=== PATIENT | female | born 1955 | race Caucasian/White ===

== ENCOUNTER 2023-03-06 09:54 | Outpatient (OUT) | payer MEDICARE, SELFPAY ==
--- NOTE | 2023-03-06 10:03 | MM_ITS ---
Patient: VANI KAUFFMAN Exam Date: 03/06/2023 : 1955 Gender:F Ordering : Judi Jimenez Admission #: [id number] Family : Order #: [id number] CLICK HERE TO VIEW EXAM RADIOLOGY REPORT PROCEDURE: MM TOMOSYNTHESIS SCREENING BI COMPARISON: MG MAMM SCREEN SISSY W CAD, 10/10/2020. INDICATIONS: Screening Mammogram Z12.31 Calculator Name NCI Breast Cancer Risk Assessment Tool 5 Year Breast Cancer Risk 4.70% Lifetime Breast Cancer Risk 16.00% Personal Breast Cancer No Personal Ovarian Cancer No Treatments None Family Cancers Mother with breast cancer at age 65; Aunt-maternal with breast cancer at age ~71; Aunt-maternal with breast cancer at age ~74; Cousin-maternal with breast cancer at age ~50; Grandmother-maternal with uterus cancer at age 80; Cousin-paternal with colon cancer at age ~57. LOCATION: [facility] BREAST COMPOSITION: Scattered areas fibroglandular density. FINDINGS: DIAGNOSTIC CATEGORY 2--BENIGN FINDING: RIGHT BREAST: No significant suspicious finding. Scattered benign-appearing calcifications are present. LEFT BREAST: No significant suspicious finding. Scattered benign-appearing calcifications are present. RECOMMENDATIONS: ROUTINE MAMMOGRAM AND CLINICAL EVALUATION IN 12 MONTHS. PLEASE NOTE: A NORMAL MAMMOGRAM DOES NOT EXCLUDE THE POSSIBILITY OF BREAST CANCER. A CLINICALLY SUSPICIOUS PALPABLE LUMP SHOULD BE BIOPSIED. Dictated by: Alok Booker M.D. on 03/06/2023 at 15:25 Approved by: Alok Booker M.D. on 03/06/2023 at 15:28
--- NOTE | 2023-03-06 10:04 | XR_ITS ---
[address] [address] Patient Name: VANI KAUFFMAN MRN: [id number] date: 1955 Sex: F Assigned Patient Location: [facility] Current Patient Location: [facility] Accession/Order Number: [id number] Exam Date: 03/06/2023 10:10 Report Date: 03/06/2023 11:09 At the request of: JASMINE KAMARA Procedure: XR DEXA axial skeleton EXAMINATION: XR DEXA axial skeleton HISTORY: Menopause Z78.0 COMPARISON: DEXA bone densitometry 12/08/2013 TECHNIQUE: Dual-energy X-ray absorptiometry (DXA) was performed. FINDINGS: SPINE ANALYSIS: Average bone mineral density is 1.424 g/cm2. T-score (standard deviation relative to young adult mean): 1.9 . +0.5% change since prior study. HIP ANALYSIS: Lowest bone mineral density is within the left femoral neck, 0.932 g/cm2. T-score (standard deviation relative to young adult mean): -0.8 . -4.2% change since prior study. IMPRESSION: [employer] Classification: Normal - Low Fracture Risk Electronically authenticated by: LARISSA MARTIN Date: 03/06/2023 11:09
== END 2023-03-06 09:55 ==
LOC: MAMMO 09:55
PROVIDERS: PCP Nurse Practitioner; Visit Provider Nurse Practitioner
DX: Z12.31 Encounter for screening mammogram for malignant neoplasm of breast (principal); Z78.0 Asymptomatic menopausal state; Z80.3 Family history of malignant neoplasm of breast; Z80.49 Family history of malignant neoplasm of other genital organs; Z80.0 Family history of malignant neoplasm of digestive organs
CPT/HCPCS: 77063; 77067; 77080

== ENCOUNTER 2023-03-30 07:33 | Outpatient (OUT) | payer MEDICARE, SELFPAY ==
[2023-03-30 08:21] LABS: Alanine Aminotransferase 32 U/L (14-59); Albumin Globulin Ratio 0.9; Albumin Level 3.6 g/dL (3.4-5.0); Alkaline Phosphatase 102 U/L (46-116); Anion Gap 11.8; Aspartate Amino Transferase 19 U/L (15-37); BUN Creatinine Ratio 29.9; Bilirubin Total 0.3 mg/dL (0.2-1.0); Calcium 9.1 mg/dL (8.5-10.1); Carbon Dioxide 30.4 mmol/L (21.0-32.0); Chloride 105 mmol/L (98-107); Estimated GFR (African America >60 (>=60); Estimated GFR (Non-African Ame >60 (>=60); Globulin 3.9 g/dL; Glucose 138 mg/dL (74-106); Potassium 4.2 mmol/L (3.5-5.1); Sodium 143 mmol/L (136-145); Total Protein 7.5 g/dL (6.4-8.2)
[2023-03-30 11:36] LABS: Estimated Average Glucose 163 mg/dL; Glycohemoglobin A1C 7.3 % (4.5-6.2)
== END 2023-03-30 07:34 | disposition home or self-care (01) ==
LOC: LAB 07:34
PROVIDERS: PCP Nurse Practitioner; Visit Provider Nurse Practitioner
DX: E11.65 Type 2 diabetes mellitus with hyperglycemia (principal)
CPT/HCPCS: 36415; 80053; 83036

== ENCOUNTER 2023-08-01 10:05 | Outpatient (OUT) | payer MEDICARE, SELFPAY ==
--- NOTE | 2023-08-01 | XR_ITS ---
The [address] [address] Patient Name: VANI KAUFFMAN MRN: [id number] date: 1955 Sex: F Assigned Patient Location: LAB Current Patient Location: Accession/Order Number: [id number] Exam Date: 08/01/2023 10:25 Report Date: 08/03/2023 08:38 At the request of: JASMINE KAMARA Procedure: XR cervical spine 2-3V EXAMINATION: XR cervical spine 2-3V HISTORY: Degenerative Disc Disease, Cervical (M50.30) , cervical pain for 3 months, right arm tingling COMPARISON: XR C-spine 12/18/2021 FINDINGS: BONES: Mechanical fusion C5-6 via anterior plate and screws; no appreciable hardware fracture or loosening. Straightening of normal lordotic curvature. Normal height and alignment of the vertebral bodies; no fracture spondylolisthesis. Mild degenerative facet arthropathy throughout. DISC SPACES: Intervertebral disc spacers at C4-5, C5-6, C6-7-7. Mild/moderate narrowing C2-3 and C3-4. PARASPINOUS: Negative. No paraspinous abnormality is seen. OTHER: Negative. XR/XR cervical spine 2-3V IMPRESSION: 1. No appreciable acute abnormality. 2. Stable surgical changes without evidence of hardware failure or change in alignment. 3. Multilevel mild-moderate degenerative changes; grossly stable. Electronically authenticated by: LARISSA MARTIN Date: 08/03/2023 08:38
[2023-08-01 12:23] LABS: Estimated Average Glucose 166 mg/dL; Glycohemoglobin A1C 7.4 % (4.5-6.2)
== END 2023-08-01 10:06 | disposition home or self-care (01) ==
LOC: LAB 10:10
PROVIDERS: PCP Nurse Practitioner; Visit Provider Nurse Practitioner
DX: M50.30 Other cervical disc degeneration, unspecified cervical region (principal); R53.83 Other fatigue; E11.65 Type 2 diabetes mellitus with hyperglycemia
CPT/HCPCS: 36415; 72040; 82607; 83036

== ENCOUNTER 2023-12-02 07:31 | Outpatient (OUT) | payer MEDICARE, SELFPAY ==
--- OUTSIDE RECORDS SUMMARY | 2023-12-02 07:34 | XMS_ITS | CCD ---
Author Name Unknown Address [id number] [place] [address] Organization [facility] Care Team Providers Care [employer] Name Role Phone Yash Caban Unavailable AICHHOLZ, INFECTION PREVENTION SPECIALIST JUDI Admitting Unavailable AICHHOLZ, INFECTION PREVENTION SPECIALIST JUDI Primary Care Unavailable AICHHOLZ, INFECTION PREVENTION SPECIALIST JUDI Consulting Unavailable AICHHOLZ, INFECTION PREVENTION SPECIALIST JUDI Attending Unavailable AICHHOLZ, INFECTION PREVENTION SPECIALIST JUDI Admitting Unavailable AICHHOLZ, INFECTION PREVENTION SPECIALIST JUDI Primary Care Unavailable AICHHOLZ, INFECTION PREVENTION SPECIALIST JUDI Consulting Unavailable AICHHOLZ, INFECTION PREVENTION SPECIALIST JUDI Attending Unavailable HOUSE, DR YANG Admitting Unavailable HOUSE, DR YANG Primary Care Unavailable HOUSE, DR YANG Consulting Unavailable HOUSE, DR YANG Attending Unavailable ROBCAESAR JOHANSEN Consulting Unavailable HOUSE, DR YANG Admitting Unavailable HOUSE, DR YANG Primary Care Unavailable HOUSE, DR YANG Attending Unavailable AICHJOSE, JUDI J Primary Care Physician ANH JUDI J Referring Unavailable AICHHOLZ, JUDI J Attending Unavailable AICHHOLZ, JUDI J Admitting Unavailable Aichholz TIMBER SETTER, Judi Unavailable Jamir Hare MD Primary Care Provider JUDI JIMENEZ Attending Unavailable Allergies Allergy Classification Reported Allergen(s) Allergy Type Date of Onset Reaction(s) Facility (4 sources) penicillAMINE Drug Allergy Unknown [employer] Other (4 sources) sulfaSALAzine Drug Allergy Unknown [facility] [employer] Other (1 source) Penicillins Drug allergy (disorder) 4 [facility] (1 source) Sulfonamides (Antibiotic) Drug allergy (disorder) 4 [facility] (1 source) Penicillins Propensity to adverse reactions 3 [facility] Healthcare (1 source) Sulfonamides (Antibiotic) Propensity to adverse reactions 3 [facility] Healthcare Medications Current Medications Medication Drug Class(es) Dates Sig (Normalized) Sig (Original) [id number] 200 actuat albuterol 0.09 mg/actuat metered dose inhaler (4 sources) beta2-Adrenergic Agonist Ventolin HFA 108 (90 Base) MCG/ACT Inhalation for 25 Active amLODIPine 10 mg oral tablet (5 sources) Dihydropyridine Calcium Channel Mabel Start: 10-01-2023 End: 12-30-2023 take 1 tablet by mouth in the morning amLODIPine (Norvasc) 10 MG tablet Indications: Primary hypertension (CMS/HCC) Take 1 tablet (10 mg) by mouth in the morning. 90 tablet 1 10/01/2023 12/30/2023 Active amLODIPine Besyl ate 10 MG Oral for 30 Active atorvastatin 80 mg oral tablet (1 source) HMG-CoA Reductase Inhibitor Start: 09-17-2023 End: 12-16-2023 take 1 tablet by mouth in the morning atorvastatin (Lipitor) 80 MG tablet Indications: Mixed hyperlipidemia (CMS/HCC) Take 1 tablet (80 mg) by mouth in the morning. 90 tablet 1 09/17/2023 12/16/2023 Active clopidogrel 75 mg oral tablet (5 sources) P2Y12 Platelet Inhibitor Start: 09-24-2023 End: 12-23-2023 take 1 tablet by mouth in the morning clopidogrel (Plavix) 75 MG tablet Indications: Primary hypertension (CMS/HCC) Take 1 tablet (75 mg) by mouth in the morning. 90 tablet 1 09/24/2023 12/23/2023 Active take 1 tablet by oscar th every twenty-four hours Plavix 75 MG 1 tablet Orally Once a day Active cyclobenzaprine hydrochloride 10 mg oral tablet (2 sources) Muscle Relaxant Start: 10-03-2021 take 1 tablet by mouth three times daily as needed Flexeril 10 MG 1 tablet as needed Orally tid for 15 day(s) Sep, Active Start: 10-03-2021 DULoxetine 30 mg delayed release oral capsule (4 sources) Serotonin and Norepinephrine Reuptake Inhibitor take 1 capsule by mouth every twenty-four hours DULoxetine HCl 30 MG 1 capsule Orally Once a day Active empagliflozin 25 mg oral tablet (5 sources) Sodium-Glucose Cotransporter 2 Inhibitor Start: End: 024 take 1 tablet by mouth in the morning empagliflozin (Jardiance) 25 MG Indications: Type 2 diabetes mellitus treated without insulin (CMS/HCC) Take 1 tablet (25 mg) by mouth in the morning. 90 tablet 1 09/07/2023 12/06/2023 Active take 1 tablet by oscar th every twenty-four hours Jardiance 25 MG 1 tablet Orally Once a day Active ergocalciferol 1.25 mg oral capsule (1 source) Provitamin D2 Compound take 1 capsule by mouth every week ergocalciferol (Vitamin D-2) 1.25 MG (44391 UT) capsule Take 1.25 mg by mouth 1 (one) time per week 0 Active famotidine 20 mg oral tablet (2 sources) Histamine-2 Receptor Antagonist Start: 2023 End: 2023 take 1 tablet by mouth at bedtime famotidine (Pepcid) 20 MG tablet Indications: Gastroesophageal reflux disease without esophagitis Take 1 tablet (20 mg) by mouth at bedtime 30 tablet 5 11/13/2023 12/13/2023 Active 3 ml insulin aspart protamine, human 70 unt/ml / insulin aspart, human 30 unt/ml pen injector (4 sources) Insulin Analog NovoLOG Mix 70/3 0 FlexPen (70-30) 100 UNIT/ML Subcutaneous for 30 Active insulin detemir 100 unt/ml injectable solution (1 source) Insulin Analog inject 60 [IU] by subcutaneous injection at bedtime insulin detemir (Levemir) 100 UNIT/ML injection Inject 60 Units under the skin at bedtime 0 Active losartan potassium 100 mg oral tablet (4 sources) Angiotensin 2 Receptor Mabel Losartan Potassium 1 00 MG Oral for 30 Active metFORMIN hydrochloride 1000 mg oral tablet (5 sources) Biguanide Start: 2022 End: 2023 take 1 tablet by mouth in the morning metFORMIN (Glucophage) 1000 MG tablet Indications: Type 2 diabetes mellitus treated without insulin (CMS/HCC) Take 1 tablet (1,000 mg) by mouth in the morning and 1 tablet (1,000 mg) in the evening. Take with meals. 180 tablet 1 09/07/2023 12/06/2023 Active metFORMIN HCl 10 00 MG Oral for 30 Active pantoprazole 40 mg delayed release oral tablet (1 source) Proton Pump Inhibitor Start: 10-06-2023 End: 01-04-2024 take 1 tablet by mouth in the morning pantoprazole (ProtoNix) 40 MG EC tablet Indications: Gastroesophageal reflux disease without esophagitis Take 1 tablet (40 mg) by mouth in the morning. 90 tablet 1 10/06/2023 01/04/2024 Active semaglutide (Ozempic, 1 MG/DOSE,) 4 MG/3ML solution pen-injector (1 source) inject 1 mg by subcutaneous injection every week semaglutide (Ozempic, 1 MG/DOSE,) 4 MG/3ML solution pen-injector Inject 1 mg under the skin 1 (one) time per week 0 Active Problems Problem Classification Problem Date Documented Date Episodic/Chronic Chronic obstructive pulmonary disease and bronchiectasis (1 source) Chronic obstructive pulmonary disease, unspecified; Translations: [COPD UNSPECIFIED] Onset: 05-27-2022 Chronic Diabetes mellitus with complications (4 sources) Type 2 diabetes mellitus with hyperglycemia; Translations: [TYPE 2 DM W/HYPERGLYCEMIA] Onset: 12-27-2022 Chronic Diabetes mellitus without complication (1 source) Type 2 diabetes mellitus without complications; Translations: [TYPE 2 DM WITHOUT COMPLICATIONS] Onset: 05-27-2022 Chronic Disorders of lipid metabolism (2 sources) Hyperlipidemia, unspecified; Translations: [Mixed hyperlipidemia] Onset: 12-30-2022 09-17-2023 Chronic Esophageal disorders (2 sources) Gastroesophageal reflux disease without esophagitis; Translations: [Gastro-esophageal reflux disease without esophagitis] Onset: 10-06-2023 11-13-2023 Chronic Essential hypertension (2 sources) Essential (primary) hypertension; Translations: [Essential hypertension] Onset: 05-27-2022 10-01-2023 Chronic Malaise and fatigue (1 source) Other fatigue; Translations: [OTHER FATIGUE] Onset: 12-30-2022 Episodic Osteoarthritis (1 source) Unspecified osteoarthritis, unspecified site; Translations: [UNSPECIFIED OSTEOARTHRITIS UNS SITE] Onset: 05-27-2022 Chronic Other connective tissue disease (4 sources) History of total knee arthroplasty; Translations: [Presence of right artificial knee joint] Chronic Other liver diseases (4 sources) Abnormal levels of other serum enzymes; Translations: [ABNORMAL LEVELS OTHER SERUM ENZYMES] Onset: 01-17-2023 Episodic Spondylosis; intervertebral disc disorders; other back problems (11 sources) Cervical spondylosis; Translations: [Other spondylosis with radiculopathy, cervical region] Onset: 08-12-2021 Resolved: 12-18-2021 Chronic Results Test Name Value Interpretation Reference Range Facility Consent for Treatmenton Consent for Treatment [id number] #1.00TIFF Normal [facility] EMG Electromyographyon 09-11 EMG Electromyography [id number] 2 [id number] 1#1.00TIFF Normal [facility] Neurology Forms- [employer] Neurology Forms- Text [id number] 12 [id number] 0#1.00TIFF Normal [facility] Physician Orderon 06-03-2023 Physician Order [id number] #1.00CD:127 Normal [facility] LIVER PROFILEon 01-17-2023 Albumin [Mass/Vol] 3.4 g/dL Normal 3.4-5.0 [facility] Comment on above: Performed By: #### C BC #### [facility] [address] [place] [address] Dr. Willam Novoa Albumin/Globulin [Mass ratio] 0.9 {ratio} Normal [facility] Comment on above: Performed By: #### C BC #### [facility] [address] [place] [address] Dr. Willam Novoa ALP [Catalytic activity/Vol] 116 U/L Normal 46-116 [facility] Comment on above: Performed By: #### C BC #### [facility] [address] [place] [address] Dr. Willam Novoa ALT [Catalytic activity/Vol] 35 U/L Normal 14-59 [facility] Comment on above: Performed By: #### C BC #### [facility] [address] [place] [address] Dr. Willam Novoa AST [Catalytic activity/Vol] 14 U/L Critically low 15-37 [facility] Comment on above: Performed By: #### C BC #### [facility] [address] [place] [address] Dr. Willam Novoa BILI, CONJUGATED 0.1 mg/dL Normal 0.0-0.2 [facility] Comment on above: Performed By: #### C BC #### [facility] [address] [place] [address] Dr. Willam Novoa Bilirubin [Mass/Vol] 0.3 mg/dL Normal 0.2-1.0 [facility] Comment on above: Performed By: #### C BC #### [facility] [address] [place] [address] Dr. Willam Novoa Globulin (S) [Mass/Vol] 4.0 g/dL Normal [facility] Comment on above: Performed By: #### C BC #### [facility] [address] [place] [address] Dr. Willam Novoa Protein [Mass/Vol] 7.4 g/dL Normal 6.4-8.2 [facility] Comment on above: Performed By: #### C BC #### [facility] [address] [place] [address] Dr. Willam Novoa CBC AUTO DIFFon 12-27-2022 BASO # 0.1 103/ul Normal 0.0-0.1 [facility] Comment on above: Performed By: #### C BC #### [facility] [address] [place] [address] Dr. Willam Novoa Basophils/100 WBC (Bld) 1.0 % Normal 0.2-2.[address] [facility] Comment on above: Performed By: #### C BC #### [facility] [address] [place] [address] Dr. iWllam Novoa EO # 0.3 103/ul Normal 0.0-0.7 [facility] Comment on above: Performed By: #### C BC #### [facility] [address] [place] [address] Dr. Willam Novoa Eosinophils/100 WBC (Bld) 3.6 % Normal 0.9-7.0 [facility] Comment on above: Performed By: #### C BC #### [facility] [address] [place] [address] Dr. Willam Novoa Erythrocyte distribution width (RBC) [Ratio] 13.2 % Normal 11.0-15.0 [facility] Comment on above: Performed By: #### C BC #### [facility] [address] [place] [address] Dr. Willam Novoa Hematocrit (Bld) [Volume fraction] 45.4 % Normal 36.0-48.0 [facility] Comment on above: Performed By: #### C BC #### [facility] [address] [place] [address] Dr. Willam Novoa Hemoglobin (Bld) [Mass/Vol] 14.4 g/dL Normal 12.0-16.0 [facility] Comment on above: Performed By: #### C BC #### [facility] [address] [place] [address] Dr. Willam Novoa IG # 0.03 10e3/ul Normal 0.00-0.03 [facility] Comment on above: Performed By: #### C BC #### [facility] [address] [place] [address] Dr. Willam Novoa IG % 0.4 % Normal 0.0-0.5 [facility] Comment on above: Performed By: #### C BC #### [facility] [address] [place] [address] Dr. Willam Novoa LYMPH # 2.5 103/ul Normal 1.2-3.8 [facility] Comment on above: Performed By: #### C BC #### [facility] [address] [place] [address] Dr. Willam Novoa Lymphocytes/100 WBC (Bld) 29.9 % Normal 20.5-60.0 [facility] Comment on above: Performed By: #### C BC #### [facility] [address] [place] [address] Dr. Willam Novoa MANUAL DIFF REQ NO Normal [facility] Comment on above: Performed By: #### C BC #### [facility] [address] [place] [address] Dr. Willam Novoa MCH (RBC) [Entitic mass] 29.9 pg Normal 26.7-34.0 [facility] Comment on above: Performed By: #### C BC #### [facility] [address] [place] [address] Dr. Willam Novoa MCHC (RBC) [Mass/Vol] 31.7 g/dL Normal 29.9-35.2 [facility] Comment on above: Performed By: #### C BC #### [facility] [address] [place] [address] Dr. Willam Novoa MCV (RBC) [Entitic vol] 94.4 fL Normal 81.0-99.[address] [facility] Comment on above: Performed By: #### C BC #### [facility] [address] [place] [address] Dr. Willam Novoa MONO # 0.8 103/ul Normal 0.3-0.8 [facility] Comment on above: Performed By: #### C BC #### [facility] [address] [place] [address] Dr. Willam Novoa Monocytes/100 WBC (Bld) 9.2 % Normal 1.7-12.[address] [facility] Comment on above: Performed By: #### C BC #### [facility] [address] [place] [address] Dr. Willam Novoa NEUT # 4.7 103/ul Normal 1.4-6.5 [facility] Comment on above: Performed By: #### C BC #### [facility] [address] [place] [address] Dr. Willam Novoa Neutrophils/100 WBC (Bld) 55.9 % Normal 43.0-75.0 [facility] Comment on above: Performed By: #### C BC #### [facility] [address] [place] [address] Dr. Willam Novoa Platelet mean volume (Bld) [Entitic vol] 9.4 fL Critically low 9.5-13.5 [facility] Comment on above: Performed By: #### C BC #### [facility] [address] [place] [address] Dr. Willam Novoa PLT 311 103/ul Normal 150-450 [facility] Comment on above: Performed By: #### C BC #### [facility] [address] [place] [address] Dr. Willam Novoa RBC 4.81 106/ul Normal 4.20-5.40 [facility] Comment on above: Performed By: #### C BC #### [facility] [address] [place] [address] Dr. Willam Novoa WBC 8.4 103/ul Normal 4.0-11.0 [facility] Comment on above: Performed By: #### C BC #### [facility] [address] [place] [address] Dr. Willam Novoa FREE T4on 12-27-2022 Free T4 [Mass/Vol] 1.13 ng/dL Normal 0.76-1.46 [facility] Comment on above: Performed By: #### C BC #### [facility] [address] [place] [address] Dr. Willam Novoa GLYCOHEMOGLOBIN A1Con 2022 ADA RECOMMENDATION SEE BELOW Normal [facility] Comment on above: Result Comment: ADA RECOMMENDED LIMIT 4.0 - 6.0 ADA THERAPEUTIC TARGET < 7.0 ACTION SUGGESTED > 7.0 Performed By: #### C BC #### [facility] [address] [place] [address] Dr. Willam Novoa Glucose [Mass/Vol] 258 mg/dL Normal [facility] Comment on above: Performed By: #### C BC #### [facility] [address] [place] [address] Dr. Willam Novoa HbA1c (Bld) [Mass fraction] 10.6 % Critically high 4.5-6.2 [facility] Comment on above: Performed By: #### C BC #### [facility] [address] [address] [address] Willam Novoa LIPID PROFILEon 12-27-2022 CHOL-HDL RATIO NORM SEE BELOW Normal [facility] Comment on above: Result Comment: 3.3 - 4.4 LOW RISK 4.4 - 7.1 AVERAGE RISK 7.1 - 11.0 MODERATE RISK >11.0 HIGH RISK Performed By: #### C BC #### [facility] [address] [address] [address] Willam Novoa Cholesterol [Mass/Vol] 158 mg/dL Normal <=200 [facility] Comment on above: Performed By: #### C BC #### [facility] [address] [address] [address] Willam Novoa Cholesterol in HDL [Mass/Vol] 51 mg/dL Normal 40-60 [facility] Comment on above: Performed By: #### C BC #### [facility] [address] [address] [address] Willam Novoa Cholesterol in LDL [Mass/Vol] 81.8 mg/dL Normal [facility] Comment on above: Performed By: #### C BC #### [facility] [address] [address] [address] Willam Novoa Cholesterol.total/Xiomy sterol in HDL [Mass ratio] 3.1 {ratio} Normal [facility] Comment on above: Performed By: #### C BC #### [facility] [address] [address] [address] Willam Novoa HDL NORMAL > or = 60 mg/dl - LOW CARDIOVASCULAR RISK <40 mg/dl - HIGH CARDIOVASCULAR RISK Normal [facility] Comment on above: Performed By: #### C BC #### [facility] [id number] Willam Novoa LDL CALC NORMAL SEE BELOW Normal [facility] Comment on above: Result Comment: <100 mg/dl OPTIMAL 100 - 129 mg/dl NEAR OR ABOVE OPTIMAL 130 - 159 mg/dl BORDERLINE HIGH 160 - 189 mg/dl HIGH >190 mg/dl VERY HIGH Performed By: #### C BC #### [facility] [address] [place], [place] [address] Dr. Willam Novoa Triglyceride [Mass/Vol] 126 mg/dL Normal <=150 [facility] Comment on above: Performed By: #### C BC #### [facility] [address] [place] [address] Dr. Willam Novoa VLDL CALC 25.2 mg/dL Normal [facility] Comment on above: Performed By: #### C BC #### [facility] [address] [place] [address] Dr. Willam Novoa MICROALBUMIN, RAND URon 12-04 mALB 1.3 mg/L Normal <=30.0 [facility] Comment on above: Performed By: #### M ALBR #### [facility] [address] [place] [address] Dr. Willam Novoa PROF 14(COMP METB)on 023 Albumin [Mass/Vol] 3.9 g/dL Normal 3.4-5.0 [facility] Comment on above: Performed By: #### C MP, LIPID, TSH #### [facility] [address] [place] [address] Dr. Willam Novoa Albumin/Globulin [Mass ratio] 1.0 {ratio} Normal [facility] Comment on above: Performed By: #### C MP, LIPID, TSH #### [facility] [address] [place] [address] Dr. Willam Novoa ALP [Catalytic activity/Vol] 161 U/L Critically high 46-116 [facility] Comment on above: Performed By: #### C MP, LIPID, TSH #### [facility] [address] [place] [address] Dr. Willam Novoa ALT [Catalytic activity/Vol] 29 U/L Normal 14-59 [facility] Comment on above: Performed By: #### C MP, LIPID, TSH #### [facility] [address] [place] [address] Dr. Willam Novoa Anion gap [Moles/Vol] 10.7 mmol/L Normal [facility] Comment on above: Performed By: #### C MP, LIPID, TSH #### [facility] [address] [address] [address] Willam Novoa AST [Catalytic activity/Vol] 10 U/L Critically low 15-37 [facility] Comment on above: Performed By: #### C MP, LIPID, TSH #### [facility] [address] [address] [address] Willam Novoa Bilirubin [Mass/Vol] 0.3 mg/dL Normal 0.2-1.0 [facility] Comment on above: Performed By: #### C MP, LIPID, TSH #### [facility] [address] [address] [address] Willam Novoa Calcium [Mass/Vol] 9.4 mg/dL Normal 8.5-10.1 [facility] Comment on above: Performed By: #### C MP, LIPID, TSH #### [facility] [address] [place] [address] Dr. Willam Novoa Chloride [Moles/Vol] 103 mmol/L Normal 98-107 [facility] Comment on above: Performed By: #### C MP, LIPID, TSH #### [facility] [address] [address] [address] Willam Novoa CO2 [Moles/Vol] 28.3 mmol/L Normal 21.0-32.0 [facility] Comment on above: Performed By: #### C MP, LIPID, TSH #### [facility] [address] [address] [address] Willam Novoa Creatinine [Mass/Vol] 0.72 mg/dL Normal 0.55-1.02 [facility] Comment on above: Performed By: #### C MP, LIPID, TSH #### [facility] [address] [address] [address] Willam Novoa EGFR-AF BULGARIAN >60 Normal >=60 [facility] Comment on above: Performed By: #### C MP, LIPID, TSH #### [facility] [address] [address] [address] Willam Novoa EGFR-NON AF BULGARIAN >60 Normal >=60 [facility] Comment on above: Performed By: #### C MP, LIPID, TSH #### [facility] [address] [address] [address] Willam Novoa Globulin (S) [Mass/Vol] 3.8 g/dL Normal [facility] Comment on above: Performed By: #### C MP, LIPID, TSH #### [facility] [address] [address] [address] Willam Novoa Glucose [Mass/Vol] 287 mg/dL Critically high 74-[address] [facility] Comment on above: Performed By: #### C MP, LIPID, TSH #### [facility] [address] [place] [address] Dr. Willam Novoa Potassium [Moles/Vol] 4.0 mmol/L Normal 3.5-5.1 [facility] Comment on above: Performed By: #### C MP, LIPID, TSH #### [facility] [address] [place] [address] Dr. Willam Novoa Protein [Mass/Vol] 7.7 g/dL Normal 6.4-8.2 [facility] Comment on above: Performed By: #### C MP, LIPID, TSH #### [facility] [address] [place] [address] Dr. Willam Novoa Sodium [Moles/Vol] 138 mmol/L Normal 136-145 [facility] Comment on above: Performed By: #### C MP, LIPID, TSH #### [facility] [address] [place] [address] Dr. Willam Novoa Urea nitrogen [Mass/Vol] 13.0 mg/dL Normal 7.0-18.0 [facility] Comment on above: Performed By: #### C MP, LIPID, TSH #### [facility] [address] [place] [address] Dr. Willam Novoa Urea nitrogen/Creatinine [Mass ratio] 18.1 mg/mg Normal [facility] Comment on above: Performed By: #### C MP, LIPID, TSH #### [facility] [address] [place] [address] Dr. Willam Novoa TSHon 12-27-2022 TSH 1.361 uIU/mL Normal 0.358-3.740 [facility] Comment on above: Performed By: #### C MP, LIPID, TSH #### [facility] [address] [place] [address] Dr. Willam Novoa UA RANDOM W/MICROSCOPICon BACTERIA NONE SEEN Normal NONE SEEN [facility] Comment on above: Performed By: #### U AMIC #### [facility] [address] [place] [address] Dr. Willam Novoa Bilirubin Ql (U) Negative Normal NEGATIVE [facility] Comment on above: Performed By: #### U AMIC #### [facility] [address] [place] [address] Dr. Willam Novoa CAST NONE SEEN Normal NONE SEEN [facility] Comment on above: Performed By: #### U AMIC #### [facility] [address] [place] [address] Dr. Willam Novoa Clarity (U) CLEAR Normal CLEAR [facility] Comment on above: Performed By: #### U AMIC #### [facility] [address] [place] [address] Dr. Willam Novoa Color (U) LT. YELLOW Normal YELLOW [facility] Comment on above: Performed By: #### U AMIC #### [facility] [address] [place] [address] Dr. Willam Novoa Crystals LM Nom (Urine sed) NONE SEEN Normal NONE SEEN [facility] Comment on above: Performed By: #### U AMIC #### [facility] [address] [place] [address] Dr. Willam Novoa Epithelial cells LM Ql (Urine sed) RARE Normal NONE SEEN /RARE [facility] Comment on above: Performed By: #### U AMIC #### [facility] [address] [place] [address] Dr. Willam Novoa Glucose Ql (U) >1000 Abnormal NEGATIVE [facility] Comment on above: Performed By: #### U AMIC #### [facility] [address] [place] [address] Dr. Willam Novoa Hemoglobin Ql (U) Negative Normal NEGATIVE [facility] Comment on above: Performed By: #### U AMIC #### [facility] [address] [address] [address] Willam Novoa Ketones Ql (U) Negative Normal NEGATIVE [facility] Comment on above: Performed By: #### U AMIC #### [facility] [address] [address] [address] Willam Novoa LEUKOCYTES Negative Normal NEGATIVE [facility] Comment on above: Performed By: #### U AMIC #### [facility] [address] [address] [address] Willam Novoa MUCOUS NONE SEEN Normal NONE SEEN [facility] Comment on above: Performed By: #### U AMIC #### [facility] [address] [place] [address] Dr. Willam Novoa Nitrite Ql (U) Negative Normal NEGATIVE [facility] Comment on above: Performed By: #### U AMIC #### [facility] [address] [address] [address] Willam Novoa pH (U) 6.0 [pH] Normal 5-9 [facility] Comment on above: Performed By: #### U AMIC #### [facility] [address] [address] [address] Willam Novoa RBC NONE SEEN Abnormal 0-2 [facility] Comment on above: Performed By: #### U AMIC #### [facility] [address] [address] [address] Willam Novoa SPEC GRAVITY <=1.005 Abnormal 1.005-<=1.025 [facility] Comment on above: Performed By: #### U AMIC #### [facility] [address] [address] [address] Willam Novoa UA PROTEIN Negative Normal NEGATIVE/ TRACE [facility] Comment on above: Performed By: #### U AMIC #### [facility] [address] [place] [address] Dr. Willam Novoa Urobilinogen Qn (U) 0.2 {Kalpesh'U}/dL Normal 0.2 - 1. 0 [facility] Comment on above: Performed By: #### U AMIC #### [facility] [address] [place] [address] Dr. Willam Novoa WBC NONE SEEN Normal NONE SEEN [facility] Comment on above: Performed By: #### U AMIC #### [facility] [address] [place] [address] Dr. Willam Novoa MICROALBUMIN URINEon 022 Albumin, Urine 5.9 ug/mL Normal Not Estab. [facility] Comment on above: Performed By: #### M ALBLC #### [facility] [address] [place] [address] Dr. Willam Novoa T4 LABCORPon 05-25-2022 T4 [Mass/Vol] 8.3 ug/dL Normal 4.5-12.0 [facility] Comment on above: Performed By: #### C BC #### [facility] [address] [place] [address] Dr. Willam Novoa CBC AUTO DIFFon 05-24-2022 BASO # 0.1 103/ul Normal 0.0-0.1 [facility] Comment on above: Performed By: #### C BC #### [facility] [address] [place] [address] Dr. Willam Novoa Basophils/100 WBC (Bld) 0.9 % Normal 0.2-2.[address] [facility] Comment on above: Performed By: #### C BC #### [facility] [address] [place] [address] Dr. Willam Novoa EO # 0.3 103/ul Normal 0.0-0.7 [facility] Comment on above: Performed By: #### C BC #### [facility] [address] [place] [address] Dr. Willam Novoa Eosinophils/100 WBC (Bld) 3.5 % Normal 0.9-7.0 [facility] Comment on above: Performed By: #### C BC #### [facility] [address] [place] [address] Dr. Willam Novoa Erythrocyte distribution width (RBC) [Ratio] 13.2 % Normal 11.0-15.0 [facility] Comment on above: Performed By: #### C BC #### [facility] [address] [place] [address] Dr. Willam Novoa Hematocrit (Bld) [Volume fraction] 45.7 % Normal 36.0-48.0 [facility] Comment on above: Performed By: #### C BC #### [facility] [address] [place] [address] Dr. Willam Novoa Hemoglobin (Bld) [Mass/Vol] 14.3 g/dL Normal 12.0-16.0 [facility] Comment on above: Performed By: #### C BC #### [facility] [address] [place] [address] Dr. Willam Novoa IG # 0.03 10e3/ul Normal 0.00-0.03 [facility] Comment on above: Performed By: #### C BC #### [facility] [address] [place] [address] Dr. Willam Novoa IG % 0.3 % Normal 0.0-0.5 [facility] Comment on above: Performed By: #### C BC #### [facility] [address] [place] [address] Dr. Willam Novoa LYMPH # 3.5 103/ul Normal 1.2-3.8 [facility] Comment on above: Performed By: #### C BC #### [facility] [address] [place] [address] Dr. Willam Novoa Lymphocytes/100 WBC (Bld) 38.7 % Normal 20.5-60.0 [facility] Comment on above: Performed By: #### C BC #### [facility] [address] [place] [address] Dr. Willam Novoa MANUAL DIFF REQ NO Normal [facility] Comment on above: Performed By: #### C BC #### [facility] [address] [place] [address] Dr. Willam Novoa MCH (RBC) [Entitic mass] 29.8 pg Normal 26.7-34.0 [facility] Comment on above: Performed By: #### C BC #### [facility] [address] [address] [address] Willam Novoa MCHC (RBC) [Mass/Vol] 31.3 g/dL Normal 29.9-35.2 [facility] Comment on above: Performed By: #### C BC #### [facility] [address] [place] [address] Dr. Willam Novoa MCV (RBC) [Entitic vol] 95.2 fL Normal 81.0-99.[address] [facility] Comment on above: Performed By: #### C BC #### [facility] [address] [place] [address] Dr. Willam Novoa MONO # 0.8 103/ul Normal 0.3-0.8 [facility] Comment on above: Performed By: #### C BC #### [facility] [address] [place] [address] Dr. Willam Novoa Monocytes/100 WBC (Bld) 9.3 % Normal 1.7-12.[address] [facility] Comment on above: Performed By: #### C BC #### [facility] [address] [place] [address] Dr. Willam Novoa NEUT # 4.2 103/ul Normal 1.4-6.5 [facility] Comment on above: Performed By: #### C BC #### [facility] [address] [place] [address] Dr. Willam Novoa Neutrophils/100 WBC (Bld) 47.3 % Normal 43.0-75.0 [facility] Comment on above: Performed By: #### C BC #### [facility] [address] [place] [address] Dr. Willam Novoa Platelet mean volume (Bld) [Entitic vol] 9.3 fL Critically low 9.5-13.5 [facility] Comment on above: Performed By: #### C BC #### [facility] [address] [place] [address] Dr. Willam Novoa PLT 295 103/ul Normal 150-450 [facility] Comment on above: Performed By: #### C BC #### [facility] [address] [address] [address] Willam Novoa RBC 4.80 106/ul Normal 4.20-5.40 [facility] Comment on above: Performed By: #### C BC #### [facility] [address] [place] [address] Dr. Willam Novoa WBC 8.9 103/ul Normal 4.0-11.0 [facility] Comment on above: Performed By: #### C BC #### [facility] [address] [place] [address] Dr. Willam Novoa GLYCOHEMOGLOBIN A1Con 2021 ADA RECOMMENDATION SEE BELOW Normal [facility] Comment on above: Result Comment: ADA RECOMMENDED LIMIT 4.0 - 6.0 ADA THERAPEUTIC TARGET < 7.0 ACTION SUGGESTED > 7.0 Performed By: #### A 1C #### [facility] [address] [place] [address] Dr. Willam Novoa Glucose [Mass/Vol] 200 mg/dL Normal [facility] Comment on above: Performed By: #### A 1C #### [facility] [address] [place] [address] Dr. Willam Novoa HbA1c (Bld) [Mass fraction] 8.6 % Critically high 4.5-6.2 [facility] Comment on above: Performed By: #### A 1C #### [facility] [address] [place] [address] Dr. Willam Novoa PROF 14(COMP METB)on 022 Albumin [Mass/Vol] 4.1 g/dL Normal 3.4-5.0 [facility] Comment on above: Performed By: #### T SAVANNAH, CMP #### [facility] [address] [place] [address] Dr. Willam Novoa Albumin/Globulin [Mass ratio] 1.2 {ratio} Normal [facility] Comment on above: Performed By: #### T SAVANNAH, CMP #### [facility] [address] [place] [address] Dr. Willam Novoa ALP [Catalytic activity/Vol] 121 U/L Critically high 46-116 [facility] Comment on above: Performed By: #### T SAVANNAH, CMP #### [facility] [address] [address] [address] Willam Novoa ALT [Catalytic activity/Vol] 31 U/L Normal 14-59 [facility] Comment on above: Performed By: #### T SAVANNAH, CMP #### [facility] [address] [address] [address] Willam Novoa Anion gap [Moles/Vol] 15.9 mmol/L Normal [facility] Comment on above: Performed By: #### T SAVANNAH, CMP #### [facility] [address] [place] [address] Dr. Willam Novoa AST [Catalytic activity/Vol] 13 U/L Critically low 15-37 [facility] Comment on above: Performed By: #### T SAVANNAH, CMP #### [facility] [address] [place] [address] Dr. Willam Novoa Bilirubin [Mass/Vol] 0.4 mg/dL Normal 0.2-1.0 [facility] Comment on above: Performed By: #### T SAVANNAH, CMP #### [facility] [address] [place] [address] Dr. Willam Novoa Calcium [Mass/Vol] 9.3 mg/dL Normal 8.5-10.1 [facility] Comment on above: Performed By: #### T SAVANNAH, CMP #### [facility] [address] [place] [address] Dr. Willam Novoa Chloride [Moles/Vol] 103 mmol/L Normal 98-107 [facility] Comment on above: Performed By: #### T SAVANNAH, CMP #### [facility] [address] [place] [address] Dr. Willam Novoa CO2 [Moles/Vol] 27.1 mmol/L Normal 21.0-32.0 [facility] Comment on above: Performed By: #### T SAVANNAH, CMP #### [facility] [address] [place] [address] Dr. Willam Novoa Creatinine [Mass/Vol] 0.74 mg/dL Normal 0.55-1.02 [facility] Comment on above: Performed By: #### T SH, CMP #### [facility] [address] [place] [address] Dr. Wilalm Novoa EGFR-AF BULGARIAN >60 Normal >=60 [facility] Comment on above: Performed By: #### T SH, CMP #### [facility] [address] [address] [address] Willam Novoa EGFR-NON AF BULGARIAN >60 Normal >=60 [facility] Comment on above: Performed By: #### T SH, CMP #### [facility] [address] [place] [address] Dr. Willam Novoa Globulin (S) [Mass/Vol] 3.3 g/dL Normal [facility] Comment on above: Performed By: #### T SH, CMP #### [facility] [address] [place] [address] Dr. Willam Novoa Glucose [Mass/Vol] 194 mg/dL Critically high 74-[address] [facility] Comment on above: Performed By: #### T SH, CMP #### [facility] [address] [place] [address] Dr. Willam Novoa Potassium [Moles/Vol] 4.0 mmol/L Normal 3.5-5.1 [facility] Comment on above: Performed By: #### T SH, CMP #### [facility] [address] [place] [address] Dr. Willam Novoa Protein [Mass/Vol] 7.4 g/dL Normal 6.4-8.2 [facility] Comment on above: Performed By: #### T SH, CMP #### [facility] [address] [place] [address] Dr. Willam Novoa Sodium [Moles/Vol] 142 mmol/L Normal 136-145 [facility] Comment on above: Performed By: #### T SH, CMP #### [facility] [address] [place] [address] Dr. Willam Novoa Urea nitrogen [Mass/Vol] 19.0 mg/dL Critically high 7.0-18.0 [facility] Comment on above: Performed By: #### T SH, CMP #### [facility] [address] [address] [address] Willam Novoa Urea nitrogen/Creatinine [Mass ratio] 25.7 mg/mg Normal [facility] Comment on above: Performed By: #### T SH, CMP #### [facility] [address] [address] [address] Willam Novoa TSHon 05-24-2022 TSH 1.350 uIU/mL Normal 0.358-3.740 [facility] Comment on above: Performed By: #### T SH, CMP #### [facility] [address] [address] [address] Willam Novoa XR cervical spine 2Von 10-19 XR cervical spine 2V [facility] [place] [address] [place] [address] XRay Report Signed Patient: Dionne Kauffman MR#: [id number] 47 : 1955 Acct:[id number] Age/Sex: 65 / F ADM Date: 10/19/21 Loc: XD Room: Type: [facility] Attending Dr: Yash Caban MD Ordering Provider: Yash Caban MD Date of Service: 10/19/21 XR/XR cervical spine 2V: M47.12 Copies to: Yash Caban MD 2 views of thecervical spine HISTORY: Follow-up cervical spine surgery. COMPARISON: 09/19/21 There are straightening of the cervical lordosis. C4-5 fusion changes noted. C5-6 anterior plate and screw fixation and interbody fusion change is unremarkable. There is no hardware failure. No acute cervical spine fracture identified. No cervical spine listhesis identified. Disc spaces are adequate. Facets are in adequate alignment. The dens is intact. The craniocervical junction is unremarkable. No paraspinal soft tissue abnormality seen. XR/XR cervical spine 2V IMPRESSION: Uncomplicated C5-6 fusion Impression dictated by: Juno Yo M.D.10/19/2021 1:23 PM Dictation Location: [place] [address] Transcribed By: [facility] 10/19/21 1323 Dictated By: Juno Yo DO 10/19/21 1319 Signed By: 10/19/21 1323 [facility] Glucose Poct Glucometerson 1 11-21-2020 Commemt1 Glu2: Cleaned Meter [facility] Comment on above: Result Comment: PERF ORMED BY: [facility] [address] [place] [address] PATHOLOGIST [employer] YUE CONWAY M.D. Performed By: #### G LULS ####Point of Care testing, Glucose [Mass/Vol] 167 mg/dL [facility] Comment on above: Result Comment: [place] Glucose Reference Range is dependent on time and content of last meal. Glucose of more than 200 mg/dL in a nonstressed, ambulatory subject supports the diagnosis of Diabetes Mellitus. Performed By: #### G LULS ####Point of Care testing, Glucose Poct Glucometerson 1 11-20-2020 Glucose [Mass/Vol] 294 mg/dL [facility] Comment on above: Result Comment: [place] Glucose Reference Range is dependent on time and content of last meal. Glucose of more than 200 mg/dL in a nonstressed, ambulatory subject supports the diagnosis of Diabetes Mellitus. PERFORMED BY: [facility] [address] [place] [address] PATHOLOGIST [employer] YUE CONWAY M.D. Performed By: #### G LULS #### Point of Care testing , Commemt1 Glu2: Cleaned Meter [facility] Comment on above: Result Comment: PERF ORMED BY: [facility] [address] [place] [address] PATHOLOGIST [employer] YUE CONWAY M.D. Performed By: #### G LULS #### Point of Care testing , Glucose [Mass/Vol] 205 mg/dL Normal [facility] Comment on above: Result Comment: [place] Glucose Reference Range is dependent on time and content of last meal. Glucose of more than 200 mg/dL in a nonstressed, ambulatory subject supports the diagnosis of Diabetes Mellitus. Performed By: #### G LULS #### Point of Care testing , Commemt1 Glu2: Cleaned Meter Normal [facility] Comment on above: Result Comment: PERF ORMED BY: [place] [address] PATHOLOGIST [employer] YUE CONWAY M.D. Performed By: #### G LULS #### Point of Care testing , Glucose [Mass/Vol] 186 mg/dL Normal [facility] Comment on above: Result Comment: [place] Glucose Reference Range is dependent on time and content of last meal. Glucose of more than 200 mg/dL in a nonstressed, ambulatory subject supports the diagnosis of Diabetes Mellitus. Performed By: #### G LULS #### Point of Care testing , Glucose [Mass/Vol] 175 mg/dL Normal [facility] Comment on above: Result Comment: [place] Glucose Reference Range is dependent on time and content of last meal. Glucose of more than 200 mg/dL in a nonstressed, ambulatory subject supports the diagnosis of Diabetes Mellitus. PERFORMED BY: [place] [address] PATHOLOGIST [employer] YUE CONWAY M.D. Performed By: #### G LULS #### Point of Care testing , XR cervical spine 1Von 09-19 XR cervical spine 1V [facility] Main [place] [id number] XRay Report Signed Patient: Dionne Kauffman MR#: [id number] 47 : 1955 Acct:[id number] Age/Sex: 65 / F ADM Date: 09/19/21 Loc: 4N Room: [id number] Type: REG SDC Attending Dr: Yash Caban MD Ordering Provider: Yash Caban MD Date of Service: 09/19/21 XR/XR cervical spine 1V: . Copies to: Yash Caban MD PORTABLE CERVICAL SPINE - 1 image CLINICAL DATA: Intraoperative localization for cervical fusion and removal of prior hardware. COMPARISON: 08/12/2021 A single AP spot film of the cervical spine was obtained. There is one plate present on this image it is reported to be at the C5-6 level. Fluoroscopy time: 40 seconds Impression dictated by: Danna Holloway M.D.09/19/2021 3:58 PM Dictation Location: [place] [address] Transcribed By: [facility] 09/19/21 155 Dictated By: Danna Holloway MD 09/19/211555 Signed By: 09/19/211557 Normal [facility] SARS-CoV-2 (COVID-19) RNA WESTLEY+probe Ql (Unsp spec) Negative Normal Negative [facility] Comment on above: Order Comment: Healt hcare Worker?: N Result Comment: Testing for SARS-CoV-2 by RT-PCR This test was developed and its performance characteristics determined by [employer] and validated at the [facility]. This test has not been FDA cleared or approved. This test has been authorized by FDA under an Emergency Use Authorization (EUA). This test has been validated in accordance with the FDA's Guidance Document (Policy for Diagnostics Testing in Laboratories Certified to Perform High Complexity Testing under CLIA prior to Emergency Use Authorization for Coronavirus Disease-2019 during the Public Health Emergency) issued on January 05, 2020. This test is only authorized for the duration of time the declaration that circumstances exist justifying the authorization of the emergency use of in vitro diagnostic tests for detection of SARS-CoV-2 virus and/or diagnosis of COVID-19 infection under section 564(b)(1) of the Act, 21 U.S.C. 360bbb-3(b)(1), unless the authorization is terminated or revoked sooner. PERFORMED BY: [place] [address] PATHOLOGIST [employer] YUE CONWAY M.D. Performed By: #### C OVID 19 [facility] #### [address] Basic Metabolic Panelon 12-0 Calcium [Mass/Vol] 10.2 mg/dL Normal 8.2-10.2 [facility] Comment on above: Result Comment: PERF ORMED BY: [place] [address] PATHOLOGIST [employer] YUE CONWAY M.D. Performed By: #### B MP, CBC #### [facility] [address] [place] [address] [place] Chloride [Moles/Vol] 102 mmol/L Normal 95-114 [facility] Comment on above: Performed By: #### B MP, CBC #### [facility] [address] [place] [address] CO2 [Moles/Vol] 26.8 mmol/L Normal 22.0-30.0 [facility] Comment on above: Performed By: #### B MP, CBC #### [address] Creatinine [Mass/Vol] 0.89 mg/dL Normal 0.44-1.03 [facility] Comment on above: Performed By: #### B MP, CBC #### [address] Estimated GFR ( Cindy > 60 [facility] Comment on above: Result Comment: GFR estimated reference range: According to KDOQI guidelines, <60 ml/min/1.73m2 is sufficient to diagnose a patient with chronic kidney disease. Performed By: #### B MP, CBC #### [facility] [address] [place] [address] Estimated GFR (Non- Am > 60 Normal [facility] Comment on above: Performed By: #### B MP, CBC #### [facility] [address] [place] [address] [place] Glucose [Mass/Vol] 165 mg/dL High 70-100 [facility] Comment on above: Result Comment: [place] Glucose Reference Range is dependent on time and content of last meal. Glucose of more than 200 mg/dL in a nonstressed, ambulatory subject supports the diagnosis of Diabetes Mellitus. ADA recommended reference range Performed By: #### B MP, CBC #### [address] Potassium [Moles/Vol] 4.3 mmol/L Normal 3.5-5.1 [facility] Comment on above: Performed By: #### B MP, CBC #### [address] Sodium [Moles/Vol] 139 mmol/L Normal 136-146 [facility] Comment on above: Performed By: #### B MP, CBC #### [address] Urea nitrogen [Mass/Vol] 20 mg/dL Normal 9-23 [facility] Comment on above: Performed By: #### B MP, CBC #### [address] Complete Blood Count Auto Di ffon 09-06-2021 Basophils (Bld) [#/Vol] 0.1 10*3/uL Normal 0.0-0.2 [facility] Comment on above: Result Comment: PERF ORMED BY: [place] [address] PATHOLOGIST [employer] YUE CONWAY M.D. Performed By: #### B MP, CBC #### [address] Basophils/100 WBC (Bld) 0.9 % Normal . [facility] Comment on above: Performed By: #### B MP, CBC #### [place] [address] [place] Eosinophils (Bld) [#/Vol] 0.2 10*3/uL Normal 0.0-0.45 [facility] Comment on above: Performed By: #### B MP, CBC #### [address] Eosinophils/100 WBC (Bld) 2.1 % Normal . [facility] Comment on above: Performed By: #### B MP, CBC #### [address] Erythrocyte distribution width (RBC) [Ratio] 13.8 % Normal 11.9-15.3 [facility] Comment on above: Performed By: #### B MP, CBC #### [address] Hematocrit (Bld) [Volume fraction] 43.7 % Normal 34.0-46.4 [facility] Comment on above: Performed By: #### B MP, CBC #### [address] Hemoglobin (Bld) [Mass/Vol] 14.5 g/dL Normal 11.8-15.4 [facility] Comment on above: Performed By: #### B MP, CBC #### [address] Lymphocytes (Bld) [#/Vol] 2.7 10*3/uL Normal 1.00-4.8 [facility] Comment on above: Performed By: #### B MP, CBC #### [address] Lymphocytes/100 WBC (Bld) 31.0 % Normal . [facility] Comment on above: Performed By: #### B MP, CBC #### [address] MCH (RBC) [Entitic mass] 30.5 pg Normal 24.7-34.3 [facility] Comment on above: Performed By: #### B MP, CBC #### [address] MCV (RBC) [Entitic vol] 92.1 fL Normal 80-100 [facility] Comment on above: Performed By: #### B MP, CBC #### [address] Mean Corpuscular HGB Conc 33.1 g/dL Normal 32.0-35.0 [facility] Comment on above: Performed By: #### B MP, CBC #### [address] Monocytes (Bld) [#/Vol] 0.9 10*3/uL High 0.0-0.8 [facility] Comment on above: Performed By: #### B MP, CBC #### [facility] [address] Monocytes/100 WBC (Bld) 9.6 % Normal . [facility] Comment on above: Performed By: #### B MP, CBC #### [facility] [address] Neutrophils (Bld) [#/Vol] 5.0 10*3/uL Normal 1.8-7.7 [facility] Comment on above: Performed By: #### B MP, CBC #### [facility] [address] Neutrophils/100 WBC (Bld) 56.4 % Normal . [facility] Comment on above: Performed By: #### B MP, CBC #### [facility] [address] Nucleated RBC/100 WBC (Bld) [Ratio] 0.1 % Normal 0-0.5 [facility] Comment on above: Performed By: #### B MP, CBC #### [facility] [address] Platelet mean volume (Bld) [Entitic vol] 7.6 fL Normal 6.3-10.7 [facility] Comment on above: Performed By: #### B MP, CBC #### [facility] [address] [place] [address] [place] Platelets (Bld) [#/Vol] 308 10*3/uL Normal 150-450 [facility] Comment on above: Performed By: #### B MP, CBC #### [facility] [address] [place] [address] [place] RBC (Bld) [#/Vol] 4.74 10*6/uL Normal 3.60-5.00 [facility] Comment on above: Performed By: #### B MP, CBC #### [facility] [address] [place] [address] [place] WBC (Bld) [#/Vol] 8.9 10*3/uL Normal 4.5-11.0 [facility] Comment on above: Performed By: #### B MP, CBC #### [place] [id number] [facility] ECG 12 lead ECGon 09-06-2021 ECG 12 lead ECG [facility] [place] [address] Electrocardiograph Report Signed Patient: Dionne Kauffman MR#: [id number] 46 : 1955 Acct:[id number] Age/Sex: 65 / F ADM Date: 09/06/21 Loc: PS Room: Type: REG CLI Attending Dr: Yash Caban MD Ordering Provider: Yash Caban MD Date of Service: 09/06/2112/24/1503 ECG/ECG 12 lead ECG: surgery 09-19-2021 Copies to: Test Reason : Blood Pressure : / mmHG Vent. Rate : 098 BPM Atrial Rate : 098 BPM P-R Int : 156 ms QRS Dur : 080 ms QT Int : 352 ms P-R-T Axes : 049 -16 040 degrees QTc Int : 449 ms Normal sinus rhythm Low voltage QRS Septal infarct , age undetermined Abnormal ECG No previous ECGs available Confirmed by MARLEN GENAO DO, FACC ([id number]) on 09/06/2021 4:00:16 PM Referred By: KASSIDY CABAN Electronically Signed By:MARLEN GENAO DO, FACC Transcribed By: MUS Signed By Marlen Genao DO 09/06 1600 [facility] XR cerv spine AP/LAT/FLX/EXT on 08-12-2021 XR cerv spine AP/LAT/FLX/EXT [facility] [place] [address] XRay Report Signed Patient: Dionne Kauffman MR#: [id number] 46 : 1955 Acct:[id number] Age/Sex: 65 / F ADM Date: 08/12/21 Loc: XD Room: Type: REG CLI Attending Dr: Yash Caban MD Ordering Provider: Yash Caban MD Date of Service: 08/12/21 XR/XR cerv spine AP/LAT/FLX/EXT: Cervical spondylosis with radiculopathy Copies to: Yash Caban MD Cervical spine 08/12/2021. CLINICAL DATA: Neck pain with radiation to the left upper extremity. FINDINGS: 4 views of the cervical spine were obtained including lateral views in the neutral, flexion, and extension positions. There are postsurgical changes related to C4-C5 and C6-C7 anterior fusion. There is loss of the normal cervical lordosis which could be related to muscle spasm or patient positioning. Vertebral alignment is normal and remains intact with flexion and extension. Disc space narrowing and discovertebral degenerative changes are identified. Facet arthritis is also seen. No prevertebral soft tissue swelling is noted. XR/XR cerv spine AP/LAT/FLX/EXT IMPRESSION: Postsurgical changes. Normal vertebral alignment and no instability with flexion or extension. Disc space narrowing and degenerative changes. Impression dictated by: Milton Dye Jr., M.D.08/12/2021 2:35 PM Dictation Location: [place] [address] Transcribed By: [facility] 08/12/21 1435 Dictated By: Milton Dye Jr, MD 08/12/21 1433 Signed By: 08/12/21 1435 [facility] Vital Signs Date Time Vital Sign Value Performing Clinician Facility 12-18-2021 11:00-0400 Body height 165.1 cm Yash Caban Other [facility] Other 12-18-2021 11:00-0400 Body mass index (BMI) [Ratio] 36.27 kg/m2 Yash Caban Other [facility] [employer] Other 12-18-2021 11:00-0400 Body weight 98.88 kg Yash Caban Other [facility] [employer] Other 08-12-2021 14:00-0500 Body height 165.1 cm Yash Caban Other [facility] Other 08-12-2021 14:00-0500 Body mass index (BMI) [Ratio] 36.27 kg/m2 Yash Caban Other [facility] Other 08-12-2021 14:00-0500 Body weight 98.88 kg Yash Caban Other [facility] [employer] Other 08-12-2021 14:00-0500 Diastolic blood pressure 79 mm[Hg] Yash Caban Other [facility] Other 08-12-2021 14:00-0500 Systolic blood pressure 130 mm[Hg] Yash Caban Other [employer] Other Encounters Encounter Date Encounter Type Care Provider Facility Start: 11-23-2023 End: 11-23-2023 ambulatory JUDI JIMENEZ Not Available Start: 11-13-2023 Refill Judi Jimenez [employer]TER Work Phone: [facility] Comment on above: Gastroesophageal ref lux disease without esophagitis (Primary Dx) Start: 09-11-2023 End: 09-12-2023 ambulatory JUDI JIMENEZ [place] Start: 09-11-2023 End: 09-11-2023 Patient encounter procedure JUDI JIMENEZ [facility] Start: 06-03-2023 End: 07-18-2023 Pre-admission assessment JUDI JIMENEZ [facility] Start: 01-17-2023 End: 01-18-2023 ambulatory INFECTION PREVENTION SPECIALIST JUDI ANH Facility: Start: 12-27-2022 End: 12-28-2022 ambulatory ELEANOR JIMENEZ Facility: Start: 05-27-2022 Encounter for genera l adult medical examination without abnormal findings DR CELIA YI [facility] Start: 05-24-2022 End: 05-25-[address] CELIA YI Facility:[facility] Start: 05-24-2022 End: 05-25-2022 Encounter for general adult medical examination without abnormal findings DR CELIA YI Facility:[facility] Start: 04-20-[address] CELIA YI Facili ty:[facility] Start: 12-18-2021 End: 12-18-2021 ambulatory Yash Caban Other [employer] Other Start: 12-18-2021 Postop follow up vis it related to original px Yash Elsruth ann [facility] [place] Start: 10-02-2021 End: 10-02-2021 ambulatory Yash Lockemichelakaroline Other [facility] Other Start: 10-02-2021 Telephone encounter Yash Elsruth ann [facility] Neurosurgery Start: 09-23-2021 End: 09-23-2021 ambulatory Yash Caban Other [employer] Other Start: 09-23-2021 Telephone encounter Yash Parker [facility] Neurosurgery Start: 08-12-2021 End: 08-12-2021 ambulatory Yash Caban Other [employer] Other Start: 08-12-2021 Office outpatient vi sit 25 minutes Yash Caban [facility] Plan of Treatment Date Care Activity Detail Author Start: 11-23-2023 End: 11-23-2023 Patient encounter procedure 11/23/2023 6:00 PM EST Office Visit [facility] [address] [place] [id number] Judi Jimenez NP [address] [place] [address] [facility] Start: 06-05-2023 Influenza vaccination Influenza Vacc ine (#1) [facility] Start: 1996 Screening for malign ant neoplasm of breast Mammogram [facility] Start: 12-27-1975 Urine screening for protein Diabetes: Urine Protein Screening [facility] Start: 1966 Glaucoma screening Diabetes: R etinopathy Screening [facility] Start: 1962 Pneumococcal Vaccine : 65+ Years (1 - PCV) Pneumococcal Vaccine: 65+ Years (1 - PCV) [facility] Start: 1955 Hemoglobin A1c measurement Diabetes: Hemoglobin A1C [facility] Start: 1955 Medicare Annual Well ness (AWV) Medicare Annual Wellness (AWV) [facility] Start: 1955 Screening for malign ant neoplasm of colon [facility] Immunizations Immunization Date Immunization Notes Care Provider Shaka vance 07-09-2020 influenza virus vacc ine, unspecified formulation Judi Jimenez NP Work Phone: [facility] Healthcare Payers Date Payer Category Payer Medicare [employer] MEDICARE ADVANTAGE [employer] MEDICARE [id number] 2021-Present [address] [address] [place] [address] [id number] 1958 Medicare [id number] 1959 Self-pay [id number] 1955 Unknown [id number] 1955 Unknown [id number] 1955 Unknown [id number] 1955 Unknown [id number] 1955 Unknown [id number] 1955 Unknown [id number] 9 Social History Date Type Detail Facility Unknown if ever smoked [facility] [employer] Other Start: 10-30-2023 Sex Assigned At F [facility] Tobacco smoking status No Smokin g Status Entered [facility] Start: 10-30-2023 Tobacco smoking stat us ORIS Smokes tobacco daily [facility] History of tobacco use [facility]igarette [facility] Start: 10-30-2023 Cigarettes smoked current (pack per day) - Reported 0.5 [facility] Start: 1955 Sex Assigned At Not on file [facility] Evaluation note 12-18-2021 Note Date & Type Note Facility 12-18-2021 Evaluation note Encounter Date Diagnosis Assessment Notes Dec, Cervical spondylosis with radiculopathy (ICD-10 - M47.22) Our plan is to get an x-ray today get her involved in physical therapy. If she has continued improvement we will see her back in 3 months with repeat x-ray or earlier should she have persistent symptoms. Dec, Cervical spondylosis with myelopathy (ICD-10 - M47.12) [facility] Other Evaluation note 08-12-2021 Note Date & Type Note Facility 08-12-2021 Evaluation note Encounter Date Diagnosis Assessment Notes Aug, Cervical spondylosis with myelopathy (ICD-10 - M47.12) I spent 30 minutes face to face with the patient reviewing imaging and EMG and discussed management options with her extensively, along with risks and benefits of surgery.. I think she would be a candidate for an anterior cervical discectomy and fusion with a 0 profile plate. Hopefully we would not need to remove the plates other than potentially the lower one or atleast remove the screws. Patient appears to understand the risks and benefits of the operative procedure including but not limited to the risk of bleeding, infection, increased, recurrent, residual neurologic deficits such as numbness, tingling, pain, weakness, failed surgery and ultimate need for reoperation. At this time the patient wishes to proceed. [employer] Other Evaluation + Plan note Note Date & Type Note Facility Evaluation + Plan note No data available for this section [facility] Evaluation note Note Date & Type Note Facility Evaluation note No Information [facility] [employer] Other Evaluation note Note Date & Type Note Facility Evaluation note Diagnosis Gastroesophageal reflux disease without esophagitis- Primary Esophageal reflux documented in this encounter [facility] History general Narrative - Reported Note Date & Type Note Facility History general Narrative - Reported Type Medical History diabetes mallitus Medical History Hypertension Medical History migraine headache Surgical History RTKA Surgical History I&D RTKA Surgical History Neck Surgery Hospitalization History See Above [facility] [employer] Other History general Narrative - Reported Note Date & Type Note Facility History general Narrative - Reported [facility] [employer] Other Hospital Discharge instructions Note Date & Type Note Facility Hospital Discharge instructions No data available for this section [facility] Progress note Note Date & Type Note Facility Progress note No data available for this section [facility] Summary Purpose Family History No Family History Records FoundNo Family History Records Found No data available for this section No data available for this section No Family History Records FoundNo Family History Records Found Advance Directives No Advanced Directives Records FoundNo Advanced Directives Records FoundNo Advanced Directives Records FoundNo Advanced Directives Records Found Reason for Referral Reason Evaluate and Treat Diagnosis 1 Cervical spondylosis with radiculopathy (M47.22) Referral Organization [facility] urosurgery Referring Provider First Name Yash Referring Provider Last Name Nesha Referring Provider Specialty Neurosurger y Referred Organization [facility] Referred Address ,[place], [place],[address] Referred Provider Specialty Physical The rapist Referral Priority Routine Additional Source Comments INFORMATION SOURCE (unrecogn ized section and content) DATE CREATED AUTHOR 10/26/2021 [facility] DATE CREATED AUTHOR AUTHOR'S ORGANIZ ATION 03/13/2023 [facility] DATE CREATED AUTHOR AUTHOR'S ORGANIZ ATION 09/20/2023 [facility] DATE CREATED AUTHOR AUTHOR'S ORGANIZ ATION 11/24/2023 [facility] dical Specialists EPIC REASON FOR VISIT (unrecogniz ed section and content) Reason Comments Med Refill Patient Care team informatio n (unrecognized section and content) [employer] Relationship Specialty Start Date End Date Jamir Hare MD [address] [place] [address] PCP - General Family Medicine 10/30/23 Judi Jimenez NP [address] [place] [address] Nurse Practitioner Family Medicine 10/05/22 FOR RECORDS PERTAINING TO PATIENTS WHO ARE OR HAVE BEEN ENROLLED IN A CHEMICAL DEPENDENCY/SUBSTANCEABUSE PROGRAM, SOME INFORMATION MAY BE OMITTED. This clinical summary was aggregated from multiple sources. Caution should be exercised in using it in the provision of clinical care. This summary normalizes information from multiple sources, and as a consequence, information in this document may materially change the coding, format and clinical context of patient data. In addition, data may be omitted in some cases. CLINICAL DECISIONS SHOULD BE BASED ON THE PRIMARY CLINICAL RECORDS. [facility]. provides no warranty or guarantee of the accuracy or completeness of information in this document.
--- NOTE | 2023-12-02 07:54 | MM_ITS ---
Patient Name: VANI KAUFFMAN MR#: [id number] : 1955 Exam Date: 12/02/2023 Ordering Doctor: ELEANOR Jimenez CNP RADIOLOGY REPORT PROCEDURE: MM TOMOSYNTHESIS DIAGNOSTIC BI, 12/02/2023, 07:56 US BREAST LT LIMITED, 12/02/2023, 08:18 COMPARISON: MG MAMM SCREEN SISSY W CAD, 10/10/2020. MM TOMOSYNTHESIS SCREENING BI, 03/06/2023. INDICATIONS: Mass OF Left Breast N63.23 Calculator Name NCI Breast Cancer Risk Assessment Tool 5 Year Breast Cancer Risk 4.70% Lifetime Breast Cancer Risk 16.00% Personal Breast Cancer No Personal Ovarian Cancer No Treatments None Family Cancers Mother with breast cancer at age 65; Aunt-maternal with breast cancer at age ~71; Aunt-maternal with breast cancer at age ~74; Cousin-maternal with breast cancer at age ~50; Grandmother-maternal with uterus cancer at age 80; Cousin-paternal with colon cancer at age ~57. LOCATION: [facility] BREAST COMPOSITION: Scattered areas fibroglandular density. FINDINGS: DIAGNOSTIC CATEGORY 2--BENIGN FINDING. NO CHANGE FROM COMPARISON. Scattered benign-appearing calcifications are present. Scattered benign-appearing lymph nodes are present. RIGHT BREAST: No significant suspicious finding. LEFT BREAST: No significant suspicious finding. Prospect marker demarcates a palpable mass upper-outer quadrant, posterior breast. No mammographic or ultrasound abnormality. Further evaluation should be based on clinical and physical exam RECOMMENDATIONS: ROUTINE MAMMOGRAM AND CLINICAL EVALUATION IN 12 MONTHS. PLEASE NOTE: A NORMAL MAMMOGRAM DOES NOT EXCLUDE THE POSSIBILITY OF BREAST CANCER. A CLINICALLY SUSPICIOUS PALPABLE LUMP SHOULD BE BIOPSIED. Dictated by: Andre Walden MD on 12/02/2023 at 08:53 Approved by: Andre Walden MD on 12/02/2023 at 08:57
[2023-12-02 07:55] LABS: Basophils Absolute Auto 0.1 10^3/uL (0.0-0.1); Basophils Percent Auto 0.8 % (0.2-2.0); Eosinophils Absolute Auto 0.3 10^3/uL (0.0-0.7); Eosinophils Percent Auto 2.7 % (0.9-7.0); Hematocrit 46.4 % (36.0-48.0); Hemoglobin 14.3 g/dL (12.0-16.0); Immature Granulocytes Abs Auto 0.03 10^3/uL (0.00-0.03); Immature Granulocytes Pct Auto 0.3 % (0.0-0.5); Lymphocytes Absolute Auto 3.1 10^3/uL (1.2-3.8); Lymphocytes Percent Auto 30.8 % (20.5-60.0); Mean Corpuscular HGB Conc 30.8 g/dL (29.9-35.2); Mean Corpuscular Hemoglobin 29.5 pg (26.7-34.0); Mean Corpuscular Volume 95.7 fL (81.0-99.0); Mean Platelet Volume 9.3 fL (9.5-13.5); Monocytes Percent Auto 10.1 % (1.7-12.0); Neutrophils Absolute Auto 5.6 10^3/uL (1.4-6.5); Neutrophils Percent Auto 55.3 % (43.0-75.0); Platelet Count 321 10^3/uL (150-450); Red Blood Count 4.85 10^6/uL (4.20-5.40); Red Cell Distribution Width 13.5 % (11.0-15.0); White Blood Count 10.2 10^3/uL (4.0-11.0)
--- NOTE | 2023-12-02 08:02 | US_ITS ---
Patient Name: VANI KAUFFMAN MR#: [id number] : 1955 Exam Date: 12/02/2023 Ordering Doctor: ELEANOR Jimenez CNP RADIOLOGY REPORT PROCEDURE: MM TOMOSYNTHESIS DIAGNOSTIC BI, 12/02/2023, 07:56 US BREAST LT LIMITED, 12/02/2023, 08:18 COMPARISON: MG MAMM SCREEN SISSY W CAD, 10/10/2020. MM TOMOSYNTHESIS SCREENING BI, 03/06/2023. INDICATIONS: Mass OF Left Breast N63.23 Calculator Name NCI Breast Cancer Risk Assessment Tool 5 Year Breast Cancer Risk 4.70% Lifetime Breast Cancer Risk 16.00% Personal Breast Cancer No Personal Ovarian Cancer No Treatments None Family Cancers Mother with breast cancer at age 65; Aunt-maternal with breast cancer at age ~71; Aunt-maternal with breast cancer at age ~74; Cousin-maternal with breast cancer at age ~50; Grandmother-maternal with uterus cancer at age 80; Cousin-paternal with colon cancer at age ~57. LOCATION: [facility] BREAST COMPOSITION: Scattered areas fibroglandular density. FINDINGS: DIAGNOSTIC CATEGORY 2--BENIGN FINDING. NO CHANGE FROM COMPARISON. Scattered benign-appearing calcifications are present. Scattered benign-appearing lymph nodes are present. RIGHT BREAST: No significant suspicious finding. LEFT BREAST: No significant suspicious finding. Johnson marker demarcates a palpable mass upper-outer quadrant, posterior breast. No mammographic or ultrasound abnormality. Further evaluation should be based on clinical and physical exam RECOMMENDATIONS: ROUTINE MAMMOGRAM AND CLINICAL EVALUATION IN 12 MONTHS. PLEASE NOTE: A NORMAL MAMMOGRAM DOES NOT EXCLUDE THE POSSIBILITY OF BREAST CANCER. A CLINICALLY SUSPICIOUS PALPABLE LUMP SHOULD BE BIOPSIED. Dictated by: Andre Walden MD on 12/02/2023 at 08:53 Approved by: Andre Walden MD on 12/02/2023 at 08:57
[2023-12-02 08:34] LABS: Alanine Aminotransferase 36 U/L (14-59); Albumin Level 3.5 g/dL (3.4-5.0); Alkaline Phosphatase 87 U/L (46-116); Anion Gap 12.9; Aspartate Amino Transferase 19 U/L (15-37); BUN Creatinine Ratio 25.3; Bilirubin Total 0.4 mg/dL (0.2-1.0); Calcium 8.9 mg/dL (8.5-10.1); Carbon Dioxide 30.6 mmol/L (21.0-32.0); Chloride 103 mmol/L (98-107); Chol HDL Ratio 2.1; Cholesterol 120 mg/dL (<=200); Estimated GFR (African America >60 (>=60); Estimated GFR (Non-African Ame >60 (>=60); Globulin 3.6 g/dL; Glucose 115 mg/dL (74-106); HDL Cholesterol 58 mg/dL (40-60); LDL Cholesterol Calculated 44.6 mg/dL; Potassium 4.5 mmol/L (3.5-5.1); Sodium 142 mmol/L (136-145); Total Protein 7.1 g/dL (6.4-8.2); Triglycerides 87 mg/dL (<=150); VLDL CHOLESTEROL 17.4 mg/dL
[2023-12-02 09:35] LABS: Bilirubin Urine NEGATIVE (NEGATIVE); Blood Urine NEGATIVE (NEGATIVE); Clarity Urine CLEAR (CLEAR); Color Urine YELLOW (YELLOW); Glucose Urine UA >=1000 mg/dL (NEGATIVE); Ketones Urine NEGATIVE (NEGATIVE); Leukocyte Esterase Urine NEGATIVE (NEGATIVE); Nitrite Urine NEGATIVE (NEGATIVE); Protein Urine NEGATIVE (NEG/TRACE); Urobilinogen Urine 0.2 EU/dL (0.2-1.0)
[2023-12-02 09:36] LABS: Urine Microscopic Indicated NO
[2023-12-02 09:46] LABS: Estimated Average Glucose 148 mg/dL; Glycohemoglobin A1C 6.8 % (4.5-6.2)
[2023-12-02 09:52] LABS: Creatinine Urine Random 89.92 mg/dL (20.00-300.00); Microalbumin Urine Random <1.3 mg/dL (<=30.0)
== END 2023-12-02 07:32 | disposition home or self-care (01) ==
LOC: MAMMO 07:31
PROVIDERS: PCP Nurse Practitioner; Visit Provider Nurse Practitioner
DX: N63.23 Unspecified lump in the left breast, lower outer quadrant (principal); E11.9 Type 2 diabetes mellitus without complications; Z79.4 Long term (current) use of insulin; E55.9 Vitamin D deficiency, unspecified; I10 Essential (primary) hypertension; E78.2 Mixed hyperlipidemia; Z80.3 Family history of malignant neoplasm of breast; Z80.0 Family history of malignant neoplasm of digestive organs; Z80.8 Family history of malignant neoplasm of other organs or systems
CPT/HCPCS: 36415; 76642; 77066; 80053; 80061; 81003; 82043; 82306; 82570; 83036; 85025; G0279

== ENCOUNTER 2024-07-15 15:35 | Outpatient (OUT) | payer OTHER, SELFPAY ==
--- NOTE | 2024-07-15 | XR_ITS ---
The [place] [id number] Patient Name: VANI KAUFFMAN MRN: [id number] date: 1955 Sex: F Assigned Patient Location: [facility] Current Patient Location: Accession/Order Number: [id number] Exam Date: 07/15/2024 16:00 Report Date: 07/17/2024 08:57 At the request of: JASMINE KAMARA Procedure: XR knee RT 3V PROCEDURE: XR knee RT 3V HISTORY: Chronic pain of right knee, M25.561, G89.29 . COMPARISON: None. 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 No appreciable hardware fracture loosening. No acute bone fracture or dislocation. SOFT TISSUES:No visible soft tissue swelling. EFFUSION:None visible. OTHER: Negative. XR/XR knee RT 3V IMPRESSION: 1. Right knee replacement without evidence of hardware failure or suspicious abnormality. Electronically authenticated by: LARISSA MARTIN Date: 07/17/2024 08:57
--- OUTSIDE RECORDS SUMMARY | 2024-07-15 15:39 | XMS_ITS | CCD ---
Author Organization [facility] Care Team Providers Care Energy Trader Name Role Phone Yash Caban Unavailable AICHHOLZ, ANIMAL HOSPITAL OFFICE SUPERVISOR JUDI Admitting Unavailable AICHHOLZ, ANIMAL HOSPITAL OFFICE SUPERVISOR JUDI Primary Care Unavailable AICHHOLZ, ANIMAL HOSPITAL OFFICE SUPERVISOR JUDI Consulting Unavailable AICHHOLZ, ANIMAL HOSPITAL OFFICE SUPERVISOR JUDI Attending Unavailable AICHHOLZ, ANIMAL HOSPITAL OFFICE SUPERVISOR JUDI Admitting Unavailable AICHHOLZ, ANIMAL HOSPITAL OFFICE SUPERVISOR JUDI Primary Care Unavailable AICHHOLZ, ANIMAL HOSPITAL OFFICE SUPERVISOR JUDI Consulting Unavailable AICHHOLZ, ANIMAL HOSPITAL OFFICE SUPERVISOR JUDI Attending Unavailable HOUSE, DR YANG Admitting Unavailable HOUSE, DR YANG Primary Care Unavailable [place], DR YANG Consulting Unavailable HOUSE, DR YANG Attending Unavailable ROBCAESAR JOHANSEN Consulting Unavailable HOUSE, DR YANG Admitting Unavailable HOUSE, DR YANG Primary Care Unavailable HOUSE, DR YANG Attending Unavailable AICHHOLZ, JUDI J Primary Care Physician AICHHOLZ, JUDI J Referring Unavailable AICHHOLZ, JUDI J Attending Unavailable AICHHOLZ, JUDI J Admitting Unavailable Aichholz INSURANCE ASSOCIATE, Judi Unavailable Jamri Hare MD Primary Care Provider AICHHOLZ, JUDI Attending Unavailable AICHHOLZ, JUDI Attending Unavailable AICHHOLZ, JUDI Attending Unavailable AICHHOLZ, JUDI Attending Unavailable Allergies Allergy Classification Reported Allergen(s) Allergy Type Date of Onset Reaction(s) Facility (4 sources) penicillAMINE Drug Allergy Unknown [facility] Other (4 sources) sulfaSALAzine Drug Allergy Unknown [facility] Other (1 source) Penicillins Drug allergy (disorder) 4 [facility] (1 source) Sulfonamides (Antibiotic) Drug allergy (disorder) 4 [facility] (1 source) Penicillins Propensity to adverse reactions 3 [facility] (1 source) Sulfonamides (Antibiotic) Propensity to adverse reactions 3 [facility] Medications Current Medications Medication Drug Class(es) Dates Sig (Normalized) Sig (Original) [id number] 200 actuat albuterol 0.09 mg/actuat metered dose [...] every week ergocalciferol (Vitamin D-2) 1.25 MG (83667 UT) capsule Take 1.25 mg by mouth [...] oral tablet (4 sources) Angiotensin 2 Receptor Ambel Losartan Potassium 1 00 MG Oral for [...] for Treatmenton Consent for Treatment [id number] 31 [id number] #1.00TIFF Normal [facility] EMG Electromyographyon 09-11 EMG Electromyography [id number] 1#1.00TIFF Normal [facility] Neurology Forms- [employer] Neurology Forms- Text [id number] 12 [id number] 0#1.00TIFF Normal [facility] Physician Orderon 06-03-2023 Physician Order [id number] #1.00CD:127 Normal [facility] LIVER PROFILEon 01-17-2023 Albumin [Mass/Vol] 3.4 g/dL Normal 3.4-5.0 [facility] Comment on above: Performed By: #### C BC #### [facility] [address] [place] [address] Dr. Willam Novoa Albumin/Globulin [Mass ratio] 0.9 {ratio} Normal [facility] Comment on above: Performed By: #### C BC #### [facility] [address] [place] [address] Dr. Willam Novoa ALP [Catalytic activity/Vol] 116 U/L Normal 46-116 [facility] Comment on above: Performed By: #### C BC #### [facility] [address] [place] [address] Dr. Willam Novoa ALT [Catalytic activity/Vol] 35 U/L Normal 14-59 [facility] Comment on above: Performed By: #### C BC #### [facility] [address] [place] [address] Dr. Willam Novoa AST [Catalytic activity/Vol] 14 U/L Critically low 15-37 [facility] Comment on above: Performed By: #### C BC #### [facility] [address] [place] [address] Dr. Willam Novoa BILI, CONJUGATED 0.1 mg/dL Normal 0.0-0.2 [facility] Comment on above: Performed By: #### C BC #### [facility] [address] [place] [address] Dr. Willam Novoa Bilirubin [Mass/Vol] 0.3 mg/dL Normal 0.2-1.0 [facility] Comment on above: Performed By: #### C BC #### [facility] [address] [place] [address] Dr. Willam Novoa Globulin (S) [Mass/Vol] 4.0 g/dL Normal [facility] Comment on above: Performed By: #### C BC #### [facility] [address] [place] [address] Dr. Willam Novoa Protein [Mass/Vol] 7.4 g/dL Normal 6.4-8.2 [facility] Comment on above: Performed By: #### C BC #### [facility] [address] [place] [address] Dr. Willam Novoa CBC AUTO DIFFon 12-27-2022 BASO # 0.1 103/ul Normal 0.0-0.1 [facility] Comment on above: Performed By: #### C BC #### [facility] [address] [place] [address] Dr. Willam Novoa Basophils/100 WBC (Bld) 1.0 % Normal 0.2-2.[address] [facility] Comment on above: Performed By: #### C BC #### [facility] [address] [place] [address] Dr. Willam Novoa EO # 0.3 103/ul Normal 0.0-0.7 [facility] Comment on above: Performed By: #### C BC #### [facility] [address] [place] [address] Dr. Willam Novoa Eosinophils/100 WBC (Bld) 3.6 % Normal 0.9-7.0 [facility] Comment on above: Performed By: #### C BC #### [facility] [address] [place] [address] Dr. Willam Novoa Erythrocyte distribution width (RBC) [Ratio] 13.2 % Normal 11.0-15.0 [facility] Comment on above: Performed By: #### C BC #### [facility] [address] [place] [address] Dr. Willam Novoa Hematocrit (Bld) [Volume fraction] 45.4 % Normal 36.0-48.0 [facility] Comment on above: Performed By: #### C BC #### [facility] [address] [place] [address] Dr. Willam Novoa Hemoglobin (Bld) [Mass/Vol] 14.4 g/dL Normal 12.0-16.0 [facility] Comment on above: Performed By: #### C BC #### [facility] [address] [place] [address] Dr. Willam Novoa IG # 0.03 10e3/ul Normal 0.00-0.03 [facility] Comment on above: Performed By: #### C BC #### [facility] [address] [place] [address] Dr. Willam Novoa IG % 0.4 % Normal 0.0-0.5 [facility] Comment on above: Performed By: #### C BC #### [facility] [address] [place] [address] Dr. Willam Novoa LYMPH # 2.5 103/ul Normal 1.2-3.8 [facility] Comment on above: Performed By: #### C BC #### [facility] [address] [place] [address] Dr. Willam Novoa Lymphocytes/100 WBC (Bld) 29.9 % Normal 20.5-60.0 [facility] Comment on above: Performed By: #### C BC #### [facility] [address] [place] [address] Dr. Willam Novoa MANUAL DIFF REQ NO Normal [facility] Comment on above: Performed By: #### C BC #### [facility] [address] [place] [address] Dr. Willam Novoa MCH (RBC) [Entitic mass] 29.9 pg Normal 26.7-34.0 [facility] Comment on above: Performed By: #### C BC #### [facility] [address] [place] [address] Dr. Willam Novoa MCHC (RBC) [Mass/Vol] 31.7 g/dL Normal 29.9-35.2 [facility] Comment on above: Performed By: #### C BC #### [facility] [address] [place] [address] Dr. Willam Novoa MCV (RBC) [Entitic vol] 94.4 fL Normal 81.0-99.[address] [facility] Comment on above: Performed By: #### C BC #### [facility] [address] [place] [address] Dr. Willam Novoa MONO # 0.8 103/ul Normal 0.3-0.8 [facility] Comment on above: Performed By: #### C BC #### [facility] [address] [place] [address] Dr. Willam Novoa Monocytes/100 WBC (Bld) 9.2 % Normal 1.7-12.[address] [facility] Comment on above: Performed By: #### C BC #### [facility] [address] [place] [address] Dr. Willam Novoa NEUT # 4.7 103/ul Normal 1.4-6.5 [facility] Comment on above: Performed By: #### C BC #### [facility] [address] [place] [address] Dr. Willam Novoa Neutrophils/100 WBC (Bld) 55.9 % Normal 43.0-75.0 [facility] Comment on above: Performed By: #### C BC #### [facility] [address] [place] [address] Dr. Willam Novoa Platelet mean volume (Bld) [Entitic vol] 9.4 fL Critically low 9.5-13.5 [facility] Comment on above: Performed By: #### C BC #### [facility] [address] [place] [address] Dr. Willam Novoa PLT 311 103/ul Normal 150-450 [facility] Comment on above: Performed By: #### C BC #### [facility] [address] [place] [address] Dr. Willam Novoa RBC 4.81 106/ul Normal 4.20-5.40 [facility] Comment on above: Performed By: #### C BC #### [facility] [address] [place] [address] Dr. Willam Novoa WBC 8.4 103/ul Normal 4.0-11.0 [facility] Comment on above: Performed By: #### C BC #### [facility] [address] [place] [address] Dr. Willam Novoa FREE T4on 12-27-2022 Free T4 [Mass/Vol] 1.13 ng/dL Normal 0.76-1.46 [facility] Comment on above: Performed By: #### C BC #### [facility] [address] [place] [address] Dr. Willam Novoa GLYCOHEMOGLOBIN A1Con 2022 ADA RECOMMENDATION SEE BELOW Normal [facility] Comment on above: Result Comment: ADA RECOMMENDED LIMIT 4.0 - 6.0 ADA THERAPEUTIC TARGET < 7.0 ACTION SUGGESTED > 7.0 Performed By: #### C BC #### [facility] [address] [place] [address] Dr. Willam Novoa Glucose [Mass/Vol] 258 mg/dL Normal [facility] Comment on above: Performed By: #### C BC #### [facility] [address] [place] [address] Dr. Willam Novoa HbA1c (Bld) [Mass fraction] 10.6 % Critically high 4.5-6.2 [facility] Comment on above: Performed By: #### C BC #### [facility] [address] [address] [address] Willam Novoa LIPID PROFILEon 12-27-2022 CHOL-HDL RATIO NORM SEE BELOW Normal [facility] Comment on above: Result Comment: 3.3 - 4.4 LOW RISK 4.4 - 7.1 AVERAGE RISK 7.1 - 11.0 MODERATE RISK >11.0 HIGH RISK Performed By: #### C BC #### [facility] [address] [address] [address] Willam Novoa Cholesterol [Mass/Vol] 158 mg/dL Normal <=200 [facility] Comment on above: Performed By: #### C BC #### [facility] [address] [address] [address] Willam Novoa Cholesterol in HDL [Mass/Vol] 51 mg/dL Normal 40-60 [facility] Comment on above: Performed By: #### C BC #### [facility] [address] [address] [address] Willam Novoa Cholesterol in LDL [Mass/Vol] 81.8 mg/dL Normal [facility] Comment on above: Performed By: #### C BC #### [facility] [address] [address] [address] Willam Novoa Cholesterol.total/Xiomy sterol in HDL [Mass ratio] 3.1 {ratio} Normal [facility] Comment on above: Performed By: #### C BC #### [facility] [address] [address] [address] Willam Novoa HDL NORMAL > or = 60 mg/dl - LOW CARDIOVASCULAR RISK <40 mg/dl - HIGH CARDIOVASCULAR RISK Normal [facility] Comment on above: Performed By: #### C BC #### [facility] [address] [place], [place] [address] Dr. Willam Novoa LDL CALC NORMAL SEE BELOW Normal [facility] Comment on above: Result Comment: <100 mg/dl OPTIMAL 100 - 129 mg/dl NEAR OR ABOVE OPTIMAL 130 - 159 mg/dl BORDERLINE HIGH 160 - 189 mg/dl HIGH >190 mg/dl VERY HIGH Performed By: #### C BC #### [facility] [address] [address] [address] Willam Novoa Triglyceride [Mass/Vol] 126 mg/dL Normal <=150 [facility] Comment on above: Performed By: #### C BC #### [facility] [address] [place] [address] Dr. Willam Novoa VLDL CALC 25.2 mg/dL Normal [facility] Comment on above: Performed By: #### C BC #### [facility] [address] [place] [address] Dr. Willam Novoa MICROALBUMIN, RAND URon 12-04 mALB 1.3 mg/L Normal <=30.0 [facility] Comment on above: Performed By: #### M ALBR #### [facility] [address] [place] [address] Dr. Willam Novoa PROF 14(COMP METB)on 023 Albumin [Mass/Vol] 3.9 g/dL Normal 3.4-5.0 [facility] Comment on above: Performed By: #### C MP, LIPID, TSH #### [facility] [address] [place] [address] Dr. Willam Novoa Albumin/Globulin [Mass ratio] 1.0 {ratio} Normal [facility] Comment on above: Performed By: #### C MP, LIPID, TSH #### [facility] [address] [place] [address] Dr. Willam Novoa ALP [Catalytic activity/Vol] 161 U/L Critically high 46-116 [facility] Comment on above: Performed By: #### C MP, LIPID, TSH #### [facility] [address] [place] [address] Dr. Willam Novoa ALT [Catalytic activity/Vol] 29 U/L Normal 14-59 [facility] Comment on above: Performed By: #### C MP, LIPID, TSH #### [facility] [address] [place] [address] Dr. Willam Novoa Anion gap [Moles/Vol] 10.7 mmol/L Normal [facility] Comment on above: Performed By: #### C MP, LIPID, TSH #### [facility] [address] [address] [address] Willam Novoa AST [Catalytic activity/Vol] 10 U/L Critically low 15-37 [facility] Comment on above: Performed By: #### C MP, LIPID, TSH #### [facility] [address] [place] [address] Dr. Willam Novoa Bilirubin [Mass/Vol] 0.3 mg/dL Normal 0.2-1.0 [facility] Comment on above: Performed By: #### C MP, LIPID, TSH #### [facility] [address] [place] [address] Dr. Willam Novoa Calcium [Mass/Vol] 9.4 mg/dL Normal 8.5-10.1 [facility] Comment on above: Performed By: #### C MP, LIPID, TSH #### [facility] [address] [place] [address] Dr. Willam Novoa Chloride [Moles/Vol] 103 mmol/L Normal 98-107 [facility] Comment on above: Performed By: #### C MP, LIPID, TSH #### [facility] [address] [place] [address] Dr. Willam Novoa CO2 [Moles/Vol] 28.3 mmol/L Normal 21.0-32.0 [facility] Comment on above: Performed By: #### C MP, LIPID, TSH #### [facility] [address] [place] [address] Dr. Willam Novoa Creatinine [Mass/Vol] 0.72 mg/dL Normal 0.55-1.02 [facility] Comment on above: Performed By: #### C MP, LIPID, TSH #### [facility] [address] [place] [address] Dr. Willam Novoa EGFR-AF PUERTO RICAN >60 Normal >=60 [facility] Comment on above: Performed By: #### C MP, LIPID, TSH #### [facility] [address] [place] [address] Dr. Willam Novoa EGFR-NON AF PUERTO RICAN >60 Normal >=60 [facility] Comment on above: Performed By: #### C MP, LIPID, TSH #### [facility] [address] [address] [address] Willam Novoa Globulin (S) [Mass/Vol] 3.8 g/dL Normal [facility] Comment on above: Performed By: #### C MP, LIPID, TSH #### [facility] [address] [address] [address] Willam Novoa Glucose [Mass/Vol] 287 mg/dL Critically high 74-[address] [facility] Comment on above: Performed By: #### C MP, LIPID, TSH #### [facility] [address] [address] [address] Willam Novoa Potassium [Moles/Vol] 4.0 mmol/L Normal 3.5-5.1 [facility] Comment on above: Performed By: #### C MP, LIPID, TSH #### [facility] [address] [place] [address] Dr. Willam Novoa Protein [Mass/Vol] 7.7 g/dL Normal 6.4-8.2 [facility] Comment on above: Performed By: #### C MP, LIPID, TSH #### [facility] [address] [address] [address] Willam Novoa Sodium [Moles/Vol] 138 mmol/L Normal 136-145 [facility] Comment on above: Performed By: #### C MP, LIPID, TSH #### [facility] [address] [address] [address] Willam Novoa Urea nitrogen [Mass/Vol] 13.0 mg/dL Normal 7.0-18.0 [facility] Comment on above: Performed By: #### C MP, LIPID, TSH #### [facility] [address] [address] [address] Willam Novoa Urea nitrogen/Creatinine [Mass ratio] 18.1 mg/mg Normal [facility] Comment on above: Performed By: #### C MP, LIPID, TSH #### [facility] [address] [address] [address] Willam Novoa TSHon 12-27-2022 TSH 1.361 uIU/mL Normal 0.358-3.740 [facility] Comment on above: Performed By: #### C MP, LIPID, TSH #### [facility] [address] [place] [address] Dr. Willam Novoa UA RANDOM W/MICROSCOPICon BACTERIA NONE SEEN Normal NONE SEEN [facility] Comment on above: Performed By: #### U AMIC #### [facility] [address] [place] [address] Dr. Willam Novoa Bilirubin Ql (U) Negative Normal NEGATIVE [facility] Comment on above: Performed By: #### U AMIC #### [facility] [address] [place] [address] Dr. Willam Novoa CAST NONE SEEN Normal NONE SEEN [facility] Comment on above: Performed By: #### U AMIC #### [facility] [address] [place] [address] Dr. Willam Novoa Clarity (U) CLEAR Normal CLEAR [facility] Comment on above: Performed By: #### U AMIC #### [facility] [address] [place] [address] Dr. Willam Novoa Color (U) LT. YELLOW Normal YELLOW [facility] Comment on above: Performed By: #### U AMIC #### [facility] [address] [place] [address] Dr. Willam Novoa Crystals LM Nom (Urine sed) NONE SEEN Normal NONE SEEN [facility] Comment on above: Performed By: #### U AMIC #### [facility] [address] [place] [address] Dr. Willam Novoa Epithelial cells LM Ql (Urine sed) RARE Normal NONE SEEN /RARE [facility] Comment on above: Performed By: #### U AMIC #### [facility] [address] [place] [address] Dr. Willam Novoa Glucose Ql (U) >1000 Abnormal NEGATIVE [facility] Comment on above: Performed By: #### U AMIC #### [facility] [address] [place] [address] Dr. Willam Novoa Hemoglobin Ql (U) Negative Normal NEGATIVE [facility] Comment on above: Performed By: #### U AMIC #### [facility] [address] [address] [address] Willam Novoa Ketones Ql (U) Negative Normal NEGATIVE [facility] Comment on above: Performed By: #### U AMIC #### [facility] [address] [address] [address] Willam Novoa LEUKOCYTES Negative Normal NEGATIVE [facility] Comment on above: Performed By: #### U AMIC #### [facility] [address] [address] [address] Willam Novoa MUCOUS NONE SEEN Normal NONE SEEN [facility] Comment on above: Performed By: #### U AMIC #### [facility] [address] [address] [address] Willam Novoa Nitrite Ql (U) Negative Normal NEGATIVE [facility] Comment on above: Performed By: #### U AMIC #### [facility] [address] [address] [address] Willam Novoa pH (U) 6.0 [pH] Normal 5-9 [facility] Comment on above: Performed By: #### U AMIC #### [facility] [address] [address] [address] Willam Novoa RBC NONE SEEN Abnormal 0-2 [facility] Comment on above: Performed By: #### U AMIC #### [facility] [address] [address] [address] Willam Novoa SPEC GRAVITY <=1.005 Abnormal 1.005-<=1.025 [facility] Comment on above: Performed By: #### U AMIC #### [facility] [address] [address] [address] Willam Novoa UA PROTEIN Negative Normal NEGATIVE/ TRACE [facility] Comment on above: Performed By: #### U AMIC #### [facility] [address] [place] [address] Dr. Willam Novoa Urobilinogen Qn (U) 0.2 {Kalpesh'U}/dL Normal 0.2 - 1. 0 [facility] Comment on above: Performed By: #### U AMIC #### [facility] [address] [place] [address] Dr. Willam Novoa WBC NONE SEEN Normal NONE SEEN [facility] Comment on above: Performed By: #### U AMIC #### [facility] [address] [place] [address] Dr. Willam Novoa MICROALBUMIN URINEon 022 Albumin, Urine 5.9 ug/mL Normal Not Estab. [facility] Comment on above: Performed By: #### M ALBLC #### [facility] [address] [place] [address] Dr. Willam Novoa T4 LABCORPon 05-25-2022 T4 [Mass/Vol] 8.3 ug/dL Normal 4.5-12.0 [facility] Comment on above: Performed By: #### C BC #### [facility] [address] [place] [address] Dr. Willam Novoa CBC AUTO DIFFon 05-24-2022 BASO # 0.1 103/ul Normal 0.0-0.1 [facility] Comment on above: Performed By: #### C BC #### [facility] [address] [place] [address] Dr. Willam Novoa Basophils/100 WBC (Bld) 0.9 % Normal 0.2-2.0 [facility] Comment on above: Performed By: #### C BC #### [facility] [address] [place] [address] Dr. Willam Novoa EO # 0.3 103/ul Normal 0.0-0.7 [facility] Comment on above: Performed By: #### C BC #### [facility] [address] [place] [address] Dr. Willam Novoa Eosinophils/100 WBC (Bld) 3.5 % Normal 0.9-7.0 [facility] Comment on above: Performed By: #### C BC #### [facility] [address] [place] [address] Dr. Willam Novoa Erythrocyte distribution width (RBC) [Ratio] 13.2 % Normal 11.0-15.0 [facility] Comment on above: Performed By: #### C BC #### [facility] [address] [place] [address] Dr. Willam Novoa Hematocrit (Bld) [Volume fraction] 45.7 % Normal 36.0-48.0 [facility] Comment on above: Performed By: #### C BC #### [facility] [address] [place] [address] Dr. Willam Novoa Hemoglobin (Bld) [Mass/Vol] 14.3 g/dL Normal 12.0-16.0 [facility] Comment on above: Performed By: #### C BC #### [facility] [address] [place] [address] Dr. Willam Novoa IG # 0.03 10e3/ul Normal 0.00-0.03 [facility] Comment on above: Performed By: #### C BC #### [facility] [address] [place] [address] Dr. Willam Novoa IG % 0.3 % Normal 0.0-0.5 [facility] Comment on above: Performed By: #### C BC #### [facility] [address] [place] [address] Dr. Willam Novoa LYMPH # 3.5 103/ul Normal 1.2-3.8 [facility] Comment on above: Performed By: #### C BC #### [facility] [address] [place] [address] Dr. Willam Novoa Lymphocytes/100 WBC (Bld) 38.7 % Normal 20.5-60.0 [facility] Comment on above: Performed By: #### C BC #### [facility] [address] [place] [address] Dr. Willam Novoa MANUAL DIFF REQ NO Normal [facility] Comment on above: Performed By: #### C BC #### [facility] [address] [place] [address] Dr. Willam Novoa MCH (RBC) [Entitic mass] 29.8 pg Normal 26.7-34.0 [facility] Comment on above: Performed By: #### C BC #### [facility] [address] [address] [address] Willam Novoa MCHC (RBC) [Mass/Vol] 31.3 g/dL Normal 29.9-35.2 [facility] Comment on above: Performed By: #### C BC #### [facility] [address] [address] [address] Willam Novoa MCV (RBC) [Entitic vol] 95.2 fL Normal 81.0-99.[address] [facility] Comment on above: Performed By: #### C BC #### [facility] [address] [address] [address] Willam Novoa MONO # 0.8 103/ul Normal 0.3-0.8 [facility] Comment on above: Performed By: #### C BC #### [facility] [address] [address] [address] Willam Novoa Monocytes/100 WBC (Bld) 9.3 % Normal 1.7-12.[address] [facility] Comment on above: Performed By: #### C BC #### [facility] [address] [place] [address] Dr. Willam Novoa NEUT # 4.2 103/ul Normal 1.4-6.5 [facility] Comment on above: Performed By: #### C BC #### [facility] [address] [address] [address] Willam Novoa Neutrophils/100 WBC (Bld) 47.3 % Normal 43.0-75.0 [facility] Comment on above: Performed By: #### C BC #### [facility] [address] [address] [address] Willam Novoa Platelet mean volume (Bld) [Entitic vol] 9.3 fL Critically low 9.5-13.5 [facility] Comment on above: Performed By: #### C BC #### [facility] [address] [address] [address] Willam Novoa PLT 295 103/ul Normal 150-450 [facility] Comment on above: Performed By: #### C BC #### [facility] [address] [place] [address] Dr. Willam Novoa RBC 4.80 106/ul Normal 4.20-5.40 [facility] Comment on above: Performed By: #### C BC #### [facility] [address] [place] [address] Dr. Willam Novoa WBC 8.9 103/ul Normal 4.0-11.0 [facility] Comment on above: Performed By: #### C BC #### [facility] [address] [place] [address] Dr. Willam Novoa GLYCOHEMOGLOBIN A1Con 2021 ADA RECOMMENDATION SEE BELOW Normal [facility] Comment on above: Result Comment: ADA RECOMMENDED LIMIT 4.0 - 6.0 ADA THERAPEUTIC TARGET < 7.0 ACTION SUGGESTED > 7.0 Performed By: #### A 1C #### [facility] [address] [place] [address] Dr. Willam Novoa Glucose [Mass/Vol] 200 mg/dL Normal [facility] Comment on above: Performed By: #### A 1C #### [facility] [address] [place] [address] Dr. Willam Novoa HbA1c (Bld) [Mass fraction] 8.6 % Critically high 4.5-6.2 [facility] Comment on above: Performed By: #### A 1C #### [facility] [address] [place] [address] Dr. Willam Novoa PROF 14(COMP METB)on 022 Albumin [Mass/Vol] 4.1 g/dL Normal 3.4-5.0 [facility] Comment on above: Performed By: #### T SAVANNAH, CMP #### [facility] [address] [place] [address] Dr. Willam Novoa Albumin/Globulin [Mass ratio] 1.2 {ratio} Normal [facility] Comment on above: Performed By: #### T SAAVNNAH, CMP #### [facility] [address] [place] [address] Dr. Willam Novoa ALP [Catalytic activity/Vol] 121 U/L Critically high 46-116 [facility] Comment on above: Performed By: #### T SH, CMP #### [facility] [address] [place] [address] Dr. Willam Novoa ALT [Catalytic activity/Vol] 31 U/L Normal 14-59 [facility] Comment on above: Performed By: #### T SH, CMP #### [facility] [address] [place] [address] Dr. Willam Novoa Anion gap [Moles/Vol] 15.9 mmol/L Normal [facility] Comment on above: Performed By: #### T SH, CMP #### [facility] [address] [place] [address] Dr. Willam Novoa AST [Catalytic activity/Vol] 13 U/L Critically low 15-37 [facility] Comment on above: Performed By: #### T SAVANNAH, CMP #### [facility] [address] [place] [address] Dr. Willam Novoa Bilirubin [Mass/Vol] 0.4 mg/dL Normal 0.2-1.0 [facility] Comment on above: Performed By: #### T SH, CMP #### [facility] [address] [place] [address] Dr. Willam Novoa Calcium [Mass/Vol] 9.3 mg/dL Normal 8.5-10.1 [facility] Comment on above: Performed By: #### T SAVANNAH, CMP #### [facility] [address] [place] [address] Dr. Willam Novoa Chloride [Moles/Vol] 103 mmol/L Normal 98-107 [facility] Comment on above: Performed By: #### T SH, CMP #### [facility] [address] [place] [address] Dr. Willam Novoa CO2 [Moles/Vol] 27.1 mmol/L Normal 21.0-32.0 [facility] Comment on above: Performed By: #### T SH, CMP #### [facility] [address] [place] [address] Dr. Willam Novoa Creatinine [Mass/Vol] 0.74 mg/dL Normal 0.55-1.02 [facility] Comment on above: Performed By: #### T SH, CMP #### [facility] [address] [place] [address] Dr. Willam Novoa EGFR-AF PUERTO RICAN >60 Normal >=60 [facility] Comment on above: Performed By: #### T SH, CMP #### [facility] [address] [address] [address] Willam Novoa EGFR-NON AF PUERTO RICAN >60 Normal >=60 [facility] Comment on above: Performed By: #### T SH, CMP #### [facility] [address] [place] [address] Dr. Willam Novoa Globulin (S) [Mass/Vol] 3.3 g/dL Normal [facility] Comment on above: Performed By: #### T SH, CMP #### [facility] [address] [place] [address] Dr. Willam Novoa Glucose [Mass/Vol] 194 mg/dL Critically high 74-[address] [facility] Comment on above: Performed By: #### T SH, CMP #### [facility] [address] [place] [address] Dr. Willam Novoa Potassium [Moles/Vol] 4.0 mmol/L Normal 3.5-5.1 [facility] Comment on above: Performed By: #### T SH, CMP #### [facility] [address] [place] [address] Dr. Willam Novoa Protein [Mass/Vol] 7.4 g/dL Normal 6.4-8.2 [facility] Comment on above: Performed By: #### T SH, CMP #### [facility] [address] [place] [address] Dr. Willam Novoa Sodium [Moles/Vol] 142 mmol/L Normal 136-145 [facility] Comment on above: Performed By: #### T SH, CMP #### [facility] [address] [place] [address] Dr. Wlilam Novoa Urea nitrogen [Mass/Vol] 19.0 mg/dL Critically high 7.0-18.0 [facility] Comment on above: Performed By: #### T SH, CMP #### [facility] [address] [address] [address] Willam Novoa Urea nitrogen/Creatinine [Mass ratio] 25.7 mg/mg Normal [facility] Comment on above: Performed By: #### T SH, CMP #### [facility] [address] [address] [address] Willam Novoa TSHon 05-24-2022 TSH 1.350 uIU/mL Normal 0.358-3.740 [facility] Comment on above: Performed By: #### T SH, CMP #### [facility] [address] [address] [address] Willam Novoa XR cervical spine 2Von 10-19 XR cervical spine 2V [facility] Main [place] [address] [place] [address] XRay Report Signed Patient: Dionne Kauffman MR#: [id number] [birth year] : 1955 Acct:[id number] Age/Sex: 65 / F ADM Date: 10/19/21 Loc: XD Room: Type: [facility] Attending Dr: Yash Caban MD Ordering [...] Juno Yo M.D.10/19/2021 1:23 PM Dictation Location: [place] [address] Transcribed By: [facility] 10/19/21 1323 Dictated By: Juno Yo DO 10/19/21 1319 Signed By: 10/19/21 1323 [facility] Glucose Poct Glucometerson 1 11-21-2020 Commemt1 Glu2: Cleaned Meter [facility] Comment on above: Result Comment: PERF ORMED BY: [facility] [address] [place] [address] PATHOLOGIST UPTWISTER TENDER YUE CONWAY M.D. Performed By: #### G LULS ####Point of Care testing, Glucose [Mass/Vol] 167 mg/dL [facility] Comment on above: Result Comment: [facility] Glucose Reference Range is dependent on time and content of last meal. Glucose of more than 200 mg/dL in a nonstressed, ambulatory subject supports the diagnosis of Diabetes Mellitus. Performed By: #### G LULS ####Point of Care testing, Glucose Poct Glucometerson 1 11-20-2020 Glucose [Mass/Vol] 294 mg/dL Normal [facility] Comment on above: Result Comment: [place] [facility] Glucose Reference Range is dependent on time and content of last meal. Glucose of more than 200 mg/dL in a nonstressed, ambulatory subject supports the diagnosis of Diabetes Mellitus. PERFORMED BY: [place] [address] [address] [id number] PATHOLOGIST UPTWISTER TENDER YUE CONWAY M.D. Performed By: #### G LULS #### Point of Care testing , Commemt1 Glu2: Cleaned Meter [facility] Comment on above: Result Comment: PERF ORMED BY: [facility] [address] [place] [address] PATHOLOGIST UPTWISTER TENDER YUE CONWAY M.D. Performed By: #### G LULS #### Point of Care testing , Glucose [Mass/Vol] 205 mg/dL [facility] Comment on above: Result Comment: [place] [facility] Glucose Reference Range is dependent on time and content of last meal. Glucose of more than 200 mg/dL in a nonstressed, ambulatory subject supports the diagnosis of Diabetes Mellitus. Performed By: #### G LULS #### Point of Care testing , Commemt1 Glu2: Cleaned Meter Normal [facility] Comment on above: Result Comment: PERF ORMED BY: [place] [id number] PATHOLOGIST UPTWISTER TENDER YUE CONWAY M.D. Performed By: #### G LULS #### Point of Care testing , Glucose [Mass/Vol] 186 mg/dL Normal [facility] Comment on above: Result Comment: [facility] Glucose Reference Range is dependent on time and content of last meal. Glucose of more than 200 mg/dL in a nonstressed, ambulatory subject supports the diagnosis of Diabetes Mellitus. Performed By: #### G LULS #### Point of Care testing , Glucose [Mass/Vol] 175 mg/dL Normal [facility] Comment on above: Result Comment: [facility] Glucose Reference Range is dependent on time and content of last meal. Glucose of more than 200 mg/dL in a nonstressed, ambulatory subject supports the diagnosis of Diabetes Mellitus. PERFORMED BY: [place] [address] PATHOLOGIST UPTWISTER TENDER YUE CONWAY M.D. Performed By: #### G LULS #### Point of Care testing , XR cervical spine 1Von 09-19 XR cervical spine 1V [facility] Main [place] [id number] XRay Report Signed Patient: Dionne Kauffman MR#: [id number] [birth year] : 1955 Acct:[id number] Age/Sex: 65 / F ADM Date: 09/19/21 Loc: 4N Room: 3N3067-9 Type: REG SDC Attending Dr: Yash Caban [...] Danna Holloway M.D.09/19/2021 3:58 PM Dictation Location: [place] [address] Transcribed By: [facility] 09/19/211557 Dictated By: Danna Holloway MD 09/19/211555 Signed By: 09/19/211557 Normal [facility] COVID-19 [facility]OCIATIONon 09-17-2021 SARS-CoV-2 (COVID-19) RNA WESTLEY+probe Ql (Unsp spec) Negative Normal Negative [facility] Comment on above: Order Comment: Healt hcare Worker?: N Result Comment: Testing for SARS-CoV-2 by RT-PCR This test was developed and its performance characteristics determined by [employer] ([employer]) and validated at the [facility]. This test has not been FDA cleared [...] is terminated or revoked sooner. PERFORMED BY: [place] [address] PATHOLOGIST UPTWISTER TENDER YUE CONWAY M.D. Performed By: #### C OVID 19 [facility] #### [address] Basic Metabolic Panelon 12-0 Calcium [Mass/Vol] 10.2 mg/dL Normal 8.2-10.2 [facility] Comment on above: Result Comment: PERF ORMED BY: [place] [address] PATHOLOGIST UPTWISTER TENDER YUE CONWAY M.D. Performed By: #### B MP, CBC #### [facility] [address] [place] [address] [place] Chloride [Moles/Vol] 102 mmol/L Normal 95-114 [facility] Comment on above: Performed By: #### B MP, CBC #### [facility] [address] [place] [address] [place] CO2 [Moles/Vol] 26.8 mmol/L Normal 22.0-30.0 [facility] Comment on above: Performed By: #### B MP, CBC #### [facility] [address] [place] [address] Creatinine [Mass/Vol] 0.89 mg/dL Normal 0.44-1.03 [facility] Comment on above: Performed By: #### B MP, CBC #### [facility] [address] Estimated GFR ( Cindy > 60 [facility] Comment on above: Result Comment: GFR estimated reference range: According to KDOQI guidelines, <60 ml/min/1.73m2 is sufficient to diagnose a patient with chronic kidney disease. Performed By: #### B MP, CBC #### [facility] [address] [place] [address] [place] Estimated GFR (Non- Am > 60 [facility] Comment on above: Performed By: #### B MP, CBC #### [facility] [address] [place] [address] [place] Glucose [Mass/Vol] 165 mg/dL High 70-100 [facility] Comment on above: Result Comment: [facility] Glucose Reference Range is dependent on time and content of last meal. Glucose of more than 200 mg/dL in a nonstressed, ambulatory subject supports the diagnosis of Diabetes Mellitus. ADA recommended reference range Performed By: #### B MP, CBC #### [facility] [address] Potassium [Moles/Vol] 4.3 mmol/L Normal 3.5-5.1 [facility] Comment on above: Performed By: #### B MP, CBC #### [address] Sodium [Moles/Vol] 139 mmol/L Normal 136-146 [facility] Comment on above: Performed By: #### B MP, CBC #### [address] Urea nitrogen [Mass/Vol] 20 mg/dL Normal 9-23 [facility] Comment on above: Performed By: #### B MP, CBC #### [address] Complete Blood Count Auto Di ffon 09-06-2021 Basophils (Bld) [#/Vol] 0.1 10*3/uL Normal 0.0-0.2 [facility] Comment on above: Result Comment: PERF ORMED BY: [place] [address] PATHOLOGIST UPTWISTER TENDER YUE CONWAY M.D. Performed By: #### B MP, CBC #### [address] Basophils/100 WBC (Bld) 0.9 % Normal . [facility] Comment on above: Performed By: #### B MP, CBC #### [place] [address] [place] Eosinophils (Bld) [#/Vol] 0.2 10*3/uL Normal 0.0-0.45 [facility] Comment on above: Performed By: #### B MP, CBC #### [address] Eosinophils/100 WBC (Bld) 2.1 % Normal . [facility] Comment on above: Performed By: #### B MP, CBC #### [address] Erythrocyte distribution width (RBC) [Ratio] 13.8 % Normal 11.9-15.3 [facility] Comment on above: Performed By: #### B MP, CBC #### [address] Hematocrit (Bld) [Volume fraction] 43.7 % Normal 34.0-46.4 [facility] Comment on above: Performed By: #### B MP, CBC #### [address] Hemoglobin (Bld) [Mass/Vol] 14.5 g/dL Normal 11.8-15.4 [facility] Comment on above: Performed By: #### B MP, CBC #### [address] Lymphocytes (Bld) [#/Vol] 2.7 10*3/uL Normal 1.00-4.8 [facility] Comment on above: Performed By: #### B MP, CBC #### [address] Lymphocytes/100 WBC (Bld) 31.0 % Normal . [facility] Comment on above: Performed By: #### B MP, CBC #### [address] MCH (RBC) [Entitic mass] 30.5 pg Normal 24.7-34.3 [facility] Comment on above: Performed By: #### B MP, CBC #### [address] MCV (RBC) [Entitic vol] 92.1 fL Normal 80-100 F [facility] Comment on above: Performed By: #### B MP, CBC #### [address] Mean Corpuscular HGB Conc 33.1 g/dL Normal 32.0-35.0 [facility] Comment on above: Performed By: #### B MP, CBC #### [address] Monocytes (Bld) [#/Vol] 0.9 10*3/uL High 0.0-0.8 [facility] Comment on above: Performed By: #### B MP, CBC #### [facility] [address] [place] [address] [place] Monocytes/100 WBC (Bld) 9.6 % Normal . [facility] Comment on above: Performed By: #### B MP, CBC #### [facility] [address] [place] [address] [place] Neutrophils (Bld) [#/Vol] 5.0 10*3/uL Normal 1.8-7.7 [facility] Comment on above: Performed By: #### B MP, CBC #### [facility] [address] [place] [address] [place] Neutrophils/100 WBC (Bld) 56.4 % Normal . [facility] Comment on above: Performed By: #### B MP, CBC #### [facility] [address] [place] [address] [place] Nucleated RBC/100 WBC (Bld) [Ratio] 0.1 % Normal 0-0.5 [facility] Comment on above: Performed By: #### B MP, CBC #### [facility] [address] [place] [address] [place] Platelet mean volume (Bld) [Entitic vol] 7.6 fL Normal 6.3-10.7 [facility] Comment on above: Performed By: #### B MP, CBC #### [facility] [address] [place] [address] [place] Platelets (Bld) [#/Vol] 308 10*3/uL Normal 150-450 [facility] Comment on above: Performed By: #### B MP, CBC #### [facility] [address] [place] [address] [place] RBC (Bld) [#/Vol] 4.74 10*6/uL Normal 3.60-5.00 [facility] Comment on above: Performed By: #### B MP, CBC #### [facility] [address] [place] [address] [place] WBC (Bld) [#/Vol] 8.9 10*3/uL Normal 4.5-11.0 [facility] Comment on above: Performed By: #### B MP, CBC #### [place] [id number] [facility] ECG 12 lead ECGon 09-06-2021 ECG 12 lead ECG [facility] [place] [address] Electrocardiograph Report Signed Patient: Dionne Kauffman MR#: [id number] [birth year] : 1955 Acct:[id number] Age/Sex: 65 / F ADM Date: 09/06/21 [...] Signed By Marlen Genao DO 09/06 1600 [facility] XR cerv spine AP/LAT/FLX/EXT on 08-12-2021 XR cerv spine AP/LAT/FLX/EXT [facility] [place] [address] XRay Report Signed Patient: Dionne Kauffman MR#: [id number] [birth year] : 1955 Acct:[id number] Age/Sex: 65 / F ADM Date: 08/12/21 [...] Dye Jr., M.D.08/12/2021 2:35 PM Dictation Location: [place] [address] Transcribed By: [facility] 08/12/21 1435 Dictated By: Milton Dye Jr, MD 08/12/21 1433 Signed By: 08/12/21 1435 [facility] Vital Signs Date Time Vital Sign Value Performing Clinician Facility 12-18-2021 11:00-0400 Body height 165.1 cm Yash Caban Other [facility] Other 12-18-2021 11:00-0400 Body mass index (BMI) [Ratio] 36.27 kg/m2 Yash Caban Other [facility] Other 12-18-2021 11:00-0400 Body weight 98.88 kg Yash Caban Other [facility] Other 08-12-2021 14:00-0500 Body height 165.1 cm Yash Caban Other [facility] Other 08-12-2021 14:00-0500 Body mass index (BMI) [Ratio] 36.27 kg/m2 Yash Caban Other [facility] Other 08-12-2021 14:00-0500 Body weight 98.88 kg Yash Caban Other [facility] Other 08-12-2021 14:00-0500 Diastolic blood pressure 79 mm[Hg] Yash Caban Other [facility] Other 08-12-2021 14:00-0500 Systolic blood pressure 130 mm[Hg] Yash Caban Other [facility] Other Encounters Encounter Date Encounter Type Care Provider Facility Start: 04-18-2024 End: 04-18-2024 ambulatory JUDI AICHHOLZ Not Available Start: 03-07-2024 End: 03-07-2024 ambulatory JUDI AICHHOLZ Not Available Start: 12-28-2023 End: 12-28-2023 ambulatory JUDI AICHHOLZ Not Available Start: 11-23-2023 End: 11-23-2023 ambulatory JUDI AICHHOLZ Not Available Start: 11-13-2023 Refill Judi Aichholz INSURANCE ASSOCIATE Work Phone: [facility] Comment on above: Gastroesophageal ref lux disease without esophagitis (Primary Dx) Start: 09-11-2023 End: 09-12-2023 ambulatory JUDI J AICHHOLZ Facility:[facility] Start: 09-11-2023 End: 09-11-2023 Patient encounter procedure JUDI J AICHHOLZ [facility] Start: 06-03-2023 End: 07-18-2023 Pre-admission assessment JUDI J AICHHOLZ [facility] Start: 01-17-2023 End: 01-18-2023 ambulatory [facility] JUDI JIMENEZ Facility:[facility] Start: 12-27-2022 End: 12-28-2022 ambulatory [facility] [employer] JUDI JIMENEZ Facility:[facility] Start: 05-27-2022 Encounter for genera l adult medical examination without abnormal findings DR CELIA YI [facility] Start: 05-24-2022 End: 05-25-[address] CELIA YI Facility:[facility] Start: 05-24-2022 End: 05-25-2022 Encounter for general adult medical examination without abnormal findings DR CELIA YI Facility:[facility] Start: 04-20-[address] CELIA YI Facili ty:[facility] Start: 12-18-2021 End: 12-18-2021 ambulatory Yash Caban Other [facility] Other Start: 12-18-2021 Postop follow up vis it related to original px Yash Caban [facility] [place] Start: 10-02-2021 End: 10-02-2021 ambulatory Yash Caban Other [facility] Other Start: 10-02-2021 Telephone encounter Yash Parker [facility] Start: 09-23-2021 End: 09-23-2021 ambulatory Yash Caban Other [facility] Other Start: 09-23-2021 Telephone encounter Yash Nesha Parker [facility] Start: 08-12-2021 End: 08-12-2021 ambulatory Yash Caban Other [facility] Other Start: 08-12-2021 Office outpatient vi sit 25 minutes Yash Caban [facility] Neurosurgery Plan of Treatment Date Care Activity Detail Author Start: 11-23-2023 End: 11-23-2023 Patient encounter procedure 11/23/2023 6:00 PM EST Office Visit [facility] [address] [place] [address] Judi Jimenez NP [address] [place] [address] [facility] Start: 06-05-2023 Influenza vaccination Influenza Vacc ine (#1) [facility] Start: 1996 Screening for malign ant neoplasm [...] Screening for malign ant neoplasm of colon [facility] Immunizations Immunization Date Immunization Notes Care Provider Fa cility 07-09-2020 influenza virus vacc ine, unspecified formulation Judi Jimenez NP Work Phone: [facility] Healthcare Payers Date Payer Category Payer Unknown [id number] 2021 Medicare [employer] MEDICARE ADVANTAGE [employer] MEDICARE [id number] 2021-Present [address] [address] [place] [address] [id number] 1959 Medicare [id number] 1959 Self-pay [id number] 1955 Unknown [id number] 1955 Unknown [id number] 1955 Unknown [id number] 1955 Unknown [id number] 1955 Unknown [id number] 1955 Unknown [id number] [id number] 9 1955 Unknown [id number] 9 1955 Unknown [id number] 9 1955 Unknown [id number] 9 Social History Date Type Detail Facility Unknown if ever smoked [facility] Other Start: 10-30-2023 Sex Assigned At [facility] Tobacco smoking status No Smokin g Status Entered [facility] Start: 10-30-20[address] Tobacco smoking [address] [facility] Smokes tobacco daily [facility] History of tobacco use Cigarette Smoker [facility] Start: 10-30-2023 Cigarettes smoked current (pack per day) - Reported 0.5 [facility] Healthcare Start: 1955 Sex Assigned At Not on file N [facility] Healthcare Evaluation note 12-18-2021 Note Date & [...] Cervical spondylosis with myelopathy (ICD-10 - M47.12) [facility] Other Evaluation note 08-12-2021 Note Date & [...] this time the patient wishes to proceed. [facility] Other Evaluation + Plan note Note Date & Type Note Facility Evaluation + Plan note No data available for this section [facility] Evaluation note Note Date & Type Note Facility Evaluation note No Information [facility] Other Evaluation note Note Date & Type [...] History Neck Surgery Hospitalization History See Above [facility] Other History general Narrative - Reported Note Date & Type Note Facility History general Narrative - Reported [facility] Other Hospital Discharge instructions Note Date & Type Note Facility Hospital Discharge instructions No data available for this section [facility] Progress note Note Date & Type Note Facility Progress note No data available for this section [facility] Summary Purpose Family History No Family History [...] Cervical spondylosis with radiculopathy (M47.22) Referral Organization [facility] Ne urosurgery Referring Provider First Name Yash Referring Provider Last Name Nesha Referring Provider Specialty Neurosurger y Referred Organization [facility] Referred Address ,[place], [place],[address] Referred Provider Specialty Physical The rapist Referral Priority Routine Additional Source Comments INFORMATION SOURCE (unrecogn ized section and content) DATE CREATED AUTHOR 10/26/2021 [facility] DATE CREATED AUTHOR AUTHOR'S ORGANIZ ATION 03/13/2023 [facility] DATE CREATED AUTHOR AUTHOR'S ORGANIZ ATION 09/20/2023 [facility] DATE CREATED AUTHOR AUTHOR'S ORGANIZ ATION 04/22/2024 [facility] Special[facility] EPIC REASON FOR VISIT (unrecogniz ed section and content) Reason Comments Med Refill Patient Care team informatio n (unrecognized section and content) [employer] Relationship Specialty Start Date End Date Jamir Hare MD [address] [place] [address] PCP - General Family Medicine 10/30/23 Judi Jimenez NP [address] [place] [address] Nurse Practitioner Family Medicine 10/05/22 FOR RECORDS [...] BE BASED ON THE PRIMARY CLINICAL RECORDS. [facility]. provides no warranty or guarantee of the accuracy or completeness of information in this document.
== END 2024-07-15 15:36 | disposition home or self-care (01) ==
PROVIDERS: PCP Nurse Practitioner; Visit Provider Nurse Practitioner
DX: M25.561 Pain in right knee (principal); M89.29 Other disorders of bone development and growth, multiple sites; Z96.651 Presence of right artificial knee joint
CPT/HCPCS: 73562

== ENCOUNTER 2024-07-22 08:52 | Outpatient (OUT) | payer OTHER, SELFPAY ==
--- NOTE | 2024-07-22 08:55 | CT_ITS ---
The [address] [address] Patient Name: VANI KAUFFMAN MRN: [id number] date: 1955 Sex: F Assigned Patient Location: CT Current Patient Location: Accession/Order Number: [id number] Exam Date: 07/22/2024 09:09 Report Date: 07/25/2024 13:26 At the request of: JASMINE KAMARA Procedure: CT chest w con EXAMINATION: CT chest w con HISTORY: Hemoptysis, R04.2 COMPARISON: No relevant comparison available. TECHNIQUE: Multi-planar CT images were created with IV contrast. Axial, Coronal, and Sagittal images. Dose reduction techniques were achieved by using automated exposure control and/or adjustment of mA and/or kV according to patient size and/or use of iterative reconstruction technique. FINDINGS: LUNGS: 9 x 6 mm left upper lobe nodule axial image #38. No additional pulmonary nodule or mass. Mild dependent opacities PLEURA: No mass, effusion, or pneumothorax. VASCULATURE: No abnormality. MARZENA: No mass or adenopathy. MEDIASTINUM: No mass or adenopathy. CARDIAC: No enlargement or pericardial effusion. Coronary arteries: Moderate calcifications AORTA: No aortic aneurysm or dissection. Mild to moderate calcific atherosclerosis CHEST WALL: No mass or axillary adenopathy. BONES: No bone lesion or fracture. LIMITED ABDOMEN: Diffuse hypoattenuation the liver consistent with hepatic steatosis. 3.2 cm left adrenal mass measuring 72 Hounsfield units OTHER: Negative. CT/CT chest w con IMPRESSION: 9 mm left upper lobe nodule, indeterminate. Consider scan to evaluate metabolic status No explanation for the patient's hemoptysis 3.2 cm left adrenal mass Electronically authenticated by: ASH ACUÑA Date: 07/25/2024 13:26
--- OUTSIDE RECORDS SUMMARY | 2024-07-22 08:55 | XMS_ITS | CCD ---
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 Novoa ALT [Catalytic activity/Vol] 29 U/L Normal 14-59 [facility] Comment on above: Performed By: #### C MP, LIPID, TSH #### [facility] [address] [address] [address] Willam Novoa Anion gap [Moles/Vol] 10.7 mmol/L Normal [facility] Comment on above: Performed By: #### C MP, LIPID, TSH #### [facility] [address] [address] [address] Willam Novoa AST [Catalytic activity/Vol] 10 U/L Critically low 15-37 [facility] Comment on above: Performed By: #### C MP, LIPID, TSH #### [facility] [address] [address] [address] Willam Novoa Bilirubin [Mass/Vol] 0.3 mg/dL Normal 0.2-1.0 [facility] Comment on above: Performed By: #### C MP, LIPID, TSH #### [facility] [address] [address] [address] Willam Novoa Calcium [Mass/Vol] 9.4 mg/dL Normal 8.5-10.1 [facility] Comment on above: Performed By: #### C MP, LIPID, TSH #### [facility] [address] [address] [address] Willam Novoa Chloride [Moles/Vol] 103 mmol/L Normal 98-107 [facility] Comment on above: Performed By: #### C MP, LIPID, TSH #### [facility] [address] [address] [address] Willam Novoa CO2 [Moles/Vol] 28.3 mmol/L Normal 21.0-32.0 [facility] Comment on above: Performed By: #### C MP, LIPID, TSH #### [facility] [address] [address] [address] Willam Novoa Creatinine [Mass/Vol] 0.72 mg/dL Normal 0.55-1.02 [facility] Comment on above: Performed By: #### C MP, LIPID, TSH #### [facility] [address] [place] [address] Dr. Willam Novoa EGFR-AF NORWEGIAN >60 Normal >=60 [facility] Comment on above: Performed By: #### C MP, LIPID, TSH #### [facility] [address] [place] [address] Dr. Willam Novoa EGFR-NON AF NORWEGIAN >60 Normal >=60 [facility] Comment on above: Performed By: #### C MP, LIPID, TSH #### [facility] [address] [place] [address] Dr. Willam Novoa Globulin (S) [Mass/Vol] 3.8 g/dL Normal [facility] Comment on above: Performed By: #### C MP, LIPID, TSH #### [facility] [address] [place] [address] Dr. Willam Novoa Glucose [Mass/Vol] 287 mg/dL Critically high 74-106 [facility] Comment on above: Performed By: #### C MP, LIPID, TSH #### [facility] [address] [address] [address] Willam Novoa Potassium [Moles/Vol] 4.0 mmol/L Normal 3.5-5.1 [facility] Comment on above: Performed By: #### C MP, LIPID, TSH #### [facility] [address] [place] [address] Dr. Willam Novoa Protein [Mass/Vol] 7.7 g/dL Normal 6.4-8.2 [facility] Comment on above: Performed By: #### C MP, LIPID, TSH #### [facility] [address] [place] [address] Dr. Willam Novoa Sodium [Moles/Vol] 138 mmol/L Normal 136-145 [facility] Comment on above: Performed By: #### C MP, LIPID, TSH #### [facility] [address] [place] [address] Dr. Willam Novoa Urea nitrogen [Mass/Vol] 13.0 mg/dL Normal 7.0-18.0 [facility] Comment on above: Performed By: #### C MP, LIPID, TSH #### [facility] [address] [place] [address] Dr. Willam Novoa Urea nitrogen/Creatinine [Mass ratio] 18.1 mg/mg Normal [facility] Comment on above: Performed By: #### C MP, LIPID, TSH #### [facility] [address] [place] [address] Dr. Willam Novoa TSHon 12-27-2022 TSH 1.361 uIU/mL Normal 0.358-3.740 [facility] Comment on above: Performed By: #### C MP, LIPID, TSH #### [facility] [address] [place] [address] Dr. Willam Novoa UA RANDOM W/MICROSCOPICon BACTERIA NONE SEEN Normal NONE SEEN [facility] Comment on above: Performed By: #### U AMIC #### [facility] [address] [place] [address] Dr. Willam Novoa Bilirubin Ql (U) Negative Normal NEGATIVE [facility] Comment on above: Performed By: #### U AMIC #### [facility] [address] [place] [address] Dr. Willam Novoa CAST NONE SEEN Normal NONE SEEN [facility] Comment on above: Performed By: #### U AMIC #### [facility] [address] [address] [address] Willam Novoa Clarity (U) CLEAR Normal CLEAR [facility] Comment on above: Performed By: #### U AMIC #### [facility] [address] [address] [address] Willam Novoa Color (U) LT. YELLOW Normal YELLOW [facility] Comment on above: Performed By: #### U AMIC #### [facility] [address] [address] [address] Willam Novoa Crystals LM Nom (Urine sed) NONE SEEN Normal NONE SEEN [facility] Comment on above: Performed By: #### U AMIC #### [facility] [address] [place] [address] Dr. Willam Novoa Epithelial cells LM Ql (Urine sed) RARE Normal NONE SEEN /RARE [facility] Comment on above: Performed By: #### U AMIC #### [facility] [address] [address] [address] Willam Novoa Glucose Ql (U) >1000 Abnormal NEGATIVE [facility] Comment on above: Performed By: #### U AMIC #### [facility] [address] [place] [address] Dr. Willam Novoa Hemoglobin Ql (U) Negative Normal NEGATIVE [facility] Comment on above: Performed By: #### U AMIC #### [facility] [address] [address] [address] Willam Novoa Ketones Ql (U) Negative Normal NEGATIVE [facility] Comment on above: Performed By: #### U AMIC #### [facility] [address] [address] [address] Willam Novoa LEUKOCYTES Negative Normal NEGATIVE [facility] Comment on above: Performed By: #### U AMIC #### [facility] [address] [place] [address] Dr. Willam Novoa MUCOUS NONE SEEN Normal NONE SEEN [facility] Comment on above: Performed By: #### U AMIC #### [facility] [address] [address] [address] Willam Novoa Nitrite Ql (U) Negative Normal NEGATIVE [facility] Comment on above: Performed By: #### U AMIC #### [facility] [address] [place] [address] Dr. Willam Novoa pH (U) 6.0 [pH] Normal 5-9 [facility] Comment on above: Performed By: #### U AMIC #### [facility] [address] [place] [address] Dr. Willam Novoa RBC NONE SEEN Abnormal 0-2 [facility] Comment on above: Performed By: #### U AMIC #### [facility] [address] [place] [address] Dr. Willam Novoa SPEC GRAVITY <=1.005 Abnormal 1.005-<=1.025 [facility] Comment on above: Performed By: #### U AMIC #### [facility] [address] [place] [address] Dr. Willam Novoa UA PROTEIN Negative Normal NEGATIVE/ TRACE [facility] Comment on above: Performed By: #### U AMIC #### [facility] [address] [place] [address] Dr. Willam Novoa Urobilinogen Qn (U) 0.2 {Kalpesh'U}/dL Normal 0.2 - 1. 0 [facility] Comment on above: Performed By: #### U AMIC #### [facility] [address] [place] [address] Dr. Willam Novoa WBC NONE SEEN Normal NONE SEEN [facility] Comment on above: Performed By: #### U AMIC #### [facility] [address] [place] [address] Dr. Willam Novoa MICROALBUMIN URINEon 022 Albumin, Urine 5.9 ug/mL Normal Not Estab. [facility] Comment on above: Performed By: #### M ALBLC #### [facility] [address] [place] [address] Dr. Willam Novoa T4 LABCORPon 05-25-2022 T4 [Mass/Vol] 8.3 ug/dL Normal 4.5-12.0 [facility] Comment on above: Performed By: #### C BC #### [facility] [address] [place] [address] Dr. Willam Novoa CBC AUTO DIFFon 05-24-2022 BASO # 0.1 103/ul Normal 0.0-0.1 [facility] Comment on above: Performed By: #### C BC #### [facility] [address] [place] [address] Dr. Willam Novoa Basophils/100 WBC (Bld) 0.9 % Normal 0.2-2.0 [facility] Comment on above: Performed By: #### C BC #### [facility] [address] [place] [address] Dr. Willam Novoa EO # 0.3 103/ul Normal 0.0-0.7 [facility] Comment on above: Performed By: #### C BC #### [facility] [address] [place] [address] Dr. Willam Novoa Eosinophils/100 WBC (Bld) 3.5 % Normal 0.9-7.0 [facility] Comment on above: Performed By: #### C BC #### [facility] [address] [place] [address] Dr. Willam Novoa Erythrocyte distribution width (RBC) [Ratio] 13.2 % Normal 11.0-15.0 [facility] Comment on above: Performed By: #### C BC #### [facility] [address] [place] [address] Dr. Willam Novoa Hematocrit (Bld) [Volume fraction] 45.7 % Normal 36.0-48.0 [facility] Comment on above: Performed By: #### C BC #### [facility] [address] [place] [address] Dr. Willam Novoa Hemoglobin (Bld) [Mass/Vol] 14.3 g/dL Normal 12.0-16.0 [facility] Comment on above: Performed By: #### C BC #### [facility] [address] [place] [address] Dr. Willam Novoa IG # 0.03 10e3/ul Normal 0.00-0.03 [facility] Comment on above: Performed By: #### C BC #### [facility] [address] [place] [address] Dr. Willam Novoa IG % 0.3 % Normal 0.0-0.5 [facility] Comment on above: Performed By: #### C BC #### [facility] [address] [place] [address] Dr. Willam Novoa LYMPH # 3.5 103/ul Normal 1.2-3.8 [facility] Comment on above: Performed By: #### C BC #### [facility] [address] [place] [address] Dr. Willam Novoa Lymphocytes/100 WBC (Bld) 38.7 % Normal 20.5-60.0 [facility] Comment on above: Performed By: #### C BC #### [facility] [address] [place] [address] Dr. Willam Novoa MANUAL DIFF REQ NO Normal [facility] Comment on above: Performed By: #### C BC #### [facility] [address] [place] [address] Dr. Willam Novoa MCH (RBC) [Entitic mass] 29.8 pg Normal 26.7-34.0 [facility] Comment on above: Performed By: #### C BC #### [facility] [address] [place] [address] Dr. Willam Novoa MCHC (RBC) [Mass/Vol] 31.3 g/dL Normal 29.9-35.2 [facility] Comment on above: Performed By: #### C BC #### [facility] [address] [place] [address] Dr. Willam Novoa MCV (RBC) [Entitic vol] 95.2 fL Normal 81.0-99.0 [facility] Comment on above: Performed By: #### C BC #### [facility] [address] [place] [address] Dr. Willam Novoa MONO # 0.8 103/ul Normal 0.3-0.8 [facility] Comment on above: Performed By: #### C BC #### [facility] [address] [address] [address] Willam Novoa Monocytes/100 WBC (Bld) 9.3 % Normal 1.7-12.0 [facility] Comment on above: Performed By: #### C BC #### [facility] [address] [place] [address] Dr. Willam Novoa NEUT # 4.2 103/ul Normal 1.4-6.5 [facility] Comment on above: Performed By: #### C BC #### [facility] [address] [place] [address] Dr. Willam Novoa Neutrophils/100 WBC (Bld) 47.3 % Normal 43.0-75.0 [facility] Comment on above: Performed By: #### C BC #### [facility] [address] [place] [address] Dr. Willam Novoa Platelet mean volume (Bld) [Entitic vol] 9.3 fL Critically low 9.5-13.5 [facility] Comment on above: Performed By: #### C BC #### [facility] [address] [place] [address] Dr. Willam Novoa PLT 295 103/ul Normal 150-450 [facility] Comment on above: Performed By: #### C BC #### [facility] [address] [place] [address] Dr. Willam Novoa RBC 4.80 106/ul Normal 4.20-5.40 [facility] Comment on above: Performed By: #### C BC #### [facility] [address] [place] [address] Dr. Willam Novoa WBC 8.9 103/ul Normal 4.0-11.0 [facility] Comment on above: Performed By: #### C BC #### [facility] [address] [place] [address] Dr. Willam Novoa GLYCOHEMOGLOBIN A1Con 2021 ADA RECOMMENDATION SEE BELOW Normal [facility] Comment on above: Result Comment: ADA RECOMMENDED LIMIT 4.0 - 6.0 ADA THERAPEUTIC TARGET < 7.0 ACTION SUGGESTED > 7.0 Performed By: #### A 1C #### [facility] [address] [place] [address] Dr. Willam Novoa Glucose [Mass/Vol] 200 mg/dL Normal [facility] Comment on above: Performed By: #### A 1C #### [facility] [address] [place] [address] Dr. Willam Novoa HbA1c (Bld) [Mass fraction] 8.6 % Critically high 4.5-6.2 [facility] Comment on above: Performed By: #### A 1C #### [facility] [address] [place] [address] Dr. Willam Novoa PROF 14(COMP METB)on 022 Albumin [Mass/Vol] 4.1 g/dL Normal 3.4-5.0 [facility] Comment on above: Performed By: #### T SAVANNAH, CMP #### [facility] [address] [place] [address] Dr. Willam Novoa Albumin/Globulin [Mass ratio] 1.2 {ratio} Normal [facility] Comment on above: Performed By: #### T SAVANNAH, CMP #### [facility] [address] [place] [address] Dr. Willam Novoa ALP [Catalytic activity/Vol] 121 U/L Critically high 46-116 [facility] Comment on above: Performed By: #### T SAVANNAH, CMP #### [facility] [address] [place] [address] Dr. Willam Novoa ALT [Catalytic activity/Vol] 31 U/L Normal 14-59 [facility] Comment on above: Performed By: #### T SAVANNAH, CMP #### [facility] [address] [place] [address] Dr. Willam Novoa Anion gap [Moles/Vol] 15.9 mmol/L Normal [facility] Comment on above: Performed By: #### T SAVANNAH, CMP #### [facility] [address] [place] [address] Dr. Willam Novoa AST [Catalytic activity/Vol] 13 U/L Critically low 15-37 [facility] Comment on above: Performed By: #### T SH, CMP #### [facility] [address] [place] [address] Dr. Willam Novoa Bilirubin [Mass/Vol] 0.4 mg/dL Normal 0.2-1.0 [facility] Comment on above: Performed By: #### T SH, CMP #### [facility] [address] [place] [address] Dr. Willam Novoa Calcium [Mass/Vol] 9.3 mg/dL Normal 8.5-10.1 [facility] Comment on above: Performed By: #### T SH, CMP #### [facility] [address] [place] [address] Dr. Willam Novoa Chloride [Moles/Vol] 103 mmol/L Normal 98-107 [facility] Comment on above: Performed By: #### T SH, CMP #### [facility] [address] [place] [address] Dr. Willam Novoa CO2 [Moles/Vol] 27.1 mmol/L Normal 21.0-32.0 [facility] Comment on above: Performed By: #### T SH, CMP #### [facility] [address] [place] [address] Dr. Willam Novoa Creatinine [Mass/Vol] 0.74 mg/dL Normal 0.55-1.02 [facility] Comment on above: Performed By: #### T SH, CMP #### [facility] [address] [place] [address] Dr. Willam Novoa EGFR-AF NORWEGIAN >60 Normal >=60 [facility] Comment on above: Performed By: #### T SH, CMP #### [facility] [address] [place] [address] Dr. Willam Novoa EGFR-NON AF NORWEGIAN >60 Normal >=60 [facility] Comment on above: Performed By: #### T SH, CMP #### [facility] [address] [place] [address] Dr. Willam Novoa Globulin (S) [Mass/Vol] 3.3 g/dL Normal [facility] Comment on above: Performed By: #### T SH, CMP #### [facility] [address] [place] [address] Dr. Willam Novoa Glucose [Mass/Vol] 194 mg/dL Critically high 74-106 [facility] Comment on above: Performed By: #### T SH, CMP #### [facility] [address] [place] [address] Dr. Willam Novoa Potassium [Moles/Vol] 4.0 mmol/L Normal 3.5-5.1 [facility] Comment on above: Performed By: #### T SH, CMP #### [facility] [address] [place] [address] Dr. Willam Novoa Protein [Mass/Vol] 7.4 g/dL Normal 6.4-8.2 [facility] Comment on above: Performed By: #### T SH, CMP #### [facility] [address] [place] [address] Dr. Willam Novoa Sodium [Moles/Vol] 142 mmol/L Normal 136-145 [facility] Comment on above: Performed By: #### T SH, CMP #### [facility] [address] [place] [address] Dr. Willam Novoa Urea nitrogen [Mass/Vol] 19.0 mg/dL Critically high 7.0-18.0 [facility] Comment on above: Performed By: #### T SH, CMP #### [facility] [address] [place] [address] Dr. Willam Novoa Urea nitrogen/Creatinine [Mass ratio] 25.7 mg/mg Normal [facility] Comment on above: Performed By: #### T SH, CMP #### [facility] [address] [place] [address] Dr. Willam Novoa TSHon 05-24-2022 TSH 1.350 uIU/mL Normal 0.358-3.740 [facility] Comment on above: Performed By: #### T SH, CMP #### [facility] [address] [place] [address] Dr. Willam Novoa XR cervical spine 2Von 10-19 XR cervical spine 2V [facility] [place] [address] [place] [id number] XRay Report Signed Patient: Dionne Arreola MR#: [id number] 47 : 1955 Acct:[id number] Age/Sex: 65 / F ADM Date: 10/19/21 Loc: XD Room: Type: [facility] Attending Dr: Yash Caban MD Ordering Provider: [...] Juno Yo M.D.10/19/2021 1:23 PM Dictation Location: [place] [address] Transcribed By: [facility] 10/19/21 1323 Dictated By: Juno Yo DO 10/19/21 1319 Signed By: 10/19/21 1323 [facility] Glucose Poct Glucometerson 1 11-21-2020 Commemt1 Glu2: Cleaned Meter [facility] Comment on above: Result Comment: PERF ORMED BY: [place] [address] PATHOLOGIST MEMORIAL COUNSELOR YUE CONWAY M.D. Performed By: #### G LUTRUE ####Point of Care testing, Glucose [Mass/Vol] 167 mg/dL [facility] Comment on above: Result Comment: [place] [facility] Glucose Reference Range is dependent on time and content of last meal. Glucose of more than 200 mg/dL in a nonstressed, ambulatory subject supports the diagnosis of Diabetes Mellitus. Performed By: #### G LULS ####Point of Care testing, Glucose Poct Glucometerson 1 11-20-2020 Glucose [Mass/Vol] 294 mg/dL Normal [facility] Comment on above: Result Comment: [place] [facility] Glucose Reference Range is dependent on time and content of last meal. Glucose of more than 200 mg/dL in a nonstressed, ambulatory subject supports the diagnosis of Diabetes Mellitus. PERFORMED BY: [place] [address] PATHOLOGIST MEMORIAL COUNSELOR YUE CONWAY M.D. Performed By: #### G LULS #### Point of Care testing , Commemt1 Glu2: Cleaned Meter [facility] Comment on above: Result Comment: PERF ORMED BY: [address] [address] PATHOLOGIST MEMORIAL COUNSELOR YUE CONWAY M.D. Performed By: #### G LULS #### Point of Care testing , Glucose [Mass/Vol] 205 mg/dL Normal [facility] Comment on above: Result Comment: [place] [facility] Glucose Reference Range is dependent on time and content of last meal. Glucose of more than 200 mg/dL in a nonstressed, ambulatory subject supports the diagnosis of Diabetes Mellitus. Performed By: #### G LULS #### Point of Care testing , Commemt1 Glu2: Cleaned Meter [facility] Comment on above: Result Comment: PERF ORMED BY: [place] [address] PATHOLOGIST MEMORIAL COUNSELOR YUE CONWAY M.D. Performed By: #### G LULS #### Point of Care testing , Glucose [Mass/Vol] 186 mg/dL Normal [facility] Comment on above: Result Comment: [place] [facility] Glucose Reference Range is dependent on time and content of last meal. Glucose of more than 200 mg/dL in a nonstressed, ambulatory subject supports the diagnosis of Diabetes Mellitus. Performed By: #### G LULS #### Point of Care testing , Glucose [Mass/Vol] 175 mg/dL Normal [facility] Comment on above: Result Comment: [facility] Glucose Reference Range is dependent on time and content of last meal. Glucose of more than 200 mg/dL in a nonstressed, ambulatory subject supports the diagnosis of Diabetes Mellitus. PERFORMED BY: [place] [address] PATHOLOGIST MEMORIAL COUNSELOR YUE CONWAY M.D. Performed By: #### G LULS #### Point of Care testing , XR cervical spine 1Von 09-19 XR cervical spine 1V [facility] [place] [address] XRay Report Signed Patient: Dionne Arreola MR#: [id number] 46 : 1955 Acct:[id number] Age/Sex: 65 / F ADM Date: 09/19/21 Loc: Room: [address] [place] [address] Type: REG SDC Attending Dr: Yash Caban [...] Danna Holloway M.D.09/19/2021 3:58 PM Dictation Location: [place] [address] Transcribed By: [facility] 09/19/21 155 Dictated By: Danna Holloway MD 09/19/21 155 Signed By: 09/19/21 1558 [facility] COVID[place]19 [facility] SARS-CoV-2 (COVID-19) RNA WESTLEY+probe Ql (Unsp spec) Negative Normal Negative [facility] Comment on above: Order Comment: 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 This test has not been FDA cleared [...] is terminated or revoked sooner. PERFORMED BY: [place] [address] PATHOLOGIST MEMORIAL COUNSELOR YUE CONWAY M.D. Performed By: #### C OVID 19 [facility] #### [address] Basic Metabolic Panelon 12-0 Calcium [Mass/Vol] 10.2 mg/dL Normal 8.2-10.2 [facility] Comment on above: Result Comment: PERF ORMED BY: [place] [address] PATHOLOGIST MEMORIAL COUNSELOR YUE CONWAY M.D. Performed By: #### B MP, CBC #### [place] [address] [place] Chloride [Moles/Vol] 102 mmol/L Normal 95-114 [facility] Comment on above: Performed By: #### B MP, CBC #### [place] [address] [place] CO2 [Moles/Vol] 26.8 mmol/L Normal 22.0-30.0 [facility] Comment on above: Performed By: #### B MP, CBC #### [facility] [address] [place] [id number] [place] Creatinine [Mass/Vol] 0.89 mg/dL Normal 0.44-1.03 [facility] Comment on above: Performed By: #### B MP, CBC #### [facility] [address] [place] [address] [place] Estimated GFR ( Cindy > 60 Normal [facility] Comment on above: Result Comment: GFR estimated reference range: According to KDOQI guidelines, <60 ml/min/1.73m2 is sufficient to diagnose a patient with chronic kidney disease. Performed By: #### B MP, CBC #### [facility] [address] [place] [address] [place] Estimated GFR (Non- Am > 60 Normal [facility] Comment on above: Performed By: #### B MP, CBC #### [place] [address] [place] Glucose [Mass/Vol] 165 mg/dL High 70-100 [facility] Comment on above: Result Comment: [place] om Glucose Reference Range is dependent on time and content of last meal. Glucose of more than 200 mg/dL in a nonstressed, ambulatory subject supports the diagnosis of Diabetes Mellitus. ADA recommended reference range Performed By: #### B MP, CBC #### [place] [address] [place] Potassium [Moles/Vol] 4.3 mmol/L Normal 3.5-5.1 [facility] Comment on above: Performed By: #### B MP, CBC #### [place] [id number] [place] Sodium [Moles/Vol] 139 mmol/L Normal 136-146 [facility] Comment on above: Performed By: #### B MP, CBC #### [place] [address] [place] Urea nitrogen [Mass/Vol] 20 mg/dL Normal 9-23 [facility] Comment on above: Performed By: #### B MP, CBC #### [address] Complete Blood Count Auto Di ffon 09-06-2021 Basophils (Bld) [#/Vol] 0.1 10*3/uL Normal 0.0-0.2 [facility] Comment on above: Result Comment: PERF ORMED BY: [place] [address] PATHOLOGIST MEMORIAL COUNSELOR YUE CONWAY M.D. Performed By: #### B MP, CBC #### [address] Basophils/100 WBC (Bld) 0.9 % Normal . [facility] Comment on above: Performed By: #### B MP, CBC #### [address] Eosinophils (Bld) [#/Vol] 0.2 10*3/uL Normal 0.0-0.45 [facility] Comment on above: Performed By: #### B MP, CBC #### [address] Eosinophils/100 WBC (Bld) 2.1 % Normal . [facility] Comment on above: Performed By: #### B MP, CBC #### [address] Erythrocyte distribution width (RBC) [Ratio] 13.8 % Normal 11.9-15.3 [facility] Comment on above: Performed By: #### B MP, CBC #### [address] Hematocrit (Bld) [Volume fraction] 43.7 % Normal 34.0-46.4 [facility] Comment on above: Performed By: #### B MP, CBC #### [place] [address] [place] Hemoglobin (Bld) [Mass/Vol] 14.5 g/dL Normal 11.8-15.4 [facility] Comment on above: Performed By: #### B MP, CBC #### [place] [address] [place] Lymphocytes (Bld) [#/Vol] 2.7 10*3/uL Normal 1.00-4.8 [facility] Comment on above: Performed By: #### B MP, CBC #### [address] Lymphocytes/100 WBC (Bld) 31.0 % Normal . [facility] Comment on above: Performed By: #### B MP, CBC #### [facility] [address] MCH (RBC) [Entitic mass] 30.5 pg Normal 24.7-34.3 [facility] Comment on above: Performed By: #### B MP, CBC #### [address] MCV (RBC) [Entitic vol] 92.1 fL Normal 80-100 [facility] Comment on above: Performed By: #### B MP, CBC #### [address] Mean Corpuscular HGB Conc 33.1 g/dL Normal 32.0-35.0 [facility] Comment on above: Performed By: #### B MP, CBC #### [address] Monocytes (Bld) [#/Vol] 0.9 10*3/uL High 0.0-0.8 [facility] Comment on above: Performed By: #### B MP, CBC #### [address] Monocytes/100 WBC (Bld) 9.6 % Normal . [facility] Comment on above: Performed By: #### B MP, CBC #### [address] Neutrophils (Bld) [#/Vol] 5.0 10*3/uL Normal 1.8-7.7 [facility] Comment on above: Performed By: #### B MP, CBC #### [address] Neutrophils/100 WBC (Bld) 56.4 % Normal . [facility] Comment on above: Performed By: #### B MP, CBC #### [address] Nucleated RBC/100 WBC (Bld) [Ratio] 0.1 % Normal 0-0.5 [facility] Comment on above: Performed By: #### B MP, CBC #### [address] Platelet mean volume (Bld) [Entitic vol] 7.6 fL Normal 6.3-10.7 [facility] Comment on above: Performed By: #### B MP, CBC #### [address] Platelets (Bld) [#/Vol] 308 10*3/uL Normal 150-450 [facility] Comment on above: Performed By: #### B MP, CBC #### [address] RBC (Bld) [#/Vol] 4.74 10*6/uL Normal 3.60-5.00 [facility] Comment on above: Performed By: #### B MP, CBC #### [address] WBC (Bld) [#/Vol] 8.9 10*3/uL Normal 4.5-11.0 [facility] Comment on above: Performed By: #### B MP, CBC #### [address] ECG 12 lead ECGon 09-06-2021 ECG 12 lead ECG [facility] Main [place] [address] [place] [address] Electrocardiograph Report Signed Patient: Dionne Arreola MR#: [id number] 46 : 1955 Acct:[id number] Age/Sex: 65 / F ADM Date: 09/06/21 Loc: Room: Type: [facility] Attending Dr: Yash Caban MD Ordering Provider: [...] Signed By:MARLEN GENAO DO, FACC Transcribed By: DEE DEE Signed By Marlen Genao DO 09/06 1600 [facility] XR cerv spine AP/LAT/FLX/EXT on 08-12-2021 XR cerv spine AP/LAT/FLX/EXT [facility] [place] [address] XRay Report Signed Patient: Dionne Arreola MR#: [id number] 46 : 1955 Acct:[id number] Age/Sex: 65 / F ADM Date: 08/12/21 Loc: Room: Type: [facility] Attending Dr: Yash Caban MD Ordering Provider: [...] Dye Jr., M.D.08/12/2021 2:35 PM Dictation Location: [place] [address] Transcribed By: [facility] 08/12/21 1435 Dictated By: Milton Dye Jr, MD 08/12/21 1433 Signed By: 08/12/21 1435 [facility] Vital Signs Date Time Vital Sign Value Performing Clinician Facility 07-13-2024 17:43-0400 Body height 160 cm Judi Jimenez [employer]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
== END 2024-07-22 08:53 | disposition home or self-care (01) ==
LOC: CT 08:52
PROVIDERS: PCP Nurse Practitioner; Visit Provider Nurse Practitioner
DX: R04.2 Hemoptysis (principal); R91.1 Solitary pulmonary nodule
CPT/HCPCS: 71260; Q9967

== ENCOUNTER 2024-08-04 06:16 | Outpatient (OUT) | payer OTHER, SELFPAY ==
--- OUTSIDE RECORDS SUMMARY | 2024-08-04 06:21 | XMS_ITS | CCD ---
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 Normal NEGATIVE [facility] Comment on above: Performed By: #### U AMIC #### [facility] [address] [place] [address] Dr. Willam Novoa pH (U) 6.0 [pH] Normal 5-9 [facility] Comment on above: Performed By: #### U AMIC #### [facility] [address] [place] [address] Dr. Willam Novoa RBC NONE SEEN Abnormal 0-2 [facility] Comment on above: Performed By: #### U AMIC #### [facility] [address] [place] [address] Dr. Willam Novoa SPEC GRAVITY <=1.005 Abnormal 1.005-<=1.025 [facility] Comment on above: Performed By: #### U AMIC #### [facility] [address] [place] [address] Dr. Willam Novoa UA PROTEIN Negative Normal NEGATIVE/ TRACE [facility] Comment on above: Performed By: #### U AMIC #### [facility] [address] [place] [address] Dr. Willam Novoa Urobilinogen Qn (U) 0.2 {Kalpesh'U}/dL Normal 0.2 - 1. 0 [facility] Comment on above: Performed By: #### U AMIC #### [facility] [address] [place] [address] Dr. Willam Novoa WBC NONE SEEN Normal NONE SEEN [facility] Comment on above: Performed By: #### U AMIC #### [facility] [address] [place] [address] Dr. Willam Novoa MICROALBUMIN URINEon 08-21-2 022 Albumin, Urine 5.9 ug/mL Normal Not Estab. [facility] Comment on above: Performed By: #### M ALBLC #### [facility] [address] [place] [address] Dr. Willam Novoa T4 LABCORPon 05-25-2022 T4 [Mass/Vol] 8.3 ug/dL Normal 4.5-12.0 [facility] Comment on above: Performed By: #### C BC #### [facility] [address] [place] [address] Dr. Willam Novoa CBC AUTO DIFFon 05-24-2022 BASO # 0.1 103/ul Normal 0.0-0.1 [facility] Comment on above: Performed By: #### C BC #### [facility] [address] [place] [address] Dr. Willam Novoa Basophils/100 WBC (Bld) 0.9 % Normal 0.2-2.0 [facility] Comment on above: Performed By: #### C BC #### [facility] [address] [place] [address] Dr. Willam Novoa EO # 0.3 103/ul Normal 0.0-0.7 [facility] Comment on above: Performed By: #### C BC #### [facility] [address] [place] [address] Dr. Willam Novoa Eosinophils/100 WBC (Bld) 3.5 % Normal 0.9-7.0 [facility] Comment on above: Performed By: #### C BC #### [facility] [address] [place] [address] Dr. Willam Novoa Erythrocyte distribution width (RBC) [Ratio] 13.2 % Normal 11.0-15.0 [facility] Comment on above: Performed By: #### C BC #### [facility] [address] [place] [address] Dr. Willam Novoa Hematocrit (Bld) [Volume fraction] 45.7 % Normal 36.0-48.0 [facility] Comment on above: Performed By: #### C BC #### [facility] [address] [place] [address] Dr. Willam Novoa Hemoglobin (Bld) [Mass/Vol] 14.3 g/dL Normal 12.0-16.0 [facility] Comment on above: Performed By: #### C BC #### [facility] [address] [place] [address] Dr. Willam Novoa IG # 0.03 10e3/ul Normal 0.00-0.03 [facility] Comment on above: Performed By: #### C BC #### [facility] [address] [place] [address] Dr. Willam Novoa IG % 0.3 % Normal 0.0-0.5 [facility] Comment on above: Performed By: #### C BC #### [facility] [address] [place] [address] Dr. Willam Novoa LYMPH # 3.5 103/ul Normal 1.2-3.8 [facility] Comment on above: Performed By: #### C BC #### [facility] [address] [place] [address] Dr. Willam Novoa Lymphocytes/100 WBC (Bld) 38.7 % Normal 20.5-60.0 [facility] Comment on above: Performed By: #### C BC #### [facility] [address] [place] [address] Dr. Willam Novoa MANUAL DIFF REQ NO Normal [facility] Comment on above: Performed By: #### C BC #### [facility] [address] [place] [address] Dr. Willam Novoa MCH (RBC) [Entitic mass] 29.8 pg Normal 26.7-34.0 [facility] Comment on above: Performed By: #### C BC #### [facility] [address] [place] [address] Dr. Willam Novoa MCHC (RBC) [Mass/Vol] 31.3 g/dL Normal 29.9-35.2 [facility] Comment on above: Performed By: #### C BC #### [facility] [address] [place] [address] Dr. Willam Novoa MCV (RBC) [Entitic vol] 95.2 fL Normal 81.0-99.0 [facility] Comment on above: Performed By: #### C BC #### [facility] [address] [place] [address] Dr. Willam Novoa MONO # 0.8 103/ul Normal 0.3-0.8 [facility] Comment on above: Performed By: #### C BC #### [facility] [address] [place] [address] Dr. Willam Novoa Monocytes/100 WBC (Bld) 9.3 % Normal 1.7-12.0 [facility] Comment on above: Performed By: #### C BC #### [facility] [address] [place] [address] Dr. Willam Novoa NEUT # 4.2 103/ul Normal 1.4-6.5 [facility] Comment on above: Performed By: #### C BC #### [facility] [address] [place] [address] Dr. Willam Novoa Neutrophils/100 WBC (Bld) 47.3 % Normal 43.0-75.0 [facility] Comment on above: Performed By: #### C BC #### [facility] [address] [place] [address] Dr. Willam Novoa Platelet mean volume (Bld) [Entitic vol] 9.3 fL Critically low 9.5-13.5 [facility] Comment on above: Performed By: #### C BC #### [facility] [address] [place] [address] Dr. Willam Novoa PLT 295 103/ul Normal 150-450 [facility] Comment on above: Performed By: #### C BC #### [facility] [address] [place] [address] Dr. Willam Novoa RBC 4.80 106/ul Normal 4.20-5.40 [facility] Comment on above: Performed By: #### C BC #### [facility] [address] [place] [address] Dr. Willam Novoa WBC 8.9 103/ul Normal 4.0-11.0 [facility] Comment on above: Performed By: #### C BC #### [facility] [address] [address] [address] Willam Novoa GLYCOHEMOGLOBIN A1Con 2021 ADA RECOMMENDATION SEE BELOW Normal [facility] Comment on above: Result Comment: ADA RECOMMENDED LIMIT 4.0 - 6.0 ADA THERAPEUTIC TARGET < 7.0 ACTION SUGGESTED > 7.0 Performed By: #### A 1C #### [facility] [address] [address] [address] Willam Novoa Glucose [Mass/Vol] 200 mg/dL Normal [facility] Comment on above: Performed By: #### A 1C #### [facility] [address] [place] [address] Dr. Willam Novoa HbA1c (Bld) [Mass fraction] 8.6 % Critically high 4.5-6.2 [facility] Comment on above: Performed By: #### A 1C #### [facility] [address] [place] [address] Dr. Willam Novoa PROF 14(COMP METB)on 022 Albumin [Mass/Vol] 4.1 g/dL Normal 3.4-5.0 [facility] Comment on above: Performed By: #### T SAVANNAH, CMP #### [facility] [address] [place] [address] Dr. Willam Novoa Albumin/Globulin [Mass ratio] 1.2 {ratio} Normal [facility] Comment on above: Performed By: #### T SAVANNAH, CMP #### [facility] [address] [place] [address] Dr. Willam Novoa ALP [Catalytic activity/Vol] 121 U/L Critically high 46-116 [facility] Comment on above: Performed By: #### T SAVANNAH, CMP #### [facility] [address] [place] [address] Dr. Willam Novoa ALT [Catalytic activity/Vol] 31 U/L Normal 14-59 [facility] Comment on above: Performed By: #### T SAVANNAH, CMP #### [facility] [address] [address] [address] Willam Novoa Anion gap [Moles/Vol] 15.9 mmol/L Normal Th [facility] Comment on above: Performed By: #### T SAVANNAH, CMP #### [facility] [address] [place] [address] Dr. Willam Novoa AST [Catalytic activity/Vol] 13 U/L Critically low 15-37 [facility] Comment on above: Performed By: #### T SAVANNAH, CMP #### [facility] [address] [place] [address] Dr. Willam Novoa Bilirubin [Mass/Vol] 0.4 mg/dL Normal 0.2-1.0 [facility] Comment on above: Performed By: #### T SAVANNAH, CMP #### [facility] [address] [place] [address] Dr. Willam Novoa Calcium [Mass/Vol] 9.3 mg/dL Normal 8.5-10.1 [facility] Comment on above: Performed By: #### T SAVANNAH, CMP #### [facility] [address] [place] [address] Dr. Willam Novoa Chloride [Moles/Vol] 103 mmol/L Normal 98-107 [facility] Comment on above: Performed By: #### T SAVANNAH, CMP #### [facility] [address] [place] [address] Dr. Willam Novoa CO2 [Moles/Vol] 27.1 mmol/L Normal 21.0-32.[address] [facility] Comment on above: Performed By: #### T SAVANNAH, CMP #### [facility] [address] [place] [address] Dr. Willam Novoa Creatinine [Mass/Vol] 0.74 mg/dL Normal 0.55-1.02 [facility] Comment on above: Performed By: #### T SAVANNAH, CMP #### [facility] [address] [place] [address] Dr. Willam Novoa EGFR-AF ANDORRAN >60 Normal >=[address] [facility] Comment on above: Performed By: #### T SAVANNAH, CMP #### [facility] [address] [place] [address] Dr. Willam Novoa EGFR-NON AF ANDORRAN >60 Normal >=60 [facility] Comment on above: Performed By: #### T SH, CMP #### [facility] [address] [address] [address] Willam Novoa Globulin (S) [Mass/Vol] 3.3 g/dL Normal [facility] Comment on above: Performed By: #### T SH, CMP #### [facility] [address] [address] [address] Willam Novoa Glucose [Mass/Vol] 194 mg/dL Critically high 74-106 [facility] Comment on above: Performed By: #### T SAVANNAH, CMP #### [facility] [address] [place] [address] Dr. Willam Novoa Potassium [Moles/Vol] 4.0 mmol/L Normal 3.5-5.1 [facility] Comment on above: Performed By: #### T SAVANNAH, CMP #### [facility] [address] [place] [address] Dr. Willam Novoa Protein [Mass/Vol] 7.4 g/dL Normal 6.4-8.2 [facility] Comment on above: Performed By: #### T SAVANNAH, CMP #### [facility] [address] [place] [address] Dr. Willam Novoa Sodium [Moles/Vol] 142 mmol/L Normal 136-145 [facility] Comment on above: Performed By: #### T SAVANNAH, CMP #### [facility] [address] [place] [address] Dr. Willam Novoa Urea nitrogen [Mass/Vol] 19.0 mg/dL Critically high 7.0-18.0 [facility] Comment on above: Performed By: #### T SAVANNAH, CMP #### [facility] [address] [place] [address] Dr. Willam Novoa Urea nitrogen/Creatinine [Mass ratio] 25.7 mg/mg Normal [facility] Comment on above: Performed By: #### T SAVANNAH, CMP #### [facility] [address] [address] [address] Willam Novoa TSHon 05-24-2022 TSH 1.350 uIU/mL Normal 0.358-3.740 [facility] Comment on above: Performed By: #### T , [facility] #### [facility] [address] [address] [address] Willam Novoa XR cervical spine 2Von 10-19 XR cervical spine 2V [facility] [place] [address] [place] [address] XRay Report Signed Patient: Dionne Arreola MR#: [id number] 47 : 1955 Acct:[id number] Age/Sex: 65 / F ADM Date: 10/19/21 Loc: XD Room: Type: [facility] Attending Dr: Yash Caban MD Ordering Provider: [...] Juno Yo M.D.10/19/2021 1:23 PM Dictation Location: [place] [address] Transcribed By: [facility] 10/19/21 1323 Dictated By: Juno Yo DO 10/19/21 1319 Signed By: 10/19/21 1323 Normal [facility] Glucose Poct Glucometerson 1 11-21-2020 Commemt1 Glu2: Cleaned Meter Normal [facility] Comment on above: Result Comment: PERF ORMED BY: [address] [place] [id number] PATHOLOGIST SUPERVISOR [employer] YUE CONWAY M.D. Performed By: #### G LULS ####Point of Care testing, Glucose [Mass/Vol] 167 mg/dL Normal [facility] Comment on above: Result Comment: [place] om Glucose Reference Range is dependent on time and content of last meal. Glucose of more than 200 mg/dL in a nonstressed, ambulatory subject supports the diagnosis of Diabetes Mellitus. Performed By: #### G LULS ####Point of Care testing, Glucose Poct Glucometerson 1 11-20-2020 Glucose [Mass/Vol] 294 mg/dL Normal [facility] Comment on above: Result Comment: [place] om Glucose Reference Range is dependent on time and content of last meal. Glucose of more than 200 mg/dL in a nonstressed, ambulatory subject supports the diagnosis of Diabetes Mellitus. PERFORMED BY: [address] [place] [address] PATHOLOGIST SUPERVISOR [employer] Y[employer] CONWAY M.D. Performed By: #### G LULS #### Point of Care testing , Commemt1 Glu2: Cleaned Meter [facility] Comment on above: Result Comment: PERF ORMED BY: [address] [place] [id number] PATHOLOGIST SUPERVISOR [employer] Y[employer] CONWAY M.D. Performed By: #### G LULS #### Point of Care testing , Glucose [Mass/Vol] 205 mg/dL Normal [facility] Comment on above: Result Comment: [place] om Glucose Reference Range is dependent on time and content of last meal. Glucose of more than 200 mg/dL in a nonstressed, ambulatory subject supports the diagnosis of Diabetes Mellitus. Performed By: #### G LULS #### Point of Care testing , Commemt1 Glu2: Cleaned Meter Normal [facility] Comment on above: Result Comment: PERF ORMED BY: [address] [place] [id number] PATHOLOGIST SUPERVISOR [employer] CONWAY M.D. Performed By: #### G LULS #### Point of Care testing , Glucose [Mass/Vol] 186 mg/dL Normal [facility] Comment on above: Result Comment: [place] [facility] Glucose Reference Range is dependent on time and content of last meal. Glucose of more than 200 mg/dL in a nonstressed, ambulatory subject supports the diagnosis of Diabetes Mellitus. Performed By: #### G LULS #### Point of Care testing , Glucose [Mass/Vol] 175 mg/dL Normal [facility] Comment on above: Result Comment: [place] om Glucose Reference Range is dependent on time and content of last meal. Glucose of more than 200 mg/dL in a nonstressed, ambulatory subject supports the diagnosis of Diabetes Mellitus. PERFORMED BY: [place] [address] PATHOLOGIST SUPERVISOR [employer] Y[employer] CONWAY M.D. Performed By: #### G LULS #### Point of Care testing , XR cervical spine 1Von 09-19 XR cervical spine 1V [facility] [place] [id number] XRay Report Signed Patient: Dionne Arreola MR#: [id number] 47 : 1955 Acct:[id number] Age/Sex: 65 / F ADM Date: 09/19/21 Loc: 4N Room: [address] [place] [address] Type: [facility] Attending Dr: Yash Caban MD Ordering [...] Danna Holloway M.D.09/19/2021 3:58 PM Dictation Location: [place] [address] Transcribed By: [facility] 09/19/21 1558 Dictated By: Danna Holloway MD 09/19/21 1556 Signed By: 09/19/21 1558 Normal [facility] COVID-19 [facility] 09-[facility] SARS-CoV-2 (COVID-19) RNA WESTLEY+probe Ql (Unsp spec) Negative Normal Negative [facility] Comment on above: Order Comment: 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 This test has not been FDA cleared [...] is terminated or revoked sooner. PERFORMED BY: [address] [id number] PATHOLOGIST SUPERVISOR DETASSELING CREW YUE CONWAY M.D. Performed By: #### C OVID 19 [facility] #### [facility] [address] [place] [id number] [facility] Basic Metabolic Panelon 12-0 Calcium [Mass/Vol] 10.2 mg/dL Normal 8.2-10.2 [facility] Comment on above: Result Comment: PERF ORMED BY: [address] [address] PATHOLOGIST SUPERVISOR [employer]ASSELING [employer]W YUE CONWAY M.D. Performed By: #### B MP, CBC #### [facility] [address] [place] [address] [place] Chloride [Moles/Vol] 102 mmol/L Normal 95-114 [facility] Comment on above: Performed By: #### B MP, CBC #### [facility] [address] CO2 [Moles/Vol] 26.8 mmol/L Normal 22.0-30.0 [facility] Comment on above: Performed By: #### B MP, CBC #### [facility] [address] Creatinine [Mass/Vol] 0.89 mg/dL Normal 0.44-1.03 [facility] Comment on above: Performed By: #### B MP, CBC #### [facility] [address] Estimated GFR ( Cindy > 60 [facility] Comment on above: Result Comment: GFR estimated reference range: According to KDOQI guidelines, <60 ml/min/1.73m2 is sufficient to diagnose a patient with chronic kidney disease. Performed By: #### B MP, CBC #### [place] [address] [place] Estimated GFR (Non- Am > 60 Normal [facility] Comment on above: Performed By: #### B MP, CBC #### [place] [address] [place] Glucose [Mass/Vol] 165 mg/dL High 70-100 [facility] Comment on above: Result Comment: [place] Glucose Reference Range is dependent on time and content of last meal. Glucose of more than 200 mg/dL in a nonstressed, ambulatory subject supports the diagnosis of Diabetes Mellitus. ADA recommended reference range Performed By: #### B MP, CBC #### [facility] [address] [place] [address] [place] Potassium [Moles/Vol] 4.3 mmol/L Normal 3.5-5.1 [facility] Comment on above: Performed By: #### B MP, CBC #### [facility] [address] [place] [id number] [place] Sodium [Moles/Vol] 139 mmol/L Normal 136-146 [facility] Comment on above: Performed By: #### B MP, CBC #### [facility] [address] Urea nitrogen [Mass/Vol] 20 mg/dL Normal 9- [facility] Comment on above: Performed By: #### B MP, CBC #### [facility] [address] Complete Blood Count Auto Di ffon 09-06-2021 Basophils (Bld) [#/Vol] 0.1 10*3/uL Normal 0.0-0.2 [facility] Comment on above: Result Comment: PERF ORMED BY: [place] [address] PATHOLOGIST SUPERVISOR DETASSELING [employer]W YUE CONWAY M.D. Performed By: #### B MP, CBC #### [facility] [address] [place] [address] Basophils/100 WBC (Bld) 0.9 % Normal . F [facility] Comment on above: Performed By: #### B MP, CBC #### [facility] [address] [place] [address] Eosinophils (Bld) [#/Vol] 0.2 10*3/uL Normal 0.0-0.45 [facility] Comment on above: Performed By: #### B MP, CBC #### [facility] [address] [place] [address] Eosinophils/100 WBC (Bld) 2.1 % Normal . [facility] Comment on above: Performed By: #### B MP, CBC #### [address] Erythrocyte distribution width (RBC) [Ratio] 13.8 % Normal 11.9-15.3 [facility] Comment on above: Performed By: #### B MP, CBC #### [facility] [address] [place] [address] Hematocrit (Bld) [Volume fraction] 43.7 % Normal 34.0-46.4 [facility] Comment on above: Performed By: #### B MP, CBC #### [facility] [address] Hemoglobin (Bld) [Mass/Vol] 14.5 g/dL Normal 11.8-15.4 [facility] Comment on above: Performed By: #### B MP, CBC #### [facility] [address] Lymphocytes (Bld) [#/Vol] 2.7 10*3/uL Normal 1.00-4.8 [facility] Comment on above: Performed By: #### B MP, CBC #### [facility] [address] Lymphocytes/100 WBC (Bld) 31.0 % Normal . [facility] Comment on above: Performed By: #### B MP, CBC #### [address] MCH (RBC) [Entitic mass] 30.5 pg Normal 24.7-34.3 [facility] Comment on above: Performed By: #### B MP, CBC #### [address] MCV (RBC) [Entitic vol] 92.1 fL Normal 80-100 F [facility] Comment on above: Performed By: #### B MP, CBC #### [address] Mean Corpuscular HGB Conc 33.1 g/dL Normal 32.0-35.0 [facility] Comment on above: Performed By: #### B MP, CBC #### [facility] [address] [place] [address] [place] Monocytes (Bld) [#/Vol] 0.9 10*3/uL High 0.0-0.8 [facility] Comment on above: Performed By: #### B MP, CBC #### [facility] [address] [place] [address] [place] Monocytes/100 WBC (Bld) 9.6 % Normal . [facility] Comment on above: Performed By: #### B MP, CBC #### [address] [place] [address] [place] Neutrophils (Bld) [#/Vol] 5.0 10*3/uL Normal 1.8-7.7 [facility] Comment on above: Performed By: #### B MP, CBC #### [facility] [address] [place] [id number] [place] Neutrophils/100 WBC (Bld) 56.4 % Normal . [facility] Comment on above: Performed By: #### B MP, CBC #### [facility] [address] [place] [address] [place] Nucleated RBC/100 WBC (Bld) [Ratio] 0.1 % Normal 0-0.5 [facility] Comment on above: Performed By: #### B MP, CBC #### [facility] [address] [place] [address] [place] Platelet mean volume (Bld) [Entitic vol] 7.6 fL Normal 6.3-10.7 [facility] Comment on above: Performed By: #### B MP, CBC #### [facility] [address] [place] [address] [place] Platelets (Bld) [#/Vol] 308 10*3/uL Normal 150-450 [facility] Comment on above: Performed By: #### B MP, CBC #### [facility] [address] [place] [address] [place] RBC (Bld) [#/Vol] 4.74 10*6/uL Normal 3.60-5.00 [facility] Comment on above: Performed By: #### B MP, CBC #### [facility] [address] [place] [address] [place] WBC (Bld) [#/Vol] 8.9 10*3/uL Normal 4.5-11.0 [facility] Comment on above: Performed By: #### B MP, CBC #### [facility] [address] [place] [id number] [place] ECG 12 lead ECGon 09-06-2021 ECG 12 lead ECG [facility] [place] [address] [place] [address] Electrocardiograph Report Signed Patient: Dionne Arreola MR#: [id number] [birth year] : 1955 Acct:[id number] Age/Sex: 65 / F ADM Date: 09/06/21 Loc: PS Room: Type: [facility] Attending Dr: Yash Caban MD Ordering Provider: [...] Signed By Marlen Genao DO 09/06 1600 [facility] XR cerv spine AP/LAT/FLX/EXT on 08-12-2021 XR cerv spine AP/LAT/FLX/EXT [facility] [place] [address] XRay Report Signed Patient: Dionne Arreola MR#: [id number] [birth year] : 1955 Acct:[id number] Age/Sex: 65 / F ADM Date: 08/12/21 Loc: XD Room: Type: [facility] Attending Dr: Yash Caban MD Ordering Provider: [...] Dye Jr., M.D.08/12/2021 2:35 PM Dictation Location: [place] [address] Transcribed By: [facility] 08/12/21 1435 Dictated By: Milton Dye Jr, MD 08/12/21 1433 Signed By: 08/12/21 1435 [facility] Vital Signs Date Time Vital Sign Value Performing Clinician Facility 07-13-2024 17:43-0400 Body height 160 cm Judi Beckhambarb DIRECTOR EMERGENCY Work Phone: [facility] 07-13-2024 17:43-0400 Body mass index (BMI) [Ratio] 36 kg/m2 Judi Beckhambarb DIRECTOR EMERGENCY Work Phone: [facility] 07-13-2024 17:43-0400 Body temperature 97.5 [degF] Judi Beckhambarb DIRECTOR EMERGENCY Work Phone: [facility] 07-13-2024 17:43-0400 Body weight 92.17 kg Judi Beckhambarb DIRECTOR EMERGENCY Work Phone: [facility] 07-13-2024 17:43-0400 Diastolic blood pressure 82 mm[Hg] Judi Beckhambarb DIRECTOR EMERGENCY Work Phone: [facility] 07-13-2024 17:43-0400 Heart rate 97 /min Judi Beckhambarb DIRECTOR EMERGENCY Work Phone: [facility] 07-13-2024 17:43-0400 Respiratory rate 18 /min Judi Dotsontroy DIRECTOR EMERGENCY Work Phone: [facility] 07-13-2024 17:43-0400 SaO2% (BldA) [Mass fraction] 98 % Judi Tony DIRECTOR EMERGENCY Work Phone: [facility] 07-13-2024 17:43-0400 Systolic blood pressure 124 mm[Hg] Judi Beckhambarb DIRECTOR EMERGENCY Work Phone: [facility] 12-18-2021 11:00-0400 Body height 165.1 cm Yash Caban Other [employer] Other 12-18-2021 11:00-0400 Body mass index (BMI) [Ratio] 36.27 kg/m2 Yash Caban Other [employer] Other 12-18-2021 11:00-0400 Body weight 98.88 kg Yash Caban Other [employer] Other 08-12-2021 14:00-0500 Body height 165.1 cm Yash Caban Other [employer] Other 08-12-2021 14:00-0500 Body mass index (BMI) [Ratio] 36.27 kg/m2 Yash Caban Other [employer] Other 08-12-2021 14:00-0500 Body weight 98.88 kg Yash Caban Other [employer] Other 08-12-2021 14:00-0500 Diastolic blood pressure 79 mm[Hg] Yash Caban Other [employer] Other 08-12-2021 14:00-0500 Systolic blood pressure 130 mm[Hg] Yash Caban Other [employer] Other Encounters Encounter Date Encounter Type Care Provider Facility Start: 08-02-2024 End: 08-02-2024 Orders Only Judi Norbertz DIRECTOR EMERGENCY Work Phone: [facility] Comment on above: Urinary frequency (P rimary Dx) Start: 07-25-2024 End: 07-25-2024 Orders Only Judi Norbertz DIRECTOR EMERGENCY Work Phone: [facility] Comment on above: Hemoptysis (Primary Dx); Lung nodule seen on imaging study Start: 07-20-2024 End: 07-20-2024 Refill Judi Norbertz DIRECTOR EMERGENCY Work Phone: [facility] Comment on above: 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) Start: 07-18-2024 End: 07-18-2024 Refill Judi Aickarlaz DIRECTOR EMERGENCY Work Phone: [facility] Comment on above: Chronic pain of righ t knee (Primary Dx); Leukocytosis, unspecified type Chronic pain of righ t knee (Primary Dx) Start: 07-13-2024 End: 07-13-2024 Office outpatient visit 25 minutes Judirico Jimenez DIRECTOR EMERGENCY Work Phone: [facility] Comment on above: Type 2 diabetes nicanor itus with insulin therapy (CMS/HCC) (Primary Dx); Primary hypertension (CMS/HCC); Hemoptysis; Chronic pain of right knee; 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); Obesity (BMI 30-39.9) Start: 07-13-2024 End: 07-13-2024 ambulatory JUDI AICHHOLZ Not Available Start: 07-13-2024 End: 07-13-2024 Bamboo flowsheet Judi Norbertz DIRECTOR EMERGENCY Work Phone: [facility] Start: 07-13-2024 End: 07-13-2024 Bamboo flowsheet Judi Aichholz DIRECTOR EMERGENCY Work Phone: [facility] Start: 04-18-2024 End: 04-18-2024 ambulatory JUDI AICHHOLZ Not Available Start: 03-07-2024 End: 03-07-2024 ambulatory JUDI AICHHOLZ Not Available Start: 12-28-2023 End: 12-28-2023 ambulatory JUDIRico DOTSONHHOLZ Not Available Start: 12-28-2023 Patient encounter procedure Karishma Jimenez DIRECTOR EMERGENCY Work Phone: [facility] Start: 11-23-2023 End: 11-23-2023 ambulatory JUDI DOTSONHHOLZ Not Available Start: 11-13-2023 Refill Judi Beckhamholz DIRECTOR EMERGENCY Work Phone: [facility] Comment on above: Gastroesophageal ref lux disease without esophagitis (Primary Dx) Start: 09-11-2023 End: 09-12-2023 ambulatory JUDI JIMENEZ Facility:[facility] Start: 09-11-2023 End: 09-11-2023 Patient encounter procedure JUDI JIMENEZ [facility] Start: 06-03-2023 End: 07-18-2023 Pre-admission assessment JUDI JIMENEZ [facility] Start: 01-17-2023 End: 01-18-2023 ambulatory [employer] INS[employer] REPAIRER JUDI BECKHAMHOLZ Facility:[facility] Start: 12-27-2022 End: 12-28-2022 ambulatory ELEANOR BECKHAMHOLZ Facility:[facility] Start: 05-27-2022 Encounter for genera l adult medical examination without abnormal findings DR CELIA YI [facility] Start: 05-24-2022 End: 05-25-[address] CELIA YI Facility:[facility] Start: 05-24-2022 End: 05-25-2022 Encounter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 General Family Medicine 10/30/23 Jamir Hare MD [address] [place] [address] PCP - Devoted 01/04/24 Judi Jimenez NP [address] [place] [address] Nurse Practitioner Family Medicine 10/05/22 FOR RECORDS [...] BE BASED ON THE PRIMARY CLINICAL RECORDS. [employer] [facility]. provides no warranty or guarantee of the accuracy or completeness of information in this document.
[2024-08-04 07:21] LABS: Bilirubin Urine NEGATIVE (NEGATIVE); Blood Urine SMALL (NEGATIVE); Clarity Urine CLEAR (CLEAR); Color Urine LT. RED (YELLOW); Glucose Urine UA >=1000 mg/dL (NEGATIVE); Ketones Urine NEGATIVE (NEGATIVE); Leukocyte Esterase Urine MODERATE (NEGATIVE); Nitrite Urine NEGATIVE (NEGATIVE); Protein Urine NEGATIVE (NEG/TRACE); Specific Gravity Urine <=1.005 (1.005-1.025); Urobilinogen Urine 0.2 EU/dL (0.2-1.0); pH Urine 6.5 (5.0-9.0)
[2024-08-04 07:26] LABS: Urine Microscopic Indicated YES
[2024-08-04 07:28] LABS: Bacteria Urine SMALL #/HPF (NONE SEEN); Cast Seen? NONE SEEN #/LPF (NONE SEEN); Crystals Seen? None Seen #/HPF (None Seen); Mucus Urine NONE SEEN (NONE SEEN); Squamous Epithelial Cell Urine RARE #/LPF (NONE/RARE); Urine Culture Indicated ALREADY ORDERED; WBC Urine 20-50 #/HPF (NONE SEEN)
== END 2024-08-04 06:17 | disposition home or self-care (01) ==
LOC: LAB 06:18
PROVIDERS: PCP Nurse Practitioner; Visit Provider Nurse Practitioner
DX: R35.0 Frequency of micturition (principal)
CPT/HCPCS: 81001; 87086; 87150; 87186

== ENCOUNTER 2024-09-02 07:59 | Outpatient (OUT) | payer OTHER, SELFPAY ==
--- NOTE | 2024-09-02 | NM_ITS ---
[place] [id number] Patient Name: VANI KAUFFMAN MRN: [id number] date: 1955 Sex: F Assigned Patient Location: MD Current Patient Location: Accession/Order Number: [id number] Exam Date: 09/02/2024 08:00 Report Date: 09/05/2024 06:32 At the request of: JUAN Ross APLING Procedure: MD bone 3 phase EXAMINATION: MD bone 3 phase HISTORY: STATUS POST RIGHT KNEE REPLACEMENT, RIGHT KNEE PAIN COMPARISON: No relevant comparison available. TECHNIQUE: 24.0 mCi Technetium 99m MDP was injected intravenously followed by acquisition of dynamic flow, immediate blood pool, and delayed static images. FINDINGS: IMAGED AREA: Bilateral knees FLOW PHASE: Minimally greater flow within the right leg compared to left. BLOOD POOL PHASE: Normal. DELAYED IMAGES: Mild radiotracer uptake surrounding the prosthetic components of the right knee; not unexpected. Increased radiotracer activity within the left knee, likely due to degenerative changes. OTHER: Negative. MD/MD bone 3 phase IMPRESSION: 1. Mild radiotracer activity surrounding the right knee prosthetic components consistent with chronic remodeling; not unexpected. No specific findings to suggest loosening. 2. Suspect degenerative changes of the left knee. No prior radiographs of the left knee. Electronically authenticated by: LARISSA MARTIN Date: 09/05/2024 06:32
--- OUTSIDE RECORDS SUMMARY | 2024-09-02 08:02 | XMS_ITS | CCD ---
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 Globulin (S) [Mass/Vol] 4.0 g/dL Normal [facility] Comment on above: Performed By: #### C BC #### [facility] [address] [place] [address] Dr. Willam Novoa Protein [Mass/Vol] 7.4 g/dL Normal 6.4-8.2 [facility] Comment on above: Performed By: #### C BC #### [facility] [address] [address] [address] Willam Novoa CBC AUTO DIFFon 12-27-2022 BASO # 0.1 103/ul Normal 0.0-0.1 [facility] Comment on above: Performed By: #### C BC #### [facility] [address] [place] [address] Dr. Willam Novoa Basophils/100 WBC (Bld) 1.0 % Normal 0.2-2.0 [facility] Comment on above: Performed By: #### C BC #### [facility] [address] [place] [address] Dr. Willam Novoa EO # 0.3 103/ul Normal 0.0-0.7 [facility] Comment on above: Performed By: #### C BC #### [facility] [address] [place] [address] Dr. Willam Novoa Eosinophils/100 WBC (Bld) 3.6 % Normal 0.9-7.0 [facility] Comment on above: Performed By: #### C BC #### [facility] [address] [place] [address] Dr. Willam Novoa Erythrocyte distribution width (RBC) [Ratio] 13.2 % Normal 11.0-15.0 [facility] Comment on above: Performed By: #### C BC #### [facility] [address] [place] [address] Dr. Willam Novoa Hematocrit (Bld) [Volume fraction] 45.4 % Normal 36.0-48.0 [facility] Comment on above: Performed By: #### C BC #### [facility] [address] [place] [address] Dr. Willam Novoa Hemoglobin (Bld) [Mass/Vol] 14.4 g/dL Normal 12.0-16.0 [facility] Comment on above: Performed By: #### C BC #### [facility] [address] [place] [address] Dr. Willam Novoa IG # 0.03 10e3/ul Normal 0.00-0.03 [facility] Comment on above: Performed By: #### C BC #### [facility] [address] [place] [address] Dr. Willam Novoa IG % 0.4 % Normal 0.0-0.5 [facility] Comment on above: Performed By: #### C BC #### [facility] [address] [place] [address] Dr. Willam Novoa LYMPH # 2.5 103/ul Normal 1.2-3.8 [facility] Comment on above: Performed By: #### C BC #### [facility] [address] [place] [address] Dr. Willam Novoa Lymphocytes/100 WBC (Bld) 29.9 % Normal 20.5-60.0 [facility] Comment on above: Performed By: #### C BC #### [facility] [address] [place] [address] Dr. Willam Novoa MANUAL DIFF REQ NO Normal [facility] Comment on above: Performed By: #### C BC #### [facility] [address] [place] [address] Dr. Willam Novoa MCH (RBC) [Entitic mass] 29.9 pg Normal 26.7-34.0 [facility] Comment on above: Performed By: #### C BC #### [facility] [address] [place] [address] Dr. Willam Novoa MCHC (RBC) [Mass/Vol] 31.7 g/dL Normal 29.9-35.2 [facility] Comment on above: Performed By: #### C BC #### [facility] [address] [place] [address] Dr. Willam Novoa MCV (RBC) [Entitic vol] 94.4 fL Normal 81.0-99.0 [facility] Comment on above: Performed By: #### C BC #### [facility] [address] [place] [address] Dr. Willam Novao MONO # 0.8 103/ul Normal 0.3-0.8 [facility] Comment on above: Performed By: #### C BC #### [facility] [address] [place] [address] Dr. Willam Novoa Monocytes/100 WBC (Bld) 9.2 % Normal 1.7-12.0 [facility] Comment on above: Performed By: #### C BC #### [facility] [address] [place] [address] Dr. Willam Novoa NEUT # 4.7 103/ul Normal 1.4-6.5 [facility] Comment on above: Performed By: #### C BC #### [facility] [address] [place] [address] Dr. Willam Novoa Neutrophils/100 WBC (Bld) 55.9 % Normal 43.0-75.0 [facility] Comment on above: Performed By: #### C BC #### [facility] [address] [place] [address] Dr. Willam Novoa Platelet mean volume (Bld) [Entitic vol] 9.4 fL Critically low 9.5-13.5 [facility] Comment on above: Performed By: #### C BC #### [facility] [address] [place] [address] Dr. Willam Novoa PLT 311 103/ul Normal 150-450 [facility] Comment on above: Performed By: #### C BC #### [facility] [address] [place] [address] Dr. Willam Novoa RBC 4.81 106/ul Normal 4.20-5.40 [facility] Comment on above: Performed By: #### C BC #### [facility] [address] [place] [address] Dr. Willam Novoa WBC 8.4 103/ul Normal 4.0-11.0 [facility] Comment on above: Performed By: #### C BC #### [facility] [address] [place] [address] Dr. Willam Novoa FREE T4on 12-27-2022 Free T4 [Mass/Vol] 1.13 ng/dL Normal 0.76-1.46 [facility] Comment on above: Performed By: #### C BC #### [facility] [address] [place] [address] Dr. Willam Novoa GLYCOHEMOGLOBIN A1Con 2022 ADA RECOMMENDATION SEE BELOW Normal [facility] Comment on above: Result Comment: ADA RECOMMENDED LIMIT 4.0 - 6.0 ADA THERAPEUTIC TARGET < 7.0 ACTION SUGGESTED > 7.0 Performed By: #### C BC #### [facility] [address] [address] [address] Willam Novoa Glucose [Mass/Vol] 258 mg/dL Normal [facility] Comment on above: Performed By: #### C BC #### [facility] [address] [place] [address] Dr. Willam Novoa HbA1c (Bld) [Mass fraction] 10.6 % Critically high 4.5-6.2 [facility] Comment on above: Performed By: #### C BC #### [facility] [address] [place] [address] Dr. Willam Novoa LIPID PROFILEon 12-27-2022 CHOL-HDL RATIO NORM SEE BELOW Normal [facility] Comment on above: Result Comment: 3.3 - 4.4 LOW RISK 4.4 - 7.1 AVERAGE RISK 7.1 - 11.0 MODERATE RISK >11.0 HIGH RISK Performed By: #### C BC #### [facility] [address] [place] [address] Dr. Willam Novoa Cholesterol [Mass/Vol] 158 mg/dL Normal <=200 [facility] Comment on above: Performed By: #### C BC #### [facility] [address] [place] [address] Dr. Willam Novoa Cholesterol in HDL [Mass/Vol] 51 mg/dL Normal 40-60 [facility] Comment on above: Performed By: #### C BC #### [facility] [address] [place] [address] Dr. Willam Novoa Cholesterol in LDL [Mass/Vol] 81.8 mg/dL Normal [facility] Comment on above: Performed By: #### C BC #### [facility] [address] [place] [address] Dr. Willam Novoa Cholesterol.total/Xiomy sterol in HDL [Mass ratio] 3.1 {ratio} Normal [facility] Comment on above: Performed By: #### C BC #### [facility] [address] [address] [address] Willam Novoa HDL NORMAL > or = 60 mg/dl - LOW CARDIOVASCULAR RISK <40 mg/dl - HIGH CARDIOVASCULAR RISK Normal [facility] Comment on above: Performed By: #### C BC #### [facility] [address] [address] [address] Willam Novoa LDL CALC NORMAL SEE BELOW Normal [facility] Comment on above: Result Comment: <100 mg/dl OPTIMAL 100 - 129 mg/dl NEAR OR ABOVE OPTIMAL 130 - 159 mg/dl BORDERLINE HIGH 160 - 189 mg/dl HIGH >190 mg/dl VERY HIGH Performed By: #### C BC #### [facility] [address] [place] [address] Dr. Willam Novoa Triglyceride [Mass/Vol] 126 mg/dL Normal <=150 [facility] Comment on above: Performed By: #### C BC #### [facility] [address] [address] [address] Willam Novoa VLDL CALC 25.2 mg/dL Normal [facility] Comment on above: Performed By: #### C BC #### [facility] [address] [place] [address] Dr. Willam Novoa MICROALBUMIN, RAND URon 12-04 mALB 1.3 mg/L Normal <=30.0 [facility] Comment on above: Performed By: #### M ALBR #### [facility] [address] [address] [address] Willam Novoa PROF 14(COMP METB)on 023 Albumin [Mass/Vol] 3.9 g/dL Normal 3.4-5.0 [facility] Comment on above: Performed By: #### C MP, LIPID, TSH #### [facility] [address] [address] [address] Willam Novoa Albumin/Globulin [Mass ratio] 1.0 {ratio} Normal [facility] Comment on above: Performed By: #### C MP, LIPID, TSH #### [facility] [address] [address] [address] Willam Novoa ALP [Catalytic activity/Vol] 161 U/L Critically high 46-116 [facility] Comment on above: Performed By: #### C MP, LIPID, TSH #### [facility] [address] [address] [address] Willam Novoa ALT [Catalytic activity/Vol] 29 U/L Normal 14-59 [facility] Comment on above: Performed By: #### C MP, LIPID, TSH #### [facility] [address] [address] [address] Willam Novoa Anion gap [Moles/Vol] 10.7 mmol/L Normal [facility] Comment on above: Performed By: #### C MP, LIPID, TSH #### [facility] [address] [address] [address] Willam Novoa AST [Catalytic activity/Vol] 10 U/L Critically low 15-37 [facility] Comment on above: Performed By: #### C MP, LIPID, TSH #### [facility] [address] [address] [address] Willam Novoa Bilirubin [Mass/Vol] 0.3 mg/dL Normal 0.2-1.0 [facility] Comment on above: Performed By: #### C MP, LIPID, TSH #### [facility] [address] [address] [address] Willam Novoa Calcium [Mass/Vol] 9.4 mg/dL Normal 8.5-10.1 [facility] Comment on above: Performed By: #### C MP, LIPID, TSH #### [facility] [address] [address] [address] Willam Novoa Chloride [Moles/Vol] 103 mmol/L Normal 98-107 [facility] Comment on above: Performed By: #### C MP, LIPID, TSH #### [facility] [address] [address] [address] Willam Novoa CO2 [Moles/Vol] 28.3 mmol/L Normal 21.0-32.0 [facility] Comment on above: Performed By: #### C MP, LIPID, TSH #### [facility] [address] [address] [address] Willam Novoa Creatinine [Mass/Vol] 0.72 mg/dL Normal 0.55-1.02 [facility] Comment on above: Performed By: #### C MP, LIPID, TSH #### [facility] [address] [address] [address] Willam Novoa EGFR-AF TAJIK >60 Normal >=60 [facility] Comment on above: Performed By: #### C MP, LIPID, TSH #### [facility] [address] [address] [address] Willam Novoa EGFR-NON AF TAJIK >60 Normal >=60 [facility] Comment on above: Performed By: #### C MP, LIPID, TSH #### [facility] [address] [address] [address] Willam Novoa Globulin (S) [Mass/Vol] 3.8 g/dL Normal [facility] Comment on above: Performed By: #### C MP, LIPID, TSH #### [facility] [address] [address] [address] Willam Novoa Glucose [Mass/Vol] 287 mg/dL Critically high 74-106 [facility] Comment on above: Performed By: #### C MP, LIPID, TSH #### [facility] [address] [address] [address] Willam Novoa Potassium [Moles/Vol] 4.0 mmol/L Normal 3.5-5.1 [facility] Comment on above: Performed By: #### C MP, LIPID, TSH #### [facility] [address] [address] [address] Willam Novoa Protein [Mass/Vol] 7.7 g/dL Normal 6.4-8.2 [facility] Comment on above: Performed By: #### C MP, LIPID, TSH #### [facility] [address] [address] [address] Willam Novoa Sodium [Moles/Vol] 138 mmol/L Normal 136-145 [facility] Comment on above: Performed By: #### C MP, LIPID, TSH #### [facility] [address] [place] [address] Dr. Willam Novoa Urea nitrogen [Mass/Vol] 13.0 mg/dL Normal 7.0-18.0 [facility] Comment on above: Performed By: #### C MP, LIPID, TSH #### [facility] [address] [place] [address] Dr. Willam Novoa Urea nitrogen/Creatinine [Mass ratio] 18.1 mg/mg Normal [facility] Comment on above: Performed By: #### C MP, LIPID, TSH #### [facility] [address] [place] [address] Dr. Willam Novoa TSHon 12-27-2022 TSH 1.361 uIU/mL Normal 0.358-3.740 [facility] Comment on above: Performed By: #### C MP, LIPID, TSH #### [facility] [address] [place] [address] Dr. Willam Novoa UA RANDOM W/MICROSCOPICon BACTERIA NONE SEEN Normal NONE SEEN [facility] Comment on above: Performed By: #### U AMIC #### [facility] [address] [place] [address] Dr. Willam Novoa Bilirubin Ql (U) Negative Normal NEGATIVE [facility] Comment on above: Performed By: #### U AMIC #### [facility] [address] [place] [address] Dr. Willam Novoa CAST NONE SEEN Normal NONE SEEN [facility] Comment on above: Performed By: #### U AMIC #### [facility] [address] [place] [address] Dr. Willam Novoa Clarity (U) CLEAR Normal CLEAR [facility] Comment on above: Performed By: #### U AMIC #### [facility] [address] [place] [address] Dr. Willam Novoa Color (U) LT. YELLOW Normal YELLOW [facility] Comment on above: Performed By: #### U AMIC #### [facility] [address] [address] [address] Willam Novoa Crystals LM Nom (Urine sed) NONE SEEN Normal NONE SEEN [facility] Comment on above: Performed By: #### U AMIC #### [facility] [address] [address] [address] Willam Novoa Epithelial cells LM Ql (Urine sed) RARE Normal NONE SEEN /RARE [facility] Comment on above: Performed By: #### U AMIC #### [facility] [address] [address] [address] Willam Novoa Glucose Ql (U) >1000 Abnormal NEGATIVE [facility] Comment on above: Performed By: #### U AMIC #### [facility] [address] [address] [address] Willam Novoa Hemoglobin Ql (U) Negative Normal NEGATIVE [facility] Comment on above: Performed By: #### U AMIC #### [facility] [address] [address] [address] Willam Novoa Ketones Ql (U) Negative Normal NEGATIVE [facility] Comment on above: Performed By: #### U AMIC #### [facility] [address] [address] [address] Willam Novoa LEUKOCYTES Negative Normal NEGATIVE [facility] Comment on above: Performed By: #### U AMIC #### [facility] [address] [address] [address] Willam Novoa MUCOUS NONE SEEN Normal NONE SEEN [facility] Comment on above: Performed By: #### U AMIC #### [facility] [address] [address] [address] Willam Novoa Nitrite Ql (U) Negative Normal NEGATIVE [facility] Comment on above: Performed By: #### U AMIC #### [facility] [address] [address] [address] Willam Novoa pH (U) 6.0 [pH] Normal 5-9 [facility] Comment on above: Performed By: #### U AMIC #### [facility] [address] [address] [address] Willam Novoa RBC NONE SEEN Abnormal 0-2 [facility] Comment on above: Performed By: #### U AMIC #### [facility] [address] [place] [address] Dr. Willam Novoa SPEC GRAVITY <=1.005 Abnormal 1.005-<=1.025 [facility] Comment on above: Performed By: #### U AMIC #### [facility] [address] [place] [address] Dr. Willam Novoa UA PROTEIN Negative Normal NEGATIVE/ TRACE [facility] Comment on above: Performed By: #### U AMIC #### [facility] [address] [place] [address] Dr. Willam Novoa Urobilinogen Qn (U) 0.2 {Kalpesh'U}/dL Normal 0.2 - 1. 0 [facility] Comment on above: Performed By: #### U AMIC #### [facility] [address] [place] [address] Dr. Willam Novoa WBC NONE SEEN Normal NONE SEEN [facility] Comment on above: Performed By: #### U AMIC #### [facility] [address] [place] [address] Dr. Willam Novoa MICROALBUMIN URINEon 022 Albumin, Urine 5.9 ug/mL Normal Not Estab. [facility] Comment on above: Performed By: #### M ALBLC #### [facility] [address] [place] [address] Dr. Willam Novoa T4 LABCORPon 05-25-2022 T4 [Mass/Vol] 8.3 ug/dL Normal 4.5-12.0 [facility] Comment on above: Performed By: #### C BC #### [facility] [address] [place] [address] Dr. Willam Novoa CBC AUTO DIFFon 05-24-2022 BASO # 0.1 103/ul Normal 0.0-0.1 [facility] Comment on above: Performed By: #### C BC #### [facility] [address] [place] [address] Dr. Willam Novoa Basophils/100 WBC (Bld) 0.9 % Normal 0.2-2.0 [facility] Comment on above: Performed By: #### C BC #### [facility] [address] [place] [address] Dr. Willam Novoa EO # 0.3 103/ul Normal 0.0-0.7 [facility] Comment on above: Performed By: #### C BC #### [facility] [address] [place] [address] Dr. Willam Novoa Eosinophils/100 WBC (Bld) 3.5 % Normal 0.9-7.0 [facility] Comment on above: Performed By: #### C BC #### [facility] [address] [place] [address] Dr. Willam Novoa Erythrocyte distribution width (RBC) [Ratio] 13.2 % Normal 11.0-15.0 [facility] Comment on above: Performed By: #### C BC #### [facility] [address] [place] [address] Dr. Willam Novoa Hematocrit (Bld) [Volume fraction] 45.7 % Normal 36.0-48.0 [facility] Comment on above: Performed By: #### C BC #### [facility] [address] [place] [address] Dr. Willam Novoa Hemoglobin (Bld) [Mass/Vol] 14.3 g/dL Normal 12.0-16.0 [facility] Comment on above: Performed By: #### C BC #### [facility] [address] [place] [address] Dr. Willam Novoa IG # 0.03 10e3/ul Normal 0.00-0.03 [facility] Comment on above: Performed By: #### C BC #### [facility] [address] [place] [address] Dr. Willam Novoa IG % 0.3 % Normal 0.0-0.5 [facility] Comment on above: Performed By: #### C BC #### [facility] [address] [place] [address] Dr. Willam Novoa LYMPH # 3.5 103/ul Normal 1.2-3.8 [facility] Comment on above: Performed By: #### C BC #### [facility] [address] [place] [address] Dr. Willam Novoa Lymphocytes/100 WBC (Bld) 38.7 % Normal 20.5-60.0 [facility] Comment on above: Performed By: #### C BC #### [facility] [address] [place] [address] Dr. Willam Novoa MANUAL DIFF REQ NO Normal [facility] Comment on above: Performed By: #### C BC #### [facility] [address] [place] [address] Dr. Willam Novoa MCH (RBC) [Entitic mass] 29.8 pg Normal 26.7-34.0 [facility] Comment on above: Performed By: #### C BC #### [facility] [address] [place] [address] Dr. Willam Novoa MCHC (RBC) [Mass/Vol] 31.3 g/dL Normal 29.9-35.2 [facility] Comment on above: Performed By: #### C BC #### [facility] [address] [place] [address] Dr. Willam Novoa MCV (RBC) [Entitic vol] 95.2 fL Normal 81.0-99.0 [facility] Comment on above: Performed By: #### C BC #### [facility] [address] [place] [address] Dr. Willam Novoa MONO # 0.8 103/ul Normal 0.3-0.8 [facility] Comment on above: Performed By: #### C BC #### [facility] [address] [place] [address] Dr. Willam Novoa Monocytes/100 WBC (Bld) 9.3 % Normal 1.7-12.0 [facility] Comment on above: Performed By: #### C BC #### [facility] [address] [place] [address] Dr. Willam Novoa NEUT # 4.2 103/ul Normal 1.4-6.5 [facility] Comment on above: Performed By: #### C BC #### [facility] [address] [address] [address] Willam Novoa Neutrophils/100 WBC (Bld) 47.3 % Normal 43.0-75.0 [facility] Comment on above: Performed By: #### C BC #### [facility] [address] [address] [address] Willam Novoa Platelet mean volume (Bld) [Entitic vol] 9.3 fL Critically low 9.5-13.5 [facility] Comment on above: Performed By: #### C BC #### [facility] [address] [place] [address] Dr. Willam Novoa PLT 295 103/ul Normal 150-450 [facility] Comment on above: Performed By: #### C BC #### [facility] [address] [address] [address] Willam Novoa RBC 4.80 106/ul Normal 4.20-5.40 [facility] Comment on above: Performed By: #### C BC #### [facility] [address] [address] [address] Willam Novoa WBC 8.9 103/ul Normal 4.0-11.0 [facility] Comment on above: Performed By: #### C BC #### [facility] [address] [place] [address] Dr. Willam Novoa GLYCOHEMOGLOBIN A1Con 2021 ADA RECOMMENDATION SEE BELOW Normal [facility] Comment on above: Result Comment: ADA RECOMMENDED LIMIT 4.0 - 6.0 ADA THERAPEUTIC TARGET < 7.0 ACTION SUGGESTED > 7.0 Performed By: #### A 1C #### [facility] [address] [place] [address] Dr. Willam Novoa Glucose [Mass/Vol] 200 mg/dL Normal [facility] Comment on above: Performed By: #### A 1C #### [facility] [address] [place] [address] Dr. Willam Novoa HbA1c (Bld) [Mass fraction] 8.6 % Critically high 4.5-6.2 [facility] Comment on above: Performed By: #### A 1C #### [facility] [address] [place] [address] Dr. Willam Novoa PROF 14(COMP METB)on 022 Albumin [Mass/Vol] 4.1 g/dL Normal 3.4-5.0 [facility] Comment on above: Performed By: #### T SH, CMP #### [facility] [address] [place] [address] Dr. Willam Novoa Albumin/Globulin [Mass ratio] 1.2 {ratio} Normal [facility] Comment on above: Performed By: #### T SH, CMP #### [facility] [address] [place] [address] Dr. Willam Novoa ALP [Catalytic activity/Vol] 121 U/L Critically high 46-116 [facility] Comment on above: Performed By: #### T SH, CMP #### [facility] [address] [place] [address] Dr. Willam Novoa ALT [Catalytic activity/Vol] 31 U/L Normal 14-59 [facility] Comment on above: Performed By: #### T SH, CMP #### [facility] [address] [place] [address] Dr. Willam Novoa Anion gap [Moles/Vol] 15.9 mmol/L Normal [facility] Comment on above: Performed By: #### T SH, CMP #### [facility] [address] [place] [address] Dr. Willam Novoa AST [Catalytic activity/Vol] 13 U/L Critically low 15-37 [facility] Comment on above: Performed By: #### T SH, CMP #### [facility] [address] [place] [address] Dr. Willam Novoa Bilirubin [Mass/Vol] 0.4 mg/dL Normal 0.2-1.0 [facility] Comment on above: Performed By: #### T SH, CMP #### [facility] [address] [place] [address] Dr. Willam Novoa Calcium [Mass/Vol] 9.3 mg/dL Normal 8.5-10.1 [facility] Comment on above: Performed By: #### T SH, CMP #### [facility] [address] [address] [address] Willam Novoa Chloride [Moles/Vol] 103 mmol/L Normal 98-107 [facility] Comment on above: Performed By: #### T SH, CMP #### [facility] [address] [place] [address] Dr. Willam Novoa CO2 [Moles/Vol] 27.1 mmol/L Normal 21.0-32.0 [facility] Comment on above: Performed By: #### T SH, CMP #### [facility] [address] [place] [address] Dr. Willam Novoa Creatinine [Mass/Vol] 0.74 mg/dL Normal 0.55-1.02 [facility] Comment on above: Performed By: #### T SH, CMP #### [facility] [address] [place] [address] Dr. Willam Novoa EGFR-AF TAJIK >60 Normal >=60 [facility] Comment on above: Performed By: #### T SH, CMP #### [facility] [address] [place] [address] Dr. Willam Novoa EGFR-NON AF TAJIK >60 Normal >=60 [facility] Comment on above: Performed By: #### T SH, CMP #### [facility] [address] [place] [address] Dr. Willam Novoa Globulin (S) [Mass/Vol] 3.3 g/dL Normal [facility] Comment on above: Performed By: #### T SH, CMP #### [facility] [address] [place] [address] Dr. Willam Novoa Glucose [Mass/Vol] 194 mg/dL Critically high 74-106 [facility] Comment on above: Performed By: #### T SH, CMP #### [facility] [address] [address] [address] Willam Novoa Potassium [Moles/Vol] 4.0 mmol/L Normal 3.5-5.1 [facility] Comment on above: Performed By: #### T SAVANNAH, CMP #### [facility] [address] [place] [address] Dr. Willam Novoa Protein [Mass/Vol] 7.4 g/dL Normal 6.4-8.2 [facility] Comment on above: Performed By: #### T SAVANNAH, CMP #### [facility] [address] [place] [address] Dr. Willam Novoa Sodium [Moles/Vol] 142 mmol/L Normal 136-145 [facility] Comment on above: Performed By: #### T SAVANNAH, CMP #### [facility] [address] [place] [address] Dr. Willam Novoa Urea nitrogen [Mass/Vol] 19.0 mg/dL Critically high 7.0-18.0 [facility] Comment on above: Performed By: #### T SAVANNAH, CMP #### [facility] [address] [place] [address] Dr. Willam Novoa Urea nitrogen/Creatinine [Mass ratio] 25.7 mg/mg Normal [facility] Comment on above: Performed By: #### T SAVANNAH, CMP #### [facility] [address] [place] [address] Dr. Willam Novoa TSHon 05-24-2022 TSH 1.350 uIU/mL Normal 0.358-3.740 [facility] Comment on above: Performed By: #### T SAVANNAH, CMP #### [facility] [address] [place] [address] Dr. Willam Novoa Vital Signs Date Time Vital Sign Value Performing Clinician Facility 07-13-2024 17:43-0400 Body height 160 cm Judi Jimenez [employer] Work Phone: [facility] 07-13-2024 17:43-0400 Body mass index (BMI) [Ratio] 36 kg/m2 Judi Jimenez [employer] Work Phone: [facility] 07-13-2024 17:43-0400 Body temperature 97.5 [degF] Judi Toussaintz [employer] Work Phone: [facility] 07-13-2024 17:43-0400 Body weight 92.17 kg Judirico Beckhamholz [employer] Work Phone: [facility] 07-13-2024 17:43-0400 Diastolic blood pressure 82 mm[Hg] Judi Beckhamholz [employer] Work Phone: [facility] 07-13-2024 17:43-0400 Heart rate 97 /min Judi Bhavaniholz [employer] Work Phone: [facility] 07-13-2024 17:43-0400 Respiratory rate 18 /min Judi Beckhamholz [employer] Work Phone: [facility] 07-13-2024 17:43-0400 SaO2% (BldA) [Mass fraction] 98 % Judi Beckhamholz [employer] Work Phone: [facility] 07-13-2024 17:43-0400 Systolic blood pressure 124 mm[Hg] Judi Beckhamholz [employer] Work Phone: [facility] 12-18-2021 11:00-0400 Body height 165.1 cm Yash Jeffries Other [facility] Other 12-18-2021 11:00-0400 Body mass index (BMI) [Ratio] 36.27 kg/m2 Yash Jeffries Other [facility] [employer] Other 12-18-2021 11:00-0400 Body weight 98.88 kg Yash Jeffries Other [facility] Other 08-12-2021 14:00-0500 Body height 165.1 cm Yash Jeffries Other [facility] [employer] Other 08-12-2021 14:00-0500 Body mass index (BMI) [Ratio] 36.27 kg/m2 Yash Jeffries Other [facility] [employer] Other 08-12-2021 14:00-0500 Body weight 98.88 kg Yash Jeffries Other [facility] [employer] Other 08-12-2021 14:00-0500 Diastolic blood pressure 79 mm[Hg] Yash Jeffries Other [facility] [employer] Other 08-12-2021 14:00-0500 Systolic blood pressure 130 mm[Hg] Yash Jeffries Other [facility] [employer] Other Encounters Encounter Date Encounter Type Care Provider Facility Start: 08-23-2024 End: 08-23-2024 Telephone encounter Judi Jimenez NP [facility] Start: 08-22-2024 End: 08-24-2024 Telephone encounter Juan Kaur [employer] Work Phone: [facility] Comment on above: order clarification Start: 08-15-2024 End: 08-15-2024 Bamboo flowsheet Juan Kaur [employer] Work Phone: [facility] Start: 08-15-2024 End: 08-15-2024 Bamboo flowsheet Juan Kaur [employer] Work Phone: [facility] Start: 08-15-2024 End: 08-15-2024 Office outpatient new 30 minutes Juan Kaur [employer] Work Phone: [facility] Comment on above: Right knee pain, uns pecified chronicity (Primary Dx); Chronic pain of right knee; Status post right knee replacement Start: 08-15-2024 End: 08-15-2024 ambulatory JUAN KAUR Not Available Start: 08-08-2024 End: 08-08-2024 External Result Encounter Judi Jimenez [employer] Work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
== END 2024-09-02 08:00 | disposition home or self-care (01) ==
LOC: NM 07:59
PROVIDERS: PCP Nurse Practitioner; Visit Provider Nurse Practitioner Family
DX: Z96.651 Presence of right artificial knee joint (principal)
CPT/HCPCS: 78315; A9503

== ENCOUNTER 2025-01-06 09:12 | Outpatient (OUT) | payer OTHER, SELFPAY ==
--- NOTE | 2025-01-06 09:14 | CT_ITS ---
The [address] [address] Patient Name: VANI KAUFFMAN MRN: [id number] date: 1955 Sex: F Assigned Patient Location: CT Current Patient Location: CT Accession/Order Number: [id number] Exam Date: 01/06/2025 10:12 Report Date: 01/06/2025 10:36 At the request of: JASMINE KAMARA NP Procedure: CT chest w con CT CHEST WITH INTRAVENOUS CONTRAST: CLINICAL HISTORY: Lung Nodule COMPARISON: CT 07/22/2024 TECHNIQUE: Spiral images were obtained through the chest following intravenous administration of 0 mL of contrast. Images were reviewed using both narrow and wide window settings. This CT exam was performed using one or more following dose reduction techniques: Automated exposure control, adjustment of the mA and/or kV according to patient size, or use of iterative reconstruction technique. FINDINGS: The heart is not enlarged. There is no pericardial effusion. No aortic aneurysm or dissection is seen. There is no mediastinal or hilar lymphadenopathy. There are tiny thyroid hypodensities. Dextroscoliotic curvature and degenerative changes are present at the spine. There is prior cervical fusion. There is minor scarring or atelectasis. There is no other consolidation, pleural effusion or pneumothorax. A tiny 3 mm groundglass nodule is again seen at the anterior right middle lobe on axial image 51. This also still a tiny pleural-based nodular density at the posterior right lower lobe (axial image 71). A 9 mm noncalcified left upper lobe nodule in the perihilar region is still seen and has not significantly changed. No additional nodularity is present. Limited cuts through the upper abdomen show fatty liver. A 3.5 cm hypodense left adrenal nodule is again seen. CT/CT chest w con IMPRESSION: STABLE PULMONARY NODULARITY. SCARRING OR ATELECTASIS. SIMILAR FATTY LIVER AND LEFT ADRENAL NODULE. Impression dictated by: Danna Holloway M.D.01/06/2025 10:36 AM Dictation Location: [place] [address] Electronically authenticated by: [id number] Y Date: 01/06/2025 10:36
--- NOTE | 2025-01-06 09:35 | MM_ITS ---
Patient Name: VANI KAUFFMAN MR#: [id number] : 1955 Exam Date: 01/06/2025 Ordering Doctor: ELEANOR Jimenez CNP RADIOLOGY REPORT PROCEDURE: MM TOMOSYNTHESIS SCREENING BI COMPARISON: MM TOMOSYNTHESIS DIAGNOSTIC BI, 12/02/2023. MM TOMOSYNTHESIS SCREENING BI, 03/06/2023. MG MAMM SCREEN SISSY W CAD, 10/10/2020. MG MAMM SISSY DIAG W CAD DIG, 12/08/2013. INDICATIONS: Screening Calculator Name NCI Breast Cancer Risk Assessment Tool 5 Year Breast Cancer Risk 4.70% Lifetime Breast Cancer Risk 14.80% Personal Breast Cancer No Personal Ovarian Cancer No Treatments None Family Cancers Mother with breast cancer at age 65; Aunt-maternal with breast cancer at age ~71; Aunt-maternal with breast cancer at age ~74; Cousin-maternal with breast cancer at age ~50; Grandmother-maternal with uterus cancer at age 80; Cousin-paternal with colon cancer at age ~57. LOCATION: [facility] BREAST COMPOSITION: There are scattered areas of fibroglandular density. FINDINGS: DIAGNOSTIC CATEGORY 1--NEGATIVE. RIGHT BREAST: No significant suspicious finding. LEFT BREAST: No significant suspicious finding. RECOMMENDATIONS: ROUTINE MAMMOGRAM AND CLINICAL EVALUATION IN 12 MONTHS. PLEASE NOTE: A NORMAL MAMMOGRAM DOES NOT EXCLUDE THE POSSIBILITY OF BREAST CANCER. A CLINICALLY SUSPICIOUS PALPABLE LUMP SHOULD BE BIOPSIED. Dictated by: Hguo Norton DO on 01/06/2025 at 14:58 Approved by: Hugo Norton DO on 01/06/2025 at 15:01
== END 2025-01-06 09:13 | disposition home or self-care (01) ==
LOC: CT 09:12
PROVIDERS: PCP Nurse Practitioner; Visit Provider Nurse Practitioner
DX: Z12.31 Encounter for screening mammogram for malignant neoplasm of breast (principal); R91.1 Solitary pulmonary nodule; Z80.3 Family history of malignant neoplasm of breast; Z80.0 Family history of malignant neoplasm of digestive organs; Z80.8 Family history of malignant neoplasm of other organs or systems
CPT/HCPCS: 71260; 77063; 77067; Q9967

== ENCOUNTER 2025-01-09 14:17 | Outpatient (OUT) | payer OTHER, SELFPAY ==
--- NOTE | 2025-01-09 15:43 | P.CN_ITS ---
Consult Note: HPI Data of Consult Patient: new to practice Consult date: 01/09/25 Requesting Physician: Kelvin Arreguin MD Primary Care Provider: Judi Jimenez NP Consult Narrative Reason for consult: low back, right leg pain Narrative: 69yof who presents for evaluation. longstanding low back pain with radiation into right lower extremity. has engaged in a series of provider directed home exercises >6 weeks, without lasting benefit. uses otc pain meds as needed. cc:: CC: Kelvin Arreguin MD Review of Systems ROS Status of ROS 10 or more systems reviewed and unremark able except as noted in history and below Exam Narrative Exam Narrative: Psych-alert and oriented x 3. Attentive and appropriate, constitutionally normal, displays normal mood and affect per situation. There are no obvious deficits in memory, reasoning, or intellect.? Skin-no obvious rashes, bruising, erythema noted to the patient's area of pain.? Extremities- extremities are warm with minimal edema and palpable pulses. Lumbar-tenderness to palpation noted in the lumbar spine and paraspinal musculature. Pain is elicited with flexion, extension, and lateral rotation of the lumbar spine. Range of motion is diminished with these motions. Facet loading maneuvers are positive. Strength-noted to be unremarkable Sensory-no notable sensory deficits in the bilateral lower extremities to touch or pinprick in all dermatomal distributions with the exception to decreased sensation to the right L3, 4 dermatomal distribution Coordination remains intact.? Gait remains non-antalgic. Assessment and Plan Assessment and Plan (1) Lumbar stenosis with neurogenic claudication: (2) Lumbar spondylosis: Plan 69yof who presents for evaluation. failed conservative measures, as noted. given symptoms and exam, would like to obtain lumbar mri without contrast for further info. she is in agreement. meds reviewed, no changes. follow up after imaging.
== END 2025-01-09 14:18 | disposition home or self-care (01) ==
LOC: PM 14:18
PROVIDERS: PCP Nurse Practitioner; Visit Provider Anesthesiology
DX: M48.062 Spinal stenosis, lumbar region with neurogenic claudication (principal); M47.816 Spondylosis without myelopathy or radiculopathy, lumbar region
CPT/HCPCS: G0463

== ENCOUNTER 2025-02-10 08:37 | Outpatient (OUT) | payer OTHER, SELFPAY ==
--- NOTE | 2025-02-10 08:40 | MR_ITS ---
[address] [address] Patient Name: VANI KAUFFMAN MRN: [id number] date: 1955 Sex: F Assigned Patient Location: MRI Current Patient Location: MRI Accession/Order Number: [id number] Exam Date: 02/10/2025 10:07 Report Date: 02/10/2025 10:10 At the request of: FARZANA SHERWOOD MD Procedure: MR lumbar spine wo con EXAMINATION: MRI LUMBAR SPINE WITHOUT IV CONTRAST CLINICAL HISTORY: Chronic low back pain with right leg weakness COMPARISON: None TECHNIQUE: Multiecho imaging was performed in the sagittal and axial planes without contrast administration. FINDINGS: Vertebral body heights appear maintained. No bone marrow edema. Diffuse disc desiccation. Spinal cord terminates in normal position without abnormal cord signal. No paraspinal mass. Visualized retroperitoneum demonstrates no acute findings. At L1-L2: Diffuse broad-based disc bulge is present with facet joint degenerative changes causing mild canal and bilateral neural foraminal stenosis. At L2-L3: Diffuse broad-based disc bulge is present with ligamentum flavum hypertrophy and facet joint degenerative changes causing moderate canal and mild bilateral neural foraminal stenosis. At L3-L4: Diffuse broad-based disc bulge is present with ligamentum flavum hypertrophy and facet joint degenerative changes causing moderate canal and mild bilateral neural foraminal stenosis. At L4-L5: Diffuse broad-based disc bulge is present with ligamentum flavum hypertrophy and facet joint degenerative changes causing moderate canal and mild right-sided neural foraminal stenosis. At L5-S1: Diffuse broad-based disc bulge is present with facet joint degenerative changes. No significant canal stenosis. Moderate left-sided neural foraminal stenosis. 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 Impression dictated by: Hugo Norton Jr., D.O. 02/10/2025 10:10 AM Dictation [facility] Electronically authenticated by: [id number] Y Date: 02/10/2025 10:10
== END 2025-02-10 08:38 | disposition home or self-care (01) ==
LOC: MRI 08:37
PROVIDERS: PCP Nurse Practitioner; Visit Provider Anesthesiology
DX: M48.062 Spinal stenosis, lumbar region with neurogenic claudication (principal); M51.369 Other intervertebral disc degeneration, lumbar region without mention of lumbar back pain or lower extremity pain
CPT/HCPCS: 72148

== ENCOUNTER 2025-03-02 14:28 | Outpatient (OUT) | payer OTHER, SELFPAY ==
--- OUTSIDE RECORDS SUMMARY | 2025-03-02 14:30 | XMS_ITS | Clinical Summary ---
Author Organization [facility] Healthcare Address [address] [place] [address] Care Team Providers Care Regional Economist Name Role Phone Judi Jimenez NP Unavailable [phone] Jamir Hare MD Primary Care Provider [phone] Jamir Hare MD Unavailable Allergies Active Allergy Reactions Criticality Noted Date Comments Cephalexin Unknown 09/15/2019 Penicillins 09/07/2023 Sulfa Antibiotics 09/07/2023 Medications True Metrix Blood Glucose Test test strip 1 each by Other route Daily 12/02/19 24 Active tiZANidine (Zanaflex) 4 MG tabletIndications: Chronic bilateral low back pain without sciatica Take 1 tablet (4 mg) by mouth as needed at bedtime for muscle spasms 30 tablet 1 09/14/20 24 Active Continuous Glucose Vitreo Retinal Surgeon (FreeStyle Amegan 3 Whiting) deviceIndications: Type 2 diabetes mellitus with insulin therapy ([facility]) 1 each Daily 1 each 09/15/20 24 025 Active Continuous Glucose Sensor (FreeStyle Maegan 3 Sensor) [facility] [place] to test BLOOD SUGAR DAILY; change EVERY 14 days 11/13/19 25 Active Ventolin HFA 108 (90 Base) MCG/ACT inhalerIndications :Mild intermittent asthma without complication ([facility]) Inhale 2 puffs every 6 (six) hours if needed for wheezing 18 g 1 01/23/20 25 Active clopidogrel (Plavix) 75 MG tablet Take 75 mg by mouth Daily 12/30/19 25 Active cyclobenzaprine (Flexeril) 10 MG tablet Take 10 mg by mouth in the morning and 10 mg in the evening and 10 mg before bedtime. 01/11/20 Active amLODIPine (Norvasc) 10 MG tabletIndications: Primary hypertension (CMS/HCC) Take 1 tablet (10 mg) by mouth Daily 90 tablet 1 01/26/20 025 Active atorvastatin (Lipitor) 80 MG tabletIndications: Mixed hyperlipidemia ([facility]) Take 1 tablet (80 mg) by mouth at bedtime 90 tablet 01/26/20 025 Active empagliflozin (Jardiance) 25 MGIndications:Type 2 diabetes mellitus with insulin therapy ([facility]) Take 1 tablet (25 mg) by mouth in the morning. 90 tablet 01/26/20 025 Active Additional Information Patient not taking.Reported on 01/25/2025 ergocalciferol (Vitamin D2) 1.25 MG (73850 UT) capsuleIndications :Vitamin D deficiency Take 1 capsule (1.25 mg) by mouth 1 (one) time per week 12 capsule 01/26/20 025 Active famotidine (Pepcid) 20 MG tabletIndications: Gastroesophageal reflux disease without esophagitis Take 1 tablet (20 mg) by mouth at bedtime 90 tablet 01/26/20 025 Active losartan (Cozaar) 100 MG tabletIndications: Primary hypertension ([facility]/HCC) Take 1 tablet (100 mg) by mouth Daily Take 100 mg by mouth Daily 90 tablet 1 01/26/20 025 Active pantoprazole (ProtoNix) 40 MG EC tabletIndications: Gastroesophageal reflux disease without esophagitis Take 1 tablet (40 mg) by mouth Daily 90 tablet 1 01/26/20 025 Active Tirzepatide (Mounjaro) 10 MG/0.5ML solution auto-injectorIndic ations:Type 2 diabetes mellitus with insulin therapy ([facility]) Inject 10 mg as directed every 7 (seven) days 6 mL 01/26/20 025 Active metFORMIN (Glucophage) 1000 MG tabletIndications: Type 2 diabetes mellitus with insulin therapy ([facility]) Take 1 tablet (1,000 mg) by mouth in the morning and 1 tablet (1,000 mg) in the evening. Take with meals. 180 tablet 1 01/26/20 25 025 Active insulin glargine (Basaglar KwikPen) 100 UNIT/ML penIndications:Typ e 2 diabetes mellitus with insulin therapy (CMS/HCC) 55 units daily 60 mL 1 01/26/20 25 Active Budeson-Glycopyrro l-Formoterol (Breztri Aerosphere) 160-9-4.8 MCG/ACT aerosolIndications :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) Inhale 2 puffs in the morning and 2 puffs before bedtime. 32.1 g 1 01/26/20 25 025 Active Problems Problem Noted Date Diagnosed Date Lumbar spinal stenosis 02/12/2025 Overview (02/12/2025): MRI lumbar spine 02/2025 Morbid (severe) obesity due to excess calories 0 12/12/2024 Assessment & Plan (01/25/2025 7:43 AM EDT): Discussed with patient their BMI (actual, verses recommended). We have also discussed lifestyle modifications: attempts to perform physical activity as chronic conditions allow, also to monitor dietary intake: increasing protein/fruits/veggies and lowering carb intake (unless contraindicated). Limit sodas, juices, and sugary drinks. Does take mounjaro for tx of her DM Assessment & Plan (12/12/2024 7:24 AM EDT): Discussed with patient their BMI (actual, verses recommended). We have also discussed lifestyle modifications: attempts to perform physical activity as chronic conditions allow, also to monitor dietary intake: increasing protein/fruits/veggies and lowering carb intake (unless contraindicated). Limit sodas, juices, and sugary drinks. Does take mounjaro for tx of her DM Encounter for screening mamm ogram for malignant neoplasm of breast 12/12/2024 Chronic bilateral low back pain without sciatica 09/14/2024 Assessment & Plan (12/12/2024 6:23 PM EDT): Clinically is not better despite muscle relaxers and is willing to see Pain Mgmt I will also give a short supply of [place], last given in 09/27 OARRS reviewed Assessment & Plan (09/14/2024 6:36 PM EST): Is asking about opioid pain meds, as dr cruz used to prescribe them. I explained that I would give her 7 days script for this, and then would recommend pain mgmt She will think about this I also gave script for tizanidine prn advised of side effects Hand out on back stretching exercises as well Sxs get aggravated with pain in right knee and her gait is thrown off OARRS reviewed Urinary frequency 08/02/2024 Lung nodule seen on imaging study 07/25/2024 Elevated white blood cell count 07/18/2024 Hemoptysis 07/13/2024 Assessment & Plan (07/13/2024 6:38 PM EDT): Will order CT chest w contrast Chronic pain of right knee 07/13/2024 Assessment & Plan (07/13/2024 6:41 PM EDT): Hx of infection and elevated WBC in the past, with minimal sxs Will check labs, and xray Mixed simple and mucopurulent chronic bronchitis 07/13/2024 Assessment & Plan (07/13/2024 6:38 PM EDT): Will start kingstri #1 sample given: lot [id number] exp 06/30 COVID 06/29/2024 Epigastric pain 03/07/2024 Assessment & Plan (03/07/2024 7:00 PM EDT): Unclear if side effect of med or not Check amylase, lipase, basic metabolic Body mass index (BMI) 35.0-35.9, adult Assessment & Plan (09/14/2024 7:24 AM EST): Discussed with patient their BMI (actual, verses recommended). We have also discussed lifestyle modifications: attempts to perform physical activity as chronic conditions allow, also to monitor dietary intake: increasing protein/fruits/veggies and lowering carb intake (unless contraindicated). Limit sodas, juices, and sugary drinks. Vaginal yeast infection 02/04/2024 Encounter for subsequent emiliana ua wellness visit (AWV) in Medicare patient 12/28/2023 Assessment & Plan (01/25/2025 7:44 AM EDT): Reviewed Ht/Wt/BMI Recommend eye exam yearly Recommend dental exams twice a year Exercises is recommended most days of the week (appropriate as chronic conditions allow) Follow up yearly and prn Assessment & Plan (12/28/2023 5:45 PM EDT): Reviewed Ht/Wt/BMI Recommend eye exam yearly Recommend dental exams twice a year Exercises is recommended most days of the week (appropriate as chronic conditions allow) Hand out on living will and health care POA booklets given Follow up yearly and prn Mild intermittent asthma without complication Assessment & Plan (12/28/2023 5:11 PM EDT): Stable no changes in meds Shortness of breath 12/11/2023 Stroke 11/23/2023 Assessment & Plan (09/14/2024 7:26 AM EST): Current meds: asa, plavix, statin Type 2 diabetes mellitus wit h diabetic neuropathy, unspecified 11/23/2023 Assessment & Plan (01/25/2025 7:43 AM EDT): No current meds for this Gabapentin gave bad nightmares Does not want to trial lyrica Assessment & Plan (12/12/2024 7:23 AM EDT): No current meds for this Gabapentin gave bad nightmares Does not want to trial lyrica Assessment & Plan (09/14/2024 6:30 PM EST): No current meds for this Gabapentin gave bad nightmares Does not want to trial lyrica Assessment & Plan (12/28/2023 5:11 PM EDT): Cannot tolerate gabapentin, also believes she has trial duloxetine in the past Assessment & Plan (11/23/2023 7:54 PM EST): Cannot tolerate gabapentin, also believes she has trial duloxetine in the past I will try a low dose of elavil at 10mg at bedtime, may also help with sleep Fu in 4 weeks Osteoarthritis of right knee 11/23/2023 DDD (degenerative disc disease), cervical 2023 Type 2 diabetes mellitus with insulin therapy Assessment & Plan (01/25/2025 7:44 AM EDT): Check blood sugars daily, notify if <70 or >200. Take medications (pills or insulin) as directed. Monitor for s/s of hypoglycemia (sweaty, dizziness, nausea, vomiting, or shakiness). Watch for increase in thirst, urination, or appetite. Inspect feet frequently monitoring for open wounds , and also recommend yearly eye exam. Pt should attempt to remain as physically active as chronic conditions allow, as well as trying to follow a diet low in carbohydrates, and simple sugars. Current meds: insulin, mounjaro, metformin, jardiance, statin, asa A1c: 6.9% 12/12/24 Restart the metformin and lower insulin dose to 55 units Fu in 4 weeks Increase protein snacks Asked about extra maegan sensor, and #2 samples given : lot [id number] exp 02/01/25 Assessment & Plan (12/12/2024 6:24 PM EDT): Check blood sugars daily, notify if <70 or >200. Take medications (pills or insulin) as directed. Monitor for s/s of hypoglycemia (sweaty, dizziness, nausea, vomiting, or shakiness). Watch for increase in thirst, urination, or appetite. Inspect feet frequently monitoring for open wounds , and also recommend yearly eye exam. Pt should attempt to remain as physically active as chronic conditions allow, as well as trying to follow a diet low in carbohydrates, and simple sugars. Current meds: insulin, mounjaro, metformin, jardiance, statin, asa A1c: 6.9% 12/12/24 Restart the metformin and lower insulin dose to 55 units Fu in 4 weeks Increase protein snacks Asked about extra maegan sensor, and #2 samples given : lot [id number] exp 02/01/25 Assessment & Plan (09/14/2024 6:31 PM EST): Check blood sugars daily, notify if <70 or >200. Take medications (pills or insulin) as directed. Monitor for s/s of hypoglycemia (sweaty, dizziness, nausea, vomiting, or shakiness). Watch for increase in thirst, urination, or appetite. Inspect feet frequently monitoring for open wounds , and also recommend yearly eye exam. Pt should attempt to remain as physically active as chronic conditions allow, as well as trying to follow a diet low in carbohydrates, and simple sugars. Current meds: insulin, mounjaro, metformin, jardiance, statin, asa A1c 07/14/24 7.5 Will trial an increase in mounjaro to 10mg Assessment & Plan (07/13/2024 6:41 PM EDT): Sugars are trending up Check labs Increase mounjaro to 7.5mg once a week Fu in 4 weeks No other changes in meds/doses Assessment & Plan (04/18/2024 6:30 PM EDT): Denies any abd symptoms w mounjaro 6.9% A1c in 03/28 Will lower insulin dose to 55 units at HS Increase mounjaro to 5mg weekly Recheck in 8 weeks Add asa Recommend update pneumonia shot too Assessment & Plan (03/07/2024 7:01 PM EDT): Have her stop ozempic, check labs Trial Rybelsus 3mg daily, to start tomorrow Lot [id number], exp 03/04/2025 Assessment & Plan (12/28/2023 5:40 PM EDT): Check blood sugars daily, notify if <70 or >200. Take medications (pills or insulin) as directed. Monitor for s/s of hypoglycemia (sweaty, dizziness, nausea, vomiting, or shakiness). Watch for increase in thirst, urination, or appetite. Inspect feet frequently monitoring for open wounds , and also recommend yearly eye exam. Pt should attempt to remain as physically active as chronic conditions allow, as well as trying to follow a diet low in carbohydrates, and simple sugars. Difficulty with getting ozempic at 1mg dose, is asking if we can increase to 1.5mg If sugars consistently less than 100 with this change, cut insulin back to 55 units Assessment & Plan (11/23/2023 7:55 PM EST): Check blood sugars daily, notify if <70 or >200. Take medications (pills or insulin) as directed. Monitor for s/s of hypoglycemia (sweaty, dizziness, nausea, vomiting, or shakiness). Watch for increase in thirst, urination, or appetite. Inspect feet frequently monitoring for open wounds , and also recommend yearly eye exam. Pt should attempt to remain as physically active as chronic conditions allow, as well as trying to follow a diet low in carbohydrates, and simple sugars. Check labs Visual impairment 11/23/2023 Menopause 11/23/2023 Overview (11/23/2023): DEXA scan 03/06/23: WNL, T score -0.7 Elevated alkaline phosphatase level 11/23/2023 Prosthetic joint infection 11/23/2023 Vitamin D deficiency 11/23/2023 Assessment & Plan (12/12/2024 7:25 AM EDT): On supplement Check labs yearly and prn changes in sxs or dosage Mass of lower outer quadrant of left breast 11/05 Gastro-esophageal reflux disease without esophag itis 10/06/2023 Assessment & Plan (01/25/2025 7:43 AM EDT): Recommendations: freq small meals, nothing to eat or drink at least 2 hours prior to bed, limit caffeine, alcohol, as well as spicy foods Meds to limit or avoid if possible: NSAIDS Elevate HOB if possible Current med: pantoprazole Assessment & Plan (12/12/2024 7:23 AM EDT): Recommendations: freq small meals, nothing to eat or drink at least 2 hours prior to bed, limit caffeine, alcohol, as well as spicy foods Meds to limit or avoid if possible: NSAIDS Elevate HOB if possible Current med: pantoprazole Assessment & Plan (09/14/2024 7:23 AM EST): Recommendations: freq small meals, nothing to eat or drink at least 2 hours prior to bed, limit caffeine, alcohol, as well as spicy foods Meds to limit or avoid if possible: NSAIDS Elevate HOB if possible Current med: pantoprazole Assessment & Plan (03/07/2024 7:00 PM EDT): Cont PPI and Pepcid Unclear if her abd symptoms are GERD or not Assessment & Plan (12/28/2023 5:12 PM EDT): No changes in meds Recommend limit caffine, no tobacco Freq small meals no eating at least 2 hours prior to bed Primary hypertension 10/01/2023 Assessment & Plan (01/25/2025 7:43 AM EDT): Please check blood pressure daily and record DASH diet Limit caffeine Take medication as directed Contact office if chest pain, pressure, dizziness, shortness of breath, swelling legs Recommend slow position changes Current meds: amlodipine and losartan Assessment & Plan (12/12/2024 7:23 AM EDT): Please check blood pressure daily and record DASH diet Limit caffeine Take medication as directed Contact office if chest pain, pressure, dizziness, shortness of breath, swelling legs Recommend slow position changes Current meds: amlodipine and losartan Assessment & Plan (09/14/2024 7:23 AM EST): Please check blood pressure daily and record DASH diet Limit caffeine Take medication as directed Contact office if chest pain, pressure, dizziness, shortness of breath, swelling legs Recommend slow position changes Current meds: amlodipine and losartan Assessment & Plan (07/13/2024 6:40 PM EDT): Stable No med dose chagnes Assessment & Plan (12/28/2023 5:11 PM EDT): At goal Assessment & Plan (11/23/2023 7:55 PM EST): At goal Mixed hyperlipidemia 09/17/2023 Assessment & Plan (09/14/2024 7:25 AM EST): Current meds: statin Check labs yearly and prn Resolved Problems Problem Noted Date Diagnosed Date Resolved Date UTI symptoms 08/04/2024 09/14/2024 URI, acute 05/03/2024 09/14/2024 Burn 12/28/2023 04/18/2024 Neoplasm of uncertain behavior 11/23/2023 11/23/2023 Bronchitis 11/23/2023 12/12/2024 Encounters Date Type Department Care Team Description 02/10/2025 Orders Only [facility] [address] [place] [address] Kelvin Arreguin MD 02/10/2025 Clinisync Result Encounter [facility] External Department Unsolicited Provider, Generic External Data 01/25/2025 5:30 PM EDT Office Visit [facility] [address] [place] [address] Judi Jimenez NP Encounter for subsequent annual wellness visit (AWV) in Medicare patient (Primary Dx); Type 2 diabetes mellitus with diabetic neuropathy, unspecified 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 ([facility]); Primary hypertension ([facility]); Gastro-esophageal reflux disease without esophagitis; Morbid (severe) obesity due to excess calories ([facility]); Type 2 diabetes mellitus with insulin therapy ([facility]); Mixed hyperlipidemia ([facility]); Mixed simple and mucopurulent chronic bronchitis ([facility]); Vitamin D deficiency; Gastroesophageal reflux disease without esophagitis 01/25/2025 Bamboo flowsheet [facility] [address] [place] [address] Judi Jimenez NP 01/21/2025 Refill [facility] [address] [place] [address] Judi Jimenez, RUFINO Mild intermittent asthma without complication ([facility]) 01/14/2025 Refill [facility] [address] [place] [address] Judi Jimenez, RUFINO Mixed simple and mucopurulent chronic bronchitis ([facility]) 01/09/2025 Telephone [facility] [address] [place] [address] Judi Jimenez, RUFINO 01/06/2025 Clinisync Result Encounter [facility] External Department Unsolicited Judi Jimenez NP 01/06/2025 Clinisync Result Encounter [facility] External Department Unsolicited Judi Jimenez, PLANT PROTECTION SUPERVISOR 01/05/2025 Refill [facility] [address] [place] [address] Judi Jimenez, RUFINO Type 2 diabetes mellitus with insulin therapy ([facility]) (Primary Dx) 01/03/2025 Refill [facility] [address] [place] [address] Judi Jimenez, RUFINO Mild intermittent asthma without complication ([facility]) 12/29/2024 Orders Only [facility] [address] [place] [address] Judi Jimenez, RUFINO 12/22/2024 Telephone [facility] [address] [place] [address] Judi Jimenez, RUFINO 12/12/2024 5:30 PM EDT Office Visit [facility] [address] [place] [address] Judi Jimenez, RUFINO Type 2 diabetes mellitus with insulin therapy ([facility]) (Primary Dx); Type 2 diabetes mellitus with diabetic neuropathy, unspecified ([facility]); Morbid (severe) obesity due to excess calories (CMS/HCC); Gastro-esophageal reflux disease without esophagitis; Body mass index (BMI) 35.0-35.9, adult; Primary hypertension (CMS/HCC) ; Vitamin D deficiency; Encounter for screening mammogram for malignant neoplasm of breast; Lung nodule seen on imaging study; Chronic bilateral low back pain without sciatica from Last 3 Months Immunizations Immunization Administration Dates Next Due ABRYSVO - Respiratory syncyt ial virus (RSV), vaccine, bivalent, protein subunit RSV prefusion F, diluent reconstituted, 0.5 mL, PF 12/11/2024 Influenza, High Dose Seasona l, Preservative Free 07/09/2020 Influenza, injectable, MDCK, preservative free, quadrivalent 08/08/2024 Influenza, injectable, quadr ivalent, preservative free 07/08/2020 Pfizer Purple Cap SARS-CoV-2 Vaccination 06/28/2021,01/13/2021,01/03/2021,2020 Family History Medical History Relation Name Comments Breast cancer Mother Cancer Mother Diabetes Sister Multiple sclerosis Sister Thyroid disease Sister No Known Problems Son Relation Name Status Comments Father Mother Sister Alive Son Alive Social History Tobacco Use Types Packs/Day Years Used Date Smoking Tobacco: Every Day Cigarettes 0.5 34.4 Started: 10/05/1990 Tobacco Cessation:Ready to Q uit: Not Asked; Counseling Given: Not Answered Alcohol Use Standard Drinks/Week Comments Not Currently 0 (1 standard drink = 0.6 oz pur e alcohol) Humiliation, Afraid, Rape, and Kick questionnair e Answer Date Recorded Within the last year, have y ou been afraid of your partner or ex-partner? No 12/28/2023 Within the last year, have y ou been humiliated or emotionally abused in other ways by your partner or ex-partner? No Within the last year, have y ou been kicked, hit, slapped, or otherwise physically hurt by your partner or ex-partner? No 12/28/2023 Within the last year, have y ou been raped or forced to have any kind of sexual activity by your partner or ex-partner? No 12/28/2023 Social Connection and Isolat ion Panel [NHANES] Answer Date Recorded In a typical week, how many times do you talk on the phone with family, friends, or neighbors? More than three times a week 12/28/2023 How often do you get togethe r with friends or relatives? Twice a week 12/28/2023 How often do you attend chur ch or mosque services? Never 12/28/2023 Do you belong to any clubs o r organizations such as congregational groups, unions, fraternal or athletic groups, or school groups? Yes 12/28/2023 How often do you attend meet ings of the clubs or organizations you belong to? 1 to 4 times per year 12/28/2023 Are you , , di vorced, , never , or living with a partner? 12/28/2023 AUDIT-C Answer Date Recorded Q1: How often do you have a drink containing alcohol? Never 12/28/2023 Q2: How many drinks containi ng alcohol do you have on a typical day when you are drinking? Patient does not drink Q3: How often do you have si x or more drinks on one occasion? Never 12/28/2023 Overall Financial Resource Strain (CARDIA) Answe r Date Recorded How hard is it for you to pa y for the very basics like food, housing, medical care, and heating? Not hard at all 12/28/2023 PHQ-2 Answer Date Recorded Patient Health Questionnaire-2 Score 1 01/25/2025 [facility] - Occupational Stress Questionnaire Answer Date Recorded Do you feel stress - tense, restless, nervous, or anxious, or unable to sleep at night because your mind is troubled all the time - these days? Not at all 12/28/2023 Exercise Vital Sign Answer Date Recorde d On average, how many days pe r week do you engage in moderate to strenuous exercise (like a brisk walk)? 2 days 12/28/2023 On average, how many minutes do you engage in exercise at this level? 20 min 12/28/2023 Hunger Vital Sign Answer Date Recorded Within the past 12 months, y ou worried that your food would run out before you got the money to buy more. Never true 12/28/19 24 Within the past 12 months, t he food you bought just didn't last and you didn't have money to get more. Never true 12/28/2023 PRAPARE - Transportation Answer Date Re corded In the past 12 months, has l ack of transportation kept you from medical appointments or from getting medications? No 12/04 In the past 12 months, has l ack of transportation kept you from meetings, work, or from getting things needed for daily living? No 12/28/2023 Housing Stability Vital Sign Answer Pj e Recorded In the last 12 months, was t here a time when you were not able to pay the mortgage or rent on time? No 12/28/2023 In the last 12 months, how many places have you lived? 1 12/28/2023 In the last 12 months, was t here a time when you did not have a steady place to sleep or slept in a fci (including now)? No 12/28/2023 Comments Unknown Sex and Gender Information Value Date Recorded Sex Assigned at Not on file Legal Sex Female 11:14 PM EDT Gender Identity Not on file Sexual Orientation Not on file Last Filed Vital Signs Vital Sign Reading Time Taken Comments Blood Pressure 132/82 01/25/2025 5:40 PM EDT Pulse 98 01/25/2025 5:40 PM EDT Temperature 37.1 C (98.7 F) 01/25/2025 5:40 PM EDT Respiratory Rate 19 01/25/2025 5:40 PM EDT Oxygen Saturation 98% 01/25/2025 5:40 PM EDT Inhaled Oxygen Concentration - - Weight 92.9 kg (204 lb 12.8 oz) 01/25/2025 5:40 PM EDT Height 160 cm (5' 3 ) 12/12/2024 5:36 PM EDT Body Mass Index 36.28 12/12/2024 5:36 PM EDT Plan of Treatment Upcoming Encounters Date Type Department Care Team (Late st Contact Info) Description 04/26/2025 5:30 PM EDT Office Visit [facility] [address] [place] [address] Judi Jimenez NP [address] [place] [address] 01/29/2026 5:30 PM EDT Office Visit [facility] [address] [place] [address] Judi Jimenez, PLANT PROTECTION SUPERVISOR [address] [place] [address] Health Maintenance Due Date Last Done Comments CT Colonography 1955 Colonoscopy 1955 FIT 1955 FOBT 1955 Sigmoidoscopy 1955 Diabetes: Urine Protein Screening 12/02/2024 024, 12/27/2022 Diabetes: Hemoglobin A1C 03/14/2025 025, 07/14/2024, 03/10/2024, Additional history exists Diabetes: Retinopathy Screening 04/16/2025 Mammogram 01/06/2026 01/06/2025, 11/06, 12/02/2023, Additional history exists Medicare Annual Wellness (AWV) 01/25/2026 0 01/25/2025, 12/28/2023, 12/28/2023 Colorectal Cancer Screening 03/23/2026 FIT-DNA 03/23/2026 03/23/2023, 11/27/2019 Influenza Vaccine Discontinued 08/08/2024, , 07/08/2020 Pneumococcal Vaccine: 65+ Years Discontinued Procedures Procedure Name Priority Date/Time Associated Diagnosis Comments MRI LUMBAR SPINE WO CONTRAST Routine 02/10/2025 10:32 AM EDT MR LUMBAR SPINE WO CON 5 10:10 AM EDT MM TOMOSYNTHESIS SCREENING BI 01/06/2025 3:[address] CHEST W CONTRAST 01/06/2025 1 0:36 AM EDT SCANNED LABS Routine 12/29/2024 9:36 AM EDT POCT GLYCOSYLATED HEMOGLOBIN (HGB A1C) Routine 12/12/2024 5:52 PM EDT Type 2 diabetes mellitus with insulin therapy ([facility]) from Last 3 Months Results * MRI LUMBAR SPINE WO CONTRAST (02/10/2025 10:32 AM EDT) Anatomical Region Laterality Modality Radiographic Joyce ging Kelvin Arreguin MD IMG XR PROCEDURES Final Re sult * MR LUMBAR SPINE WO CON (02/10/2025 10:10 AM EDT) Anatomical Region Laterality Modality Other 02/10/2025 10:1 0 AM EDT Narrative 02/10/2025 10:13 [place] [address] Magnetic Resonance Report Signed Patient: DIONNE ARREOLA MR#: [id number] : 1955 Acct:[id number] Age/Sex: 69 / F ADM Date: 02/10/25 Loc: MRI Attending Dr: Kelvin Arreguin M.D. Ordering Physician: Kelvin Arreguin M.D. Date of Service: 02/10/25 Procedure(s): MR lumbar spine wo con Accession Number(s): [id number] cc: Judi Jimenez PLANT PROTECTION SUPERVISOR; Kelvin Arreguin M.D. [place] [id number] Patient Name: DIONNE ARREOLA MRN: [id number] date: 1955 Sex: F Assigned Patient Location: MRI Current Patient Location: MRI Accession/Order Number: [id number] Exam Date: 02/10/2025 10:07 Report Date: 02/10/2025 10:10 At the request of: KELVIN ARREGUIN MD Procedure: MR lumbar spine wo con EXAMINATION: MRI LUMBAR SPINE WITHOUT IV CONTRAST CLINICAL HISTORY: Chronic low back pain with right leg weakness COMPARISON: None TECHNIQUE: Multiecho imaging was performed in the sagittal and axial planes without contrast administration. FINDINGS: Vertebral body heights appear maintained. No bone marrow edema. Diffuse disc desiccation. Spinal cord terminates in normal position without abnormal cord signal. No paraspinal mass. Visualized retroperitoneum demonstrates no acute findings. At L1-L2: Diffuse broad-based disc bulge is present with facet joint degenerative changes causing mild canal and bilateral neural foraminal stenosis. At L2-L3: Diffuse broad-based disc bulge is present with ligamentum flavum hypertrophy and facet joint degenerative changes causing moderate canal and mild bilateral neural foraminal stenosis. At L3-L4: Diffuse broad-based disc bulge is present with ligamentum flavum hypertrophy and facet joint degenerative changes causing moderate canal and mild bilateral neural foraminal stenosis. At L4-L5: Diffuse broad-based disc bulge is present with ligamentum flavum hypertrophy and facet joint degenerative changes causing moderate canal and mild right-sided neural foraminal stenosis. At L5-S1: Diffuse broad-based disc bulge is present with facet joint degenerative changes. No significant canal stenosis. Moderate left-sided neural foraminal stenosis. 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 Impression dictated by: Hugo Norton Jr., D.OJennifer 02/10/2025 10:10 AM Dictation Location: [place] [address] Electronically authenticated by: [id number] Y Date: 02/10/2025 10:10 Dictated By: Hugo Norton M.D. Signed By: 02/10/25 1013 DD/ 1010 TD/TT: Java Tech: Procedure Note Radiology, Radiologist, - 02/10/2025 [place] [address] Magnetic Resonance Report Signed Patient: DIONNE ARREOLA KMR#: [id number] : 1955cct:[id number] Age/Sex: 69 / FADM Date: 02/10/25 Loc: MRI Attending Dr: Kelvin Arreguin M.D. Ordering Physician: Kelvin Arreguin M.D. Date of Service: 02/10/25 Procedure(s): MR lumbar spine wo con Accession Number(s): [id number] cc: Judi Jimenez NP; Kelvin Arreguin M.D. The [place] [id number] Patient Name: DIONNE ARREOLA MRN: [id number] date: 1955 Sex: F Assigned Patient Location: MRI Current Patient Location: MRI Accession/Order Number: [id number] Exam Date: 02/10/2025 10:07 Report Date: 02/10/2025 10:10 At the request of: KELVIN ARREGUIN MD Procedure: MR lumbar spine wo con EXAMINATION: MRI LUMBAR SPINE WITHOUT IV CONTRAST CLINICAL HISTORY: Chronic low back pain with right leg weakness COMPARISON: None TECHNIQUE: Multiecho imaging was performed in the sagittal and axialplanes without contrast administration. FINDINGS: Vertebral body heights appear maintained. No bone marrow edema. Diffuse disc desiccation. Spinal cord terminates in normal positionwithout abnormal cord signal. No paraspinal mass. Visualized retroperitoneum demonstrates no acute findings. At L1-L2: Diffuse broad-based disc bulge is present with facet joint degenerative changes causing mild canal and bilateral neural foraminal stenosis. At L2-L3: Diffuse broad-based disc bulge is present with ligamentum flavum hypertrophy and facet joint degenerative changes causing moderate [place] mild bilateral neural foraminal stenosis. At L3-L4: Diffuse broad-based disc bulge is present with ligamentum flavum hypertrophy and facet joint degenerative changes causing moderate [place] mild bilateral neural foraminal stenosis. At L4-L5: Diffuse broad-based disc bulge is present with ligamentum flavum hypertrophy and facet joint degenerative changes causing moderate [place] mild right-sided neural foraminal stenosis. At L5-S1: Diffuse broad-based disc bulge is present with facet joint degenerative changes. No significant canal stenosis. Moderate left-sided neural foraminal stenosis. 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 Impression dictated by: Hugo Norton Jr., D.O. 02/10/2025 10:10 AM Dictation Location: [place] [address] Electronically authenticated by: [id number] Y Date: 0:10 Dictated By: Hugo Norton M.D. Signed By:02/10/25 1013 DD/ 1010 TD/TT: Java Tech: us Generic External Data Provider [facility] Final Result * MM TOMOSYNTHESIS SCREENING BI (01/06/2025 3:01 PM EDT) Anatomical Region Laterality Modality Other 01/06/2025 3:01 PM EDT Narrative 01/06/2025 3:02 PM EDT The [place] [id number] Mammography Report Signed Patient: DIONNE ARREOLA MR#: [id number] : 1955 Acct:[id number] Age/Sex: 69 / F ADM Date: 01/06/25 Loc: CT Attending Dr: Judi Jimenez NP Ordering Physician: Judi Jimenez NP Results: Date of Service: 01/06/25 Follow Up: Procedure(s): MM tomosynthesis screening BI Accession Number(s): [id number] cc: Judi Jimenez NP Patient Name: DIONNE ARREOLA MR#: [id number] : 1955 Exam Date: 01/06/2025 Ordering Doctor: ELEANOR Jimenez CNP RADIOLOGY REPORT PROCEDURE: MM TOMOSYNTHESIS SCREENING BI COMPARISON: MM TOMOSYNTHESIS DIAGNOSTIC BI, 12/02/2023. MM TOMOSYNTHESIS SCREENING BI, 03/06/2023. MG MAMM SCREEN SISSY W CAD, 10/10/2020. MG MAMM SISSY DIAG W CAD DIG, 12/08/2013. INDICATIONS: Screening Calculator Name NCI Breast Cancer Risk Assessment Tool 5 Year Breast Cancer Risk 4.70% Lifetime Breast Cancer Risk 14.80% Personal Breast Cancer No Personal Ovarian Cancer No Treatments None Family Cancers Mother with breast cancer at age 65; Aunt-maternal with breast cancer at age 71; Aunt-maternal with breast cancer at age 74; Cousin-maternal with breast cancer at age 50; Grandmother-maternal with uterus cancer at age 80; Cousin-paternal with colon cancer at age 57. LOCATION: [facility] BREAST COMPOSITION: There are scattered areas of fibroglandular density. FINDINGS: DIAGNOSTIC CATEGORY 1--NEGATIVE. RIGHT BREAST: No significant suspicious finding. LEFT BREAST: No significant suspicious finding. RECOMMENDATIONS: ROUTINE MAMMOGRAM AND CLINICAL EVALUATION IN 12 MONTHS. PLEASE NOTE: A NORMAL MAMMOGRAM DOES NOT EXCLUDE THE POSSIBILITY OF BREAST CANCER. A CLINICALLY SUSPICIOUS PALPABLE LUMP SHOULD BE BIOPSIED. Dictated by: Hugo Norton DO on 01/06/2025 at 14:58 Approved by: Hugo Norton DO on 01/06/2025 at 15:01 Dictated By: Hugo Norton M.D. Signed By: 01/06/25 1502 DD/ 1501 TD/TT: Java Tech: Procedure Note Radiology, Radiologist, MD - 01/06/2025 [place] [address] Mammography Report Signed Patient: DIONNE ARREOLA KMR#: [id number] : 1955cct:[id number] Age/Sex: 69 / FADM Date: 01/06/25 Loc: CT Attending Dr: Judi Jimenez NP Ordering Physician: Judi Jimenez NPResults: Date of Service: 01/06/25Follow Up: Procedure(s): MM tomosynthesis screening BI Accession Number(s): [id number] cc: Judi Jimenez NP Patient Name: DIONNE ARREOLA MR#: [id number] : 1955 Exam Date: 01/06/2025 Ordering Doctor: ELEANOR Jimenez CNP RADIOLOGY REPORT PROCEDURE: MM TOMOSYNTHESIS SCREENING BI COMPARISON: MM TOMOSYNTHESIS DIAGNOSTIC BI, 12/02/2023. MMTOMOSYNTHESIS SCREENING BI, 03/06/2023. MG MAMM SCREEN SISSY W CAD, 10/10/2020. MG MAMMBIL DIAG W CAD DIG, 12/08/2013. INDICATIONS: Screening Calculator Name NCI Breast Cancer Risk Assessment Tool 5 Year Breast Cancer Risk 4.70% Lifetime Breast Cancer Risk 14.80% Personal Breast Cancer No Personal Ovarian Cancer No Treatments None Family Cancers Mother with breast cancer at age 65; Aunt-maternal with breast cancer at age 71; Aunt-maternal with breast cancer at age 74; Cousin-maternal with breast cancer at age 50; Grandmother-maternal with uterus cancer at age 80; Cousin-paternal with colon cancer at age 57. LOCATION: [facility] BREAST COMPOSITION: There are scattered areas of fibroglandulardensity. FINDINGS: DIAGNOSTIC CATEGORY 1--NEGATIVE. RIGHT BREAST: No significant suspicious finding. LEFT BREAST: No significant suspicious finding. RECOMMENDATIONS: ROUTINE MAMMOGRAM AND CLINICAL EVALUATION IN 12 MONTHS. PLEASE NOTE: A NORMAL MAMMOGRAM DOES NOT EXCLUDE THE POSSIBILITY OFBREAST CANCER. A CLINICALLY SUSPICIOUS PALPABLE LUMP SHOULD BE BIOPSIED. Dictated by: Hugo Norton DO on 01/06/2025 at 14:58 Approved by: Hugo Norton DO on 01/06/2025 at 15:01 Dictated By: Hugo Norton M.D. Signed By:01/06/25 1502 DD/ 1501 TD/TT: Java Tech: us Judi Jimenez NP [facility] Final Result * CT CHEST W CONTRAST (01/06/2025 10:36 AM EDT) Anatomical Region Laterality Modality Other 01/06/2025 10:3 6 AM EDT Narrative 01/06/2025 10:39 [place] [address] CT Scan Report Signed Patient: DIONNE ARREOLA MR#: [id number] : 1955 Acct:[id number] Age/Sex: 69 / F ADM Date: 01/06/25 Loc: CT Attending Dr: Judi Jimenez NP Ordering Physician: Judi Jimenez NP Date of Service: 01/06/25 Procedure(s): CT chest w con Accession Number(s): [id number] cc: Judi Jimenez NP [place] [id number] Patient Name: DIONNE ARREOLA MRN: [id number] date: 1955 Sex: F Assigned Patient Location: CT Current Patient Location: CT Accession/Order Number: [id number] Exam Date: 01/06/2025 10:12 Report Date: 01/06/2025 10:36 At the request of: JUDI JIMENEZ NP Procedure: CT chest w con CT CHEST WITH INTRAVENOUS CONTRAST: CLINICAL HISTORY: Lung Nodule COMPARISON: CT 07/22/2024 TECHNIQUE: Spiral images were obtained through the chest following intravenous administration of 0 mL of contrast. Images were reviewed using both narrow and wide window settings. This CT exam was performed using one or more following dose reduction techniques: Automated exposure control, adjustment of the mA and/or kV according to patient size, or use of iterative reconstruction technique. FINDINGS: The heart is not enlarged. There is no pericardial effusion. No aortic aneurysm or dissection is seen. There is no mediastinal or hilar lymphadenopathy. There are tiny thyroid hypodensities. Dextroscoliotic curvature and degenerative changes are present at the spine. There is prior cervical fusion. There is minor scarring or atelectasis. There is no other consolidation, pleural effusion or pneumothorax. A tiny 3 mm groundglass nodule is again seen at the anterior right middle lobe on axial image 51. This also still a tiny pleural-based nodular density at the posterior right lower lobe (axial image 71). A 9 mm noncalcified left upper lobe nodule in the perihilar region is still seen and has not significantly changed. No additional nodularity is present. Limited cuts through the upper abdomen show fatty liver. A 3.5 cm hypodense left adrenal nodule is again seen. CT/CT chest w con IMPRESSION: STABLE PULMONARY NODULARITY. SCARRING OR ATELECTASIS. SIMILAR FATTY LIVER AND LEFT ADRENAL NODULE. Impression dictated by: Danna Holloway M.D.01/06/2025 10:36 AM Dictation Location: [place] [address] Electronically authenticated by: [id number] Y Date: 01/06/2025 10:36 Dictated By: Danna Holloway M.D. Signed By: 01/06/25 1039 DD/ 1036 TD/TT: Java Tech: Procedure Note Radiology, Radiologist, - 01/06/2025 [place] [address] CT Scan Report Signed Patient: DIONNE ARREOLA KMR#: [id number] : 7Acct:[id number] Age/Sex: 69 / FADM Date: 01/06/25 Loc: CT Attending Dr: Judi Jimenez NP Ordering Physician: Judi Jimenez NP Date of Service: 01/06/25 Procedure(s): CT chest w con Accession Number(s): [id number] cc: Judi Jimenez NP [address] [address] Patient Name: DIONNE ARREOLA MRN: [id number] date: 1955 Sex: F Assigned Patient Location: CT Current Patient Location: CT Accession/Order Number: [id number] Exam Date: 01/06/2025 10:12 Report Date: 01/06/2025 10:36 At the request of: JUDI JIMENEZ NP Procedure: CT chest w con CT CHEST WITH INTRAVENOUS CONTRAST: CLINICAL HISTORY: Lung Nodule COMPARISON: CT 07/22/2024 TECHNIQUE: Spiral images were obtained through the chest following intravenous administration of 0 mL of contrast. Images were reviewedusing both narrow and wide window settings. This CT exam was performed usingone or more following dose reduction techniques: Automated exposure control, adjustment of the mA and/or kV according to patient size, or use ofiterative reconstruction technique. FINDINGS: The heart is not enlarged. There is no pericardial effusion.No aortic aneurysm or dissection is seen. There is no mediastinal or hilar lymphadenopathy. There are tiny thyroid hypodensities. Dextroscoliotic curvature and degenerative changes are present at the spine. There isprior cervical fusion. There is minor scarring or atelectasis. There is no other consolidation, pleural effusion or pneumothorax. A tiny 3 mm groundglass nodule is again seen at the anterior right middle lobe on axial image 51. This also stilla tiny pleural-based nodular density at the posterior right lower lobe(axial image 71). A 9 mm noncalcified left upper lobe nodule in the perihilarregion is still seen and has not significantly changed. No additional nodularityis present. Limited cuts through the upper abdomen show fatty liver. A 3.5 cmhypodense left adrenal nodule is again seen. CT/CT chest w con IMPRESSION: STABLE PULMONARY NODULARITY. SCARRING OR ATELECTASIS. SIMILAR FATTY LIVER AND LEFT ADRENAL NODULE. Impression dictated by: Danna Holloway M.D.01/06/2025 10:36 AM Dictation Location: [place] [address] Electronically authenticated by: [id number] Y Date: 0:36 Dictated By: aDnna Holloway M.D. Signed By:01/06/25 1039 DD/ 1036 TD/TT: Java Tech: Judi Jimenez NP [facility] Final Result * SCANNED LABS (12/29/2024 9:36 AM EDT) Judi Jimenez NP LAB CHG PERFORMABLES Final Resu lt * (ABNORMAL) POCT glycosylated hemoglobin (Hb A1C) docked device (12/12/2024 5:52 PM EDT) Hemoglobin A1C 6.9 Blood Venous blood specimen / Unknown 12/12/2024 5:52 PM EDT Judi Jimenez NP POINT OF CARE TEST ENTER/EDIT O RDERABLES Edited Result - Final from Last 3 Months Insurance [employer] Care Teams Regional Economist Relationship Specialty Start Date End Date Jamir Hare MD [address] [place] [phone] PCP - General Family Medicine 10/30/23 Jamir Hare MD [address] [place] [address] PCP - Devoted 01/04/24 Judi Jimenez NP [address] [place] [address] Nurse Practitioner Family Medicine 10/05/22
--- OUTSIDE RECORDS SUMMARY | 2025-03-02 14:30 | XMS_ITS | Encounter Summary ---
Author Organization [facility] Address [address] [place] [address] Care Team Providers Care Vice President Client Services Name Role Phone Judi Jimenez NP Unavailable [phone] Jamir Hare MD Primary Care Provider [phone] Jamir Hare MD Unavailable Encounter Details Date Type Department Care Team (Late st Contact Info) Description 12/02/2023 Clinisync Result Encounter [facility] External Department Unsolicited Judi Jimenez NP [address] [place] [address] Social History Tobacco Use Types Packs/Day Years Used Date Smoking Tobacco: Every Day Cigarettes 0.5 34.4 Started: 10/05/1990 Alcohol Use Standard Drinks/Week Comments Not Currently 0 (1 standard drink = 0.6 oz pur e alcohol) PHQ-2 Answer Date Recorded Patient Health Questionnaire-2 Score 0 11/23/2023 Comments Unknown Sex and Gender Information Value Date Recorded Sex Assigned at Not on file Legal Sex Female 11:14 PM EDT Gender Identity Not on file Sexual Orientation Not on file documented as of this encounter Plan of Treatment Upcoming Encounters Date Type Department Care Team (Late st Contact Info) Description 04/26/2025 5:30 PM EDT Office Visit [facility] [address] [place] [phone] Judi Jimenez NP [address] [place] [address] 01/29/2026 5:30 PM EDT Office Visit [facility] [address] [place] [address] Judi Jimenez NP [address] [place] [address] documented as of this encounter Procedures Procedure Name Priority Date/Time Associated Diagnosis Comments MM TOMOSYNTHESIS DIAGNOSTIC BI 12/02/2023 8:57 AM EST documented in this encounter Results * MM TOMOSYNTHESIS DIAGNOSTIC BI (12/02/2023 8:57 AM EST) Anatomical Region Laterality Modality Other 12/02/2023 8:57 AM EST Narrative 12/02/2023 8:57 [place] [address] Mammography Report Signed Patient: VANI ARREOLA MR#: [id number] : 1955 Acct:[id number] Age/Sex: 67 / F ADM Date: 12/02/23 Loc: MAMMO Attending Dr: Judi Jimenez NP Ordering Physician: Judi Jimenez NP Results: Date of Service: 12/02/23 Follow Up: Procedure(s): MM tomosynthesis diagnostic BI Accession Number(s): [id number] cc: Judi Jimenez NP Patient Name: VANI ARREOLA MR#: [id number] : 1955 Exam Date: 12/02/2023 Ordering Doctor: ELEANOR Jimenez CNP RADIOLOGY REPORT PROCEDURE: MM TOMOSYNTHESIS DIAGNOSTIC BI, 12/02/2023, 07:56 US BREAST LT LIMITED, 12/02/2023, 08:18 COMPARISON: MG MAMM SCREEN SISSY W CAD, 10/10/2020. MM TOMOSYNTHESIS SCREENING BI, 03/06/2023. INDICATIONS: Mass OF Left Breast N63.23 Calculator Name NCI Breast Cancer Risk Assessment Tool 5 Year Breast Cancer Risk 4.70% Lifetime Breast Cancer Risk 16.00% Personal Breast Cancer No Personal Ovarian Cancer No Treatments None Family Cancers Mother with breast cancer at age 65; Aunt-maternal with breast cancer at age 71; Aunt-maternal with breast cancer at age 74; Cousin-maternal with breast cancer at age 50; Grandmother-maternal with uterus cancer at age 80; Cousin-paternal with colon cancer at age 57. LOCATION: [facility] BREAST COMPOSITION: Scattered areas fibroglandular density. FINDINGS: DIAGNOSTIC CATEGORY 2--BENIGN FINDING. NO CHANGE FROM COMPARISON. Scattered benign-appearing calcifications are present. Scattered benign-appearing lymph nodes are present. RIGHT BREAST: No significant suspicious finding. LEFT BREAST: No significant suspicious finding. [place] marker demarcates a palpable mass upper-outer quadrant, posterior breast. No mammographic or ultrasound abnormality. Further evaluation should be based on clinical and physical exam RECOMMENDATIONS: ROUTINE MAMMOGRAM AND CLINICAL EVALUATION IN 12 MONTHS. PLEASE NOTE: A NORMAL MAMMOGRAM DOES NOT EXCLUDE THE POSSIBILITY OF BREAST CANCER. A CLINICALLY SUSPICIOUS PALPABLE LUMP SHOULD BE BIOPSIED. Dictated by: Andre Walden MD on 12/02/2023 at 08:53 Approved by: Andre Walden MD on 12/02/2023 at 08:57 Dictated By: Andre Walden M.D. Signed By: 12/02/23 0857 DD/ 0857 TD/TT: Boiler Or Engine Operator: Procedure Note Radiology, Radiologist, - 12/02/2023 [place] [address] Mammography Report Signed Patient: VANI ARREOLA KMR#: [id number] : 1955cct:[id number] Age/Sex: 67 / FADM Date: 12/02/23 Loc: MAMMO Attending Dr: Judi Jimenez NP Ordering Physician: Judi Jimenez NPResults: Date of Service: 12/02/23Follow Up: Procedure(s): MM tomosynthesis diagnostic BI Accession Number(s): [id number] cc: Judi Jimenez NP Patient Name: VANI ARREOLA MR#: [id number] : 1955 Exam Date: 12/02/2023 Ordering Doctor: ELEANOR Jimenez CNP RADIOLOGY REPORT PROCEDURE: MM TOMOSYNTHESIS DIAGNOSTIC BI, 12/02/2023, 07:56 US BREAST LT LIMITED, 12/02/2023, 08:18 COMPARISON: MG MAMM SCREEN SISSY W CAD, 10/10/2020. MM TOMOSYNTHESIS SCREENING BI, 03/06/2023. INDICATIONS: Mass OF Left Breast N63.23 Calculator Name NCI Breast Cancer Risk Assessment Tool 5 Year Breast Cancer Risk 4.70% Lifetime Breast Cancer Risk 16.00% Personal Breast Cancer No Personal Ovarian Cancer No Treatments None Family Cancers Mother with breast cancer at age 65; Aunt-maternal with breast cancer at age 71; Aunt-maternal with breast cancer at age 74; Cousin-maternal with breast cancer at age 50; Grandmother-maternal with uterus cancer at age 80; Cousin-paternal with colon cancer at age 57. LOCATION: [facility] BREAST COMPOSITION: Scattered areas fibroglandular density. FINDINGS: DIAGNOSTIC CATEGORY 2--BENIGN FINDING. NO CHANGE FROM COMPARISON. Scattered benign-appearing calcifications are present. Scattered benign-appearing lymph nodes are present. RIGHT BREAST: No significant suspicious finding. LEFT BREAST: No significant suspicious finding. [place] markerdemarcates a palpable mass upper-outer quadrant, posterior breast. No mammographic or ultrasound abnormality. Further evaluation should be based on clinicaland physical exam RECOMMENDATIONS: ROUTINE MAMMOGRAM AND CLINICAL EVALUATION IN 12 MONTHS. PLEASE NOTE: A NORMAL MAMMOGRAM DOES NOT EXCLUDE THE POSSIBILITY OFBREAST CANCER. A CLINICALLY SUSPICIOUS PALPABLE LUMP SHOULD BE BIOPSIED. Dictated by: Andre Walden MD on 12/02/2023 at 08:53 Approved by: Andre Walden MD on 12/02/2023 at 08:57 Dictated By: Andre Walden M.D. Signed By:12/02/2357 DD/ TD/TT: Boiler Or Engine Operator: Judi Jimenez NP [facility] Final Result documented in this encounter Visit Diagnoses Not on filedocumented in this encounter Care Teams Vice President Client Services Relationship Specialty Start Date End Date Jamir Hare MD [address] [place] [address] PCP - General Family Medicine 10/30/23 Jamir Hare MD [address] [place] [address] PCP - Devoted 01/04/24 Judi Jimenez NP [address] [place] [address] Nurse Practitioner Family Medicine 10/05/22 documented as of this encounter
--- OUTSIDE RECORDS SUMMARY | 2025-03-02 14:30 | XMS_ITS | Encounter Summary ---
Author Organization [facility] Address [address] [place] [address] Care Team Providers Care Contracts Paralegal Name Role Phone Judi Jimenez NP Unavailable [phone] Jamir Hare MD Primary Care Provider [phone] Jamir Hare MD Unavailable Encounter Details Date Type Department Care Team (Late st Contact Info) Description 12/02/2023 Clinisync Result Encounter [facility] External Department Unsolicited Judi Jimenez NP [address] [place] [address] Social History Tobacco Use Types [...] Visit [facility] [address] [place] [address] Judi Jimenez NP [address] [place] [address] 01/29/2026 5:30 PM EDT Office Visit [facility] [address] [place] [phone] Judi Jimenez, RUFINO [address] [place] [address] documented as of this encounter Procedures Procedure Name Priority Date/Time Associated Diagnosis Comments TBH UA (CLEAN/CATCH) MICROSCOPIC IF INDICATE Routine 12/02/2023 9:15 AM EST TBH MICROALB CREAT RATIO RANDOM Routine 12/02/2023 9:15 AM EST US BREAST LT LIMITED 12/02/2023 8:57 AM EST TBH VITAMIN D 25 [place] Routine 12/02/2023 7 :41 AM EST MLR HEMOGLOBIN A1C Routine 12/02/2023 7: 41 AM EST documented in this encounter Results * TBH MICROALB CREAT RATIO RANDOM (12/02/2023 9:15 AM EST) MICROALBUMIN URINE RANDOM <1.3 <=30.0 mg/dL TBH CREATININE URINE RANDOM 89.92 20.00 - 300.00 mg/dL TBH 12/02/2023 9:15 AM EST 12/02/2023 9:27 AM EST Narrative CLINISYNC - 12/02/2023 10:39 AM EST us Judi Jimenez NP CLINISYSHAUN Final Result CLINISYNC TBH * (ABNORMAL) TBH UA (CLEAN/CATCH) MICROSCOPIC IF INDICATE (12/02/2023 9:15 AM EST) COLOR URINE YELLOW YELLOW TBH CLARITY URINE CLEAR CLEAR TBH SPECIFIC GRAVITY URINE 1.010 1.005 - 1.025 TBH PH URINE 6.0 5.0 - 9.0 TBH PROTEIN URINE NEGATIVE NEG/TRACE mg/dL TBH GLUCOSE URINE UA >=1000(A) NEGATIVE mg/dL TBH BILIRUBIN URINE NEGATIVE NEGATIVE TBH KETONES URINE NEGATIVE NEGATIVE mg/dL TBH BLOOD URINE NEGATIVE NEGATIVE TBH NITRITE URINE NEGATIVE NEGATIVE TBH UROBILINOGEN URINE 0.2 0.2 - 1.0 EU/dL TBH LEUKOCYTE ESTERASE URINE NEGATIVE NEGATIVE TBH URINE MICROSCOPIC INDICATED NO TBH 12/02/2023 9:15 AM EST 12/02/2023 9:27 AM EST Narrative CLINISYNC - 12/02/2023 9:36 AM EST Judi Jimenez NP CLINISYNC Final [facility] * US BREAST LT LIMITED (12/02/2023 8:57 AM EST) Anatomical Region Laterality Modality Other 12/02/2023 8:57 AM EST Narrative 12/02/2023 8:58 [place] [address] Ultrasound Report Signed Patient: VANI ARREOLA MR#: [id number] : 1955 Acct:[id number] Age/Sex: 67 / F ADM Date: 12/02/23 Loc: MAMMO Attending Dr: Judi Jimenez NP Ordering Physician: Judi Jimenez NP Date of Service: 12/02/23 Procedure(s): US breast LT limited Accession Number(s): [id number] cc: Judi Jimenez NP Patient Name: VANI ARREOLA MR#: [id number] : 1955 Exam Date: 12/02/2023 Ordering Doctor: [...] colon cancer at age 58. LOCATION: [facility] BREAST COMPOSITION: Scattered areas fibroglandular density. FINDINGS: DIAGNOSTIC CATEGORY 2--BENIGN FINDING. NO CHANGE FROM COMPARISON. Scattered benign-appearing calcifications are present. Scattered benign-appearing lymph nodes are present. RIGHT BREAST: No significant suspicious finding. LEFT BREAST: No significant suspicious finding. [place] marker demarcates a palpable mass upper-outer quadrant, [...] By: Andre Walden M.D. Signed By: 12/02/23 0858 DD/ 0857 TD/TT: Public Address Systems Mechanic: Procedure Note Radiology, Radiologist, - 12/02/2023 [place] [address] Ultrasound Report Signed Patient: VANI ARREOLA KMR#: [id number] : 7Acct:[id number] Age/Sex: 67 / FADM Date: 12/02/23 Loc: MAMMO Attending Dr: Judi Jimenez NP Ordering Physician: Judi Jimenez NP Date of Service: 12/02/23 Procedure(s): US breast LT limited Accession Number(s): [id number] cc: Judi Jimenez NP Patient Name: VANI ARREOLA MR#: [id number] : 1955 Exam Date: 12/02/2023 Ordering Doctor: [...] colon cancer at age 58. LOCATION: [facility] BREAST COMPOSITION: Scattered areas fibroglandular density. FINDINGS: DIAGNOSTIC CATEGORY 2--BENIGN FINDING. NO CHANGE FROM COMPARISON. Scattered benign-appearing calcifications are present. Scattered benign-appearing lymph nodes are present. RIGHT BREAST: No significant suspicious finding. LEFT BREAST: No significant suspicious finding. [place] markerdemarcates a palpable mass upper-outer quadrant, posterior [...] 08:57 Dictated By: Andre Walden M.D. Signed By:12/02/23 0858 DD/ TD/TT: Public Address Systems Mechanic: Judi Jimenez NP CLINISYNC IMAGING Final Result * TBH VITAMIN D 25 [place] (12/02/2023 7:41 AM EST) VITAMIN D 43.3 ng/mL TBH Comment: <20 ng/mL Vit D deficient 20-<30 ng/mL Vit D insufficient 30-100 ng/mL Vit D sufficient >100 ng/mL Potential Toxicity 12/02/2023 7:41 AM EST 12/02/2023 7:44 AM EST Narrative CLINISYNC - 12/02/2023 2:20 PM EST us Judi Jimenez PODIATRIST ORTHOPEDIC CLINISYNC Final Result Performing Organization Address City/[facility] de Phone Number CLINMADI TB * (ABNORMAL) MLR HEMOGLOBIN A1C (12/02/2023 7:41 AM EST) GLYCOHEMOGLOBIN A1C 6.8(H) 4.5 - 6.2 % TB Comment: ADA RECOMMENDED LIMIT 4.0 - 6.0 ADA THERAPEUTIC TARGET < 7.0 ACTION SUGGESTED > 7.0 ESTIMATED AVERAGE GLUCOSE 148 mg/dL TB 12/02/2023 7:41 AM EST 12/02/2023 7:44 AM EST Narrative CLINISYNC - 12/02/2023 10:39 AM EST us Judi Jimenez NP CLINISYNC Final Result Performing Organization Address [facility] de Phone Number SARAH TB documented in this encounter Visit Diagnoses Not on filedocumented in this encounter Care Teams Contracts Paralegal Relationship Specialty Start Date End Date Jamir Hare MD [address] [place] [address] PCP - General Family Medicine 10/30/23 Jamir Hare MD [address] [place] [address] PCP - Devoted 01/04/24 Judi Jimenez NP [address] [place] [address] Nurse Practitioner Family Medicine 10/05/22 documented as of this encounter
--- OUTSIDE RECORDS SUMMARY | 2025-03-02 14:30 | XMS_ITS | Encounter Summary ---
Author Organization [facility] Address [address] [place] [address] Care Team Providers Care Baby Counselor Name Role Phone Judi Jimenez NP Unavailable [phone] Jamir Hare MD Primary Care Provider [phone] Jamir Hare MD Unavailable Encounter Details Date Type Department Care Team (Late st Contact Info) Description 12/29/2024 Orders Only [facility] [address] [place] [address] Judi Jimenez NP [address] [place] [address] Social History Tobacco Use Types Packs/Day Years [...] often do you attend chur ch or temple services? Never 12/28/2023 Do you belong to any clubs o r organizations such as congregation groups, unions, fraternal or athletic groups, or [...] Date Recorded Patient Health Questionnaire-2 Score 1 04/18/2024 [facility] Questionnaire Answer Date Recorded [...] place to sleep or slept in a group home (including now)? No 12/28/2023 Comments Unknown Sex [...] EDT Office Visit [facility] [address] [place] [address] Judi Jimenez NP [address] [place] [address] 01/29/2026 5:30 PM EDT Office Visit [facility] [address] [place] [address] Judi Jimenez NP [address] [place] [address] documented as of this encounter Procedures Procedure Name Priority Date/Time Associated Diagnosis Comments SCANNED LABS Routine 12/29/2024 9:36 AM EDT documented in this encounter Results * SCANNED LABS (12/29/2024 9:36 AM EDT) Judi Jimenez COURT RECORDING MONITOR LAB CHG PERFORMABLES Final Resu lt documented in this encounter Visit Diagnoses Not on filedocumented in this encounter Additional Health Concerns Assessment Noted Time PHQ-9 Depression Total Score: 3 12/28/19 24 5:09 PM EDT documented as of this encounter Care Teams Baby Counselor Relationship Specialty Start Date End Date Jamir Hare MD [address] [place] [address] PCP - General Family Medicine 10/30/23 Jamir Hare MD [address] [place] [address] PCP - Devoted 01/04/24 Judi Jimenez NP [address] [place] [address] Nurse Practitioner Family Medicine 10/05/22 documented as of this encounter
--- OUTSIDE RECORDS SUMMARY | 2025-03-02 14:30 | XMS_ITS | Encounter Summary ---
Author Organization [facility] Address [address] [place] [address] Care Team Providers Care Bottle Assembler Name Role Phone Judi Jimenez NP Unavailable [phone] Jamir Hare MD Primary Care Provider [phone] Jamir Hare MD Unavailable Encounter Details Date Type Department Care Team (Late st Contact Info) Description 07/15/2024 Orders Only [facility] [address] [place] [address] Judi Jimenez NP [address] [place] [address] Social History Tobacco Use Types Packs/Day Years [...] often do you attend chur ch or samaritan services? Never 12/28/2023 Do you belong to any clubs o r organizations such as adventist groups, unions, fraternal or athletic groups, or [...] Recorded Patient Health Questionnaire-2 Score 1 04/18/2024 [facility] Answer Date Recorded [...] place to sleep or slept in a longterm (including now)? No 12/28/2023 Comments Unknown Sex [...] Office Visit [facility] [address] [place] [address] Judi Jimenez NP [address] [place] [address] 01/29/2026 5:30 PM EDT [facility] [address] [place] [address] Judi Jimenez NP [address] [place] [address] documented as of this encounter Procedures Procedure Name Priority Date/Time Associated Diagnosis Comments SCANNED LABS Routine 07/15/2024 8:25 AM EDT documented in this encounter Results * SCANNED LABS (07/15/2024 8:25 AM EDT) Judi Jimenez PERMACULTURE CONTRACTOR LAB CHG PERFORMABLES Final Resu lt documented in this encounter Visit Diagnoses Not on filedocumented in this encounter Additional Health Concerns Assessment Noted Time PHQ-9 Depression Total Score: 3 12/28/19 24 5:09 PM EDT documented as of this encounter Care Teams Bottle Assembler Relationship Specialty Start Date End Date Jamir Hare MD [address] [place] [address] PCP - General Family Medicine 10/30/23 Jamir Hare MD [address] [place] [address] PCP - Devoted 01/04/24 Judi Jimenez NP [address] [place] [address] Nurse Practitioner Family Medicine 10/05/22 documented as of this encounter
--- OUTSIDE RECORDS SUMMARY | 2025-03-02 14:30 | XMS_ITS | Encounter Summary ---
Author Organization [facility] Address [address] [place] [address] Care Team Providers Care Contracting Specialist Name Role Phone Judi Jimenez NP Unavailable [phone] Jamir Hare MD Primary Care Provider [phone] Jamir Hare MD Unavailable Encounter Details Date Type Department Care Team (Late st Contact Info) Description 07/18/2024 Orders Only [facility] [address] [place] [address] Judi Jimenez NP [address] [place] [address] Social History Tobacco Use Types Packs/Day Years [...] often do you attend chur ch or mormon services? Never 12/28/2023 Do you belong to any clubs o r organizations such as scientologist groups, unions, fraternal or athletic groups, or [...] Recorded Patient Health Questionnaire-2 Score 1 04/18/2024 [facility] Questionnaire Answer Date Recorded [...] money to buy more. Never true 12/28/19 Within the past 12 months, t he [...] Office Visit [facility] [address] [place] [address] Judi Jimenez NP [address] [place] [address] 01/29/2026 5:30 PM EDT Office Visit [facility] [address] [place] [address] Judi Jimenez NP [address] [place] [address] documented as of this encounter Visit Diagnoses Not on filedocumented in this encounter Additional Health Concerns Assessment Noted Time PHQ-9 Depression Total Score: 3 12/28/19 5:09 PM EDT documented as of this encounter Care Teams Contracting Specialist Relationship Specialty Start Date End Date Jamir Hare MD [address] [place] [address] PCP - General Family Medicine 10/30/23 Jamir Hare MD [address] [place] [address] PCP - Devoted 01/04/24 Judi Jimenez NP [address] [place] [address] Nurse Practitioner Family Medicine 10/05/22 documented as of this encounter
--- OUTSIDE RECORDS SUMMARY | 2025-03-02 14:30 | XMS_ITS | Encounter Summary ---
Author Organization [facility] Address [address] [place] [address] Care Team Providers Care Statuary Painter Name Role Phone Judi Jimenez NP Unavailable [phone] Jamir Hare MD Primary Care Provider [phone] Jamir Hare MD Unavailable Encounter Details Date Type Department Care Team (Late st Contact Info) Description 07/17/2024 Clinisync Result Encounter [facility] External Department Unsolicited Judi Jimenez NP [address] [place] [address] Social History Tobacco Use Types Packs/Day Years [...] often do you attend chur ch or mormonism services? Never 12/28/2023 Do you belong to any clubs o r organizations such as rastafari groups, unions, fraternal or athletic groups, or [...] Recorded Patient Health Questionnaire-2 Score 1 04/18/2024 [facility] Questionnaire Answer Date Recorded [...] place to sleep or slept in a detention (including now)? No 12/28/2023 Comments Unknown Sex [...] Office Visit [facility] [address] [place] [address] Judi Jimenez NP [address] [place] [address] 01/29/2026 5:30 PM EDT Office Visit [facility] [address] [place] [address] Judi Jimenez NP [address] [place] [address] documented as of this encounter Procedures Procedure Name Priority Date/Time Associated Diagnosis Comments XR KNEE 3 VIEWS RIGHT 07/17/2024 8:57 AM EDT documented in this encounter Results * XR knee 3 views right (07/17/2024 8:57 AM EDT) Anatomical Region Laterality Modality Lower Extremities, Knee Right Radiogra [facility] 07/17/2024 8:57 AM EDT Narrative 07/17/2024 9:00 [place] [address] XRay Report Signed Patient: VANI ARREOLA MR#: [id number] : 1955 Acct:[id number] Age/Sex: 68 / F ADM Date: 07/15/24 Loc: RAD Attending Dr: Judi Jimenez RECYCLE WORKER Ordering Physician: Judi Jimenez NP Date of Service: 07/15/24 Procedure(s): XR knee RT 3V Accession Number(s): [id number] cc: Judi Jimenez NP [place] [address] Patient Name: VANI ARREOLA MRN: [id number] date: 1955 Sex: F Assigned Patient [facility]: [facility] Current Patient Location: Accession/Order Number: [id number] Exam Date: 07/15/2024 16:00 Report Date: 07/17/2024 08:57 At the request of: JUDI JIMENEZ Procedure: XR knee RT 3V PROCEDURE: XR knee RT 3V HISTORY: Chronic pain of right knee, M25.561, G89.29 . COMPARISON: None. 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 No appreciable hardware fracture loosening. No acute bone fracture or dislocation. SOFT TISSUES:No visible soft tissue swelling. EFFUSION:None visible. OTHER: Negative. XR/XR knee RT 3V IMPRESSION: 1. Right knee replacement without evidence of hardware failure or suspicious abnormality. Electronically authenticated by: ALOK BOOKER Date: 07/17/2024 08:57 Dictated By: Alok Booker M.D. Signed By: 07/17/24899 DD/ 6 TD/TT: Scientific Research Manager: Procedure Note Radiology, Radiologist, MD - 07/17/2024 [place] [address] XRay Report Signed Patient: VANI ARREOLA KMR#: [id number] : 1955cct:[id number] Age/Sex: 68 / FADM Date: 07/15/24 Loc: RAD Attending Dr: Judi Jimenez RECYCLE WORKER Ordering Physician: Judi Jimenez NP Date of Service: 07/15/24 Procedure(s): XR knee RT 3V Accession Number(s): [id number] cc: Judi Jimenez NP [facility] [place] [id number] Patient Name: VANI ARREOLA MRN: [id number] date: 1955 Sex: F Assigned Patient Location: [facility] Current Patient Location: Accession/Order Number: [id number] Exam Date: 07/15/2024 16:00 Report Date: 07/17/2024 08:57 At the request of: JUDI JIMENEZ Procedure: XR knee RT 3V PROCEDURE: XR knee RT 3V HISTORY: Chronic pain of right knee, M25.561, G89.29 . COMPARISON: None. 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 Noappreciable hardware fracture loosening. No acute bone fracture or dislocation. SOFT TISSUES:No visible soft tissue swelling. EFFUSION:None visible. OTHER: Negative. XR/XR knee RT 3V IMPRESSION: 1. Right knee replacement without evidence of hardware failure orsuspicious abnormality. Electronically authenticated by: ALOK BOOKER Date: 07/17/2024 08:57 Dictated By: Alok Booker M.D. Signed By:07/17/24899 DD/ 6 TD/TT: Scientific Research Manager: us Judi Jimenez RECYCLE WORKER IMG XR PROCEDURES Final Result documented in this encounter Visit Diagnoses Not on filedocumented in this encounter Additional Health Concerns Assessment Noted Time PHQ-9 Depression Total Score: 3 12/28/19 24 5:09 PM EDT documented as of this encounter Care Teams Statuary Painter Relationship Specialty Start Date End Date Jamir Hare MD [address] [place] [address] PCP - General Family Medicine 10/30/23 Jamir Hare MD [address] [place] [address] PCP - Devoted 01/04/24 Judi Jimenez NP [address] [place] [address] Nurse Practitioner Family Medicine 10/05/22 documented as of this encounter
--- OUTSIDE RECORDS SUMMARY | 2025-03-02 14:30 | XMS_ITS | Encounter Summary ---
Author Organization [facility] Address [address] [place] [address] Care Team Providers Care Reflow Operator Name Role Phone Judi Jimenez NP Unavailable [phone] Jamir Hare MD Primary Care Provider [phone] Jamir Hare MD Unavailable Encounter Details Date Type Department Care Team (Late st Contact Info) Description 07/18/2024 Orders Only [facility] [address] [place] [address] Judi Jimenez NP [address] [place] [address] Social History Tobacco Use Types Packs/Day Years [...] often do you attend chur ch or denominational services? Never 12/28/2023 Do you belong to any clubs o r organizations such as judaism groups, unions, fraternal or athletic groups, or [...] Recorded Patient Health Questionnaire-2 Score 1 04/18/2024 [facility] Answer Date [...] place to sleep or slept in a snf (including now)? No 12/28/2023 Comments Unknown Sex [...] Office Visit [facility] [address] [place] [address] Judi Jimenez NP [address] [place] [address] 01/29/2026 5:30 PM EDT Office Visit [facility] [address] [place] [address] Judi Jimenez NP [address] [place] [address] documented as of this encounter Procedures Procedure Name Priority Date/Time Associated Diagnosis Comments XR KNEE 3 VIEWS RIGHT Routine 07/18/2024 10:06 AM EDT documented in this encounter Results * XR knee 3 views right (07/18/2024 10:06 AM EDT) Anatomical Region Laterality Modality Lower Extremities, Knee Right Radiogra phic Imaging Judi Jimenez BUSINESS PROCESS EXPERT IMG XR PROCEDURES Final Result documented in this encounter Visit Diagnoses Not on filedocumented in this encounter Additional Health Concerns Assessment Noted Time PHQ-9 Depression Total Score: 3 12/28/19 24 5:09 PM EDT documented as of this encounter Care Teams Reflow Operator Relationship Specialty Start Date End Date Jamir Hare MD [address] [place] [address] PCP - General Family Medicine 10/30/23 Jamir Hare MD [address] [place] [address] PCP - Devoted 01/04/24 Judi Jimenez NP [address] [place] [address] Nurse Practitioner Family Medicine 10/05/22 documented as of this encounter
--- OUTSIDE RECORDS SUMMARY | 2025-03-02 14:30 | XMS_ITS | Encounter Summary ---
Author Organization [facility] Address [address] [place] [address] Care Team Providers Care Chute Greaser Name Role Phone Judi Jimenez NP Unavailable [phone] Jamir Hare MD Primary Care Provider [phone] Jamir Hare MD Unavailable Encounter Details Date Type Department Care Team (Late Contact Info) Description 11/18/2023 Abstract [facility] [address] [place] [address] Judi Jimenez NP [address] [place] [address] Social History Tobacco Use Types Packs/Day Years Used Date Smoking Tobacco: Every Day Cigarettes 0.5 34.4 Started: 10/05/1990 Tobacco Cessation:Ready to Q uit: Not Asked; Counseling Given: Not Answered Alcohol Use Standard Drinks/Week Comments Not Currently 0 (1 standard drink = 0.6 oz pur e alcohol) Comments Unknown Sex and Gender Information Value Date Recorded Sex Assigned at Not on file Legal Sex Female 11:14 PM EDT Gender Identity Not on file Sexual Orientation Not on file documented as of this encounter Plan of Treatment Upcoming Encounters Date Type Department Care Team (Late Contact Info) Description 04/26/2025 5:30 PM EDT Office Visit [facility] [address] [place] [address] Judi Jimenez NP [address] [facility] [place] [address] 01/29/2026 5:30 PM EDT Office Visit [facility] [address] [place] [address] Judi Jimenez, RUFINO [address] [place] [address] documented as of this encounter Visit Diagnoses Not on filedocumented in this encounter Care Teams Chute Greaser Relationship Specialty Start Date End Date Jamir Hare MD [address] [place] [address] PCP - General Family Medicine 10/30/23 Jamir Hare MD [address] [place] [address] PCP - Devoted 01/04/24 Judi Jimenez NP [address] [place] [address] Nurse Practitioner Family Medicine 10/05/22 documented as of this encounter
--- OUTSIDE RECORDS SUMMARY | 2025-03-02 14:30 | XMS_ITS | Encounter Summary ---
Author Organization [facility] Address [address] [place] [address] Care Team Providers Care Search Lead Name Role Phone Judi Jimenez NP Unavailable [phone] Jamir Hare MD Primary Care Provider [phone] Jamir Hare MD Unavailable Encounter Details Date Type Department Care Team (Late st Contact Info) Description 02/10/2025 Orders Only [facility] [address] [place] [address] Kelvin Arreguin MD [address] [place] [address] Social History Tobacco Use Types Packs/Day Years [...] often do you attend chur ch or restorationist services? Never 12/28/2023 Do you belong to any clubs o r organizations such as shinto groups, unions, fraternal or athletic groups, or [...] Recorded Patient Health Questionnaire-2 Score 1 01/25/2025 [facility] - Occupational Stress Questionnaire Answer Date Recorded [...] place to sleep or slept in a half-way (including now)? No 12/28/2023 Comments Unknown Sex [...] EDT Office Visit [facility] [address] [place] [address] Judi Jimenez NP [address] [place] [phone] 01/29/2026 5:30 PM EDT Office Visit [facility] [address] [place] [address] Judi Jimenez NP [address] [place] [phone] documented as of this encounter Procedures Procedure Name Priority Date/Time Associated Diagnosis Comments MRI LUMBAR SPINE WO CONTRAST Routine 02/10/2025 10:32 AM EDT documented in this encounter Results * MRI LUMBAR SPINE WO CONTRAST (02/10/2025 10:32 AM EDT) Anatomical Region Laterality Modality Radiographic Joyce ging Kelvin Arreguin MD IMG XR PROCEDURES Final Re sult documented in this encounter Visit Diagnoses Not on filedocumented in this encounter Additional Health Concerns Assessment Noted Time PHQ-9 Depression Total Score: 8 01/26/20 25 5:43 PM EDT documented as of this encounter Care Teams Search Lead Relationship Specialty Start Date End Date Jamir Hare MD [address] [place] [address] PCP - General Family Medicine 10/30/23 Jamir Hare MD [address] [place] [address] PCP - Devoted 01/04/24 Judi Jimenez NP [address] [place] [address] Nurse Practitioner Family Medicine 10/05/22 documented as of this encounter
--- OUTSIDE RECORDS SUMMARY | 2025-03-02 14:30 | XMS_ITS | Encounter Summary ---
Author Organization [facility] Address [address] [place] [address] Care Team Providers Care Manufacturing Machine Operator Name Role Phone Judi Jimenez NP Unavailable [phone] Jamir Hare MD Primary Care Provider [phone] Jamir Hare MD Unavailable Encounter Details Date Type Department Care Team (Late st Contact Info) Description 08/08/2024 External Result Encounter [facility] External Department Unsolicited Judi Jimenez, RUFINO [address] [place] [address] Social History Tobacco Use Types Packs/Day Years [...] often do you attend chur ch or mu-ism services? Never 12/28/2023 Do you belong to any clubs o r organizations such as spiritism groups, unions, fraternal or athletic groups, or [...] Recorded Patient Health Questionnaire-2 Score 1 04/18/2024 [facility] Answer Date [...] place to sleep or slept in a jail (including now)? No 12/28/2023 Comments Unknown Sex and Gender Information Value Date Recorded Sex Assigned at Not on file Legal Sex Female 11:14 PM EDT Gender Identity Not on file Sexual Orientation Not on file documented as of this encounter Miscellaneous Notes * Result Encounter Note - PARMJIT VALLES - 08/08/2024 11:48 AM EST Pt was given results during appt documented in this encounter Plan of Treatment Upcoming Encounters Date Type Department Care Team (Late st Contact Info) Description 04/26/2025 5:30 PM EDT Office Visit [facility] [address] [place] [address] Judi Jimenez NP [address] [place] [address] 01/29/2026 5:30 PM EDT Office Visit [facility] [address] [place] [address] Judi Jimenez NP [address] [place] [address] documented as of this encounter Procedures Procedure Name Priority Date/Time Associated Diagnosis Comments PET/CT SKULL BASE TO MID THIGH 08/08/2024 11:38 AM EST documented in this encounter Results * PET/CT skull base to mid thigh (08/08/2024 11:38 AM EST) Anatomical Region Laterality Modality Body Computed Tomogra phy 08/08/2024 11:3 8 AM EST Impressions 08/08/2024 11:47 AM EST Previously identified 9 mm nodule is not FDG avid. CT follow-up is recommended. Impression dictated by: Hugo Norton Jr., D.O.08/08/2024 11:45 AM Dictation Location: [place] [address] Transcribed By: [facility] 08/08/24 1145 Dictated By: Hugo Norton Jr, DO 08/08/24 1138 Signed By: <Electronically signed by Hugo Norton Jr, DO in OV> 08/08/24 1145 Narrative 08/08/2024 11:47 AM EST [facility] [place] [address] [place] [address] Nuclear Medicine Report Signed Patient: Dionne Arreola MR#: [id number] 46 : 1955 Acct:[id number] Age/Sex: 68 / F ADM Date: 08/08/24 Loc: Room: Type: [facility] Attending Dr: Judi Jimenez Copies to: Hugo Norton Jr, DO Lisa J Aichholz, NP-C Ordering Provider: ILYA Beard Date of Service: [...] fluid. PET/PET tumor init tx strat sb-mt Procedure Note Radiology, Radiologist, - 08/08/2024 [facility] [place] [address] [place] [address] Nuclear Medicine Report Signed Patient: Dionne Arreola KMR#: [id number] 46 : 1955cct:[id number] Age/Sex: 68 / FADM Date: 08/08/24 Loc: Room:Type: [facility] Attending Dr: Judi Jimenez Copies to: Hugo Norton Jr, DO Lisa J Aichholz, NP-C Ordering Provider: ILYA Beard Date of Service: 08/08/24 PET/PET tumor init tx strat sb-mt: Lung nodule PET/CT FUSION IMAGING CLINICAL INFORMATION: Lung nodule COMPARISON : CT chest 07/22/2024 TECHNIQUE: Noncontrasted CT scan from the base of the skull to the upperthigh followed by PET imaging. Multiplanar PET/CT fusion images. Blood Glucose : 135 mg/dL The F-18 FDG 12.51mCi. FINDINGS: Neck: No focal abnormal activity. Chest: No abnormal mediastinal or hilar activity. The previouslyidentified 9 mm nodule involving the left upper lobe is not FDG avid. SUV max 0.87 Abdomen/pelvis: No abnormal activity. Soft tissue/bones: No abnormal activity. CT findings: No pneumothorax. No pericardial or pleural effusions. Nofree air or free fluid. PET/PET tumor init tx strat sb-mt IMPRESSION: Previously identified 9 mm nodule is not FDG avid. CT follow-up isrecommended. Impression dictated by: Hugo Norton Jr., D.O.08/08/2024 11:45 AM Dictation Location: [place] [address] Transcribed By: [facility] 08/08/24 1145 Dictated By: Hugo Norton Jr, DO 08/08/24 1138 Signed By: <Electronically signed by Hugo Norton Jr, DO inOV> 08/08/24 1145 Judi Jimenez QUALITY MEASUREMENT SPECIALIST IMG CT PROCEDURES Final Result documented in this encounter Visit Diagnoses Not on filedocumented in this encounter Additional Health Concerns Assessment Noted Time PHQ-9 Depression Total Score: 3 12/28/19 24 5:09 PM EDT documented as of this encounter Care Teams Manufacturing Machine Operator Relationship Specialty Start Date End Date Jamir Hare MD [address] [place] [address] PCP - General Family Medicine 10/30/23 Jamir Hare MD [address] [place] [address] PCP - Devoted 01/04/24 Judi Jimenez NP [address] [place] [address] Nurse Practitioner Family Medicine 10/05/22 documented as of this encounter
--- OUTSIDE RECORDS SUMMARY | 2025-03-02 14:30 | XMS_ITS | Encounter Summary ---
Author Organization [facility] Address [address] [place] [address] Care Team Providers Care Repairer Name Role Phone Judi Jimenez NP Unavailable [phone] Jamir Hare MD Primary Care Provider [phone] Jamir Hare MD Unavailable Encounter Details Date Type Department Care Team (Late st Contact Info) Description 07/25/2024 Clinisync Result Encounter [facility] External Department Unsolicited Judi Jimenez NP [address] [place] [phone] Social History Tobacco Use Types Packs/Day Years [...] Recorded Patient Health Questionnaire-2 Score 1 04/18/2024 [facility]ational [facility] Questionnaire Answer Date [...] place to sleep or slept in a prison (including now)? No 12/28/2023 Comments Unknown Sex [...] Office Visit [facility] [address] [place] [address] Judi Jimenez NP [address] [place] [address] 01/29/2026 5:30 PM EDT [facility] [address] [place] [address] Judi Jimenez NP [address] [address] documented as of this encounter Procedures Procedure Name Priority Date/Time Associated Diagnosis Comments CT CHEST W CONTRAST 07/25/2024 1 :26 PM EDT documented in this encounter Results * CT CHEST W CONTRAST (07/25/2024 1:26 PM EDT) Anatomical Region Laterality Modality Other 07/25/2024 1:26 PM EDT Narrative 07/25/2024 1:29 PM EDT [address] [address] [address] Scan Report Signed Patient: DIONNE ARREOLA MR#: [id number] : 1955 Acct:[id number] Age/Sex: 68 / F ADM Date: 07/22/24 Loc: CT Attending Dr: Judi Jimenez NP Ordering Physician: Judi Jimenez NP Date of Service: 07/22/24 Procedure(s): CT chest w con Accession Number(s): [id number] cc: Judi Jimenez NP [place] [id number] Patient Name: DIONNE ARREOLA MRN: [id number] date: 1955 Sex: F Assigned Patient Location: CT Current Patient Location: Accession/Order Number: [id number] Exam Date: 07/22/2024 09:09 Report Date: 07/25/2024 13:26 At the request of: JUDI JIMENEZ Procedure: CT chest w con EXAMINATION: CT chest w con HISTORY: Hemoptysis, R04.2 COMPARISON: No relevant comparison available. TECHNIQUE: Multi-planar CT images were created with IV contrast. Axial, Coronal, and Sagittal images. Dose reduction techniques were achieved by using automated exposure control and/or adjustment of mA and/or kV according to patient size and/or use of iterative reconstruction technique. FINDINGS: LUNGS: 9 x 6 mm left upper lobe nodule axial image #38. No additional pulmonary nodule or mass. Mild dependent opacities PLEURA: No mass, effusion, or pneumothorax. VASCULATURE: No abnormality. MARZENA: No mass or adenopathy. MEDIASTINUM: No mass or adenopathy. CARDIAC: No enlargement or pericardial effusion. Coronary arteries: Moderate calcifications AORTA: No aortic aneurysm or dissection. Mild to moderate calcific atherosclerosis CHEST WALL: No mass or axillary adenopathy. BONES: No bone lesion or fracture. LIMITED ABDOMEN: Diffuse hypoattenuation the liver consistent with hepatic steatosis. 3.2 cm left adrenal mass measuring 72 Hounsfield units OTHER: Negative. CT/CT chest w con IMPRESSION: 9 mm left upper lobe nodule, indeterminate. Consider scan to evaluate metabolic status No explanation for the patient's hemoptysis 3.2 cm left adrenal mass Electronically authenticated by: ASH ACUÑA Date: 07/25/2024 13:26 Dictated By: Ash Acuña M.D. Signed By: 07/25/24 1329 DD/ 25 TD/TT: Gear Cutter: Procedure Note Radiology, Radiologist, MD - 07/25/2024 [place] [address] CT Scan Report Signed Patient: DIONNE ARREOLA KMR#: [id number] : 1955cct:[id number] Age/Sex: 68 / FADM Date: 07/22/24 Loc: CT Attending Dr: Judi Jimenez NP Ordering Physician: Judi Jimenez NP Date of Service: 07/22/24 Procedure(s): CT chest w con Accession Number(s): [id number] cc: Judi Jimenez NP [facility] [place] [id number] Patient Name: DIONNE ARREOLA MRN: [id number] date: 1955 Sex: F Assigned Patient Location: CT Current Patient Location: Accession/Order Number: [id number] Exam Date: 07/22/2024 09:09 Report Date: 07/25/2024 13:26 At the request of: JUDI JIMENEZ Procedure: CT chest w con EXAMINATION: CT chest w con HISTORY: Hemoptysis, R04.2 COMPARISON: No relevant comparison available. TECHNIQUE: Multi-planar CT images were created with IV contrast. Axial, Coronal, and Sagittal images. Dose reduction techniques were achieved byusing automated exposure control and/or adjustment of mA and/or kV according to patient size and/or use of iterative reconstruction technique. FINDINGS: LUNGS: 9 x 6 mm left upper lobe nodule axial image #38. No additional pulmonary nodule or mass. Mild dependent opacities PLEURA: No mass, effusion, or pneumothorax. VASCULATURE: No abnormality. MARZENA: No mass or adenopathy. MEDIASTINUM: No mass or adenopathy. CARDIAC: No enlargement or pericardial effusion. Coronary arteries: Moderate calcifications AORTA: No aortic aneurysm or dissection. Mild to moderate calcific atherosclerosis CHEST WALL: No mass or axillary adenopathy. BONES: No bone lesion or fracture. LIMITED ABDOMEN: Diffuse hypoattenuation the liver consistent with hepatic steatosis. 3.2 cm left adrenal mass measuring 72 Hounsfield units OTHER: Negative. CT/CT chest w con IMPRESSION: 9 mm left upper lobe nodule, indeterminate. Consider scan to evaluate metabolic status No explanation for the patient's hemoptysis 3.2 cm left adrenal mass Electronically authenticated by: ASH ACUÑA Date: 07/25/2024 13:26 Dictated By: Ash Acuña M.D. Signed By:07/25/24 1329 DD/ 1326 TD/TT: Gear Cutter: us Judi Jimenez NP [facility] Final Result documented in this encounter Visit Diagnoses Not on filedocumented in this encounter Additional Health Concerns Assessment Noted Time PHQ-9 Depression Total Score: 3 12/28/19 24 5:09 PM EDT documented as of this encounter Care Teams Repairer Relationship Specialty Start Date End Date Jamir Hare MD [address] [place] [address] PCP - General Family Medicine 10/30/23 Jamir Hare MD [address] [place] [address] PCP - Devoted 01/04/24 Judi Jimenez NP [address] [place] [address] Nurse Practitioner Family Medicine 10/05/22 documented as of this encounter
--- OUTSIDE RECORDS SUMMARY | 2025-03-02 14:31 | XMS_ITS | Clinical Summary ---
Author Organization [facility] Address [id number] [facility] [place] [id number] Care Team Providers Care Party Plan Sales Agent Name Role Phone Unavailable Primary Care Provider Unavailabl e Social History Tobacco Use Types Packs/Day Years Used Date Smoking Tobacco: Never Assessed Childcare Answer Date Recorded Childcare Unknown 03/16/2019 Employment Answer Date Recorded Employment Unknown 03/16/2019 Comments Unknown Sex and Gender Information Value Date Recorded Sex Assigned at Not on file Legal Sex Female 12:11 PM EDT Gender Identity Not on file Sexual Orientation Not on file Plan of Treatment Health Maintenance Due Date Last Done Comments Depression Screening 1968 Tobacco Screening 1968 Adult BMI Screening 1974 DTaP,Tdap and Td Vaccines (1 - Tdap) 12/27/1975 Zoster (Shingles) Vaccine (1 of 2) 2006 Fall Risk Screening 2021 Influenza Vaccine 06/05/2025 Medical Devices Not on file Insurance MEDICARE HUMAN MEDICARE
--- OUTSIDE RECORDS SUMMARY | 2025-03-02 14:31 | XMS_ITS | Encounter Summary ---
Author Organization [facility] Address [address] [place] [address] Care Team Providers Care Marketing Researcher Name Role Phone Judi Jimenez NP Unavailable [phone] Jamir Hare MD Primary Care Provider [phone] Jamir Hare MD Unavailable Reason for Visit * Reason Comments Med Change Request Encounter Details Date Type Department Care Team (Late st Contact Info) Description 09/14/2024 Refill [facility] [address] [place] [address] Judi Jimenez, RUFINO [address] [place] [address] Chronic bilateral low back pain without sciatica Social History Tobacco Use Types Packs/Day Years [...] 12/28/2023 How often do you attend chur or adventism services? Never 12/28/2023 Do you belong to any clubs o r organizations such as scientology groups, unions, fraternal or athletic groups, or [...] Recorded Patient Health Questionnaire-2 Score 1 04/18/2024 [facility] - [...] as of this encounter Miscellaneous Notes * Telephone Encounter - Judi Jimenez NP - 09/15/2024 11:45 AM EST Edda, I saw this patient in the office yesterday, she said she had not heard anything about her bone scanresults or any other possible recommendations as it applies to further treatment for her knee. I told her I would reach out to you regarding this with the hopes you would get in contact with her. Thanks, Judi Jimenez DEVELOPMENTAL MATHEMATICS INSTRUCTOR documented in this encounter Plan of Treatment Upcoming Encounters Date Type Department Care Team (Late st Contact Info) Description 04/26/2025 5:30 PM EDT Office Visit [facility] [address] [place] [address] Judi Jimenez NP [address] [place] [address] 01/29/2026 5:30 PM EDT Office Visit [facility] [address] [place] [address] Judi Jimenez, RUFINO [address] [place] [address] documented as of this encounter Visit Diagnoses Diagnosis Chronic bilateral low back pain without sciatica documented in this encounter Additional Health Concerns Assessment Noted Time PHQ-9 Depression Total Score: 3 12/28/19 24 5:09 PM EDT documented as of this encounter Care Teams Marketing Researcher Relationship Specialty Start Date End Date Jamir Hare MD [address] [place] [address] PCP - General Family Medicine 10/30/23 Jamir Hare MD [address] [place] [address] PCP - Devoted 01/04/24 Judi Jimenez NP [address] [place] [address] Nurse Practitioner Family Medicine 10/05/22 documented as of this encounter
--- OUTSIDE RECORDS SUMMARY | 2025-03-02 14:31 | XMS_ITS | Encounter Summary ---
Author Organization [facility] Address [address] [place] [address] Care Team Providers Care Tower Supervisor Name Role Phone Judi Jimenez NP Unavailable [phone] Jamir Hare MD Primary Care Provider [phone] Jamir Hare MD Unavailable Reason for Visit * Reason Comments Med Change Request Encounter Details Date Type Department Care Team (Late st Contact Info) Description 09/14/2024 Refill [facility] [address] [place] [address] Judi Jimenez NP [address] [place] [address] Type 2 diabetes mellitus with insulin therapy ([facility]) Social History Tobacco Use Types Packs/Day Years [...] How often do you attend chur or spiritism services? Never 12/28/2023 Do you belong to any clubs o r organizations such as cheondoism groups, unions, fraternal or athletic groups, or [...] place to sleep or slept in a halfway (including now)? No 12/28/2023 Comments Unknown Sex [...] Office Visit [facility] [address] [place] [address] Judi Jimenez NP [address] [place] [address] 01/29/2026 5:30 PM EDT Office Visit [facility] [address] [place] [phone] Judi Jimenez NP [address] [place] [phone] documented as of this encounter Visit Diagnoses Diagnosis Type 2 diabetes mellitus with insulin therapy (CMS/HCC) documented in this encounter Additional Health Concerns Assessment Noted Time PHQ-9 Depression Total Score: 3 12/28/19 24 5:09 PM EDT documented as of this encounter Care Teams Tower Supervisor Relationship Specialty Start Date End Date Jamir Hare MD [address] [place] [address] PCP - General Family Medicine 10/30/23 Jamir Hare MD [address] [place] [address] PCP - Devoted 01/04/24 Judi Jimenez NP [address] [place] [address] Nurse Practitioner Family Medicine 10/05/22 documented as of this encounter
--- OUTSIDE RECORDS SUMMARY | 2025-03-02 14:31 | XMS_ITS | Encounter Summary ---
Author Organization [facility] Address [address] [place] [address] Care Team Providers Care Candy Starch Mold Printer Name Role Phone Judi Jimenez NP Unavailable [phone] Jamir Hare MD Primary Care Provider [phone] Jamir Hare MD Unavailable Encounter Details Date Type Department Care Team (Late st Contact Info) Description 09/05/2024 Clinisync Result Encounter [facility] External Department Unsolicited Provider, Generic External Data Social History Tobacco Use Types Packs/Day Years [...] often do you attend chur ch or episcopal services? Never 12/28/2023 Do you belong to any clubs o r organizations such as presybeterian groups, unions, fraternal or athletic groups, or [...] Recorded Patient Health Questionnaire-2 Score 1 04/18/2024 [facility] - Occupational Stress [...] place to sleep or slept in a usp (including now)? No 12/28/2023 Comments Unknown Sex [...] Office Visit [facility] [address] [place] [address] Judi Jimenez NP [address] [place] [id number] 01/29/2026 5:30 PM EDT Office Visit [facility] [address] [place] [address] Judi Jimenez NP [address] [place] [address] documented as of this encounter Procedures Procedure Name Priority Date/Time Associated Diagnosis Comments NM BONE IMAGE 3 PHASE 09/05/2024 6:32 AM EST documented in this encounter Results * NM BONE IMAGE 3 PHASE (09/05/2024 6:32 AM EST) Anatomical Region Laterality Modality Radiographic Joyce ging 09/05/2024 6:32 AM EST Narrative 09/05/2024 6:35 [place] [address] Nuclear Medicine Report Signed Patient: DIONNE ARREOLA MR#: [id number] : 1955 Acct:[id number] Age/Sex: 68 / F ADM Date: 09/02/24 Loc: [place] Attending Dr: JUAN JUSTICE SOLAR CONSULTANT Ordering Physician: JUAN JUSTICE NP Date of Service: 09/02/24 Procedure(s): NM bone 3 phase Accession Number(s): [id number] cc: JUAN JUSTICE SOLAR CONSULTANT; Judi Jimenez NP [place] [address] Patient Name: DIONNE ARREOLA MRN: [id number] date: 1955 Sex: F Assigned Patient Location: [place] Current Patient Location: Accession/Order Number: [id number] Exam Date: 09/02/2024 08:00 Report Date: 09/05/2024 06:32 At the request of: JUAN JUSTICE Procedure: NM bone 3 phase EXAMINATION: NM bone 3 phase HISTORY: STATUS POST RIGHT KNEE REPLACEMENT, RIGHT KNEE PAIN COMPARISON: No relevant comparison available. TECHNIQUE: 24.0 mCi Technetium 99m MDP was injected intravenously followed by acquisition of dynamic flow, immediate blood pool, and delayed static images. FINDINGS: IMAGED AREA: Bilateral knees FLOW PHASE: Minimally greater flow within the right leg compared to left. BLOOD POOL PHASE: Normal. DELAYED IMAGES: Mild radiotracer uptake surrounding the prosthetic components of the right knee; not unexpected. Increased radiotracer activity within the left knee, likely due to degenerative changes. OTHER: Negative. NM/NM bone 3 phase IMPRESSION: 1. Mild radiotracer activity surrounding the right knee prosthetic components consistent with chronic remodeling; not unexpected. No specific findings to suggest loosening. 2. Suspect degenerative changes of the left knee. No prior radiographs of the left knee. Electronically authenticated by: ALOK BOOKER Date: 09/05/2024 06:32 Dictated By: Alok Booker M.D. Signed By: 09/05/2435 DD/ 1 TD/TT: Community Outreach Director: Procedure Note Radiology, Radiologist, - 09/05/2024 [place] [address] Nuclear Medicine Report Signed Patient: DIONNE ARREOLA KMR#: [id number] : 1955cct:[id number] Age/Sex: 68 / FADM Date: 09/02/24 Loc: [place] Attending Dr: JUAN JUSTICE SOLAR CONSULTANT Ordering Physician: JUAN JUSTICE NP Date of Service: 09/02/24 Procedure(s): NM bone 3 phase Accession Number(s): [id number] cc: JUAN JUSTICE SOLAR CONSULTANT; Judi Jimenez NP [address] [place] [address] Patient Name: DIONNE ARREOLA MRN: [id number] date: 1955 Sex: F Assigned Patient Location: [place] Current Patient Location: Accession/Order Number: [id number] Exam Date: 09/02/2024 08:00 Report Date: 09/05/2024 06:32 At the request of: JUAN JUSTICE Procedure: NM bone 3 phase EXAMINATION: NC bone 3 phase HISTORY: STATUS POST RIGHT KNEE REPLACEMENT, RIGHT KNEE PAIN COMPARISON: No relevant comparison available. TECHNIQUE: 24.0 mCi Technetium 99m MDP was injected intravenously followedby acquisition of dynamic flow, immediate blood pool, and delayed staticimages. FINDINGS: IMAGED AREA: Bilateral knees FLOW PHASE: Minimally greater flow within the right leg compared to left. BLOOD POOL PHASE: Normal. DELAYED IMAGES: Mild radiotracer uptake surrounding the prostheticcomponents of the right knee; not unexpected. Increased radiotracer activity withinthe left knee, likely due to degenerative changes. OTHER: Negative. NM/NC bone 3 phase IMPRESSION: 1. Mild radiotracer activity surrounding the right knee prostheticcomponents consistent with chronic remodeling; not unexpected. No specific findingsto suggest loosening. 2. Suspect degenerative changes of the left knee. No prior radiographs ofthe left knee. Electronically authenticated by: ALOK BOOKER Date: 09/05/2024 06:32 Dictated By: Alok Booker M.D. Signed By:09/05/24 0635 DD/ 0632 TD/TT: Community Outreach Director: us Generic External Data Provider IMG XR PROCEDURES Final Result documented in this encounter Visit Diagnoses Not on filedocumented in this encounter Additional Health Concerns Assessment Noted Time PHQ-9 Depression Total Score: 3 12/28/19 24 5:09 PM EDT documented as of this encounter Care Teams Candy Starch Mold Printer Relationship Specialty Start Date End Date Jamir Hare MD [address] [place] [phone] PCP - General Family Medicine 10/30/23 Jamir Hare MD [address] [place] [phone] PCP - Devoted 01/04/24 Judi Jimenez NP [address] [place] [phone] Nurse Practitioner Family Medicine 10/05/22 documented as of this encounter
--- OUTSIDE RECORDS SUMMARY | 2025-03-02 14:51 | XMS_ITS | CCD ---
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 Translations: [Acute upper respiratory infection, unspecified] Onset: 05-03-2024 Resolved: 09-14-2024 05-03-2024 Episodic Residual codes; unclassified (20 sources) Menopause present; Translations: [Asymptomatic menopausal state] Onset: 11-23-2023 11-23-2023 Episodic Spondylosis; intervertebral disc disorders; other back problems (20 sources) Chronic low back pain; Translations: [Chronic bilateral low back pain without sciatica] Onset: 09-14-2024 09-14-2024 Episodic Viral infection (20 sources) Disease caused by 2019-nCoV; Translations: [COVID-19] Onset: 06-29-2024 06-29-2024 Episodic Results Test Name Value Interpretation Reference Range Facility [place] [address] Magnetic Resonance Report Signed Patient: VANI KAUFFMAN MR#: [id number] : 1955 Acct:[id number] Age/Sex: 69 / F ADM Date: 02/10/25 Loc: MRI Attending Dr: Farzana Arreguin M.D. Ordering Physician: Farzana Arreguin M.D. Date of Service: 02/10/25 Procedure(s): MR lumbar spine wo con Accession Number(s): [id number] cc: Judi Jimenez BARTENDER; Farzana Arreguin M.D. [place] [id number] Patient Name: VANI KAUFFMAN MRN: [id number] date: 1955 Sex: F Assigned Patient Location: MRI Current Patient Location: MRI Accession/Order Number: [id number] Exam Date: 02/10/2025 10:07 Report Date: 02/10/2025 10:10 At the request of: FARZANA ARREGUIN MD Procedure: MR lumbar spine wo [...] Jr., D.OJennifer 02/10/2025 10:10 AM Dictation Location: [place] [address] Electronically authenticated by: [id number] Y Date: 02/10/2025 10:10 Dictated By: Hugo Norton M.D. Signed By: 02/10/25 1013 DD/ 1010 TD/TT: Change Release Manager: [facility] Radiology, Radiologist, MD - 02/10/2025 [place] [address] Magnetic Resonance Report Signed Patient: VANI KAUFFMAN MR#: [id number] : 1955 Acct:[id number] Age/Sex: 69 / F ADM Date: 02/10/25 Loc: MRI Attending Dr: Farzana Arreguin M.D. Ordering Physician: Farzana Arreguin M.D. Date of Service: 02/10/25 Procedure(s): MR lumbar spine wo con Accession Number(s): [id number] cc: Judi Jimenez NP; Farzana Arreguin M.D. The [place] [id number] Patient Name: VANI KAUFFMAN MRN: [facility]:[id number] date: 1955 Sex: F Assigned Patient Location: MRI Current Patient Location: MRI Accession/Order Number: [id number] Exam Date: 02/10/2025 10:07 Report Date: 02/10/2025 10:10 At the request of: FARZANA ARREGUIN MD Procedure: MR lumbar spine wo [...] stenosis. Impression dictated by: Hugo Norton Jr., DJenniferOJennifer 02/10/2025 10:10 AM Dictation Location: [place] [address] Electronically authenticated by: [id number] Y Date: 02/10/2025 10:10 Dictated By: Hugo Norton M.D. Signed By: 02/10/25 1013 DD/ 1010 TD/TT: Change Release Manager: [facility] [employer] Radiology Study observation (narrative) [facility] MR LUMBAR SPINE WO CONOrdere d By: Radiologist Radiology on 02-10-2025 [facility] [employer] Work Phone: CT CHEST W CONTRASTon [address] [place] [address] CT Scan Report Signed Patient: VANI KAUFFMAN MR#: [id number] : 1955 Acct:[id number] Age/Sex: 69 / F ADM Date: 01/06/25 Loc: CT Attending Dr: Judi Jimenez NP Ordering Physician: Judi Jimenez NP Date of Service: 01/06/25 Procedure(s): CT chest w con Accession Number(s): [id number] cc: Judi Jimenez NP [address] [address] Patient Name: VANI KAUFFMAN MRN: [id number] date: 1955 Sex: F Assigned Patient Location: CT Current Patient Location: CT Accession/Order Number: [id number] Exam Date: 01/06/2025 10:12 Report Date: 01/06/2025 [...] Danna Holloway M.D.01/06/2025 10:36 AM Dictation Location: [place] [address] Electronically authenticated by: [id number] Y Date: 01/06/2025 10:36 Dictated By: Danna Holloway M.D. Signed By: 01/06/25 1039 DD/ 1036 TD/TT: Change Release Manager: [facility] Radiology, Radiologist, MD - 01/06/2025 [place] [address] CT Scan Report Signed Patient: VANI KAUFFMAN MR#: [id number] : 1955 Acct:[id number] Age/Sex: 69 / F ADM Date: 01/06/25 Loc: CT Attending Dr: Judi Jimenez NP Ordering Physician: Judi Jimenez NP Date of Service: 01/06/25 Procedure(s): CT chest w con Accession Number(s): [id number] cc: Judi Jimenez NP [address] [place] [address] Patient Name: VANI KAUFFMAN MRN: [facility]:[id number] date: 1955 Sex: F Assigned Patient Location: CT Current Patient Location: CT Accession/Order Number: [id number] Exam Date: 01/06/2025 10:12 Report Date: 01/06/2025 [...] Danna Holloway M.D.01/06/2025 10:36 AM Dictation Location: [place] [address] Electronically authenticated by: [id number] Y Date: 01/06/2025 10:36 Dictated By: Danna Holloway M.D. Signed By: 01/06/25 1039 DD/ 1036 TD/TT: Change Release Manager: [facility] Radiology Study observation (narrative) [facility] CT CHEST W CONTRASTOrdered B y: Radiologist Radiology on 01-06-2025 [facility] Work Phone: MM TOMOSYNTHESIS SCREENING B Ion 01-06-2025 [place] [address] Mammography Report Signed Patient: VANI KAUFFMAN MR#: [id number] : 1955 Acct:[id number] Age/Sex: 69 / F ADM Date: 01/06/25 Loc: CT Attending Dr: Judi Jimenez NP Ordering Physician: Judi Jimenez NP Results: Date of Service: 01/06/25 Follow Up: Procedure(s): MM tomosynthesis screening BI Accession Number(s): [id number] cc: Judi Jimenez NP Patient Name: VANI KAUFFMAN MR#: [id number] : 1955 Exam Date: 01/06/2025 Ordering Doctor: ELEANOR Jimenez VICE PRESIDENT [employer] RADIOLOGY REPORT PROCEDURE: MM TOMOSYNTHESIS SCREENING BI [...] Cousin-maternal with breast cancer at age 50; Grandmother-materna l with uterus cancer at age 80; Cousin-paternal with colon cancer at age 57. LOCATION: [facility] BREAST COMPOSITION: There are scattered areas [...] Signed By: 01/06/25 1502 DD/ 1501 TD/TT: Change Release Manager: [facility] Radiology, Radiologist, - 01/06/2025 [place] [address] Mammography Report Signed Patient: VANI KAUFFMAN MR#: [id number] : 1955 Acct:[id number] Age/Sex: 69 / F ADM Date: 01/06/25 Loc: CT Attending Dr: Judi Jimenez NP Ordering Physician: Judi Jimenez NP Results: Date of Service: 01/06/25 Follow Up: Procedure(s): MM tomosynthesis screening BI Accession Number(s): [id number] cc: Judi Jimenez NP Patient Name: VANI KAUFFMAN MR#: [id number] : 1955 Exam Date: 01/06/2025 Ordering Doctor: ELEANOR Jimenez VICE PRESIDENT [employer]ELOP[employer] RADIOLOGY REPORT PROCEDURE: MM TOMOSYNTHESIS SCREENING BI [...] Cousin-maternal with breast cancer at age 50; Grandmother-materna l with uterus cancer at age 80; Cousin-paternal with colon cancer at age 57. LOCATION: [facility] BREAST COMPOSITION: There are scattered areas [...] Signed By: 01/06/25 1502 DD/ 1501 TD/TT: Change Release Manager: [facility] Radiology Study observation (narrative) [facility] MM TOMOSYNTHESIS SCREENING B IOrdered By: Radiologist Radiology on 01-06-2025 [facility] Work Phone: HbA1c (Bld) [Mass fraction]o n 12-12-2024 Interpretation and review of laboratory results Abnormal [facility] - Hematology and Cell countson 12-12-2024 HbA1c (Bld) [Mass fraction] 6.90 % [facility] Capillary blood glucose lux urement by glucometer (mass/volume)Ordered By: Juid Jimenez on 08-08-2024 Glucose [Mass/Vol] 135 mg/dL Normal [facility] Comment on above: Random Glucose Refer ence Range is dependent on time and content of last meal. Glucose of more than 200 mg/dL in a nonstressed, ambulatory subject supports the diagnosis of Diabetes Mellitus. Result Comment: [facility] Glucose Reference Range is dependent on time and content of last meal. Glucose of more than 200 mg/dL in a nonstressed, ambulatory subject supports the diagnosis of Diabetes Mellitus. PERFORMED BY: [place] [address] PATHOLOGIST METER REPAIRER HELPER YUE CONWAY M.D. Performed By: #### G LULS #### Point of Care testing , GLUCOSE POCT GLUCOMETERSon 1 10-08-2023 Glucose [Mass/Vol] 135 mg/dL [facility] Comment on above: Random Glucose Refer ence Range is dependent on time and content of last meal. Glucose of more than 200 mg/dL in a nonstressed, ambulatory subject supports the diagnosis of Diabetes Mellitus. [facility] PET tumor init tx strat sb-m ton 08-08-2024 PET tumor init tx strat sb-mt [facility] Main [place] [id number] Nuclear Medicine Report Signed Patient: Vani Kauffman MR#: [id number] : 1955 Acct:[id number] Age/Sex: 68 / F ADM Date: 08/08/24 Loc: Room: Type: [facility] Attending Dr: Judi Jimenez Copies to: Hugo Norton Jr, DO ILYA Beard Ordering Provider: ILYA Beard Date of Service: [...] recommended. Impression dictated by: Hugo Norton Jr., D.OJennifer08/08/2024 11:45 AM Dictation Location: [place] [address] Transcribed By: [facility] 08/08/24 1145 Dictated By: Hugo Norton Jr, DO 08/08/24 1138 Signed By: 08/08/24 1145 Normal [facility] TB UA (CLEAN/CATCH) [facility] OPIC IF INDICATEon 08-04-2024 BILIRUBIN URINE Negative NEGATIVE [facility] BLOOD URINE SMALL Abnormal NEGATIVE [facility] Clarity (U) CLEAR CLEAR [facility] Color (U) LT. RED YELLOW [facility] GLUCOSE URINE UA >=1000 Abnormal NEGATIVE mg/dL [facility] Interpretation and review of laboratory results Abnormal [facility] Ketones Ql (U) Negative NEGATIVE mg/dL [facility] Leukocyte esterase Test strip Ql (U) MODERATE Abnormal NEGATIVE [facility] NITRITE URINE Negative NEGATIVE [facility] pH (U) 6.5 [pH] 5.0 - 9.0 [facility] PROTEIN URINE Negative NEG/TRACE mg/dL [facility] SPECIFIC GRAVITY URINE <=1.005 Abnormal 1.005 - 1.025 [facility] URINE MICROSCOPIC INDICATED YES [facility] UROBILINOGEN URINE 0.2 EU/dL 0.2 - 1.0 EU/dL [facility] Consent for Treatmenton Consent for Treatment [id number] 09#1.00TIFF Normal [facility] EMG Electromyographyon 09-11 EMG Electromyography [id number] 241#1.00TIFF Normal [facility] Neurology Forms- [employer] Neurology Forms- Text [id number] 690#1.00TIFF Normal [facility] Physician Orderon 06-03-2023 Physician Order [id number] E8#1.00CD:127 Normal [facility] LIVER PROFILEon 01-17-2023 Albumin [Mass/Vol] 3.4 g/dL Normal 3.4-5.0 [facility] Comment on above: Performed By: #### C BC #### [facility] [address] [place] [address] Dr. Willam Novoa Albumin/Globulin [Mass ratio] 0.9 {ratio} Normal [facility] Comment on above: Performed By: #### C BC #### [facility] [address] [place] [address] Dr. Willam Novoa ALP [Catalytic activity/Vol] 116 U/L Normal 46-[address] [facility] Comment on above: Performed By: #### C BC #### [facility] [address] [place] [address] Dr. Willam Novoa ALT [Catalytic activity/Vol] 35 U/L Normal 14-[address] [facility] Comment on above: Performed By: #### C BC #### [facility] [address] [place] [address] Dr. Willam Novoa AST [Catalytic activity/Vol] 14 U/L Critically low 15-[address] [facility] Comment on above: Performed By: #### C BC #### [facility] [address] [place] [address] Dr. Willam Novoa BILI, CONJUGATED 0.1 mg/dL Normal 0.0-0.2 [facility] Comment on above: Performed By: #### C BC #### [facility] [address] [place] [address] Dr. Willam Novoa Bilirubin [Mass/Vol] 0.3 mg/dL Normal 0.2-1.[address] [facility] Comment on above: Performed By: #### C BC #### [facility] [address] [place] [address] Dr. Willam Novoa Globulin (S) [Mass/Vol] 4.0 g/dL Normal [facility] Comment on above: Performed By: #### C BC #### [facility] [address] [place] [address] Dr. Willam Novoa Protein [Mass/Vol] 7.4 g/dL Normal 6.4-8.2 [facility] Comment on above: Performed By: #### C BC #### [facility] [address] [place] [address] Dr. Willam Novoa CBC AUTO DIFFon 12-27-2022 BASO # 0.1 103/ul Normal 0.0-0.[address] [facility] Comment on above: Performed By: #### C BC #### [facility] [address] [place] [address] Dr. Willam Novoa Basophils/100 WBC (Bld) 1.0 % Normal 0.2-2.0 [facility] Comment on above: Performed By: #### C BC #### [facility] [address] [place] [address] Dr. Willam Novoa EO # 0.3 103/ul Normal 0.0-0.[address] [facility] Comment on above: Performed By: #### C BC #### [facility] [address] [place] [address] Dr. Willam Novoa Eosinophils/100 WBC (Bld) 3.6 % Normal 0.9-7.[address] [facility] Comment on above: Performed By: #### C BC #### [facility] [address] [place] [address] Dr. Willam Novoa Erythrocyte distribution width (RBC) [Ratio] 13.2 % Normal 11.0-15.[address] [facility] Comment on above: Performed By: #### C BC #### [facility] [address] [place] [address] Dr. Willam Novoa Hematocrit (Bld) [Volume fraction] 45.4 % Normal 36.0-48.[address] [facility] Comment on above: Performed By: #### C BC #### [facility] [address] [place] [address] Dr. Willam Novoa Hemoglobin (Bld) [Mass/Vol] 14.4 g/dL Normal 12.0-16.[address] [facility] Comment on above: Performed By: #### C BC #### [facility] [address] [place] [address] Dr. Willam Novoa IG # 0.03 10e3/ul Normal 0.00-0.[address] [facility] Comment on above: Performed By: #### C BC #### [facility] [address] [place] [address] Dr. Willam Novoa IG % 0.4 % Normal 0.0-0.[address] [facility] Comment on above: Performed By: #### C BC #### [facility] [address] [place] [address] Dr. Willam Novoa LYMPH # 2.5 103/ul Normal 1.2-3.[address] [facility] Comment on above: Performed By: #### C BC #### [facility] [address] [place] [address] Dr. Willam Novoa Lymphocytes/100 WBC (Bld) 29.9 % Normal 20.5-60.[address] [facility] Comment on above: Performed By: #### C BC #### [facility] [address] [place] [address] Dr. Willam Novoa MANUAL DIFF REQ NO Normal [facility] Comment on above: Performed By: #### C BC #### [facility] [address] [place] [address] Dr. Willam Novoa MCH (RBC) [Entitic mass] 29.9 pg Normal 26.7-34.[address] [facility] Comment on above: Performed By: #### C BC #### [facility] [address] [place] [address] [address] Willam Novoa MCHC (RBC) [Mass/Vol] 31.7 g/dL Normal 29.9-35.[address] [facility] Comment on above: Performed By: #### C BC #### [facility] [address] [place] [address] [address] Willam Novoa MCV (RBC) [Entitic vol] 94.4 fL Normal 81.0-99.0 [facility] Comment on above: Performed By: #### C BC #### [facility] [address] [place] [address] [address] Willam Novoa MONO # 0.8 103/ul Normal 0.3-0.[address] [facility] Comment on above: Performed By: #### C BC #### [facility] [address] [place] [address] [address] Willam Novoa Monocytes/100 WBC (Bld) 9.2 % Normal 1.7-12.0 [facility] Comment on above: Performed By: #### C BC #### [facility] [address] [place] [address] Dr. Willam Novoa NEUT # 4.7 103/ul Normal 1.4-6.[address] [facility] Comment on above: Performed By: #### C BC #### [facility] [address] [place] [address] [address] Willam Novoa Neutrophils/100 WBC (Bld) 55.9 % Normal 43.0-75.[address] [facility] Comment on above: Performed By: #### C BC #### [facility] [address] [place] [address] [address] Willam Novoa Platelet mean volume (Bld) [Entitic vol] 9.4 fL Critically low 9.5-13.[address] [facility] Comment on above: Performed By: #### C BC #### [facility] [address] [place] [address] [address] Willam Novoa PLT 311 103/ul Normal 150-[address] [facility] Comment on above: Performed By: #### C BC #### [facility] [address] [place] [address] Dr. Willam Novoa RBC 4.81 106/ul Normal 4.20-5.[address] [facility] Comment on above: Performed By: #### C BC #### [facility] [address] [place] [address] Dr. Willam Novoa WBC 8.4 103/ul Normal 4.0-11.[address] [facility] Comment on above: Performed By: #### C BC #### [facility] [address] [place] [address] Dr. Willam Novoa FREE T4on 12-27-2022 Free T4 [Mass/Vol] 1.13 ng/dL Normal 0.76-1.46 [facility] Comment on above: Performed By: #### C BC #### [facility] [address] [place] [address] Dr. Willam Novoa GLYCOHEMOGLOBIN A1Con 2022 ADA RECOMMENDATION SEE BELOW Normal [facility] Comment on above: Result Comment: ADA RECOMMENDED LIMIT 4.0 - 6.0 ADA THERAPEUTIC TARGET < 7.0 ACTION SUGGESTED > 7.0 Performed By: #### C BC #### [facility] [address] [place] [address] Dr. Willam Novoa Glucose [Mass/Vol] 258 mg/dL Normal [facility] Comment on above: Performed By: #### C BC #### [facility] [address] [place] [address] Dr. Willam Novoa HbA1c (Bld) [Mass fraction] 10.6 % Critically high 4.5-6.[address] [facility] Comment on above: Performed By: #### C BC #### [facility] [address] [place] [address] Dr. Willam Novoa LIPID PROFILEon 12-27-2022 CHOL-HDL RATIO NORM SEE BELOW Normal [facility] Comment on above: Result Comment: 3.3 - 4.4 LOW RISK 4.4 - 7.1 AVERAGE RISK 7.1 - 11.0 MODERATE RISK >11.0 HIGH RISK Performed By: #### C BC #### [facility] [address] [place], [place] [address] Dr. Willam Novoa Cholesterol [Mass/Vol] 158 mg/dL Normal <=200 [facility] Comment on above: Performed By: #### C BC #### [facility] [address] [place], [place] [address] Dr. Willam Novoa Cholesterol in HDL [Mass/Vol] 51 mg/dL Normal 40-[address] [facility] Comment on above: Performed By: #### C BC #### [facility] [address] [place] [address] [address] Willam Novoa Cholesterol in LDL [Mass/Vol] 81.8 mg/dL Normal [facility] Comment on above: Performed By: #### C BC #### [facility] [address] [place] [address] [address] Willam Novoa Cholesterol.total/Xiomy sterol in HDL [Mass ratio] 3.1 {ratio} Normal [facility] Comment on above: Performed By: #### C BC #### [facility] [address] [place] [address] [address] Willam Novoa HDL NORMAL > or = 60 mg/dl - LOW CARDIOVASCULAR RISK <40 mg/dl - HIGH CARDIOVASCULAR RISK Normal [facility] Comment on above: Performed By: #### C BC #### [facility] [address] [place] [address] [address] Willam Novoa LDL CALC NORMAL SEE BELOW Normal [facility] Comment on above: Result Comment: <100 mg/dl OPTIMAL 100 - 129 mg/dl NEAR OR ABOVE OPTIMAL 130 - 159 mg/dl BORDERLINE HIGH 160 - 189 mg/dl HIGH >190 mg/dl VERY HIGH Performed By: #### C BC #### [facility] [address] [place] [address] [address] Willam Novoa Triglyceride [Mass/Vol] 126 mg/dL Normal <=150 T [facility] Comment on above: Performed By: #### C BC #### [facility] [address] [place] [address] [address] Willam Novoa VLDL CALC 25.2 mg/dL Normal [facility] Comment on above: Performed By: #### C BC #### [facility] [address] [place] [address] [address] Willam Novoa MICROALBUMIN, RAND URon 12-04 mALB 1.3 mg/L Normal <=30.[address] [facility] Comment on above: Performed By: #### M ALBR #### [facility] [address] [place] [address] [address] Willam Novoa PROF 14(COMP METB)on 023 Albumin [Mass/Vol] 3.9 g/dL Normal 3.4-5.0 [facility] Comment on above: Performed By: #### C MP, LIPID, TSH #### [facility] [address] [place] [address] Dr. Willam Novoa Albumin/Globulin [Mass ratio] 1.0 {ratio} Normal [facility] Comment on above: Performed By: #### C MP, LIPID, TSH #### [facility] [address] [place] [address] Dr. Willam Novoa ALP [Catalytic activity/Vol] 161 U/L Critically high 46-[address] [facility] Comment on above: Performed By: #### C MP, LIPID, TSH #### [facility] [address] [place] [address] Dr. Willam Novoa ALT [Catalytic activity/Vol] 29 U/L Normal 14-[address] [facility] Comment on above: Performed By: #### C MP, LIPID, TSH #### [facility] [address] [place] [address] [address] Willam Novoa Anion gap [Moles/Vol] 10.7 mmol/L Normal Th [facility] Comment on above: Performed By: #### C MP, LIPID, TSH #### [facility] [address] [place] [address] Dr. Willam Novoa AST [Catalytic activity/Vol] 10 U/L Critically low 15-[address] [facility] Comment on above: Performed By: #### C MP, LIPID, TSH #### [facility] [address] [place] [address] Dr. Willam Novoa Bilirubin [Mass/Vol] 0.3 mg/dL Normal 0.2-1.[address] [facility] Comment on above: Performed By: #### C MP, LIPID, TSH #### [facility] [address] [place] [address] Dr. Willam Novoa Calcium [Mass/Vol] 9.4 mg/dL Normal 8.5-10.1 [facility] Comment on above: Performed By: #### C MP, LIPID, TSH #### [facility] [address] [place] [address] Dr. Willam Novoa Chloride [Moles/Vol] 103 mmol/L Normal 98-[address] [facility] Comment on above: Performed By: #### C MP, LIPID, TSH #### [facility] Laboratory [address] [place] [address] Dr. Willam Novoa CO2 [Moles/Vol] 28.3 mmol/L Normal 21.0-32.0 [facility] Comment on above: Performed By: #### C MP, LIPID, TSH #### [facility] Laboratory [address] [place] [address] Dr. Willam Novoa Creatinine [Mass/Vol] 0.72 mg/dL Normal 0.55-1.[address] [facility] Comment on above: Performed By: #### C MP, LIPID, TSH #### [facility] Laboratory [address] [place] [address] Dr. Willam Novoa EGFR-AF SERBIAN >60 Normal >=60 [facility] Comment on above: Performed By: #### C MP, LIPID, TSH #### [facility] [address] [place] [address] Dr. Willam Novoa EGFR-NON AF SERBIAN >60 Normal >=[address] [facility] Comment on above: Performed By: #### C MP, LIPID, TSH #### [facility] [address] [place] [address] Dr. Willam Novoa Globulin (S) [Mass/Vol] 3.8 g/dL Normal [facility] Comment on above: Performed By: #### C MP, LIPID, TSH #### [facility] [address] [address] [address] Willam Novoa Glucose [Mass/Vol] 287 mg/dL Critically high 74-106 [facility] Comment on above: Performed By: #### C MP, LIPID, TSH #### [facility] [address] [place] [address] Dr. Willam Novoa Potassium [Moles/Vol] 4.0 mmol/L Normal 3.5-5.[address] [facility] Comment on above: Performed By: #### C MP, LIPID, TSH #### [facility] [address] [place] [address] Dr. Willam Novoa Protein [Mass/Vol] 7.7 g/dL Normal 6.4-8.2 [facility] Comment on above: Performed By: #### C MP, LIPID, TSH #### [facility] [address] [place] [address] Dr. Willam Novoa Sodium [Moles/Vol] 138 mmol/L Normal 136-145 [facility] Comment on above: Performed By: #### C MP, LIPID, TSH #### [facility] [address] [place] [address] Dr. Willam Novoa Urea nitrogen [Mass/Vol] 13.0 mg/dL Normal 7.0-18.[address] [facility] Comment on above: Performed By: #### C MP, LIPID, TSH #### [facility] [address] [place] [address] Dr. Willam Novoa Urea nitrogen/Creatinine [Mass ratio] 18.1 mg/mg Normal [facility] Comment on above: Performed By: #### C MP, LIPID, TSH #### [facility] [address] [place] [address] Dr. Willam Novoa TSHon 12-27-2022 TSH 1.361 uIU/mL Normal 0.358-3.740 [facility] Comment on above: Performed By: #### C MP, LIPID, TSH #### [facility] [address] [place] [address] Dr. Willam Novoa UA RANDOM W/MICROSCOPICon BACTERIA NONE SEEN Normal NONE SEEN [facility] Comment on above: Performed By: #### U AMIC #### [facility] [address] [address] [address] Willam Novoa Bilirubin Ql (U) Negative Normal NEGATIVE [facility] Comment on above: Performed By: #### U AMIC #### [facility] [address] [address] [address] Willam Novoa CAST NONE SEEN Normal NONE SEEN [facility] Comment on above: Performed By: #### U AMIC #### [facility] [address] [address] [address] Willam Novoa Clarity (U) CLEAR Normal CLEAR [facility] Comment on above: Performed By: #### U AMIC #### [facility] [address] [address] [address] Willam Novoa Color (U) LT. YELLOW Normal YELLOW [facility] Comment on above: Performed By: #### U AMIC #### [facility] [address] [address] [address] Willam Novoa Crystals LM Nom (Urine sed) NONE SEEN Normal NONE SEEN [facility] Comment on above: Performed By: #### U AMIC #### [facility] [address] [address] [address] Willam Novoa Epithelial cells LM Ql (Urine sed) RARE Normal NONE SEEN /RARE [facility] Comment on above: Performed By: #### U AMIC #### [facility] [address] [address] [address] Willam Novoa Glucose Ql (U) >1000 Abnormal NEGATIVE The [facility] Comment on above: Performed By: #### U AMIC #### [facility] [address] [address] [address] Willam Novoa Hemoglobin Ql (U) Negative Normal NEGATIVE The [facility] Comment on above: Performed By: #### U AMIC #### [facility] [address] [address] [address] Willam Novoa Ketones Ql (U) Negative Normal NEGATIVE The [facility] Comment on above: Performed By: #### U AMIC #### [facility] [address] [address] [address] Willam Novoa LEUKOCYTES Negative Normal NEGATIVE [facility] Comment on above: Performed By: #### U AMIC #### [facility] [address] [address] [address] Willam Novoa MUCOUS NONE SEEN Normal NONE SEEN [facility] Comment on above: Performed By: #### U AMIC #### [facility] [address] [address] [address] Willam Novoa Nitrite Ql (U) Negative Normal NEGATIVE [facility] [place] [facility] Comment on above: Performed By: #### U AMIC #### [facility] [address] [address] [address] Willam Novoa pH (U) 6.0 [pH] Normal 5-[address] [facility] Comment on above: Performed By: #### U AMIC #### [facility] [address] [address] [address] Willam Novoa RBC NONE SEEN Abnormal 0-2 [facility] Comment on above: Performed By: #### U AMIC #### [facility] [address] [place] [address] Dr. Willam Novoa SPEC GRAVITY <=1.005 Abnormal 1.005-<=1.025 [facility] Comment on above: Performed By: #### U AMIC #### [facility] [address] [place] [address] Dr. Willam Novoa UA PROTEIN Negative Normal NEGATIVE/ TRACE [facility] Comment on above: Performed By: #### U AMIC #### [facility] [address] [place] [address] Dr. Willam Novoa Urobilinogen Qn (U) 0.2 {Kalpesh'U}/dL Normal 0.2 - 1. [address] [facility] Comment on above: Performed By: #### U AMIC #### [facility] [address] [place] [address] Dr. Willam Novoa WBC NONE SEEN Normal NONE SEEN [facility] Comment on above: Performed By: #### U AMIC #### [facility] [address] [place] [address] Dr. Willam Novoa MICROALBUMIN URINEon 022 Albumin, Urine 5.9 ug/mL Normal Not Estab. The [facility] Comment on above: Performed By: #### M ALBLC #### [facility] [address] [place] [address] Dr. Willam Novoa T4 LABCORPon 05-25-2022 T4 [Mass/Vol] 8.3 ug/dL Normal 4.5-12.0 [facility] Comment on above: Performed By: #### C BC #### [facility] [address] [place] [address] Dr. Willam Novoa CBC AUTO DIFFon 05-24-2022 BASO # 0.1 103/ul Normal 0.0-0.[address] [facility] Comment on above: Performed By: #### C BC #### [facility] [address] [place] [address] Dr. Willam Novoa Basophils/100 WBC (Bld) 0.9 % Normal 0.2-2.0 [facility] Comment on above: Performed By: #### C BC #### [facility] [address] [place] [address] Dr. Willam Novoa EO # 0.3 103/ul Normal 0.0-0.[address] [facility] Comment on above: Performed By: #### C BC #### [facility] [address] [place] [address] Dr. Willam Novoa Eosinophils/100 WBC (Bld) 3.5 % Normal 0.9-7.[address] [facility] Comment on above: Performed By: #### C BC #### [facility] [address] [place] [address] Dr. Willam Novoa Erythrocyte distribution width (RBC) [Ratio] 13.2 % Normal 11.0-15.[address] [facility] Comment on above: Performed By: #### C BC #### [facility] [address] [place] [address] Dr. Willam Novoa Hematocrit (Bld) [Volume fraction] 45.7 % Normal 36.0-48.[address] [facility] Comment on above: Performed By: #### C BC #### [facility] [address] [address] [address] Willam Novoa Hemoglobin (Bld) [Mass/Vol] 14.3 g/dL Normal 12.0-16.[address] [facility] Comment on above: Performed By: #### C BC #### [facility] [address] [address] [address] Willam Novoa IG # 0.03 10e3/ul Normal 0.00-0.[address] [facility] Comment on above: Performed By: #### C BC #### [facility] [address] [place] [address] Dr. Willam Novoa IG % 0.3 % Normal 0.0-0.[address] [facility] Comment on above: Performed By: #### C BC #### [facility] [address] [place] [address] Dr. Willam Novoa LYMPH # 3.5 103/ul Normal 1.2-3.[address] [facility] Comment on above: Performed By: #### C BC #### [facility] [address] [place] [address] Dr. Willam Novoa Lymphocytes/100 WBC (Bld) 38.7 % Normal 20.5-60.[address] [facility] Comment on above: Performed By: #### C BC #### [facility] [address] [place] [address] Dr. Willam Novoa MANUAL DIFF REQ NO Normal [facility] Comment on above: Performed By: #### C BC #### [facility] [address] [place] [address] Dr. Willam Novoa MCH (RBC) [Entitic mass] 29.8 pg Normal 26.7-34.0 [facility] Comment on above: Performed By: #### C BC #### [facility] [address] [place] [address] Dr. Willam Novoa MCHC (RBC) [Mass/Vol] 31.3 g/dL Normal 29.9-35.2 [facility] Comment on above: Performed By: #### C BC #### [facility] [address] [address] [address] Willam Novoa MCV (RBC) [Entitic vol] 95.2 fL Normal 81.0-99.0 [facility] Comment on above: Performed By: #### C BC #### [facility] [address] [address] [address] Willam Novoa MONO # 0.8 103/ul Normal 0.3-0.[address] [facility] Comment on above: Performed By: #### C BC #### [facility] [address] [address] [address] Willam Novoa Monocytes/100 WBC (Bld) 9.3 % Normal 1.7-12.0 [facility] Comment on above: Performed By: #### C BC #### [facility] [address] [place] [address] Dr. Willam Novoa NEUT # 4.2 103/ul Normal 1.4-6.[address] [facility] Comment on above: Performed By: #### C BC #### [facility] [address] [place] [address] Dr. Willam Novoa Neutrophils/100 WBC (Bld) 47.3 % Normal 43.0-75.[address] [facility] Comment on above: Performed By: #### C BC #### [facility] [address] [place] [address] Dr. Willam Novoa Platelet mean volume (Bld) [Entitic vol] 9.3 fL Critically low 9.5-13.[address] [facility] Comment on above: Performed By: #### C BC #### [facility] [address] [place] [address] Dr. Willam Novoa PLT 295 103/ul Normal 150-450 [facility] Comment on above: Performed By: #### C BC #### [facility] [address] [place] [address] Dr. Willam Novoa RBC 4.80 106/ul Normal 4.20-5.[address] [facility] Comment on above: Performed By: #### C BC #### [facility] [address] [place] [address] Dr. Willam Novoa WBC 8.9 103/ul Normal 4.0-11.0 [facility] Comment on above: Performed By: #### C BC #### [facility] [address] [place] [address] Dr. Willam Novoa GLYCOHEMOGLOBIN A1Con 2021 ADA RECOMMENDATION SEE BELOW Normal [facility] Comment on above: Result Comment: ADA RECOMMENDED LIMIT 4.0 - 6.0 ADA THERAPEUTIC TARGET < 7.0 ACTION SUGGESTED > 7.0 Performed By: #### A 1C #### [facility] [address] [place] [address] Dr. Willam Novoa Glucose [Mass/Vol] 200 mg/dL Normal [facility] Comment on above: Performed By: #### A 1C #### [facility] [address] [place] [address] Dr. Willam Novoa HbA1c (Bld) [Mass fraction] 8.6 % Critically high 4.5-6.[address] [facility] Comment on above: Performed By: #### A 1C #### [facility] [address] [place] [address] Dr. Willam Novoa PROF 14(COMP METB)on 022 Albumin [Mass/Vol] 4.1 g/dL Normal 3.4-5.0 [facility] Comment on above: Performed By: #### T SAVANNAH, CMP #### [facility] [address] [place] [address] Dr. Willam Novoa Albumin/Globulin [Mass ratio] 1.2 {ratio} Normal [facility] Comment on above: Performed By: #### T SH, CMP #### [facility] [address] [place] [address] Dr. Willam Novoa ALP [Catalytic activity/Vol] 121 U/L Critically high 46-116 [facility] Comment on above: Performed By: #### T SAVANNAH, CMP #### [facility] [address] [place] [address] Dr. Willam Novoa ALT [Catalytic activity/Vol] 31 U/L Normal 14-59 [facility] Comment on above: Performed By: #### T SH, CMP #### [facility] [address] [address] [address] Willam Novoa Anion gap [Moles/Vol] 15.9 mmol/L Normal Th [facility] Comment on above: Performed By: #### T SH, CMP #### [facility] [address] [address] [address] Willam Novoa AST [Catalytic activity/Vol] 13 U/L Critically low 15-[address] [facility] Comment on above: Performed By: #### T SH, CMP #### [facility] [address] [address] [address] Willam Novoa Bilirubin [Mass/Vol] 0.4 mg/dL Normal 0.2-1.[address] [facility] Comment on above: Performed By: #### T SH, CMP #### [facility] [address] [address] [address] Willam Novoa Calcium [Mass/Vol] 9.3 mg/dL Normal 8.5-10.1 [facility] Comment on above: Performed By: #### T SH, CMP #### [facility] [address] [address] [address] Willam Novoa Chloride [Moles/Vol] 103 mmol/L Normal 98-[address] [facility] Comment on above: Performed By: #### T SH, CMP #### [facility] [address] [address] [address] Willam Novoa CO2 [Moles/Vol] 27.1 mmol/L Normal 21.0-32.0 [facility] Comment on above: Performed By: #### T SH, CMP #### [facility] [address] [address] [address] Willam Novoa Creatinine [Mass/Vol] 0.74 mg/dL Normal 0.55-1.[address] [facility] Comment on above: Performed By: #### T SH, CMP #### [facility] [address] [address] [address] Willam Novoa EGFR-AF SERBIAN >60 Normal >=60 [facility] Comment on above: Performed By: #### T SH, CMP #### [facility] [address] [address] [address] Willam Novoa EGFR-NON AF SERBIAN >60 Normal >=[address] [facility] Comment on above: Performed By: #### T SH, CMP #### [facility] [address] [address] [address] Willam Novoa Globulin (S) [Mass/Vol] 3.3 g/dL Normal [facility] Comment on above: Performed By: #### T SH, CMP #### [facility] [address] [address] [address] Willam Novoa Glucose [Mass/Vol] 194 mg/dL Critically high 74-106 [facility] Comment on above: Performed By: #### T SH, CMP #### [facility] [address] [address] [address] Willam Novoa Potassium [Moles/Vol] 4.0 mmol/L Normal 3.5-5.[address] [facility] Comment on above: Performed By: #### T SH, CMP #### [facility] [address] [address] [address] Willam Novoa Protein [Mass/Vol] 7.4 g/dL Normal 6.4-8.2 [facility] Comment on above: Performed By: #### T SH, CMP #### [facility] [address] [address] [address] Willam Novoa Sodium [Moles/Vol] 142 mmol/L Normal 136-145 [facility] Comment on above: Performed By: #### T SH, CMP #### [facility] [address] [address] [address] Willam Novoa Urea nitrogen [Mass/Vol] 19.0 mg/dL Critically high 7.0-18.[address] [facility] Comment on above: Performed By: #### T SH, CMP #### [facility] [address] [address] [address] Willam Novoa Urea nitrogen/Creatinine [Mass ratio] 25.7 mg/mg Normal [facility] Comment on above: Performed By: #### T SH, CMP #### [facility] [address] [place], [place] [address] Dr. Willam Novoa TSHon 05-24-2022 TSH 1.350 uIU/mL Normal 0.358-3.740 [facility] Comment on above: Performed By: #### T SH, CMP #### [facility] [id number] Willam Novoa Vital Signs Date Time Vital Sign Value Performing Clinician Facility 01-25-2025 17:40-0400 Body mass index (BMI) [Ratio] 36.28 kg/m2 Judirico Jimenez B[employer]ENDER Work Phone: [facility] 01-25-2025 17:40-0400 Body temperature 98.71 [degF] Judi Norbertz B[employer]ENDER Work Phone: [facility] 01-25-2025 17:40-0400 Body weight 92.9 kg Judi Aichsimiz B[employer]ENDER Work Phone: [facility] 01-25-2025 17:40-0400 Diastolic blood pressure 82 mm[Hg] Judi Aichsimiz B[employer]ENDER Work Phone: [facility] 01-25-2025 17:40-0400 Heart rate 98 /min Judi Aichholz B[employer]ENDER Work Phone: [facility] 01-25-2025 17:40-0400 Respiratory rate 19 /min Judi Aichsimiz B[employer]ENDER Work Phone: [facility] 01-25-2025 17:40-0400 SaO2% (BldA) [Mass fraction] 98 % Judi Aichsimiz B[employer]ENDER Work Phone: [facility] 01-25-2025 17:40-0400 Systolic blood pressure 132 mm[Hg] Judi Aichholz B[employer]ENDER Work Phone: [facility] 12-12-2024 17:36-0400 Body height 160 cm Judi Aichsimiz B[employer]ENDER Work Phone: [facility] 12-12-2024 17:36-0400 Body mass index (BMI) [Ratio] 36.99 kg/m2 Judirico Toussaintz B[employer]ENDER Work Phone: [facility] 12-12-2024 17:36-0400 Body temperature 97.81 [degF] Judi Toussaintz B[employer]ENDER Work Phone: [facility] 12-12-2024 17:36-0400 Body weight 94.71 kg Judi Bhavaniholz B[employer]ENDER Work Phone: [facility] 12-12-2024 17:36-0400 Diastolic blood pressure 88 mm[Hg] Judi Nilahholz B[employer]ENDER Work Phone: [facility] 12-12-2024 17:36-0400 Heart rate 108 /min Judi Bhavaniholz B[employer]ENDER Work Phone: [facility] 12-12-2024 17:36-0400 Respiratory rate 19 /min Judi Bhavaniholz B[employer]ENDER Work Phone: [facility] 12-12-2024 17:36-0400 SaO2% (BldA) [Mass fraction] 92 % Judi Bhavaniholz B[employer]ENDER Work Phone: [facility] 12-12-2024 17:36-0400 Systolic blood pressure 142 mm[Hg] Judi Beckhamholz B[employer]ENDER Work Phone: [facility] 09-14-2024 17:31-0500 Body height 160 cm Judi Bhavaniholz B[employer]ENDER Work Phone: [facility] 09-14-2024 17:31-0500 Body mass index (BMI) [Ratio] 35.89 kg/m2 Judi Nilahholz B[employer]ENDER Work Phone: [facility] 09-14-2024 17:31-0500 Body temperature 98.49 [degF] Judi Bhavaniholz B[employer]ENDER Work Phone: [facility] 09-14-2024 17:31-0500 Body weight 91.9 kg Judi Bhavaniholz B[employer]ENDER Work Phone: [facility] 09-14-2024 17:31-0500 Diastolic blood pressure 84 mm[Hg] Judi Aichholz B[employer]ENDER Work Phone: [facility] 09-14-2024 17:31-0500 Heart rate 97 /min Judi Aichholz B[employer]ENDER Work Phone: [facility] 09-14-2024 17:31-0500 Respiratory rate 18 /min Judi Aichholz B[employer]ENDER Work Phone: [facility] 09-14-2024 17:31-0500 SaO2% (BldA) [Mass fraction] 95 % Judi Aichholz B[employer]ENDER Work Phone: [facility] 09-14-2024 17:31-0500 Systolic blood pressure 132 mm[Hg] Judi Aichholz B[employer]ENDER Work Phone: [facility] 07-13-2024 17:43-0400 Body height 160 cm Judi Aichholz BARTENDER Work Phone: [facility] 07-13-2024 17:43-0400 Body mass index (BMI) [Ratio] 36 kg/m2 Judi Aichholz B[employer]ENDER Work Phone: [facility] 07-13-2024 17:43-0400 Body temperature 97.5 [degF] Judi Nilahholz B[employer]ENDER Work Phone: [facility] 07-13-2024 17:43-0400 Body weight 92.17 kg Judi Aichholz B[employer]ENDER Work Phone: [facility] 07-13-2024 17:43-0400 Diastolic blood pressure 82 mm[Hg] Judi Aichholz BARTENDER Work Phone: [facility] 07-13-2024 17:43-0400 Heart rate 97 /min Judi Aichholz B[employer]ENDER Work Phone: [facility] 07-13-2024 17:43-0400 Respiratory rate 18 /min Judi Aichholz BARTENDER Work Phone: [facility] [employer] 07-13-2024 17:43-0400 SaO2% (BldA) [Mass fraction] 98 % Judi Tony B[employer]ENDER Work Phone: [facility] 07-13-2024 17:43-0400 Systolic blood pressure 124 mm[Hg] Judi Beckhamjose BARTENDER Work Phone: [facility] 12-18-2021 11:00-0400 Body height 165.1 cm Yash Jeffries Other [employer] Other 12-18-2021 11:00-0400 Body mass index (BMI) [Ratio] 36.27 kg/m2 Yash Jeffries Other [employer] Other 12-18-2021 11:00-0400 Body weight 98.88 kg Yash Jeffries Other [employer] Other 08-12-2021 14:00-0500 Body height 165.1 cm Yash Jeffries Other [employer] Other 08-12-2021 14:00-0500 Body mass index (BMI) [Ratio] 36.27 kg/m2 Yash Jeffries Other [employer] Other 08-12-2021 14:00-0500 Body weight 98.88 kg Yash Jeffries Other [employer] Other 08-12-2021 14:00-0500 Diastolic blood pressure 79 mm[Hg] Yash Jeffries Other [employer] Other 08-12-2021 14:00-0500 Systolic blood pressure 130 mm[Hg] Yash Jeffries Other [employer] Other Encounters Encounter Date Encounter Type Care Provider Facility Start: 02-10-2025 End: 02-10-2025 [facility] Result Encounter Generic External Data Provider [facility] External Department Unsolicited Start: 02-10-2025 End: 02-10-2025 [facility] Result Encounter Generic External Data Provider [facility] External Department Unsolicited Start: 01-25-2025 End: 01-25-2025 Patient encounter procedure Judi Jimenez B[employer]ENDER Work Phone: [facility] Comment on above: Encounter for subseq uent annual wellness visit (AWV) in Medicare patient (Primary Dx); Type 2 diabetes mellitus with diabetic neuropathy, unspecified whether exterminator insulin use ([facility]/HCC); Primary hypertension ([facility]); Gastro-esophageal reflux disease without esophagitis; Morbid (severe) obesity due to excess calories ([facility]); Type 2 diabetes mellitus with insulin therapy ([facility]); Mixed hyperlipidemia ([facility]); Mixed simple and mucopurulent chronic bronchitis ([facility]); Vitamin D deficiency; Gastroesophageal reflux disease without esophagitis Start: 01-25-2025 End: 01-25-2025 ambulatory JUDI TONY Not Available Start: 01-25-2025 End: 01-25-2025 Bamboo flowsheet Judi Jimenez BARTENDER Work Phone: [facility] Start: 01-25-2025 End: 01-25-2025 Bamboo flowsheet Judi Jimenez BARTENDER Work Phone: [facility] Start: 01-21-2025 End: 01-22-2025 Refill Judi Tony BARTENDER Work Phone: [facility] Comment on above: 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 ([facility]/HCC) Start: 01-14-2025 End: 01-16-2025 Refill Judi Tony BARTENDER Work Phone: [facility] Comment on above: Mixed simple and muc opurulent chronic bronchitis ([facility]/HCC) Start: 01-09-2025 End: 01-09-2025 ambulatory Farzana Arreguin MD Facility:[facility] Start: 01-06-2025 End: 01-06-2025 Clinisync Result Encounter Judi Aichholz BARTENDER Work Phone: [facility] External Department Unsolicited Start: 01-06-2025 End: 01-06-2025 Clinisync Result Encounter Judi Aichholz BARTENDER Work Phone: [facility] External Department Unsolicited Start: 01-05-2025 End: 01-05-2025 Refill Judi Aichholz BARTENDER Work Phone: [facility] Comment on above: Type 2 diabetes nicanor itus with insulin therapy (CMS/HCC) (Primary Dx) Start: 01-03-2025 End: 01-03-2025 Refill Judi Aichholz BARTENDER Work Phone: [facility] Comment on above: 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) Start: 12-12-2024 End: 12-12-2024 Office outpatient visit 25 minutes Judi Aichholz BARTENDER Work Phone: [facility] Comment on above: Type 2 diabetes nicanor itus with insulin therapy (CMS/HCC) (Primary Dx); Type 2 diabetes mellitus with diabetic neuropathy, unspecified (CMS/HCC); Morbid (severe) obesity due to excess calories (CMS/HCC); Gastro-esophageal reflux disease without esophagitis; Body mass index (BMI) 35.0-35.9, adult; Primary hypertension (CMS/HCC); Vitamin D deficiency; Encounter for screening mammogram for malignant neoplasm of breast; Lung nodule seen on imaging study; Chronic bilateral low back pain without sciatica Start: 12-12-2024 End: 12-12-2024 ambulatory JUDI AICHHOLZ Not Available Start: 10-31-2024 End: 10-31-2024 Refill Judi Aichholz BARTENDER Work Phone: [facility] Comment on above: Type 2 diabetes nicanor itus with insulin therapy (CMS/HCC) (Primary Dx) Start: 10-17-2024 End: 10-17-2024 Refill Judi Aichholz BARTENDER Work Phone: [facility] Comment on above: 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 ([facility]) Start: 09-15-2024 End: 09-15-2024 Refill Judi Aichholz BARTENDER Work Phone: [facility] Comment on above: Type 2 diabetes nicanor itus with insulin therapy ([facility]) (Primary Dx) Chronic bilateral lo w back pain without sciatica; Type 2 diabetes mellitus with insulin therapy ([facility]/HCC) Start: 09-14-2024 End: 09-14-2024 Office outpatient visit 25 minutes Judi Jimenez BARTENDER Work Phone: [facility] Comment on above: Type 2 diabetes nicanor itus with insulin therapy ([facility]) (Primary Dx); Type 2 diabetes mellitus with diabetic neuropathy, unspecified whether exterminator insulin use ([facility]); Primary hypertension ([facility]); Gastroesophageal reflux disease without esophagitis; Obesity (BMI 30-39.9); Mixed hyperlipidemia ([facility]); Cerebrovascular accident (CVA), unspecified mechanism ([facility]); Type 2 diabetes mellitus treated without insulin ([facility]); Chronic bilateral low back pain without sciatica Start: 09-14-2024 End: 09-14-2024 ambulatory JUDI AICHHOLZ Not Available Start: 09-14-2024 End: 09-14-2024 Refill Judi Aichholz BARTENDER Work Phone: [facility] Comment on above: Type 2 diabetes nicanor itus with insulin therapy ([facility]) Start: 08-23-2024 End: 08-23-2024 Telephone encounter Judirico Jimenez BARTENDER Work Phone: [facility] Start: 08-22-2024 End: 08-24-2024 Telephone encounter Edda Kaur NP Work Phone: [facility] Comment on above: order clarification Start: 08-15-2024 End: 08-15-2024 Bamboo flowsheet Edda Kaur BARTENDER Work Phone: [facility] Start: 08-15-2024 End: 08-15-2024 Bamboo flowsheet Edda Kaur BARTENDER Work Phone: [facility] Start: 08-15-2024 End: 08-15-2024 Office outpatient new 30 minutes Edda Kaur BARTENDER Work Phone: [facility] Comment on above: Right knee pain, uns pecified chronicity (Primary Dx); Chronic pain of right knee; Status post right knee replacement Start: 08-15-2024 End: 08-15-2024 ambulatory EDDA KAUR Not Available Start: 08-08-2024 End: 08-08-2024 External Result Encounter Judi Jimenez BARTENDER Work Phone: [facility] External Department Unsolicited Start: 08-08-2024 End: 08-08-2024 External Result Encounter Judi Jimenez BARTENDER Work Phone: [facility] External Department Unsolicited Start: 08-08-2024 End: 08-08-2024 ambulatory Judi Jimenez Work Phone: [facility] Work Phone: Start: 08-08-2024 End: 08-08-2024 Patient encounter procedure Judi Jimenez Work Phone: [facility] Work Phone: Start: 08-04-2024 End: 08-04-2024 Clinisync Result Encounter Judi Jimenez BARTENDER Work Phone: [facility] External Department Unsolicited Start: 08-04-2024 End: 08-04-2024 Clinisync Result Encounter Judi Jimenez BARTENDER Work Phone: [facility] External Department Unsolicited Start: 08-04-2024 End: 08-04-2024 Refill Judi Jimenez BARTENDER Work Phone: [facility] Comment on above: UTI symptoms (Primar y Dx) Start: 08-02-2024 End: 08-02-2024 Orders Only Judi Jimenez BARTENDER Work Phone: [facility] Comment on above: Urinary frequency (P rimary Dx) Start: 07-25-2024 End: 07-25-2024 Orders Only Judi Jimenez BARTENDER Work Phone: [facility] Comment on above: Hemoptysis (Primary Dx); Lung nodule seen on imaging study Start: 07-20-2024 End: 07-20-2024 Refill Judi Jimenez BARTENDER Work Phone: [facility] Comment on above: 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) Start: 07-18-2024 End: 07-18-2024 Refill Judi Tony BARTENDER Work Phone: [facility] Comment on above: Chronic pain of righ t knee (Primary Dx); Leukocytosis, unspecified type Chronic pain of righ t knee (Primary Dx) Start: 07-13-2024 End: 07-13-2024 Office outpatient visit 25 minutes Judi Jimenez BARTENDER Work Phone: [facility] Comment on above: Type 2 diabetes nicanor itus with insulin therapy (CMS/HCC) (Primary Dx); Primary hypertension (CMS/HCC); Hemoptysis; Chronic pain of right knee; 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); Obesity (BMI 30-39.9) Start: 07-13-2024 End: 07-13-2024 ambulatory JUDI JIMENEZ Not Available Start: 07-13-2024 End: 07-13-2024 Bamboo flowsheet Judi Jimenez BARTENDER Work Phone: [facility] Start: 07-13-2024 End: 07-13-2024 Bamboo flowsheet Judi Jimenez BARTENDER Work Phone: [facility] Start: 06-29-2024 End: 06-29-2024 Refill Judirico Jimenez BARTENDER Work Phone: [facility] Comment on above: COVID (Primary Dx) Start: 06-20-2024 End: 06-20-2024 Refill Judi Aichholz BARTENDER Work Phone: [facility] Comment on above: Mixed hyperlipidemia (CMS/HCC) Start: 06-07-2024 End: 06-07-2024 Refill Judi Aichholz BARTENDER Work Phone: [facility] Comment on above: Type 2 diabetes nicanor itus with insulin therapy (CMS/[facility]) (Primary Dx) Start: 04-18-2024 End: 04-18-2024 ambulatory JUDI AICHHOLZ Not Available Start: 03-07-2024 End: 03-07-2024 ambulatory JUDI AICHHOLZ Not Available Start: 12-28-2023 Patient encounter procedure Judi Aichholz BARTENDER Work Phone: [facility] Start: 11-13-2023 Refill Judi Aichholz BARTENDER Work Phone: [facility] Comment on above: Gastroesophageal ref lux disease without esophagitis (Primary Dx) Start: 09-11-2023 End: 09-12-2023 ambulatory JUDI J AICHHOLZ [place] [place] Start: 09-11-2023 End: 09-11-2023 Patient encounter procedure JUDI J AICHHOLZ [facility] Start: 06-03-2023 End: 07-18-2023 Pre-admission assessment JUDI J AICHHOLZ [facility] Start: 01-17-2023 End: 01-18-2023 ambulatory [employer] JUDI AICHHOLZ Facility:[facility] Start: 12-27-2022 End: 12-28-2022 ambulatory [employer] JUDI AICHHOLZ Facility:[facility] Start: 05-27-2022 Encounter for genera l adult medical examination without abnormal findings DR CELIA CRUZ [facility] Start: 05-24-2022 End: 05-25-[address] CELIA CRUZ Facility:[facility] Start: 05-24-2022 End: 05-25-2022 Encounter for general adult medical examination without abnormal findings DR CELIA CRUZ Facility:[facility] Start: 04-20-[address] CELIA CRUZ Facili ty:[facility] Start: 12-18-2021 End: 12-18-2021 ambulatory Yash Jeffries Other [employer] Other Start: 12-18-2021 Postop follow up vis it related to original px Yash Jeffries [facility] [place] Start: 10-02-2021 End: 10-02-2021 ambulatory Yash Jeffries Other [employer] Other Start: 10-02-2021 Telephone encounter Yash Parker [facility] Neurosurgery Start: 09-23-2021 End: 09-23-2021 ambulatory Yash Jeffries Other [employer] Other Start: 09-23-2021 Telephone encounter Yash Casonkaroline Elena [facility] Neurosurgery Start: 08-12-2021 End: 08-12-2021 ambulatory Yash Jeffries Other [employer] Other Start: 08-12-2021 Office outpatient vi sit 25 minutes Yash Corneliaruth ann [facility] Neurosurgery Procedures Date Procedure Procedure Detail Performing Clinician Start: 02-10-2025 MR LUMBAR SPINE WO CON Generic External Data Provider Start: 01-06-2025 MM TOMOSYNTHESIS SCR EENING BI Judi Jimenez BARTENDER Work Phone: Start: 01-06-2025 CT CHEST W CONTRAST Lis a Tony BARTENDER Work Phone: Start: 01-06-2025 Mammography Judi beckett BARTENDER Work Phone: Start: 12-12-2024 Hemoglobin glycosylated a1c Judi Jimenez BARTENDER Work Phone: Start: 08-08-2024 GLUCOSE POCT GLUCOMETERS Judi Jimenez BARTENDER Work Phone: Start: 08-08-2024 Positron emission tomography with computed tomography Judi Dotsonkleberjose Work Phone: Start: 08-04-2024 TBH UA (CLEAN/CATCH) MICROSCOPIC IF INDICATE Judi Jimenez BARTENDER Work Phone: Start: 12-02-2023 Mammography Judi beckett BARTENDER Work Phone: Plan of Treatment Date Care Activity Detail Author Start: 03-23-2026 Screening for malign ant neoplasm of colon [facility] Start: 01-29-2026 End: 01-29-2026 Patient encounter procedure 01/29/2026 5:30 PM EDT Office Visit [facility] [address] [place] [phone] Judi Jimenez NP [address] [place] [phone] [facility] Start: 01-25-2026 Medicare Annual Wellness (AWV) Medicare Annual Wellness (AWV) [facility] Start: 01-06-2026 Screening for malign ant neoplasm of breast Mammogram [facility] Start: 04-26-2025 End: 04-26-2025 Patient encounter procedure 04/26/2025 5:30 PM EDT Office Visit [facility] [address] [place] [phone] Judi Jimenez NP [address] [place] [phone] [facility] Start: 04-16-2025 Glaucoma screening Diabetes: R etinopathy Screening [facility] Start: 03-14-2025 Hemoglobin A1c measurement Diabetes: Hemoglobin A1C [facility] Start: 01-25-2025 End: 01-25-2025 Patient encounter procedure [facility] Comment on above: Type 2 diabetes nicanor itus with diabetic neuropathy, unspecified whether exterminator insulin use (CMS/HCC) (Primary Dx); Primary hypertension (CMS/HCC); Gastro-esophageal reflux disease without esophagitis; Morbid (severe) obesity due to excess calories ([facility]); Type 2 diabetes mellitus with insulin therapy ([facility]); Encounter for subsequent annual wellness visit (AWV) in Medicare patient Start: 01-11-2025 End: 01-11-2025 Patient encounter procedure 01/11/2025 5:30 PM EDT Office Visit [facility] [address] [place] [address] Judi Jimenez NP [address] [place] [address] [facility] Start: 12-27-2024 Medicare Annual Wellness (AWV) Medicare Annual Wellness (AWV) [facility] Start: 12-12-2024 End: 12-12-2024 Patient encounter procedure 12/12/2024 5:30 PM EDT Office Visit [facility] [address] [place] [address] Judi Jimenez NP [address] [place] [address] [facility] Start: 12-12-2024 End: 12-12-2025 25-hydroxyvitamin D3 [Mass/volume] in Serum or Plasma Vitamin D 25 hydroxy Lab Routine Vitamin D deficiency Expected: 12/12/2024 (Approximate), Expires: 12/12/2025 [facility] Comment on above: Expected: 12/12/2024 (Approximate), Expires: 12/12/2025 Start: 12-12-2024 End: 12-12-2025 CBC W Auto Differential panel - Blood CBC and differential Lab Routine Gastro-esophageal reflux disease without esophagitis Expected: 12/12/2024 (Approximate), Expires: 12/12/2025 [facility] Work Phone: Comment on above: Expected: 12/12/2024 (Approximate), Expires: 12/12/2025 Start: 12-12-2024 End: 12-12-2025 Comprehensive metabolic 2000 panel - Serum or Plasma Comprehensive metabolic panel Lab Routine Type 2 diabetes mellitus with diabetic neuropathy, unspecified (CMS/HCC) Primary hypertension (CMS/HCC) Type 2 diabetes mellitus with insulin therapy (CMS/HCC) Vitamin D deficiency Expected: 12/12/2024 (Approximate), Expires: 12/12/2025 [facility] Comment on above: Expected: 12/12/2024 (Approximate), Expires: 12/12/2025 Start: 12-12-2024 End: 12-12-2025 CT Chest W contrast IV CT chest w IV contrast Imaging Routine Lung nodule seen on imaging study Expected: 12/12/2024 (Approximate), Expires: 12/12/2025 [facility] Comment on above: Expected: 12/12/2024 (Approximate), Expires: 12/12/2025 Start: 12-12-2024 End: 12-12-2025 Lipid 1996 panel - Serum or Plasma Lipid panel Lab Routine Type 2 diabetes mellitus with insulin therapy (CMS/HCC) Expected: 12/12/2024 (Approximate), Expires: 12/12/2025 [facility] Comment on above: Expected: 12/12/2024 (Approximate), Expires: 12/12/2025 Start: 12-12-2024 End: 02-11-2026 MG Breast - bilateral Screening Bilateral screening mammogram Imaging Routine Encounter for screening mammogram for malignant neoplasm of breast Expected: 12/12/2024 (Approximate), Expires: 02/11/2026 [facility] Comment on above: Expected: 12/12/2024 (Approximate), Expires: 02/11/2026 Start: 12-12-2024 End: 12-12-2025 Microalbumin/Creatinine panel in random Urine Microalbumin / creatinine, urine ratio Lab Routine Primary hypertension (CMS/HCC) Type 2 diabetes mellitus with insulin therapy (CMS/HCC) Expected: 12/12/2024 (Approximate), Expires: 12/12/2025 [facility] Comment on above: Expected: 12/12/2024 (Approximate), Expires: 12/12/2025 Start: 12-12-2024 End: 12-12-2025 Urinalysis complete panel - Urine Urinalysis with reflex microscopic (clean catch) Lab Routine Primary hypertension (CMS/HCC) Type 2 diabetes mellitus with insulin therapy (CMS/HCC) Expected: 12/12/2024 (Approximate), Expires: 12/12/2025 [facility] Comment on above: Expected: 12/12/2024 (Approximate), Expires: 12/12/2025 Start: 12-02-2024 Screening for malign ant neoplasm of breast Mammogram [facility] Start: 12-02-2024 Urine screening for protein Diabetes: Urine Protein Screening [facility] Start: 10-14-2024 Hemoglobin A1c measurement Diabetes: Hemoglobin A1C [facility] Start: 09-14-2024 End: 09-14-2024 Patient encounter procedure 09/14/2024 5:30 PM EST Office Visit [facility] [address] [place] [phone] Judi Jimenez NP [address] [place] [phone] [facility] Start: 08-15-2024 End: 08-15-2025 NM Bone Limited Views NM Bone 3PH SPECT Imaging Routine Status post right knee replacement Expected: 08/15/2024 (Approximate), Expires: 08/15/2025 [facility] Work Phone: Comment on above: Expected: 08/15/2024 (Approximate), Expires: 08/15/2025 Start: 08-15-2024 End: 08-15-2024 Patient encounter procedure 08/15/2024 1:45 PM EST Office Visit [facility] [address] [place] [phone] Edda Kaur NP [address] [place] [address] [facility] Start: 08-10-2024 End: 08-10-2024 Patient encounter procedure 08/10/2024 5:30 PM EST Office Visit [facility] [address] [place] [phone] Judi Jimenez NP [address] [place] [address] [facility] Start: 08-02-2024 End: 08-02-2025 Bacteria identified in Urine by Culture Urine culture (clean catch) Microbiology Routine Urinary frequency Expected: 08/02/2024 (Approximate), Expires: 08/02/2025 [facility] Comment on above: Expected: 08/02/2024 (Approximate), Expires: 08/02/2025 Start: 08-02-2024 End: 08-02-2025 Urinalysis complete panel - Urine Urinalysis with reflex microscopic (clean catch) Lab Routine Urinary frequency Expected: 08/02/2024 (Approximate), Expires: 08/02/2025 [facility] Work Phone: Comment on above: Expected: 08/02/2024 (Approximate), Expires: 08/02/2025 Start: 07-25-2024 End: 07-25-2025 PET+CT Bone from skull base to mid-thigh W [id number] IV PET/CT skull base to mid thigh Imaging Routine Hemoptysis Lung nodule seen on imaging study Expected: 07/25/2024 (Approximate), Expires: 07/25/2025 [facility] Work Phone: Comment on above: Expected: 07/25/2024 (Approximate), Expires: 07/25/2025 Start: 07-13-2024 End: 07-13-2024 Patient encounter procedure [facility] Comment on above: Type 2 diabetes nicanor itus with insulin therapy ([facility]/HCC) (Primary Dx); Primary hypertension (CMS/HCC) Start: 07-13-2024 End: 07-13-2025 Basic metabolic 1998 panel - Serum or Plasma Basic metabolic panel Lab Routine Type 2 diabetes mellitus with insulin therapy (CMS/HCC) Expected: 07/13/2024 (Approximate), Expires: 07/13/2025 [facility] Comment on above: Expected: 07/13/2024 (Approximate), Expires: 07/13/2025 Start: 07-13-2024 End: 07-13-2025 C reactive protein [Mass/volume] in Serum or Plasma C-reactive protein Lab Routine Chronic pain of right knee Expected: 07/13/2024 (Approximate), Expires: 07/13/2025 [facility] Comment on above: Expected: 07/13/2024 (Approximate), Expires: 07/13/2025 Start: 07-13-2024 End: 07-13-2025 CBC W Auto Differential panel - Blood CBC and differential Lab Routine Chronic pain of right knee Expected: 07/13/2024 (Approximate), Expires: 07/13/2025 [facility] Comment on above: Expected: 07/13/2024 (Approximate), Expires: 07/13/2025 Start: 07-13-2024 End: 07-13-2025 CT Chest W contrast IV CT chest w IV contrast Imaging Routine Hemoptysis Expected: 07/13/2024 (Approximate), Expires: 07/13/2025 [facility] Comment on above: Expected: 07/13/2024 (Approximate), Expires: 07/13/2025 Start: 07-13-2024 End: 07-13-2025 Erythrocyte sedimentation rate Sedimentation rate, automated Lab Routine Chronic pain of right knee Expected: 07/13/2024 (Approximate), Expires: 07/13/2025 [facility] Comment on above: Expected: 07/13/2024 (Approximate), Expires: 07/13/2025 Start: 07-13-2024 End: 07-13-2025 Hemoglobin A1c/Hemoglobin.total in Blood Hemoglobin A1c Lab Routine Type 2 diabetes mellitus with insulin therapy ([facility]) Expected: 07/13/2024 (Approximate), Expires: 07/13/2025 [facility] Work Phone: Comment on above: Expected: 07/13/2024 (Approximate), Expires: 07/13/2025 Start: 07-13-2024 End: 07-13-2025 XR Knee - right 3 Views XR knee 3 views right Imaging Routine Chronic pain of right knee Expected: 07/13/2024, Expires: 07/13/2025 [facility] Comment on above: Expected: 07/13/2024 , Expires: 07/13/2025 Start: 06-10-2024 Hemoglobin A1c measurement Diabetes: Hemoglobin A1C [facility] Start: 11-23-2023 End: 11-23-2023 Patient encounter procedure 11/23/2023 6:00 PM EST Office Visit [facility] [address] [place] [phone] Judi Jimenez, BARTENDER [address] [place] [phone] [facility] Start: 06-05-2023 Influenza vaccination Influenza Vacc ine (#1) [facility] Start: 1996 Screening for malign ant neoplasm of breast Mammogram [facility] Start: 12-27-1975 Urine screening for protein Diabetes: Urine Protein Screening [facility] Start: 1966 Glaucoma screening Diabetes: R etinopathy Screening [facility] Start: 1962 Pneumococcal Vaccine : 65+ Years (1 - PCV) Pneumococcal Vaccine: 65+ Years (1 - PCV) [facility] Start: 1956 Hemoglobin A1c measurement Diabetes: Hemoglobin A1C [facility] Start: 1956 Medicare Annual Wellness (AWV) Medicare Annual Wellness (AWV) [facility] Start: 1956 Screening for malign ant neoplasm of colon [facility] Immunizations Immunization Date Immunization Notes Care Provider Fa cility 12-11-2024 ABRYSVO - Respirator y syncytial virus (RSV), vaccine, bivalent, protein subunit RSV prefusion F, diluent reconstituted, 0.5 mL, PF Judi Jimenez BARTENDER Work Phone: [facility] 08-08-2024 Influenza, injectable, Madin Jeane Canine Kidney, preservative free, quadrivalent Edda Kaur BARTENDER Work Phone: [facility] 06-28-2021 Pfizer Purple Cap SARS-CoV-2 Vaccination Judi Tony BARTENDER Work Phone: [facility] 01-13-2021 Pfizer Purple Cap SARS-CoV-2 Vaccination Judi Tony BARTENDER Work Phone: [facility] 01-03-2021 Pfizer Purple Cap SARS-CoV-2 Vaccination Judi Tony BARTENDER Work Phone: [facility] 12-13-2020 Pfizer Purple Cap SARS-CoV-2 Vaccination Judi Aichholz BARTENDER Work Phone: [facility] 07-09-2020 influenza, high dose seasonal, preservative-free Judi Aichholz BARTENDER Work Phone: [facility] 07-09-2020 influenza virus vaccine, unspecified formulation Judi Aichholz BARTENDER Work Phone: [facility] 07-08-2020 influenza, injectable, quadrivalent, preservative free Judi Aichholz BARTENDER Work Phone: [facility] NEGATED: Highlighted row has not occurred!09-20-2021 influenza, injectable, quadrivalent, preservative free Judi Aichholz Work Phone: [facility] Payers Date Payer Category Payer Self-pay [id number] 2024 Medicare [id number] 2024 Medicare (Managed Care) M-Factor [id number] 2024 Unknown M-Factor D Tiinkk [id number] 2024-Present [address] [place] [id number]. [id number] 2024 Unknown [id number] 2017 Medicare [id number]. [id number] 1959 Medicare [id number] 1959 Self-pay [id number] 1956 Unknown [id number] 2.16.840.1.509896.3.579.2. 593 1956 Unknown [id number] 2.16.840.1.949789.3.579.2. 593 1956 Unknown [id number] 2.16.840.1.136793.3.579.2. 593 1956 Unknown [id number] 2.16.840.1.920191.3.579.2. 593 1956 Unknown [id number] 2.16.840.1.074777.3.579.2. 727 1956 Unknown [id number] 2.16.840.1.086025.3.579.2. 196 1956 Unknown [id number] 2.16.840.1.675561.3.579.2. 1259 1956 Unknown [id number] 2.16.840.1.969344.3.579.2. 1259 1956 Unknown [id number] 2.16.840.1.814333.3.579.2. 1259 1956 Unknown [id number] 2.16.840.1.120281.3.579.2. 1259 1956 Unknown [id number] 2.16.840.1.920646.3.579.2. 1259 1956 Unknown [id number] 2.16.840.1.406503.3.579.2. 1259 1956 Unknown [id number] 2.16.840.1.621832.3.579.2. 1259 Medicaid Medicaid [id number] Medicare Medicare [id number] Unknown [id number] 2.16.840.1.663050.3.579.2. 531 Social History Date Type Detail Facility Unknown if ever smoked [facility] Other Start: 10-30-2023 End: 12-28-2023 Sex Assigned At [facility] Tobacco smoking status No Smokin g Status Entered [facility] Start: 10-05-1990 End: 01-12-2025 Tobacco smoking status GAIS Smokes tobacco daily [facility] Start: 10-05-1990 History of tobacco use Cigarette Smoker [facility] Start: 10-30-2023 End: 12-28-2023 Cigarettes smoked current (pack per day) - Reported 0.5 [facility] Start: 1955 Sex Assigned At Not on file [facility] Start: 07-13-2024 End: 01-25-2025 Alcoholic beverage intake Ex-drinker (finding) [facility] Within the last year , have you been afraid of your partner or ex-partner? No [facility] Do you belong to any clubs or organizations such as amish groups, unions, fraternal or athletic groups, or [...] [facility] Start: 07-27-2024 Tobacco smoking status GAIS Never smoked tobacco (finding) [facility] Start: 1955 Sex Assigned At Female [facility] Medical Equipment Procedure Code Equipment Code Equipment Origin al Text Equipment Identifier Dates 1 each by Other route Daily Start: 12-02-2023 Spinal fixation plate, non-bioabsorbable ()[id number] FDA Start: 09-19-2021 Bone-screw inter nal spinal fixation system, non-sterile ()[id number] FDA Start: 09-19-2021 Bone-screw inter nal spinal fixation system, non-sterile ()[id number] FDA Start: 09-19-2021 Bone-screw inter nal spinal fixation system, non-sterile ()[id number] FDA Start: 09-19-2021 Intervertebral-b ashely internal spinal fixation system ()[id number] FDA Start: 09-19-2021 Functional Status Date Assessment Result Facility 01-25-2025 Patient [facility] ionnaire 2 item (PHQ-2) [Reported] [facility] Clinical Notes 08-12-2021 to 01-25-2025 Judi Jimenez NP - 01/25/2025 5:30 PM Areli Jimenez NP - 01/25/2025 7:44 AM Areli Jimenez NP - 01/25/2025 7:44 AM Areli Jimenez NP - 01/25/2025 7:43 AM EDTPatient Instructions Note Date & Type Note Facility 01-25-2025 History of Presen t illness Narrative Images from the original note were not included. Vani Kauffman is a 69 y.o. female presents with chief complaint of Medicare Annual Wellness Visit Initial HPI: Diet: yes Activity:no Mental Health Concerns:none Falls in the last year: no Still driving:yes Do you pay your bills:yes Any hearing problems:no Any Vision problems: no, last eye exam 2 months ago Any Hospitalizations in the last year:no Specialist: ortho, HCPOA/Living Will: no Concerns: CGM: 7 day 128, 14 day 134, 30 day 133, 90 day 134 avg Time in range: 7: 89%, 14 day 90%, 30 day 90%, 90 day 87% GMI 7 day 6.4%, 14 d 6.5%, 30 d 6.5%, 90 d 6.5% Diabetes She presents for her follow-up diabetic visit. She has type 2 diabetes mellitus. Her disease course has been stable. There are no hypoglycemic associated symptoms. Pertinent negatives for hypoglycemia include no dizziness, headaches, nervousness/anxiousness, seizures or tremors. Associated symptoms include foot paresthesias, polydipsia and polyuria. Pertinent negatives for diabetes include no chest pain and no polyphagia. There are no hypoglycemic complications. Symptoms are stable. Diabetic complications include peripheral neuropathy. Pertinent negatives for diabetic complications include no PVD. Risk factors for coronary artery disease include diabetes mellitus, dyslipidemia, hypertension, obesity, sedentary lifestyle and post-menopausal. Current diabetic treatment includes insulin injections. She is compliant with treatment all of the time. An JOSE ROBERTO inhibitor/angiotensin II receptor winsome is being taken. She does not see a recruiting manager.Eye exam is current. Hypertension This is a chronic problem. The problem is unchanged. The problem is controlled. Pertinent negatives include no chest pain, headaches, palpitations, peripheral edema or shortness of breath. There are no associated agents to hypertension. Risk factors for coronary artery disease include diabetes mellitus, dyslipidemia, obesity and sedentary lifestyle. Past treatments include angiotensin blockers. The current treatment provides significant improvement. There are no compliance problems. There is no history of CAD/MO, heart failure or PVD. SUBJECTIVE: MEDICATIONS: Current Outpatient Medications Medication Instructions amLODIPine (NORVASC) 10 mg, Oral, Daily atorvastatin (LIPITOR) 80 mg, Oral, Nightly Zuqxwlq-Tykuqzzcvch-Guwzsjbrvn (Breztri Aerosphere) 160-9-4.8 MCG/ACT aerosol 2 puffs, Inhalation, 2 times daily Continuous Glucose Plaque Maker (FreeStyle Laure 3 [place]) device 1 each, Does not apply, Daily Continuous Glucose Sensor (FreeStyle Laure 3 Sensor) [facility] [place]ED to test BLOOD SUGAR DAILY; change EVERY 14 days empagliflozin (JARDIANCE) 25 mg, Oral, Every morning ergocalciferol (VITAMIN D2) 1.25 mg, Oral, Weekly famotidine (PEPCID) 20 mg, Oral, Nightly insulin glargine (Basaglar KwikPen) 100 UNIT/ML pen 55 units daily losartan (COZAAR) 100 mg, Oral, Daily, Take 100 mg by mouth Daily metFORMIN (GLUCOPHAGE) 1,000 mg, Oral, 2 times daily with meals pantoprazole (PROTONIX) 40 mg, Oral, Daily tiZANidine (ZANAFLEX) 4 mg, Oral, Nightly PRN True Metrix Blood Glucose Test test strip 1 each, Daily Ventolin HFA 108 (90 Base) MCG/ACT inhaler 2 puffs, Inhalation, Every 6 hours PRN ALLERGIES: Allergies Allergen Reactions Cephalexin Unknown Penicillins Sulfa Antibiotics REVIEW OF SYMPTOMS: Review of Systems Constitutional: Negative for appetite change, chills and fever. HENT: Negative for congestion, ear pain and sore throat. Eyes: Negative for pain, discharge, redness and visual disturbance. Respiratory: Negative for cough, shortness of breath and wheezing. Cardiovascular: Negative for chest pain, palpitations and leg swelling. Gastrointestinal: Negative for abdominal pain, blood in stool, constipation, diarrhea, nausea and vomiting. Genitourinary: Negative for difficulty urinating, dysuria and frequency. Musculoskeletal: Positive for arthralgias and back pain. Negative for joint swelling and myalgias. Skin: Negative for rash and wound. Neurological: Negative for dizziness, tremors, seizures, syncope and headaches. Psychiatric/Behavioral: Negative for behavioral problems, self-injury and suicidal ideas. The patient is not nervous/anxious. Hematological: Does not bruise/bleed easily. Endocrine: Positive for polydipsia and polyuria. Negative for polyphagia. Allergic/Immunologic: Negative for environmental allergies and food allergies. PAST MEDICAL HISTORY Past Medical History: Diagnosis Date Arthritis DDD (degenerative disc disease), cervical 11/23/2023 Diabetic neuropathy, type II diabetes mellitus ([facility]) 11/23/2023 Elevated alkaline phosphatase level 11/23/2023 Gastroesophageal reflux disease without esophagitis 10/06/2023 shelter (current) use of insulin ([facility]) Menopause 11/23/2023 Mixed hyperlipidemia ([facility]) 09/17/2023 Neoplasm of uncertain behavior 11/23/2023 Nontoxic goiter ([facility]) Osteoarthritis of right knee 11/23/2023 Primary hypertension ([facility]) 10/01/2023 Right upper extremity numbness Stroke ([facility]) 11/23/2023 Type 2 diabetes mellitus with insulin therapy ([facility]) 11/23/2023 Visual impairment 11/23/2023 Vitamin D deficiency Past Surgical History: Procedure Laterality Date CERVICAL FUSION 1999 HYSTERECTOMY KNEE ARTHROPLASTY Right 2017 [place] KNEE SURGERY Right 2019 knee Infection in operative knee, treated at [facility] family history includes Breast cancer in her mother; Cancer in her mother; Diabetes in her sister; Multiple sclerosis in her sister; No Known Problems in her son; Thyroid disease in her sister. OBJECTIVE: Visit Vitals BP 132/82 (BP Location: Left arm, Patient Position: Sitting, BP Cuff Size: Adult long) Pulse 98 Temp 98.7 F (Temporal) Resp 19 Wt 204 lb 12.8 oz SpO2 98% BMI 36.28 kg/m Smoking Status Every Day BSA 2.03 m Physical Exam Vitals and nursing note reviewed. Constitutional: General: She is not in acute distress. Appearance: Normal appearance. HENT: Head: Normocephalic and atraumatic. Right Ear: External ear normal. Left Ear: External ear normal. Nose: Nose normal. Mouth/Throat: Mouth: Mucous membranes are moist. Eyes: Extraocular Movements: Extraocular movements intact. Conjunctiva/sclera: Conjunctivae normal. Neck: Vascular: No carotid bruit. Cardiovascular: Rate and Rhythm: Normal rate and regular rhythm. Pulses: Normal pulses. Heart sounds: Normal heart sounds. Pulmonary: Effort: Pulmonary effort is normal. Breath sounds: Normal breath sounds. No wheezing or rhonchi. Abdominal: General: Bowel sounds are normal. There is no distension. Palpations: Abdomen is soft. There is no mass. Tenderness: There is no abdominal tenderness. Musculoskeletal: General: Normal range of motion. Cervical back: Normal range of motion and neck supple. Right lower leg: No edema. Left lower leg: No edema. Skin: General: Skin is warm and dry. [...] file. Problem List Items Addressed This Visit Mixed hyperlipidemia (CMS/HCC) Relevant Medications atorvastatin (Lipitor) 80 MG tablet Primary hypertension (CMS/HCC) Please check blood pressure daily and record DASH diet Limit caffeine Take medication as directed Contact office if chest pain, pressure, dizziness, shortness of breath, swelling legs Recommend slow position changes Current meds: amlodipine and losartan Relevant Medications amLODIPine (Norvasc) 10 MG tablet losartan (Cozaar) 100 MG tablet Gastro-esophageal reflux disease without esophagitis Recommendations: freq small meals, nothing to eat or drink at least 2 hours prior to bed, limit caffeine, alcohol, as well as spicy foods Meds to limit or avoid if possible: NSAIDS Elevate HOB if possible Current med: pantoprazole Relevant Medications famotidine (Pepcid) 20 MG tablet pantoprazole (ProtoNix) 40 MG EC tablet Type 2 diabetes mellitus with diabetic neuropathy, unspecified ([facility]) - Primary No current meds for this Gabapentin gave bad nightmares Does not want to trial lyrica Type 2 diabetes mellitus with insulin therapy ([facility]) Check blood sugars daily, notify if <70 [...] weeks Increase protein snacks Asked about extra laure sensor, and #2 samples given : lot [id number] exp 02/01/25 Relevant Medications empagliflozin (Jardiance) 25 MG Tirzepatide (Mounjaro) 10 MG/0.5ML solution auto-injector metFORMIN (Glucophage) 1000 MG tablet insulin glargine (Basaglar KwikPen) 100 UNIT/ML pen Vitamin D deficiency Relevant Medications ergocalciferol (Vitamin D2) 1.25 MG (70414 UT) capsule Encounter for subsequent annual wellness visit (AWV) in Medicare patient Reviewed Ht/Wt/BMI Recommend eye exam yearly Recommend dental exams twice a year Exercises is recommended most days of the week (appropriate as chronic conditions allow) Follow up yearly and prn Mixed simple and mucopurulent chronic bronchitis ([facility]) Relevant Medications Yzqvimt-Ouihchybnwm-Goeopxdiea (Breztri Aerosphere) 160-9-4.8 MCG/ACT aerosol Morbid (severe) obesity due to excess calories ([facility]) Discussed with patient their BMI (actual, verses recommended). We have also discussed lifestyle modifications: attempts to perform physical activity as chronic conditions allow, also to monitor dietary intake: increasing protein/fruits/veggies and lowering carb intake (unless contraindicated). Limit sodas, juices, and sugary drinks. Does take mounjaro for tx of her DM Other Visit Diagnoses Gastroesophageal reflux disease without esophagitis Relevant Medications famotidine (Pepcid) 20 MG tablet pantoprazole (ProtoNix) 40 MG EC tablet Associated Problem(s): Encounter for subsequent annual wellness visit (AWV) in Medicare patient Reviewed Ht/Wt/BMI Recommend eye exam yearly Recommend dental exams twice a year Exercises is recommended most days of the week (appropriate as chronic conditions allow) Follow up yearly and prn Associated Problem(s): Type 2 diabetes mellitus with insulin therapy ([facility]) Check blood sugars daily, notify if <70 [...] weeks Increase protein snacks Asked about extra laure sensor, and #2 samples given : lot [id number] exp 02/01/25 Associated Problem(s): Morbid (severe) obesity due to excess calories (CMS/HCC) Discussed with patient their BMI (actual, verses recommended). We have also discussed lifestyle modifications: attempts to perform physical activity as chronic conditions allow, also to monitor dietary intake: increasing protein/fruits/veggies and lowering carb intake (unless contraindicated). Limit sodas, juices, and sugary drinks. Does take mounjaro for tx of her DM Associated Problem(s): Gastro-esophageal reflux disease without esophagitis Recommendations: freq small meals, nothing to eat or drink at least 2 hours prior to bed, limit caffeine, alcohol, as well as spicy foods Meds to limit or avoid if possible: NSAIDS Elevate HOB if possible Current med: pantoprazole Associated Problem(s): Primary hypertension (CMS/HCC) Please check blood pressure daily and record DASH diet Limit caffeine Take medication as directed Contact office if chest pain, pressure, dizziness, shortness of breath, swelling legs Recommend slow position changes Current meds: amlodipine and losartan Associated Problem(s): Type 2 diabetes mellitus with diabetic neuropathy, unspecified (CMS/HCC) No current meds for this Gabapentin gave bad nightmares Does not want to trial lyrica documented in this encounter [facility] 01-25-2025 Instructions Judi Jimenez NP - 01/25/2025 5:30 PM EDT No med changes documented in this encounter [facility] 12-12-2024 History of Presen t illness Narrative Associated Problem(s): Chronic bilateral low back pain without sciatica Clinically is not better despite muscle relaxers and is willing to see Pain Mgmt I will also give a short supply of [place], last given in 09/27 O[facility]RS reviewed Images from the original note were not included. Vani Kauffman is a 68 y.o. female presents with chief complaint of Diabetes HPI: Fu Diabetes: Type 2, current meds: mounjaro, lantus, metformin (stopped taking d/t low sugars), and SGLT 2 med She was getting lower reads during the night 50's Takes everything in the morning as a dose including insulin Readings Free Style Laure 3: got a new phone on 12/06/24, all old info is gone Current reads: >250 4%, 181-250 23%, 70-180 73%, less than 70 0% Lunch is big meal of the day Back Pain This is a chronic problem. The current episode started more than 1 year ago. The problem occurs daily. The problem has been gradually worsening since onset. The pain is present in the lumbar spine. The quality of the pain is described as aching. The pain does not radiate. The pain is moderate. The pain is The same all the time. The symptoms are aggravated by twisting, standing and bending. Pertinent negatives include no abdominal pain, chest pain, dysuria, fever, headaches, numbness, paresthesias, perianal numbness or tingling. She has tried NSAIDs, muscle relaxant and home exercises for the symptoms. The treatment provided mild relief. SUBJECTIVE: MEDICATIONS: Current Outpatient Medications Medication Instructions albuterol HFA (Ventolin HFA) 90 mcg/act inhaler 2 puffs, Inhalation, Every 6 hours PRN amLODIPine (NORVASC) 10 mg, Oral, Daily atorvastatin (LIPITOR) 80 mg, Oral, Nightly Breztri Aerosphere 160-9-4.8 MCG/ACT aerosol INHALE 2 PUFFS BY MOUTH TWICE DAILY (IN THE MORNING and BEFORE bedtime) rinse after use clopidogrel (PLAVIX) 75 mg, Oral, Daily Continuous Glucose Plaque Maker (FreeStyle Laure 3 [place]) device 1 each, Does not apply, Daily Continuous Glucose Sensor (FreeStyle Laure 3 Sensor) [facility] [place] DIRECTED to test BLOOD SUGAR DAILY; change EVERY 14 days empagliflozin (JARDIANCE) 25 mg, Oral, Every morning ergocalciferol (VITAMIN D2) 1.25 mg, Oral, Weekly famotidine (PEPCID) 20 mg, Oral, Nightly HYDROcodone-acetaminophen ([place]) 5-325 MG tablet 1 tablet, Oral, Every 12 hours PRN Lantus SoloStar 55 Units, Subcutaneous, Nightly losartan (COZAAR) 100 mg, Oral, Daily, Take 100 mg by mouth Daily metFORMIN (GLUCOPHAGE) 1,000 mg, Oral, 2 times daily with meals Mounjaro 10 mg, Injection, Every 7 days pantoprazole (PROTONIX) 40 mg, Oral, Daily tiZANidine (ZANAFLEX) 4 mg, Oral, Nightly PRN True Metrix Blood Glucose Test test strip 1 each, Daily ALLERGIES: Allergies Allergen Reactions Cephalexin Unknown Penicillins Sulfa Antibiotics REVIEW OF SYMPTOMS: Review of Systems Constitutional: Negative for appetite change, chills and fever. HENT: Negative for congestion, ear pain and sore throat. Eyes: Negative for pain, discharge, redness and visual disturbance. Respiratory: Positive for cough. Negative for shortness of breath and wheezing. Cardiovascular: Negative for chest pain, palpitations and leg swelling. Gastrointestinal: Negative for abdominal pain, blood in stool, constipation, diarrhea, nausea and vomiting. Genitourinary: Negative for difficulty urinating, dysuria and frequency. Musculoskeletal: Positive for back pain. Negative for arthralgias, joint swelling and myalgias. Skin: Negative for rash and wound. Neurological: Negative for dizziness, tingling, tremors, seizures, syncope, numbness, headaches and paresthesias. Psychiatric/Behavioral: Negative for behavioral problems, self-injury and suicidal ideas. The patient is not nervous/anxious. Hematological: Does not bruise/bleed easily. Endocrine: Positive for polyuria. Negative for polydipsia and polyphagia. Allergic/Immunologic: Negative for environmental allergies and food allergies. PAST MEDICAL HISTORY Past Medical History: Diagnosis Date Arthritis DDD (degenerative disc disease), cervical 11/23/2023 Diabetic neuropathy, type II diabetes mellitus ([facility]) 11/23/2023 Elevated alkaline phosphatase level 11/23/2023 Gastroesophageal reflux disease without esophagitis 10/06/2023 Menopause 11/23/2023 Mixed hyperlipidemia ([facility]) 09/17/2023 Neoplasm of uncertain behavior 11/23/2023 Osteoarthritis of right knee 11/23/2023 Primary hypertension (CMS/HCC) 10/01/2023 Right upper extremity numbness Stroke ([facility]) 11/23/2023 Type 2 diabetes mellitus with insulin therapy ([facility]) 11/23/2023 Visual impairment 11/23/2023 Past Surgical History: Procedure Laterality Date CERVICAL FUSION 2000 KNEE ARTHROPLASTY Right 2017 [place] KNEE SURGERY Right 2019 knee Infection in operative knee, treated at [facility] family history is not on file. OBJECTIVE: Visit Vitals BP 142/88 (BP Location: Left arm, Patient Position: Sitting, BP Cuff Size: Adult long) Pulse 108 Temp 97.8 F (Temporal) Resp 19 Ht 5' 3 Wt 208 lb 12.8 oz SpO2 92% BMI 36.99 kg/m Smoking Status Every Day BSA 2.05 m Physical Exam Vitals and nursing note reviewed. Constitutional: General: She is not in acute distress. Appearance: Normal appearance. HENT: Head: Normocephalic and atraumatic. Right Ear: External ear normal. Left Ear: External ear normal. Nose: Nose normal. Mouth/Throat: Mouth: Mucous membranes are moist. Eyes: Extraocular Movements: Extraocular movements intact. Conjunctiva/sclera: Conjunctivae normal. Neck: Vascular: No carotid bruit. Cardiovascular: Rate and Rhythm: Normal rate and regular rhythm. Pulses: Normal pulses. Heart sounds: Normal heart sounds. Pulmonary: Effort: Pulmonary effort is normal. Breath sounds: Normal breath sounds. No wheezing or rales. Comments: Moist cough Abdominal: General: Bowel sounds are normal. There is no distension. Palpations: Abdomen is soft. There is no mass. Tenderness: There is no abdominal tenderness. Musculoskeletal: Cervical back: Normal range of motion and neck supple. Right lower leg: No edema. Left lower leg: No edema. Comments: Decreased ROM, and painful ROM Skin: General: Skin is warm and dry. Capillary Refill: Capillary refill takes 2 to 3 seconds. Findings: No rash. Neurological: General: No focal deficit present. Mental Status: She is alert and oriented to person, place, and time. Psychiatric: Mood and Affect: Mood normal. Behavior: Behavior normal. Thought Content: Thought content normal. Judgment: Judgment normal. ASSESSMENT AND PLAN: Follow up in about 4 weeks (around 01/09/2025) for Recheck. Problem List Items Addressed This Visit Primary hypertension ([facility]) Please check blood pressure daily and record DASH diet Limit caffeine Take medication as directed Contact office if chest pain, pressure, dizziness, shortness of breath, swelling legs Recommend slow position changes Current meds: amlodipine and losartan Relevant Orders Comprehensive metabolic panel Urinalysis with reflex microscopic (clean catch) Microalbumin / creatinine, urine ratio Gastro-esophageal reflux disease without esophagitis Recommendations: freq small meals, nothing to eat or drink at least 2 hours prior to bed, limit caffeine, alcohol, as well as spicy foods Meds to limit or avoid if possible: NSAIDS Elevate HOB if possible Current med: pantoprazole Relevant Orders CBC and differential Type 2 diabetes mellitus with diabetic neuropathy, unspecified ([facility]) No current meds for this Gabapentin gave bad nightmares Does not want to trial lyrica Relevant Orders Comprehensive metabolic panel Type 2 diabetes mellitus with insulin therapy ([facility]) - Primary Check blood sugars daily, notify if <70 [...] weeks Increase protein snacks Asked about extra laure sensor, and #2 samples given : lot [id number] exp 02/01/25 Relevant Orders POCT glycosylated hemoglobin (Hb A1C) docked device (Completed) Comprehensive metabolic panel Lipid panel Urinalysis with reflex microscopic (clean catch) Microalbumin / creatinine, urine ratio Vitamin D deficiency On supplement Check labs yearly and prn changes in sxs or dosage Relevant Orders Comprehensive metabolic panel Vitamin D 25 hydroxy Body mass index (BMI) 35.0-35.9, adult Lung nodule seen on imaging study Relevant Orders CT chest w IV contrast Chronic bilateral low back pain without sciatica Clinically is not better despite muscle relaxers and is willing to see Pain Mgmt I will also give a short supply of [place], last given in 09/27 OARRS reviewed Relevant Medications HYDROcodone-acetaminophen ([place]) 5-325 MG tablet Other Relevant Orders Ambulatory referral to Pain Medicine Morbid (severe) obesity due to excess calories ([facility]) Discussed with patient their BMI (actual, verses recommended). We have also discussed lifestyle modifications: attempts to perform physical activity as chronic conditions allow, also to monitor dietary intake: increasing protein/fruits/veggies and lowering carb intake (unless contraindicated). Limit sodas, juices, and sugary drinks. Does take mounjaro for tx of her DM Encounter for screening mammogram for malignant neoplasm of breast Relevant Orders Bilateral screening mammogram Associated Problem(s): Vitamin D deficiency On supplement Check labs yearly and prn changes in sxs or dosage Associated Problem(s): Type 2 diabetes mellitus with insulin therapy ([facility]) Check blood sugars daily, notify if <70 [...] weeks Increase protein snacks Asked about extra laure sensor, and #2 samples given : lot [id number] exp 02/01/25 Associated Problem(s): Morbid (severe) obesity due to excess calories (CMS/HCC) Discussed with patient their BMI (actual, verses recommended). We have also discussed lifestyle modifications: attempts to perform physical activity as chronic conditions allow, also to monitor dietary intake: increasing protein/fruits/veggies and lowering carb intake (unless contraindicated). Limit sodas, juices, and sugary drinks. Does take mounjaro for tx of her DM Associated Problem(s): Gastro-esophageal reflux disease without esophagitis Recommendations: freq small meals, nothing to eat or drink at least 2 hours prior to bed, limit caffeine, alcohol, as well as spicy foods Meds to limit or avoid if possible: NSAIDS Elevate HOB if possible Current med: pantoprazole Associated Problem(s): Primary hypertension (CMS/HCC) Please check blood pressure daily and record DASH diet Limit caffeine Take medication as directed Contact office if chest pain, pressure, dizziness, shortness of breath, swelling legs Recommend slow position changes Current meds: amlodipine and losartan Associated Problem(s): Type 2 diabetes mellitus with diabetic neuropathy, unspecified (CMS/HCC) No current meds for this Gabapentin gave bad nightmares Does not want to trial lyrica documented in this encounter [facility] 12-12-2024 Instructions Judi Jimenez NP - 12/12/2024 5:30 PM EDT Lower dose on insulin to 55 units daily, add back metformin Fu in 4 weeks, bring reader with you Increase your protein snacks: cheese, yogurt, chicken, turkey, peanut butter, eggs Will send order for fu CT chest and mammogram to [facility]: they should call, if you do not hear from them in 2 weeks call [phone], ext [phone] Will refer to Pain Management at [facility] documented in this encounter [facility] 09-14-2024 History of Presen t illness Narrative Associated Problem(s): Chronic bilateral low back pain without sciatica Is asking about opioid pain meds, as [...] her gait is thrown off OARRS reviewed Images from the original note were not included. Vani Kauffman is a 68 y.o. female presents with chief complaint of Diabetes HPI: Diabetes She presents for her follow-up diabetic visit. She has type 2 diabetes mellitus. Her disease course has been stable. There are no hypoglycemic associated symptoms. Pertinent negatives for hypoglycemia include no dizziness, headaches, nervousness/anxiousness, seizures or tremors. Pertinent negatives for diabetes include no blurred vision, no chest pain, no foot paresthesias, no polydipsia, no polyphagia, no polyuria and no weakness. There are no hypoglycemic complications. Symptoms are stable. Diabetic complications include a CVA and peripheral neuropathy. Risk factors for coronary artery disease include diabetes mellitus, dyslipidemia, hypertension, obesity and sedentary lifestyle. Current diabetic treatment includes oral agent (triple therapy) and insulin injections. Her overall blood glucose range is 90-110 mg/dl. An JOSE ROBERTO inhibitor/angiotensin II receptor winsome is being taken. She does not see a recruiting manager.Eye exam is current. Hypertension This is a chronic problem. The current episode started more than 1 year ago. The problem is unchanged. The problem is controlled. Pertinent negatives include no blurred vision, chest pain, headaches, neck pain, orthopnea, palpitations, peripheral edema or shortness of breath. There are no associated agents to hypertension. Risk factors for coronary artery disease include diabetes mellitus, dyslipidemia, obesity and sedentary lifestyle. Hypertensive end-organ damage includes CVA. There is no history of kidney disease or CAD/MO. Back Pain This is a chronic problem. The current episode started more than 1 year ago. The problem occurs daily. The problem has been waxing and waning since onset. The pain is present in the lumbar spine. The quality of the pain is described as aching. The pain does not radiate. The pain is moderate. The symptoms are aggravated by bending, standing and twisting. Stiffness is present All day. Pertinent negatives include no abdominal pain, chest pain, dysuria, fever, headaches, perianal numbness or weakness. Risk factors include obesity, menopause and sedentary lifestyle. She has tried NSAIDs for the symptoms. The treatment provided mild relief. SUBJECTIVE: MEDICATIONS: Current Outpatient Medications Medication Instructions amLODIPine (NORVASC) 10 mg, Oral, Daily atorvastatin (LIPITOR) 80 mg, Oral, Nightly clopidogrel (PLAVIX) 75 mg, Oral, Daily empagliflozin (JARDIANCE) 25 mg, Oral, Every morning ergocalciferol (VITAMIN D-2) 1.25 mg, Weekly famotidine (PEPCID) 20 mg, Oral, Nightly HYDROcodone-acetaminophen ([place]) 5-325 MG tablet 1 tablet, Oral, Every 12 hours PRN Lantus SoloStar 55 Units, Subcutaneous, Nightly losartan (COZAAR) 100 mg, Oral, Daily, Take 100 mg by mouth Daily metFORMIN (GLUCOPHAGE) 1,000 mg, Oral, 2 times daily with meals Mounjaro 10 mg, Subcutaneous, Every 7 days pantoprazole (PROTONIX) 40 mg, Oral, Daily tiZANidine (ZANAFLEX) 4 mg, Oral, Nightly PRN True Metrix Blood Glucose Test test strip 1 each, Daily Ventolin HFA 108 (90 Base) MCG/ACT inhaler 2 puffs, Inhalation, Every 6 hours PRN ALLERGIES: Allergies Allergen Reactions Cephalexin Unknown Penicillins Sulfa Antibiotics REVIEW OF SYMPTOMS: Review of Systems Constitutional: Negative for appetite change, chills and fever. HENT: Negative for congestion, ear pain and sore throat. Eyes: Negative for blurred vision, pain, discharge, redness and visual disturbance. Respiratory: Negative for cough, shortness of breath and wheezing. Cardiovascular: Negative for chest pain, palpitations, orthopnea and leg swelling. Gastrointestinal: Negative for abdominal pain, blood in stool, constipation, diarrhea, nausea and vomiting. Genitourinary: Negative for difficulty urinating, dysuria and frequency. Musculoskeletal: Positive for arthralgias and back pain. Negative for joint swelling, myalgias and neck pain. Skin: Negative for rash and wound. Neurological: Negative for dizziness, tremors, seizures, syncope, weakness and headaches. Psychiatric/Behavioral: Negative for behavioral problems, self-injury and suicidal ideas. The patient is not nervous/anxious. Hematological: Does not bruise/bleed easily. Endocrine: Negative for polydipsia, polyphagia and polyuria. Allergic/Immunologic: Negative for environmental allergies and food allergies. PAST MEDICAL HISTORY Past Medical History: Diagnosis Date Arthritis DDD (degenerative disc disease), cervical 11/23/2023 Diabetic neuropathy, type II diabetes mellitus ([facility]) 11/23/2023 Elevated alkaline phosphatase level 11/23/2023 Gastroesophageal reflux disease without esophagitis 10/06/2023 Menopause 11/23/2023 Mixed hyperlipidemia ([facility]) 09/17/2023 Neoplasm of uncertain behavior 11/23/2023 Osteoarthritis of right knee 11/23/2023 Primary hypertension ([facility]) 10/01/2023 Right upper extremity numbness Stroke ([facility]) 11/23/2023 Type 2 diabetes mellitus with insulin therapy ([facility]) 11/23/2023 Visual impairment 11/23/2023 Past Surgical History: Procedure Laterality Date CERVICAL FUSION 1999 KNEE ARTHROPLASTY Right 2017 [place] KNEE SURGERY Right 2019 knee Infection in operative knee, treated at [facility] family history is not on file. OBJECTIVE: Visit Vitals BP 132/84 (BP Location: Left arm, Patient Position: Sitting, BP Cuff Size: Adult long) Pulse 97 Temp 98.5 F (Temporal) Resp 18 Ht 5' 3 Wt 202 lb 9.6 oz SpO2 95% BMI 35.89 kg/m Smoking Status Every Day BSA 2.02 m Physical Exam Vitals and nursing note reviewed. Constitutional: General: She is not in acute distress. Appearance: Normal appearance. She is obese. She is not ill-appearing. HENT: Head: Normocephalic and atraumatic. Right Ear: External ear normal. Left Ear: External ear normal. Nose: Nose normal. Mouth/Throat: Mouth: Mucous membranes are moist. Eyes: Extraocular Movements: Extraocular movements intact. Conjunctiva/sclera: Conjunctivae normal. Neck: Vascular: No carotid bruit. Cardiovascular: Rate and Rhythm: Normal rate and regular rhythm. Pulses: Normal pulses. Heart sounds: Normal heart sounds. Pulmonary: Effort: Pulmonary effort is normal. Breath sounds: Normal breath sounds. No wheezing (inspiratory). Abdominal: General: Bowel sounds are normal. There is no distension. Palpations: Abdomen is soft. There is no mass. Tenderness: There is no abdominal tenderness. Musculoskeletal: Cervical back: Normal range of motion and neck supple. Right lower leg: No edema. Left lower leg: No edema. Comments: Decreased lumbar ROM -SLR X2, MMT 5/5 bilat LE +tenderness to lower lumbar , mild +FABERs left Lymphadenopathy: Cervical: No cervical adenopathy. Skin: General: Skin is warm and dry. Capillary Refill: Capillary refill takes 2 to 3 seconds. Findings: No rash. Neurological: General: No focal deficit present. Mental Status: She is alert and oriented to person, place, and time. Psychiatric: Mood and Affect: Mood normal. Behavior: Behavior normal. Thought Content: Thought content normal. Judgment: Judgment normal. ASSESSMENT AND PLAN: Follow up in about 3 months (around 12/13/2024). Problem List Items Addressed This Visit Mixed hyperlipidemia (CMS/HCC) Current meds: statin Check labs yearly and prn Relevant Medications atorvastatin (Lipitor) 80 MG tablet Primary hypertension (CMS/HCC) Please check blood pressure daily and record DASH diet Limit caffeine Take medication as directed Contact office if chest pain, pressure, dizziness, shortness of breath, swelling legs Recommend slow position changes Current meds: amlodipine and losartan Relevant Medications amLODIPine (Norvasc) 10 MG tablet losartan (Cozaar) 100 MG tablet Gastroesophageal reflux disease without esophagitis Recommendations: freq small meals, nothing to eat or drink at least 2 hours prior to bed, limit caffeine, alcohol, as well as spicy foods Meds to limit or avoid if possible: NSAIDS Elevate HOB if possible Current med: pantoprazole Relevant Medications famotidine (Pepcid) 20 MG tablet pantoprazole (ProtoNix) 40 MG EC tablet Stroke ([facility]) Current meds: asa, plavix, statin Relevant Medications clopidogrel (Plavix) 75 MG tablet Diabetic neuropathy, type II diabetes mellitus ([facility]) No current meds for this Gabapentin gave bad nightmares Does not want to trial lyrica Type 2 diabetes mellitus with insulin therapy ([facility]) - Primary Check blood sugars daily, notify if <70 [...] trial an increase in mounjaro to 10mg Relevant Medications empagliflozin (Jardiance) 25 MG metFORMIN (Glucophage) 1000 MG tablet Tirzepatide (Mounjaro) 10 MG/0.5ML solution auto-injector Obesity (BMI 30-39.9) Discussed with patient their BMI (actual, verses recommended). We have also discussed lifestyle modifications: attempts to perform physical activity as chronic conditions allow, also to monitor dietary intake: increasing protein/fruits/veggies and lowering carb intake (unless contraindicated). Limit sodas, juices, and sugary drinks. Chronic bilateral low back pain without sciatica Is asking about opioid pain meds, as [...] her gait is thrown off OARRS reviewed Relevant Medications HYDROcodone-acetaminophen ([place]) 5-325 MG tablet tiZANidine (Zanaflex) 4 MG tablet Other Visit Diagnoses Type 2 diabetes mellitus treated without insulin (CMS/HCC) Associated Problem(s): Stroke (CMS/HCC) Current meds: asa, plavix, statin Associated Problem(s): Mixed hyperlipidemia (CMS/[facility]) Current meds: statin Check labs yearly and prn Associated Problem(s): Type 2 diabetes mellitus with insulin therapy (CMS/[facility]) Check blood sugars daily, notify if <70 [...] trial an increase in mounjaro to 10mg Associated Problem(s): Obesity (BMI 30-39.9) Discussed with patient their BMI (actual, verses recommended). We have also discussed lifestyle modifications: attempts to perform physical activity as chronic conditions allow, also to monitor dietary intake: increasing protein/fruits/veggies and lowering carb intake (unless contraindicated). Limit sodas, juices, and sugary drinks. Associated Problem(s): Gastroesophageal reflux disease without esophagitis Recommendations: freq small meals, nothing to eat or drink at least 2 hours prior to bed, limit caffeine, alcohol, as well as spicy foods Meds to limit or avoid if possible: NSAIDS Elevate HOB if possible Current med: pantoprazole Associated Problem(s): Primary hypertension (CMS/HCC) Please check blood pressure daily and record DASH diet Limit caffeine Take medication as directed Contact office if chest pain, pressure, dizziness, shortness of breath, swelling legs Recommend slow position changes Current meds: amlodipine and losartan Associated Problem(s): Diabetic neuropathy, type II diabetes mellitus (CMS/HCC) No current meds for this Gabapentin gave bad nightmares Does not want to trial lyrica documented in this encounter [facility] 09-14-2024 Instructions Judi Jimenez NP - 09/14/2024 5:30 PM EST Try muscle relaxer tizanidine at 4mg before bedtime as needed for muscle spasms in back Stretching exercises If not better consider Pain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
--- NOTE | 2025-03-02 16:00 | PM.CN ---
Consult Note: HPI Data of Consult Patient: new to practice Consult date: 01/09/25 Requesting Physician: Ashley Benoit NP Primary Care Provider: Judi Jimenez NP Consult Narrative Reason for consult: low back, right leg pain Narrative: 69yof who presents for evaluation. longstanding low back pain with radiation into right lower extremity. has engaged in a series of provider directed home exercises >6 weeks, without lasting benefit. recent lumbar mri consitent with multilevel degenerative changes and stenosis. pt had side effects with gabapentin, could not tolerate severe vivid dreams. currently utilizing tylenol prn. could not tolerate flexeril or baclofen due to drowsiness. cannot take nsaids, on plavix. cc:: CC: Ashley Benoit NP Review of Systems ROS Status of ROS 10 or more systems reviewed and unremarkable except as noted in history and below Meds Home Medications and Allergies Home Medications ?Medication ?Instructions ?Recorded ?Confirmed ?Type albuterol sulfate 90 mcg/actuation 2 inh inhalation Q6H PRN shortness 01/10/25 01/10/25 History aerosol inhaler (Ventolin HFA) of breath or wheezing amlodipine 10 mg tablet 10 mg PO DAILY 01/10/25 01/10/25 History atorvastatin 80 mg tablet 80 mg PO DAILY 01/10/25 01/10/25 History budesonide 160 mcg-glycopyr 9 2 inh inhalation BID 01/10/25 01/10/25 History mcg-formot 4.8 mcg/actuation HFA inhaler (Breztri Aerosphere) clopidogrel 75 mg tablet (Plavix) 75 mg PO DAILY 01/10/25 01/10/25 History cyclobenzaprine 10 mg tablet 10 mg PO TID PRN muscle spasm 01/10/25 01/10/25 History empagliflozin 25 mg tablet 25 mg PO DAILY 01/10/25 01/10/25 History (Jardiance) ergocalciferol (vitamin D2) 1,250 50,000 unit PO QWEEK 01/10/25 01/10/25 History mcg (50,000 unit) capsule (Vitamin D2) famotidine 20 mg tablet 20 mg PO DAILY 01/10/25 01/10/25 History insulin glargine 100 unit/mL 55 unit subcut DAILY 01/10/25 01/10/25 History subcutaneous solution (Lantus U-100 Insulin) losartan 100 mg tablet 100 mg PO DAILY 01/10/25 01/10/25 History metformin 1,000 mg tablet 1,000 mg PO BID 01/10/25 01/10/25 History pantoprazole 40 mg tablet,delayed 40 mg PO DAILY 01/10/25 01/10/25 History release tirzepatide 10 mg/0.5 mL 10 mg subcut QWEEK 01/10/25 01/10/25 History subcutaneous pen injector (Mounjaro) Allergies Allergy/AdvReac Type Severity Reaction Status Date / Time Penicillins Allergy Severe cardiac Verified 01/10/25 12:00 Sulfa (Sulfonamide Allergy Severe Unknown Verified 01/10/25 12:00 Antibiotics) Exam Narrative Exam Narrative: Psych-alert and oriented x 3. Attentive and appropriate, constitutionally normal, displays normal mood and affect per situation. There are no obvious deficits in memory, reasoning, or intellect.? Skin-no obvious rashes, bruising, erythema noted to the patient's area of pain.? Extremities- extremities are warm with minimal edema and palpable pulses. Lumbar-tenderness to palpation noted in the lumbar spine and paraspinal musculature. Pain is elicited with flexion, extension, and lateral rotation of the lumbar spine. Range of motion is diminished with these motions. Facet loading maneuvers are positive. Strength-noted to be unremarkable Sensory-no notable sensory deficits in the bilateral lower extremities to touch or pinprick in all dermatomal distributions with the exception to decreased sensation to the right L3, 4, 5 dermatomal distribution Coordination remains intact.? Gait remains non-antalgic. Assessment and Plan Assessment and Plan (1) Lumbar stenosis with neurogenic claudication: (2) Lumbar spondylosis: Plan 69yof who presents for evaluation. failed conservative measures, as noted. given symptoms and exam, lumbar mri reviewed with pt. start pregabalin 75mg BID, risks vs benefits reviewed. she is not interested in NS consultation. declining right L3-4 L4-5 TFESI at this time, would like to think more about. f/u 1 month for medication management, or 2 weeks after TFESI if she wishes to proceed
== END 2025-03-02 14:29 | disposition home or self-care (01) ==
LOC: PM 14:29
PROVIDERS: PCP Nurse Practitioner; Visit Provider Nurse Practitioner
DX: M48.062 Spinal stenosis, lumbar region with neurogenic claudication (principal); M47.816 Spondylosis without myelopathy or radiculopathy, lumbar region
CPT/HCPCS: G0463

== ENCOUNTER 2025-03-13 10:22 | Day surgery (SDC) | payer OTHER, SELFPAY ==
--- OUTSIDE RECORDS SUMMARY | 2025-03-13 10:27 | XMS_ITS | Encounter Summary ---
Author Organization [facility] Address [address] [place] [address] Care Team Providers Care Farm Equipment Maintenance Supervisor Name Role Phone Judi Jimenez NP Unavailable [phone] Jamir Hare MD Primary Care Provider [phone] Jamir Hare MD Unavailable Encounter Details Date Type Department Care Team (Late st Contact Info) Description 02/10/2025 Orders Only [facility] [address] [place] [address] Kelvin Arreguin MD [address] [place] [address] Social History Tobacco Use Types [...] often do you attend chur ch or cheondoism services? Never 12/28/2023 Do you belong to any clubs o r organizations such as yazdanism groups, unions, fraternal or athletic groups, or [...] Recorded Patient Health Questionnaire-2 Score 1 01/25/2025 [facility] - Occupational Stress Questionnaire Answer Date [...] place to sleep or slept in a correction (including now)? No 12/28/2023 Comments Unknown Sex [...] Visit [facility] [address] [place] [address] Judi Jimenez NP [address] [place] [address] 01/29/2026 5:30 PM EDT Office Visit [facility] [address] [place] [address] Judi Jimenez NP [address] [place] [address] documented as of this encounter Procedures Procedure [...] documented as of this encounter Care Teams Farm Equipment Maintenance Supervisor Relationship Specialty Start Date End Date Jamir Hare MD [address] [place] [address] PCP - General Family Medicine 10/30/23 Jamir Hare MD [address] [place] [address] PCP - Devoted 01/04/24 Judi Jimenez NP [address] [place] [address] Nurse Practitioner Family Medicine 10/05/22 documented as of this encounter
--- OUTSIDE RECORDS SUMMARY | 2025-03-13 10:27 | XMS_ITS | Encounter Summary ---
Author Organization [facility] Address [address] [place] [address] Care Team Providers Care Sisal Operator Name Role Phone Judi Jimenez NP Unavailable [phone] Jamir Hare MD Primary Care Provider [phone] Jamir Hare MD Unavailable Encounter Details Date Type Department Care Team (Late st Contact Info) Description 03/08/2025 Telephone [facility] [address] [place] [address] Judi Jimenez NP [address] [place] [address] Social History Tobacco Use Types Packs/Day Years [...] often do you attend chur ch or pentecostal services? Never 12/28/2023 Do you belong to any clubs o r organizations such as christianity groups, unions, fraternal or athletic groups, or [...] Recorded Patient Health Questionnaire-2 Score 1 01/25/2025 [facility] Occupat ional [facility] - Occupational Stress Questionnaire Answer Date [...] place to sleep or slept in a [place] health care facility (including now)? No 12/28/2023 Comments Unknown Sex and Gender Information Value Date Recorded Sex Assigned at Not on file Legal Sex Female 11:14 PM EDT Gender Identity Not on file Sexual Orientation Not on file documented as of this encounter Miscellaneous Notes * Telephone Encounter - PARMJIT VALLES - 03/08/2025 1:09 PM EDT NEEDS DANIELLE 3 PLUS SENSOR documented in this encounter Plan of Treatment Upcoming Encounters Date Type Department Care Team (Late st Contact Info) Description 04/26/2025 5:30 PM EDT Office Visit [facility] [address] [place] [address] Judi Jimenez NP [address] [place] [address] 01/29/2026 5:30 PM EDT Office Visit [facility] [address] [place] [address] Judi Jimenez NP [address] [place] [address] documented as of this encounter Visit Diagnoses Not on filedocumented in this encounter Additional Health Concerns Assessment Noted Time PHQ-9 Depression Total Score: 8 01/26/20 25 5:43 PM EDT documented as of this encounter Care Teams Sisal Operator Relationship Specialty Start Date End Date Jamir Hare MD [address] [place] [address] PCP - General Family Medicine 10/30/23 Jamir Hare MD [address] [place] [address] PCP - Devoted 01/04/24 Judi Jimenez NP [address] [place] [address] Nurse Practitioner Family Medicine 10/05/22 documented as of this encounter
--- OUTSIDE RECORDS SUMMARY | 2025-03-13 10:27 | XMS_ITS | Encounter Summary ---
Author Organization [facility] Address [address] [place] [address] Care Team Providers Care Field Crop Grower Name Role Phone Judi Jimenez NP Unavailable [phone] Jamir Hare MD Primary Care Provider [phone] Jamir Hare MD Unavailable Encounter Details Date Type Department Care Team (Late st Contact Info) Description 12/02/2023 Clinisync Result Encounter [facility] External Department Unsolicited Judi Jimenez NP [address] [place] [address] Social History Tobacco Use Types [...] Visit [facility] [address] [place] [address] Judi Jimenez NP [address] [place] [address] 01/29/2026 5:30 PM EDT Office Visit [facility] [address] [place] [address] Judi Jimenez NP [address] [place] [address] documented as of this encounter Procedures Procedure Name Priority Date/Time Associated Diagnosis Comments MM TOMOSYNTHESIS DIAGNOSTIC BI 12/02/2023 8:57 AM EST documented in this encounter Results * MM TOMOSYNTHESIS DIAGNOSTIC BI (12/02/2023 8:57 AM EST) Anatomical Region Laterality Modality Other 12/02/2023 8:57 AM EST Narrative 12/02/2023 8:57 [place] [address] Mammography Report Signed Patient: VANI ARREOLA MR#: [id number] : 1955 Acct:[id number] Age/Sex: 67 / F ADM Date: 12/02/23 Loc: MAMMO Attending Dr: Judi Jimenez NP Ordering Physician: Judi Jimenez NP Results: Date of Service: 12/02/23 Follow Up: Procedure(s): MM tomosynthesis diagnostic BI Accession Number(s): [id number] cc: Judi Jimenez NP Patient Name: VANI ARREOLA MR#: [id number] : 1955 Exam Date: 12/02/2023 Ordering Doctor: [...] colon cancer at age 58. LOCATION: [facility] BREAST COMPOSITION: Scattered areas fibroglandular density. FINDINGS: DIAGNOSTIC CATEGORY 2--BENIGN FINDING. NO CHANGE FROM COMPARISON. Scattered benign-appearing calcifications are present. Scattered benign-appearing lymph nodes are present. RIGHT BREAST: No significant suspicious finding. LEFT BREAST: No significant suspicious finding. [place] marker demarcates a palpable mass upper-outer quadrant, [...] Signed By: 12/02/23 0857 DD/ 0857 TD/TT: Timber Spotter: Procedure Note Radiology, Radiologist, - 12/02/2023 [place] [address] Mammography Report Signed Patient: VANI ARREOLA KMR#: [id number] : 1955cct:[id number] Age/Sex: 67 / FADM Date: 12/02/23 Loc: MAMMO Attending Dr: Judi Jimenez NP Ordering Physician: Judi Jimenez NPResults: Date of Service: 12/02/23Follow Up: Procedure(s): MM tomosynthesis diagnostic BI Accession Number(s): [id number] cc: Judi Jimenez NP Patient Name: VANI ARREOLA MR#: [id number] : 1955 Exam Date: 12/02/2023 Ordering Doctor: [...] colon cancer at age 58. LOCATION: [facility] BREAST COMPOSITION: Scattered areas fibroglandular density. FINDINGS: DIAGNOSTIC CATEGORY 2--BENIGN FINDING. NO CHANGE FROM COMPARISON. Scattered benign-appearing calcifications are present. Scattered benign-appearing lymph nodes are present. RIGHT BREAST: No significant suspicious finding. LEFT BREAST: No significant suspicious finding. [place] markerdemarcates a palpable mass upper-outer quadrant, posterior [...] Andre Walden M.D. Signed By:12/02/2357 DD/ TD/TT: Timber Spotter: Judi Jimenez NP [facility]AG[facility] Final Result documented in this encounter Visit Diagnoses Not on filedocumented in this encounter Care Teams Field Crop Grower Relationship Specialty Start Date End Date Jamir Hare MD [address] [place] [address] PCP - General Family Medicine 10/30/23 Jamir Hare MD [address] [place] [address] PCP - Devoted 01/04/24 Judi Jimenez NP [address] [place] [address] Nurse Practitioner Family Medicine 10/05/22 documented as of this encounter
--- OUTSIDE RECORDS SUMMARY | 2025-03-13 10:27 | XMS_ITS | Encounter Summary ---
Author Organization [facility] Address [address] [place] [address] Care Team Providers Care Switch Foreman Name Role Phone Judi Jimenez NP Unavailable [phone] Jamir Hare MD Primary Care Provider [phone] Jamir Hare MD Unavailable Encounter Details Date Type Department Care Team (Late st Contact Info) Description 12/02/2023 Clinisync Result Encounter [facility] External Department Unsolicited Judi Jimenez NP [address] [place] [address] Social History Tobacco Use Types [...] Visit [facility] [address] [place] [address] Judi Jimenez NP [address] [place] [address] 01/29/2026 5:30 PM EDT Office Visit [facility] [address] [place] [address] Judi Jimenez, RUFINO [address] [place] [address] documented as of this encounter Procedures Procedure [...] EST Judi Jimenez NP [facility] US BREAST LT LIMITED (12/02/2023 8:57 AM EST) Anatomical Region Laterality Modality Other 12/02/2023 8:57 AM EST Narrative 12/02/2023 8:58 [place] [address] Ultrasound Report Signed Patient: VANI ARREOLA MR#: [id number] : 1955 Acct:[id number] Age/Sex: 67 / F ADM Date: 12/02/23 Loc: MAMMO Attending Dr: Judi Jimenez NP Ordering Physician: Judi Jimenez NP Date of Service: 12/02/23 Procedure(s): US breast LT limited Accession Number(s): [id number] cc: Judi Jimenez NP Patient Name: VANI ARREOLA MR#: [id number] : 1955 Exam Date: 12/02/2023 Ordering Doctor: [...] colon cancer at age 58. LOCATION: [facility] BREAST COMPOSITION: Scattered areas fibroglandular density. FINDINGS: DIAGNOSTIC CATEGORY 2--BENIGN FINDING. NO CHANGE FROM COMPARISON. Scattered benign-appearing calcifications are present. Scattered benign-appearing lymph nodes are present. RIGHT BREAST: No significant suspicious finding. LEFT BREAST: No significant suspicious finding. [place] marker demarcates a palpable mass upper-outer quadrant, [...] Signed By: 12/02/23 0858 DD/ 0857 TD/TT: Multiple Effect Evaporator Operator: Procedure Note Radiology, Radiologist, - 12/02/2023 [place] [address] Ultrasound Report Signed Patient: VANI ARREOLA KMR#: [id number] : 7Acct:[id number] Age/Sex: 67 / FADM Date: 12/02/23 Loc: MAMMO Attending Dr: Judi Jimenez NP Ordering Physician: Judi Jimenez NP Date of Service: 12/02/23 Procedure(s): US breast LT limited Accession Number(s): [id number] cc: Judi Jimenez NP Patient Name: VANI ARREOLA MR#: [id number] : 1955 Exam Date: 12/02/2023 Ordering Doctor: [...] colon cancer at age 58. LOCATION: [facility] BREAST COMPOSITION: Scattered areas fibroglandular density. FINDINGS: DIAGNOSTIC CATEGORY 2--BENIGN FINDING. NO CHANGE FROM COMPARISON. Scattered benign-appearing calcifications are present. Scattered benign-appearing lymph nodes are present. RIGHT BREAST: No significant suspicious finding. LEFT BREAST: No significant suspicious finding. [place] markerdemarcates a palpable mass upper-outer quadrant, posterior [...] Walden M.D. Signed By:12/02/23 0858 DD/ TD/TT: Multiple Effect Evaporator Operator: Judi Jimenez NP [facility] Final Result * [facility] VITAMIN D 25 [place] (12/02/2023 7:41 AM EST) VITAMIN D 43.3 ng/mL [facility] Comment: <20 ng/mL Vit D deficient 20-<30 ng/mL Vit D insufficient 30-100 ng/mL Vit D sufficient >100 ng/mL Potential Toxicity 12/02/2023 7:41 AM EST 12/02/2023 7:44 AM EST Narrative [facility] - 12/02/2023 2:20 PM EST us Judi Jimenez BUILDING ENGINEER [facility] Final Result Performing Organization Address City/[facility] Co de Phone Number CLINMADI TB * [...] NP CLINISYNC Final Result Performing Organization Address [facility] de Phone Number SARAH TB documented in this encounter Visit Diagnoses Not on filedocumented in this encounter Care Teams Switch Foreman Relationship Specialty Start Date End Date Jamir Hare MD [address] [place] [address] PCP - General Family Medicine 10/30/23 Jamir Hare MD [address] [place] [address] PCP - Devoted 01/04/24 Judi Jimenez NP [address] [place] [address] Nurse Practitioner Family Medicine 10/05/22 documented as of this encounter
--- OUTSIDE RECORDS SUMMARY | 2025-03-13 10:27 | XMS_ITS | Encounter Summary ---
Author Organization [facility] Address [address] [place] [address] Care Team Providers Care Guitar Maker Hand Name Role Phone Judi Jimenez NP Unavailable [phone] Jamir Hare MD Primary Care Provider [phone] Jamir Hare MD Unavailable Encounter Details Date Type Department Care Team (Late st Contact Info) Description 03/08/2025 Refill [facility] [address] [place] [address] Judi Jimenez NP [address] [address] Type 2 diabetes mellitus with insulin therapy ([facility]) (Primary Dx) Social History Tobacco Use Types Packs/Day Years [...] How often do you attend chur or druze services? Never 12/28/2023 Do you belong to [...] Recorded Patient Health Questionnaire-2 Score 1 01/25/2025 [facility] Occupat ional Health - Occupational Stress [...] place to sleep or slept in a fdc (including now)? No 12/28/2023 Comments Unknown Sex [...] Visit [facility] [address] [place] [address] Judi Jimenez NP [address] [place] [address] 01/29/2026 5:30 PM EDT Office Visit [facility] [address] [place] [address] Judi Jimenez NP [address] [place] [address] documented as of this encounter Visit Diagnoses Diagnosis Type 2 diabetes mellitus with insulin therapy (CMS/HCC)- Primary documented in this encounter Additional Health Concerns Assessment Noted Time PHQ-9 Depression Total Score: 8 01/26/20 25 5:43 PM EDT documented as of this encounter Care Teams Guitar Maker Hand Relationship Specialty Start Date End Date Jamir Hare MD [address] [place] [address] PCP - General Family Medicine 10/30/23 Jamir Hare MD [address] [place] [address] PCP - Devoted 01/04/24 Judi Jimenez NP [address] [place] [address] Nurse Practitioner Family Medicine 10/05/22 documented as of this encounter
--- OUTSIDE RECORDS SUMMARY | 2025-03-13 10:27 | XMS_ITS | Encounter Summary ---
Author Organization [facility] Address [address] [place] [address] Care Team Providers Care Avionics Repair Technician Name Role Phone Judi Jimenez NP Unavailable [phone] Jamir Hare MD Primary Care Provider [phone] Jamir Hare MD Unavailable Reason for Visit * Reason Comments Med Refill Encounter Details Date Type Department Care Team (Late st Contact Info) Description 12/10/2023 Refill [facility] [address] [place] [address] Judi Jimenez NP [address] [place] [address] Social History Tobacco Use Types Packs/Day Years [...] Telephone Encounter - Judi Jimenez NP - 12/12/2023 12:39 PM EST Already addressed documented in this encounter Plan of Treatment Upcoming Encounters Date Type Department Care Team (Late st Contact Info) Description 04/26/2025 5:30 PM EDT Office Visit [facility] [address] [place] [address] Judi Jimenez NP [address] [place] [address] 01/29/2026 5:30 PM EDT Office Visit [facility] [address] [place] [address] Judi Jimenez NP [address] [place] [address] documented as of this encounter Visit Diagnoses Not on filedocumented in this encounter Care Teams Avionics Repair Technician Relationship Specialty Start Date End Date Jamir Hare MD [address] [place] [address] PCP - General Family Medicine 10/30/23 Jamir Hare MD [address] [place] [address] PCP - Devoted 01/04/24 Judi Jimenez NP [address] [place] [address] Nurse Practitioner Family Medicine 10/05/22 documented as of this encounter
--- OUTSIDE RECORDS SUMMARY | 2025-03-13 10:27 | XMS_ITS | Encounter Summary ---
Author Organization [facility] Address [address] [place] [address] Care Team Providers Care Hospital Receptionist Name Role Phone Judi Jimenez NP Unavailable [phone] Jamir Hare MD Primary Care Provider [phone] Jamir Hare MD Unavailable Encounter Details Date Type Department Care Team (Late Contact Info) Description 11/18/[address] [facility] [address] [place] [address] Judi Jimenez NP [address] [place] [address] Social History Tobacco Use Types Packs/Day Years [...] 04/26/2025 5:30 PM EDT Office Visit [facility] [address] [place] [address] Judi Jimenez NP [address] [place] [place] [address] 01/29/2026 5:30 PM EDT Office Visit [facility] [address] [place] [address] Judi Jimenez, RUFINO [address] [place] [address] documented as of this encounter Visit Diagnoses Not on filedocumented in this encounter Care Teams Hospital Receptionist Relationship Specialty Start Date End Date Jamir Hare MD [address] [place] [address] PCP - General Family Medicine 10/30/23 Jamir Hare MD [address] [place] [address] PCP - Devoted 01/04/24 Judi Jimenez NP [address] [place] [address] Nurse Practitioner Family Medicine 10/05/22 documented as of this encounter
--- OUTSIDE RECORDS SUMMARY | 2025-03-13 10:28 | XMS_ITS | Encounter Summary ---
Author Organization [facility] Address [address] [place] [address] Care Team Providers Care Child Abuse Worker Name Role Phone Judi Jimenez NP Unavailable [phone] Jamir Hare MD Primary Care Provider [phone] Jamir Hare MD Unavailable Reason for Visit * Reason Comments Med Change Request Encounter Details Date Type Department Care Team (Late st Contact Info) Description 09/14/2024 Refill [facility] [address] [place] [address] Judi Jimenez NP [address] [place] [address] Type 2 diabetes mellitus with insulin therapy ([facility]) Social History Tobacco Use Types Packs/Day Years [...] How often do you attend chur or worship services? Never 12/28/2023 Do you belong to any clubs o r organizations such as taoist groups, unions, fraternal or athletic groups, or [...] Recorded Patient Health Questionnaire-2 Score 1 04/18/2024 [facility] of Occupat ional Health - Occupational [...] place to sleep or slept in a custodial (including now)? No 12/28/2023 Comments Unknown Sex [...] Visit [facility] [address] [place] [address] Judi Jimenez NP [address] [place] [place] [address] 01/29/2026 5:30 PM EDT Office Visit [facility] [address] [place] [address] Judi Jimenez NP [address] [place] [address] documented as of this encounter Visit Diagnoses Diagnosis Type 2 diabetes mellitus with insulin therapy (CMS/HCC) documented in this encounter Additional Health Concerns Assessment Noted Time PHQ-9 Depression Total Score: 3 12/28/19 24 5:09 PM EDT documented as of this encounter Care Teams Child Abuse Worker Relationship Specialty Start Date End Date Jamir Hare MD [address] [place] [address] PCP - General Family Medicine 10/30/23 Jamir Hare MD [address] [place] [address] PCP - Devoted 01/04/24 Judi Jimenez NP [address] [place] [address] Nurse Practitioner Family Medicine 10/05/22 documented as of this encounter
--- OUTSIDE RECORDS SUMMARY | 2025-03-13 10:28 | XMS_ITS | Encounter Summary ---
Author Organization [facility] Address [address] [place] [address] Care Team Providers Care Marketing Regional Consultant Name Role Phone Judi Jimenez NP Unavailable [phone] Jamir Hare MD Primary Care Provider [phone] Jamir Hare MD Unavailable Encounter Details Date [...] often do you attend chur ch or moravian services? Never 12/28/2023 Do you belong to any clubs o r organizations such as mormon groups, unions, fraternal or athletic groups, or [...] Recorded Patient Health Questionnaire-2 Score 1 04/18/2024 [facility] of Occupat ional Health - [...] place to sleep or slept in a [facility] (including now)? No 12/28/2023 Comments Unknown Sex [...] Visit [facility] [address] [place] [address] Judi Jimenez NP [address] [place] [address] 01/29/2026 5:30 PM EDT Office Visit [facility] [address] [place] [address] Judi Jimenez NP [address] [place] [address] documented as of this encounter Procedures Procedure Name Priority Date/Time Associated Diagnosis Comments NM BONE IMAGE 3 PHASE 09/05/2024 6:32 AM EST documented in this encounter Results * NM BONE IMAGE 3 PHASE (09/05/2024 6:32 AM EST) Anatomical Region Laterality Modality Radiographic Joyce ging 09/05/2024 6:32 AM EST Narrative 09/05/2024 6:35 [place] [address] Nuclear Medicine Report Signed Patient: DIONNE ARREOLA MR#: [id number] : 1955 Acct:[id number] Age/Sex: 68 / F ADM Date: 09/02/24 Loc: [place] Attending Dr: JUAN JUSTICE FENCE MANUFACTURE SUPERVISOR Ordering Physician: JUAN JUSTICE NP Date of Service: 09/02/24 Procedure(s): NM bone 3 phase Accession Number(s): [id number] cc: JUAN JUSTICE FENCE MANUFACTURE SUPERVISOR; Judi Jimenez NP [place] [address] Patient Name: DIONNE ARREOLA MRN: [id number] date: 1955 Sex: F Assigned Patient Location: [place] Current Patient Location: Accession/Order Number: [id number] Exam Date: 09/02/2024 08:00 Report Date: 09/05/2024 [...] M.D. Signed By: 09/05/2435 DD/ 1 TD/TT: Botany Laboratory Assistant: Procedure Note Radiology, Radiologist, - 09/05/2024 [place] [address] Nuclear Medicine Report Signed Patient: DIONNE ARREOLA KMR#: [id number] : 1955cct:[id number] Age/Sex: 68 / FADM Date: 09/02/24 Loc: [place] Attending Dr: JUAN JUSTICE FENCE MANUFACTURE SUPERVISOR Ordering Physician: JUAN JUSTICE NP Date of Service: 09/02/24 Procedure(s): NM bone 3 phase Accession Number(s): [id number] cc: JUAN JUSTICE FENCE MANUFACTURE SUPERVISOR; Judi Jimenez NP [address] [place] [address] Patient Name: DIONNE ARREOLA MRN: [id number] date: 1955 Sex: F Assigned Patient Location: [place] Current Patient Location: Accession/Order Number: [id number] Exam Date: 09/02/2024 08:00 Report Date: 09/05/2024 06:32 At the request of: JUAN JUSTICE Procedure: NM bone 3 phase EXAMINATION: ME bone 3 phase HISTORY: STATUS POST RIGHT [...] likely due to degenerative changes. OTHER: Negative. NM/ME bone 3 phase IMPRESSION: 1. Mild radiotracer activity surrounding the right knee prostheticcomponents consistent with chronic remodeling; not unexpected. No specific findingsto suggest loosening. 2. Suspect degenerative changes of the left knee. No prior radiographs ofthe left knee. Electronically authenticated by: ALOK BOOKER Date: 09/05/2024 06:32 Dictated By: Alok Booker M.D. Signed By:09/05/24 0635 DD/ 0632 TD/TT: Botany Laboratory Assistant: us Generic External Data Provider IMG XR PROCEDURES Final Result documented in this encounter Visit Diagnoses Not on filedocumented in this encounter Additional Health Concerns Assessment Noted Time PHQ-9 Depression Total Score: 3 12/28/19 24 5:09 PM EDT documented as of this encounter Care Teams Marketing Regional Consultant Relationship Specialty Start Date End Date Jamir Hare MD [address] [place] [address] PCP - General Family Medicine 10/30/23 Jamir Hare MD [address] [place] [address] PCP - Devoted 01/04/24 Judi Jimenez NP [address] [place] [address] Nurse Practitioner Family Medicine 10/05/22 documented as of this encounter
--- OUTSIDE RECORDS SUMMARY | 2025-03-13 10:28 | XMS_ITS | Encounter Summary ---
Author Organization [facility] Address [address] [place] [address] Care Team Providers Care Melter Caster Name Role Phone Judi Jimenez NP Unavailable [phone] Jamir Hare MD Primary Care Provider [phone] Jamir Hare MD Unavailable Encounter Details Date Type Department Care Team (Late st Contact Info) Description 12/29/2024 Orders Only [facility] [address] [place] [address] Judi Jimenez NP [address] [place] [address] Social History Tobacco Use Types Packs/Day Years [...] often do you attend chur ch or bahai services? Never 12/28/2023 Do you belong to any clubs o r organizations such as jainism groups, unions, fraternal or athletic groups, or [...] Recorded Patient Health Questionnaire-2 Score 1 04/18/2024 [facility] Questionnaire Answer Date Recorded [...] place to sleep or slept in a senior care (including now)? No 12/28/2023 Comments Unknown Sex [...] Office Visit [facility] [address] [place] [address] Judi Jimenez NP [address] [place] [phone] 01/29/2026 5:30 PM EDT Office Visit [facility] [address] [place] [address] Judi Jimenez NP [address] [place] [phone] documented as of this encounter Procedures Procedure Name Priority Date/Time Associated Diagnosis Comments SCANNED LABS Routine 12/29/2024 9:36 AM EDT documented in this encounter Results * SCANNED LABS (12/29/2024 9:36 AM EDT) Judi Jimenez SENIOR TECHNICAL PROGRAM MANAGER LAB CHG PERFORMABLES Final Resu lt documented in this encounter Visit Diagnoses Not on filedocumented in this encounter Additional Health Concerns Assessment Noted Time PHQ-9 Depression Total Score: 3 12/28/19 24 5:09 PM EDT documented as of this encounter Care Teams Melter Caster Relationship Specialty Start Date End Date Jamir Hare MD [address] [place] [address] PCP - General Family Medicine 10/30/23 Jamir Hare MD [address] [place] [address] PCP - Devoted 01/04/24 Judi Jimenez NP [address] [place] [address] Nurse Practitioner Family Medicine 10/05/22 documented as of this encounter
--- OUTSIDE RECORDS SUMMARY | 2025-03-13 10:28 | XMS_ITS | Encounter Summary ---
Author Organization [facility] Address [address] [place] [address] Care Team Providers Care Cell Tester Name Role Phone Judi Jimenez NP Unavailable [phone] Jamir Hare MD Primary Care Provider [phone] Jamir Hare MD Unavailable Reason for Visit * Reason Comments Med Change Request Encounter Details Date Type Department Care Team (Late st Contact Info) Description 09/14/2024 Refill [facility] [address] [place] [address] Judi Jimenez, RUFINO [address] [place] [address] Chronic bilateral low back pain without sciatica [...] How often do you attend chur or rastafari services? Never 12/28/2023 Do you belong to any clubs o r organizations such as caodaism groups, unions, fraternal or athletic groups, or [...] Patient Health Questionnaire-2 Score 1 04/18/2024 [facility] - [...] place to sleep or slept in a residential (including now)? No 12/28/2023 Comments Unknown Sex [...] in contact with her. Thanks, Judi Jimenez INSURANCE ACCOUNT REPRESENTATIVE documented in this encounter Plan of Treatment Upcoming Encounters Date Type Department Care Team (Late st Contact Info) Description 04/26/2025 5:30 PM EDT Office Visit [facility] [address] [place] [address] Judi Jimenez NP [address] [place] [address] 01/29/2026 5:30 PM EDT Office Visit [facility] [address] [place] [address] Judi Jimenez, RUFINO [address] [place] [address] documented as of this encounter Visit Diagnoses Diagnosis Chronic bilateral low back pain without sciatica documented in this encounter Additional Health Concerns Assessment Noted Time PHQ-9 Depression Total Score: 3 12/28/19 24 5:09 PM EDT documented as of this encounter Care Teams Cell Tester Relationship Specialty Start Date End Date Jamir Hare MD [address] [place] [address] PCP - General Family Medicine 10/30/23 Jamir Hare MD [address] [place] [address] PCP - Devoted 01/04/24 Judi Jimenez NP [address] [place] [address] Nurse Practitioner Family Medicine 10/05/22 documented as of this encounter
--- OUTSIDE RECORDS SUMMARY | 2025-03-13 10:28 | XMS_ITS | Encounter Summary ---
Author Organization [facility] Address [address] [place] [address] Care Team Providers Care Digital Court Reporter Name Role Phone Judi Jimenez NP Unavailable [phone] Jamir Hare MD Primary Care Provider [phone] Jamir Hare MD Unavailable Encounter Details Date Type Department Care Team (Late st Contact Info) Description 08/08/2024 External Result Encounter [facility] External Department Unsolicited Judi Jimenez, RUFINO [address] [place] [phone] Social History Tobacco Use Types Packs/Day Years [...] often do you attend chur ch or evangelical services? Never 12/28/2023 Do you belong to [...] Recorded Patient Health Questionnaire-2 Score 1 04/18/2024 [facility] Answer Date [...] place to sleep or slept in a intermediate (including now)? No 12/28/2023 Comments Unknown Sex [...] Visit [facility] [address] [place] [address] Judi Jimenez NP [address] [place] [phone] 01/29/2026 5:30 PM EDT Office Visit [facility] [address] [place] [address] Judi Jimenez NP [address] [place] [address] documented as of this encounter Procedures Procedure [...] Norton Jr., D.O.08/08/2024 11:45 AM Dictation Location: [place] [address] Transcribed By: [facility] 08/08/24 1145 Dictated By: Hugo Norton Jr, DO 08/08/24 1138 Signed By: <Electronically signed by Hugo Norton Jr, DO in OV> 08/08/24 1145 Narrative 08/08/2024 11:47 AM EST [facility] [address] [place] [address] Nuclear Medicine Report Signed Patient: Dionne Arreola MR#: [id number] : 1955 Acct:[id number] Age/Sex: 68 / F ADM Date: 08/08/24 Loc: Room: Type: [facility] Attending Dr: Judi Jimenez Copies to: [...] sb-mt Procedure Note Radiology, Radiologist, - 08/08/2024 [facility] [address] [place] [address] Nuclear Medicine Report Signed Patient: Dionne Arreola KMR#: [id number] : 1955cct:[id number] Age/Sex: 68 / FADM Date: 08/08/24 Loc: Room:Type: [facility] Attending Dr: Judi Jimenez Copies to: [...] Norton Jr., D.O.08/08/2024 11:45 AM Dictation Location: [place] [address] Transcribed By: [facility] 08/08/24 1145 Dictated By: Hugo Norton Jr, DO 08/08/24 1138 Signed By: <Electronically signed by Hugo Norton Jr, DO inOV> 08/08/24 1145 Judi Jimenez FUEL TRUCK DRIVER IMG CT PROCEDURES Final Result documented in this encounter Visit Diagnoses Not on filedocumented in this encounter Additional Health Concerns Assessment Noted Time PHQ-9 Depression Total Score: 3 12/28/19 24 5:09 PM EDT documented as of this encounter Care Teams Digital Court Reporter Relationship Specialty Start Date End Date Jamir Hare MD [address] [place] [address] PCP - General Family Medicine 10/30/23 Jamir Hare MD [address] [place] [address] PCP - Devoted 01/04/24 Judi Jimenez NP [address] [place] [address] Nurse Practitioner Family Medicine 10/05/22 documented as of this encounter
--- OUTSIDE RECORDS SUMMARY | 2025-03-13 10:28 | XMS_ITS | Encounter Summary ---
Author Organization [facility] Address [address] [place] [address] Care Team Providers Care High School Music Teacher Name Role Phone Judi Jimenez NP Unavailable [phone] Jamir Hare MD Primary Care Provider [phone] Jamir Hare MD Unavailable Encounter Details Date Type Department Care Team (Late st Contact Info) Description 07/25/2024 Clinisync Result Encounter [facility] External Department Unsolicited Judi Jimenez NP [address] [place] [phone] Social History Tobacco Use Types Packs/Day Years [...] often do you attend chur ch or lutheran services? Never 12/28/2023 Do you belong to any clubs o r organizations such as rastafarian groups, unions, fraternal [...] Recorded Patient Health Questionnaire-2 Score 1 04/18/2024 [facility] Questionnaire Answer [...] Visit [facility] [address] [place] [address] Judi Jimenez NP [address] [place] [address] 01/29/2026 5:30 PM EDT Office Visit [facility] [address] [place] [address] Judi Jimenez NP [address] [place] [place] [address] documented as of this encounter Procedures Procedure Name Priority Date/Time Associated Diagnosis Comments CT CHEST W CONTRAST 07/25/2024 1 :26 PM EDT documented in this encounter Results * CT CHEST W CONTRAST (07/25/2024 1:26 PM EDT) Anatomical Region Laterality Modality Other 07/25/2024 1:26 PM EDT Narrative 07/25/2024 1:29 PM EDT [address] [address] [address] Scan Report Signed Patient: DIONNE ARREOLA MR#: [id number] : 1955 Acct:[id number] Age/Sex: 68 / F ADM Date: 07/22/24 Loc: CT Attending Dr: Judi Jimenez NP Ordering Physician: Judi Jimenez NP Date of Service: 07/22/24 Procedure(s): CT chest w con Accession Number(s): [id number] cc: Judi Jimenez NP [place] [id number] Patient Name: DIONNE ARREOLA MRN: [id number] date: 1955 Sex: F Assigned Patient Location: CT Current Patient Location: Accession/Order Number: [id number] Exam Date: 07/22/2024 09:09 Report Date: 07/25/2024 [...] Signed By: 07/25/24 1329 DD/ 25 TD/TT: Machine Stoppage Frequency Checker: Procedure Note Radiology, Radiologist, MD - 07/25/2024 [place] [address] CT Scan Report Signed Patient: DIONNE ARREOLA KMR#: [id number] : 1955cct:[id number] Age/Sex: 68 / FADM Date: 07/22/24 Loc: CT Attending Dr: Judi Jimenez NP Ordering Physician: Judi Jimenez NP Date of Service: 07/22/24 Procedure(s): CT chest w con Accession Number(s): [id number] cc: Judi Jimenez NP [facility] [place] [id number] Patient Name: DIONNE ARREOLA MRN: [id number] date: 1955 Sex: F Assigned Patient Location: CT Current Patient Location: Accession/Order Number: [id number] Exam Date: 07/22/2024 09:09 Report Date: 07/25/2024 [...] M.D. Signed By:07/25/24 1329 DD/ 1326 TD/TT: Machine Stoppage Frequency Checker: us Judi Jimenez NP [facility] Final Result documented in this encounter Visit Diagnoses Not on filedocumented in this encounter Additional Health Concerns Assessment Noted Time PHQ-9 Depression Total Score: 3 12/28/19 24 5:09 PM EDT documented as of this encounter Care Teams High School Music Teacher Relationship Specialty Start Date End Date Jamir Hare MD [address] [place] [address] PCP - General Family Medicine 10/30/23 Jamir Hare MD [address] [place] [address] PCP - Devoted 01/04/24 Judi Jimenez NP [address] [place] [address] Nurse Practitioner Family Medicine 10/05/22 documented as of this encounter
--- OUTSIDE RECORDS SUMMARY | 2025-03-13 10:28 | XMS_ITS | Encounter Summary ---
Author Organization [facility] Address [address] [place] [address] Care Team Providers Care Manager Fitness Name Role Phone Judi Jimenez NP Unavailable [phone] Jamir Hare MD Primary Care Provider [phone] Jamir Hare MD Unavailable Encounter Details Date Type Department Care Team (Late st Contact Info) Description 07/18/2024 Orders Only [facility] [address] [place] [address] Judi Jimenez NP [address] [place] [address] Social History Tobacco Use Types Packs/Day Years [...] often do you attend chur ch or orthodox services? Never 12/28/2023 Do you belong to any clubs o r organizations such as advent groups, unions, fraternal [...] Recorded Patient Health Questionnaire-2 Score 1 04/18/2024 [facility] Questionnaire Answer Date Recorded [...] Visit [facility] [address] [place] [address] Judi Jimenez NP [address] [place] [address] 01/29/2026 5:30 PM EDT Office Visit [facility] [address] [place] [address] Judi Jimenez NP [address] [place] [address] documented as of this encounter Visit Diagnoses Not on filedocumented in this encounter Additional Health Concerns Assessment Noted Time PHQ-9 Depression Total Score: 3 12/28/19 5:09 PM EDT documented as of this encounter Care Teams Manager Fitness Relationship Specialty Start Date End Date Jamir Hare MD [address] [place] [address] PCP - General Family Medicine 10/30/23 Jamir Hare MD [address] [place] [address] PCP - Devoted 01/04/24 Judi Jimenez NP [address] [place] [address] Nurse Practitioner Family Medicine 10/05/22 documented as of this encounter
--- OUTSIDE RECORDS SUMMARY | 2025-03-13 10:28 | XMS_ITS | Clinical Summary ---
Author Organization [facility] Healthcare Address [address] [place] [address] Care Team Providers Care Joint Supervisor Name Role Phone Judi Jimenez NP Unavailable [phone] Jamir Hare MD Primary Care Provider [phone] Jamir Hare MD Unavailable Allergies Active Allergy [...] tablet 1 09/14/20 24 Active Continuous Glucose Chair Maker (FreeStyle Maegan 3 [place]) deviceIndications: Type 2 diabetes mellitus with insulin therapy ([facility]) 1 each Daily 1 each 09/15/20 24 025 Active Continuous Glucose Sensor (FreeStyle Maegan 3 Sensor) [facility] [place] DIRECTED to test BLOOD SUGAR DAILY; change EVERY 14 days 11/13/19 25 Active Ventolin HFA 108 (90 Base) MCG/ACT inhalerIndications :Mild intermittent asthma without complication ([facility]) Inhale 2 puffs every 6 (six) [...] atorvastatin (Lipitor) 80 MG tabletIndications: Mixed hyperlipidemia ([facility]) Take 1 tablet (80 mg) by mouth at bedtime 90 tablet 01/26/20 025 Active empagliflozin (Jardiance) 25 MGIndications:Type 2 diabetes mellitus with insulin therapy ([facility]) Take 1 tablet (25 mg) by mouth in the morning. 90 tablet 01/26/20 025 Active Additional Information Patient not taking.Reported on 01/25/2025 ergocalciferol (Vitamin D2) 1.25 MG (88674 UT) capsuleIndications :Vitamin D deficiency Take 1 capsule (1.25 mg) by mouth 1 (one) time per week 12 capsule 01/26/20 025 Active famotidine (Pepcid) 20 MG tabletIndications: Gastroesophageal reflux disease without esophagitis Take 1 tablet (20 mg) by mouth at bedtime 90 tablet 01/26/20 025 Active losartan (Cozaar) 100 MG tabletIndications: Primary hypertension ([facility]/HCC) Take 1 tablet (100 mg) by mouth Daily Take 100 mg by mouth Daily 90 tablet 1 01/26/20 025 Active pantoprazole (ProtoNix) 40 MG EC tabletIndications: Gastroesophageal reflux disease without esophagitis Take 1 tablet (40 mg) by mouth Daily 90 tablet 1 01/26/20 025 Active Tirzepatide (Mounjaro) 10 MG/0.5ML solution auto-injectorIndic ations:Type 2 diabetes mellitus with insulin therapy ([facility]) Inject 10 mg as directed every 7 (seven) days 6 mL 01/26/20 025 Active metFORMIN (Glucophage) 1000 MG tabletIndications: Type 2 diabetes mellitus with insulin therapy ([facility]) Take 1 tablet (1,000 mg) by mouth in the morning and 1 tablet (1,000 mg) in the evening. Take with meals. 180 tablet 1 01/26/20 25 025 Active insulin glargine (Basaglar KwikPen) 100 UNIT/ML penIndications:Typ e 2 diabetes mellitus with insulin therapy (CMS/HCC) 55 units daily 60 mL 1 01/26/20 25 Active Continuous Glucose Sensor (FreeStyle Maegan 3 Plus Sensor) miscIndications:Ty pe 2 diabetes mellitus with insulin therapy (CMS/HCC) 1 each Daily Replace sensor every 15 days 2 each 03/08/20 25 025 Active Budeson-Glycopyrro l-Formoterol (Breztri Aerosphere) 160-9-4.8 MCG/ACT aerosolIndications :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) Inhale 2 puffs in the morning and 2 puffs before bedtime. 32.1 g 1 01/26/20 25 025 Continuous Glucose Sensor (FreeStyle Maegan 3 Plus Sensor) misc 1 each Daily 025 Discontinu ed(Reorder ) Active Problems Problem Noted Date Diagnosed Date [...] will also give a short supply of [place], last given in 09/27 OARRS reviewed Assessment [...] Plan (07/13/2024 6:38 PM EDT): Will start bevi #1 sample given: lot [id number] exp 06/30 COVID 06/29/2024 Epigastric pain 03/07/2024 [...] Vaginal yeast infection 02/04/2024 Encounter for subsequent [facility] wellness visit (AWV) in Medicare patient 12/28/2023 [...] sensor, and #2 samples given : lot [id number] exp 02/01/25 Assessment & Plan (12/12/2024 6:24 [...] sensor, and #2 samples given : lot [id number] exp 02/01/25 Assessment & Plan (09/14/2024 6:31 [...] Rybelsus 3mg daily, to start tomorrow Lot [id number], exp 03/04/2025 Assessment & Plan (12/28/2023 5:40 [...] Encounters Date Type Department Care Team Description 03/08/2025 Refill [facility] [address] [place] [phone] Judi Jimenez NP Type 2 diabetes mellitus with insulin therapy ([facility]) (Primary Dx) 03/08/2025 Telephone [facility] [address] [place] [phone] Judi Jimenez NP 02/10/2025 Orders Only [facility] [address] [place] [phone] Kelvin Arreguin MD 02/10/2025 Clinisync Result Encounter [facility] External Department Unsolicited Provider, Generic External Data 01/25/2025 5:30 PM EDT Office Visit [facility] [address] [place] [phone] Judi Jimenez NP Encounter for subsequent annual wellness visit (AWV) in Medicare patient (Primary Dx); Type 2 diabetes mellitus with diabetic neuropathy, unspecified whether intermediate insulin use ([facility]); [place] [place] Gastro-esophageal reflux disease without esophagitis; Morbid (severe) obesity due to excess calories ([facility] [place] Type 2 diabetes mellitus with insulin therapy ([facility] Mixed hyperlipidemia [place] Mixed simple and mucopurulent chronic bronchitis ([facility] Vitamin D deficiency; Gastroesophageal reflux disease without esophagitis 01/25/2025 Bamboo flowsheet [facility] [address] [place] [address] Judi Jimenez NP 01/21/2025 Refill [facility] [address] [place] [address] Judi Jimenez NP Mild intermittent asthma without complication [place] [place] 01/14/2025 Refill [facility] [address] [place] [address] Judi Jimenez NP Mixed simple and mucopurulent chronic bronchitis ([facility] 01/09/2025 Telephone [facility] [address] [place] [address] Judi Jimenez NP 01/06/2025 Clinisync Result Encounter [facility] External Department Unsolicited Judi Jimenez NP 01/06/2025 Clinisync Result Encounter [facility] External Department Unsolicited Judi Jimenez NP 01/05/2025 Refill [facility] [address] [place] [address] Judi Jimenez NP Type 2 diabetes mellitus with insulin therapy ([facility] [place] (Primary Dx) 01/03/2025 Refill [facility] [address] [place] [address] Judi Jimenez NP Mild intermittent asthma without complication ([facility] 12/29/2024 Orders Only [facility] [address] [place] [address] Judi Jimenez NP 12/22/2024 Telephone [facility] [address] [place] [address] Judi Jimenez NP 12/12/2024 5:30 PM EDT Office Visit [facility] [address] [place] [address] Judi Jimenez, RUFINO Type 2 diabetes mellitus with insulin therapy ([facility]) (Primary Dx); Type 2 diabetes mellitus with diabetic neuropathy, unspecified ([facility]); Morbid (severe) obesity due to excess calories ([facility]); Gastro-esophageal reflux disease without esophagitis; Body mass index (BMI) 35.0-35.9, adult; Primary hypertension ([facility]) ; Vitamin D deficiency; Encounter for screening [...] How often do you attend chur or roman catholic services? Never 12/28/2023 Do you belong to any clubs o r organizations such as jewish groups, unions, fraternal or athletic groups, or [...] Recorded Patient Health Questionnaire-2 Score 1 01/25/2025 [facility] - Occupational [...] place to sleep or slept in a fpc (including now)? No 12/28/2023 Comments Unknown Sex [...] Visit [facility] [address] [place] [address] Judi Jimenez NP [address] [place] [address] 01/29/2026 5:30 PM EDT Office Visit [facility] [address] [place] [address] Judi Jimenez NP [address] [place] [address] Health Maintenance Due Date Last Done Comments [...] AM EDT MR LUMBAR SPINE WO CON 10:10 AM EDT MM TOMOSYNTHESIS SCREENING BI 01/06/2025 3:[address] CHEST W CONTRAST 01/06/2025 1 0:36 AM EDT SCANNED LABS Routine 12/29/2024 9:36 AM EDT POCT GLYCOSYLATED HEMOGLOBIN (HGB A1C) Routine 12/12/2024 5:52 PM EDT Type 2 diabetes mellitus with insulin therapy ([facility]) from Last 3 Months Results * MRI LUMBAR SPINE WO CONTRAST (02/10/2025 10:32 AM EDT) Anatomical Region Laterality Modality Radiographic Joyce ging Kelvin Arreguin MD IMG XR PROCEDURES Final Re sult * MR LUMBAR SPINE WO CON (02/10/2025 10:10 AM EDT) Anatomical Region Laterality Modality Other 02/10/2025 10:1 0 AM EDT Narrative 02/10/2025 10:13 AM EDT The [address] [address] Magnetic Resonance Report Signed Patient: DIONNE ARREOLA MR#: [id number] : 1955 Acct:[id number] Age/Sex: 69 / F ADM Date: 02/10/25 Loc: MRI Attending Dr: Kelvin Arreguin M.D. Ordering Physician: Kelvin Arreguin M.D. Date of Service: 02/10/25 Procedure(s): MR lumbar spine wo con Accession Number(s): [id number] cc: Judi Jimenez COMPUTER ARTIST; Kelvin Arreguin M.D. [address] [address] Patient Name: DIONNE ARREOLA MRN: [id number] date: 1955 Sex: F Assigned Patient Location: MRI Current Patient Location: MRI Accession/Order Number: [id number] Exam Date: 02/10/2025 10:07 Report Date: 02/10/2025 [...] Jr., D.O. 02/10/2025 10:10 AM Dictation Location: [place] [address] Electronically authenticated by: [id number] Y Date: 02/10/2025 10:10 Dictated By: Hugo Norton M.D. Signed By: 02/10/25 1013 DD/ 1010 TD/TT: Senior Software Architect: Procedure Note Radiology, Radiologist, - 02/10/2025 [place] [address] Magnetic Resonance Report Signed Patient: DIONNE ARREOLA KMR#: [id number] : 1955cct:[id number] Age/Sex: 69 / FADM Date: 02/10/25 Loc: MRI Attending Dr: Kelvin Arreguin M.D. Ordering Physician: Kelvin Arreguin M.D. Date of Service: 02/10/25 Procedure(s): MR lumbar spine wo con Accession Number(s): [id number] cc: Judi Jimenez NP; Kelvin Arreguin M.D. The [place] [id number] Patient Name: DIONNE ARREOLA MRN: [id number] date: 1955 Sex: F Assigned Patient Location: MRI Current Patient Location: MRI Accession/Order Number: [id number] Exam Date: 02/10/2025 10:07 Report Date: 02/10/2025 [...] Jr., D.O. 02/10/2025 10:10 AM Dictation Location: [place] [address] Electronically authenticated by: [id number] Y Date: 0:10 Dictated By: Hugo Norton M.D. Signed By:02/10/25 1013 DD/ 1010 TD/TT: Senior Software Architect: Generic External Data Provider [facility] Final Result * MM TOMOSYNTHESIS SCREENING BI (01/06/2025 3:01 PM EDT) Anatomical Region Laterality Modality Other 01/06/2025 3:01 PM EDT Narrative 01/06/2025 3:02 [place] [address] Mammography Report Signed Patient: DIONNE ARREOLA MR#: [id number] : 1955 Acct:[id number] Age/Sex: 69 / F ADM Date: 01/06/25 Loc: CT Attending Dr: Judi Jimenez NP Ordering Physician: Judi Jimenez NP Results: Date of Service: 01/06/25 Follow Up: Procedure(s): MM tomosynthesis screening BI Accession Number(s): [id number] cc: Judi Jimenez NP Patient Name: DIONNE ARREOLA MR#: [id number] : 1955 Exam Date: 01/06/2025 Ordering Doctor: [...] colon cancer at age 58. LOCATION: The [facility] BREAST COMPOSITION: There are scattered areas of [...] Signed By: 01/06/25 1502 DD/ 1501 TD/TT: Senior Software Architect: Procedure Note Radiology, Radiologist, - 01/06/2025 [place] [address] Mammography Report Signed Patient: DIONNE ARREOLA KMR#: [id number] : 1955cct:[id number] Age/Sex: 69 / FADM Date: 01/06/25 Loc: CT Attending Dr: Judi Jimenez NP Ordering Physician: Judi Jimenez NPResults: Date of Service: 01/06/25Follow Up: Procedure(s): MM tomosynthesis screening BI Accession Number(s): [id number] cc: Judi Jimenez NP Patient Name: DIONNE ARREOLA MR#: [id number] : 1955 Exam Date: 01/06/2025 Ordering Doctor: [...] colon cancer at age 58. LOCATION: The [facility] BREAST COMPOSITION: There are scattered areas of [...] M.D. Signed By:01/06/25 1502 DD/ 1501 TD/TT: Senior Software Architect: Judi Jimenez NP [facility] Final Result * CT CHEST W CONTRAST (01/06/2025 10:36 AM EDT) Anatomical Region Laterality Modality Other 01/06/2025 10:3 6 AM EDT Narrative 01/06/2025 10:39 [place] [address] CT Scan Report Signed Patient: DIONNE ARREOLA MR#: [id number] : 1955 Acct:[id number] Age/Sex: 69 / F ADM Date: 01/06/25 Loc: CT Attending Dr: Judi Jimenez NP Ordering Physician: Judi Jimenez NP Date of Service: 01/06/25 Procedure(s): CT chest w con Accession Number(s): [id number] cc: Judi Jimenez NP [place] [address] Patient Name: DIONNE ARREOLA MRN: [facility]:[id number] date: 1955 Sex: F Assigned Patient Location: CT Current Patient Location: CT Accession/Order Number: [id number] Exam Date: 01/06/2025 10:12 Report Date: 01/06/2025 [...] Danna Holloway M.D.01/06/2025 10:36 AM Dictation Location: [place] [address] Electronically authenticated by: [id number] Date: 01/06/2025 10:36 Dictated By: Danna Holloway M.D. Signed By: 01/06/25 1039 DD/ 1036 TD/TT: Senior Software Architect: Procedure Note Radiology, Radiologist, MD - 01/06/2025 [place] [address] CT Scan Report Signed Patient: DIONNE ARREOLA KMR#: [id number] : 1955cct:[id number] Age/Sex: 69 / FADM Date: 01/06/25 Loc: CT Attending Dr: Judi Jimenez NP Ordering Physician: Judi Jimenez NP Date of Service: 01/06/25 Procedure(s): CT chest w con Accession Number(s): [id number] cc: Judi Jimenez NP The [place] [address] Patient Name: DIONNE ARREOLA MRN: [id number] date: 1955 Sex: F Assigned Patient Location: CT Current Patient Location: CT Accession/Order Number: [id number] Exam Date: 01/06/2025 10:12 Report Date: 01/06/2025 [...] Danna Holloway M.D.01/06/2025 10:36 AM Dictation Location: [place] [address] Electronically authenticated by: [id number] Y Date: 0:36 Dictated By: Danna Holloway M.D. Signed By:01/06/25 1039 DD/ 1036 TD/TT: Senior Software Architect: us Judi Jimenez NP [facility] Final Result * SCANNED LABS (12/29/2024 9:36 AM EDT) us Judi Jimenez NP LAB CHG PERFORMABLES Final Resu lt * (ABNORMAL) POCT glycosylated hemoglobin (Hb A1C) docked device (12/12/2024 5:52 PM EDT) Hemoglobin A1C 6.9 Blood Venous blood specimen / Unknown 12/12/2024 5:52 PM EDT us Judi Jimenez NP POINT OF CARE TEST ENTER/EDIT O RDERABLES Edited Result - Final from Last 3 Months Insurance [employer] Care Teams Joint Supervisor Relationship Specialty Start Date End Date Jamir Hare MD [address] [place] [address] PCP - General Family Medicine 10/30/23 Jamir Hare MD [address] [place] [address] PCP - Devoted 01/04/24 Judi Jimenez NP [address] [place] [address] Nurse Practitioner Family Medicine 10/05/22
--- OUTSIDE RECORDS SUMMARY | 2025-03-13 10:28 | XMS_ITS | Encounter Summary ---
Author Organization [facility] Address [address] [place] [address] Care Team Providers Care Brake Lining Curer Name Role Phone Judi Jimenez NP Unavailable [phone] Jamir Hare MD Primary Care Provider [phone] Jamir Hare MD Unavailable Encounter Details Date Type Department Care Team (Late st Contact Info) Description 07/17/2024 Clinisync Result Encounter [facility] External Department Unsolicited Judi Jimenez NP [address] [place] [address] Social History Tobacco Use Types Packs/Day Years [...] any clubs o r organizations such as muslim groups, unions, fraternal or athletic groups, or [...] Recorded Patient Health Questionnaire-2 Score 1 04/18/2024 [facility]ational Stress Questionnaire Answer [...] Office Visit [facility] [address] [place] [address] Judi Jimenez NP [address] [place] [address] 01/29/2026 5:30 PM EDT Office Visit [facility] [address] [place] [address] Judi Jimenez NP [address] [place] [address] documented as of this encounter Procedures Procedure Name Priority Date/Time Associated Diagnosis Comments XR KNEE 3 VIEWS RIGHT 07/17/2024 8:57 AM EDT documented in this encounter Results * XR knee 3 views right (07/17/2024 8:57 AM EDT) Anatomical Region Laterality Modality Lower Extremities, Knee Right [facility] 07/17/2024 8:57 AM EDT Narrative 07/17/2024 9:00 [place] [address] XRay Report Signed Patient: VANI ARREOLA MR#: [id number] : 1955 Acct:[id number] Age/Sex: 68 / F ADM Date: 07/15/24 Loc: RAD Attending Dr: Judi Jimenez GRANTS SPECIALIST Ordering Physician: Judi Jimenez NP Date of Service: 07/15/24 Procedure(s): XR knee RT 3V Accession Number(s): [id number] cc: Judi Jimenez NP [place] [address] Patient Name: VANI ARREOLA MRN: [id number] date: 1955 Sex: F Assigned Patient Location: [facility] Current Patient Location: Accession/Order Number: [id number] Exam Date: 07/15/2024 16:00 Report Date: 07/17/2024 [...] M.D. Signed By: 07/17/24899 DD/ 6 TD/TT: Tow Mate: Procedure Note Radiology, Radiologist, MD - 07/17/2024 [place] [address] XRay Report Signed Patient: VANI ARREOLA KMR#: [id number] : 1955cct:[id number] Age/Sex: 68 / FADM Date: 07/15/24 Loc: RAD Attending Dr: Judi Jimenez GRANTS SPECIALIST Ordering Physician: Judi Jimenez NP Date of Service: 07/15/24 Procedure(s): XR knee RT 3V Accession Number(s): [id number] cc: Judi Jimenez NP The [place] [id number] Patient Name: VANI ARREOLA MRN: [id number] date: 1955 Sex: F Assigned Patient Location: [facility] Current Patient Location: Accession/Order Number: [id number] Exam Date: 07/15/2024 16:00 Report Date: 07/17/2024 [...] Booker M.D. Signed By:07/17/24899 DD/ 6 TD/TT: Tow Mate: us Judi Jimenez GRANTS SPECIALIST IMG XR PROCEDURES Final Result documented in this encounter Visit Diagnoses Not on filedocumented in this encounter Additional Health Concerns Assessment Noted Time PHQ-9 Depression Total Score: 3 12/28/19 24 5:09 PM EDT documented as of this encounter Care Teams Brake Lining Curer Relationship Specialty Start Date End Date Jamir Hare MD [address] [place] [address] PCP - General Family Medicine 10/30/23 Jamir Hare MD [address] [place] [address] PCP - Devoted 01/04/24 Judi Jimenez NP [address] [place] [address] Nurse Practitioner Family Medicine 10/05/22 documented as of this encounter
--- OUTSIDE RECORDS SUMMARY | 2025-03-13 10:28 | XMS_ITS | Encounter Summary ---
Author Organization [facility] Address [address] [place] [address] Care Team Providers Care Machinist Bench Name Role Phone Judi Jimenez NP Unavailable [phone] Jamir Hare MD Primary Care Provider [phone] Jamir Hare MD Unavailable Encounter Details Date Type Department Care Team (Late st Contact Info) Description 07/15/2024 Orders Only [facility] [address] [place] [address] Judi Jimenez NP [address] [place] [address] Social History Tobacco Use Types Packs/Day Years [...] often do you attend chur ch or sabianism services? Never 12/28/2023 Do you belong to any clubs o r organizations such as episcopalian groups, unions, fraternal or athletic groups, or [...] Recorded Patient Health Questionnaire-2 Score 1 04/18/2024 [facility] Answer Date [...] Office Visit [facility] [address] [place] [address] Judi Jimenez NP [address] [place] [address] 01/29/2026 5:30 PM EDT [facility] [address] [place] [address] Judi Jimenez NP [address] [place] [address] documented as of this encounter Procedures Procedure Name Priority Date/Time Associated Diagnosis Comments SCANNED LABS Routine 07/15/2024 8:25 AM EDT documented in this encounter Results * SCANNED LABS (07/15/2024 8:25 AM EDT) Judi Jimenez CHIROPRACTOR SOLE PRACTITIONER LAB CHG PERFORMABLES Final Resu lt documented in this encounter Visit Diagnoses Not on filedocumented in this encounter Additional Health Concerns Assessment Noted Time PHQ-9 Depression Total Score: 3 12/28/19 24 5:09 PM EDT documented as of this encounter Care Teams Machinist Bench Relationship Specialty Start Date End Date Jamir Hare MD [address] [place] [address] PCP - General Family Medicine 10/30/23 Jamir Hare MD [address] [place] [address] PCP - Devoted 01/04/24 Judi Jimenez NP [address] [place] [address] Nurse Practitioner Family Medicine 10/05/22 documented as of this encounter
--- OUTSIDE RECORDS SUMMARY | 2025-03-13 10:28 | XMS_ITS | Clinical Summary ---
Author Organization [facility] Address [id number] [facility] [place] [id number] Care Team Providers Care Earth Science Teacher Name Role Phone Unavailable Primary Care Provider [...]
--- OUTSIDE RECORDS SUMMARY | 2025-03-13 10:28 | XMS_ITS | Encounter Summary ---
Author Organization [facility] Address [address] [place] [address] Care Team Providers Care Elevator Worker Name Role Phone Judi Jimenez NP Unavailable [phone] Jamir Hare MD Primary Care Provider [phone] Jamir Hare MD Unavailable Encounter Details Date Type Department Care Team (Late st Contact Info) Description 07/18/2024 Orders Only [facility] [address] [place] [address] Judi Jimenez NP [address] [place] [address] Social History Tobacco Use Types Packs/Day Years [...] any clubs o r organizations such as yarsani groups, unions, fraternal or athletic groups, or [...] Recorded Patient Health Questionnaire-2 Score 1 04/18/2024 [facility] Questionnaire Answer Date [...] Office Visit [facility] [address] [place] [address] Judi Jimenez NP [address] [place] [address] 01/29/2026 5:30 PM EDT Office Visit [facility] [address] [place] [address] Judi Jimenez NP [address] [place] [address] documented as of this encounter Procedures Procedure Name Priority Date/Time Associated Diagnosis Comments XR KNEE 3 VIEWS RIGHT Routine 07/18/2024 10:06 AM EDT documented in this encounter Results * XR knee 3 views right (07/18/2024 10:06 AM EDT) Anatomical Region Laterality Modality Lower Extremities, Knee Right Radiogra phic Imaging Judi Jimenez LIME KILN OPERATOR IMG XR PROCEDURES Final Result documented in this encounter Visit Diagnoses Not on filedocumented in this encounter Additional Health Concerns Assessment Noted Time PHQ-9 Depression Total Score: 3 12/28/19 24 5:09 PM EDT documented as of this encounter Care Teams Elevator Worker Relationship Specialty Start Date End Date Jamir Hare MD [address] [place] [address] PCP - General Family Medicine 10/30/23 Jamir Hare MD [address] [place] [address] PCP - Devoted 01/04/24 Judi Jimenez NP [address] [place] [address] Nurse Practitioner Family Medicine 10/05/22 documented as of this encounter
[2025-03-13 10:42] VITALS: BP 118/75; PULSE 106; TEMP 36.4; O2SAT 95
--- OUTSIDE RECORDS SUMMARY | 2025-03-13 10:42 | XMS_ITS | CCD ---
Author Organization [facility] Care Team Providers Care Runstitching Machine Operator Name Role Phone Yash Jeffries Unavailable AICHHOLZ, MEMBER OF TECHNICAL STAFF JUDI Admitting Unavailable AICHHOLZ, MEMBER OF TECHNICAL STAFF JUDI Primary Care Unavailable AICHHOLZ, MEMBER OF TECHNICAL STAFF JUDI Consulting Unavailable AICHHOLZ, MEMBER OF TECHNICAL STAFF JUDI Attending Unavailable AICHHOLZ, MEMBER OF TECHNICAL STAFF JUDI Admitting Unavailable AICHHOLZ, MEMBER OF TECHNICAL STAFF JUDI Primary Care Unavailable AICHHOLZ, MEMBER OF TECHNICAL STAFF JUDI Consulting Unavailable AICHHOLZ, MEMBER OF TECHNICAL STAFF JUDI Attending Unavailable HOUSE, DR YANG Admitting Unavailable HOUSE, DR YANG Primary Care Unavailable HIGGINSON, DR YANG Consulting Unavailable HOUSE, DR YANG Attending Unavailable ROB, MYAHMAEsme Consulting Unavailable HOUSE, DR YANG Admitting Unavailable HOUSE, DR YANG Primary Care Unavailable HOUSE, DR YANG Attending Unavailable KARINE JIMENEZA Meena Primary Care Physician JUDI JIMENEZ Referring Unavailable JUDI JIMENEZ J Attending Unavailable KARINE JIMENEZA J Admitting Unavailable Aichholz FLOOR FINISHER, Judi Unavailable Jamir Hare MD Primary Care Provider Aictroy FLOOR FINISHER, Judi Unavailable Jamir Hare MD Unavailable Tony Judi Meena Primary Care Provider Judi Jimenez Attending Provider Tony Judi J Admitting Unavailable Tony Judi J Attending Unavailable Tony Judi J Primary Care Unavailable Rodríguez BRAY, Kelvin Harding Attending Unavailable AICHAKRINE GARCIAA Attending Unavailable AICHKARINE GARCIAA Attending Unavailable AICHBARB, JUDI Attending Unavailable JUDI JIMENEZ Attending Unavailable JUDI JIMENEZ Attending Unavailable JUAN KAUR Attending Unavailable JUDI JIMENEZ Referring Unavailable JUDI JIMENEZ Attending Unavailable Allergies Allergy Classification Reported Allergen(s) Allergy Type Date of Onset Reaction(s) Facility (5 sources) penicillAMINE Drug Allergy 2 Unknown [facility] (4 sources) sulfaSALAzine Drug Allergy Unknown [facility] Other (2 sources) Penicillins Drug allergy (disorder) 4 Anaphylaxis [facility] (1 source) Sulfonamides (Antibiotic) Drug allergy (disorder) 4 [facility] (20 sources) Penicillins Propensity to adverse reactions 3 [facility] (20 sources) Sulfonamides (Antibiotic) Propensity to adverse reactions 3 [facility] (20 sources) Cephalexin Drug Allergy 9 Unknown [facility] (2 sources) Sulfonamides (Antibiotic); Translations: [Sulfa (Sulfonamide Antibiotics)] Allergy to substance 2 Rash [facility] (1 source) penicillAMINE Drug Allergy 2 [facility] (1 source) Penicillins Drug allergy (disorder) 1 [facility] Medications Current Medications Medication Drug Class(es) Dates Sig (Normalized) Sig (Original) acetaminophen 325 mg / HYDROcodone bitartrate 5 mg oral tablet (8 sources) Opioid Agonist Start: 12-12-2024 End: 12-22-2024 take 1 tablet by mouth once HYDROcodone-aceta minophen ([place]) 5-325 MG tablet Indications: Chronic bilateral low back pain without sciatica Take 1 tablet by mouth every 12 (twelve) hours if needed for severe pain for up to 10 days 20 tablet 12/12/2024 12/22/2024 Active Start: 09-14-2024 End: 09-22-2024 take 1 tablet by mouth once HYDROcodone-acetaminophen ([place]) 5-325 MG tablet Indications: Chronic bilateral low back pain without sciatica Take 1 tablet by mouth every 12 (twelve) hours if needed for severe pain for up to 7 days 14 tablet 09/15/2024 09/22/2024 Active Start: 06-11-2018 take 1 tablet by oscar th every six hours Hydrocodone-Acetaminophen Active 1 TAB P O Every 6 hours June 10, 2018 11:00pm [id number] actuat albuterol 0.09 mg/actuat metered dose inhaler (20 sources) beta2-Adrenergic Agonist Start: 01-22-2025 End: 02-21-2025 take 2 puff(s) by inhalation every six hours for wheezing Ventolin HFA 108 (90 Base) MCG/ACT inhaler Indications: Mild intermittent asthma without complication (CMS/HCC) Inhale 2 puffs every 6 (six) hours if needed for wheezing 18 g 1 01/22/2025 Active Start: 10-17-2024 End: 02-02-2025 take 2 [...] sources) Dihydropyridine Calcium Channel Mabel Start: 03-07-2024 End: 04-25-2025 take 1 tablet [...] 2 puff(s) by inhalation in the morning Jeylojf-Wjopziyjiaz-Siktphkapq (Breztri Aerosphere) 160-9-4.8 MCG/ACT aerosol Indications: 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) Inhale 2 puffs in the morning and 2 puffs before bedtime. 32.1 g 1 01/25/2025 02/24/2025 Active Start: 01-16-2025 End: 02-15-2025 take 2 puff(s) by inhalation in the morning Wqqiuyz-Gktohrgerjt-Clstzwwhqs (Breztri Aerosphere) 160-9-4.8 MCG/ACT aerosol Indications: Mixed [...] 2 puff(s) by mouth in the morning Ieglmvy-Sfxbwaguxnb-Neugrhodqh (Breztri Aerosphere) 160-9-4.8 MCG/ACT aerosol Indications: Mixed [...] (Plavix) 75 MG tablet Indications: Primary hypertension ([facility]) Take 1 tablet (75 mg) by mouth in the morning. 90 tablet 1 09/24/2023 12/23/2023 Active Continuous Glucose Communication Specialist (FreeStyle Maegan 3 Ona) device (18 sources) Start: 09-15-2024 End: 09-15-2025 Continuous Glucose Communication Specialist (FreeStyle Maegan 3 Ona) device Indications: Type 2 diabetes mellitus with insulin therapy ([facility]) 1 each Daily 1 each 09/15/2024 09/15/2025 Active End: 09-15-2024 Continuous Glucose Communication Specialist (FreeStyle Maegan 3 Ona) device 1 each Daily 09/15/2024 Discontinued (Reorder) Continuous Glucose Sensor (FreeStyle Maegan 3 Plus Sensor) misc (2 sources) Start: 03-08-2025 End: 04-07-2025 Continuous Glucose Sensor (FreeStyle Maegan 3 Plus Sensor) misc Indications: Type 2 diabetes mellitus with insulin therapy ([facility]) 1 each Daily Replace sensor every 15 days 2 each 03/08/2025 04/07/2025 Active End: 03-08-2025 Continuous Glucose Sensor (F reeStyle Maegan 3 Plus Sensor) misc 1 each Daily 03/08/2025 Discontinued (Reorder) Continuous Glucose Sensor (FreeStyle Maegan 3 Sensor) misc (16 sources) Start: 11-13-2024 Continuous Glu cose Sensor (FreeStyle Maegan 3 Sensor) misc USE DIRECTED to test BLOOD SUGAR DAILY; change EVERY 14 days 11/13/2024 Active Start: 09-15-2024 End: 10-13-2024 Continuous Glucose Sensor (F reeStyle Maegan 3 Sensor) misc Indications: Type 2 diabetes mellitus with insulin therapy ([facility]) 1 each Daily for 28 days 2 each 12 09/15/2024 10/13/2024 Active End: 09-15-2024 Continuous Glucose Sensor (F reeStyle Maegan 3 Sensor) misc 1 each Daily 09/15/2024 Discontinued (Reorder) cyclobenzaprine hydrochloride 10 mg oral tablet (6 sources) Muscle Relaxant Start: 01-10-2025 take 1 [...] every week ergocalciferol (Vitamin D2) 1.25 MG (04664 UT) capsule Indications: Vitamin D deficiency Take 1 capsule (1.25 mg) by mouth 1 (one) time per week 12 capsule 1 01/25/2025 04/19/2025 Active Start: 09-06-2021 take 1 capsule by mo uth every week Ergocalciferol (Vitamin D2) (Vitamin D2) 1,250 mcg (50,000 unit) capsule Active 1250 MCG PO every week September 06, 2021 12:00am On Fridays take 1 capsule by mo uth every week ergocalciferol (Vitamin D-2) 1.25 MG (19588 UT) capsule Take 1.25 mg by mouth [...] sources) Angiotensin 2 Receptor Mabel Start: 09-06-2021 End: 04-25-2025 take 1 tablet [...] 08/10/2024 Active tiZANidine 4 mg oral tablet (17 sources) Central alpha-2 Adrenergic Agonist Start: 09-14-2024 [...] Chronic Other nutritional; endocrine; and metabolic disorders (17 sources) Obesity caused by energy imbalance; Translations: [Morbid (severe) obesity due to excess calories] Onset: 12-12-2024 12-12-2024 Chronic Other screening for suspected conditions (not mental disorders or infectious disease) (15 sources) Patient encounter status; Translations: [Encounter for screening mammogram for malignant neoplasm of breast] Onset: 12-12-2024 12-12-2024 Episodic Spondylosis; intervertebral disc disorders; other back problems (20 sources) Cervical spondylosis; Translations: [Other spondylosis with radiculopathy, cervical region] Onset: 08-12-2021 Resolved: 12-18-2021 Chronic Spondylosis; intervertebral disc disorders; other back problems (20 sources) Chronic low back pain; Translations: [Chronic bilateral low back pain without sciatica] Onset: 09-14-2024 09-14-2024 Episodic Unclassified (1 source) Chronic pain of right [...] [Asymptomatic menopausal state] Onset: 11-23-2023 11-23-2023 Episodic Viral infection (20 sources) Disease caused by 2019-nCoV; Translations: [COVID-19] Onset: 06-29-2024 06-29-2024 Episodic Results Test Name Value Interpretation Reference Range Facility MR [place] [address] Magnetic Resonance Report Signed Patient: DIONNE KAUFFMAN MR#: [id number] : 1955 Acct:[id number] Age/Sex: 69 / F ADM Date: 02/10/25 Loc: MRI Attending Dr: Kelvin Arreguin M.D. Ordering Physician: Kelvin Arreguin M.D. Date of Service: 02/10/25 Procedure(s): MR lumbar spine wo con Accession Number(s): [id number] cc: Judi Jimenez FLOOR FINISHER; Kelvin Arreguin M.D. [place] [id number] Patient Name: DIONNE KAUFFMAN MRN: [id number] date: 1955 Sex: F Assigned Patient Location: MRI Current Patient Location: MRI Accession/Order Number: [id number] Exam Date: 02/10/2025 10:07 Report Date: 02/10/2025 [...] Jr., D.O. 02/10/2025 10:10 AM Dictation Location: [place] [address] Electronically authenticated by: [id number] Y Date: 02/10/2025 10:10 Dictated By: Hugo Norton M.D. Signed By: 02/10/25 1013 DD/ 1010 TD/TT: Filtration Operator: [facility] Radiology, Radiologist, MD - 02/10/2025 [place] [address] Magnetic Resonance Report Signed Patient: DIONNE KAUFFMAN MR#: [id number] : 1955 Acct:[id number] Age/Sex: 69 / F ADM Date: 02/10/25 Loc: MRI Attending Dr: Kelvin Arreguin M.D. Ordering Physician: Kevlin Arreguin M.D. Date of Service: 02/10/25 Procedure(s): MR lumbar spine wo con Accession Number(s): [id number] cc: Judi Jimenez NP; Kelvin Arreguin M.D. [place] [address] Patient Name: DIONNE KAUFFMAN MRN: [id number] date: 1955 Sex: F Assigned Patient Location: MRI Current Patient Location: MRI Accession/Order Number: [id number] Exam Date: 02/10/2025 10:07 Report Date: 02/10/2025 [...] Jr., DJenniferOJennifer 02/10/2025 10:10 AM Dictation Location: [place] [address] Electronically authenticated by: [id number] Y Date: 02/10/2025 10:10 Dictated By: Hugo Norton M.D. Signed By: 02/10/25 1013 DD/ 1010 TD/TT: Filtration Operator: [facility] Radiology Study observation (narrative) [facility] [employer] LUMBAR SPINE WO CONJulio d By: Radiologist Radiology on 02-10-2025 [facility] [employer] Work Phone: CT CHEST W CONTRASTon [address] [place] [address] CT Scan Report Signed Patient: DIONNE KAUFFMAN MR#: [id number] : 1955 Acct:[id number] Age/Sex: 69 / F ADM Date: 01/06/25 Loc: CT Attending Dr: Judi Jimenez NP Ordering Physician: Judi Jimenez NP Date of Service: 01/06/25 Procedure(s): CT chest w con Accession Number(s): [id number] cc: Judi Jimenez NP [place] [address] Patient Name: DIONNE KAUFFMAN MRN: [id number] date: 1955 Sex: F Assigned Patient Location: CT Current Patient Location: CT Accession/Order Number: [id number] Exam Date: 01/06/2025 10:12 Report Date: 01/06/2025 [...] Danna Holloway M.D.01/06/2025 10:36 AM Dictation Location: [place] [address] Electronically authenticated by: [id number] Y Date: 01/06/2025 10:36 Dictated By: Danna Holloway M.D. Signed By: 01/06/25 1039 DD/ 1036 TD/TT: Filtration Operator: [facility] Radiology, Radiologist, - 01/06/[address] [address] [address] Scan Report Signed Patient: DIONNE KAUFFMAN MR#: [id number] : 1955 Acct:[id number] Age/Sex: 69 / F ADM Date: 01/06/25 Loc: CT Attending Dr: Judi Jimenez NP Ordering Physician: Judi Jimenez NP Date of Service: 01/06/25 Procedure(s): CT chest w con Accession Number(s): [id number] cc: Judi Jimenez NP The [address] [address] Patient Name: DIONNE KAUFFMAN MRN: [facility]:[id number] date: 1955 Sex: F Assigned Patient Location: CT Current Patient Location: CT Accession/Order Number: [id number] Exam Date: 01/06/2025 10:12 Report Date: 01/06/2025 [...] Danna Holloway M.D.01/06/2025 10:36 AM Dictation Location: [place] [address] Electronically authenticated by: [id number] Y Date: 01/06/2025 10:36 Dictated By: Danna Holloway M.D. Signed By: 01/06/25 1039 DD/ 1036 TD/TT: Filtration Operator: [facility] [employer] Radiology Study observation (narrative) [facility] CT CHEST W CONTRASTOrdered B y: Radiologist Radiology on 01-06-2025 [facility] [employer] Work Phone: MM TOMOSYNTHESIS SCREENING B Ion 01-06-2025 [place] [address] Mammography Report Signed Patient: DIONNE KAUFFMAN MR#: [id number] : 1955 Acct:[id number] Age/Sex: 69 / F ADM Date: 01/06/25 Loc: CT Attending Dr: Judi Jimenez NP Ordering Physician: Judi Jimenez NP Results: Date of Service: 01/06/25 Follow Up: Procedure(s): MM tomosynthesis screening BI Accession Number(s): [id number] cc: Judi Jimenez NP Patient Name: DIONNE KAUFFMAN MR#: [id number] : 1955 Exam Date: 01/06/2025 Ordering Doctor: [...] colon cancer at age 58. LOCATION: [facility] BREAST COMPOSITION: There are scattered areas [...] Signed By: 01/06/25 1502 DD/ 1501 TD/TT: Filtration Operator: [facility] Radiology, Radiologist, - 01/06/2025 [place] [address] Mammography Report Signed Patient: DIONNE KAUFFMAN MR#: [id number] : 1955 Acct:[id number] Age/Sex: 69 / F ADM Date: 01/06/25 Loc: CT Attending Dr: Judi Jimenez NP Ordering Physician: Judi Jimenez NP Results: Date of Service: 01/06/25 Follow Up: Procedure(s): MM tomosynthesis screening BI Accession Number(s): [id number] cc: Judi Jimenez NP Patient Name: DIONNE KAUFFMAN MR#: [id number] : 1955 Exam Date: 01/06/2025 Ordering Doctor: ELEANOR Jimenez MEMBER OF TECHNICAL STAFF RADIOLOGY REPORT PROCEDURE: MM TOMOSYNTHESIS SCREENING BI [...] colon cancer at age 58. LOCATION: [facility] BREAST COMPOSITION: There are scattered areas [...] Signed By: 01/06/25 1502 DD/ 1501 TD/TT: Filtration Operator: [facility] Radiology Study observation (narrative) [facility] MM TOMOSYNTHESIS SCREENING B IOrdered By: Radiologist Radiology on 01-06-2025 [facility] Work Phone: HbA1c (Bld) [Mass fraction]o n 12-12-2024 Interpretation and review of laboratory results Abnormal [facility] - Hematology and Cell countson 12-12-2024 HbA1c (Bld) [Mass fraction] 6.90 % [facility] Capillary blood glucose lux urement by glucometer (mass/volume)Ordered By: Judi Jimenez on 08-08-2024 Glucose [Mass/Vol] 135 mg/dL Normal [facility] Comment on above: Random Glucose Refer ence Range is dependent on time and content of last meal. Glucose of more than 200 mg/dL in a nonstressed, ambulatory subject supports the diagnosis of Diabetes Mellitus. Result Comment: [facility] Glucose Reference Range is dependent on time and content of last meal. Glucose of more than 200 mg/dL in a nonstressed, ambulatory subject supports the diagnosis of Diabetes Mellitus. PERFORMED BY: [address] [address] PATHOLOGIST PERFORMANCE TEST CONSULTANT YUE CONWAY M.D. Performed By: #### G LUTRUE #### Point of Care testing , GLUCOSE POCT GLUCOMETERSon 1 10-08-2023 Glucose [Mass/Vol] 135 mg/dL [facility] Comment on above: Random Glucose Refer ence Range is dependent on time and content of last meal. Glucose of more than 200 mg/dL in a nonstressed, ambulatory subject supports the diagnosis of Diabetes Mellitus. [facility] PET tumor init tx strat sb-m ton 08-08-2024 PET tumor init tx strat sb-mt [facility] [place] [address] Nuclear Medicine Report Signed Patient: Dionne Kauffman MR#: [id number] : 1955 Acct:[id number] Age/Sex: 68 / F ADM Date: 08/08/24 Loc: PE Room: Type: [facility] Attending Dr: Judi Jimenez Copies to: [...] Norton Jr., D.OJennifer08/08/2024 11:45 AM Dictation Location: [place] [address] Transcribed By: [facility] 08/08/24 1145 Dictated By: Hugo Norton Jr, DO 08/08/24 1138 Signed By: 08/08/24 1145 Normal [facility] UA (CLEAN/CATCH) [facility] OPIC IF INDICATEon 08-04-2024 BILIRUBIN URINE Negative NEGATIVE [facility] BLOOD URINE SMALL Abnormal NEGATIVE [facility] Clarity (U) CLEAR CLEAR [facility] Color (U) LT. RED YELLOW [facility] GLUCOSE URINE UA >=1000 Abnormal NEGATIVE mg/dL [facility] Interpretation and review of laboratory results Abnormal [facility] Ketones Ql (U) Negative NEGATIVE mg/dL [facility] Leukocyte esterase Test strip Ql (U) MODERATE Abnormal NEGATIVE [facility] NITRITE URINE Negative NEGATIVE [facility] pH (U) 6.5 [pH] 5.0 - 9.0 [facility] PROTEIN URINE Negative NEG/TRACE mg/dL [facility] SPECIFIC GRAVITY URINE <=1.005 Abnormal 1.005 - 1.025 [facility] URINE MICROSCOPIC INDICATED YES [facility] UROBILINOGEN URINE 0.2 EU/dL 0.2 - 1.0 EU/dL [facility] Consent for Treatmenton Consent for Treatment [id number] 09#1.00TIFF Normal [facility] EMG Electromyographyon 09-11 EMG Electromyography [id number] 241#1.00TIFF Normal [facility] Neurology Forms- [employer] Neurology Forms- Text [id number]#1.00TIFF Normal [facility] Physician Orderon 06-03-2023 Physician Order [id number]#1.00CD:127 Normal [facility] LIVER PROFILEon 01-17-2023 Albumin [Mass/Vol] 3.4 g/dL Normal 3.4-5.0 [facility] Comment on above: Performed By: #### C BC #### [facility] [address] [place] [address] Dr. Willam Novoa Albumin/Globulin [Mass ratio] 0.9 {ratio} Normal [facility] Comment on above: Performed By: #### C BC #### [facility] [address] [place] [address] Dr. Willam Novoa ALP [Catalytic activity/Vol] 116 U/L Normal 46-116 [facility] Comment on above: Performed By: #### C BC #### [facility] [address] [place] [address] Dr. Willam Novoa ALT [Catalytic activity/Vol] 35 U/L Normal 14-59 [facility] Comment on above: Performed By: #### C BC #### [facility] [address] [place] [address] [address] Willam Novoa AST [Catalytic activity/Vol] 14 U/L Critically low 15-37 [facility] Comment on above: Performed By: #### C BC #### [facility] [address] [place] [address] [address] Willam Novoa BILI, CONJUGATED 0.1 mg/dL Normal 0.0-0.2 [facility] Comment on above: Performed By: #### C BC #### [facility] [address] [place] [address] [address] Willam Novoa Bilirubin [Mass/Vol] 0.3 mg/dL Normal 0.2-1.0 [facility] Comment on above: Performed By: #### C BC #### [facility] [address] [place] [address] Dr. Willam Novoa Globulin (S) [Mass/Vol] 4.0 g/dL Normal [facility] Comment on above: Performed By: #### C BC #### [facility] [address] [place] [address] Dr. Willam Novoa Protein [Mass/Vol] 7.4 g/dL Normal 6.4-8.2 [facility] Comment on above: Performed By: #### C BC #### [facility] [address] [place] [address] [address] Willam Novoa CBC AUTO DIFFon 12-27-2022 BASO # 0.1 103/ul Normal 0.0-0.1 [facility] Comment on above: Performed By: #### C BC #### [facility] [address] [place] [address] Dr. Willam Novoa Basophils/100 WBC (Bld) 1.0 % Normal 0.2-2.0 [facility] Comment on above: Performed By: #### C BC #### [facility] [address] [place] [address] [address] Willam Novoa EO # 0.3 103/ul Normal 0.0-0.7 [facility] Comment on above: Performed By: #### C BC #### [facility] [address] [place] [address] Dr. Willam Novoa Eosinophils/100 WBC (Bld) 3.6 % Normal 0.9-7.0 [facility] Comment on above: Performed By: #### C BC #### [facility] [address] [place] [address] Dr. Willam Novoa Erythrocyte distribution width (RBC) [Ratio] 13.2 % Normal 11.0-15.0 [facility] Comment on above: Performed By: #### C BC #### [facility] [address] [place] [address] Dr. Willam Novoa Hematocrit (Bld) [Volume fraction] 45.4 % Normal 36.0-48.0 [facility] Comment on above: Performed By: #### C BC #### [facility] [address] [place] [address] Dr. Willam Novoa Hemoglobin (Bld) [Mass/Vol] 14.4 g/dL Normal 12.0-16.0 [facility] Comment on above: Performed By: #### C BC #### [facility] [address] [place] [address] Dr. Willam Novoa IG # 0.03 10e3/ul Normal 0.00-0.03 [facility] Comment on above: Performed By: #### C BC #### [facility] [address] [place] [address] Dr. Willam Novoa IG % 0.4 % Normal 0.0-0.5 [facility] Comment on above: Performed By: #### C BC #### [facility] [address] [place] [address] Dr. Willam Novoa LYMPH # 2.5 103/ul Normal 1.2-3.8 [facility] Comment on above: Performed By: #### C BC #### [facility] [address] [place] [address] Dr. Willam Novoa Lymphocytes/100 WBC (Bld) 29.9 % Normal 20.5-60.0 [facility] Comment on above: Performed By: #### C BC #### [facility] [address] [place] [address] Dr. Willam Novoa MANUAL DIFF REQ NO Normal [facility] Comment on above: Performed By: #### C BC #### [facility] [address] [place] [address] Dr. Willam Novoa MCH (RBC) [Entitic mass] 29.9 pg Normal 26.7-34.0 [facility] Comment on above: Performed By: #### C BC #### [facility] [address] [place] [address] Dr. Willam Novoa MCHC (RBC) [Mass/Vol] 31.7 g/dL Normal 29.9-35.2 [facility] Comment on above: Performed By: #### C BC #### [facility] [address] [place] [address] Dr. Willam Novoa MCV (RBC) [Entitic vol] 94.4 fL Normal 81.0-99.0 [facility] Comment on above: Performed By: #### C BC #### [facility] [address] [place] [address] Dr. Willam Novoa MONO # 0.8 103/ul Normal 0.3-0.8 [facility] Comment on above: Performed By: #### C BC #### [facility] [address] [place] [address] Dr. Willam Novoa Monocytes/100 WBC (Bld) 9.2 % Normal 1.7-12.0 [facility] Comment on above: Performed By: #### C BC #### [facility] [address] [place] [address] Dr. Willam Novoa NEUT # 4.7 103/ul Normal 1.4-6.5 [facility] Comment on above: Performed By: #### C BC #### [facility] [address] [place] [address] Dr. Willam Novoa Neutrophils/100 WBC (Bld) 55.9 % Normal 43.0-75.0 [facility] Comment on above: Performed By: #### C BC #### [facility] [address] [place] [address] Dr[address] Willam Novoa Platelet mean volume (Bld) [Entitic vol] 9.4 fL Critically low 9.5-13.5 [facility] Comment on above: Performed By: #### C BC #### [facility] [address] [address] [address] Willam Novoa PLT 311 103/ul Normal 150-450 [facility] Comment on above: Performed By: #### C BC #### [facility] [address] [place] [address] Dr. Willam Novoa RBC 4.81 106/ul Normal 4.20-5.40 [facility] Comment on above: Performed By: #### C BC #### [facility] [address] [place] [address] Dr. Willam Novoa WBC 8.4 103/ul Normal 4.0-11.0 [facility] Comment on above: Performed By: #### C BC #### [facility] [address] [place] [address] Dr. Willam Novoa FREE T4on 12-27-2022 Free T4 [Mass/Vol] 1.13 ng/dL Normal 0.76-1.46 [facility] Comment on above: Performed By: #### C BC #### [facility] [address] [place] [address] Dr. Willam Novoa GLYCOHEMOGLOBIN A1Con 2022 ADA RECOMMENDATION SEE BELOW Normal [facility] Comment on above: Result Comment: ADA RECOMMENDED LIMIT 4.0 - 6.0 ADA THERAPEUTIC TARGET < 7.0 ACTION SUGGESTED > 7.0 Performed By: #### C BC #### [facility] [address] [place] [address] Dr. Willam Novoa Glucose [Mass/Vol] 258 mg/dL Normal [facility] Comment on above: Performed By: #### C BC #### [facility] [address] [place] [address] Dr. Willam Novoa HbA1c (Bld) [Mass fraction] 10.6 % Critically high 4.5-6.2 [facility] Comment on above: Performed By: #### C BC #### [facility] [id number] Willam Novoa LIPID PROFILEon 12-27-2022 CHOL-HDL RATIO NORM SEE BELOW [facility] Comment on above: Result Comment: 3.3 - 4.4 LOW RISK 4.4 - 7.1 AVERAGE RISK 7.1 - 11.0 MODERATE RISK >11.0 HIGH RISK Performed By: #### C BC #### [facility] [address] [place], [place] [address] Dr. Willam Novoa Cholesterol [Mass/Vol] 158 mg/dL Normal <=200 [facility] Comment on above: Performed By: #### C BC #### [facility] [address] [address] [address] Willam Novoa Cholesterol in HDL [Mass/Vol] 51 mg/dL Normal 40-60 [facility] Comment on above: Performed By: #### C BC #### [facility] [address] [place], [place] [address] Dr. Willam Novoa Cholesterol in LDL [Mass/Vol] 81.8 mg/dL Normal [facility] Comment on above: Performed By: #### C BC #### [facility] [address] [place], [place] [address] Dr. Willam Novoa Cholesterol.total/Xiomy sterol in HDL [Mass ratio] 3.1 {ratio} Normal [facility] Comment on above: Performed By: #### C BC #### [facility] [id number] Willam Novoa HDL NORMAL > or = 60 mg/dl - LOW CARDIOVASCULAR RISK <40 mg/dl - HIGH CARDIOVASCULAR RISK Normal [facility] Comment on above: Performed By: #### C BC #### [facility] [address] [place], [place] [address] Dr. Willam Novoa LDL CALC NORMAL SEE BELOW Normal [facility] Comment on above: Result Comment: <100 mg/dl OPTIMAL 100 - 129 mg/dl NEAR OR ABOVE OPTIMAL 130 - 159 mg/dl BORDERLINE HIGH 160 - 189 mg/dl HIGH >190 mg/dl VERY HIGH Performed By: #### C BC #### [facility] [address] [place] [address] Dr. Willam Novoa Triglyceride [Mass/Vol] 126 mg/dL Normal <=150 [facility] Comment on above: Performed By: #### C BC #### [facility] [address] [address] [address] Willam Novoa VLDL CALC 25.2 mg/dL Normal [facility] Comment on above: Performed By: #### C BC #### [facility] [address] [place] [address] Dr. Willam Novoa MICROALBUMIN, RAND URon 12-04 mALB 1.3 mg/L Normal <=30.0 [facility] Comment on above: Performed By: #### M ALBR #### [facility] [address] [place] [address] Dr. Willam Novoa PROF 14(COMP METB)on 023 Albumin [Mass/Vol] 3.9 g/dL Normal 3.4-5.0 [facility] Comment on above: Performed By: #### C MP, LIPID, TSH #### [facility] [address] [place] [address] Dr. Willam Novoa Albumin/Globulin [Mass ratio] 1.0 {ratio} Normal [facility] Comment on above: Performed By: #### C MP, LIPID, TSH #### [facility] [address] [place] [address] Dr. Willam Novoa ALP [Catalytic activity/Vol] 161 U/L Critically high 46-116 [facility] Comment on above: Performed By: #### C MP, LIPID, TSH #### [facility] [address] [place] [address] Dr. Willam Novoa ALT [Catalytic activity/Vol] 29 U/L Normal 14-59 [facility] Comment on above: Performed By: #### C MP, LIPID, TSH #### [facility] [address] [place] [address] Dr. Willam Novoa Anion gap [Moles/Vol] 10.7 mmol/L Normal [facility] Comment on above: Performed By: #### C MP, LIPID, TSH #### [facility] [address] [place] [address] Dr. Willam Novoa AST [Catalytic activity/Vol] 10 U/L Critically low 15-37 [facility] Comment on above: Performed By: #### C MP, LIPID, TSH #### [facility] [address] [place] [address] Dr. Willam Novoa Bilirubin [Mass/Vol] 0.3 mg/dL Normal 0.2-1.0 [facility] Comment on above: Performed By: #### C MP, LIPID, TSH #### [facility] [address] [place] [address] Dr. Willam Novoa Calcium [Mass/Vol] 9.4 mg/dL Normal 8.5-10.1 [facility] Comment on above: Performed By: #### C MP, LIPID, TSH #### [facility] [address] [place] [address] Dr. Willam Novoa Chloride [Moles/Vol] 103 mmol/L Normal 98-107 [facility] Comment on above: Performed By: #### C MP, LIPID, TSH #### [facility] [address] [place] [address] Dr. Willam Novoa CO2 [Moles/Vol] 28.3 mmol/L Normal 21.0-32.0 [facility] Comment on above: Performed By: #### C MP, LIPID, TSH #### [facility] [address] [place] [address] Dr. Willam Novoa Creatinine [Mass/Vol] 0.72 mg/dL Normal 0.55-1.02 [facility] Comment on above: Performed By: #### C MP, LIPID, TSH #### [facility] [address] [place] [address] Dr. Willam Novoa EGFR-AF ESTONIAN >60 Normal >=60 [facility] Comment on above: Performed By: #### C MP, LIPID, TSH #### [facility] [address] [place], [place] [id number] Dr. Willam Novoa EGFR-NON AF ESTONIAN >60 Normal >=60 [facility] Comment on above: Performed By: #### C MP, LIPID, TSH #### [facility] [address] [address] [address] Willam Novoa Globulin (S) [Mass/Vol] 3.8 g/dL Normal [facility] Comment on above: Performed By: #### C MP, LIPID, TSH #### [facility] [address] [address] [address] Willam Novoa Glucose [Mass/Vol] 287 mg/dL Critically high 74-106 [facility] Comment on above: Performed By: #### C MP, LIPID, TSH #### [facility] [address] [place] [address] Dr. Willam Novoa Potassium [Moles/Vol] 4.0 mmol/L Normal 3.5-5.1 [facility] Comment on above: Performed By: #### C MP, LIPID, TSH #### [facility] [address] [place] [address] Dr. Willam Novoa Protein [Mass/Vol] 7.7 g/dL Normal 6.4-8.2 [facility] Comment on above: Performed By: #### C MP, LIPID, TSH #### [facility] [address] [place] [address] Dr. Willam Novoa Sodium [Moles/Vol] 138 mmol/L Normal 136-145 [facility] Comment on above: Performed By: #### C MP, LIPID, TSH #### [facility] [address] [place] [address] Dr. Willam Novoa Urea nitrogen [Mass/Vol] 13.0 mg/dL Normal 7.0-18.0 [facility] Comment on above: Performed By: #### C MP, LIPID, TSH #### [facility] [address] [place] [address] Dr. Willam Novoa Urea nitrogen/Creatinine [Mass ratio] 18.1 mg/mg Normal [facility] Comment on above: Performed By: #### C MP, LIPID, TSH #### [facility] [address] [address] [address] Willam Novoa TSHon 12-27-2022 TSH 1.361 uIU/mL Normal 0.358-3.740 [facility] Comment on above: Performed By: #### C MP, LIPID, TSH #### [facility] [address] [place] [address] Dr. Willam Novoa UA RANDOM W/MICROSCOPICon BACTERIA NONE SEEN Normal NONE SEEN [facility] Comment on above: Performed By: #### U AMIC #### [facility] [address] [place] [address] Dr. Willam Novoa Bilirubin Ql (U) Negative Normal NEGATIVE [facility] Comment on above: Performed By: #### U AMIC #### [facility] [address] [place] [address] Dr. Willam Novoa CAST NONE SEEN Normal NONE SEEN [facility] Comment on above: Performed By: #### U AMIC #### [facility] [address] [place] [address] Dr. Willam Novoa Clarity (U) CLEAR Normal CLEAR [facility] Comment on above: Performed By: #### U AMIC #### [facility] [address] [place] [address] Dr. Willam Novoa Color (U) LT. YELLOW Normal YELLOW [facility] Comment on above: Performed By: #### U AMIC #### [facility] [address] [place] [address] Dr. Willam Novoa Crystals LM Nom (Urine sed) NONE SEEN Normal NONE SEEN [facility] Comment on above: Performed By: #### U AMIC #### [facility] [address] [place] [address] Dr. Willam Novoa Epithelial cells LM Ql (Urine sed) RARE Normal NONE SEEN /RARE [facility] Comment on above: Performed By: #### U AMIC #### [facility] [address] [place] [address] Dr. Willam Novoa Glucose Ql (U) >1000 Abnormal NEGATIVE [facility] Comment on above: Performed By: #### U AMIC #### [facility] [address] [address] [address] Willam Novoa Hemoglobin Ql (U) Negative Normal NEGATIVE [facility] Comment on above: Performed By: #### U AMIC #### [facility] [address] [address] [address] Willam Novoa Ketones Ql (U) Negative Normal NEGATIVE [facility] Comment on above: Performed By: #### U AMIC #### [facility] [address] [address] [address] Willam Novoa LEUKOCYTES Negative Normal NEGATIVE [facility] Comment on above: Performed By: #### U AMIC #### [facility] [address] [address] [address] Willam Novoa MUCOUS NONE SEEN Normal NONE SEEN [facility] Comment on above: Performed By: #### U AMIC #### [facility] [address] [address] [address] Willam Novoa Nitrite Ql (U) Negative Normal NEGATIVE [facility] Comment on above: Performed By: #### U AMIC #### [facility] [address] [address] [address] Willam Novoa pH (U) 6.0 [pH] Normal 5-9 [facility] Comment on above: Performed By: #### U AMIC #### [facility] [address] [address] [address] Willam Novoa RBC NONE SEEN Abnormal 0-2 [facility] Comment on above: Performed By: #### U AMIC #### [facility] [address] [address] [address] Willam Novoa SPEC GRAVITY <=1.005 Abnormal 1.005-<=1.025 [facility] Comment on above: Performed By: #### U AMIC #### [facility] [address] [place] [address] Dr. Willam Novoa UA PROTEIN Negative Normal NEGATIVE/ TRACE [facility] Comment on above: Performed By: #### U AMIC #### [facility] [address] [place] [address] Dr. Willam Novoa Urobilinogen Qn (U) 0.2 {Kalpesh'U}/dL Normal 0.2 - 1. 0 [facility] Comment on above: Performed By: #### U AMIC #### [facility] [address] [place] [address] Dr. Willam Novoa WBC NONE SEEN Normal NONE SEEN [facility] Comment on above: Performed By: #### U AMIC #### [facility] [address] [place] [address] Dr. Willam Novoa MICROALBUMIN URINEon 022 Albumin, Urine 5.9 ug/mL Normal Not Estab. [facility] Comment on above: Performed By: #### M ALBLC #### [facility] [address] [place] [address] Dr. Willam Novoa T4 LABCORPon 05-25-2022 T4 [Mass/Vol] 8.3 ug/dL Normal 4.5-12.0 [facility] Comment on above: Performed By: #### C BC #### [facility] [address] [place] [address] Dr. Willam Novoa CBC AUTO DIFFon 05-24-2022 BASO # 0.1 103/ul Normal 0.0-0.1 [facility] Comment on above: Performed By: #### C BC #### [facility] [address] [place] [address] Dr. Willam Novoa Basophils/100 WBC (Bld) 0.9 % Normal 0.2-2.0 [facility] Comment on above: Performed By: #### C BC #### [facility] [address] [place] [address] Dr. Willam Novoa EO # 0.3 103/ul Normal 0.0-0.7 [facility] Comment on above: Performed By: #### C BC #### [facility] [address] [place] [address] Dr. Willam Novoa Eosinophils/100 WBC (Bld) 3.5 % Normal 0.9-7.0 [facility] Comment on above: Performed By: #### C BC #### [facility] [address] [place] [address] Dr. Willam Novoa Erythrocyte distribution width (RBC) [Ratio] 13.2 % Normal 11.0-15.0 [facility] Comment on above: Performed By: #### C BC #### [facility] [address] [place] [address] Dr. Willam Novoa Hematocrit (Bld) [Volume fraction] 45.7 % Normal 36.0-48.0 [facility] Comment on above: Performed By: #### C BC #### [facility] [address] [place] [address] Dr. Willam Novoa Hemoglobin (Bld) [Mass/Vol] 14.3 g/dL Normal 12.0-16.0 [facility] Comment on above: Performed By: #### C BC #### [facility] [address] [place] [address] Dr. Willam Novoa IG # 0.03 10e3/ul Normal 0.00-0.03 [facility] Comment on above: Performed By: #### C BC #### [facility] [address] [place] [address] Dr. Willam Novoa IG % 0.3 % Normal 0.0-0.5 [facility] Comment on above: Performed By: #### C BC #### [facility] [address] [place] [address] Dr. Willam Novoa LYMPH # 3.5 103/ul Normal 1.2-3.8 [facility] Comment on above: Performed By: #### C BC #### [facility] [address] [place] [address] Dr. Willam Novoa Lymphocytes/100 WBC (Bld) 38.7 % Normal 20.5-60.0 [facility] Comment on above: Performed By: #### C BC #### [facility] [address] [place] [address] Dr. Willam Novoa MANUAL DIFF REQ NO Normal [facility] Comment on above: Performed By: #### C BC #### [facility] [address] [place] [address] Dr. Willam Novoa MCH (RBC) [Entitic mass] 29.8 pg Normal 26.7-34.0 [facility] Comment on above: Performed By: #### C BC #### [facility] [address] [place] [address] Dr. Willam Novoa MCHC (RBC) [Mass/Vol] 31.3 g/dL Normal 29.9-35.2 [facility] Comment on above: Performed By: #### C BC #### [facility] [address] [place] [address] Dr. Willam Novoa MCV (RBC) [Entitic vol] 95.2 fL Normal 81.0-99.0 [facility] Comment on above: Performed By: #### C BC #### [facility] [address] [place] [address] Dr. Willam Novoa MONO # 0.8 103/ul Normal 0.3-0.8 [facility] Comment on above: Performed By: #### C BC #### [facility] [address] [place] [address] Dr. Willam Novoa Monocytes/100 WBC (Bld) 9.3 % Normal 1.7-12.0 [facility] Comment on above: Performed By: #### C BC #### [facility] [address] [place] [address] Dr. Willam Novoa NEUT # 4.2 103/ul Normal 1.4-6.5 [facility] Comment on above: Performed By: #### C BC #### [facility] [address] [place] [address] Dr. Willam Novoa Neutrophils/100 WBC (Bld) 47.3 % Normal 43.0-75.0 [facility] Comment on above: Performed By: #### C BC #### [facility] [address] [place] [address] Dr. Willam Novoa Platelet mean volume (Bld) [Entitic vol] 9.3 fL Critically low 9.5-13.5 [facility] Comment on above: Performed By: #### C BC #### [facility] [address] [address] [address] Willam Novoa PLT 295 103/ul Normal 150-450 [facility] Comment on above: Performed By: #### C BC #### [facility] [address] [address] [address] Willam Novoa RBC 4.80 106/ul Normal 4.20-5.40 [facility] Comment on above: Performed By: #### C BC #### [facility] [address] [address] [address] Willam Novoa WBC 8.9 103/ul Normal 4.0-11.0 [facility] Comment on above: Performed By: #### C BC #### [facility] [address] [place] [address] Dr. Willam Novoa GLYCOHEMOGLOBIN A1Con 2021 ADA RECOMMENDATION SEE BELOW Normal [facility] Comment on above: Result Comment: ADA RECOMMENDED LIMIT 4.0 - 6.0 ADA THERAPEUTIC TARGET < 7.0 ACTION SUGGESTED > 7.0 Performed By: #### A 1C #### [facility] [address] [place] [address] Dr. Willam Novoa Glucose [Mass/Vol] 200 mg/dL Normal [facility] Comment on above: Performed By: #### A 1C #### [facility] [address] [place] [address] Dr. Willam Novoa HbA1c (Bld) [Mass fraction] 8.6 % Critically high 4.5-6.2 [facility] Comment on above: Performed By: #### A 1C #### [facility] [address] [place] [address] Dr. Willam Novoa PROF 14(COMP METB)on 022 Albumin [Mass/Vol] 4.1 g/dL Normal 3.4-5.0 [facility] Comment on above: Performed By: #### T SH, CMP #### [facility] [address] [place] [address] Dr. Willam Novoa Albumin/Globulin [Mass ratio] 1.2 {ratio} Normal [facility] Comment on above: Performed By: #### T SH, CMP #### [facility] [address] [address] [address] Willam Novoa ALP [Catalytic activity/Vol] 121 U/L Critically high 46-116 [facility] Comment on above: Performed By: #### T SH, CMP #### [facility] [address] [address] [address] Willam Novoa ALT [Catalytic activity/Vol] 31 U/L Normal 14-59 [facility] Comment on above: Performed By: #### T SH, CMP #### [facility] [address] [address] [address] Willma Novoa Anion gap [Moles/Vol] 15.9 mmol/L Normal [facility] Comment on above: Performed By: #### T SH, CMP #### [facility] [address] [address] [address] Willam Novoa AST [Catalytic activity/Vol] 13 U/L Critically low 15-37 [facility] Comment on above: Performed By: #### T SH, CMP #### [facility] [address] [address] [address] Willam Novoa Bilirubin [Mass/Vol] 0.4 mg/dL Normal 0.2-1.0 [facility] Comment on above: Performed By: #### T SH, CMP #### [facility] [address] [address] [address] Willam Novoa Calcium [Mass/Vol] 9.3 mg/dL Normal 8.5-10.1 [facility] Comment on above: Performed By: #### T SH, CMP #### [facility] [address] [address] [address] Willam Novoa Chloride [Moles/Vol] 103 mmol/L Normal 98-107 [facility] Comment on above: Performed By: #### T SH, CMP #### [facility] [address] [address] [address] Willam Novoa CO2 [Moles/Vol] 27.1 mmol/L Normal 21.0-32.0 [facility] Comment on above: Performed By: #### T SH, CMP #### [facility] [address] [address] [address] Willam Novoa Creatinine [Mass/Vol] 0.74 mg/dL Normal 0.55-1.02 [facility] Comment on above: Performed By: #### T SH, CMP #### [facility] [address] [address] [address] Willam Novoa EGFR-AF ESTONIAN >60 Normal >=60 [facility] Comment on above: Performed By: #### T SH, CMP #### [facility] [address] [address] [address] Willam Novoa EGFR-NON AF ESTONIAN >60 Normal >=60 [facility] Comment on above: Performed By: #### T SH, CMP #### [facility] [address] [place] [address] Dr. Willam Novoa Globulin (S) [Mass/Vol] 3.3 g/dL Normal [facility] Comment on above: Performed By: #### T SH, CMP #### [facility] [address] [address] [address] Willam Novoa Glucose [Mass/Vol] 194 mg/dL Critically high 74-106 [facility] Comment on above: Performed By: #### T SH, CMP #### [facility] [address] [place] [address] Dr. Willam Novoa Potassium [Moles/Vol] 4.0 mmol/L Normal 3.5-5.1 [facility] Comment on above: Performed By: #### T SH, CMP #### [facility] [address] [address] [address] Willam Novoa Protein [Mass/Vol] 7.4 g/dL Normal 6.4-8.2 [facility] Comment on above: Performed By: #### T SH, CMP #### [facility] [address] [address] [address] Willam Novoa Sodium [Moles/Vol] 142 mmol/L Normal 136-145 [facility] Comment on above: Performed By: #### T SH, CMP #### [facility] [address] [place], [place] [address] Dr. Willam Novoa Urea nitrogen [Mass/Vol] 19.0 mg/dL Critically high 7.0-18.0 [facility] Comment on above: Performed By: #### T SH, CMP #### [facility] [address] [place], [place] [address] Dr. Willam Novoa Urea nitrogen/Creatinine [Mass ratio] 25.7 mg/mg Normal [facility] Comment on above: Performed By: #### T SH, CMP #### [facility] [address] [address] [address] Willam Novoa TSHon 05-24-2022 TSH 1.350 uIU/mL Normal 0.358-3.740 [facility] Comment on above: Performed By: #### T SH, CMP #### [facility] [address] [address] [address] Willam Novoa Vital Signs Date Time Vital Sign Value Performing Clinician Facility 01-25-2025 17:40-0400 Body mass index (BMI) [Ratio] 36.28 kg/m2 Judi Jimenez [employer]LOOR FINISHER Work Phone: [facility] 01-25-2025 17:40-0400 Body temperature 98.71 [degF] Judi Jimenez FLOOR FINISHER Work Phone: [facility] 01-25-2025 17:40-0400 Body weight 92.9 kg Judi Jimenez FLOOR FINISHER Work Phone: [facility] 01-25-2025 17:40-0400 Diastolic blood pressure 82 mm[Hg] Judi Jimenez FLOOR FINISHER Work Phone: [facility] 01-25-2025 17:40-0400 Heart rate 98 /min Judi Jimenez FLOOR FINISHER Work Phone: [facility] 01-25-2025 17:40-0400 Respiratory rate 19 /min Judi Jimenez FLOOR FINISHER Work Phone: [facility] 01-25-2025 17:40-0400 SaO2% (BldA) [Mass fraction] 98 % Judi Bhavaniholz FLOOR FINISHER Work Phone: [facility] 01-25-2025 17:40-0400 Systolic blood pressure 132 mm[Hg] Judi Nilahholz FLOOR FINISHER Work Phone: [facility] 12-12-2024 17:36-0400 Body height 160 cm Judi Nilahholz FLOOR FINISHER Work Phone: [facility] 12-12-2024 17:36-0400 Body mass index (BMI) [Ratio] 36.99 kg/m2 Judi Aichholz FLOOR FINISHER Work Phone: [facility] 12-12-2024 17:36-0400 Body temperature 97.81 [degF] Judi Nilahholz FLOOR FINISHER Work Phone: [facility] 12-12-2024 17:36-0400 Body weight 94.71 kg Judi Nilahholz FLOOR FINISHER Work Phone: [facility] 12-12-2024 17:36-0400 Diastolic blood pressure 88 mm[Hg] Judi Aichholz FLOOR FINISHER Work Phone: [facility] 12-12-2024 17:36-0400 Heart rate 108 /min Judi Nilahholz FLOOR FINISHER Work Phone: [facility] 12-12-2024 17:36-0400 Respiratory rate 19 /min Judi Aichholz FLOOR FINISHER Work Phone: [facility] 12-12-2024 17:36-0400 SaO2% (BldA) [Mass fraction] 92 % Judi Aichholz FLOOR FINISHER Work Phone: [facility] 12-12-2024 17:36-0400 Systolic blood pressure 142 mm[Hg] Judi Aichholz FLOOR FINISHER Work Phone: [facility] 09-14-2024 17:31-0500 Body height 160 cm Judi Aichholz FLOOR FINISHER Work Phone: [facility] 09-14-2024 17:31-0500 Body mass index (BMI) [Ratio] 35.89 kg/m2 Judirico Beckhamholz FLOOR FINISHER Work Phone: [facility] 09-14-2024 17:31-0500 Body temperature 98.49 [degF] Judi Bhavaniholz FLOOR FINISHER Work Phone: [facility] 09-14-2024 17:31-0500 Body weight 91.9 kg Judi Bhavaniholz FLOOR FINISHER Work Phone: [facility] 09-14-2024 17:31-0500 Diastolic blood pressure 84 mm[Hg] Judi Aichholz FLOOR FINISHER Work Phone: [facility] 09-14-2024 17:31-0500 Heart rate 97 /min Judi Nilahholz FLOOR FINISHER Work Phone: [facility] 09-14-2024 17:31-0500 Respiratory rate 18 /min Judi Bhavaniholz FLOOR FINISHER Work Phone: [facility] 09-14-2024 17:31-0500 SaO2% (BldA) [Mass fraction] 95 % Judi Nilahholz FLOOR FINISHER Work Phone: [facility] 09-14-2024 17:31-0500 Systolic blood pressure 132 mm[Hg] Judi Bhavaniholz FLOOR FINISHER Work Phone: [facility] 07-13-2024 17:43-0400 Body height 160 cm Judi Nilahholz FLOOR FINISHER Work Phone: [facility] 07-13-2024 17:43-0400 Body mass index (BMI) [Ratio] 36 kg/m2 Judi Aichholz FLOOR FINISHER Work Phone: [facility] 07-13-2024 17:43-0400 Body temperature 97.5 [degF] Judi Bhavaniholz FLOOR FINISHER Work Phone: [facility] 07-13-2024 17:43-0400 Body weight 92.17 kg Judi Nilahholz FLOOR FINISHER Work Phone: [facility] [employer] 07-13-2024 17:43-0400 Diastolic blood pressure 82 mm[Hg] Judi Jimenez FLOOR FINISHER Work Phone: [facility] 07-13-2024 17:43-0400 Heart rate 97 /min Judi Jimenez FLOOR FINISHER Work Phone: [facility] 07-13-2024 17:43-0400 Respiratory rate 18 /min Judi Jimenez FLOOR FINISHER Work Phone: [facility] 07-13-2024 17:43-0400 SaO2% (BldA) [Mass fraction] 98 % Judi Jimenez FLOOR FINISHER Work Phone: [facility] 07-13-2024 17:43-0400 Systolic blood pressure 124 mm[Hg] Judi Jimenez FLOOR FINISHER Work Phone: [facility] 12-18-2021 11:00-0400 Body height 165.1 cm Yash Jeffries Other [employer] Other 12-18-2021 11:00-0400 Body mass index (BMI) [Ratio] 36.27 kg/m2 Yash Jeffries Other [employer] Other 12-18-2021 11:00-0400 Body weight 98.88 kg Yash Jeffries Other [employer] Other 08-12-2021 14:00-0500 Body height 165.1 cm Yash Jeffries Other [employer] Other 08-12-2021 14:00-0500 Body mass index (BMI) [Ratio] 36.27 kg/m2 Yash Jeffries Other [employer] Other 08-12-2021 14:00-0500 Body weight 98.88 kg Yash Jeffries Other [employer] Other 08-12-2021 14:00-0500 Diastolic blood pressure 79 mm[Hg] Yash Jeffries Other [employer] Other 08-12-2021 14:00-0500 Systolic blood pressure 130 mm[Hg] Yash Jeffries Other [employer] Other Encounters Encounter Date Encounter Type Care Provider Facility Start: 03-08-2025 End: 03-08-2025 Refill Judi Jimenez FLOOR FINISHER Work Phone: [facility] Comment on above: Type 2 diabetes nicanor itus with insulin therapy ([facility]) (Primary Dx) Start: 02-10-2025 End: 02-10-2025 Clinisync Result Encounter Generic External Data Provider [facility] External Department Unsolicited Start: 02-10-2025 End: 02-10-2025 Clinisync Result Encounter Generic External Data Provider [facility] External Department Unsolicited Start: 01-25-2025 End: 01-25-2025 Patient encounter procedure Judi Jimenez FLOOR FINISHER Work Phone: [facility] Comment on above: Encounter for subseq uent annual wellness visit (AWV) in Medicare patient (Primary Dx); Type 2 diabetes mellitus with diabetic neuropathy, unspecified whether mcfp insulin use ([facility]); Primary hypertension ([facility]); Gastro-esophageal reflux disease without esophagitis; Morbid (severe) obesity due to excess calories ([facility]); Type 2 diabetes mellitus with insulin therapy ([facility]); Mixed hyperlipidemia ([facility]); Mixed simple and mucopurulent chronic bronchitis ([facility]); Vitamin D deficiency; Gastroesophageal reflux disease without esophagitis Start: 01-25-2025 End: 01-25-2025 ambulatory JUDI JIMENEZ Not Available Start: 01-25-2025 End: 01-25-2025 Bamboo flowsheet Judi Jimenez FLOOR FINISHER Work Phone: [facility] Start: 01-25-2025 End: 01-25-2025 Bamboo flowsheet Judi Jimenez FLOOR FINISHER Work Phone: [facility] Start: 01-21-2025 End: 01-22-2025 Refill Judi Tony FLOOR FINISHER Work Phone: [facility] Comment on above: 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) Start: 01-14-2025 End: 01-16-2025 Refill Judi Tony FLOOR FINISHER Work Phone: [facility] Comment on above: Mixed simple and muc opurulent chronic bronchitis (CMS/HCC) Start: 01-09-2025 End: 01-09-2025 ambulatory Kelvin Arreguin MD Facility:[facility] Start: 01-06-2025 End: 01-06-2025 Clinisync Result Encounter Judi Tony FLOOR FINISHER Work Phone: [facility] External Department Unsolicited Start: 01-06-2025 End: 01-06-2025 Clinisync Result Encounter Judi Tony FLOOR FINISHER Work Phone: [facility] External Department Unsolicited Start: 01-05-2025 End: 01-05-2025 Refill Judi Tony FLOOR FINISHER Work Phone: [facility] Comment on above: Type 2 diabetes nicanor itus with insulin therapy (CMS/HCC) (Primary Dx) Start: 01-03-2025 End: 01-03-2025 Refill Judi Tony FLOOR FINISHER Work Phone: [facility] Comment on above: 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) Start: 12-12-2024 End: 12-12-2024 Office outpatient visit 25 minutes Judi Jimenez FLOOR FINISHER Work Phone: [facility] Comment on [...] Start: 10-31-2024 End: 10-31-2024 Refill Judi Aichholz FLOOR FINISHER Work Phone: [facility] Comment on above: Type 2 diabetes nicanor itus with insulin therapy (CMS/HCC) (Primary Dx) Start: 10-17-2024 End: 10-17-2024 Refill Judi Aichholz FLOOR FINISHER Work Phone: [facility] Comment on above: 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) Start: 09-15-2024 End: 09-15-2024 Refill Ujdi Aichholz FLOOR FINISHER Work Phone: [facility] Comment on above: Type 2 diabetes nicanor itus with insulin therapy (CMS/HCC) (Primary Dx) Chronic bilateral lo w back pain without sciatica; Type 2 diabetes mellitus with insulin therapy (CMS/HCC) Start: 09-14-2024 End: 09-14-2024 Office outpatient visit 25 minutes Judi Aichholz FLOOR FINISHER Work Phone: [facility] Comment on above: Type 2 diabetes nicanor itus with insulin therapy (CMS/HCC) (Primary Dx); Type 2 diabetes mellitus with diabetic neuropathy, unspecified whether terminologist insulin use (CMS/HCC); Primary hypertension (CMS/HCC); Gastroesophageal reflux disease without esophagitis; Obesity (BMI 30-39.9); Mixed hyperlipidemia (CMS/HCC); Cerebrovascular accident (CVA), unspecified mechanism (CMS/HCC); Type 2 diabetes mellitus treated without insulin (CMS/HCC); Chronic bilateral low back pain without sciatica Start: 09-14-2024 End: 09-14-2024 ambulatory JUID AICHHOLZ Not Available Start: 09-14-2024 End: 09-14-2024 Refill Judi Aichholz FLOOR FINISHER Work Phone: [facility] Comment on above: Type 2 diabetes nicanor itus with insulin therapy ([facility]) Start: 08-23-2024 End: 08-23-2024 Telephone encounter Judi Tony FLOOR FINISHER Work Phone: [facility] Start: 08-22-2024 End: 08-24-2024 Telephone encounter Juan Kaur FLOOR FINISHER Work Phone: [facility] Comment on above: order clarification Start: 08-15-2024 End: 08-15-2024 Bamboo flowsheet Juan Kaur FLOOR FINISHER Work Phone: [facility] Start: 08-15-2024 End: 08-15-2024 Bamboo flowsheet Juan Kaur FLOOR FINISHER Work Phone: [facility] Start: 08-15-2024 End: 08-15-2024 Office outpatient new 30 minutes Juan Kaur FLOOR FINISHER Work Phone: [facility] Comment on above: Right knee pain, uns pecified chronicity (Primary Dx); Chronic pain of right knee; Status post right knee replacement Start: 08-15-2024 End: 08-15-2024 ambulatory JUAN KAUR Not Available Start: 08-08-2024 End: 08-08-2024 External Result Encounter Judi Tony FLOOR FINISHER Work Phone: [facility] Department Unsolicited Start: 08-08-2024 End: 08-08-2024 External Result Encounter Judi Tony FLOOR FINISHER Work Phone: [facility] External Department Unsolicited Start: 08-08-2024 End: 08-08-2024 ambulatory Judi Jimenez Work Phone: [facility] Work Phone: Start: 08-08-2024 End: 08-08-2024 Patient encounter procedure Judi Jimenez Work Phone: [facility] Work Phone: Start: 08-04-2024 End: 08-04-2024 Clinisync Result Encounter Judi Dotsontroy FLOOR FINISHER Work Phone: [facility] External Department Unsolicited Start: 08-04-2024 End: 08-04-2024 Clinisync Result Encounter Judirico Beckhambarb FLOOR FINISHER Work Phone: [facility] External Department Unsolicited Start: 08-04-2024 End: 08-04-2024 Refill Judi Norbertz FLOOR FINISHER Work Phone: [facility] Comment on above: UTI symptoms (Primar y Dx) Start: 08-02-2024 End: 08-02-2024 Orders Only Judi Tony FLOOR FINISHER Work Phone: [facility] Comment on above: Urinary frequency (P rimary Dx) Start: 07-25-2024 End: 07-25-2024 Orders Only Ujdi Tony FLOOR FINISHER Work Phone: [facility] Comment on above: Hemoptysis (Primary Dx); Lung nodule seen on imaging study Start: 07-20-2024 End: 07-20-2024 Refill Judi Tony FLOOR FINISHER Work Phone: [facility] Comment on above: 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) Start: 07-18-2024 End: 07-18-2024 Refill Judi Tony FLOOR FINISHER Work Phone: [facility] Comment on above: Chronic pain of righ t knee (Primary Dx); Leukocytosis, unspecified type Chronic pain of righ t knee (Primary Dx) Start: 07-13-2024 End: 07-13-2024 Office outpatient visit 25 minutes Judi Jimenez FLOOR FINISHER Work Phone: [facility] Comment on above: Type 2 diabetes nicanor itus with insulin therapy (CMS/HCC) (Primary Dx); Primary hypertension (CMS/HCC); Hemoptysis; Chronic pain of right knee; 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); Obesity (BMI 30-39.9) Start: 07-13-2024 End: 07-13-2024 ambulatory JUDI AICHHOLZ Not Available Start: 07-13-2024 End: 07-13-2024 Bamboo flowsheet Judi Aichholz FLOOR FINISHER Work Phone: [facility] Start: 07-13-2024 End: 07-13-2024 Bamboo flowsheet Judi Aichholz FLOOR FINISHER Work Phone: [facility] Start: 06-29-2024 End: 06-29-2024 Refill Judi Aichholz FLOOR FINISHER Work Phone: [facility] Comment on above: COVID (Primary Dx) Start: 06-20-2024 End: 06-20-2024 Refill Judi Aichholz FLOOR FINISHER Work Phone: [facility] Comment on above: Mixed hyperlipidemia ([facility]) Start: 06-07-2024 End: 06-07-2024 Refill Judi Aichholz FLOOR FINISHER Work Phone: [facility] Comment on above: Type 2 diabetes nicanor itus with insulin therapy ([facility]) (Primary Dx) Start: 04-18-2024 End: 04-18-2024 ambulatory JUDI AICHHOLZ Not Available Start: 03-07-2024 End: 03-07-2024 ambulatory JUDI AICHHOLZ Not Available Start: 12-28-2023 Patient encounter procedure Judi Aichholz FLOOR FINISHER Work Phone: [facility] Start: 11-13-2023 Refill Judi Aichholz FLOOR FINISHER Work Phone: [facility] Comment on above: Gastroesophageal ref lux disease without esophagitis (Primary Dx) Start: 09-11-2023 End: 09-12-2023 ambulatory JUDI J AICHHOLZ Facility:[facility] Start: 09-11-2023 End: 09-11-2023 Patient encounter procedure JUDI J AICHHOLZ [facility] Start: 06-03-2023 End: 07-18-2023 Pre-admission assessment JUDI JIMENEZ [facility] Start: 01-17-2023 End: 01-18-2023 ambulatory ELEANOR JIMENEZ Facility:[facility] Start: 12-27-2022 End: 12-28-2022 ambulatory [employer] JUDI JIMENEZ Facility:[facility] Start: 05-27-2022 Encounter for genera l adult medical examination without abnormal findings DR CELIA CRUZ [facility] Start: 05-24-2022 End: 05-25-[address] CELIA CRUZ Facility:[facility] Start: 05-24-2022 End: 05-25-2022 Encounter for general adult medical examination without abnormal findings DR CELIA CRUZ Facility:[facility] Start: 04-20-[address] CELIA CRUZ Facili ty:[facility] Start: 12-18-2021 End: 12-18-2021 ambulatory Yash Jeffries Other [employer] Other Start: 12-18-2021 Postop follow up vis it related to original px Yash Jeffries [facility] [place] Start: 10-02-2021 End: 10-02-2021 ambulatory Yash Jeffries Other [employer] Other Start: 10-02-2021 Telephone encounter Yash Parker [facility] Start: 09-23-2021 End: 09-23-2021 ambulatory Yash Jeffries Other [employer] Other Start: 09-23-2021 Telephone encounter Yash Parker [facility] Start: 08-12-2021 End: 08-12-2021 ambulatory Yash Jeffries Other [employer] Other Start: 08-12-2021 Office outpatient vi sit 25 minutes Yash Jeffries [facility] Procedures Date Procedure Procedure Detail Performing Clinician Start: 02-10-2025 MR LUMBAR SPINE WO CON Generic External Data Provider Start: 01-06-2025 MM TOMOSYNTHESIS SCR EENING BI Judi Jimenez FLOOR FINISHER Work Phone: Start: 01-06-2025 CT CHEST W CONTRAST Karine gómez Tony FLOOR FINISHER Work Phone: Start: 01-06-2025 Mammography Judi beckett FLOOR FINISHER Work Phone: Start: 12-12-2024 Hemoglobin glycosylated a1c Judi Jimenez FLOOR FINISHER Work Phone: Start: 08-08-2024 GLUCOSE POCT GLUCOMETERS Judi Jimenez FLOOR FINISHER Work Phone: Start: 08-08-2024 Positron emission tomography with computed tomography Judi Jimenez Work Phone: Start: 08-04-2024 TBH UA (CLEAN/CATCH) MICROSCOPIC IF INDICATE Judi Jimenez FLOOR FINISHER Work Phone: Start: 12-02-2023 Mammography Judi beckett FLOOR FINISHER Work Phone: Plan of Treatment Date Care Activity Detail Author Start: 03-23-2026 Screening for malign ant neoplasm of colon [facility] Healthcare Start: 01-29-2026 End: 01-29-2026 Patient encounter procedure 01/29/2026 5:30 PM EDT Office Visit [facility] [address] [place] [address] Judi Jimenez NP [address] [place] [address] [facility] Start: 01-25-2026 Medicare Annual Wellness (AWV) Medicare Annual Wellness (AWV) [facility] Start: 01-06-2026 Screening for malign ant neoplasm of breast Mammogram [facility] Start: 04-26-2025 End: 04-26-2025 Patient encounter procedure 04/26/2025 5:30 PM EDT Office Visit [facility] [address] [place] [address] Judi Jimenez NP [address] [place] [phone] [facility] Start: 04-16-2025 Glaucoma screening Diabetes: R etinopathy Screening [facility] Start: 03-14-2025 Hemoglobin A1c measurement Diabetes: Hemoglobin A1C [facility] Start: 01-25-2025 End: 01-25-2025 Patient encounter procedure [facility] Comment on above: Type 2 diabetes nicanor itus with diabetic neuropathy, unspecified whether mcfp insulin use ([facility]) (Primary Dx); Primary hypertension ([facility]); Gastro-esophageal reflux disease without esophagitis; Morbid (severe) obesity due to excess calories ([facility]); Type 2 diabetes mellitus with insulin therapy ([facility]); Encounter for subsequent annual wellness visit (AWV) in Medicare patient Start: 01-11-2025 End: 01-11-2025 Patient encounter procedure 01/11/2025 5:30 PM EDT Office Visit [facility] [address] [place] [address] Judi Jimenez NP [address] [place] [id number] [facility] Start: 12-27-2024 Medicare Annual Wellness (AWV) Medicare Annual Wellness (AWV) [facility] Start: 12-12-2024 End: 12-12-2024 Patient encounter procedure 12/12/2024 5:30 PM EDT Office Visit [facility] [address] [place] [address] Judi Jimenez NP [address] [place] [phone] [facility] Start: 12-12-2024 End: 12-12-2025 25-hydroxyvitamin D3 [Mass/volume] in Serum or Plasma Vitamin D 25 hydroxy Lab Routine Vitamin D deficiency Expected: 12/12/2024 (Approximate), Expires: 12/12/2025 [facility] Comment on above: Expected: 12/12/2024 (Approximate), Expires: 12/12/2025 Start: 12-12-2024 End: 12-12-2025 CBC W Auto Differential panel - Blood CBC and differential Lab Routine Gastro-esophageal reflux disease without esophagitis Expected: 12/12/2024 (Approximate), Expires: 12/12/2025 [facility] Work Phone: Comment on above: Expected: 12/12/2024 (Approximate), Expires: 12/12/2025 Start: 12-12-2024 End: 12-12-2025 Comprehensive metabolic 2000 panel - Serum or Plasma Comprehensive metabolic panel Lab Routine Type 2 diabetes mellitus with diabetic neuropathy, unspecified (CMS/HCC) Primary hypertension (CMS/HCC) Type 2 diabetes mellitus with insulin therapy (CMS/HCC) Vitamin D deficiency Expected: 12/12/2024 (Approximate), Expires: 12/12/2025 [facility] Comment on above: Expected: 12/12/2024 (Approximate), Expires: 12/12/2025 Start: 12-12-2024 End: 12-12-2025 CT Chest W contrast IV CT chest w IV contrast Imaging Routine Lung nodule seen on imaging study Expected: 12/12/2024 (Approximate), Expires: 12/12/2025 [facility] Comment on above: Expected: 12/12/2024 (Approximate), Expires: 12/12/2025 Start: 12-12-2024 End: 12-12-2025 Lipid 1996 panel - Serum or Plasma Lipid panel Lab Routine Type 2 diabetes mellitus with insulin therapy (CMS/HCC) Expected: 12/12/2024 (Approximate), Expires: 12/12/2025 [facility] Comment on above: Expected: 12/12/2024 (Approximate), Expires: 12/12/2025 Start: 12-12-2024 End: 02-11-2026 MG Breast - bilateral Screening Bilateral screening mammogram Imaging Routine Encounter for screening mammogram for malignant neoplasm of breast Expected: 12/12/2024 (Approximate), Expires: 02/11/2026 [facility] Comment on above: Expected: 12/12/2024 (Approximate), Expires: 02/11/2026 Start: 12-12-2024 End: 12-12-2025 Microalbumin/Creatinine panel in random Urine Microalbumin / creatinine, urine ratio Lab Routine Primary hypertension (CMS/HCC) Type 2 diabetes mellitus with insulin therapy (CMS/HCC) Expected: 12/12/2024 (Approximate), Expires: 12/12/2025 [facility] Comment on above: Expected: 12/12/2024 (Approximate), Expires: 12/12/2025 Start: 12-12-2024 End: 12-12-2025 Urinalysis complete panel - Urine Urinalysis with reflex microscopic (clean catch) Lab Routine Primary hypertension (CMS/HCC) Type 2 diabetes mellitus with insulin therapy (CMS/HCC) Expected: 12/12/2024 (Approximate), Expires: 12/12/2025 [facility] Comment on above: Expected: 12/12/2024 (Approximate), Expires: 12/12/2025 Start: 12-02-2024 Screening for malign ant neoplasm of breast Mammogram [facility] Start: 12-02-2024 Urine screening for protein Diabetes: Urine Protein Screening [facility] Start: 10-14-2024 Hemoglobin A1c measurement Diabetes: Hemoglobin A1C [facility] Start: 09-14-2024 End: 09-14-2024 Patient encounter procedure 09/14/2024 5:30 PM EST Office Visit [facility] [address] [place] [address] Judi Jimenez NP [address] [place] [address] [facility] Start: 08-15-2024 End: 08-15-2025 NM Bone Limited Views NM Bone 3PH SPECT Imaging Routine Status post right knee replacement Expected: 08/15/2024 (Approximate), Expires: 08/15/2025 [facility] Work Phone: Comment on above: Expected: 08/15/2024 (Approximate), Expires: 08/15/2025 Start: 08-15-2024 End: 08-15-2024 Patient encounter procedure 08/15/2024 1:45 PM EST Office Visit [facility] [address] [place] [phone] Juan Kaur NP [address] [place] [address] [facility] Start: 08-10-2024 End: 08-10-2024 Patient encounter procedure 08/10/2024 5:30 PM EST Office Visit [facility] [address] [place] [address] Judi Jimenez NP [address] [place] [address] [facility] Start: 08-02-2024 End: 08-02-2025 Bacteria identified in Urine by Culture Urine culture (clean catch) Microbiology Routine Urinary frequency Expected: 08/02/2024 (Approximate), Expires: 08/02/2025 [facility] Comment on above: Expected: 08/02/2024 (Approximate), Expires: 08/02/2025 Start: 08-02-2024 End: 08-02-2025 Urinalysis complete panel - Urine Urinalysis with reflex microscopic (clean catch) Lab Routine Urinary frequency Expected: 08/02/2024 (Approximate), Expires: 08/02/2025 [facility] Healthcare Work Phone: Comment on above: Expected: 08/02/2024 (Approximate), Expires: 08/02/2025 Start: 07-25-2024 End: 07-25-2025 PET+CT Bone from skull base to mid-thigh W [id number] IV PET/CT skull base to mid thigh Imaging Routine Hemoptysis Lung nodule seen on imaging study Expected: 07/25/2024 (Approximate), Expires: 07/25/2025 [facility] Work Phone: Comment on above: Expected: 07/25/2024 (Approximate), Expires: 07/25/2025 Start: 07-13-2024 End: 07-13-2024 Patient encounter procedure [facility] Comment on above: Type 2 diabetes nicanor itus with insulin therapy (CMS/HCC) (Primary Dx); Primary hypertension (CMS/HCC) Start: 07-13-2024 End: 07-13-2025 Basic metabolic 1998 panel - Serum or Plasma Basic metabolic panel Lab Routine Type 2 diabetes mellitus with insulin therapy (CMS/HCC) Expected: 07/13/2024 (Approximate), Expires: 07/13/2025 [facility] Comment on above: Expected: 07/13/2024 (Approximate), Expires: 07/13/2025 Start: 07-13-2024 End: 07-13-2025 C reactive protein [Mass/volume] in Serum or Plasma C-reactive protein Lab Routine Chronic pain of right knee Expected: 07/13/2024 (Approximate), Expires: 07/13/2025 [facility] Comment on above: Expected: 07/13/2024 (Approximate), Expires: 07/13/2025 Start: 07-13-2024 End: 07-13-2025 CBC W Auto Differential panel - Blood CBC and differential Lab Routine Chronic pain of right knee Expected: 07/13/2024 (Approximate), Expires: 07/13/2025 [facility] Comment on above: Expected: 07/13/2024 (Approximate), Expires: 07/13/2025 Start: 07-13-2024 End: 07-13-2025 CT Chest W contrast IV CT chest w IV contrast Imaging Routine Hemoptysis Expected: 07/13/2024 (Approximate), Expires: 07/13/2025 [facility] [facility] Comment on above: Expected: 07/13/2024 (Approximate), Expires: 07/13/2025 Start: 07-13-2024 End: 07-13-2025 Erythrocyte sedimentation rate Sedimentation rate, automated Lab Routine Chronic pain of right knee Expected: 07/13/2024 (Approximate), Expires: 07/13/2025 [facility] Comment on above: Expected: 07/13/2024 (Approximate), Expires: 07/13/2025 Start: 07-13-2024 End: 07-13-2025 Hemoglobin A1c/Hemoglobin.total in Blood Hemoglobin A1c Lab Routine Type 2 diabetes mellitus with insulin therapy ([facility]) Expected: 07/13/2024 (Approximate), Expires: 07/13/2025 [facility] Work Phone: Comment on above: Expected: 07/13/2024 (Approximate), Expires: 07/13/2025 Start: 07-13-2024 End: 07-13-2025 XR Knee - right 3 Views XR knee 3 views right Imaging Routine Chronic pain of right knee Expected: 07/13/2024, Expires: 07/13/2025 [facility] Comment on above: Expected: 07/13/2024 , Expires: 07/13/2025 Start: 06-10-2024 Hemoglobin A1c measurement Diabetes: Hemoglobin A1C [facility] Start: 11-23-2023 End: 11-23-2023 Patient encounter procedure 11/23/2023 6:00 PM EST Office Visit [facility] [address] [place] [address] Judi Jimenez, FLOOR FINISHER [address] [place] [address] [facility] Start: 06-05-2023 Influenza vaccination Influenza Vacc ine (#1) [facility] Start: 1996 Screening for malign ant neoplasm of breast Mammogram [facility] Start: 12-27-1975 Urine screening for protein Diabetes: Urine Protein Screening [facility] Start: 1966 Glaucoma screening Diabetes: R etinopathy Screening [facility] Start: 1962 Pneumococcal Vaccine : 65+ Years (1 - PCV) Pneumococcal Vaccine: 65+ Years (1 - PCV) [facility] Start: 1956 Hemoglobin A1c measurement Diabetes: Hemoglobin A1C [facility] Start: 1956 Medicare Annual Wellness (AWV) Medicare Annual Wellness (AWV) [facility] Start: 1955 Screening for malign ant neoplasm of colon [facility] Immunizations Immunization Date Immunization Notes Care Provider Fa cility 12-11-2024 ABRYSVO - Respirator y syncytial virus (RSV), vaccine, bivalent, protein subunit RSV prefusion F, diluent reconstituted, 0.5 mL, PF Judi Aichholz FLOOR FINISHER Work Phone: [facility] 08-08-2024 Influenza, injectable, Madin [place] Canine Kidney, preservative free, quadrivalent Juan Apling FLOOR FINISHER Work Phone: [facility] 06-28-2021 Pfizer Purple Cap SARS-CoV-2 Vaccination Judi Aichholz FLOOR FINISHER Work Phone: [facility] 01-13-2021 Pfizer Purple Cap SARS-CoV-2 Vaccination Judi Aichholz FLOOR FINISHER Work Phone: [facility] 01-03-2021 Pfizer Purple Cap SARS-CoV-2 Vaccination Judi Aichholz FLOOR FINISHER Work Phone: [facility] 12-13-2020 Pfizer Purple Cap SARS-CoV-2 Vaccination Judi Aichholz FLOOR FINISHER Work Phone: [facility] 07-09-2020 influenza, high dose seasonal, preservative-free Judi Aichholz FLOOR FINISHER Work Phone: [facility] 07-09-2020 influenza virus vaccine, unspecified formulation Judi Aichholz FLOOR FINISHER Work Phone: [facility] 07-08-2020 influenza, injectable, quadrivalent, preservative free Judi Aichholz FLOOR FINISHER Work Phone: [facility] NEGATED: Highlighted row has not occurred!09-20-2021 influenza, injectable, quadrivalent, preservative free Judi Aichholz Work Phone: [facility] Payers Date Payer Category Payer Self-pay [id number] 2024 Medicare [id number] 2024 Medicare (Managed Care) [facility] [id number] 2024 Unknown [employer] [id number] 2024-Present [address] [place] [id number] 2024 Unknown [id number] 2017 Medicare [id number] 1959 Medicare [id number] 1959 Self-pay [id number] 1956 Unknown [id number] 2.16.840.1.930479.3.579.2. 593 1956 Unknown [id number] 2.16.840.1.798785.3.579.2. 593 1956 Unknown [id number] 2.16.840.1.197063.3.579.2. 593 1956 Unknown [id number] 2.16.840.1.154077.3.579.2. 593 1956 Unknown [id number] 2.16.840.1.496743.3.579.2. 727 1956 Unknown [id number] 2.16.840.1.703085.3.579.2. 196 1956 Unknown [id number] 2.16.840.1.247825.3.579.2. 1259 1956 Unknown [id number] 2.16.840.1.641113.3.579.2. 1259 1956 Unknown [id number] 2.16.840.1.330128.3.579.2. 1258 1956 Unknown [id number] 2.16.840.1.479440.3.579.2. 9 1956 Unknown [id number] 2.16.840.1.705703.3.579.2. 1258 1956 Unknown [id number] 2.16.840.1.011013.3.579.2. 1258 1956 Unknown [id number] 2.16.840.1.737573.3.579.2. 1259 Medicaid Medicaid [id number] Medicare Medicare [id number] Unknown [id number] [id number]. 531 Social History Date Type Detail Facility Unknown if ever smoked [facility] Other Start: 10-30-2023 End: 12-28-2023 Sex Assigned At [facility] Tobacco smoking status No Smokin g Status Entered [facility] Start: 10-05-1990 End: 01-12-2025 Tobacco smoking status OHIS Smokes tobacco daily [facility] Start: 10-05-1990 History of tobacco use Cigarette Smoker [facility] Start: 10-30-2023 End: 12-28-2023 Cigarettes smoked current (pack per day) - Reported 0.5 [facility] Start: 1955 Sex Assigned At Not on file [facility] Start: 07-13-2024 End: 01-25-2025 Alcoholic beverage intake Ex-drinker (finding) [facility] Within the last year , have you been afraid of your partner or ex-partner? No [facility] Do you belong to any clubs or organizations such as congregation groups, unions, fraternal [...] smoking status NHIS Never smoked tobacco (finding) [facility] Start: 1955 Sex Assigned At Female [facility] Medical Equipment Procedure Code Equipment Code Equipment Origin al Text Equipment Identifier Dates 1 each by Other route Daily Start: 12-02-2023 Spinal fixation plate, non-bioabsorbable ()[id number] FDA Start: 09-19-2021 Bone-screw inter nal spinal fixation system, non-sterile ()[id number] FDA Start: 09-19-2021 Bone-screw inter nal spinal fixation system, non-sterile ()[id number] FDA Start: 09-19-2021 Bone-screw inter nal spinal fixation system, non-sterile ()[id number] FDA Start: 09-19-2021 Intervertebral-b ashely internal spinal fixation system ()[id number] FDA Start: 09-19-2021 Functional Status Date Assessment Result Facility 01-25-2025 Patient Health Quest ionnaire 2 item (PHQ-2) [Reported] [facility] Clinical Notes 08-12-2021 to 01-25-2025 Judi Jimenez NP - 01/25/2025 5:30 PM Areli Jimenez NP - 01/25/2025 7:44 AM Areli Jimenez NP - 01/25/2025 7:44 AM Areli Jimenez NP - 01/25/2025 7:43 AM EDTPatient Instructions Note Date & Type Note Facility 01-25-2025 History of Presen t illness Narrative Images from the original note were not included. Dionne Kauffman is a 69 y.o. female presents [...] time. An JOSE ROBERTO inhibitor/angiotensin II receptor mabel is being taken. 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 Hypertension This is a [...] compliance problems. There is no history of CAD/AZ, heart failure or PVD. SUBJECTIVE: MEDICATIONS: Current Outpatient Medications Medication Instructions amLODIPine (NORVASC) 10 mg, Oral, Daily atorvastatin (LIPITOR) 80 mg, Oral, Nightly Xehpcdp-Hmbhsqpadut-Qzvaflysny (Breztri Aerosphere) 160-9-4.8 MCG/ACT aerosol 2 puffs, Inhalation, 2 times daily Continuous Glucose Communication Specialist (FreeStyle Maegan 3 Ona) device 1 each, Does not apply, Daily Continuous Glucose Sensor (FreeStyle Maegan 3 Sensor) [facility] [place] DIRECTED to test BLOOD SUGAR DAILY; [...] 11/23/2023 Diabetic neuropathy, type II diabetes mellitus ([facility]) 11/23/2023 Elevated alkaline phosphatase level 11/23/2023 Gastroesophageal reflux disease without esophagitis 10/06/2023 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[facility]) Menopause 11/23/2023 Mixed hyperlipidemia ([facility]) 09/17/2023 Neoplasm of uncertain behavior 11/23/2023 Nontoxic goiter ([facility]) Osteoarthritis of right knee 11/23/2023 Primary hypertension ([facility]) 10/01/2023 Right upper extremity numbness Stroke ([facility]) 11/23/2023 Type 2 diabetes mellitus with insulin therapy ([facility]) 11/23/2023 Visual impairment 11/23/2023 Vitamin D deficiency Past Surgical History: Procedure Laterality Date CERVICAL FUSION 1999 HYSTERECTOMY KNEE ARTHROPLASTY Right 2017 [place] KNEE SURGERY Right 2019 knee Infection in operative knee, treated at [facility] family history includes Breast cancer in her [...] List Items Addressed This Visit Mixed hyperlipidemia ([facility]) Relevant Medications atorvastatin (Lipitor) 80 MG tablet Primary hypertension ([facility]) Please check blood pressure daily and record [...] 2 diabetes mellitus with diabetic neuropathy, unspecified ([facility]) - Primary No current meds for this Gabapentin gave bad nightmares Does not want to trial lyrica Type 2 diabetes mellitus with insulin therapy ([facility]) Check blood sugars daily, notify if <70 [...] sensor, and #2 samples given : lot [id number] exp 02/01/25 Relevant Medications empagliflozin (Jardiance) 25 MG Tirzepatide (Mounjaro) 10 MG/0.5ML solution auto-injector metFORMIN (Glucophage) 1000 MG tablet insulin glargine (Basaglar KwikPen) 100 UNIT/ML pen Vitamin D deficiency Relevant Medications ergocalciferol (Vitamin D2) 1.25 MG (17796 UT) capsule Encounter for subsequent annual wellness visit (AWV) in Medicare patient Reviewed Ht/Wt/BMI Recommend eye exam yearly Recommend dental exams twice a year Exercises is recommended most days of the week (appropriate as chronic conditions allow) Follow up yearly and prn 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) Relevant Medications Wwtetrk-Bhumswvupmk-Rxfcxgyrro (Breztri Aerosphere) 160-9-4.8 MCG/ACT aerosol Morbid (severe) obesity due to excess calories ([facility]) Discussed with patient their BMI (actual, verses [...] 2 diabetes mellitus with insulin therapy (CMS/HCC) Check blood sugars daily, notify if <70 [...] sensor, and #2 samples given : lot [id number] exp 02/01/25 Associated Problem(s): Morbid (severe) obesity [...] to trial lyrica documented in this encounter [facility] 01-25-2025 Instructions Judi Jimenez NP - 01/25/2025 5:30 PM EDT No med changes documented in this encounter [facility] 12-12-2024 History of Presen t illness Narrative Associated Problem(s): Chronic bilateral low back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
[2025-03-13 10:49] LABS: Glucometer 108 mg/dL (74-106)
[2025-03-13 11:17] VITALS: BP 155/72; PULSE 101; O2SAT 95
[2025-03-13 11:19] VITALS: BP 134/63
[2025-03-13] MEDS: IOHEXOL 240 MG/ML - 10 ML VIAL 12 MG INJ (11:20)
[2025-03-13] MEDS: 0.9 % SODIUM CHLORIDE 10 ML SYRINGE - SALINE FLUSH INJ (11:20)
[2025-03-13] MEDS: BUPIVACAINE HCL 0.25% PF 25 MG/10 ML VIAL INJ (11:20)
[2025-03-13] MEDS: DEXAMETHASONE SOD PHOS 10 MG/ML VIAL INJ (11:20)
[2025-03-13] MEDS: LIDOCAINE HCL 2% 400 MG/20 ML MDV INJ (11:21)
--- NOTE | 2025-03-13 11:23 | P.ON_ITS ---
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 Informed consent was obtained and placed on the chart.? Patient was brought to the medical procedure unit and placed in the prone position where a timeout was completed verifying the correct patient, procedure site, position, and planned special equipment using sterile aseptic technique.? Under direct fluoroscopic visualization a 25-gauge Quincke tipped spinal needle was advanced to the designated neural foramen where contrast dye was injected to show adequate spread.? The needle was inserted at level right L3-4. There was no evidence of vascular or adverse uptake.? Epidural spread was appreciated.? The above- mentioned injectate was then placed in a 1.5 mL aliquot preceded by negative aspiration.? The needle was removed. The needle was inserted and the procedure repeated at level right L4-5.? The surgery site was covered.? Patient was taken to the postprocedural recovery area and monitored for an appropriate length of time before found suitable for discharge in the accompaniment of a responsible adult. Anesthesia: Local Surgeon: Kelvin Arreguin Pathology: none sent Condition: stable Disposition: no change
== END 2025-03-13 11:27 | disposition home or self-care (01) ==
LOC: SURGOUT 10:25
PROVIDERS: PCP Nurse Practitioner; Visit Provider Anesthesiology
DX: M54.50 Low back pain, unspecified (principal); M48.062 Spinal stenosis, lumbar region with neurogenic claudication; E11.8 Type 2 diabetes mellitus with unspecified complications; Z79.85 Long-term (current) use of injectable non-insulin antidiabetic drugs; Z79.84 Long term (current) use of oral hypoglycemic drugs
CPT/HCPCS: 36415; 64483; 64484; 82948; J0665; J1100; Q9966

== ENCOUNTER 2025-04-05 14:32 | Outpatient (OUT) | payer OTHER, SELFPAY ==
--- NOTE | 2025-04-05 15:06 | PM.CN ---
Consult Note: HPI Data of Consult Patient: known to practice within the last 3 years Consult date: 04/05/25 Requesting Physician: Ashley Benoit NP Primary Care Provider: Judi Jimenez NP Consult Narrative Reason for consult: low back, right leg pain Narrative: 69yof who presents for evaluation. longstanding low back pain with radiation into right lower extremity. has engaged in a series of provider directed home exercises >6 weeks, without lasting benefit. recent lumbar mri consitent with multilevel degenerative changes and stenosis. pt had side effects with gabapentin, could not tolerate severe vivid dreams. pregabalin not covered by insurance. is not finding benefit to tramadol 50mg BID PRN, denies side effects. currently utilizing tylenol prn. could not tolerate flexeril or baclofen due to drowsiness. cannot take nsaids, on plavix. cc:: CC: Ashley Benoit NP Review of Systems ROS Status of ROS 10 or more systems reviewed and unremarkable except as noted in history and below Meds Home Medications and Allergies Home Medications �Medication �Instructions �Recorded �Confirmed �Type albuterol sulfate 90 mcg/actuation 2 inh inhalation Q6H PRN shortness 01/10/25 03/13/25 History aerosol inhaler (Ventolin HFA) of breath or wheezing amlodipine 10 mg tablet 10 mg PO DAILY 01/10/25 03/13/25 History atorvastatin 80 mg tablet 80 mg PO DAILY 01/10/25 03/13/25 History budesonide 160 mcg-glycopyr 9 2 inh inhalation BID 01/10/25 03/13/25 History mcg-formot 4.8 mcg/actuation HFA inhaler (Breztri Aerosphere) clopidogrel 75 mg tablet (Plavix) 75 mg PO DAILY 01/10/25 03/13/25 History cyclobenzaprine 10 mg tablet 10 mg PO TID PRN muscle spasm 01/10/25 03/13/25 History empagliflozin 25 mg tablet 25 mg PO DAILY 01/10/25 03/13/25 History (Jardiance) ergocalciferol (vitamin D2) 1,250 50,000 unit PO QWEEK 01/10/25 03/13/25 History mcg (50,000 unit) capsule (Vitamin D2) famotidine 20 mg tablet 20 mg PO DAILY 01/10/25 03/13/25 History insulin glargine 100 unit/mL 55 unit subcut DAILY 01/10/25 03/13/25 History subcutaneous solution (Lantus U-100 Insulin) losartan 100 mg tablet 100 mg PO DAILY 01/10/25 03/13/25 History metformin 1,000 mg tablet 1,000 mg PO BID 01/10/25 03/13/25 History pantoprazole 40 mg tablet,delayed 40 mg PO DAILY 01/10/25 03/13/25 History release tirzepatide 10 mg/0.5 mL 10 mg subcut QWEEK 01/10/25 03/13/25 History subcutaneous pen injector (Mounjaro) tramadol 50 mg tablet 50 mg PO BID PRN pain #60 tabs 03/13/25 Rx Allergies Allergy/AdvReac Type Severity Reaction Status Date / Time Penicillins Allergy Severe cardiac Verified 03/13/25 10:44 Sulfa (Sulfonamide Allergy Severe Unknown Verified 03/13/25 10:44 Antibiotics) Exam Narrative Exam Narrative: hyperalgesia to lumbar spine, pt requested i not touch her low back Constitutional Documenting provider has reviewed patient's vital signs: yes Common normals: no apparent distress, oriented x3, healthy appearing, alert and well nourished General appearance: cooperative HENMT Common normals: normocephalic, hearing grossly normal bilaterally and moist oral mucous membranes Head and scalp: normocephalic Eye Common normals: PERRL Pupil: PERRL Neck & C-Spine Common normals: full ROM General: normal visual inspection Chest Common normals: inspection of chest normal Respiratory Common normals: normal respiratory effort, no retractions and no use of accessory muscles Back & Pelvis Lumbar spine/lower back: ROM limited, pain with ROM and straight leg raise positive right Other: decreased sensation to right L3,4,5 strength 5/5 in BLE Neuro Common normals: oriented x3 Sensorium/orientation: alert Psych Common normals: mental status grossly normal, thought process normal, cooperative, affect normal, speech normal and activity/motor behavior normal Speech: normal speech Thought process: normal thought process Results Additional Findings Additional findings: If on a controlled substance or opioids, I have checked an [place] report on this patient and there are no aberrancies noted in the prescribing history.��If on a controlled substance or opioid a drug screen was completed and reviewed within the last year, and if there has not been a drug screen completed we ordered one today to monitor higher risk, state monitored pain medication use. As part of providing excellent, safe, comprehensive care, the following was completed at our patient's visit: 1. A medication reconciliation and review to ensure accurate knowledge of current/active medications, including asking our patients to inform us about any ldzx-qjf-tglqygn medications or herbal remedies/nutritional supplements/alternative remedies. 2. A review to specifically ensure our patients have had annual screening for screening for depression, screening for tobacco use, and screening for unhealthy alcohol use. For concerning screenings had a discussion with the patient, provided patient education, and recommended follow-up with primary care provider when appropriate. If patient noted with a risk of falling, they received education on strength, gait, and balance training to prevent future risk of falling. Portions of this note may have been carried over from the previous visit and updated as appropriate. Please note this office utilizes paper charting in addition to the electronic medical record. A list of current medications, vitals, and PMH is available there as the clinical staff outside of myself do not have access to [facility] charting during the clinic day operations. As part of providing quality comprehensive care the current medications, vitals, and PMH were reviewed in the paper chart. Assessment and Plan Assessment and Plan (1) Lumbar stenosis with neurogenic claudication: Assessment and Plan: 03-13-25 right L3-4 L4-5 TFESI 50% improvement for 1 week (2) Lumbar spondylosis: Assessment and Plan: multilevel facet mediated low back pain Plan 69yof who presents for evaluation. failed conservative measures, as noted. given symptoms and exam, lumbar mri reviewed with pt. start zonegran 50mg BID, risks vs benefits reviewed. she is not interested in NS consultation. increase tramadol 100mg BID PRN moderate to severe pain. narcan prescribed. f/u 3 weeks to evaluate response to medication regimen. defer further injections due to significant hyperalgesia
== END 2025-04-05 14:33 | disposition home or self-care (01) ==
LOC: PM 14:32
PROVIDERS: PCP Nurse Practitioner; Visit Provider Nurse Practitioner
DX: M48.062 Spinal stenosis, lumbar region with neurogenic claudication (principal); M47.816 Spondylosis without myelopathy or radiculopathy, lumbar region
CPT/HCPCS: G0463

== ENCOUNTER 2025-05-03 13:28 | Outpatient (OUT) | payer OTHER, SELFPAY ==
--- OUTSIDE RECORDS SUMMARY | 2025-04-26 17:30 | XMS_ITS | Encounter Summary ---
Author Organization [facility] Address [address] [place] [address] Care Team Providers Care Director Transportation Name Role Phone Judi Jimenez NP Unavailable [phone] Jamir Hare MD Primary Care Provider [phone] Jamir Hare MD Unavailable Reason for Referral * Medications - Closed Specialty Diagnoses / Procedures Referred By Chaparro michaels Referred To Contact Diagnoses Type 2 diabetes mellitus with insulin therapy (HCC) Judi Jimenez NP [address] [place] [address] Phone: tel: fax: Referral ID Status Reason Start Date Expiration Date Visits Re quested Visits Authorized [id number] Closed 1 1 Reason for Visit * Reason Comments Diabetes Encounter Details Date Type Department Care Team (Late Contact Info) Description 04/26/2025 5:30 PM EDT [facility] [address] [place] [address] Judi Jimenez NP [address] [place] [address] Type 2 diabetes mellitus with insulin therapy (HCC) (Primary Dx); Primary hypertension ; Gastro-esophageal reflux disease without esophagitis; Morbid (severe) obesity due to excess calories ([facility]-HCC); Spinal stenosis of lumbar region, unspecified whether neurogenic claudication present; Chronic bilateral low back pain without sciatica; Seborrheic keratoses, inflamed; Mixed hyperlipidemia ; Cerebral infarction, unspecified (HCC); Vitamin D deficiency; Gastroesophageal reflux disease without esophagitis Social History Tobacco Use Types Packs/Day Years Used Date Smoking Tobacco: Every Day Cigarettes 0.5 34.6 Started: 10/05/1990 Alcohol Use Standard Drinks/Week Comments [...] How often do you attend chur or gnosticism services? Never 12/28/2023 Do you belong to any clubs o r organizations such as denominational groups, unions, fraternal or athletic groups, or [...] Recorded Patient Health Questionnaire-2 Score 1 01/25/2025 [facility] - Occupational Stress Questionnaire Answer Date [...] place to sleep or slept in a nursing home (including now)? No 12/28/2023 Comments Unknown Sex and Gender Information Value Date Recorded Sex Assigned at Not on file Legal Sex Female 11:14 PM EDT Gender Identity Not on file Sexual Orientation Not on file documented as of this encounter Last Filed Vital Signs Vital Sign Reading Time Taken Comments Blood Pressure 140/80 04/26/2025 5:29 PM EDT Pulse 99 04/26/2025 5:29 PM EDT Temperature 36.9 C (98.5 F) 04/26/2025 5:29 PM EDT Respiratory Rate 18 04/26/2025 5:29 PM EDT Oxygen Saturation 98% 04/26/2025 5:29 PM EDT Inhaled Oxygen Concentration - - Weight 93.1 kg (205 lb 3.2 oz) 04/26/2025 5:29 P M EDT Height - - Body Mass Index 36.35 12/12/2024 5:36 PM EDT documented in this encounter Patient Instructions * Patient Instructions* Judi Jimenez NP - 04/26/2025 5:30 PM EDT Increase mounjaro to 12.5mg weekly documented in this encounter Progress Notes * Judi Jimenez NP - 04/26/2025 6:12 PM EDTAssociated Problem(s): Seborrheic keratoses, inflamed Lesions around bra strap and she can schedule a fu appt for removal * Judi Jimenez NP - 04/26/2025 6:11 PM EDTAssociated Problem(s): Chronic bilateral low back pain without sciatica Under care of [facility] Pain Mgmt No help with injections, muscle relaxants and anti convulsants have caused extreme side effects Having effect on QOL, not sure what to do, does not want spine surgery Encouraged to speak to pain mgmt regarding her concerns * Judi Jimenez NP - 04/26/2025 6:09 PM EDTAssociated Problem(s): Lumbar spinal stenosis Does not want to see neurosurgeon Pain levels 7/10 with radiation into legs * Judi Jimenez NP - 04/26/2025 5:30 PM EDT Images from the original note were not included. Dionne Arreola is a 69 y.o. female presents with chief complaint of Diabetes HPI: CGM: 7 day 137 avg 88% TIR, 12 % high GMI 6.6% 14 [id number] avg 89 % TIR, 11% high GMI 6.5% 30 day: 130 avg 92% TIR, 8% high 6.4% 90 day 133 avg 87% TIR 11% high and 1% very high 6.5% Diabetes She presents for her follow-up diabetic visit. She has type 2 diabetes mellitus. Her disease coursehas been stable. There are no hypoglycemic associated symptoms. Pertinent negatives for hypoglycemia include no dizziness, headaches, nervousness/anxiousness, seizures or tremors. Pertinent negativesfor diabetes include no chest pain, no polydipsia, no polyphagia and no polyuria. There are no hypoglycemic complications. Symptoms are stable. Risk factors for coronary artery disease include diabetes mellitus, dyslipidemia, hypertension, obesity and sedentary lifestyle. Current diabetic treatmentincludes insulin injections and oral agent (dual therapy) (GLP 1). Her weight is stable. An JOSE ROBERTO inhi bitor/angiotensin II receptor winsome is being taken. Eye exam is current. SUBJECTIVE: MEDICATIONS: Current Outpatient Medications Medication Instructions amLODIPine (NORVASC) 10 mg, Oral, Daily atorvastatin (LIPITOR) 80 mg, Oral, Nightly Breztri Aerosphere 160-9-4.8 MCG/ACT aerosol 2 puffs, 2 times daily clopidogrel (PLAVIX) 75 mg, Oral, Daily Continuous Glucose Burn Nurse (FreeStyle Maegan 3 [place]) device 1 each, Does not apply, Daily Continuous Glucose Sensor (FreeStyle Maegan 3 Sensor) [facility] USE DIRECTED to test BLOOD SUGAR DAILY; change EVERY 14 days cyclobenzaprine (FLEXERIL) 10 mg, 3 times daily empagliflozin (JARDIANCE) 25 mg, Oral, Every morning famotidine (PEPCID) 20 mg, Oral, Nightly insulin glargine (Basaglar KwikPen) 100 UNIT/ML pen 55 units daily losartan (COZAAR) 100 mg, Oral, Daily, Take 100 mg by mouth Daily metFORMIN (GLUCOPHAGE) 1,000 mg, Oral, 2 times daily with meals pantoprazole (PROTONIX) 40 mg, Oral, Daily tiZANidine (ZANAFLEX) 4 mg, Oral, Nightly PRN traMADol (ULTRAM) 100 mg, Every 12 hours PRN True Metrix Blood Glucose Test test strip 1 each, Daily Ventolin HFA 108 (90 Base) MCG/ACT inhaler 2 puffs, Inhalation, Every 6 hours PRN zonisamide (ZONEGRAN) 50 mg, 2 times daily ALLERGIES: Allergies Allergen Reactions Cephalexin Unknown Penicillins [...] myalgias. Skin: Negative for rash and wound. 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) Menopause 11/23/2023 Mixed hyperlipidemia 09/17/2023 Neoplasm of uncertain behavior 11/23/2023 Nontoxic goiter Osteoarthritis of right knee 11/23/2023 Primary hypertension 10/01/2023 Right upper extremity numbness Stroke (HCC) 11/23/2023 Type 2 diabetes mellitus with insulin therapy ([facility]) 11/23/2023 Visual impairment 11/23/2023 Vitamin D deficiency Past Surgical History: Procedure Laterality Date CERVICAL FUSION 1999 HYSTERECTOMY KNEE ARTHROPLASTY Right 2017 [place] KNEE SURGERY Right 2019 knee Infection in operative knee, treated at [facility] family history includes Breast cancer in her mother; Cancer in her mother; Diabetes in her sister; Multiple sclerosis in her sister; No Known Problems in her son; Thyroid disease in her sister. OBJECTIVE: Visit Vitals BP 140/80 (BP Location: Left arm, Patient Position: Sitting, BP Cuff Size: Adult long) Pulse 99 Temp 98.5 ??F (Temporal) Resp 18 Wt 205 lb 3.2 oz SpO2 98% BMI 36.35 kg/m?? Smoking Status Every Day BSA 2.03 m?? Physical Exam Vitals and nursing note reviewed. [...] refill takes 2 to 3 seconds. Findings: Lesion (several irriative SK appearing lesions) present. No rash. Neurological: General: No focal deficit present. Mental Status: She is alert and oriented to person, place, and time. Psychiatric: Mood and Affect: Mood normal. Behavior: Behavior normal. Thought Content: Thought content normal. Judgment: Judgment normal. ASSESSMENT AND PLAN: No follow-ups on file. Problem List Items Addressed This Visit Mixed hyperlipidemia Relevant Medications atorvastatin (Lipitor) 80 MG tablet Primary hypertension - Primary Please check blood pressure daily and record [...] EC tablet Type 2 diabetes mellitus with insulin therapy (HCC) Check blood sugars daily, notify if <70 or >200. Take medications (pills or insulin) as directed. Monitor for s/s of hypoglycemia (sweaty, dizziness, nausea, vomiting, or shakiness). Watch for increase in thirst, urination, or appetite. Inspect feet frequently monitoring for open wounds , andalso recommend yearly eye exam. Pt should attempt to remain as physically active as chronic conditions allow, as well as trying to follow a diet low in carbohydrates, and simple sugars. Current meds: insulin, mounjaro, metformin, jardiance, statin, asa A1c: 7.0% 04/26/25, 6.9% 12/12/24 Increase mounjaro to 12.5mg weekly Relevant Medications Tirzepatide (Mounjaro) 12.5 MG/0.5ML solution auto-injector empagliflozin (Jardiance) 25 MG insulin glargine (Basaglar KwikPen) 100 UNIT/ML pen metFORMIN (Glucophage) 1000 MG tablet Other Relevant Orders POCT glycosylated hemoglobin (Hb A1C) docked device (Completed) Vitamin D deficiency Relevant Medications ergocalciferol (Vitamin D2) 1.25 MG (60065 UT) capsule Chronic bilateral low back pain without sciatica Under care of [facility] Pain Mgmt No help with injections, muscle relaxants and anti convulsants have caused extreme side effects Having effect on QOL, not sure what to do, does not want spine surgery Encouraged to speak to pain mgmt regarding her concerns Morbid (severe) obesity due to excess calories ([facility]-HCC) Discussed with patient their BMI (actual, verses recommended). We have also discussed lifestyle modifications: attempts to perform physical activity as chronic conditions allow, also to monitor dietary intake: increasing protein/fruits/veggies and lowering carb intake (unless contraindicated). Limit sodas, juices, and sugary drinks. Does take mounjaro for tx of her DM Lumbar spinal stenosis Does not want to see neurosurgeon Pain levels 710 with radiation into legs Seborrheic keratoses, inflamed Lesions around bra strap and she can schedule a fu appt for removal Other Visit Diagnoses Cerebral infarction, unspecified (HCC) Relevant Medications clopidogrel (Plavix) 75 MG tablet Gastroesophageal reflux disease without esophagitis Relevant Medications famotidine (Pepcid) 20 MG tablet pantoprazole (ProtoNix) 40 MG EC tablet * Judi Jimenez NP - 04/26/2025 5:58 AM EDTAssociated Problem(s): Morbid (severe) obesity due to excess calories ([facility]-HCC) Discussed with patient their BMI (actual, verses recommended). We have also discussed lifestyle modifications: attempts to perform physical activity as chronic conditions allow, also to monitor dietary intake: increasing protein/fruits/veggies and lowering carb intake (unless contraindicated). Limit sodas, juices, and sugary drinks. Does take mounjaro for tx of her DM * Judi Jimenez NP - 04/26/2025 5:58 AM EDTAssociated Problem(s): Type 2 diabetes mellitus with insulin therapy (HCC) Check blood sugars daily, notify if <70 or >200. Take medications (pills or insulin) as directed. Monitor for s/s of hypoglycemia (sweaty, dizziness, nausea, vomiting, or shakiness). Watch for increase in thirst, urination, or appetite. Inspect feet frequently monitoring for open wounds , andalso recommend yearly eye exam. Pt should attempt to remain as physically active as chronic conditions allow, as well as trying to follow a diet low in carbohydrates, and simple sugars. Current meds: insulin, mounjaro, metformin, jardiance, statin, asa A1c: 7.0% 04/26/25, 6.9% 12/12/24 Increase mounjaro to 12.5mg weekly * Judi Jimenez NP - 04/26/2025 5:58 AM EDTAssociated Problem(s): Gastro- esophageal reflux disease without esophagitis Recommendations: freq small meals, nothing to eat or drink at least 2 hours prior to bed, limit caffeine, alcohol, as well as spicy foods Meds to limit or avoid if possible: NSAIDS Elevate HOB if possible Current med: pantoprazole * Judi Jimenez NP - 04/26/2025 5:58 AM EDTAssociated Problem(s): Primary hypertension Please check blood pressure daily and record DASH diet Limit caffeine Take medication as directed Contact office if chest pain, pressure, dizziness, shortness of breath, swelling legs Recommend slow position changes Current meds: amlodipine and losartan * Judi Jimenez NP - 04/26/2025 5:57 AM EDTAssociated Problem(s): Type 2 diabetes mellitus with diabetic neuropathy, unspecified (HCC) Freq foot checks, proper fitting footwear Adequate control of DM No current meds for this documented in this encounter Plan of Treatment Upcoming Encounters Date Type Department Care Team (Late st Contact Info) Description 05/29/2025 7:20 PM EDT Office Visit [facility] [address] [place] [address] Judi Jimenez, RUFINO [address] [place] [address] 08/02/2025 6:00 PM EDT Office Visit [facility] [address] [place] [address] Judi Jimenez, RUFINO [address] [place] [address] 01/29/2026 5:30 PM EDT Office Visit [facility] [address] [place] [address] Judi Jimenez, RUFINO [address] [place] [phone] documented as of this encounter Procedures Procedure Name Priority Date/Time Associated Diagnosis Comments POCT GLYCOSYLATED HEMOGLOBIN (HGB A1C) Routine 04/26/2025 5:48 PM EDT Type 2 diabetes mellitus with insulin therapy (HCC) documented in this encounter Results * (ABNORMAL) POCT glycosylated hemoglobin (Hb A1C) docked device (04/26/2025 5:48 PM EDT) Hemoglobin A1C 7 Blood Venous blood specimen / Unknown 04/26/2025 5:48 PM EDT Judi Jimenez NP POINT OF CARE TEST ENTER/EDIT O RDERABLES Final Result documented in this encounter Visit Diagnoses Diagnosis Type 2 diabetes mellitus with insulin therapy (HCC)- Primary Primary hypertension Unspecified essential hypertension Gastro-esophageal reflux disease without esophagitis Morbid (severe) obesity due to excess calories ([facility]-HCC) Spinal stenosis of lumbar region, unspecified whether neurogenic claudication present Chronic bilateral low back pain without sciatica Seborrheic keratoses, inflamed Mixed hyperlipidemia Mixed hyperlipidemia Cerebral infarction, unspecified (HCC) Vitamin D deficiency Gastroesophageal reflux disease without esophagitis Esophageal reflux documented in this encounter Additional Health Concerns Assessment Noted Time PHQ-9 Depression Total Score: 8 01/26/20 25 5:43 PM EDT documented as of this encounter Care Teams Director Transportation Relationship Specialty Start Date End Date Jamir Hare MD [address] [place] [address] PCP - General Family Medicine 10/30/23 Jamir Hare MD [address] [place] [address] PCP - Devoted 01/04/24 Judi Jimenez NP [address] [place] [address] Nurse Practitioner Family Medicine 10/05/22 documented as of this encounter
--- OUTSIDE RECORDS SUMMARY | 2025-05-03 13:30 | XMS_ITS | Encounter Summary ---
Author Organization [facility] Address [address] [place] [address] Care Team Providers Care Sprinkler Driver Name Role Phone Judi Jimenez NP Unavailable [phone] Jamir Hare MD Primary Care Provider [phone] Jamir Hare MD Unavailable Encounter Details Date Type Department Care Team (Late st Contact Info) Description 12/02/2023 Clinisync Result Encounter [facility] External Department Unsolicited Judi Jimenez NP [address] [place] [address] Social History Tobacco Use Types [...] Visit [facility] [address] [place] [phone] Judi Jimenez NP [address] [place] [address] 08/02/2025 6:00 PM EDT Office Visit [facility] [address] [place] [address] Judi Jimenez, RUFINO [address] [place] [address] 01/29/2026 5:30 PM EDT Office Visit [facility] [address] [place] [address] Judi Jimenez, SEPARATOR OPERATOR [employer] [address] [place] [address] documented as of this encounter Procedures Procedure [...] - 12/02/2023 10:39 AM EST us Judi Aichholz SEPARATOR OPERATOR [employer] [facility] Final Result Performing Organization Address City/[facility] Co de Phone Number [facility] TB * (ABNORMAL) [facility] UA (CLEAN/CATCH) MICROSCOPIC IF [...] EST Judi Jimenez NP [facility] Final Result Performing Organization Address [facility] de Phone Number [facility] TB * US BREAST LT LIMITED (12/02/2023 8:57 AM EST) Anatomical Region Laterality Modality Other 12/02/2023 8:57 AM EST Narrative 12/02/2023 8:58 [place] [address] Ultrasound Report Signed Patient: VANI ARREOLA MR#: [id number] : 1955 Acct:[id number] Age/Sex: 67 / F ADM Date: 12/02/23 Loc: MAMMO Attending Dr: Judi Jimenez NP Ordering Physician: Judi Jimenez NP Date of Service: 12/02/23 Procedure(s): US breast LT limited Accession Number(s): [id number] cc: Judi Jimenez NP Patient Name: VANI ARREOLA MR#: [id number] : 1955 Exam Date: 12/02/2023 Ordering Doctor: [...] at age 58. LOCATION: [facility] BREAST COMPOSITION: Scattered areas fibroglandular density. FINDINGS: DIAGNOSTIC CATEGORY 2--BENIGN FINDING. NO CHANGE FROM COMPARISON. Scattered benign-appearing calcifications are present. Scattered benign-appearing lymph nodes are present. RIGHT BREAST: No significant suspicious finding. LEFT BREAST: No significant suspicious finding. Ridgely marker demarcates a palpable mass upper-outer quadrant, [...] Signed By: 12/02/23 0858 DD/ 0857 TD/TT: Turn Machine Operator: Procedure Note Radiology, Radiologist, - 12/02/2023 [place] [address] Ultrasound Report Signed Patient: VANI ARREOLA KMR#: [id number] : 7Acct:[id number] Age/Sex: 67 / FADM Date: 12/02/23 Loc: MAMMO Attending Dr: Judi Jimenez NP Ordering Physician: Judi Jimenez NP Date of Service: 12/02/23 Procedure(s): US breast LT limited Accession Number(s): [id number] cc: Judi Jimenez NP Patient Name: VANI ARREOLA MR#: [id number] : 1955 Exam Date: 12/02/2023 Ordering Doctor: [...] at age 58. LOCATION: [facility] BREAST COMPOSITION: Scattered areas fibroglandular density. FINDINGS: DIAGNOSTIC CATEGORY 2--BENIGN FINDING. NO CHANGE FROM COMPARISON. Scattered benign-appearing calcifications are present. Scattered benign-appearing lymph nodes are present. RIGHT BREAST: No significant suspicious finding. LEFT BREAST: No significant suspicious finding. Ridgely markerdemarcates a palpable mass upper-outer quadrant, posterior [...] 08:57 Dictated By: Andre Walden M.D. Signed By:12/02/2358 DD/ TD/TT: Turn Machine Operator: Judi Jimenez NP [facility]AG[facility] Final Result * [facility] VITAMIN D 25 [place] (12/02/2023 7:41 AM EST) VITAMIN D 43.3 ng/mL [facility] Comment: <20 ng/mL Vit D deficient 20-<30 ng/mL Vit D insufficient 30-100 ng/mL Vit D sufficient >100 ng/mL Potential Toxicity 12/02/2023 7:41 AM EST 12/02/2023 7:44 AM EST Narrative [facility] - 12/02/2023 2:20 PM EST Judi Tony SEPARATOR OPERATOR [employer] [facility] Final Result Performing Organization Address [facility] Co de Phone Number [facility] * (ABNORMAL) MLR HEMOGLOBIN A1C (12/02/2023 7:41 AM EST) GLYCOHEMOGLOBIN A1C 6.8(H) 4.5 - 6.2 % [facility] Comment: ADA RECOMMENDED LIMIT 4.0 - 6.0 ADA THERAPEUTIC TARGET < 7.0 ACTION SUGGESTED > 7.0 ESTIMATED AVERAGE GLUCOSE 148 mg/dL [facility] 12/02/2023 7:41 AM EST 12/02/2023 7:44 AM EST Narrative [facility] - 12/02/2023 10:39 AM EST Judi Jimenez NP [facility] Final Result [facility] documented in this encounter Visit Diagnoses Not on filedocumented in this encounter Care Teams Sprinkler Driver Relationship Specialty Start Date End Date Jamir Hare MD [address] [place] [address] PCP - General Family Medicine 10/30/23 Jamir Hare MD [address] [place] [address] PCP - Devoted 01/04/24 Judi Jimenez NP [address] [place] [address] Nurse Practitioner Family Medicine 10/05/22 documented as of this encounter
--- OUTSIDE RECORDS SUMMARY | 2025-05-03 13:30 | XMS_ITS | Encounter Summary ---
Author Organization [facility] Address [address] [place] [address] Care Team Providers Care Illuminating Engineer Name Role Phone Judi Jimenez NP Unavailable [phone] Jamir Hare MD Primary Care Provider [phone] Jamir Hare MD Unavailable Encounter Details Date Type Department Care Team (Late st Contact Info) Description 02/10/2025 Orders Only [facility] [address] [place] [address] Kelvin Arreguin MD [address] [place] [address] Social History Tobacco Use Types [...] often do you attend chur ch or taoism services? Never 12/28/2023 Do you belong to [...] Recorded Patient Health Questionnaire-2 Score 1 01/25/2025 [facility] - Occupational Stress Questionnaire Answer Date [...] 05/29/2025 7:20 PM EDT Office Visit [facility] [address] [place] [address] Judi Jimenez NP [address] [place] [phone] 08/02/2025 6:00 PM EDT Office Visit [facility] [address] [place] [address] Judi Jimenez NP [address] [place] [phone] 01/29/2026 5:30 PM EDT Office Visit [facility] [address] [place] [address] Judi Jimenez, RUFINO [address] [place] [address] documented as of this encounter Procedures Procedure Name Priority Date/Time Associated Diagnosis Comments MRI LUMBAR SPINE WO CONTRAST Routine 02/10/2025 10:32 AM EDT documented in this encounter Results * MRI LUMBAR SPINE WO CONTRAST (02/10/2025 10:32 AM EDT) Anatomical Region Laterality Modality Radiographic Joyce ging us Kelvin Arreguin MD IMG XR PROCEDURES Final Re sult documented in this encounter Visit Diagnoses Not on filedocumented in this encounter Additional Health Concerns Assessment Noted Time PHQ-9 Depression Total Score: 8 01/26/20 25 5:43 PM EDT documented as of this encounter Care Teams Illuminating Engineer Relationship Specialty Start Date End Date Jamir Hare MD [address] [place] [address] PCP - General Family Medicine 10/30/23 Jamir Hare MD [address] [place] [address] PCP - Devoted 01/04/24 Judi Jimenez NP [address] [place] [address] Nurse Practitioner Family Medicine 10/05/22 documented as of this encounter
--- OUTSIDE RECORDS SUMMARY | 2025-05-03 13:30 | XMS_ITS | Encounter Summary ---
Author Organization [facility] Address [address] [place] [address] Care Team Providers Care Polysomnographer Name Role Phone Judi Jimenez NP Unavailable [phone] Jamir Hare MD Primary Care Provider [phone] Jamir Hare MD Unavailable Encounter Details Date Type Department Care Team (Late st Contact Info) Description 08/08/2024 External Result Encounter [facility] External Department Unsolicited Judi Jimenez, RUFINO [address] [place] [address] Social History Tobacco Use Types Packs/Day Years [...] often do you attend chur ch or spiritism services? Never 12/28/2023 Do you belong to any clubs o r organizations such as pentecostal groups, unions, fraternal or athletic groups, or [...] Recorded Patient Health Questionnaire-2 Score 1 04/18/2024 [facility] Answer Date Recorded [...] Visit [facility] [address] [place] [address] Judi Jimenez NP [address] [place] [address] 08/02/2025 6:00 PM EDT Office Visit [facility] [address] [place] [address] Judi Jimenez NP [address] [place] [address] 01/29/2026 5:30 PM EDT Office Visit [facility] [address] [place] [address] Judi Jimenez NP [address] [place] [address] documented as of this encounter Procedures Procedure [...] Norton Jr., D.OJennifer08/08/2024 11:45 AM Dictation Location: [place] [address] Transcribed By: [facility] 08/08/24 1145 Dictated By: Hugo Norton Jr, DO 08/08/24 1138 Signed By: <Electronically signed by Hugo Norton Jr, DO in OV> 08/08/24 1145 Narrative 08/08/2024 11:[address] [facility] [place] [address] [place] [address] Nuclear Medicine Report Signed Patient: Dionne Arreola MR#: [id number] : 1955 Acct:[id number] Age/Sex: 68 / F ADM Date: 08/08/24 Loc: Room: Type: [facility] Attending Dr: Judi Jimenez Copies to: [...] sb-mt Procedure Note Radiology, Radiologist, - 08/08/2024 [facility] Main [place] [address] [place] [address] Nuclear Medicine Report Signed Patient: Dionne Arreola KMR#: [id number] : 7Acct:[id number] Age/Sex: 68 / FADM Date: 08/08/24 Loc: Room:Type: [facility] Attending Dr: Judi Jimenez Copies to: [...] Norton Jr., D.O.08/08/2024 11:45 AM Dictation Location: [place] [address] Transcribed By: [facility] 08/08/24 1145 Dictated By: Hugo Norton Jr, DO 08/08/24 1138 Signed By: <Electronically signed by Hugo Norton Jr, DO inOV> 08/08/24 1145 Judi Jimenez NP IMG CT PROCEDURES Final Result documented in this encounter Visit Diagnoses Not on filedocumented in this encounter Additional Health Concerns Assessment Noted Time PHQ-9 Depression Total Score: 3 12/28/19 24 5:09 PM EDT documented as of this encounter Care Teams Polysomnographer Relationship Specialty Start Date End Date Jamir Hare MD [address] [place] [address] PCP - General Family Medicine 10/30/23 Jamir Hare MD [address] [place] [address] PCP - Devoted 01/04/24 Judi Jimenez NP [address] [place] [address] Nurse Practitioner Family Medicine 10/05/22 documented as of this encounter
--- OUTSIDE RECORDS SUMMARY | 2025-05-03 13:30 | XMS_ITS | Encounter Summary ---
Author Organization [facility] Address [address] [place] [address] Care Team Providers Care Stock Wetter Name Role Phone Judi Jimenez NP Unavailable [phone] Jamir Hare MD Primary Care Provider [phone] Jamir Hare MD Unavailable Encounter Details Date Type Department Care Team (Late Contact Info) Description 11/18/2023 Abstract [facility] [address] [place] [address] Judi Jimenez NP [address] [place] [address] Social History Tobacco Use Types Packs/Day Years Used Date Smoking Tobacco: Every Day Cigarettes 0.5 34.6 Started: 10/05/1990 Tobacco Cessation:Ready to Q uit: [...] Department Care Team (Late Contact Info) Description 05/29/2025 7:20 PM EDT Office Visit [facility] [address] [place] [address] Judi Jimenez NP [address] [place] [address] 08/02/2025 6:00 PM EDT Office Visit [facility] [address] [place] [address] Judi Jimenez NP [address] [place] [address] 01/29/2026 5:30 PM EDT Office Visit [facility] [address] [place] [address] Judi Jimenez NP [address] [place] [address] documented as of this encounter Visit Diagnoses Not on filedocumented in this encounter Care Teams Stock Wetter Relationship Specialty Start Date End Date Jamir Hare MD [address] [place] [address] PCP - General Family Medicine 10/30/23 Jamir Hare MD [address] [place] [address] PCP - Devoted 01/04/24 Judi Jimenez NP [address] [place] [address] Nurse Practitioner Family Medicine 10/05/22 documented as of this encounter
--- OUTSIDE RECORDS SUMMARY | 2025-05-03 13:30 | XMS_ITS | Encounter Summary ---
Author Organization [facility] Address [address] [place] [address] Care Team Providers Care Employment Advisor Name Role Phone Judi Jimenez NP Unavailable [phone] Jamir Hare MD Primary Care Provider [phone] Jamir Hare MD Unavailable Encounter Details Date Type Department Care Team (Late st Contact Info) Description 12/02/2023 Clinisync Result Encounter [facility] External Department Unsolicited Judi Jimenez NP [address] [place] [address] Social History Tobacco Use Types [...] Visit [facility] [address] [place] [address] Judi Jimenez NP [address] [place] [address] 08/02/2025 6:00 PM EDT Office Visit [facility] [address] [place] [address] Judi Jimenez NP [address] [place] [address] 01/29/2026 5:30 PM EDT Office Visit [facility] [address] [place] [address] Judi Jimenez, RUFINO [address] [place] [address] documented as of this encounter Procedures Procedure Name Priority Date/Time Associated Diagnosis Comments MM TOMOSYNTHESIS DIAGNOSTIC BI 12/02/2023 8:57 AM EST documented in this encounter Results * MM TOMOSYNTHESIS DIAGNOSTIC BI (12/02/2023 8:57 AM EST) Anatomical Region Laterality Modality Other 12/02/2023 8:57 AM EST Narrative 12/02/2023 8:57 AM EST [address] [address] Mammography Report Signed Patient: VANI ARREOLA MR#: [id number] : 1955 Acct:[id number] Age/Sex: 67 / F ADM Date: 12/02/23 Loc: MAMMO Attending Dr: Judi Jimenez NP Ordering Physician: Judi Jimenez NP Results: Date of Service: 12/02/23 Follow Up: Procedure(s): MM tomosynthesis diagnostic BI Accession Number(s): [id number] cc: Judi Jimenez NP Patient Name: VANI ARREOLA MR#: [id number] : 1955 Exam Date: 12/02/2023 Ordering Doctor: ELEANOR Jimenez FOOD AND BEVERAGE ASSOCIATE RADIOLOGY REPORT PROCEDURE: MM TOMOSYNTHESIS DIAGNOSTIC BI, [...] colon cancer at age 58. LOCATION: [facility] BREAST COMPOSITION: Scattered areas fibroglandular density. FINDINGS: DIAGNOSTIC CATEGORY 2--BENIGN FINDING. NO CHANGE FROM COMPARISON. Scattered benign-appearing calcifications are present. Scattered benign-appearing lymph nodes are present. RIGHT BREAST: No significant suspicious finding. LEFT BREAST: No significant suspicious finding. Hardy marker demarcates a palpable mass upper-outer quadrant, [...] Signed By: 12/02/23 0857 DD/ 0857 TD/TT: Crisis Intervention Counselor: Procedure Note Radiology, Radiologist, - 12/02/2023 [place] [address] Mammography Report Signed Patient: VANI ARREOLA KMR#: [id number] : 7Acct:[id number] Age/Sex: 67 / FADM Date: 12/02/23 Loc: MAMMO Attending Dr: Judi Jimenez DEGREASER Ordering Physician: Aichholz,Judi NPResults: Date of Service: 12/02/23Follow Up: Procedure(s): MM tomosynthesis diagnostic BI Accession Number(s): [id number] cc: TonyJudi DEGREASER Patient Name: VANI ARREOLA MR#: [id number] : 1955 Exam Date: 12/02/2023 Ordering Doctor: ELEANOR Jimenez FOOD AND BEVERAGE ASSOCIATE RADIOLOGY REPORT PROCEDURE: MM TOMOSYNTHESIS DIAGNOSTIC BI, [...] colon cancer at age 58. LOCATION: [facility] BREAST COMPOSITION: Scattered areas fibroglandular density. FINDINGS: DIAGNOSTIC CATEGORY 2--BENIGN FINDING. NO CHANGE FROM COMPARISON. Scattered benign-appearing calcifications are present. Scattered benign-appearing lymph nodes are present. RIGHT BREAST: No significant suspicious finding. LEFT BREAST: No significant suspicious finding. Hardy markerdemarcates a palpable mass upper-outer quadrant, posterior [...] Andre Walden M.D. Signed By:12/02/2357 DD/ TD/TT: Crisis Intervention Counselor: us Judi Jimenez [facility] Final Result documented in this encounter Visit Diagnoses Not on filedocumented in this encounter Care Teams Employment Advisor Relationship Specialty Start Date End Date Jamir Hare MD [address] [place] [address] PCP - General Family Medicine 10/30/23 Jamir Hare MD [address] [place] [address] PCP - Devoted 01/04/24 Judi Jimenez NP [address] [place] [address] Nurse Practitioner Family Medicine 10/05/22 documented as of this encounter
--- OUTSIDE RECORDS SUMMARY | 2025-05-03 13:30 | XMS_ITS | Encounter Summary ---
Author Organization [facility] Address [address] [place] [address] Care Team Providers Care Clothing Supervisor Name Role Phone Judi Jimenez NP Unavailable [phone] Jamir Hare MD Primary Care Provider [phone] Jamir Hare MD Unavailable Reason for Visit * Reason Comments Med Refill Encounter Details Date Type Department Care Team (Late st Contact Info) Description 12/10/2023 Refill [facility] [address] [place] [address] Jdui Jimenez NP [address] [place] [address] Social History Tobacco Use Types Packs/Day Years [...] [facility] [address] [place] [address] Judi Jimenez, RUFINO [address] [place] [address] 08/02/2025 6:00 PM EDT Office Visit [facility] [address] [place] [address] Judi Jimenez, RUFINO [address] [place] [address] 01/29/2026 5:30 PM EDT Office Visit [facility] [address] [place] [address] Judi Jimenez, RUFINO [address] [place] [address] documented as of this encounter Visit Diagnoses Not on filedocumented in this encounter Care Teams Clothing Supervisor Relationship Specialty Start Date End Date Jamir Hare MD [address] [place] [address] PCP - General Family Medicine 10/30/23 Jamir Hare MD [address] [place] [address] PCP - Devoted 01/04/24 Judi Jimenez NP [address] [place] [address] Nurse Practitioner Family Medicine 10/05/22 documented as of this encounter
--- OUTSIDE RECORDS SUMMARY | 2025-05-03 13:30 | XMS_ITS | Encounter Summary ---
Author Organization [facility] Address [address] [place] [address] Care Team Providers Care Leather Goods Sales Representative Name Role Phone Judi Jimenez NP Unavailable [phone] Jamir Hare MD Primary Care Provider [phone] Jamir Hare MD Unavailable Encounter Details Date Type Department Care Team (Late st Contact Info) Description 07/25/2024 Clinisync Result Encounter [facility] External Department Unsolicited Judi Jimenez NP [address] [place] [address] Social History Tobacco Use Types Packs/Day Years [...] often do you attend chur ch or caodaism services? Never 12/28/2023 Do you belong to any clubs o r organizations such as anabaptist groups, unions, fraternal or athletic groups, or [...] Recorded Patient Health Questionnaire-2 Score 1 04/18/2024 [facility] - Occupational Stress Questionnaire Answer Date [...] 05/29/2025 7:20 PM EDT Office Visit [facility] [address] [place] [address] Judi Jimenez NP [address] [place] [address] 08/02/2025 6:00 PM EDT Office Visit [facility] [address] [place] [address] Judi Jimenez NP [address] [place] [address] 01/29/2026 5:30 PM EDT Office Visit [facility] [address] [place] [address] Judi Jimenez NP [address] [place] [address] documented as of this encounter Procedures Procedure Name Priority Date/Time Associated Diagnosis Comments CT CHEST W CONTRAST 07/25/2024 1 :26 PM EDT documented in this encounter Results * CT CHEST W CONTRAST (07/25/2024 1:26 PM EDT) Anatomical Region Laterality Modality Other 07/25/2024 1:26 PM EDT Narrative 07/25/2024 1:29 PM EDT [address] [address] [address] Scan Report Signed Patient: DIONNE ARREOLA MR#: [id number] : 1955 Acct:[id number] Age/Sex: 68 / F ADM Date: 07/22/24 Loc: CT Attending Dr: Judi Jimenez NP Ordering Physician: Judi Jimenez NP Date of Service: 07/22/24 Procedure(s): CT chest w con Accession Number(s): [id number] cc: Judi Jimenez NP [address] [address] Patient Name: DIONNE ARREOLA MRN: [id number] date: 1955 Sex: F Assigned Patient Location: CT Current Patient Location: Accession/Order Number: [id number] Exam Date: 07/22/2024 09:09 Report Date: 07/25/2024 [...] Dictated By: Ash Acuña M.D. Signed By: 07/25/249 DD/ 25 TD/TT: Construction Person: Procedure Note Radiology, Radiologist, MD - 07/25/2024 [place] [address] CT Scan Report Signed Patient: DIONNE ARREOLA KMR#: [id number] : 1955cct:[id number] Age/Sex: 68 / FADM Date: 07/22/24 Loc: CT Attending Dr: Judi Jimenez NP Ordering Physician: Judi Jimenez NP Date of Service: 07/22/24 Procedure(s): CT chest w con Accession Number(s): [id number] cc: Judi Jimenez NP [facility] [place] [address] Patient Name: DIONNE ARREOLA MRN: [id number] date: 1955 Sex: F Assigned Patient Location: CT Current Patient Location: Accession/Order Number: [id number] Exam Date: 07/22/2024 09:09 Report Date: 07/25/2024 [...] M.D. Signed By:07/25/24 1329 DD/ 1326 TD/TT: Construction Person: us Judi Jimenez STERILE PROCESSING TECH [facility] Final Result documented in this encounter Visit Diagnoses Not on filedocumented in this encounter Additional Health Concerns Assessment Noted Time PHQ-9 Depression Total Score: 3 12/28/19 24 5:09 PM EDT documented as of this encounter Care Teams Leather Goods Sales Representative Relationship Specialty Start Date End Date Jamir Hare MD [address] [place] [address] PCP - General Family Medicine 10/30/23 Jamir Hare MD [address] [place] [address] PCP - Devoted 01/04/24 Judi Jimenez NP [address] [place] [address] Nurse Practitioner Family Medicine 10/05/22 documented as of this encounter
--- OUTSIDE RECORDS SUMMARY | 2025-05-03 13:31 | XMS_ITS | Encounter Summary ---
Author Organization [facility] Address [address] [place] [address] Care Team Providers Care Recycling Director Name Role Phone Judi Jimenez NP Unavailable [phone] Jamir Hare MD Primary Care Provider [phone] Jamir Hare MD Unavailable Reason for Visit * Reason Comments Med Change Request Encounter Details Date Type Department Care Team (Late st Contact Info) Description 09/14/2024 Refill [facility] [address] [place] [address] Judi Jimenez NP [address] [place] [address] Type 2 diabetes mellitus with insulin therapy (HCC) Social History Tobacco Use Types Packs/Day Years [...] How often do you attend chur or hindu services? Never 12/28/2023 Do you belong to any clubs o r organizations such as hoahaoism groups, unions, fraternal or athletic groups, or [...] Recorded Patient Health Questionnaire-2 Score 1 04/18/2024 [facility] - Occupational Stress Questionnaire Answer Date [...] Visit [facility] [address] [place] [address] Judi Jimenez NP [address] [place] [address] 08/02/2025 6:00 PM EDT Office Visit [facility] [address] [place] [address] Judi Jimenez NP [address] [place] [address] 01/29/2026 5:30 PM EDT Office Visit [facility] [address] [place] [address] Judi Jimenez, RUFINO [address] [place] [address] documented as of this encounter Visit Diagnoses Diagnosis Type 2 diabetes mellitus with insulin therapy (HCC) documented in this encounter Additional Health Concerns Assessment Noted Time PHQ-9 Depression Total Score: 3 12/28/19 24 5:09 PM EDT documented as of this encounter Care Teams Recycling Director Relationship Specialty Start Date End Date Jamir Hare MD [address] [place] [address] PCP - General Family Medicine 10/30/23 Jamir Hare MD [address] [place] [address] PCP - Devoted 01/04/24 Judi Jimenez NP [address] [place] [address] Nurse Practitioner Family Medicine 10/05/22 documented as of this encounter
--- OUTSIDE RECORDS SUMMARY | 2025-05-03 13:31 | XMS_ITS | Encounter Summary ---
Author Organization [facility] Address [address] [place] [address] Care Team Providers Care Electrical Tester Battery Name Role Phone Judi Jimenez NP Unavailable [phone] Jamir Hare MD Primary Care Provider [phone] Jamir Hare MD Unavailable Encounter Details Date Type Department Care Team (Late st Contact Info) Description 07/17/2024 Clinisync Result Encounter [facility] External Department Unsolicited Judi Jimenez NP [address] [place] [address] Social History Tobacco Use Types Packs/Day Years [...] often do you attend chur ch or quaker services? Never 12/28/2023 Do you belong to any clubs o r organizations such as jain groups, unions, fraternal or athletic groups, or [...] Recorded Patient Health Questionnaire-2 Score 1 04/18/2024 [facility] Questionnaire Answer Date [...] 05/29/2025 7:20 PM EDT Office Visit [facility] [address] [place] [address] Judi Jimenez NP [address] [place] [address] 08/02/2025 6:00 PM EDT Office Visit [facility] [address] [place] [address] Judi Jimenez NP [address] [place] [address] 01/29/2026 5:30 PM EDT Office Visit [facility] [address] [place] [address] Judi Jimenez NP [address] [place] [address] documented as of this encounter Procedures Procedure Name Priority Date/Time Associated Diagnosis Comments XR KNEE 3 VIEWS RIGHT 07/17/2024 8:57 AM EDT documented in this encounter Results * XR knee 3 views right (07/17/2024 8:57 AM EDT) Anatomical Region Laterality Modality Lower Extremities, Knee Right [facility] 07/17/2024 8:57 AM EDT Narrative 07/17/2024 9:00 AM EDT [address] [address] XRay Report Signed Patient: DIONNE ARREOLA MR#: [id number] : 1955 Acct:[id number] Age/Sex: 68 / F ADM Date: 07/15/24 Loc: [facility] Attending Dr: Judi Jimenez PLANT HR MANAGER Ordering Physician: Judi Jimenez NP Date of Service: 07/15/24 Procedure(s): XR knee RT 3V Accession Number(s): [id number] cc: Judi Jimenez NP [address] [address] Patient Name: DIONNE ARREOLA MRN: [id number] date: 1955 Sex: F Assigned Patient Location: [facility] Current Patient Location: Accession/Order Number: [id number] Exam Date: 07/15/2024 16:00 Report Date: 07/17/2024 [...] M.D. Signed By: 07/17/24899 DD/ 6 TD/TT: Tnt Line Supervisor: Procedure Note Radiology, Radiologist, MD - 07/17/2024 [place] [address] XRay Report Signed Patient: DIONNE ARREOLA KMR#: [id number] : 1955cct:[id number] Age/Sex: 68 / FADM Date: 07/15/24 Loc: [facility] Attending Dr: Judi Jimenez NP Ordering Physician: Judi Jimenez NP Date of Service: 07/15/24 Procedure(s): XR knee RT 3V Accession Number(s): [id number] cc: Judi Jimenez NP [facility] [place] [address] Patient Name: DIONNE ARREOLA MRN: [id number] date: 1955 Sex: F Assigned Patient Location: [facility] Current Patient Location: Accession/Order Number: [id number] Exam Date: 07/15/2024 16:00 Report Date: 07/17/2024 [...] By: Alok Booker M.D. Signed By:07/17/24899 DD/ 0857 TD/TT: Tnt Line Supervisor: us Judi Jimenez PLANT HR MANAGER IMG XR PROCEDURES Final Result documented in this encounter Visit Diagnoses Not on filedocumented in this encounter Additional Health Concerns Assessment Noted Time PHQ-9 Depression Total Score: 3 12/28/19 24 5:09 PM EDT documented as of this encounter Care Teams Electrical Tester Battery Relationship Specialty Start Date End Date Jamir Hare MD [address] [place] [address] PCP - General Family Medicine 10/30/23 Jamir Hare MD [address] [place] [address] PCP - Devoted 01/04/24 Judi Jimenez NP [address] [place] [address] Nurse Practitioner Family Medicine 10/05/22 documented as of this encounter
--- OUTSIDE RECORDS SUMMARY | 2025-05-03 13:31 | XMS_ITS | Clinical Summary ---
Author Organization [facility] Address [facility] [facility] [place] [id number] Care Team Providers Care Solar Sales Representative Name Role Phone Unavailable Primary Care Provider [...]
--- OUTSIDE RECORDS SUMMARY | 2025-05-03 13:31 | XMS_ITS | Encounter Summary ---
Author Organization [facility] Address [address] [place] [address] Care Team Providers Care Pizza Maker Name Role Phone Judi Jimenez NP Unavailable [phone] Jamir Hare MD Primary Care Provider [phone] Jamir Hare MD Unavailable Encounter Details Date [...] often do you attend chur ch or anabaptist services? Never 12/28/2023 Do you belong to any clubs o r organizations such as nondenominational groups, unions, fraternal or athletic groups, or [...] Recorded Patient Health Questionnaire-2 Score 1 04/18/2024 [facility] - Occupational [...] place to sleep or slept in a penitentiary (including now)? No 12/28/2023 Comments Unknown Sex [...] Visit [facility] [address] [place] [address] Judi Jimenez NP [address] [place] [address] 08/02/2025 6:00 PM EDT Office Visit [facility] [address] [place] [address] Judi Jimenez NP [address] [place] [address] 01/29/2026 5:30 PM EDT Office Visit [facility] [address] [place] [address] Judi Jimenez NP [address] [place] [id number] documented as of this encounter Procedures Procedure Name Priority Date/Time Associated Diagnosis Comments NM BONE IMAGE 3 PHASE 09/05/2024 6:32 AM EST documented in this encounter Results * NM BONE IMAGE 3 PHASE (09/05/2024 6:32 AM EST) Anatomical Region Laterality Modality Radiographic Joyce ging 09/05/2024 6:32 AM EST Narrative 09/05/2024 6:35 [place] [address] Nuclear Medicine Report Signed Patient: VANI ARREOLA MR#: [id number] : 1955 Acct:[id number] Age/Sex: 68 / F ADM Date: 09/02/24 Loc: [facility] Attending Dr: JUAN JUSTICE [employer] PLANTATION MANAGER Ordering Physician: JUAN JUSTICE NP Date of Service: 09/02/24 Procedure(s): NM bone 3 phase Accession Number(s): [id number] cc: JUAN JUSTICE [employer] PLANTATION MANAGER; Judi Jimenez NP [place] [id number] Patient Name: VANI ARREOLA MRN: [id number] date: 1955 Sex: F Assigned Patient Location: [place] Current Patient Location: Accession/Order Number: [id number] Exam Date: 09/02/2024 08:00 Report Date: 09/05/2024 06:32 At the request of: JUAN JUSTICE Procedure: NM bone 3 phase EXAMINATION: MS bone 3 phase HISTORY: STATUS POST RIGHT [...] M.D. Signed By: 09/05/2435 DD/ 1 TD/TT: Logistics/Shipper: Procedure Note Radiology, Radiologist, MD - 09/05/2024 [place] [address] Nuclear Medicine Report Signed Patient: VANI ARREOLA KMR#: [id number] : 1955cct:[id number] Age/Sex: 68 / FADM Date: 09/02/24 Loc: [place] Attending Dr: JUAN JUSTICE [employer] PLANTATION MANAGER Ordering Physician: JUAN JUSTICE NP Date of Service: 09/02/24 Procedure(s): MS bone 3 phase Accession Number(s): [id number] cc: JUAN JUSTICE SUGAR PLANTATION MANAGER; Judi Jimenez NP [facility] [place] [address] Patient Name: VANI ARREOLA MRN: [id number] date: 1955 Sex: F Assigned Patient Location: MS Current Patient Location: Accession/Order Number: [id number] Exam Date: 09/02/2024 08:00 Report Date: 09/05/2024 [...] likely due to degenerative changes. OTHER: Negative. NM/MS bone 3 phase IMPRESSION: 1. Mild radiotracer activity surrounding the right knee prostheticcomponents consistent with chronic remodeling; not unexpected. No specific findingsto suggest loosening. 2. Suspect degenerative changes of the left knee. No prior radiographs ofthe left knee. Electronically authenticated by: ALOK BOOKER Date: 09/05/2024 06:32 Dictated By: Alok Booker M.D. Signed By:09/05/2435 DD/ 1 TD/TT: Logistics/Shipper: us Generic External Data Provider IMG XR PROCEDURES Final Result documented in this encounter Visit Diagnoses Not on filedocumented in this encounter Additional Health Concerns Assessment Noted Time PHQ-9 Depression Total Score: 3 12/28/19 24 5:09 PM EDT documented as of this encounter Care Teams Pizza Maker Relationship Specialty Start Date End Date Jamir Hare MD [address] [place] [address] PCP - General Family Medicine 10/30/23 Jamir Hare MD [address] [place] [address] PCP - Devoted 01/04/24 Judi Jimenez NP [address] [place] [address] Nurse Practitioner Family Medicine 10/05/22 documented as of this encounter
--- OUTSIDE RECORDS SUMMARY | 2025-05-03 13:31 | XMS_ITS | Encounter Summary ---
Author Organization [facility] Address [address] [place] [address] Care Team Providers Care Supervisor Engraving Name Role Phone Judi Jimenez NP Unavailable [phone] Jamir Hare MD Primary Care Provider [phone] Jamir Hare MD Unavailable Encounter Details Date Type Department Care Team (Late st Contact Info) Description 04/05/2025 Abstract [facility] [address] [place] [address] Judi Jimenez NP [address] [place] [address] Social History Tobacco Use Types Packs/Day Years [...] Recorded Patient Health Questionnaire-2 Score 1 01/25/2025 [facility] - Occupational Stress Questionnaire Answer Date [...] 7:20 PM EDT Office Visit [facility] [address] [place] [address] Judi Jimenez NP [address] [place] [phone] 08/02/2025 6:00 PM EDT Office Visit [facility] [address] [place] [address] Judi Jimenez NP [address] [place] [address] 01/29/2026 5:30 PM EDT Office Visit [facility] [address] [place] [address] Judi Jimenez, RUFINO [address] [place] [address] documented as of this encounter Visit Diagnoses Not on filedocumented in this encounter Additional Health Concerns Assessment Noted Time PHQ-9 Depression Total Score: 8 01/26/20 25 5:43 PM EDT documented as of this encounter Care Teams Supervisor Engraving Relationship Specialty Start Date End Date Jamir Hare MD [address] [place] [address] PCP - General Family Medicine 10/30/23 Jamir Hare MD [address] [place] [address] PCP - Devoted 01/04/24 Judi Jimenez NP [address] [place] [address] Nurse Practitioner Family Medicine 10/05/22 documented as of this encounter
--- OUTSIDE RECORDS SUMMARY | 2025-05-03 13:31 | XMS_ITS | Encounter Summary ---
Author Organization [facility] Address [address] [place] [address] Care Team Providers Care Seismographer Name Role Phone Judi Jimenez NP Unavailable [phone] Jamir Hare MD Primary Care Provider [phone] Jamir Hare MD Unavailable Encounter Details Date Type Department Care Team (Late st Contact Info) Description 03/13/2025 Abstract [facility] [address] [place] [address] Judi Jimenez NP [address] [place] [address] Social History Tobacco Use Types Packs/Day Years [...] often do you attend chur ch or church services? Never 12/28/2023 Do you belong to any clubs o r organizations such as mosque groups, unions, fraternal or athletic groups, or [...] Recorded Patient Health Questionnaire-2 Score 1 01/25/2025 [facility] - Occupational Stress Questionnaire Answer Date [...] 7:20 PM EDT Office Visit [facility] [address] [place] [address] Judi Jimenez NP [address] [place] [address] 08/02/2025 6:00 PM EDT Office Visit [facility] [address] [place] [address] Judi Jimenez NP [address] [place] [address] 01/29/2026 5:30 PM EDT Office Visit [facility] [address] [place] [address] Judi Jimenez, RUFINO [address] [place] [address] documented as of this encounter Visit Diagnoses Not on filedocumented in this encounter Additional Health Concerns Assessment Noted Time PHQ-9 Depression Total Score: 8 01/26/20 25 5:43 PM EDT documented as of this encounter Care Teams Seismographer Relationship Specialty Start Date End Date Jamir Hare MD [address] [place] [address] PCP - General Family Medicine 10/30/23 Jamir Hare MD [address] [place] [address] PCP - Devoted 01/04/24 Judi Jimenez NP [address] [place] [address] Nurse Practitioner Family Medicine 10/05/22 documented as of this encounter
--- OUTSIDE RECORDS SUMMARY | 2025-05-03 13:31 | XMS_ITS | Encounter Summary ---
Author Organization [facility] Address [address] [place] [address] Care Team Providers Care Medic Technician Name Role Phone Judi Jimenez NP Unavailable [phone] Jamir Hare MD Primary Care Provider [phone] Jamir Hare MD Unavailable Encounter Details Date Type Department Care Team (Late st Contact Info) Description 07/18/2024 Orders Only [facility] [address] [place] [address] Judi Jimenez NP [address] [place] [address] Social History Tobacco Use Types Packs/Day Years [...] any clubs o r organizations such as gnosticism groups, unions, fraternal or athletic groups, or [...] Recorded Patient Health Questionnaire-2 Score 1 04/18/2024 [facility] Questionnaire Answer Date Recorded [...] [facility] [address] [place] [address] Judi Jimenez NP [address] [place] [address] 08/02/2025 6:00 PM EDT Office Visit [facility] [address] [place] [address] Judi Jimenez NP [address] [place] [address] 01/29/2026 5:30 PM EDT Office Visit [facility] [address] [place] [address] Judi Jimenez, RUFINO [address] [place] [address] documented as of this encounter Visit Diagnoses Not on filedocumented in this encounter Additional Health Concerns Assessment Noted Time PHQ-9 Depression Total Score: 3 12/28/19 24 5:09 PM EDT documented as of this encounter Care Teams Medic Technician Relationship Specialty Start Date End Date Jamir Hare MD [address] [place] [address] PCP - General Family Medicine 10/30/23 Jamir Hare MD [address] [place] [address] PCP - Devoted 01/04/24 Judi Jimenez NP [address] [place] [address] Nurse Practitioner Family Medicine 10/05/22 documented as of this encounter
--- OUTSIDE RECORDS SUMMARY | 2025-05-03 13:31 | XMS_ITS | Clinical Summary ---
Author Organization [facility] Healthcare Address [address] [place] [address] Care Team Providers Care Ballast Cleaning Operator Name Role Phone Judi Jimenez NP Unavailable [phone] Jamir Hare MD Primary Care Provider [phone] Jamir Hare MD Unavailable Allergies Active Allergy Reactions Criticality Noted Date Comments Cephalexin Unknown 09/15/2019 Penicillins 09/07/2023 Sulfa Antibiotics 09/07/2023 Medications True Metrix Blood Glucose Test test strip 1 each by Other route Daily 12/02/19 24 Active Continuous Glucose Title Insurance Sales Representative (FreeStyle Maegan 3 [place]) deviceIndications :Type 2 diabetes mellitus with insulin therapy (HCC) 1 each Daily 1 each 09/15/20 24 025 Active Continuous Glucose Sensor (FreeStyle Maegan 3 Sensor) misc USE DIRECTED to test BLOOD SUGAR DAILY; change EVERY 14 days 11/13/19 25 Active Ventolin HFA 108 (90 Base) MCG/ACT inhalerIndication s:Mild intermittent asthma without complication (HCC) Inhale 2 puffs every 6 (six) hours if needed for wheezing 18 g 1 04/03/20 25 Active Breztri Aerosphere 160-9-4.8 MCG/ACT aerosol Inhale 2 puffs in the morning and 2 puffs before bedtime. 04/20/20 25 Active traMADol (Ultram) 50 MG tablet Take 100 mg by mouth every 12 (twelve) hours if needed for moderate pain 04/05/20 25 Active Tirzepatide (Mounjaro) 12.5 MG/0.5ML solution auto-injectorIndi cations:Type 2 diabetes mellitus with insulin therapy ([facility]) Inject 12.5 mg under the skin every 7 (seven) days for 28 days 2 mL 04/26/20 Active amLODIPine (Norvasc) 10 MG tabletIndications :Primary hypertension Take 1 tablet (10 mg) by mouth Daily 90 tablet 04/26/20 Active atorvastatin (Lipitor) 80 MG tabletIndications :Mixed hyperlipidemia Take 1 tablet (80 mg) by mouth at bedtime 90 tablet 04/26/20 Active clopidogrel (Plavix) 75 MG tabletIndications :Cerebral infarction, unspecified ([facility]) Take 1 tablet (75 mg) by mouth Daily 90 tablet 04/26/20 Active empagliflozin (Jardiance) 25 MGIndications:Typ e 2 diabetes mellitus with insulin therapy ([facility]) Take 1 tablet (25 mg) by mouth in the morning. 90 tablet 04/26/20 Active ergocalciferol (Vitamin D2) 1.25 MG (80478 UT) capsuleIndication s:Vitamin D deficiency Take 1 capsule (1.25 mg) by mouth 1 (one) time per week 12 capsule 04/26/20 Active famotidine (Pepcid) 20 MG tabletIndications :Gastroesophageal reflux disease without esophagitis Take 1 tablet (20 mg) by mouth at bedtime 90 tablet 04/26/20 025 Active insulin glargine (Basaglar KwikPen) 100 UNIT/ML penIndications:Ty pe 2 diabetes mellitus with insulin therapy ([facility]) 55 units daily 60 mL 04/26/20 Active losartan (Cozaar) 100 MG tabletIndications :Primary hypertension Take 1 tablet (100 mg) by mouth Daily Take 100 mg by mouth Daily 90 tablet 04/26/20 025 Active metFORMIN (Glucophage) 1000 MG tabletIndications :Type 2 diabetes mellitus with insulin therapy ([facility]) Take 1 tablet (1,000 mg) by mouth in the morning and 1 tablet (1,000 mg) in the evening. Take with meals. 180 tablet 04/26/20 025 Active pantoprazole (ProtoNix) 40 MG EC tabletIndications :Gastroesophageal reflux disease without esophagitis Take 1 tablet (40 mg) by mouth Daily 90 tablet 1 04/26/20 025 Active tiZANidine (Zanaflex) 4 MG tabletIndications :Chronic bilateral low back pain without sciatica Take 1 tablet (4 mg) by mouth as needed at bedtime for muscle spasms 30 tablet 1 09/14/20 24 025 Discontinued(T herapy completed) clopidogrel (Plavix) 75 MG tablet Take 75 mg by mouth Daily 12/30/19 25 025 Discontinued cyclobenzaprine (Flexeril) 10 MG tablet Take 10 mg by mouth in the morning and 10 mg in the evening and 10 mg before bedtime. 01/11/20 025 Discontinued(T herapy completed) amLODIPine (Norvasc) 10 MG tabletIndications :Primary hypertension Take 1 tablet (10 mg) by mouth Daily 90 tablet 1 01/26/20 025 Discontinued(R eorder) atorvastatin (Lipitor) 80 MG tabletIndications :Mixed hyperlipidemia Take 1 tablet (80 mg) by mouth at bedtime 90 tablet 1 01/26/20 025 Discontinued(R eorder) empagliflozin (Jardiance) 25 MGIndications:Typ e 2 diabetes mellitus with insulin therapy (HCC) Take 1 tablet (25 mg) by mouth in the morning. 90 tablet 1 01/26/20 025 Discontinued(R eorder) ergocalciferol (Vitamin D2) 1.25 MG (16697 UT) capsuleIndication s:Vitamin D deficiency Take 1 capsule (1.25 mg) by mouth 1 (one) time per week 12 capsule 1 01/26/20 025 Discontinued(R eorder) famotidine (Pepcid) 20 MG tabletIndications :Gastroesophageal reflux disease without esophagitis Take 1 tablet (20 mg) by mouth at bedtime 90 tablet 1 01/26/20 25 025 Discontinued(R eorder) losartan (Cozaar) 100 MG tabletIndications :Primary hypertension Take 1 tablet (100 mg) by mouth Daily Take 100 mg by mouth Daily 90 tablet 1 01/26/20 25 025 Discontinued(R eorder) pantoprazole (ProtoNix) 40 MG EC tabletIndications :Gastroesophageal reflux disease without esophagitis Take 1 tablet (40 mg) by mouth Daily 90 tablet 01/26/20 025 Discontinued(R eorder) Tirzepatide (Mounjaro) 10 MG/0.5ML solution auto-injectorIndi cations:Type 2 diabetes mellitus with insulin therapy ([facility]) Inject 10 mg as directed every 7 (seven) days 6 mL 01/26/20 025 Discontinued(T herapy completed) metFORMIN (Glucophage) 1000 MG tabletIndications :Type 2 diabetes mellitus with insulin therapy ([facility]) Take 1 tablet (1,000 mg) by mouth in the morning and 1 tablet (1,000 mg) in the evening. Take with meals. 180 tablet 01/26/20 025 Discontinued(R eorder) insulin glargine (Basaglar KwikPen) 100 UNIT/ML penIndications:Ty pe 2 diabetes mellitus with insulin therapy ([facility]) 55 units daily 60 mL 01/26/20 025 Discontinued(R eorder) Continuous Glucose Sensor (FreeStyle Maegan 3 Plus Sensor) miscIndications:T ype 2 diabetes mellitus with insulin therapy ([facility]) 1 each Daily Replace sensor every 15 days 2 each 03/08/20 losartan (Cozaar) 100 MG tabletIndications :Primary hypertension Take 1 tablet (100 mg) by mouth Daily Take 100 mg by mouth Daily 90 tablet 04/05/20 025 Discontinued(R eorder) atorvastatin (Lipitor) 80 MG tabletIndications :Mixed hyperlipidemia Take 1 tablet (80 mg) by mouth at bedtime 90 tablet 04/05/20 025 Discontinued(R eorder) clopidogrel (Plavix) 75 MG tabletIndications :Cerebral infarction, unspecified ([facility]) Take 1 tablet (75 mg) by mouth Daily 90 tablet 04/09/20 025 Discontinued(R eorder) zonisamide (Zonegran) 50 MG capsule Take 50 mg by mouth in the morning and 50 mg before bedtime. 04/05/20 025 Discontinued(T herapy completed) Active Problems Problem Noted Date Diagnosed Date Seborrheic keratoses, inflamed 04/26/2025 Assessment & Plan (04/26/2025 6:12 PM EDT): Lesions around bra strap and she can schedule a fu appt for removal Lumbar spinal stenosis 02/12/2025 Overview (02/12/2025): MRI lumbar spine 02/2025 Assessment & Plan (04/26/2025 6:09 PM EDT): Does not want to see neurosurgeon Pain levels 04/13 with radiation into legs Morbid (severe) obesity due to excess calories 0 12/12/2024 Assessment & Plan (04/26/2025 5:58 AM EDT): Discussed with patient their BMI (actual, verses recommended). We have also discussed lifestyle modifications: attempts to perform physical activity as chronic conditions allow, also to monitor dietary intake: increasing protein/fruits/veggies and lowering carb intake (unless contraindicated). Limit sodas, juices, and sugary drinks. Does take mounjaro for tx of her DM Assessment & Plan (01/25/2025 7:43 AM EDT): [...] pain without sciatica 09/14/2024 Assessment & Plan (04/26/2025 6:11 PM EDT): Under care of [facility] Pain Mgmt No help with injections, muscle relaxants and anti convulsants have caused extreme side effects Having effect on QOL, not sure what to do, does not want spine surgery Encouraged to speak to pain mgmt regarding her concerns Assessment & Plan (12/12/2024 6:23 PM EDT): Clinically is not better despite muscle relaxers and is willing to see Pain Mgmt I will also give a short supply of [place], last given in 09/27 OARRS reviewed Assessment [...] Will start bevi #1 sample given: lot [id number] exp 06/30 COVID 06/29/2024 Epigastric pain 03/07/2024 [...] yeast infection 02/04/2024 Encounter for subsequent [facility] wellness visit (AWV) in Medicare patient 12/28/2023 [...] diabetic neuropathy, unspecified 11/23/2023 Assessment & Plan (04/26/2025 5:57 AM EDT): Freq foot checks, proper fitting footwear Adequate control of DM No current meds for this Assessment & Plan (01/25/2025 7:43 AM EDT): [...] mellitus with insulin therapy Assessment & Plan (04/26/2025 6:09 PM EDT): Check blood sugars daily, notify [...] 6.9% 12/12/24 Increase mounjaro to 12.5mg weekly Assessment & Plan (01/25/2025 7:44 AM EDT): [...] sensor, and #2 samples given : lot [id number] exp 02/01/25 Assessment & Plan (12/12/2024 6:24 [...] sensor, and #2 samples given : lot [id number] exp 02/01/25 Assessment & Plan (09/14/2024 6:31 [...] Rybelsus 3mg daily, to start tomorrow Lot [id number], exp 03/04/2025 Assessment & Plan (12/28/2023 5:40 [...] without esophag itis 10/06/2023 Assessment & Plan (04/26/2025 5:58 AM EDT): Recommendations: freq small meals, nothing to eat or drink at least 2 hours prior to bed, limit caffeine, alcohol, as well as spicy foods Meds to limit or avoid if possible: NSAIDS Elevate HOB if possible Current med: pantoprazole Assessment & Plan (01/25/2025 7:43 AM EDT): [...] bed Primary hypertension 10/01/2023 Assessment & Plan (04/26/2025 5:58 AM EDT): Please check blood pressure daily and record DASH diet Limit caffeine Take medication as directed Contact office if chest pain, pressure, dizziness, shortness of breath, swelling legs Recommend slow position changes Current meds: amlodipine and losartan Assessment & Plan (01/25/2025 7:43 AM EDT): [...] Encounters Date Type Department Care Team Description 04/26/2025 5:30 PM EDT Office Visit [facility] [address] [place] [address] Judi Jimenez NP Type 2 diabetes mellitus with insulin therapy ([facility]) (Primary Dx); Primary hypertension ; Gastro-esophageal reflux disease without esophagitis; Morbid (severe) obesity due to excess calories ([facility]); Spinal stenosis of lumbar region, unspecified whether neurogenic claudication present; Chronic bilateral low back pain without sciatica; Seborrheic keratoses, inflamed; Mixed hyperlipidemia ; Cerebral infarction, unspecified ([facility]); Vitamin D deficiency; Gastroesophageal reflux disease without esophagitis 04/26/2025 Bamboo flowsheet [facility] [address] [place] [address] Judi Jimenez NP 04/24/2025 Abstract [facility] [address] [place] [address] Judi Jimenez NP 04/07/2025 Refill [facility] [address] [place] [address] Tony Judi, RELEASE OF INFORMATION CLERK Cerebral infarction, unspecified (HCC) 04/05/2025 Abstract [facility] [address] [place] [address] Judi Jimenez, RELEASE OF INFORMATION CLERK 04/04/2025 Refill [facility] [address] [place] [address] Tony Judi, RELEASE OF INFORMATION CLERK Type 2 diabetes mellitus with insulin therapy (HCC); Primary hypertension ; Mixed hyperlipidemia 04/03/2025 Refill [facility] [address] [place] [address] Graciela Jimeneza, RELEASE OF INFORMATION CLERK Mild intermittent asthma without complication (HCC) 03/13/2025 Abstract [facility] [address] [place] [address] Judi Jimenez, RELEASE OF INFORMATION CLERK 03/08/2025 Refill [facility] [address] [place] [address] Graciela Jimeneza, RELEASE OF INFORMATION CLERK Type 2 diabetes mellitus with insulin therapy (HCC) (Primary Dx) 03/08/2025 Telephone [facility] [address] [place] [address] Judi Jimenez, RUFINO 02/10/2025 Orders Only [facility] [address] [place] [address] Kelvin Arreguin MD 02/10/2025 Clinisync Result Encounter [facility] External Department Unsolicited Provider, Generic External Data from Last 3 Months Immunizations Immunization Administration [...] any clubs o r organizations such as taoism groups, unions, fraternal or athletic groups, or [...] Recorded Patient Health Questionnaire-2 Score 1 01/25/2025 [facility] - Occupational Stress Questionnaire Answer Date [...] oz) 04/26/2025 5:29 P M EDT Height 160 cm (5' 3 ) 12/12/2024 5:36 PM EDT Body Mass Index 36.35 12/12/2024 5:36 PM EDT Plan of Treatment Upcoming Encounters Date Type Department Care Team (Late st Contact Info) Description 05/29/2025 7:20 PM EDT Office Visit [facility] [address] [place] [address] Judi Jimenez, RUFINO [address] [place] [address] 08/02/2025 6:00 PM EDT Office Visit [facility] [address] [place] [place] [address] Judi Jimenez NP [address] [place] [address] 01/29/2026 5:30 PM EDT Office Visit [facility] [address] [place] [address] Judi Jimenez NP [address] [place] [address] Health Maintenance Due Date Last Done Comments CT Colonography 1955 Colonoscopy 1955 FIT 1955 FOBT 1955 Sigmoidoscopy 1955 Diabetes: Hemoglobin A1C 07/27/2025 025, 12/12/2024, 07/14/2024, Additional history exists Diabetes: Urine Protein Screening 12/29/2025 12/29/2024, 12/02/2023, 12/27/2022 Mammogram 01/06/2026 01/06/2025, 11/06, 12/02/2023, Additional history exists Medicare Annual Wellness (AWV) 01/25/2026 0 01/25/2025, 12/28/2023, 12/28/2023 Colorectal Cancer Screening 03/23/2026 FIT-DNA 03/23/2026 03/23/2023, 11/27/2019 Diabetes: Retinopathy Screening 09/05/2026 , 04/16/2023 Influenza Vaccine Discontinued 08/08/2024, , 07/08/2020 Pneumococcal Vaccine: 65+ Years Discontinued Procedures Procedure Name Priority Date/Time Associated Diagnosis Comments POCT GLYCOSYLATED HEMOGLOBIN (HGB A1C) Routine 04/26/2025 5:48 PM EDT Type 2 diabetes mellitus with insulin therapy (HCC) MRI LUMBAR SPINE WO CONTRAST Routine 02/10/2025 10:32 AM EDT MR LUMBAR SPINE WO CON 10:10 AM EDT MM TOMOSYNTHESIS SCREENING BI 01/06/2025 3:01 PM EDT from Last 3 Months or Most Recently Relevant to Health Maintenance Results * (ABNORMAL) POCT glycosylated hemoglobin (Hb A1C) docked device (04/26/2025 5:48 PM EDT) Hemoglobin A1C 7 Blood Venous blood specimen / Unknown 04/26/2025 5:48 PM EDT Judi Jimenez NP POINT OF CARE TEST ENTER/EDIT O RDERABLES Final Result * MRI LUMBAR SPINE WO CONTRAST (02/10/2025 10:32 AM EDT) Anatomical Region Laterality Modality Radiographic Joyce ging Kelvin Arreguin MD IMG XR PROCEDURES Final Re sult * MR LUMBAR SPINE WO CON (02/10/2025 10:10 AM EDT) Anatomical Region Laterality Modality Other 02/10/2025 10:1 0 AM EDT Narrative 02/10/2025 10:13 [place] [address] Magnetic Resonance Report Signed Patient: DIONNE ARREOLA MR#: [id number] : 1955 Acct:[id number] Age/Sex: 69 / F ADM Date: 02/10/25 Loc: MRI Attending Dr: Kelvin Arreguin M.D. Ordering Physician: Kelvin Arreguin M.D. Date of Service: 02/10/25 Procedure(s): MR lumbar spine wo con Accession Number(s): [id number] cc: Judi Jimenez NP; Kelvin Arreguin M.D. [facility] [place] [address] Patient Name: DIONNE ARREOLA MRN: [id number] date: 1955 Sex: F Assigned Patient Location: MRI Current Patient Location: MRI Accession/Order Number: [id number] Exam Date: 02/10/2025 10:07 Report Date: 02/10/2025 [...] Jr., D.O. 02/10/2025 10:10 AM Dictation Location: [place] [address] Electronically authenticated by: [id number] Y Date: 02/10/2025 10:10 Dictated By: Hugo Norton M.D. Signed By: 02/10/25 1013 DD/ 1010 TD/TT: Frit Maker: Procedure Note Radiology, Radiologist, MD - 02/10/2025 [place] [address] Magnetic Resonance Report Signed Patient: DIONNE ARREOLA KMR#: [id number] : 1955cct:[id number] Age/Sex: 69 / FADM Date: 02/10/25 Loc: MRI Attending Dr: Kelvin Arreguin M.D. Ordering Physician: Kelvin Arreguin M.D. Date of Service: 02/10/25 Procedure(s): MR lumbar spine wo con Accession Number(s): [id number] cc: Judi Jimenez RELEASE OF INFORMATION CLERK; Kelvin Arreguin M.D. [facility] [place] [address] Patient Name: DIONNE ARREOLA MRN: [id number] date: 1955 Sex: F Assigned Patient Location: MRI Current Patient Location: MRI Accession/Order Number: [id number] Exam Date: 02/10/2025 10:07 Report Date: 02/10/2025 [...] Jr., D.O. 02/10/2025 10:10 AM Dictation Location: [place] [address] Electronically authenticated by: [id number] Y Date: 0:10 Dictated By: Hugo Norton M.D. Signed By:02/10/25 1013 DD/ 1010 TD/TT: Frit Maker: us Generic External Data Provider [facility] Final Result * MM TOMOSYNTHESIS SCREENING BI (01/06/2025 3:01 PM EDT) Anatomical Region Laterality Modality Other 01/06/2025 3:01 PM EDT Narrative 01/06/2025 3:02 [place] [address] Mammography Report Signed Patient: DIONNE ARREOLA MR#: [id number] : 1955 Acct:[id number] Age/Sex: 69 / F ADM Date: 01/06/25 Loc: CT Attending Dr: Judi Jimenez NP Ordering Physician: Judi Jimenez NP Results: Date of Service: 01/06/25 Follow Up: Procedure(s): MM tomosynthesis screening BI Accession Number(s): [id number] cc: Judi Jimenez NP Patient Name: DIONNE ARREOLA MR#: [id number] : 1955 Exam Date: 01/06/2025 Ordering Doctor: [...] colon cancer at age 58. LOCATION: [facility] BREAST COMPOSITION: There are scattered areas [...] Signed By: 01/06/25 1502 DD/ 1501 TD/TT: Frit Maker: Procedure Note Radiology, Radiologist, MD - 01/06/2025 [place] [address] Mammography Report Signed Patient: DIONNE ARREOLA KMR#: [id number] : 1955cct:[id number] Age/Sex: 69 / FADM Date: 01/06/25 Loc: CT Attending Dr: Judi Jimenez NP Ordering Physician: Judi Jimenez NPResults: Date of Service: 01/06/25Follow Up: Procedure(s): MM tomosynthesis screening BI Accession Number(s): [id number] cc: Judi Jimenez NP Patient Name: DIONNE ARREOLA MR#: [id number] : 1955 Exam Date: 01/06/2025 Ordering Doctor: [...] colon cancer at age 58. LOCATION: [facility] BREAST COMPOSITION: There are scattered areas [...] M.D. Signed By:01/06/25 1502 DD/ 1501 TD/TT: Frit Maker: Judi Jimenez NP [facility] Final Result from Last 3 Months or Most Recently Relevant to Health Maintenance [place] [id number] Care Teams Ballast Cleaning Operator Relationship Specialty Start Date End Date Jamir Hare MD [address] [place] [address] PCP - General Family Medicine 10/30/23 Jamir Hare MD [address] [place] [address] PCP - Devoted 01/04/24 Judi Jimenez NP [address] [place] [place] [address] Nurse Practitioner Family Medicine 10/05/22
--- OUTSIDE RECORDS SUMMARY | 2025-05-03 13:31 | XMS_ITS | Encounter Summary ---
Author Organization [facility] Address [address] [place] [address] Care Team Providers Care Men'S Furnishings Salesperson Name Role Phone Judi Jimenez NP Unavailable [phone] Jamir Hare MD Primary Care Provider [phone] Jamir Hare MD Unavailable Encounter Details Date Type Department Care Team (Late st Contact Info) Description 04/26/2025 Bamboo flowsheet [facility] [address] [place] [address] Judi Jimenez NP [address] [address] Social History Tobacco Use Types Packs/Day Years [...] often do you attend chur ch or advent services? Never 12/28/2023 Do you belong to any clubs o r organizations such as orthodoxy groups, unions, fraternal or athletic groups, or [...] Recorded Patient Health Questionnaire-2 Score 1 01/25/2025 [facility] Answer Date [...] Visit [facility] [address] [place] [address] Judi Jimenez NP [address] [place] [address] 08/02/2025 6:00 PM EDT Office Visit [facility] [address] [place] [address] Judi Jimenez NP [address] [place] [address] 01/29/2026 5:30 PM EDT Office [facility] [address] [place] [address] Judi Jimenez, RUFINO [address] [place] [address] documented as of this encounter Visit Diagnoses Not on filedocumented in this encounter Additional Health Concerns Assessment Noted Time PHQ-9 Depression Total Score: 8 01/26/20 25 5:43 PM EDT documented as of this encounter Care Teams Men'S Furnishings Salesperson Relationship Specialty Start Date End Date Jamir Hare MD [address] [place] [address] PCP - General Family Medicine 10/30/23 Jamir Hare MD [address] [place] [address] PCP - Devoted 01/04/24 Judi Jimenez NP [address] [place] [address] Nurse Practitioner Family Medicine 10/05/22 documented as of this encounter
--- OUTSIDE RECORDS SUMMARY | 2025-05-03 13:31 | XMS_ITS | Encounter Summary ---
Author Organization [facility] Address [address] [place] [address] Care Team Providers Care Tourist Information Assistant Name Role Phone Judi Jimenez NP Unavailable [phone] Jamir Hare MD Primary Care Provider [phone] Jamir Hare MD Unavailable Encounter Details Date Type Department Care Team (Late st Contact Info) Description 07/18/2024 Orders Only [facility] [address] [place] [address] Judi Jimenez NP [address] [place] [address] Social History Tobacco Use Types Packs/Day Years [...] Score 1 04/18/2024 [facility] Answer Date Recorded [...] [facility] [address] [place] [address] Judi Jimenez NP [address] [place] [address] 08/02/2025 6:00 PM EDT Office Visit [facility] [address] [place] [address] Judi Jimenez NP [address] [place] [address] 01/29/2026 5:30 PM EDT Office Visit [facility] [address] [place] [address] Judi Jimenez NP [address] [place] [address] documented as of this encounter Procedures Procedure Name Priority Date/Time Associated Diagnosis Comments XR KNEE 3 VIEWS RIGHT Routine 07/18/2024 10:06 AM EDT documented in this encounter Results * XR knee 3 views right (07/18/2024 10:06 AM EDT) Anatomical Region Laterality Modality Lower Extremities, Knee Right Radiogra phic Imaging us Judi Jimenez DIRECTOR OF CATERING IMG XR PROCEDURES Final Result documented in this encounter Visit Diagnoses Not on filedocumented in this encounter Additional Health Concerns Assessment Noted Time PHQ-9 Depression Total Score: 3 12/28/19 24 5:09 PM EDT documented as of this encounter Care Teams Tourist Information Assistant Relationship Specialty Start Date End Date Jamir Hare MD [address] [place] [address] PCP - General Family Medicine 10/30/23 Jamir Hare MD [address] [place] [address] PCP - Devoted 01/04/24 Judi Jimenez NP [address] [place] [address] Nurse Practitioner Family Medicine 10/05/22 documented as of this encounter
--- OUTSIDE RECORDS SUMMARY | 2025-05-03 13:31 | XMS_ITS | Encounter Summary ---
Author Organization [facility] Address [address] [place] [address] Care Team Providers Care Dust Collector Ore Crushing Name Role Phone Judi Jimenez NP Unavailable [phone] Jamir Hare MD Primary Care Provider [phone] Jamir Hare MD Unavailable Encounter Details Date Type Department Care Team (Late st Contact Info) Description 12/29/2024 Orders Only [facility] [address] [place] [address] Judi Jimenez NP [address] [place] [address] Social History Tobacco Use Types Packs/Day Years [...] often do you attend chur ch or yarsani services? Never 12/28/2023 Do you belong to any clubs o r organizations such as sikh groups, unions, fraternal or athletic groups, or [...] Recorded Patient Health Questionnaire-2 Score 1 04/18[facility]2024 [facility] Answer Date [...] [facility] [address] [place] [address] Judi Jimenez NP [address] [place] [address] 08/02/2025 6:00 PM EDT Office Visit [facility] [address] [place] [address] Judi Jimenez NP [address] [place] [phone] 01/29/2026 5:30 PM EDT Office Visit [facility] [address] [place] [address] Judi Jimenez, RUFINO [address] [place] [address] documented as of this encounter Procedures Procedure Name Priority Date/Time Associated Diagnosis Comments SCANNED LABS Routine 12/29/2024 9:36 AM EDT documented in this encounter Results * SCANNED LABS (12/29/2024 9:36 AM EDT) us Judi Jimenez MICROGRINDER OPERATOR LAB CHG PERFORMABLES Final Resu lt documented in this encounter Visit Diagnoses Not on filedocumented in this encounter Additional Health Concerns Assessment Noted Time PHQ-9 Depression Total Score: 3 12/28/19 24 5:09 PM EDT documented as of this encounter Care Teams Dust Collector Ore Crushing Relationship Specialty Start Date End Date Jamir Hare MD [address] [place] [place] [address] PCP - General Family Medicine 10/30/23 Jamir Hare MD [address] [place] [address] PCP - Devoted 01/04/24 Judi Jimenez NP [address] [place] [address] Nurse Practitioner Family Medicine 10/05/22 documented as of this encounter
--- OUTSIDE RECORDS SUMMARY | 2025-05-03 13:31 | XMS_ITS | Encounter Summary ---
Author Organization [facility] Address [address] [place] [address] Care Team Providers Care Pizza Cook Name Role Phone Jdui Jimenez NP Unavailable [phone] Jamir Hare MD Primary Care Provider [phone] Jamir Hare MD Unavailable Reason for Visit * Reason Comments Med Change Request Encounter Details Date Type Department Care Team (Late st Contact Info) Description 09/14/2024 Refill [facility] [address] [place] [address] Judi Jimenez, RUFINO [address] [place] [address] Chronic bilateral low back pain without sciatica [...] How often do you attend chur or sabianist services? Never 12/28/2023 Do you belong to any clubs o r organizations such as tenriism groups, unions, fraternal or athletic groups, or [...] place to sleep or slept in a alf (including now)? No 12/28/2023 Comments Unknown Sex [...] in contact with her. Thanks, Judi Jimenez INDUSTRIAL CONTROLS TECHNICIAN documented in this encounter Plan of Treatment Upcoming Encounters Date Type Department Care Team (Late st Contact Info) Description 05/29/2025 7:20 PM EDT Office Visit [facility] [address] [place] [address] Judi Jimenez NP [address] [place] [address] 08/02/2025 6:00 PM EDT Office Visit [facility] [address] [place] [address] Judi Jimenez NP [address] [place] [address] 01/29/2026 5:30 PM EDT Office Visit [facility] [address] [place] [address] Judi Jimenez NP [address] [place] [address] documented as of this encounter Visit Diagnoses Diagnosis Chronic bilateral low back pain without sciatica documented in this encounter Additional Health Concerns Assessment Noted Time PHQ-9 Depression Total Score: 3 12/28/19 24 5:09 PM EDT documented as of this encounter Care Teams Pizza Cook Relationship Specialty Start Date End Date Jamir Hare MD [address] [place] [address] PCP - General Family Medicine 10/30/23 Jamir Hare MD [address] [place] [address] PCP - Devoted 01/04/24 Judi Jimenez NP [address] [place] [address] Nurse Practitioner Family Medicine 10/05/22 documented as of this encounter
--- OUTSIDE RECORDS SUMMARY | 2025-05-03 13:31 | XMS_ITS | Encounter Summary ---
Author Organization [facility] Address [address] [place] [address] Care Team Providers Care Geological Survey Field Assistant Name Role Phone Judi Jimenez NP Unavailable [phone] Jamir Hare MD Primary Care Provider [phone] Jamir Hare MD Unavailable Encounter Details Date Type Department Care Team (Late st Contact Info) Description 04/24/2025 Abstract [facility] [address] [place] [address] Judi Jimenez NP [address] [place] [address] Social History Tobacco Use Types Packs/Day Years [...] often do you attend chur ch or jew services? Never 12/28/2023 Do you belong to any clubs o r organizations such as mandaen groups, unions, fraternal or athletic groups, or [...] Recorded Patient Health Questionnaire-2 Score 1 01/25/2025 [facility] [place] - Occupational Stress Questionnaire Answer Date Recorded [...] place to sleep or slept in a retirement (including now)? No 12/28/2023 Comments Unknown Sex and Gender Information Value Date Recorded Sex Assigned at Not on file Legal Sex Female 11:14 PM EDT Gender Identity Not on file Sexual Orientation Not on file documented as of this encounter Plan of Treatment Upcoming Encounters Date Type Department Care Team (Late st Contact Info) Description 05/29/2025 7:20 PM EDT Office Visit [facility] [address] [place] [address] Judi Jimenez NP [address] [place] [phone] 08/02/2025 6:00 PM EDT Office Visit [facility] [address] [place] [address] Judi Jimenez NP [address] [place] [phone] 01/29/2026 5:30 PM EDT Office Visit [facility] [address] [place] [address] Judi Jimenez, RUFINO [address] [place] [address] documented as of this encounter Visit Diagnoses Not on filedocumented in this encounter Additional Health Concerns Assessment Noted Time PHQ-9 Depression Total Score: 8 01/26/20 25 5:43 PM EDT documented as of this encounter Care Teams Geological Survey Field Assistant Relationship Specialty Start Date End Date Jamir Hare MD [address] [place] [address] PCP - General Family Medicine 10/30/23 Jamir Hare MD [address] [place] [address] PCP - Devoted 01/04/24 Judi Jimenez NP [address] [place] [address] Nurse Practitioner Family Medicine 10/05/22 documented as of this encounter
--- OUTSIDE RECORDS SUMMARY | 2025-05-03 13:31 | XMS_ITS | Clinical Summary ---
Author Organization [facility] Address [address] [place] [address] Care Team Providers Care Dehydrogenation Converter Operator Name Role Phone Sunil, Laurent Ashraf DO Primary Care Provider [phone] Allergies Active Allergy Reactions Criticality Noted Date Comments Cephalexin Unknown 09/15/2019 Penicillins Anaphylaxis High 09/15/2019 Sulfa (Sulfonamide Antibiotics) Unknown 09/04 Medications VENTOLIN HFA 90 mcg/actuation HFA inhaler inhale 2 puffs by mouth and INTO THE LUNGS every 6 hours 0 9 Active amLODIPine (NORVASC) 10 mg tablet 0 9 Active atorvastatin (LIPITOR) 40 mg tablet 0 9 Active clarithromycin (BIAXIN) 500 mg tablet Take 500 mg by mouth two times daily. 0 9 Active DULoxetine (CYMBALTA) 30 mg delayed release capsule Take 30 mg by mouth once daily. 0 9 Active HYDROcodone-ac etaminophen (NORCO) 7.5-325 mg tablet take 1 to 2 tablets by mouth every 6 hours if needed 0 9 Active NOVOLOG FLEXPEN 100 unit/mL (3 mL) injection pen inject 6-8-10 units subcutaneously PLUS SLIDING SCALE (EXPECT UP TO 40 UNITS DAILY) 0 9 Active losartan (COZAAR) 100 mg tablet 0 9 Active metFORMIN (GLUCOPHAGE) 1,000 mg tablet Take 1,000 mg by mouth two times daily. 0 9 Active LANTUS SOLOSTAR 100 unit/mL (3 mL) injection pen INJECT 25 UNITS SUBCUTANEOUSLY AT BEDTIME 0 9 Active Active Problems No known active problems Family History Medical History Relation Name Comments Cancer Father Diabetes Father Breast cancer Mother Cancer Mother Diabetes Mother Deep vein thrombosis Sister Diabetes Sister Diabetes Son Relation Name Status Comments Father Mother Sister Son Social History Tobacco Use Types Packs/Day Years Used Date Smoking Tobacco: Every Day Cigarettes 0.5 45 Smokeless Tobacco: Never Tobacco Cessation:Ready to Q uit: Yes; Counseling Given: Yes Alcohol Use Standard Drinks/Week Comments Not Currently 0 (1 standard drink = 0.6 oz pur e alcohol) Comments Unknown Sex and Gender Information Value Date Recorded Sex Assigned at Not on file Legal Sex Female 10:37 AM EDT Gender Identity Not on file Sexual Orientation Not on file Last Filed Vital Signs Vital Sign Reading Time Taken Comments Blood Pressure 141/79 09/15/2019 8:07 AM EST Pulse 79 09/15/2019 8:07 AM EST Temperature - - Respiratory Rate - - Oxygen Saturation - - Inhaled Oxygen Concentration - - Weight 104.9 kg (231 lb 4.8 oz) 09/15/2019 8:07 AM EST Height 162.6 cm (5' 4 ) 09/15/2019 8:21 AM EST Body Mass Index 39.7 09/15/2019 8:07 AM EST Plan of Treatment Health Maintenance Due Date Last Done Comments Cologuard (average risk only) 1955 Colonoscopy 1955 Colorectal Cancer Screening 1955 FIT (average risk only) 1955 Hepatitis C Screening 1955 Alternating Mammogram/MRI 1968 DTaP,Tdap,and Td Vaccines (1 - Tdap) 12/27/1975 Breast Cancer Screening 1976 Mammogram 1976 Pneumococcal Vaccines 50year s + (1 of 1 - PCV) 2006 Zoster Recombinant Vaccines (1 of 2) 2006 DEXA Bone Density Baseline 2021 COVID-19 Vaccine ( - 2023-2 5 season) 2024 Influenza Vaccine (#1) 2025 Respiratory Syncytial Virus (RSV) or ages 60 years and older (1 - 1-dose 75+ series) 12/27/2031 Respiratory Syncytial Virus (RSV) ages 0 thru 19 months Aged Out No longer eligible based on patient's age to complete this topic Insurance [employer] MEDICARE CHOICE PPO Care Teams Dehydrogenation Converter Operator Relationship Specialty Start Date End Date Laurent Barber DO [address] [facility] [place] [phone] PCP - General Family Medicine 02/17/19
--- OUTSIDE RECORDS SUMMARY | 2025-05-03 13:31 | XMS_ITS | Encounter Summary ---
Author Organization [facility] Address [address] [place] [address] Care Team Providers Care Penology Teacher Name Role Phone Judi Jimenez NP Unavailable [phone] Jamir Hare MD Primary Care Provider [phone] Jamir Hare MD Unavailable Encounter Details Date Type Department Care Team (Late st Contact Info) Description 07/15/2024 Orders Only [facility] [address] [place] [address] Judi Jimenez NP [address] [place] [address] Social History Tobacco Use Types Packs/Day Years [...] Recorded Patient Health Questionnaire-2 Score 1 04/18/2024 [facility] [...] [facility] [address] [place] [address] Judi Jimenez NP [address] [place] [address] 08/02/2025 6:00 PM EDT Office Visit [facility] [address] [place] [address] Judi Jimenez NP [address] [place] [phone] 01/29/2026 5:30 PM EDT Office Visit [facility] [address] [place] [address] Judi Jimenez, RUFINO [address] [place] [address] documented as of this encounter Procedures Procedure Name Priority Date/Time Associated Diagnosis Comments SCANNED LABS Routine 07/15/2024 8:25 AM EDT documented in this encounter Results * SCANNED LABS (07/15/2024 8:25 AM EDT) us Judi Jimenez BOOT TRIMMER LAB CHG PERFORMABLES Final Resu lt documented in this encounter Visit Diagnoses Not on filedocumented in this encounter Additional Health Concerns Assessment Noted Time PHQ-9 Depression Total Score: 3 12/28/19 24 5:09 PM EDT documented as of this encounter Care Teams Penology Teacher Relationship Specialty Start Date End Date Jamir Hare MD [address] [place] [address] PCP - General Family Medicine 10/30/23 Jamir Hare MD [address] [place] [address] PCP - Devoted 01/04/24 Judi Jimenez NP [address] [place] [address] Nurse Practitioner Family Medicine 10/05/22 documented as of this encounter
--- NOTE | 2025-05-03 14:19 | PM.CN ---
Consult Note: HPI Data of Consult Patient: known to practice within the last 3 years Consult date: 05/03/25 Requesting Physician: Ashley Benoit NP Primary Care Provider: Judi Jimenez NP Consult Narrative Reason for consult: low back, right leg pain Narrative: 69yof who presents for evaluation. longstanding low back pain with radiation into right lower extremity. has engaged in a series of provider directed home exercises >6 weeks, without lasting benefit. recent lumbar mri consistent with multilevel degenerative changes and stenosis. pt had side effects with gabapentin, could not tolerate severe vivid dreams. pregabalin not covered by insurance. trialed one dose of zonegran with tunnel vision per pt. is not finding benefit to tramadol 50mg TID PRN although we ordered 100mg BID PRN last visit, denies side effects. currently utilizing tylenol prn. could not tolerate flexeril or baclofen due to drowsiness. cannot take nsaids, on plavix. at last visit pt declined NS consult and requested hydrocodone or something stronger than tramadol. cc:: CC: Ashley Benoit NP Review of Systems ROS Status of ROS 10 or more systems reviewed and unremarkable except as noted in history and below Meds Home Medications and Allergies Home Medications ?Medication ?Instructions ?Recorded ?Confirmed ?Type albuterol sulfate 90 mcg/actuation 2 inh inhalation Q6H PRN shortness 01/10/25 03/13/25 History aerosol inhaler (Ventolin HFA) of breath or wheezing amlodipine 10 mg tablet 10 mg PO DAILY 01/10/25 03/13/25 History atorvastatin 80 mg tablet 80 mg PO DAILY 01/10/25 03/13/25 History budesonide 160 mcg-glycopyr 9 2 inh inhalation BID 01/10/25 03/13/25 History mcg-formot 4.8 mcg/actuation HFA inhaler (Breztri Aerosphere) clopidogrel 75 mg tablet (Plavix) 75 mg PO DAILY 01/10/25 03/13/25 History cyclobenzaprine 10 mg tablet 10 mg PO TID PRN muscle spasm 01/10/25 03/13/25 History empagliflozin 25 mg tablet 25 mg PO DAILY 01/10/25 03/13/25 History (Jardiance) ergocalciferol (vitamin D2) 1,250 50,000 unit PO QWEEK 01/10/25 03/13/25 History mcg (50,000 unit) capsule (Vitamin D2) famotidine 20 mg tablet 20 mg PO DAILY 01/10/25 03/13/25 History insulin glargine 100 unit/mL 55 unit subcut DAILY 01/10/25 03/13/25 History subcutaneous solution (Lantus U-100 Insulin) losartan 100 mg tablet 100 mg PO DAILY 01/10/25 03/13/25 History metformin 1,000 mg tablet 1,000 mg PO BID 01/10/25 03/13/25 History pantoprazole 40 mg tablet,delayed 40 mg PO DAILY 01/10/25 03/13/25 History release tirzepatide 10 mg/0.5 mL 10 mg subcut QWEEK 01/10/25 03/13/25 History subcutaneous pen injector (Mounjaro) tramadol 50 mg tablet 50 mg PO BID PRN pain #60 tabs 03/13/25 Rx naloxone 4 mg/actuation nasal 4 mg intranasal Q3M PRN opioid 04/05/25 Rx spray (Narcan) overdose #2 ea tramadol 50 mg tablet 100 mg (2 x 50 mg) PO BID PRN pain 04/05/25 Rx #120 tabs zonisamide 50 mg capsule 50 mg PO BID #60 caps 04/05/25 Rx Allergies Allergy/AdvReac Type Severity Reaction Status Date / Time Penicillins Allergy Severe cardiac Verified 03/13/25 10:44 Sulfa (Sulfonamide Allergy Severe Unknown Verified 03/13/25 10:44 Antibiotics) Exam Narrative Exam Narrative: hyperalgesia to lumbar spine Constitutional Documenting provider has reviewed patient's vital signs: yes Common normals: no apparent distress, oriented x3, healthy appearing, alert and well nourished General appearance: cooperative [facility] Common normals: normocephalic, hearing grossly normal bilaterally and moist oral mucous membranes Head and scalp: normocephalic Eye Common normals: PERRL Pupil: PERRL Neck & C-Spine Common normals: full ROM General: normal visual inspection Chest Common normals: inspection of chest normal Respiratory Common normals: normal respiratory effort, no retractions and no use of accessory muscles Back & Pelvis Lumbar spine/lower back: ROM limited, pain with ROM, lumbar spinal tenderness Lumbar spinal tenderness location: L1, L2, L3, L4 and L5 and straight leg raise positive right Other: decreased sensation to right L3,4,5 strength 5/5 in BLE Neuro Common normals: oriented x3 Sensorium/orientation: alert Psych Common normals: mental status grossly normal, thought process normal, cooperative, affect normal, speech normal and activity/motor behavior normal Speech: normal speech Thought process: normal thought process Results Additional Findings Additional findings: If on a controlled substance or opioids, I have checked an [place]AR[place] report on this patient and there are no aberrancies noted in the prescribing history.??If on a controlled substance or opioid a drug screen was completed and reviewed within the last year, and if there has not been a drug screen completed we ordered one today to monitor higher risk, state monitored pain medication use. As part of providing excellent, safe, comprehensive care, the following was completed at our patient's visit: 1. A medication reconciliation and review to ensure accurate knowledge of current/active medications, including asking our patients to inform us about any [id number] medications or herbal remedies/nutritional supplements/alternative remedies. 2. A review to specifically ensure our patients have had annual screening for screening for depression, screening for tobacco use, and screening for unhealthy alcohol use. For concerning screenings had a discussion with the patient, provided patient education, and recommended follow-up with primary care provider when appropriate. If patient noted with a risk of falling, they received education on strength, gait, and balance training to prevent future risk of falling. Portions of this note may have been carried over from the previous visit and updated as appropriate. Please note this office utilizes paper charting in addition to the electronic medical record. A list of current medications, vitals, and PMH is available there as the clinical staff outside of myself do not have access to [employer] Messaging charting during the clinic day operations. As part of providing quality comprehensive care the current medications, vitals, and PMH were reviewed in the paper chart. Assessment and Plan Assessment and Plan (1) Lumbar stenosis with neurogenic claudication: Assessment and Plan: 03-13-25 right L3-4 L4-5 TFESI 50% improvement for 1 week (2) Lumbar spondylosis: Assessment and Plan: multilevel facet mediated low back pain Plan 69yof who presents for evaluation. failed conservative measures, as noted. given symptoms and exam, recommend NS consultation which pt now agreeable to. increase tramadol 100mg BID PRN moderate to severe pain, risks vs benefits reviewed. update UDS today. f/u 1 month to evaluate medication regimen
== END 2025-05-03 13:29 ==
LOC: PM 13:28
PROVIDERS: PCP Nurse Practitioner; Visit Provider Nurse Practitioner
DX: M48.062 Spinal stenosis, lumbar region with neurogenic claudication (principal); M47.816 Spondylosis without myelopathy or radiculopathy, lumbar region
CPT/HCPCS: G0463

== ENCOUNTER 2025-05-31 11:52 | Outpatient (OUT) | payer OTHER, SELFPAY ==
--- OUTSIDE RECORDS SUMMARY | 2025-05-31 11:57 | XMS_ITS | Encounter Summary ---
Author Organization [facility] Address [address] [place] [address] Care Team Providers Care Commodities Trader Name Role Phone Judi Jimenez NP Unavailable [phone] Jamir Hare MD Primary Care Provider [phone] Jamir Hare MD Unavailable Encounter Details Date Type Department Care Team (Late st Contact Info) Description 12/02/2023 Clinisync Result Encounter [facility] External Department Unsolicited Judi Jimenez NP [address] [place] [address] Social History Tobacco Use Types Packs/Day Years Used Date Smoking Tobacco: Every Day Cigarettes 0.5 34.7 Started: 10/05/1990 Alcohol Use Standard Drinks/Week Comments [...] Care Team (Late st Contact Info) Description 07/03/2025 6:30 PM EDT Office Visit [facility] [address] [place] [phone] Judi Jimenez NP [address] [place] [address] 08/02/2025 6:00 PM EDT Office Visit [facility] [address] [place] [address] Judi Jimenez NP [address] [place] [address] 01/29/2026 5:30 PM EDT Office Visit [facility] [address] [place] [address] Judi Jimenez, RUFINO [address] [place] [address] documented as of this encounter Procedures Procedure Name Priority Date/Time Associated Diagnosis Comments MM TOMOSYNTHESIS DIAGNOSTIC BI 12/02/2023 8:57 AM EST documented in this encounter Results * MM TOMOSYNTHESIS DIAGNOSTIC BI (12/02/2023 8:57 AM EST) Anatomical Region Laterality Modality Other 12/02/2023 8:57 AM EST Narrative 12/02/2023 8:57 AM EST [address] [address] Mammography Report Signed Patient: VANI ARREOLA MR#: [id number] : 1955 Acct:[id number] Age/Sex: 67 / F ADM Date: 12/02/23 Loc: MAMMO Attending Dr: Judi Jimenez NP Ordering Physician: Judi Jimenez NP Results: Date of Service: 12/02/23 Follow Up: Procedure(s): MM tomosynthesis diagnostic BI Accession Number(s): [id number] cc: Judi Jimenez NP Patient Name: VANI ARREOLA MR#: [id number] : 1955 Exam Date: 12/02/2023 Ordering Doctor: ELEANOR Jimenez LABORATORY DIRECTOR RADIOLOGY REPORT PROCEDURE: MM TOMOSYNTHESIS DIAGNOSTIC BI, [...] colon cancer at age 58. LOCATION: [facility] BREAST COMPOSITION: Scattered areas fibroglandular density. FINDINGS: DIAGNOSTIC CATEGORY 2--BENIGN FINDING. NO CHANGE FROM COMPARISON. Scattered benign-appearing calcifications are present. Scattered benign-appearing lymph nodes are present. RIGHT BREAST: No significant suspicious finding. LEFT BREAST: No significant suspicious finding. Wisner marker demarcates a palpable mass upper-outer quadrant, [...] Signed By: 12/02/23 0857 DD/ 0857 TD/TT: Warehouse Consultant: Procedure Note Radiology, Radiologist, - 12/02/2023 [place] [address] Mammography Report Signed Patient: VANI ARREOLA KMR#: [id number] : 7Acct:[id number] Age/Sex: 67 / FADM Date: 12/02/23 Loc: MAMMO Attending Dr: Judi Jimenez DISTRIBUTION SPECIALIST Ordering Physician: Aichholz,Judi NPResults: Date of Service: 12/02/23Follow Up: Procedure(s): MM tomosynthesis diagnostic BI Accession Number(s): [id number] cc: TonyJudi DISTRIBUTION SPECIALIST Patient Name: VANI ARREOLA MR#: [id number] : 1955 Exam Date: 12/02/2023 Ordering Doctor: ELEANOR Jimenez LABORATORY DIRECTOR RADIOLOGY REPORT PROCEDURE: MM TOMOSYNTHESIS DIAGNOSTIC BI, [...] colon cancer at age 58. LOCATION: [facility] BREAST COMPOSITION: Scattered areas fibroglandular density. FINDINGS: DIAGNOSTIC CATEGORY 2--BENIGN FINDING. NO CHANGE FROM COMPARISON. Scattered benign-appearing calcifications are present. Scattered benign-appearing lymph nodes are present. RIGHT BREAST: No significant suspicious finding. LEFT BREAST: No significant suspicious finding. Wisner markerdemarcates a palpable mass upper-outer quadrant, posterior [...] Andre Walden M.D. Signed By:12/02/2357 DD/ TD/TT: Warehouse Consultant: us Judi Jimenez DISTRIBUTION SPECIALIST [facility] Final Result documented in this encounter Visit Diagnoses Not on filedocumented in this encounter Care Teams Commodities Trader Relationship Specialty Start Date End Date Jamir Hare MD [address] [place] [address] PCP - General Family Medicine 10/30/23 Jamir Hare MD [address] [place] [address] PCP - Devoted 01/04/24 Judi Jimenez NP [address] [place] [address] Nurse Practitioner Family Medicine 10/05/22 documented as of this encounter
--- OUTSIDE RECORDS SUMMARY | 2025-05-31 11:57 | XMS_ITS | Encounter Summary ---
Author Organization [facility] Address [address] [place] [address] Care Team Providers Care Custom Home Installer Name Role Phone Judi Jimenez NP Unavailable [phone] Jamir Hare MD Primary Care Provider [phone] Jamir Hare MD Unavailable Encounter Details Date Type Department Care Team (Late st Contact Info) Description 08/08/2024 External Result Encounter [facility] External Department Unsolicited Judi Jimenez, RUFINO [address] [place] [address] Social History Tobacco Use Types Packs/Day Years [...] often do you attend chur ch or tenriism services? Never 12/28/2023 Do you belong to [...] Recorded Patient Health Questionnaire-2 Score 1 04/18/2024 [facility] Questionnaire Answer Date [...] 07/03/2025 6:30 PM EDT Office Visit [facility] [address] [place] [address] Judi Jimenez NP [address] [place] [address] 08/02/2025 6:00 PM EDT Office Visit [facility] [address] [place] [address] Judi Jimenez NP [address] [place] [address] 01/29/2026 5:30 PM EDT Office Visit [facility] [address] [place] [address] Judi Jimenez NP [address] [place] [address] documented as of this encounter Procedures Procedure [...] Norton Jr., D.OJennifer08/08/2024 11:45 AM Dictation Location: [place] [address] Transcribed By: [facility] 08/08/24 1145 Dictated By: Hugo Norton Jr, DO 08/08/24 1138 Signed By: <Electronically signed by Hugo Norton Jr, DO in OV> 08/08/24 1145 Narrative 08/08/2024 11:47 AM EST [facility] Main [facility]thel [address] [place] [address] Nuclear Medicine Report Signed Patient: Dionne Arreola MR#: [id number] : 1955 Acct:[id number] Age/Sex: 68 / F ADM Date: 08/08/24 Loc: Room: Type: [facility] Attending Dr: Judi Jimenez Copies to: [...] sb-mt Procedure Note Radiology, Radiologist, - 08/08/2024 [facility] Main Ethel [address] [place] [address] Nuclear Medicine Report Signed Patient: Dionne Arreola KMR#: [id number] : 7Acct:[id number] Age/Sex: 68 / FADM Date: 08/08/24 Loc: Room:Type: [facility] Attending Dr: Judi Jimenez Copies to: [...] Norton Jr., D.O.08/08/2024 11:45 AM Dictation Location: [place] [address] Transcribed By: [facility] 08/08/24 1145 Dictated By: Hugo Norton [...] documented as of this encounter Care Teams Custom Home Installer Relationship Specialty Start Date End Date Jamir Hare MD [address] [place] [address] PCP - General Family Medicine 10/30/23 Jamir Hare MD [address] [place] [address] PCP - Devoted 01/04/24 Judi Jimenez NP [address] [place] [address] Nurse Practitioner Family Medicine 10/05/22 documented as of this encounter
--- OUTSIDE RECORDS SUMMARY | 2025-05-31 11:57 | XMS_ITS | Encounter Summary ---
Author Organization [facility] Address [address] [place] [address] Care Team Providers Care Campus Recruiting Intern Name Role Phone Judi Jimenez NP Unavailable [phone] Jamir Hare MD Primary Care Provider [phone] Jamir Hare MD Unavailable Encounter Details Date Type Department Care Team (Late Contact Info) Description 11/18/2023 Abstract [facility] [address] [place] [address] Judi Jimenez NP [address] [place] [address] Social History Tobacco Use Types Packs/Day Years Used Date Smoking Tobacco: Every Day Cigarettes 0.5 34.7 Started: 10/05/1990 Tobacco Cessation:Ready to Q uit: [...] Department Care Team (Late Contact Info) Description 07/03/2025 6:30 PM EDT Office Visit [facility] [address] [place] [address] Judi Jimenez NP [address] [place] [address] 08/02/2025 6:00 PM EDT Office Visit [facility] [address] [place] [address] Judi Jimenez NP [address] [place] [address] 01/29/2026 5:30 PM EDT Office Visit [facility] [address] [place] [address] Judi Jimenez NP [address] [place] [address] documented as of this encounter Visit Diagnoses Not on filedocumented in this encounter Care Teams Campus Recruiting Intern Relationship Specialty Start Date End Date Jamir Hare MD [address] [place] [address] PCP - General Family Medicine 10/30/23 Jamir Hare MD [address] [place] [address] PCP - Devoted 01/04/24 Judi Jimenez NP [address] [place] [address] Nurse Practitioner Family Medicine 10/05/22 documented as of this encounter
--- OUTSIDE RECORDS SUMMARY | 2025-05-31 11:57 | XMS_ITS | Encounter Summary ---
Author Organization [facility] Address [address] [place] [address] Care Team Providers Care Bar Host Name Role Phone Judi Jimenez NP Unavailable [phone] Jamir Hare MD Primary Care Provider [phone] Jamir Hare MD Unavailable Encounter Details Date Type Department Care Team (Late st Contact Info) Description 07/15/2024 Orders Only [facility] [address] [place] [address] Judi Jimenez NP [address] [place] [address] Social History Tobacco Use Types Packs/Day Years [...] often do you attend chur ch or catholic services? Never 12/28/2023 Do you belong to any clubs o r organizations such as catholic groups, unions, fraternal or athletic groups, or [...] 1 04/18/2024 [facility] Questionnaire Answer Date [...] [facility] [address] [place] [address] Judi Jimenez NP [address] [place] [address] 08/02/2025 6:00 PM EDT Office Visit [facility] [address] [place] [address] Judi Jimenez NP [address] [place] [address] 01/29/2026 5:30 PM EDT Office Visit [facility] [address] [place] [address] Judi Jimenez, RUFINO [address] [place] [address] documented as of this encounter Procedures Procedure Name Priority Date/Time Associated Diagnosis Comments SCANNED LABS Routine 07/15/2024 8:25 AM EDT documented in this encounter Results * SCANNED LABS (07/15/2024 8:25 AM EDT) us Judi Jimenez HOUSE VISITOR LAB CHG PERFORMABLES Final Resu lt documented in this encounter Visit Diagnoses Not on filedocumented in this encounter Additional Health Concerns Assessment Noted Time PHQ-9 Depression Total Score: 3 12/28/19 24 5:09 PM EDT documented as of this encounter Care Teams Bar Host Relationship Specialty Start Date End Date Jamir Hare MD [address] [place] [address] PCP - General Family Medicine 10/30/23 Jamir Hare MD [address] [place] [address] PCP - Devoted 01/04/24 Judi Jimenez NP [address] [place] [place] [address] Nurse Practitioner Family Medicine 10/05/22 documented as of this encounter
--- OUTSIDE RECORDS SUMMARY | 2025-05-31 11:57 | XMS_ITS | Encounter Summary ---
Author Organization [facility] Address [address] [place] [address] Care Team Providers Care Incising Machine Operator Name Role Phone Judi Jimenez NP Unavailable [phone] Jamir Hare MD Primary Care Provider [phone] Jamir Hare MD Unavailable Encounter Details Date Type Department Care Team (Late st Contact Info) Description 02/10/2025 Orders Only [facility] [address] [place] [address] Kelvin Arreguin MD [address] [place] [address] Social History Tobacco Use Types [...] any clubs o r organizations such as confucianist groups, unions, fraternal or athletic groups, or [...] Recorded Patient Health Questionnaire-2 Score 1 01/25/2025 [facility]at [facility] - Occupational Stress Questionnaire Answer [...] [facility] [address] [place] [address] Judi Jimenez NP [address] [place] [address] 08/02/2025 6:00 PM EDT Office Visit [facility] [address] [place] [address] Judi Jimenez NP [address] [place] [address] 01/29/2026 5:30 PM EDT Office Visit [facility] [address] [place] [address] Judi Jimenez, RUFINO [address] [place] [address] documented as of this encounter Procedures Procedure [...] documented as of this encounter Care Teams Incising Machine Operator Relationship Specialty Start Date End Date Jamir Hare MD [address] [place] [address] PCP - General Family Medicine 10/30/23 Jamir Hare MD [address] [place] [address] PCP - Devoted 01/04/24 Judi Jimenez NP [address] [place] [address] Nurse Practitioner Family Medicine 10/05/22 documented as of this encounter
--- OUTSIDE RECORDS SUMMARY | 2025-05-31 11:57 | XMS_ITS | Encounter Summary ---
Author Organization [facility] Address [address] [place] [address] Care Team Providers Care Masseur/Masseuse Name Role Phone Judi Jimenez NP Unavailable [phone] Jamir Hare MD Primary Care Provider [phone] Jamir Hare MD Unavailable Encounter Details Date Type Department Care Team (Late st Contact Info) Description 04/24/[address] [facility] [address] [place] [address] Judi Jimenez NP [address] [place] [address] Social History Tobacco Use Types Packs/Day Years [...] Recorded Patient Health Questionnaire-2 Score 1 01/25/2025 [facility] Occupat ional [facility] - Occupational Stress Questionnaire Answer Date [...] 07/03/2025 6:30 PM EDT Office Visit [facility] [address] [place] [address] Judi Jimenez NP [address] [place] [address] 08/02/2025 6:00 PM EDT Office Visit [facility] [address] [place] [address] Judi Jimenez NP [address] [place] [address] 01/29/2026 5:30 PM EDT Office Visit [facility] [address] [place] [address] Judi Jimenez, RUFINO [address] [place] [address] documented as of this encounter Visit Diagnoses Not on filedocumented in this encounter Additional Health Concerns Assessment Noted Time PHQ-9 Depression Total Score: 8 01/26/20 25 5:43 PM EDT documented as of this encounter Care Teams Masseur/Masseuse Relationship Specialty Start Date End Date Jamir Hare MD [address] [place] [address] PCP - General Family Medicine 10/30/23 Jamir Hare MD [address] [place] [address] PCP - Devoted 01/04/24 Judi Jimenez NP [address] [place] [address] Nurse Practitioner Family Medicine 10/05/22 documented as of this encounter
--- OUTSIDE RECORDS SUMMARY | 2025-05-31 11:57 | XMS_ITS | Encounter Summary ---
Author Organization [facility] Address [address] [place] [address] Care Team Providers Care Extermination Supervisor Name Role Phone Judi Jimenez NP Unavailable [phone] Jamir Hare MD Primary Care Provider [phone] Jamir Hare MD Unavailable Encounter Details Date [...] often do you attend chur ch or buddhist services? Never 12/28/2023 Do you belong to any clubs o r organizations such as amish groups, unions, fraternal [...] Score 1 04/18/2024 [facility] - Occupational Stress [...] Visit [facility] [address] [place] [address] Judi Jimenez NP [address] [place] [address] 08/02/2025 6:00 PM EDT Office Visit [facility] [address] [place] [address] Judi Jimenez NP [address] [place] [address] 01/29/2026 5:30 PM EDT Office Visit [facility] [address] [place] [address] Judi Jimenez NP [address] [place] [address] documented as of this encounter Procedures Procedure Name Priority Date/Time Associated Diagnosis Comments NM BONE IMAGE 3 PHASE 09/05/2024 6:32 AM EST documented in this encounter Results * NM BONE IMAGE 3 PHASE (09/05/2024 6:32 AM EST) Anatomical Region Laterality Modality Radiographic Joyce ging 09/05/2024 6:32 AM EST Narrative 09/05/2024 6:35 [place] [address] Nuclear Medicine Report Signed Patient: VANI ARREOLA MR#: [id number] : 1955 Acct:[id number] Age/Sex: 68 / F ADM Date: 09/02/24 Loc: [facility] Attending Dr: JUAN JUSTICE METAL MILLING MACHINE OPERATOR Ordering Physician: JUAN JUSTICE NP Date of Service: 09/02/24 Procedure(s): NM bone 3 phase Accession Number(s): [id number] cc: JUAN JUSTICE METAL MILLING MACHINE OPERATOR; Judi Jimenez NP [place] [phone] Patient Name: VAIN ARREOLA MRN: [id number] date: 1955 Sex: F Assigned Patient Location: [place] Current Patient Location: Accession/Order Number: [id number] Exam Date: 09/02/2024 08:00 Report Date: 09/05/2024 06:32 At the request of: JUAN JUSTICE Procedure: NM bone 3 phase EXAMINATION: IA bone 3 phase HISTORY: STATUS POST RIGHT [...] M.D. Signed By: 09/05/2435 DD/ 1 TD/TT: Audiovisual Technician: Procedure Note Radiology, Radiologist, MD - 09/05/2024 [place] [address] Nuclear Medicine Report Signed Patient: VANI ARREOLA KMR#: [id number] : 1955cct:[id number] Age/Sex: 68 / FADM Date: 09/02/24 Loc: [place] Attending Dr: JUAN JUSTICE METAL MILLING MACHINE OPERATOR Ordering Physician: JUAN JUSTICE NP Date of Service: 09/02/24 Procedure(s): IA bone 3 phase Accession Number(s): [id number] cc: JUAN JUSTICE METAL MILLING MACHINE OPERATOR; Judi Jimenez NP [facility] [place] [address] Patient Name: VANI ARREOLA MRN: [id number] date: 1955 Sex: F Assigned Patient Location: [place] Current Patient Location: Accession/Order Number: [id number] Exam Date: 09/02/2024 08:00 Report Date: 09/05/2024 [...] likely due to degenerative changes. OTHER: Negative. NM/IA bone 3 phase IMPRESSION: 1. Mild radiotracer activity surrounding the right knee prostheticcomponents consistent with chronic remodeling; not unexpected. No specific findingsto suggest loosening. 2. Suspect degenerative changes of the left knee. No prior radiographs ofthe left knee. Electronically authenticated by: ALOK BOOKER Date: 09/05/2024 06:32 Dictated By: Alok Booker M.D. Signed By:09/05/2435 DD/ 1 TD/TT: Audiovisual Technician: us Generic External Data Provider IMG XR PROCEDURES Final Result documented in this encounter Visit Diagnoses Not on filedocumented in this encounter Additional Health Concerns Assessment Noted Time PHQ-9 Depression Total Score: 3 12/28/19 24 5:09 PM EDT documented as of this encounter Care Teams Extermination Supervisor Relationship Specialty Start Date End Date Jamir Hare MD [address] [place] [address] PCP - General Family Medicine 10/30/23 Jamir Hare MD [address] [place] [address] PCP - Devoted 01/04/24 Judi Jimenez NP [address] [place] [address] Nurse Practitioner Family Medicine 10/05/22 documented as of this encounter
--- OUTSIDE RECORDS SUMMARY | 2025-05-31 11:57 | XMS_ITS | Encounter Summary ---
Author Organization [facility] Address [address] [place] [address] Care Team Providers Care Ginseng Farmer Name Role Phone Judi Jimenez NP Unavailable [phone] Jamir Hare MD Primary Care Provider [phone] Jamir Hare MD Unavailable Encounter Details Date Type Department Care Team (Late st Contact Info) Description 07/18/2024 Orders Only [facility] [address] [place] [address] Judi Jimenez NP [address] [place] [address] Social History Tobacco Use Types Packs/Day Years [...] often do you attend chur ch or adventism services? Never 12/28/2023 Do you belong to any clubs o r organizations such as zoroastrianism groups, unions, fraternal or athletic groups, or [...] Recorded Patient Health Questionnaire-2 Score 1 04/18/2024 [facility] Questionnaire Answer Date [...] place to sleep or slept in a long term (including now)? No 12/28/2023 Comments Unknown Sex [...] [facility] [address] [place] [address] Judi Jimenez NP [address] [place] [address] 08/02/2025 6:00 PM EDT Office Visit [facility] [address] [place] [address] Judi Jimenez NP [address] [place] [address] 01/29/2026 5:30 PM EDT Office Visit [facility] [address] [place] [address] Judi Jimenez, RUFINO [address] [place] [address] documented as of this encounter Visit Diagnoses Not on filedocumented in this encounter Additional Health Concerns Assessment Noted Time PHQ-9 Depression Total Score: 3 12/28/19 24 5:09 PM EDT documented as of this encounter Care Teams Ginseng Farmer Relationship Specialty Start Date End Date Jamir Hare MD [address] [place] [address] PCP - General Family Medicine 10/30/23 Jamir Hare MD [address] [place] [address] PCP - Devoted 01/04/24 Judi Jimenez NP [address] [place] [address] Nurse Practitioner Family Medicine 10/05/22 documented as of this encounter
--- OUTSIDE RECORDS SUMMARY | 2025-05-31 11:57 | XMS_ITS | Encounter Summary ---
Author Organization [facility] Address [address] [place] [address] Care Team Providers Care Video Presentation Operator Name Role Phone Judi Jimenez NP Unavailable [phone] Jamir Hare MD Primary Care Provider [phone] Jamir Hare MD Unavailable Encounter Details Date Type Department Care Team (Late st Contact Info) Description 05/03/2025 Abstract [facility] [address] [place] [address] Judi Jimenez NP [address] [place] [address] Social History Tobacco Use Types Packs/Day Years [...] Recorded Patient Health Questionnaire-2 Score 1 01/25/2025 [facility] of Occupat ional [facility] - Occupational Stress Questionnaire Answer [...] 07/03/2025 6:30 PM EDT Office Visit [facility] [address] [place] [address] Judi Jimenez NP [address] [place] [address] 08/02/2025 6:00 PM EDT Office Visit [facility] [address] [place] [address] Judi Jimenez NP [address] [place] [address] 01/29/2026 5:30 PM EDT Office Visit [facility] [address] [place] [address] Judi Jimenez, RUFINO [address] [place] [address] documented as of this encounter Visit Diagnoses Not on filedocumented in this encounter Additional Health Concerns Assessment Noted Time PHQ-9 Depression Total Score: 8 01/26/20 25 5:43 PM EDT documented as of this encounter Care Teams Video Presentation Operator Relationship Specialty Start Date End Date Jamir Hare MD [address] [place] [address] PCP - General Family Medicine 10/30/23 Jamir Hare MD [address] [place] [address] PCP - Devoted 01/04/24 Judi Jimenez NP [address] [place] [address] Nurse Practitioner Family Medicine 10/05/22 documented as of this encounter
--- OUTSIDE RECORDS SUMMARY | 2025-05-31 11:57 | XMS_ITS | Encounter Summary ---
Author Organization [facility] Address [address] [place] [address] Care Team Providers Care Rn Lactation Name Role Phone Judi Jimenez NP Unavailable [phone] Jamir Hare MD Primary Care Provider [phone] Jamir Hare MD Unavailable Encounter Details Date Type Department Care Team (Late st Contact Info) Description 07/25/2024 Clinisync Result Encounter [facility] External Department Unsolicited Judi Jimenez NP [address] [place] [address] Social History Tobacco Use Types Packs/Day Years [...] Recorded Patient Health Questionnaire-2 Score 1 04/18/2024 [facility] Questionnaire Answer [...] 07/03/2025 6:30 PM EDT Office Visit [facility] [address] [place] [address] Judi Jimenez NP [address] [place] [address] 08/02/2025 6:00 PM EDT Office Visit [facility] [address] [place] [address] Judi Jimenez NP [address] [place] [address] 01/29/2026 5:30 PM EDT Office Visit [facility] [address] [place] [address] Judi Jimenez NP [address] [place] [address] documented as of this encounter Procedures Procedure Name Priority Date/Time Associated Diagnosis Comments CT CHEST W CONTRAST 07/25/2024 1 :26 PM EDT documented in this encounter Results * CT CHEST W CONTRAST (07/25/2024 1:26 PM EDT) Anatomical Region Laterality Modality Other 07/25/2024 1:26 PM EDT Narrative 07/25/2024 1:29 PM EDT [address] [address] [address] Scan Report Signed Patient: DIONNE ARREOLA MR#: [id number] : 1955 Acct:[id number] Age/Sex: 68 / F ADM Date: 07/22/24 Loc: CT Attending Dr: Judi Jimenez NP Ordering Physician: Judi Jimenez NP Date of Service: 07/22/24 Procedure(s): CT chest w con Accession Number(s): [id number] cc: Judi Jimenez NP [address] [address] Patient Name: DIONNE AREROLA MRN: [id number] date: 1955 Sex: F Assigned Patient Location: CT Current Patient Location: Accession/Order Number: [id number] Exam Date: 07/22/2024 09:09 Report Date: 07/25/2024 [...] M.D. Signed By: 07/25/249 DD/ 25 TD/TT: Substation Operator Helper Generation: Procedure Note Radiology, Radiologist, MD - 07/25/2024 [place] [address] CT Scan Report Signed Patient: DIONNE ARREOLA KMR#: [id number] : 1955cct:[id number] Age/Sex: 68 / FADM Date: 07/22/24 Loc: CT Attending Dr: Judi Jimenez NP Ordering Physician: Judi Jimenez NP Date of Service: 07/22/24 Procedure(s): CT chest w con Accession Number(s): [id number] cc: Judi Jimenez NP The [place] [address] Patient Name: DIONNE ARREOLA MRN: [id number] date: 1955 Sex: F Assigned Patient Location: CT Current Patient Location: Accession/Order Number: [id number] Exam Date: 07/22/2024 09:09 Report Date: 07/25/2024 [...] M.D. Signed By:07/25/24 1329 DD/ 1326 TD/TT: Substation Operator Helper Generation: us Judi Jimenez BRAKE [facility]INE[facility] Final Result documented in this encounter Visit Diagnoses Not on filedocumented in this encounter Additional Health Concerns Assessment Noted Time PHQ-9 Depression Total Score: 3 12/28/19 24 5:09 PM EDT documented as of this encounter Care Teams Rn Lactation Relationship Specialty Start Date End Date Jamir Hare MD [address] [place] [address] PCP - General Family Medicine 10/30/23 Jamir Hare MD [address] [place] [address] PCP - Devoted 01/04/24 Judi Jimenez NP [address] [place] [address] Nurse Practitioner Family Medicine 10/05/22 documented as of this encounter
--- OUTSIDE RECORDS SUMMARY | 2025-05-31 11:57 | XMS_ITS | Clinical Summary ---
Author Organization [facility] Address [address] [place] [address] Care Team Providers Care Speech Pathologist Assistant Name Role Phone Sunil, Laurent Ashraf DO Primary Care Provider [phone] Allergies Active Allergy Reactions Criticality Noted Date [...] Insurance [employer] MEDICARE CHOICE PPO Care Teams Speech Pathologist Assistant Relationship Specialty Start Date End Date Laurent Barber DO [address] [facility] [place] [address] PCP - General Family Medicine 02/17/19
--- OUTSIDE RECORDS SUMMARY | 2025-05-31 11:57 | XMS_ITS | Encounter Summary ---
Author Organization [facility] Address [address] [place] [address] Care Team Providers Care Caul Fat Puller Name Role Phone Judi Jimenez NP Unavailable [phone] Jamir Hare MD Primary Care Provider [phone] Jamir Hare MD Unavailable Reason for Visit * Reason Onset Date Comments Med Refill 05/29/2025 Encounter Details Date Type Department Care Team (Late st Contact Info) Description 05/29/2025 Refill [facility] [address] [place] [address] Judi Jimenez NP [address] [place] [address] Type 2 diabetes mellitus with insulin therapy [...] How often do you attend chur or latter-day services? Never 12/28/2023 Do you belong to any clubs o r organizations such as latter-day groups, unions, fraternal or athletic groups, or [...] Recorded Patient Health Questionnaire-2 Score 1 01/25/2025 [facility] - Occupational [...] Visit [facility] [address] [place] [address] Judi Jimenez NP [address] [place] [address] 08/02/2025 6:00 PM EDT Office Visit [facility] [address] [place] [address] Judi Jimenez NP [address] [place] [address] 01/29/2026 5:30 PM EDT Office Visit [facility] [address] [place] [address] Judi Jimenez, RUFINO [address] [place] [address] documented as of this encounter Visit Diagnoses Diagnosis Type 2 diabetes mellitus with insulin therapy (HCC) documented in this encounter Additional Health Concerns Assessment Noted Time PHQ-9 Depression Total Score: 8 01/26/20 25 5:43 PM EDT documented as of this encounter Care Teams Caul Fat Puller Relationship Specialty Start Date End Date Jmair Hare MD [address] [place] [address] PCP - General Family Medicine 10/30/23 Jamir Hare MD [address] [place] [address] PCP - Devoted 01/04/24 Judi Jimenez NP [address] [place] [address] Nurse Practitioner Family Medicine 10/05/22 documented as of this encounter
--- OUTSIDE RECORDS SUMMARY | 2025-05-31 11:57 | XMS_ITS | Encounter Summary ---
Author Organization [facility] Address [address] [place] [address] Care Team Providers Care Trial Manager Name Role Phone Judi Jimenez NP Unavailable [phone] Jamir Hare MD Primary Care Provider [phone] Jamir Hare MD Unavailable Encounter Details Date Type Department Care Team (Late st Contact Info) Description 12/02/2023 Clinisync Result Encounter [facility] External Department Unsolicited Judi Jimenez NP [address] [place] [address] Social History Tobacco Use [...] Visit [facility] [address] [place] [address] Judi Jimenez NP [address] [place] [address] 08/02/2025 6:00 PM EDT Office Visit [facility] [address] [place] [address] Judi Jimenez, RUFINO [address] [place] [address] 01/29/2026 5:30 PM EDT Office Visit [facility] [address] [place] [address] Judi Jimenez, SHEET METAL JOURNEYMAN [address] [place] [address] documented [...] 12/02/2023 10:39 AM EST us Judi Aichholz SHEET METAL JOURNEYMAN [facility] Final Result Performing Organization Address [facility] Co de Phone Number [facility] TB * [...] NP CLIN[facility] Final Result Performing Organization Address [place]/[facility] de Phone Number [facility] TB * US BREAST LT LIMITED (12/02/2023 8:57 AM EST) Anatomical Region Laterality Modality Other 12/02/2023 8:57 AM EST Narrative 12/02/2023 8:58 [place] [address] Ultrasound Report Signed Patient: VANI ARREOLA MR#: [id number] : 1955 Acct:[id number] Age/Sex: 67 / F ADM Date: 12/02/23 Loc: [facility]MO Attending Dr: Judi Jimenez NP Ordering Physician: Judi Jimenez NP Date of Service: 12/02/23 Procedure(s): US breast LT limited Accession Number(s): [id number] cc: Judi Jimenez NP Patient Name: VANI ARREOLA MR#: [id number] : 1955 Exam Date: 12/02/2023 Ordering Doctor: [...] colon cancer at age 58. LOCATION: [facility] BREAST COMPOSITION: Scattered areas fibroglandular density. FINDINGS: DIAGNOSTIC CATEGORY 2--BENIGN FINDING. NO CHANGE FROM COMPARISON. Scattered benign-appearing calcifications are present. Scattered benign-appearing lymph nodes are present. RIGHT BREAST: No significant suspicious finding. LEFT BREAST: No significant suspicious finding. [place] marker demarcates a palpable mass upper-outer quadrant, [...] Signed By: 12/02/23 0858 DD/ 0857 TD/TT: Receptionist Doctor'S Office: Procedure Note Radiology, Radiologist, - 12/02/2023 [place] [address] Ultrasound Report Signed Patient: VANI ARREOLA KMR#: [id number] : 7Acct:[id number] Age/Sex: 67 / FADM Date: 12/02/23 Loc: MAMMO Attending Dr: Judi Jimenez NP Ordering Physician: Judi Jimenez NP Date of Service: 12/02/23 Procedure(s): US breast LT limited Accession Number(s): [id number] cc: Judi Jimenez NP Patient Name: VANI ARREOLA MR#: [id number] : 1955 Exam Date: 12/02/2023 Ordering Doctor: [...] colon cancer at age 58. LOCATION: [facility] BREAST COMPOSITION: Scattered areas fibroglandular density. FINDINGS: DIAGNOSTIC CATEGORY 2--BENIGN FINDING. NO CHANGE FROM COMPARISON. Scattered benign-appearing calcifications are present. Scattered benign-appearing lymph nodes are present. RIGHT BREAST: No significant suspicious finding. LEFT BREAST: No significant suspicious finding. [place] markerdemarcates a palpable mass upper-outer quadrant, posterior [...] Andre Walden M.D. Signed By:12/02/2358 DD/ TD/TT: Receptionist Doctor'S Office: Judi Jimenez NP [facility] IMAGING Final Result * [facility] VITAMIN D 25 [place] (12/02/2023 7:41 AM EST) VITAMIN D 43.3 ng/mL [facility] Comment: <20 ng/mL Vit D deficient 20-<30 ng/mL Vit D insufficient 30-100 ng/mL Vit D sufficient >100 ng/mL Potential Toxicity 12/02/2023 7:41 AM EST 12/02/2023 7:44 AM EST Narrative CLIN[facility]NC - 12/02/2023 2:20 PM EST Judi Tony SHEET METAL JOURNEYMAN CLIN[facility] Final Result Performing Organization Address [place]/[facility] Co de Phone Number CL[facility] * [...] on filedocumented in this encounter Care Teams Trial Manager Relationship Specialty Start Date End Date Jamir Hare MD [address] [place] [address] PCP - General Family Medicine 10/30/23 Jamir Hare MD [address] [place] [address] PCP - Devoted 01/04/24 Judi Jimenez NP [address] [place] [address] Nurse Practitioner Family Medicine 10/05/22 documented as of this encounter
--- OUTSIDE RECORDS SUMMARY | 2025-05-31 11:57 | XMS_ITS | Encounter Summary ---
Author Organization [facility] Address [address] [place] [address] Care Team Providers Care Water Plumber Name Role Phone Judi Jimenez NP Unavailable [phone] Jamir Hare MD Primary Care Provider [phone] Jamir Hare MD Unavailable Encounter Details Date Type Department Care Team (Late st Contact Info) Description 12/29/2024 Orders Only [facility] [address] [place] [address] Judi Jimenez NP [address] [place] [address] Social History Tobacco Use Types Packs/Day Years [...] often do you attend chur ch or methodist services? Never 12/28/2023 Do you belong to any clubs o r organizations such as hindu groups, unions, fraternal or athletic groups, or [...] Recorded Patient Health Questionnaire-2 Score 1 04/18/2024 [facility] - Occupational Stress Questionnaire Answer Date [...] place to sleep or slept in a long-term (including now)? No 12/28/2023 Comments Unknown Sex [...] [facility] [address] [place] [address] Judi Jimenez NP [address] [place] [address] 08/02/2025 6:00 PM EDT Office Visit [facility] [address] [place] [address] Judi Jimenez NP [address] [place] [address] 01/29/2026 5:30 PM EDT Office Visit [facility] [address] [place] [address] Judi Jimenez, RUFINO [address] [place] [address] documented as of this encounter Procedures Procedure Name Priority Date/Time Associated Diagnosis Comments SCANNED LABS Routine 12/29/2024 9:36 AM EDT documented in this encounter Results * SCANNED LABS (12/29/2024 9:36 AM EDT) us Judi Jimenez STRINGING MACHINE OPERATOR LAB CHG PERFORMABLES Final Resu lt documented in this encounter Visit Diagnoses Not on filedocumented in this encounter Additional Health Concerns Assessment Noted Time PHQ-9 Depression Total Score: 3 12/28/19 24 5:09 PM EDT documented as of this encounter Care Teams Water Plumber Relationship Specialty Start Date End Date Jamir Hare MD [address] [place] [address] PCP - General Family Medicine 10/30/23 Jamir Hare MD [address] [place] [address] PCP - Devoted 01/04/24 Judi Jimenez NP [address] [place] [address] Nurse Practitioner Family Medicine 10/05/22 documented as of this encounter
--- OUTSIDE RECORDS SUMMARY | 2025-05-31 11:57 | XMS_ITS | Encounter Summary ---
Author Organization [facility] Address [address] [place] [address] Care Team Providers Care Insurance Appraiser Name Role Phone Judi Jimenez NP Unavailable [phone] Jamir Hare MD Primary Care Provider [phone] Jamir Hare MD Unavailable Reason for Visit * Reason Comments Med Change Request Encounter Details Date Type Department Care Team (Late st Contact Info) Description 09/14/2024 Refill [facility] [address] [place] [address] Judi Jimenez NP [address] [place] [address] Type 2 diabetes mellitus with insulin therapy [...] How often do you attend chur or taoist services? Never 12/28/2023 Do you belong to [...] Recorded Patient Health Questionnaire-2 Score 1 04/18/2024 [facility] - Occupational Stress Questionnaire Answer Date [...] Visit [facility] [address] [place] [address] Judi Jimenez NP [address] [place] [address] 08/02/2025 6:00 PM EDT Office Visit [facility] [address] [place] [address] Judi Jimenez NP [address] [place] [address] 01/29/2026 5:30 PM EDT Office Visit [facility] [address] [place] [address] Judi Jimenez, RUFINO [address] [place] [address] documented as of this encounter Visit Diagnoses Diagnosis Type 2 diabetes mellitus with insulin therapy (HCC) documented in this encounter Additional Health Concerns Assessment Noted Time PHQ-9 Depression Total Score: 3 12/28/19 24 5:09 PM EDT documented as of this encounter Care Teams Insurance Appraiser Relationship Specialty Start Date End Date Jamir Hare MD [address] [place] [address] PCP - General Family Medicine 10/30/23 Jamir Hare MD [address] [place] [address] PCP - Devoted 01/04/24 Judi Jimenez NP [address] [place] [address] Nurse Practitioner Family Medicine 10/05/22 documented as of this encounter
--- OUTSIDE RECORDS SUMMARY | 2025-05-31 11:57 | XMS_ITS | Clinical Summary ---
Author Organization [facility] Address [id number] [place] [id number] Care Team Providers Care Supervisor Sewing Room Name Role Phone Unavailable Primary Care Provider [...]
--- OUTSIDE RECORDS SUMMARY | 2025-05-31 11:57 | XMS_ITS | Encounter Summary ---
Author Organization [facility] Address [address] [place] [address] Care Team Providers Care Block Layer Name Role Phone Judi Jimenez NP Unavailable [phone] Jamir Hare MD Primary Care Provider [phone] Jamir Hare MD Unavailable Reason for Visit * Reason Comments Med Change Request Encounter Details Date Type Department Care Team (Late st Contact Info) Description 09/14/2024 Refill [facility] [address] [place] [address] Judi Jimenez, RUFINO [address] [place] [address] Chronic bilateral low back pain without sciatica [...] How often do you attend chur or samaritan services? Never 12/28/2023 Do you [...] Recorded Patient Health Questionnaire-2 Score 1 04/18/2024 [facility] Occupat ional Health - Occupational [...] in contact with her. Thanks, Judi Jimenez ASTROPHYSICS PROFESSOR documented in this encounter Plan of Treatment Upcoming Encounters Date Type Department Care Team (Late st Contact Info) Description 07/03/2025 6:30 PM EDT Office Visit [facility] [address] [place] [address] Judi Jimenez NP [address] [place] [address] 08/02/2025 6:00 PM EDT Office Visit [facility] [address] [place] [address] Judi Jimenez NP [address] [place] [address] 01/29/2026 5:30 PM EDT Office Visit [facility] [address] [place] [address] Judi Jimenez NP [address] [place] [address] documented as of this encounter Visit Diagnoses Diagnosis Chronic bilateral low back pain without sciatica documented in this encounter Additional Health Concerns Assessment Noted Time PHQ-9 Depression Total Score: 3 12/28/19 24 5:09 PM EDT documented as of this encounter Care Teams Block Layer Relationship Specialty Start Date End Date Jamir Hare MD [address] [place] [address] PCP - General Family Medicine 10/30/23 Jamir Hare MD [address] [place] [address] PCP - Devoted 01/04/24 Judi Jimenez NP [address] [place] [address] Nurse Practitioner Family Medicine 10/05/22 documented as of this encounter
--- OUTSIDE RECORDS SUMMARY | 2025-05-31 11:57 | XMS_ITS | Encounter Summary ---
Author Organization [facility] Address [address] [place] [address] Care Team Providers Care Oracle Solutions Architect Name Role Phone Judi Jimenez NP Unavailable [phone] Jamir Hare MD Primary Care Provider [phone] Jamir Hare MD Unavailable Encounter Details Date Type Department Care Team (Late st Contact Info) Description 07/17/2024 Clinisync Result Encounter [facility] External Department Unsolicited Judi Jimenez NP [address] [place] [address] Social History Tobacco Use Types Packs/Day Years [...] often do you attend chur ch or baptism services? Never 12/28/2023 Do you belong to [...] Recorded Patient Health Questionnaire-2 Score 1 04/18/2024 [facility] Questionnaire Answer Date [...] 07/03/2025 6:30 PM EDT Office Visit [facility] [address] [place] [address] Judi Jimenez NP [address] [place] [address] 08/02/2025 6:00 PM EDT Office Visit [facility] [address] [place] [address] Judi Jimenez NP [address] [place] [address] 01/29/2026 5:30 PM EDT Office Visit [facility] [address] [place] [address] Judi Jimenez NP [address] [place] [address] documented as of this encounter Procedures Procedure Name Priority Date/Time Associated Diagnosis Comments XR KNEE 3 VIEWS RIGHT 07/17/2024 8:57 AM EDT documented in this encounter Results * XR knee 3 views right (07/17/2024 8:57 AM EDT) Anatomical Region Laterality Modality Lower Extremities, Knee Right [facility] 07/17/2024 8:57 AM EDT Narrative 07/17/2024 9:00 AM EDT [address] [address] XRay Report Signed Patient: DIONNE ARREOLA MR#: [id number] : 1955 Acct:[id number] Age/Sex: 68 / F ADM Date: 07/15/24 Loc: [facility] Attending Dr: Judi Jimenez WASTE RECYCLER Ordering Physician: Judi Jimenez NP Date of Service: 07/15/24 Procedure(s): XR knee RT 3V Accession Number(s): [id number] cc: Judi Jimenez NP [address] [address] Patient Name: DIONNE ARREOLA MRN: [id number] date: 1955 Sex: F Assigned Patient Location: [facility] Current Patient Location: Accession/Order Number: [id number] Exam Date: 07/15/2024 16:00 Report Date: 07/17/2024 [...] M.D. Signed By: 07/17/24899 DD/ 6 TD/TT: Drying Equipment Operator: Procedure Note Radiology, Radiologist, MD - 07/17/2024 [place] [address] XRay Report Signed Patient: DIONNE ARREOLA KMR#: [id number] : 1955cct:[id number] Age/Sex: 68 / FADM Date: 07/15/24 Loc: [facility] Attending Dr: Judi Jimenez NP Ordering Physician: Judi Jimenez NP Date of Service: 07/15/24 Procedure(s): XR knee RT 3V Accession Number(s): [id number] cc: Judi Jimenez NP [place] [address] Patient Name: DIONNE ARREOLA MRN: [id number] date: 1955 Sex: F Assigned Patient Location: [facility] Current Patient Location: Accession/Order Number: [id number] Exam Date: 07/15/2024 16:00 Report Date: 07/17/2024 [...] Booker M.D. Signed By:07/17/24899 DD/ 0857 TD/TT: Drying Equipment Operator: us Judi Jimenez WASTE RECYCLER IMG XR PROCEDURES Final Result documented in this encounter Visit Diagnoses Not on filedocumented in this encounter Additional Health Concerns Assessment Noted Time PHQ-9 Depression Total Score: 3 12/28/19 24 5:09 PM EDT documented as of this encounter Care Teams Oracle Solutions Architect Relationship Specialty Start Date End Date Jamir Hare MD [address] [place] [address] PCP - General Family Medicine 10/30/23 Jamir Hare MD [address] [place] [address] PCP - Devoted 01/04/24 Judi Jimenez NP [address] [place] [address] Nurse Practitioner Family Medicine 10/05/22 documented as of this encounter
--- OUTSIDE RECORDS SUMMARY | 2025-05-31 11:57 | XMS_ITS | Encounter Summary ---
Author Organization [facility] Address [address] [place] [address] Care Team Providers Care Nutritional Services Host Name Role Phone Judi Jimenez NP Unavailable [phone] Jamir Hare MD Primary Care Provider [phone] Jamir Hare MD Unavailable Encounter Details Date Type Department Care Team (Late st Contact Info) Description 07/18/2024 Orders Only [facility] [address] [place] [address] Judi Jimenez NP [address] [place] [address] Social History Tobacco Use Types Packs/Day Years [...] any clubs o r organizations such as jew groups, unions, fraternal or athletic groups, or [...] Patient Health Questionnaire-2 Score 1 04/18/2024 [facility] [...] [facility] [address] [place] [address] Judi Jimenez NP [address] [place] [address] 08/02/2025 6:00 PM EDT Office Visit [facility] [address] [place] [address] Judi Jimenez NP [address] [place] [address] 01/29/2026 5:30 PM EDT Office Visit [facility] [address] [place] [address] Judi Jimenez NP [address] [place] [address] documented as of this encounter Procedures Procedure Name Priority Date/Time Associated Diagnosis Comments XR KNEE 3 VIEWS RIGHT Routine 07/18/2024 10:06 AM EDT documented in this encounter Results * XR knee 3 views right (07/18/2024 10:06 AM EDT) Anatomical Region Laterality Modality Lower Extremities, Knee Right Radiogra phic Imaging us Judi Jimenez ROOF BOLTER HELPER IMG XR PROCEDURES Final Result documented in this encounter Visit Diagnoses Not on filedocumented in this encounter Additional Health Concerns Assessment Noted Time PHQ-9 Depression Total Score: 3 12/28/19 24 5:09 PM EDT documented as of this encounter Care Teams Nutritional Services Host Relationship Specialty Start Date End Date Jamir Hare MD [address] [place] [address] PCP - General Family Medicine 10/30/23 Jamir Hare MD [address] [place] [address] PCP - Devoted 01/04/24 Judi Jimenez NP [address] [place] [address] Nurse Practitioner Family Medicine 10/05/22 documented as of this encounter
--- OUTSIDE RECORDS SUMMARY | 2025-05-31 11:57 | XMS_ITS | Clinical Summary ---
Author Organization [facility] Healthcare Address [address] [place] [address] Care Team Providers Care Rough And Truing Machine Operator Name Role Phone Judi Jimenez NP Unavailable [phone] Jamir Hare MD Primary Care Provider [phone] Jamir Hare MD Unavailable Allergies Active Allergy Reactions Criticality Noted Date Comments Cephalexin Unknown 09/15/2019 Penicillins 09/07/2023 Sulfa Antibiotics 09/07/2023 Medications True Metrix Blood Glucose Test test strip 1 each by Other route Daily 12/02/19 24 Active Continuous Glucose Lens Shaper Grinder (FreeStyle Maegan 3 Mouth Of [place]) deviceIndications: Type 2 diabetes mellitus with insulin therapy (HCC) 1 each Daily 1 each 09/15/20 24 025 Active Continuous Glucose Sensor (FreeStyle Maegan 3 Sensor) misc USE DIRECTED to test BLOOD SUGAR DAILY; change EVERY 14 days 11/13/19 25 Active Ventolin HFA 108 (90 Base) MCG/ACT inhalerIndications :Mild intermittent asthma without complication (HCC) Inhale 2 puffs every 6 (six) hours if needed for wheezing 18 g 1 04/03/20 25 Active Breztri Aerosphere 160-9-4.8 MCG/ACT aerosol Inhale 2 puffs in the morning and 2 puffs before bedtime. 04/20/20 25 Active traMADol (Ultram) 50 MG tablet Take 100 mg by mouth every 12 (twelve) hours if needed for moderate pain 04/05/20 25 Active amLODIPine (Norvasc) 10 MG tabletIndications: Primary hypertension Take 1 tablet (10 mg) by mouth Daily 90 tablet 04/26/20 Active atorvastatin (Lipitor) 80 MG tabletIndications: Mixed hyperlipidemia Take 1 tablet (80 mg) by mouth at bedtime 90 tablet 04/26/20 Active clopidogrel (Plavix) 75 MG tabletIndications: Cerebral infarction, unspecified (HCC) Take 1 tablet (75 mg) by mouth Daily 90 tablet 04/26/20 Active empagliflozin (Jardiance) 25 MGIndications:Type 2 diabetes mellitus with insulin therapy ([facility]) Take 1 tablet (25 mg) by mouth in the morning. 90 tablet 04/26/20 Active ergocalciferol (Vitamin D2) 1.25 MG (42004 UT) capsuleIndications :Vitamin D deficiency Take 1 capsule (1.25 mg) by mouth 1 (one) time per week 12 capsule 04/26/20 Active famotidine (Pepcid) 20 MG tabletIndications: Gastroesophageal reflux disease without esophagitis Take 1 tablet (20 mg) by mouth at bedtime 90 tablet 04/26/20 Active losartan (Cozaar) 100 MG tabletIndications: Primary hypertension Take 1 tablet (100 mg) by mouth Daily Take 100 mg by mouth Daily 90 tablet 04/26/20 Active metFORMIN (Glucophage) 1000 MG tabletIndications: Type 2 diabetes mellitus with insulin therapy ([facility]) Take 1 tablet (1,000 mg) by mouth in the morning and 1 tablet (1,000 mg) in the evening. Take with meals. 180 tablet 04/26/20 Active pantoprazole (ProtoNix) 40 MG EC tabletIndications: Gastroesophageal reflux disease without esophagitis Take 1 tablet (40 mg) by mouth Daily 90 tablet 04/26/20 025 Active insulin glargine (Basaglar KwikPen) 100 UNIT/ML penIndications:Typ e 2 diabetes mellitus with insulin therapy ([facility]) 55 units daily 60 mL 05/29/20 Active Tirzepatide (Mounjaro) 12.5 MG/0.5ML solution auto-injectorIndic ations:Type 2 diabetes mellitus with insulin therapy (HCC) Inject 12.5 mg under the skin every 7 (seven) days for 28 days 2 mL 2 04/26/20 25 025 insulin glargine (Basaglar KwikPen) 100 UNIT/ML penIndications:Typ e 2 diabetes mellitus with insulin therapy (HCC) 55 units daily 60 mL 1 04/26/20 25 025 Discontinu ed(Reorder ) Active Problems Problem [...] (04/26/2025 6:11 PM EDT): Under care of [facility] Pain Mgmt No help with [...] will also give a short supply of [place], last given in 09/27 OARRS reviewed Assessment [...] Plan (07/13/2024 6:38 PM EDT): Will start shira #1 sample given: lot [id number] exp 06/30 COVID 06/29/2024 Epigastric pain 03/07/2024 [...] yeast infection 02/04/2024 Encounter for subsequent emiliana ual wellness visit (AWV) in Medicare patient 12/28/2023 [...] sensor, and #2 samples given : lot [id number] exp 02/01/25 Assessment & Plan (12/12/2024 6:24 [...] sensor, and #2 samples given : lot [id number] exp 02/01/25 Assessment & Plan (09/14/2024 6:31 [...] Rybelsus 3mg daily, to start tomorrow Lot [id number], exp 03/04/2025 Assessment & Plan (12/28/2023 5:40 [...] Encounters Date Type Department Care Team Description 05/29/2025 Refill [facility] [address] [place] [address] Judi Jimenez NP Type 2 diabetes mellitus with insulin therapy (HCC) 05/03/2025 Abstract [facility] [address] [place] [address] Judi Jimenez NP 04/26/2025 5:30 PM EDT Office Visit [facility] [address] [place] [address] Judi Jimenez NP Type 2 diabetes mellitus with insulin therapy (HCC) (Primary Dx); Primary hypertension ; Gastro-esophageal reflux disease without esophagitis; Morbid (severe) obesity due to excess calories ([facility]); Spinal stenosis of lumbar region, unspecified whether neurogenic claudication present; Chronic bilateral low back pain without sciatica; Seborrheic keratoses, inflamed; Mixed hyperlipidemia ; Cerebral infarction, unspecified (HCC); Vitamin D deficiency; Gastroesophageal reflux disease without esophagitis 04/26/2025 Bamboo flowsheet [facility] [address] [place] [address] Judi Jimenez, INTERFACE ANALYST 04/24/2025 Abstract [facility] [address] [place] [address] Judi Jimenez, INTERFACE ANALYST 04/07/2025 Refill [facility] [address] [place] [address] Judi Jimenez, INTERFACE ANALYST Cerebral infarction, unspecified ([facility]) 04/05/2025 Abstract [facility] [address] [place] [address] Judi Jimenez, INTERFACE ANALYST 04/04/2025 Refill [facility] [address] [place] [address] Judi Jimenez, INTERFACE ANALYST Type 2 diabetes mellitus with insulin therapy (HCC); Primary hypertension ; Mixed hyperlipidemia 04/03/2025 Refill [facility] [address] [place] [address] Judi Jimenez, INTERFACE ANALYST Mild intermittent asthma without complication (HCC) 03/13/2025 Abstract [facility] [address] [place] [address] Judi Jimenez, INTERFACE ANALYST 03/08/2025 Refill [facility] [address] [place] [address] Judi Jimenez, INTERFACE ANALYST Type 2 diabetes mellitus with insulin therapy (HCC) (Primary Dx) 03/08/2025 Telephone [facility] [address] [place] [address] Judi Jimenez NP from Last 3 Months Immunizations Immunization Administration [...] often do you attend chur ch or yarsanism services? Never 12/28/2023 Do you belong to any clubs o r organizations such as hinduism groups, unions, fraternal or athletic groups, or [...] Recorded Patient Health Questionnaire-2 Score 1 01/25/2025 [facility] - [facility]ational Stress Questionnaire Answer Date Recorded [...] Visit [facility] [address] [place] [address] Judi Jimenez NP [address] [place] [address] 08/02/2025 6:00 PM EDT Office Visit [facility] [address] [place] [address] Judi Jimenez NP [address] [place] [address] 01/29/2026 5:30 PM EDT Office Visit [facility] [address] [place] [address] Judi Jimenez, RUFINO [address] [place] [address] Health Maintenance Due Date Last Done Comments [...] 2 diabetes mellitus with insulin therapy (HCC) MM TOMOSYNTHESIS SCREENING BI 01/06/2025 3:01 PM EDT from Last 3 Months or Most Recently Relevant to Health Maintenance Results * (ABNORMAL) POCT glycosylated hemoglobin (Hb A1C) docked device (04/26/2025 5:48 PM EDT) Hemoglobin A1C 7 Blood Venous blood specimen / Unknown 04/26/2025 5:48 PM EDT Judi Jimenez NP POINT OF CARE TEST ENTER/EDIT O RDERABLES Final Result * MM TOMOSYNTHESIS SCREENING BI (01/06/2025 3:01 PM EDT) Anatomical Region Laterality Modality Other 01/06/2025 3:01 PM EDT Narrative 01/06/2025 3:02 [place] [address] Mammography Report Signed Patient: DIONNE ARREOLA MR#: [id number] : 1955 Acct:[id number] Age/Sex: 69 / F ADM Date: 01/06/25 Loc: CT Attending Dr: Judi Jimenez NP Ordering Physician: Judi Jimenez NP Results: Date of Service: 01/06/25 Follow Up: Procedure(s): MM tomosynthesis screening BI Accession Number(s): [id number] cc: Judi Jimenez NP Patient Name: DIONNE ARREOLA MR#: [id number] : 1955 Exam Date: 01/06/2025 Ordering Doctor: ELEANOR Jimenez CT TECHNOLOGIST RADIOLOGY REPORT PROCEDURE: MM TOMOSYNTHESIS SCREENING BI [...] colon cancer at age 58. LOCATION: The [facility] BREAST COMPOSITION: There are scattered [...] Signed By: 01/06/25 1502 DD/ 1501 TD/TT: Facilities Operations Technician: Procedure Note Radiology, Radiologist, MD - 01/06/2025 [place] [address] Mammography Report Signed Patient: DIONNE ARREOLA KMR#: [id number] : 1955cct:[id number] Age/Sex: 69 / FADM Date: 01/06/25 Loc: CT Attending Dr: Judi Jimenez NP Ordering Physician: Judi Jimenez NPResults: Date of Service: 01/06/25Follow Up: Procedure(s): MM tomosynthesis screening BI Accession Number(s): [id number] cc: Judi Jimenez NP Patient Name: DIONNE ARREOLA MR#: [id number] : 1955 Exam Date: 01/06/2025 Ordering Doctor: ELEANOR Jimenez CT TECHNOLOGIST RADIOLOGY REPORT PROCEDURE: MM TOMOSYNTHESIS SCREENING BI [...] colon cancer at age 58. LOCATION: The [facility] BREAST COMPOSITION: There are scattered [...] M.D. Signed By:01/06/25 1502 DD/ 1501 TD/TT: Facilities Operations Technician: Judi Jimenez NP [facility] Final Result from Last 3 Months or Most Recently Relevant to Health Maintenance Insurance [employer] Care Teams Rough And Truing Machine Operator Relationship Specialty Start Date End Date Jamir Hare MD [address] [address] PCP - General Family Medicine 10/30/23 Jamir Hare MD [address] [place] [address] PCP - Devoted 01/04/24 Judi Jimenez NP [address] [place] [address] Nurse Practitioner Family Medicine 10/05/22
--- OUTSIDE RECORDS SUMMARY | 2025-05-31 11:57 | XMS_ITS | Encounter Summary ---
Author Organization [facility] Address [address] [place] [address] Care Team Providers Care Auto Porter Name Role Phone Judi Jimenez NP Unavailable [phone] Jamir Hare MD Primary Care Provider [phone] Jamir Hare MD Unavailable Encounter Details Date Type Department Care Team (Late st Contact Info) Description 04/05/2025 Abstract [facility] [address] [place] [address] Judi Jimenez NP [address] [place] [address] Social History Tobacco Use Types Packs/Day Years [...] often do you attend chur ch or yazdanism services? Never 12/28/2023 Do you belong to [...] 01/25/2025 [facility] Occupat ional [facility] - Occupational Stress Questionnaire Answer Date [...] 07/03/2025 6:30 PM EDT Office Visit [facility] [address] [place] [address] Judi Jimenez NP [address] [place] [address] 08/02/2025 6:00 PM EDT Office Visit [facility] [address] [place] [address] Judi Jimenez NP [address] [place] [address] 01/29/2026 5:30 PM EDT Office Visit [facility] [address] [place] [address] Judi Jimenez, RUFINO [address] [place] [address] documented as of this encounter Visit Diagnoses Not on filedocumented in this encounter Additional Health Concerns Assessment Noted Time PHQ-9 Depression Total Score: 8 01/26/20 25 5:43 PM EDT documented as of this encounter Care Teams Auto Porter Relationship Specialty Start Date End Date Jamir Hare MD [address] [place] [address] PCP - General Family Medicine 10/30/23 Jamir Hare MD [address] [place] [address] PCP - Devoted 01/04/24 Judi Jimenez NP [address] [place] [address] Nurse Practitioner Family Medicine 10/05/22 documented as of this encounter
--- OUTSIDE RECORDS SUMMARY | 2025-05-31 11:57 | XMS_ITS | Encounter Summary ---
Author Organization [facility] Address [address] [place] [address] Care Team Providers Care Single Pass Soil Stabilizer Operator Name Role Phone Judi Jimenez NP Unavailable [phone] Jamir Hare MD Primary Care Provider [phone] Jamir Hare MD Unavailable Encounter Details Date Type Department Care Team (Late st Contact Info) Description 03/13/2025 Abstract [facility] [address] [place] [address] Judi Jimenez NP [address] [place] [address] Social History Tobacco Use Types Packs/Day Years [...] often do you attend chur ch or mandaeism services? Never 12/28/2023 Do you belong to any clubs o r organizations such as restorationist groups, unions, fraternal or athletic groups, or [...] Recorded Patient Health Questionnaire-2 Score 1 01/25/2025 [facility] of Occupat ional [facility] - Occupational Stress Questionnaire Answer Date [...] place to sleep or slept in a assisted (including now)? No 12/28/2023 Comments Unknown Sex and Gender Information Value Date Recorded Sex Assigned at Not on file Legal Sex Female 11:14 PM EDT Gender Identity Not on file Sexual Orientation Not on file documented as of this encounter Plan of Treatment Upcoming Encounters Date Type Department Care Team (Late st Contact Info) Description 07/03/2025 6:30 PM EDT Office Visit [facility] [address] [place] [address] Judi Jimenez NP [address] [place] [address] 08/02/2025 6:00 PM EDT Office Visit [facility] [address] [place] [address] Judi Jimenez NP [address] [place] [address] 01/29/2026 5:30 PM EDT Office Visit [facility] [address] [place] [address] Judi Jimenez, RUFINO [address] [place] [address] documented as of this encounter Visit Diagnoses Not on filedocumented in this encounter Additional Health Concerns Assessment Noted Time PHQ-9 Depression Total Score: 8 01/26/20 25 5:43 PM EDT documented as of this encounter Care Teams Single Pass Soil Stabilizer Operator Relationship Specialty Start Date End Date Jamir Hare MD [address] [place] [address] PCP - General Family Medicine 10/30/23 Jamir Hare MD [address] [place] [address] PCP - Devoted 01/04/24 Judi Jimenez NP [address] [place] [address] Nurse Practitioner Family Medicine 10/05/22 documented as of this encounter
--- NOTE | 2025-05-31 12:19 | XR_ITS ---
The [address] [address] Patient Name: VANI KAUFFMAN MRN: [id number] date: 1955 Sex: F Assigned Patient Location: [facility] Current Patient Location: [facility] Accession/Order Number: [id number] Exam Date: 05/31/2025 12:10 Report Date: 05/31/2025 12:36 At the request of: BEAN CARTER NP Procedure: XR lumbar spine 6V w bending LUMBAR SPINE WITH FLEXION AND EXTENSION VIEWS - 6 views: CLINICAL HISTORY: Chronic back pain with radiation down the legs. No injury. COMPARISON: MRI 02/10/2025 AP, lateral neutral, flexion and extension and both oblique views of the lumbosacral junction were obtained. There is levoscoliotic curvature. There is no evidence of fracture. No significant displacement or instability is seen on the lateral views. There is mild upper lumbar disc space narrowing. Small endplate spurs are seen. There is mild mid and lower lumbar facet hypertrophy. No pars defect is identified. The sacroiliac joints are maintained and show mild sclerosis. There are no paraspinal soft tissue abnormalities. There is atherosclerotic disease. XR/XR lumbar spine 6V w bending IMPRESSION: SCOLIOSIS AND DEGENERATIVE CHANGES, DESCRIBED. Impression dictated by: Danna Holloway M.D. 05/31/2025 12:36 PM Dictation Location: [place] [address] Electronically authenticated by: [id number] Y Date: 05/31/2025 12:36
--- OUTSIDE RECORDS SUMMARY | 2025-05-31 12:38 | XMS_ITS | CCD ---
Author Organization [facility] Care Team Providers Care Roller Checker Name Role Phone Yash Jeffries Unavailable AICHHOLZ, PIE BOTTOMER JUDI Admitting Unavailable AICHHOLZ, PIE BOTTOMER JUDI Primary Care Unavailable AICHHOLZ, PIE BOTTOMER JUDI Consulting Unavailable AICHHOLZ, PIE BOTTOMER JUDI Attending Unavailable AICHHOLZ, PIE BOTTOMER JUDI Admitting Unavailable AICHHOLZ, PIE BOTTOMER JUDI Primary Care Unavailable AICHHOLZ, PIE BOTTOMER JUDI Consulting Unavailable AICHHOLZ, PIE BOTTOMER JUDI Attending Unavailable KASSIDY, DR YANG Admitting Unavailable HOUSE, DR YANG Primary Care Unavailable HASTINGS, DR YANG Consulting Unavailable HOUSE, DR YANG Attending Unavailable ROB, AHMAEsme Consulting Unavailable HOUSE, DR YANG Admitting Unavailable HOUSE, DR YANG Primary Care Unavailable HOUSE, DR YANG Attending Unavailable TONY JUDI Meena Primary Care Physician JUDI JIMENEZ Referring Unavailable AICKatieHOLAure, JUDI J Attending Unavailable AICHJOSE JUDI J Admitting Unavailable Aichholz MOLDING MACHINE OPERATOR, Judi Unavailable Jamir Hare MD Primary Care Provider Tony MOLDING MACHINE OPERATOR, Judi Unavailable Jamir Hare MD Unavailable Tony Judi Meena Primary Care Provider Judi Jimenez Attending Provider Tony Judi J Admitting Unavailable Tony Judi J Attending Unavailable Aichjose, Judi J Primary Care Unavailable AICHHOLZ, JUDI Attending Unavailable AICHGABYZ, JUDI Attending Unavailable AICHGABYZ, JUDI Attending Unavailable AICHJOSE, JUDI Attending Unavailable EDDA KAUR Attending Unavailable JUDI JIMENEZ Referring Unavailable JUDI JIMENEZ Attending Unavailable Rodríguez BRAY, Farzana Harding Attending Unavailable Rodríguez BRAY, Farzana Harding Attending Unavailable Allergies Allergy Classification Reported Allergen(s) Allergy Type Date of Onset Reaction(s) Facility (5 sources) penicillAMINE Drug Allergy [address] [facility] (4 sources) sulfaSALAzine Drug Allergy Unknown [facility] Other (2 sources) Penicillins Drug allergy (disorder) 4 Anaphylaxis [facility] (1 source) Sulfonamides (Antibiotic) Drug allergy (disorder) 4 [facility] (20 sources) Penicillins Propensity to adverse reactions 3 [facility] (20 sources) Sulfonamides (Antibiotic) Propensity to adverse reactions 3 [facility] (20 sources) Cephalexin Drug Allergy 9 Unknown [facility] (2 sources) Sulfonamides (Antibiotic); Translations: [Sulfa (Sulfonamide Antibiotics)] Allergy to substance [address] [facility] (1 source) penicillAMINE Drug Allergy [address] [facility] (1 source) Penicillins Drug allergy (disorder) [address] [facility] Medications Current Medications Medication Drug Class(es) Dates Sig (Normalized) Sig (Original) acetaminophen 325 mg / HYDROcodone bitartrate 5 mg oral tablet (8 sources) Opioid Agonist Start: 12-12-2024 End: 12-22-2024 take 1 tablet by mouth once HYDROcodone-aceta minophen (Mccausland) 5-325 MG tablet Indications: Chronic bilateral low back pain without sciatica Take 1 tablet by mouth every 12 (twelve) hours if needed for severe pain for up to 10 days 20 tablet 12/12/2024 12/22/2024 Active Start: 09-14-2024 End: 09-22-2024 take 1 tablet by mouth once HYDROcodone-acetaminophen (Mccausland) 5-325 MG tablet Indications: Chronic bilateral low back pain without sciatica Take 1 tablet by mouth every 12 (twelve) hours if needed for severe pain for up to 7 days 14 tablet 09/15/2024 09/22/2024 Active Start: 06-11-2018 take 1 tablet by oscar th every six hours Hydrocodone-Acetaminophen Active 1 TAB P O Every 6 hours June 10, 2018 11:00pm [id number] 200 actuat albuterol 0.09 mg/actuat metered dose inhaler (20 sources) beta2-Adrenergic Agonist Start: 01-22-2025 End: 05-03-2025 take 2 puff(s) by inhalation every six hours for wheezing Ventolin HFA 108 (90 Base) MCG/ACT inhaler Indications: Mild intermittent asthma without complication (HCC) Inhale 2 puffs every 6 (six) hours if needed for wheezing 18 g 1 04/03/2025 Active Start: 10-17-2024 End: 02-02-2025 take 2 [...] Dihydropyridine Calcium Channel Winsome Start: 03-07-2024 End: 07-25-2025 take 1 tablet by mouth once daily amLODIPine (Norvasc) 10 MG tablet Indications: Primary hypertension Take 1 tablet (10 mg) by mouth Daily 90 tablet 1 04/26/2025 07/25/2025 Active Start: 06-11-2018 End: 12-30-2023 take 1 [...] sources) HMG-CoA Reductase Inhibitor Start: 03-07-2024 End: 07-25-2025 take 1 tablet by mouth at bedtime atorvastatin (Lipitor) 80 MG tablet Indications: Mixed hyperlipidemia Take 1 tablet (80 mg) by mouth at bedtime 90 tablet 1 04/26/2025 07/25/2025 Active Start: 09-17-2023 End: 12-16-2023 take 1 [...] inhaler (20 sources) Corticosteroid, beta2-Adrenergic Agonist Start: 04-20-2025 take 2 puff(s) by inhalation in the morning Breztri Aerosphere 160-9-4.8 MCG/ACT aerosol Inhale 2 puffs in the morning and 2 puffs before bedtime. 04/20/2025 Active Start: 01-25-2025 End: 02-24-2025 take 2 puff(s) by inhalation in the morning Mzxvsef-Vtjqlwdgahj-Myygcsrvgz (Breztri Aerosphere) 160-9-4.8 MCG/ACT aerosol Indications: 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) Inhale 2 puffs in the morning and 2 puffs before bedtime. 32.1 g 1 01/25/2025 02/24/2025 Active Start: 01-16-2025 End: 02-15-2025 take 2 puff(s) by inhalation in the morning Shhlyst-Emlhtnqkfke-Lrrdbifrxt (Breztri Aerosphere) 160-9-4.8 MCG/ACT aerosol Indications: Mixed [...] 2 puff(s) by mouth in the morning Roibazo-Nzrnnsyxiie-Ihmppovrsl (Breztri Aerosphere) 160-9-4.8 MCG/ACT aerosol Indications: 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) Inhale 2 puffs in the morning and 2 puffs before bedtime. Rinse mouth after use. 10.7 g 3 07/13/2024 08/12/2024 Active clopidogrel 75 mg oral tablet (20 sources) P2Y12 Platelet Inhibitor Start: 12-29-2024 End: 07-25-2025 take 1 tablet by mouth once daily clopidogrel (Plavix) 75 MG tablet Indications: Cerebral infarction, unspecified (HCC) Take 1 tablet (75 mg) by mouth Daily 90 tablet 1 04/26/2025 07/25/2025 Active Start: 03-15-2024 End: 12-13-2024 take 1 [...] tablet 1 09/24/2023 12/23/2023 Active Continuous Glucose Arboriculturist (FreeStyle Laure 3 Cameron) device (20 sources) Start: 09-15-2024 End: 09-15-2025 Continuous Glucose Arboriculturist (FreeStyle Laure 3 Cameron) device Indications: Type 2 diabetes mellitus with insulin therapy (HCC) 1 each Daily 1 each 09/15/2024 09/15/2025 Active Start: 09-15-2024 End: 09-15-2025 Continuous Glucose Arboriculturist (FreeStyle Laure 3 Cameron) device Indications: Type 2 diabetes mellitus with insulin therapy (CMS/HCC) 1 each Daily 1 each 09/15/2024 09/15/2025 Active End: 09-15-2024 Continuous Glucose Arboriculturist (FreeStyle Laure 3 Cameron) device 1 each Daily 09/15/2024 Discontinued (Reorder) Continuous Glucose Sensor (FreeStyle Laure 3 Plus Sensor) misc (4 sources) Start: 03-08-2025 End: 04-07-2025 Continuous Glucose Sensor (FreeStyle Laure 3 Plus Sensor) misc Indications: Type 2 diabetes mellitus with insulin therapy (HCC) 1 each Daily Replace sensor every 15 days 2 each 03/08/2025 04/07/2025 Active Start: 03-08-2025 End: 04-07-2025 Continuous Glucose Sensor (F reeStyle Laure 3 Plus Sensor) misc Indications: Type 2 diabetes mellitus with insulin therapy (CMS/HCC) 1 each Daily Replace sensor every 15 days 2 each 03/08/2025 04/07/2025 Active End: 03-08-2025 Continuous Glucose Sensor (F reeStyle Laure 3 Plus Sensor) [place] 1 each Daily 03/08/2025 Discontinued (Reorder) Continuous Glucose Sensor (FreeStyle Laure 3 Sensor) [place] (20 sources) Start: 11-13-2024 Continuous Glu cose Sensor (FreeStyle Laure 3 Sensor) [place] USE DIRECTED to test BLOOD SUGAR DAILY; change EVERY 14 days 11/13/2024 Active Start: 09-15-2024 End: 10-13-2024 Continuous Glucose Sensor (F reeStyle Laure 3 Sensor) [place] Indications: Type 2 diabetes mellitus with insulin therapy (CMS/HCC) 1 each Daily for 28 days 2 each 12 09/15/2024 10/13/2024 Active End: 09-15-2024 Continuous Glucose Sensor (F reeStyle Laure 3 Sensor) [place] 1 each Daily 09/15/2024 Discontinued (Reorder) diazePAM 5 mg oral tablet (1 source) [...] Sodium-Glucose Cotransporter 2 Inhibitor Start: 03-01-2024 End: 07-25-2025 take 1 tablet by mouth in the morning empagliflozin (Jardiance) 25 MG Indications: Type 2 diabetes mellitus with insulin therapy (HCC) Take 1 tablet (25 mg) by mouth in the morning. 90 tablet 1 04/26/2025 07/25/2025 Active Start: 09-06-2021 End: 12-06-2023 take 1 tablet by mouth in the morning empagliflozin (Jardiance) 25 MG Indications: Type 2 diabetes mellitus treated without insulin ([facility]) Take 1 tablet (25 mg) by mouth in the morning. 90 tablet 1 09/07/2023 12/06/2023 Active ergocalciferol 1.25 mg oral capsule (20 sources) Provitamin D2 Compound Start: 09-19-2024 End: 07-19-2025 take 1 capsule by mouth every week ergocalciferol (Vitamin D2) 1.25 MG (55397 UT) capsule Indications: Vitamin D deficiency Take 1 capsule (1.25 mg) by mouth 1 (one) time per week 12 capsule 1 04/26/2025 07/19/2025 Active Start: 09-06-2021 take 1 capsule by mo uth every week Ergocalciferol (Vitamin D2) (Vitamin D2) 1,250 mcg (50,000 unit) capsule Active 1250 MCG PO every week September 06, 2021 12:00am On Fridays take 1 capsule by mo uth every week ergocalciferol (Vitamin D-2) 1.25 MG (45396 UT) capsule Take 1.25 mg by mouth 1 (one) time per week Active famotidine 20 mg oral tablet (20 sources) Histamine-2 Receptor Antagonist Start: 03-07-2024 End: 07-25-2025 take 1 tablet by mouth at bedtime famotidine (Pepcid) 20 MG tablet Indications: Gastroesophageal reflux disease without esophagitis Take 1 tablet (20 mg) by mouth at bedtime 90 tablet 1 04/26/2025 07/25/2025 Active Start: 11-13-2023 End: 12-13-2023 take 1 [...] (20 sources) Insulin Analog Start: 01-05-2025 End: 05-29-2025 insulin glargine (Basaglar KwikPen) 100 UNIT/ML pen Indications: Type 2 diabetes mellitus with insulin therapy (HCC) 55 units daily 60 mL 1 05/29/2025 Active Start: 04-18-2024 End: 01-05-2025 insulin glargine [...] Angiotensin 2 Receptor Winsome Start: 09-06-2021 End: 07-25-2025 take 1 tablet by mouth once daily losartan (Cozaar) 100 MG tablet Indications: Primary hypertension Take 1 tablet (100 mg) by mouth Daily Take 100 mg by mouth Daily 90 tablet 1 04/26/2025 07/25/2025 Active Start: 06-11-2018 End: 09-06-2021 take 100 mg by mouth once daily Losartan Discontinued 100 MG PO Daily June 10, 2018 11:00pm September 06, 2021 4:04pm metFORMIN hydrochloride 1000 mg oral tablet (20 sources) Biguanide Start: 03-01-2024 End: 07-25-2025 take 1 tablet by mouth in the morning metFORMIN (Glucophage) 1000 MG tablet Indications: Type 2 diabetes mellitus with insulin therapy (HCC) Take 1 tablet (1,000 mg) by mouth in the morning and 1 tablet (1,000 mg) in the evening. Take with meals. 180 tablet 1 04/26/2025 07/25/2025 Active Start: 06-11-2018 End: 12-06-2023 take 1 [...] sources) Proton Pump Inhibitor Start: 03-07-2024 End: 07-25-2025 take 1 tablet by mouth once daily pantoprazole (ProtoNix) 40 MG EC tablet Indications: Gastroesophageal reflux disease without esophagitis Take 1 tablet (40 mg) by mouth Daily 90 tablet 1 04/26/2025 07/25/2025 Active Start: 10-06-2023 End: 01-04-2024 take 1 [...] time per week 0 Active Tirzepatide (Mounjaro) 12.5 MG/0.5ML solution auto-injector (2 sources) Start: 04-26-20 End: 05-24-20 Tirzepatide (Mounjaro) 12.5 MG/0.5ML solution auto-injector Indications: Type 2 diabetes mellitus with insulin therapy (HCC) Inject 12.5 mg under the skin every 7 (seven) days for 28 days 2 mL 2 04/26/2025 05/24/2025 Active Tirzepatide (Mounjaro) 5 MG/0.5ML solution pen-injector (3 sources) Start: 06-07-20 End: 07-05-20 24 Tirzepatide (Mounjaro) 5 MG/0.5ML solution pen-injector Indications: Type 2 diabetes mellitus with insulin therapy (CMS/HCC) Inject 5 mg under the skin every 7 (seven) days for 28 days 2 mL 3 06/07/2024 07/05/2024 Active Tirzepatide (Mounjaro) 7.5 MG/0.5ML solution auto-injector (10 sources) Start: 07-13-20 End: 08-10-20 24 Tirzepatide (Mounjaro) 7.5 MG/0.5ML solution auto-injector Indications: Type 2 diabetes mellitus with insulin therapy (CMS/HCC) Inject 7.5 mg under the skin every 7 (seven) days for 28 days 2 mL 3 07/13/2024 08/10/2024 Active traMADol hydrochloride 50 mg oral tablet (4 sources) Opioid Agonist Start: 04-05-20 traMADol (Ultram) 50 MG tablet Take 100 mg by mouth every 12 (twelve) hours if needed for moderate pain 04/05/2025 Active Completed/Discontinued Medications Medication Drug Class(es) Dates Sig (Normalized) Sig (Original) azithromycin 250 mg oral tablet (1 source) Macrolide Antimicrobial Start: 05-19-2024 End: 06-07-2024 azithromycin (Zithromax) 250 MG tablet Indications: URI, acute 2 pills day #1, then 1 pill day #2-#5 6 tablet 05/19/2024 06/07/2024 Discontinued (Therapy completed) cyclobenzaprine hydrochloride 10 mg oral tablet (12 sources) Muscle Relaxant Start: 01-10-2025 End: 04-26-2025 take 1 tablet by mouth in the morning, then take 1 tablet by mouth in the evening, then take 1 tablet by mouth at bedtime cyclobenzaprine (Flexeril) 10 MG tablet Take 10 mg by mouth in the morning and 10 mg in the evening and 10 mg before bedtime. 01/10/2025 04/26/2025 Discontinued (Therapy completed) Start: 10-03-2021 take 1 tablet by oscar th three times daily as needed Flexeril 10 MG 1 tablet as needed Orally tid for 15 day(s) Sep, Active Start: 10-03-2021 DAPTOmycin 500 mg injection (1 source) Lipopeptide [...] 10, 2018 11:00pm September 06, 2021 4:05pm Tirzepatide (Mounjaro) 10 MG/0.5ML solution auto-injector (20 sources) Start: 01-25-2025 End: 04-26-2025 Tirzepatide (Mounjaro) 10 MG/0.5ML solution auto-injector Indications: Type 2 diabetes mellitus with insulin therapy (HCC) Inject 10 mg as directed every 7 (seven) days 6 mL 1 01/25/2025 04/26/2025 Discontinued (Therapy completed) Start: 01-25-2025 End: 04-19-2025 Tirzepatide (Mounjaro) 10 MG /0.5ML solution auto-injector Indications: Type 2 diabetes mellitus with insulin therapy (HCC) Inject 10 mg as directed every 7 (seven) days 6 mL 1 01/25/2025 04/19/2025 Active Start: 01-25-2025 End: 04-19-2025 Tirzepatide (Mounjaro) 10 MG /0.5ML solution auto-injector [...] Type 2 diabetes mellitus treated without insulin ([facility]) Inject 10 mg under the skin every 7 (seven) days for 28 days 2 mL 3 09/14/2024 09/14/2024 Discontinued (Reorder) tiZANidine 4 mg oral tablet (20 sources) Central alpha-2 Adrenergic Agonist Start: 09-14-2024 End: 04-26-2025 tiZANidine (Zanaflex) 4 MG tablet Indications: Chronic bilateral low back pain without sciatica Take 1 tablet (4 mg) by mouth as needed at bedtime for muscle spasms 30 tablet 1 09/14/2024 04/26/2025 Discontinued (Therapy completed) zonisamide 50 mg oral capsule (3 sources) Anti-epileptic Agent Start: 04-05-2025 End: 04-26-2025 take 1 capsule by mouth in the morning zonisamide (Zonegran) 50 MG capsule Take 50 mg by mouth in the morning and 50 mg before bedtime. 04/05/2025 04/26/2025 Discontinued (Therapy completed) Problems Active Problems Problem [...] Chronic Other nutritional; endocrine; and metabolic disorders (20 sources) Obesity caused by energy imbalance; Translations: [Morbid (severe) obesity due to excess calories] Onset: 12-12-2024 12-12-2024 Chronic Other skin disorders (5 sources) Inflamed seborrheic keratosis; Translations: [Inflamed seborrheic keratosis] Onset: 04-26-2025 04-26-2025 Episodic Spondylosis; intervertebral disc disorders; other back [...] lower leg] Onset: 07-13-2024 07-13-2024 Episodic Other screening for suspected conditions (not mental disorders or infectious disease) (20 sources) Patient encounter status; Translations: [Encounter for screening mammogram for malignant neoplasm of breast] Onset: 12-12-2024 12-12-2024 Episodic Other upper respiratory infections (20 sources) [...] Test Name Value Interpretation Reference Range Facility HbA1c (Bld) [Mass fraction]o n 04-26-2025 Interpretation and review of laboratory results Abnormal Count includes the [facility] - Hematology and Cell countson 04-26-2025 HbA1c (Bld) [Mass fraction] 7 % [facility] [place] [address] Magnetic Resonance Report Signed Patient: VANI KAUFFMAN MR#: [id number] : 1955 Acct:[id number] Age/Sex: 69 / F ADM Date: 02/10/25 Loc: MRI Attending Dr: Farzana Arreguin M.D. Ordering Physician: Farzana Arreguin M.D. Date of Service: 02/10/25 Procedure(s): MR lumbar spine wo con Accession Number(s): [id number] cc: Judi Jimenez NP; Farzana Arreguin M.D. [place] [address] Patient Name: VANI KAUFFMAN MRN: [id number] date: 1955 Sex: F Assigned Patient Location: MRI Current Patient Location: MRI Accession/Order Number: [id number] Exam Date: 02/10/2025 10:07 Report Date: 02/10/2025 [...] Jr., D.O. 02/10/2025 10:10 AM Dictation Location: [place] [address] Electronically authenticated by: [id number] Y Date: 02/10/2025 10:10 Dictated By: Hugo Norton M.D. Signed By: 02/10/25 1013 DD/ 1010 TD/TT: [employer] Farmworker: [facility] Radiology, Radiologist, MD - 02/10/2025 [place] [address] Magnetic Resonance Report Signed Patient: VANI KAUFFMAN MR#: [id number] : 1955 Acct:[id number] Age/Sex: 69 / F ADM Date: 02/10/25 Loc: MRI Attending Dr: Farzana Arreguin M.D. Ordering Physician: Farzana Arreguin M.D. Date of Service: 02/10/25 Procedure(s): MR lumbar spine wo con Accession Number(s): [id number] cc: Judi Jimenez MOLDING MACHINE OPERATOR; Farzana Arreguin M.D. The [place] [id number] Patient Name: VANI KAUFFMAN MRN: [facility]:[id number] date: 1955 Sex: F Assigned Patient Location: MRI Current Patient Location: MRI Accession/Order Number: [id number] Exam Date: 02/10/2025 10:07 Report Date: 02/10/2025 [...] stenosis. Impression dictated by: Hugo Norton Jr., DCharly 02/10/2025 10:10 AM Dictation Location: [place] [address] Electronically authenticated by: [id number] Y Date: 02/10/2025 10:10 Dictated By: Hugo Norton M.D. Signed By: 02/10/25 1013 DD/ 1010 TD/TT: [employer] Farmworker: [facility] Radiology Study observation (narrative) [facility] MR LUMBAR SPINE WO CONOrdere d By: Radiologist Radiology on 02-10-2025 [facility] Work Phone: CT CHEST W CONTRASTon [address] [address] [address] Scan Report Signed Patient: VANI KAUFFMAN MR#: [id number] : 1955 Acct:[id number] Age/Sex: 69 / F ADM Date: 01/06/25 Loc: CT Attending Dr: Judi Jimenez NP Ordering Physician: Judi Jimenez NP Date of Service: 01/06/25 Procedure(s): CT chest w con Accession Number(s): [id number] cc: Judi Jimenez NP [address] [address] Patient Name: VANI KAUFFMAN MRN: [facility]:[id number] date: 1955 Sex: F Assigned Patient Location: CT Current Patient Location: CT Accession/Order Number: [id number] Exam Date: 01/06/2025 10:12 Report Date: 01/06/2025 [...] Danna Holloway M.D.01/06/2025 10:36 AM Dictation Location: [place] [address] Electronically authenticated by: [id number] Y Date: 01/06/2025 10:36 Dictated By: Danna Holloway M.D. Signed By: 01/06/25 1039 DD/ 1036 TD/TT: [employer] Farmworker: [facility] Radiology, Radiologist, - 01/06/[address] [place] [id number] Scan Report Signed Patient: VANI KAUFFMAN MR#: [id number] : 1955 Acct:[id number] Age/Sex: 69 / F ADM Date: 01/06/25 Loc: CT Attending Dr: Judi Jimenez NP Ordering Physician: Judi Jimenez NP Date of Service: 01/06/25 Procedure(s): CT chest w con Accession Number(s): [id number] cc: Judi Jimenez NP The [address] [address] Patient Name: VANI KAUFFMAN MRN: [facility]:[id number] date: 1955 Sex: F Assigned Patient Location: CT Current Patient Location: CT Accession/Order Number: [id number] Exam Date: 01/06/2025 10:12 Report Date: 01/06/2025 [...] Danna Holloway M.D.01/06/2025 10:36 AM Dictation Location: [place] [address] Electronically authenticated by: [id number] Y Date: 01/06/2025 10:36 Dictated By: Danna Holloway M.D. Signed By: 01/06/25 1039 DD/ 1036 TD/TT: [employer] Farmworker: [facility] Radiology Study observation (narrative) [facility] CT CHEST W CONTRASTOrdered B y: Radiologist Radiology on 01-06-2025 [facility] Work Phone: MM TOMOSYNTHESIS SCREENING B Ion 01-06-2025 [place] [address] Mammography Report Signed Patient: VANI KAUFFMAN MR#: [id number] : 1955 Acct:[id number] Age/Sex: 69 / F ADM Date: 01/06/25 Loc: CT Attending Dr: Judi Jimenez NP Ordering Physician: Judi Jimenez NP Results: Date of Service: 01/06/25 Follow Up: Procedure(s): MM tomosynthesis screening BI Accession Number(s): [id number] cc: Judi Jimenez NP Patient Name: VANI KAUFFMAN MR#: [id number] : 1955 Exam Date: 01/06/2025 Ordering Doctor: [...] colon cancer at age 58. LOCATION: [facility] BREAST COMPOSITION: There are scattered areas [...] Signed By: 01/06/25 1502 DD/ 1501 TD/TT: Field C[employer] Farmworker: [facility] Radiology, Radiologist, MD - 01/06/2025 [place] [address] Mammography Report Signed Patient: VANI KAUFFMAN MR#: [id number] : 1955 Acct:[id number] Age/Sex: 69 / F ADM Date: 01/06/25 Loc: CT Attending Dr: Judi Jimenez NP Ordering Physician: Judi Jimenez NP Results: Date of Service: 01/06/25 Follow Up: Procedure(s): MM tomosynthesis screening BI Accession Number(s): [id number] cc: Judi Jimenez NP Patient Name: VANI KAUFFMAN MR#: [id number] : 1955 Exam Date: 01/06/2025 Ordering Doctor: [...] colon cancer at age 58. LOCATION: [facility] BREAST COMPOSITION: There are scattered areas [...] Signed By: 01/06/25 1502 DD/ 1501 TD/TT: Field [employer] Farmworker: [facility] Radiology Study observation (narrative) [facility] MM TOMOSYNTHESIS SCREENING B IOrdered By: Radiologist Radiology on 01-06-2025 [facility] Work Phone: HbA1c (Bld) [Mass fraction]o n 12-12-2024 Interpretation and review of laboratory results Abnormal Count includes the [facility] Laboratory - Hematology and Cell countson 12-12-2024 HbA1c (Bld) [Mass fraction] 6.90 % [facility] Capillary blood glucose lux urement by glucometer (mass/volume)Ordered By: Judi Jimenez on 08-08-2024 Glucose [Mass/Vol] 135 mg/dL Normal [facility] Comment on above: Random Glucose Refer ence Range is dependent on time and content of last meal. Glucose of more than 200 mg/dL in a nonstressed, ambulatory subject supports the diagnosis of Diabetes Mellitus. Result Comment: [place] Glucose Reference Range is dependent on time and content of last meal. Glucose of more than 200 mg/dL in a nonstressed, ambulatory subject supports the diagnosis of Diabetes Mellitus. PERFORMED BY: [place] [address] PATHOLOGIST SITE ACQUISITION SPECIALIST YUE CONWAY M.D. Performed By: #### G LULS #### Point of Care testing , GLUCOSE POCT GLUCOMETERSon 1 10-08-2023 Glucose [Mass/Vol] 135 mg/dL [facility] Comment on above: Random Glucose Refer ence Range is dependent on time and content of last meal. Glucose of more than 200 mg/dL in a nonstressed, ambulatory subject supports the diagnosis of Diabetes Mellitus. [facility] PET tumor init tx strat sb-m ton 08-08-2024 [facility] Main [place] [id number] Nuclear Medicine Report Signed Patient: Vani Kauffman MR#: [id number] : 1955 Acct:[id number] Age/Sex: 68 / F ADM Date: 08/08/24 Loc: Room: Type: [facility] Attending Dr: Judi Jimenez Copies to: Hugo [...] recommended. Impression dictated by: Hugo Norton Jr., DJenniferOJennifer08/08/2024 11:45 AM Dictation Location: [place] [address] Transcribed By: [facility] 08/08/24 1145 Dictated By: Hugo Norton Jr, DO 08/08/24 1138 Signed By: 08/08/24 1145 Normal The [facility] TB UA (CLEAN/CATCH) MICROS OPIC IF INDICATEon 08-04-2024 BILIRUBIN URINE Negative NEGATIVE [facility] BLOOD URINE SMALL Abnormal NEGATIVE [facility] Clarity (U) CLEAR CLEAR [facility] Color (U) LT. RED YELLOW [facility] GLUCOSE URINE UA >=1000 Abnormal NEGATIVE mg/dL [facility] Interpretation and review of laboratory results Abnormal [facility] Ketones Ql (U) Negative NEGATIVE mg[facility] Leukocyte esterase Test strip Ql (U) MODERATE Abnormal NEGATIVE [facility] NITRITE URINE Negative NEGATIVE [facility] pH (U) 6.5 [pH] 5.0 - 9.0 [facility] PROTEIN URINE Negative NEG/TRACE mg/dL [facility] SPECIFIC GRAVITY URINE <=1.005 Abnormal 1.005 - 1.025 [facility] URINE MICROSCOPIC INDICATED YES [facility] UROBILINOGEN URINE 0.2 EU/dL 0.2 - 1.0 EU/dL [facility] Consent for Treatmenton Consent for Treatment [id number] 09#1.00TIFF Normal [facility] EMG Electromyographyon 09-11 EMG Electromyography [id number] 241#1.00TIFF Normal [facility] Neurology Forms- Text[employer] Neurology Forms- Text [id number]. [id number]#1.00TIFF Normal [facility] Physician Orderon 06-03-2023 Physician Order [id number] E8#1.00CD:127 Normal [facility] LIVER PROFILEon 01-17-2023 Albumin [Mass/Vol] 3.4 g/dL Normal 3.4-5.0 [facility] Comment on above: Performed By: #### C BC #### [facility] [address] [place] [address] Dr. Willam Novoa Albumin/Globulin [Mass ratio] 0.9 {ratio} Normal [facility] Comment on above: Performed By: #### C BC #### [facility] [address] [place] [address] Dr. Willam Novoa ALP [Catalytic activity/Vol] 116 U/L Normal 46-116 [facility] Comment on above: Performed By: #### C BC #### [facility] [address] [place] [address] Dr. Willam Novoa ALT [Catalytic activity/Vol] 35 U/L Normal 14-59 [facility] Comment on above: Performed By: #### C BC #### [facility] [address] [place] [address] Dr. Willam Novoa AST [Catalytic activity/Vol] 14 U/L Critically low 15-37 [facility] Comment on above: Performed By: #### C BC #### [facility] [address] [place] [address] Dr. Willam Novoa BILI, CONJUGATED 0.1 mg/dL Normal 0.0-0.2 [facility] Comment on above: Performed By: #### C BC #### [facility] [address] [place] [address] Dr. Willam Novoa Bilirubin [Mass/Vol] 0.3 mg/dL Normal 0.2-1.0 [facility] Comment on above: Performed By: #### C BC #### [facility] [address] [place] [address] Dr. Willam Novoa Globulin (S) [Mass/Vol] 4.0 g/dL Normal [facility] Comment on above: Performed By: #### C BC #### [facility] [address] [address] [address] Willam Novoa Protein [Mass/Vol] 7.4 g/dL Normal 6.4-8.2 [facility] Comment on above: Performed By: #### C BC #### [facility] [address] [place] [address] Dr. Willam Novoa CBC AUTO DIFFon 12-27-2022 BASO # 0.1 103/ul Normal 0.0-0.1 [facility] Comment on above: Performed By: #### C BC #### [facility] [address] [place] [address] Dr. Willam Novoa Basophils/100 WBC (Bld) 1.0 % Normal 0.2-2.0 [facility] Comment on above: Performed By: #### C BC #### [facility] [address] [place] [address] Dr. Willam Novoa EO # 0.3 103/ul Normal 0.0-0.7 [facility] Comment on above: Performed By: #### C BC #### [facility] [address] [place] [address] Dr. Willam Novoa Eosinophils/100 WBC (Bld) 3.6 % Normal 0.9-7.0 [facility] Comment on above: Performed By: #### C BC #### [facility] [address] [place] [address] Dr. Willam Novoa Erythrocyte distribution width (RBC) [Ratio] 13.2 % Normal 11.0-15.0 [facility] Comment on above: Performed By: #### C BC #### [facility] [address] [place] [address] Dr. Willam Novoa Hematocrit (Bld) [Volume fraction] 45.4 % Normal 36.0-48.0 [facility] Comment on above: Performed By: #### C BC #### [facility] [address] [place] [address] Dr. Willam Novoa Hemoglobin (Bld) [Mass/Vol] 14.4 g/dL Normal 12.0-16.0 [facility] Comment on above: Performed By: #### C BC #### [facility] [address] [place] [address] Dr. Willam Novoa IG # 0.03 10e3/ul Normal 0.00-0.03 [facility] Comment on above: Performed By: #### C BC #### [facility] [address] [place] [address] Dr. Willam Novoa IG % 0.4 % Normal 0.0-0.5 [facility] Comment on above: Performed By: #### C BC #### [facility] [address] [place] [address] Dr. Willam Novoa LYMPH # 2.5 103/ul Normal 1.2-3.8 [facility] Comment on above: Performed By: #### C BC #### [facility] [address] [place] [address] Dr. Willam Novoa Lymphocytes/100 WBC (Bld) 29.9 % Normal 20.5-60.0 [facility] Comment on above: Performed By: #### C BC #### [facility] [address] [place] [address] Dr. Willam Novoa MANUAL DIFF REQ NO Normal [facility] Comment on above: Performed By: #### C BC #### [facility] [address] [place] [address] Dr. Willam Novoa MCH (RBC) [Entitic mass] 29.9 pg Normal 26.7-34.0 [facility] Comment on above: Performed By: #### C BC #### [facility] [address] [place] [address] Dr. Willam Novoa MCHC (RBC) [Mass/Vol] 31.7 g/dL Normal 29.9-35.2 [facility] Comment on above: Performed By: #### C BC #### [facility] [address] [place] [address] Dr. Willam Novoa MCV (RBC) [Entitic vol] 94.4 fL Normal 81.0-99.0 [facility] Comment on above: Performed By: #### C BC #### [facility] [address] [place] [address] Dr. Willam Novoa MONO # 0.8 103/ul Normal 0.3-0.8 [facility] Comment on above: Performed By: #### C BC #### [facility] [address] [place] [address] Dr. Willam Novoa Monocytes/100 WBC (Bld) 9.2 % Normal 1.7-12.0 [facility] Comment on above: Performed By: #### C BC #### [facility] [address] [place] [address] Dr. Willam Novoa NEUT # 4.7 103/ul Normal 1.4-6.5 [facility] Comment on above: Performed By: #### C BC #### [facility] [address] [place] [address] Dr. Willam Novoa Neutrophils/100 WBC (Bld) 55.9 % Normal 43.0-75.0 [facility] Comment on above: Performed By: #### C BC #### [facility] [address] [place] [address] Dr. Willam Novoa Platelet mean volume (Bld) [Entitic vol] 9.4 fL Critically low 9.5-13.5 [facility] Comment on above: Performed By: #### C BC #### [facility] [address] [place] [address] Dr. Willam Novoa PLT 311 103/ul Normal 150-450 [facility] Comment on above: Performed By: #### C BC #### [facility] [address] [place] [address] Dr. Willam Novoa RBC 4.81 106/ul Normal 4.20-5.40 [facility] Comment on above: Performed By: #### C BC #### [facility] [address] [place] [address] Dr. Willam Novoa WBC 8.4 103/ul Normal 4.0-11.0 [facility] Comment on above: Performed By: #### C BC #### [facility] [address] [place] [address] Dr. Willam Novoa FREE T4on 12-27-2022 Free T4 [Mass/Vol] 1.13 ng/dL Normal 0.76-1.46 [facility] Comment on above: Performed By: #### C BC #### [facility] [address] [address] [address] Willam Novoa GLYCOHEMOGLOBIN A1Con 2022 ADA RECOMMENDATION SEE BELOW Normal [facility] Comment on above: Result Comment: ADA RECOMMENDED LIMIT 4.0 - 6.0 ADA THERAPEUTIC TARGET < 7.0 ACTION SUGGESTED > 7.0 Performed By: #### C BC #### [facility] [address] [address] [address] Willam Novoa Glucose [Mass/Vol] 258 mg/dL Normal [facility] Comment on above: Performed By: #### C BC #### [facility] [address] [place] [address] Dr. Willam Novoa HbA1c (Bld) [Mass fraction] 10.6 % Critically high 4.5-6.2 [facility] Comment on above: Performed By: #### C BC #### [facility] [address] [place] [address] Dr. Willam Novoa LIPID PROFILEon 12-27-2022 CHOL-HDL RATIO NORM SEE BELOW Normal [facility] Comment on above: Result Comment: 3.3 - 4.4 LOW RISK 4.4 - 7.1 AVERAGE RISK 7.1 - 11.0 MODERATE RISK >11.0 HIGH RISK Performed By: #### C BC #### [facility] [address] [place] [address] Dr. Willam Novoa Cholesterol [Mass/Vol] 158 mg/dL Normal <=200 [facility] Comment on above: Performed By: #### C BC #### [facility] [address] [place] [address] Dr. Willam Novoa Cholesterol in HDL [Mass/Vol] 51 mg/dL Normal 40-60 [facility] Comment on above: Performed By: #### C BC #### [facility] [address] [place] [address] Dr. Willam Novoa Cholesterol in LDL [Mass/Vol] 81.8 mg/dL Normal [facility] Comment on above: Performed By: #### C BC #### [facility] [address] [address] [address] Willam Novoa Cholesterol.total/Xiomy sterol in HDL [Mass ratio] 3.1 {ratio} Normal [facility] Comment on above: Performed By: #### C BC #### [facility] [address] [address] [address] Willam Novoa HDL NORMAL > or = 60 mg/dl - LOW CARDIOVASCULAR RISK <40 mg/dl - HIGH CARDIOVASCULAR RISK Normal [facility] Comment on above: Performed By: #### C BC #### [facility] [address] [place] [address] Dr. Willam Novoa LDL CALC NORMAL SEE BELOW Normal [facility] Comment on above: Result Comment: <100 mg/dl OPTIMAL 100 - 129 mg/dl NEAR OR ABOVE OPTIMAL 130 - 159 mg/dl BORDERLINE HIGH 160 - 189 mg/dl HIGH >190 mg/dl VERY HIGH Performed By: #### C BC #### [facility] [address] [place] [address] Dr. Willam Novoa Triglyceride [Mass/Vol] 126 mg/dL Normal <=150 [facility] Comment on above: Performed By: #### C BC #### [facility] [address] [place] [address] Dr. Willam Novoa VLDL CALC 25.2 mg/dL Normal [facility] Comment on above: Performed By: #### C BC #### [facility] [address] [place] [address] Dr. Willam Novoa MICROALBUMIN, RAND URon 12-04 mALB 1.3 mg/L Normal <=30.0 [facility] Comment on above: Performed By: #### M ALBR #### [facility] [address] [place] [address] Dr. Willam Novoa PROF 14(COMP METB)on 023 Albumin [Mass/Vol] 3.9 g/dL Normal 3.4-5.0 [facility] Comment on above: Performed By: #### C MP, LIPID, TSH #### [facility] [address] [address] [address] Willam Novoa Albumin/Globulin [Mass ratio] 1.0 {ratio} Normal [facility] Comment on above: Performed By: #### C MP, LIPID, TSH #### [facility] [address] [address] [address] Willam Novoa ALP [Catalytic activity/Vol] 161 U/L Critically high 46-116 [facility] Comment on above: Performed By: #### C MP, LIPID, TSH #### [facility] [address] [address] [address] Willam Novoa ALT [Catalytic activity/Vol] 29 U/L Normal 14-59 [facility] Comment on above: Performed By: #### C MP, LIPID, TSH #### [facility] [address] [address] [address] Willam Novoa Anion gap [Moles/Vol] 10.7 mmol/L Normal [facility] Comment on above: Performed By: #### C MP, LIPID, TSH #### [facility] [address] [address] [address] Willam Novoa AST [Catalytic activity/Vol] 10 U/L Critically low 15-37 [facility] Comment on above: Performed By: #### C MP, LIPID, TSH #### [facility] [address] [address] [address] Willam Novoa Bilirubin [Mass/Vol] 0.3 mg/dL Normal 0.2-1.0 [facility] Comment on above: Performed By: #### C MP, LIPID, TSH #### [facility] [address] [address] [address] Willam Novoa Calcium [Mass/Vol] 9.4 mg/dL Normal 8.5-10.1 [facility] Comment on above: Performed By: #### C MP, LIPID, TSH #### [facility] [address] [address] [address] Willam Novoa Chloride [Moles/Vol] 103 mmol/L Normal 98-107 [facility] Comment on above: Performed By: #### C MP, LIPID, TSH #### [facility] [address] [address] [address] Willam Novoa CO2 [Moles/Vol] 28.3 mmol/L Normal 21.0-32.0 [facility] Comment on above: Performed By: #### C MP, LIPID, TSH #### [facility] [address] [place] [address] Dr. Willam Novoa Creatinine [Mass/Vol] 0.72 mg/dL Normal 0.55-1.02 [facility] Comment on above: Performed By: #### C MP, LIPID, TSH #### [facility] [address] [place] [address] Dr. Willam Novoa EGFR-AF AFGHAN >60 Normal >=60 [facility] Comment on above: Performed By: #### C MP, LIPID, TSH #### [facility] [address] [place] [address] Dr. Willam Novoa EGFR-NON AF AFGHAN >60 Normal >=60 [facility] Comment on above: Performed By: #### C MP, LIPID, TSH #### [facility] [address] [place] [address] Dr. Willam Novoa Globulin (S) [Mass/Vol] 3.8 g/dL Normal [facility] Comment on above: Performed By: #### C MP, LIPID, TSH #### [facility] [address] [place] [address] Dr. Willam Novoa Glucose [Mass/Vol] 287 mg/dL Critically high 74-106 [facility] Comment on above: Performed By: #### C MP, LIPID, TSH #### [facility] [address] [place] [address] Dr. Willam Novoa Potassium [Moles/Vol] 4.0 mmol/L Normal 3.5-5.1 [facility] Comment on above: Performed By: #### C MP, LIPID, TSH #### [facility] [address] [place] [address] Dr. Willam Novoa Protein [Mass/Vol] 7.7 g/dL Normal 6.4-8.[address] [facility] Comment on above: Performed By: #### C MP, LIPID, TSH #### [facility] [address] [place] [address] Dr. Willam Novoa Sodium [Moles/Vol] 138 mmol/L Normal 136-[address] [facility] Comment on above: Performed By: #### C MP, LIPID, TSH #### [facility] [address] [place] [address] Dr. Willam Novoa Urea nitrogen [Mass/Vol] 13.0 mg/dL Normal 7.0-18.0 [facility] Comment on above: Performed By: #### C MP, LIPID, TSH #### [facility] [address] [place] [address] Dr. Willam Novoa Urea nitrogen/Creatinine [Mass ratio] 18.1 mg/mg Normal [facility] Comment on above: Performed By: #### C MP, LIPID, TSH #### [facility] [address] [place] [address] Dr. Willam Novoa TSHon 12-27-2022 TSH 1.361 uIU/mL Normal 0.358-3.740 [facility] Comment on above: Performed By: #### C MP, LIPID, TSH #### [facility] [address] [place] [address] Dr. Willam Novoa UA RANDOM W/MICROSCOPICon BACTERIA NONE SEEN Normal NONE SEEN [facility] Comment on above: Performed By: #### U AMIC #### [facility] [address] [place] [address] Dr. Willam Novoa Bilirubin Ql (U) Negative Normal NEGATIVE [facility] Comment on above: Performed By: #### U AMIC #### [facility] [address] [place] [address] Dr. Willam Novoa CAST NONE SEEN Normal NONE SEEN [facility] Comment on above: Performed By: #### U AMIC #### [facility] [address] [place] [address] Dr. Willam Novoa Clarity (U) CLEAR Normal CLEAR [facility] Comment on above: Performed By: #### U AMIC #### [facility] [address] [address] [address] Willam Novoa Color (U) LT. YELLOW Normal YELLOW [facility] Comment on above: Performed By: #### U AMIC #### [facility] [address] [address] [address] Willam Novoa Crystals LM Nom (Urine sed) NONE SEEN Normal NONE SEEN [facility] Comment on above: Performed By: #### U AMIC #### [facility] [address] [address] [address] Willam Novoa Epithelial cells LM Ql (Urine sed) RARE Normal NONE SEEN /RARE [facility] Comment on above: Performed By: #### U AMIC #### [facility] [address] [place] [address] Dr. Willam Novoa Glucose Ql (U) >1000 Abnormal NEGATIVE [facility] Comment on above: Performed By: #### U AMIC #### [facility] [address] [address] [address] Willam Novoa Hemoglobin Ql (U) Negative Normal NEGATIVE [facility] Comment on above: Performed By: #### U AMIC #### [facility] [address] [place] [address] Dr. Willam Novoa Ketones Ql (U) Negative Normal NEGATIVE [facility] Comment on above: Performed By: #### U AMIC #### [facility] [address] [address] [address] Willam Novoa LEUKOCYTES Negative Normal NEGATIVE [facility] Comment on above: Performed By: #### U AMIC #### [facility] [address] [address] [address] Willam Novoa MUCOUS NONE SEEN Normal NONE SEEN [facility] Comment on above: Performed By: #### U AMIC #### [facility] [address] [place] [address] Dr. Willam Novoa Nitrite Ql (U) Negative Normal NEGATIVE [facility] Comment on above: Performed By: #### U AMIC #### [facility] [address] [address] [address] Willam Novoa pH (U) 6.0 [pH] Normal 5-9 [facility] Comment on above: Performed By: #### U AMIC #### [facility] [address] [place] [address] Dr. Willam Novoa RBC NONE SEEN Abnormal 0-2 [facility] Comment on above: Performed By: #### U AMIC #### [facility] [address] [place] [address] Dr. Willam Novoa SPEC GRAVITY <=1.005 Abnormal 1.005-<=1.025 [facility] Comment on above: Performed By: #### U AMIC #### [facility] [address] [place] [address] Dr. Willam Novoa UA PROTEIN Negative Normal NEGATIVE/ TRACE [facility] Comment on above: Performed By: #### U AMIC #### [facility] [address] [place] [address] Dr. Willam Novoa Urobilinogen Qn (U) 0.2 {Kalpesh'U}/dL Normal 0.2 - 1. 0 [facility] Comment on above: Performed By: #### U AMIC #### [facility] [address] [place] [address] Dr. Willam Novoa WBC NONE SEEN Normal NONE SEEN [facility] Comment on above: Performed By: #### U AMIC #### [facility] [address] [place] [address] Dr. Willam Novoa MICROALBUMIN URINEon 022 Albumin, Urine 5.9 ug/mL Normal Not Estab. [facility] Comment on above: Performed By: #### M ALBLC #### [facility] [address] [place] [address] Dr. Willam Novoa T4 LABCORPon 05-25-2022 T4 [Mass/Vol] 8.3 ug/dL Normal 4.5-12.0 [facility] Comment on above: Performed By: #### C BC #### [facility] [address] [place] [address] Dr. Willam Novoa CBC AUTO DIFFon 05-24-2022 BASO # 0.1 103/ul Normal 0.0-0.1 [facility] Comment on above: Performed By: #### C BC #### [facility] [address] [place] [address] Dr. Willam Novoa Basophils/100 WBC (Bld) 0.9 % Normal 0.2-2.0 [facility] Comment on above: Performed By: #### C BC #### [facility] [address] [place] [address] Dr. Willam Novoa EO # 0.3 103/ul Normal 0.0-0.7 [facility] Comment on above: Performed By: #### C BC #### [facility] [address] [place] [address] Dr. Willam Novoa Eosinophils/100 WBC (Bld) 3.5 % Normal 0.9-7.0 [facility] Comment on above: Performed By: #### C BC #### [facility] [address] [place] [address] Dr. Willam Novoa Erythrocyte distribution width (RBC) [Ratio] 13.2 % Normal 11.0-15.0 [facility] Comment on above: Performed By: #### C BC #### [facility] [address] [place] [address] Dr. Wlilam Novoa Hematocrit (Bld) [Volume fraction] 45.7 % Normal 36.0-48.0 [facility] Comment on above: Performed By: #### C BC #### [facility] [address] [place] [address] Dr. Willam Novoa Hemoglobin (Bld) [Mass/Vol] 14.3 g/dL Normal 12.0-16.0 [facility] Comment on above: Performed By: #### C BC #### [facility] [address] [place] [address] Dr. Willam Novoa IG # 0.03 10e3/ul Normal 0.00-0.03 [facility] Comment on above: Performed By: #### C BC #### [facility] [address] [place] [address] Dr. Willam Novoa IG % 0.3 % Normal 0.0-0.5 [facility] Comment on above: Performed By: #### C BC #### [facility] [address] [place] [address] Dr. Willam Novoa LYMPH # 3.5 103/ul Normal 1.2-3.8 [facility] Comment on above: Performed By: #### C BC #### [facility] [address] [place] [address] Dr. Willam Novoa Lymphocytes/100 WBC (Bld) 38.7 % Normal 20.5-60.0 [facility] Comment on above: Performed By: #### C BC #### [facility] [address] [place] [address] Dr. Willam Novoa MANUAL DIFF REQ NO Normal [facility] Comment on above: Performed By: #### C BC #### [facility] [address] [place] [address] Dr. Willam Novoa MCH (RBC) [Entitic mass] 29.8 pg Normal 26.7-34.0 [facility] Comment on above: Performed By: #### C BC #### [facility] [address] [place] [address] Dr. Willam Novoa MCHC (RBC) [Mass/Vol] 31.3 g/dL Normal 29.9-35.2 [facility] Comment on above: Performed By: #### C BC #### [facility] [address] [place] [address] Dr. Willam Novoa MCV (RBC) [Entitic vol] 95.2 fL Normal 81.0-99.0 [facility] Comment on above: Performed By: #### C BC #### [facility] [address] [place] [address] Dr. Willam Novoa MONO # 0.8 103/ul Normal 0.3-0.8 [facility] Comment on above: Performed By: #### C BC #### [facility] [address] [place] [address] Dr. Willam Novoa Monocytes/100 WBC (Bld) 9.3 % Normal 1.7-12.0 [facility] Comment on above: Performed By: #### C BC #### [facility] [address] [place] [address] Dr. Willam Novoa NEUT # 4.2 103/ul Normal 1.4-6.5 [facility] Comment on above: Performed By: #### C BC #### [facility] [address] [place] [address] Dr. Willam Novoa Neutrophils/100 WBC (Bld) 47.3 % Normal 43.0-75.0 [facility] Comment on above: Performed By: #### C BC #### [facility] [address] [place] [address] Dr. Willam Novoa Platelet mean volume (Bld) [Entitic vol] 9.3 fL Critically low 9.5-13.5 [facility] Comment on above: Performed By: #### C BC #### [facility] [address] [place] [address] Dr. Willam Nvooa PLT 295 103/ul Normal 150-450 [facility] Comment on above: Performed By: #### C BC #### [facility] [address] [place] [address] Dr. Willam Novoa RBC 4.80 106/ul Normal 4.20-5.40 [facility] Comment on above: Performed By: #### C BC #### [facility] [address] [place] [address] Dr. Willam Novoa WBC 8.9 103/ul Normal 4.0-11.0 [facility] Comment on above: Performed By: #### C BC #### [facility] [address] [place] [address] Dr. Willam Novoa GLYCOHEMOGLOBIN A1Con 2021 ADA RECOMMENDATION SEE BELOW Normal [facility] Comment on above: Result Comment: ADA RECOMMENDED LIMIT 4.0 - 6.0 ADA THERAPEUTIC TARGET < 7.0 ACTION SUGGESTED > 7.0 Performed By: #### A 1C #### [facility] [address] [place] [address] Dr. Willam Novoa Glucose [Mass/Vol] 200 mg/dL Normal [facility] Comment on above: Performed By: #### A 1C #### [facility] [address] [place] [address] Dr. Willam Novoa HbA1c (Bld) [Mass fraction] 8.6 % Critically high 4.5-6.2 [facility] Comment on above: Performed By: #### A 1C #### [facility] [address] [place] [address] Dr. Willam Novoa PROF 14(COMP METB)on 022 Albumin [Mass/Vol] 4.1 g/dL Normal 3.4-5.0 [facility] Comment on above: Performed By: #### T SH, CMP #### [facility] [address] [place] [address] Dr. Willam Novoa Albumin/Globulin [Mass ratio] 1.2 {ratio} Normal [facility] Comment on above: Performed By: #### T SH, CMP #### [facility] [address] [place] [address] Dr. Willam Novoa ALP [Catalytic activity/Vol] 121 U/L Critically high 46-116 [facility] Comment on above: Performed By: #### T SH, CMP #### [facility] [address] [place] [address] Dr. Willam Novoa ALT [Catalytic activity/Vol] 31 U/L Normal 14-59 [facility] Comment on above: Performed By: #### T SH, CMP #### [facility] [address] [place] [address] Dr. Willam Novoa Anion gap [Moles/Vol] 15.9 mmol/L Normal [facility] Comment on above: Performed By: #### T SH, CMP #### [facility] [address] [place] [address] Dr. Willam Novoa AST [Catalytic activity/Vol] 13 U/L Critically low 15-37 [facility] Comment on above: Performed By: #### T SH, CMP #### [facility] [address] [address] [address] Willam Novoa Bilirubin [Mass/Vol] 0.4 mg/dL Normal 0.2-1.0 [facility] Comment on above: Performed By: #### T SH, CMP #### [facility] [address] [place] [address] Dr. Willam Novoa Calcium [Mass/Vol] 9.3 mg/dL Normal 8.5-10.1 [facility] Comment on above: Performed By: #### T SH, CMP #### [facility] [address] [place] [address] Dr. Willam Novoa Chloride [Moles/Vol] 103 mmol/L Normal 98-107 [facility] Comment on above: Performed By: #### T SH, CMP #### [facility] [address] [place] [address] Dr. Willam Novoa CO2 [Moles/Vol] 27.1 mmol/L Normal 21.0-32.0 [facility] Comment on above: Performed By: #### T SH, CMP #### [facility] [address] [place] [address] Dr. Willam Novoa Creatinine [Mass/Vol] 0.74 mg/dL Normal 0.55-1.02 [facility] Comment on above: Performed By: #### T SH, CMP #### [facility] [address] [place] [address] Dr. Willam Novoa EGFR-AF AFGHAN >60 Normal >=60 [facility] Comment on above: Performed By: #### T SH, CMP #### [facility] [address] [place] [address] Dr. Willam Novoa EGFR-NON AF AFGHAN >60 Normal >=60 [facility] Comment on above: Performed By: #### T SH, CMP #### [facility] [address] [place] [address] Dr. Willam Novoa Globulin (S) [Mass/Vol] 3.3 g/dL Normal [facility] Comment on above: Performed By: #### T SH, CMP #### [facility] [address] [address] [address] Willam Novoa Glucose [Mass/Vol] 194 mg/dL Critically high 74-106 [facility] Comment on above: Performed By: #### T SH, CMP #### [facility] [address] [place] [address] Dr. Willam Novoa Potassium [Moles/Vol] 4.0 mmol/L Normal 3.5-5.1 [facility] Comment on above: Performed By: #### T SH, CMP #### [facility] [address] [place] [address] Dr. Willam Novoa Protein [Mass/Vol] 7.4 g/dL Normal 6.4-8.2 [facility] Comment on above: Performed By: #### T SAVANNAH, CMP #### [facility] [address] [place] [address] Dr. Willam Novoa Sodium [Moles/Vol] 142 mmol/L Normal 136-145 [facility] Comment on above: Performed By: #### T SAVANNAH, CMP #### [facility] [address] [place] [address] Dr. Willam Novoa Urea nitrogen [Mass/Vol] 19.0 mg/dL Critically high 7.0-18.0 [facility] Comment on above: Performed By: #### T SAVANNAH, CMP #### [facility] [address] [place] [address] Dr. Willam Novoa Urea nitrogen/Creatinine [Mass ratio] 25.7 mg/mg Normal [facility] Comment on above: Performed By: #### T SAVANNAH, CMP #### [facility] [address] [place] [address] Dr. Willam Novoa TSHon 05-24-2022 TSH 1.350 uIU/mL Normal 0.358-3.740 [facility] Comment on above: Performed By: #### T SAVANNAH, CMP #### [facility] [address] [place] [address] Dr. 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: [facility] 04-26-2025 17:29-0400 Body temperature 98.49 [degF] Judi Aichholz MOLDING MACHINE OPERATOR Work Phone: [facility] 04-26-2025 17:29-0400 Body weight 93.08 kg Judi Aichholz MOLDING MACHINE OPERATOR Work Phone: [facility] 04-26-2025 17:29-0400 Diastolic blood pressure 80 mm[Hg] Judi Aichholz MOLDING MACHINE OPERATOR Work Phone: [facility] 04-26-2025 17:29-0400 Heart rate 99 /min Judi Aichholz MOLDING MACHINE OPERATOR Work Phone: [facility] 04-26-2025 17:29-0400 Respiratory rate 18 /min Judi Aichholz MOLDING MACHINE OPERATOR Work Phone: [facility] 04-26-2025 17:29-0400 SaO2% (BldA) [Mass fraction] 98 % Judi Aichholz MOLDING MACHINE OPERATOR Work Phone: [facility] 04-26-2025 17:29-0400 Systolic blood pressure 140 mm[Hg] Judi Aichholz MOLDING MACHINE OPERATOR Work Phone: [facility] 01-25-2025 17:40-0400 Body mass index (BMI) [Ratio] 36.28 kg/m2 Judi Aichholz MOLDING MACHINE OPERATOR Work Phone: [facility] 01-25-2025 17:40-0400 Body temperature 98.71 [degF] Judi Aichholz MOLDING MACHINE OPERATOR Work Phone: [facility] 01-25-2025 17:40-0400 Body weight 92.9 kg Judi Aichholz MOLDING MACHINE OPERATOR Work Phone: [facility] 01-25-2025 17:40-0400 Diastolic blood pressure 82 mm[Hg] Judi Aichholz MOLDING MACHINE OPERATOR Work Phone: [facility] 01-25-2025 17:40-0400 Heart rate 98 /min Judi Bhavaniholz MOLDING MACHINE OPERATOR Work Phone: [facility] 01-25-2025 17:40-0400 Respiratory rate 19 /min Judi Aichholz MOLDING MACHINE OPERATOR Work Phone: [facility] 01-25-2025 17:40-0400 SaO2% (BldA) [Mass fraction] 98 % Judi Aichholz MOLDING MACHINE OPERATOR Work Phone: [facility] 01-25-2025 17:40-0400 Systolic blood pressure 132 mm[Hg] Judi Aichholz MOLDING MACHINE OPERATOR Work Phone: [facility] 12-12-2024 17:36-0400 Body height 160 cm Judi Aichholz MOLDING MACHINE OPERATOR Work Phone: [facility] 12-12-2024 17:36-0400 Body mass index (BMI) [Ratio] 36.99 kg/m2 Judi Aichholz MOLDING MACHINE OPERATOR Work Phone: [facility] 12-12-2024 17:36-0400 Body temperature 97.81 [degF] Judi Aichholz MOLDING MACHINE OPERATOR Work Phone: [facility] 12-12-2024 17:36-0400 Body weight 94.71 kg Judi Nilahholz MOLDING MACHINE OPERATOR Work Phone: [facility] 12-12-2024 17:36-0400 Diastolic blood pressure 88 mm[Hg] Judi Aichholz MOLDING MACHINE OPERATOR Work Phone: [facility] 12-12-2024 17:36-0400 Heart rate 108 /min Judi Aichholz MOLDING MACHINE OPERATOR Work Phone: [facility] 12-12-2024 17:36-0400 Respiratory rate 19 /min Judi Aichholz MOLDING MACHINE OPERATOR Work Phone: [facility] 12-12-2024 17:36-0400 SaO2% (BldA) [Mass fraction] 92 % Judi Aichholz MOLDING MACHINE OPERATOR Work Phone: [facility] 12-12-2024 17:36-0400 Systolic blood pressure 142 mm[Hg] Judi Toussaintz MOLDING MACHINE OPERATOR Work Phone: [facility] 09-14-2024 17:31-0500 Body height 160 cm Judi Bhavaniholz MOLDING MACHINE OPERATOR Work Phone: [facility] 09-14-2024 17:31-0500 Body mass index (BMI) [Ratio] 35.89 kg/m2 Judi Bhavaniholz MOLDING MACHINE OPERATOR Work Phone: [facility] 09-14-2024 17:31-0500 Body temperature 98.49 [degF] Judi Nilahholz MOLDING MACHINE OPERATOR Work Phone: [facility] 09-14-2024 17:31-0500 Body weight 91.9 kg Judi Bhavaniholz MOLDING MACHINE OPERATOR Work Phone: [facility] 09-14-2024 17:31-0500 Diastolic blood pressure 84 mm[Hg] Judi Bhavaniholz MOLDING MACHINE OPERATOR Work Phone: [facility] 09-14-2024 17:31-0500 Heart rate 97 /min Judi Nilahholz MOLDING MACHINE OPERATOR Work Phone: [facility] 09-14-2024 17:31-0500 Respiratory rate 18 /min Judi Bhavaniholz MOLDING MACHINE OPERATOR Work Phone: [facility] 09-14-2024 17:31-0500 SaO2% (BldA) [Mass fraction] 95 % Judi Bhavaniholz MOLDING MACHINE OPERATOR Work Phone: [facility] 09-14-2024 17:31-0500 Systolic blood pressure 132 mm[Hg] Judi Nilahholz MOLDING MACHINE OPERATOR Work Phone: [facility] 07-13-2024 17:43-0400 Body height 160 cm Judi Nilahholz MOLDING MACHINE OPERATOR Work Phone: [facility] 07-13-2024 17:43-0400 Body mass index (BMI) [Ratio] 36 kg/m2 Judi Nilahholz MOLDING MACHINE OPERATOR Work Phone: [facility] 07-13-2024 17:43-0400 Body temperature 97.5 [degF] Judi Jimenez MOLDING MACHINE OPERATOR Work Phone: [facility] 07-13-2024 17:43-0400 Body weight 92.17 kg Judirico Beckhamholz MOLDING MACHINE OPERATOR Work Phone: [facility] 07-13-2024 17:43-0400 Diastolic blood pressure 82 mm[Hg] Judi Beckhamholz MOLDING MACHINE OPERATOR Work Phone: [facility] 07-13-2024 17:43-0400 Heart rate 97 /min Judi Nilahholz MOLDING MACHINE OPERATOR Work Phone: [facility] 07-13-2024 17:43-0400 Respiratory rate 18 /min Judi Beckhamholz MOLDING MACHINE OPERATOR Work Phone: [facility] 07-13-2024 17:43-0400 SaO2% (BldA) [Mass fraction] 98 % Judi Beckhamholz MOLDING MACHINE OPERATOR Work Phone: [facility] 07-13-2024 17:43-0400 Systolic blood pressure 124 mm[Hg] Judi Bhavaniholz MOLDING MACHINE OPERATOR Work Phone: [facility] 12-18-2021 11:00-0400 Body height 165.1 cm Yash Jeffries Other [facility] Other 12-18-2021 11:00-0400 Body mass index (BMI) [Ratio] 36.27 kg/m2 Yash Jeffries Other [facility] Other 12-18-2021 11:00-0400 Body weight 98.88 kg Yash Jeffries Other [facility] Other 08-12-2021 14:00-0500 Body height 165.1 cm Yash Jeffries Other [facility] Other 08-12-2021 14:00-0500 Body mass index (BMI) [Ratio] 36.27 kg/m2 Yash Jeffries Other [facility] Other 08-12-2021 14:00-0500 Body weight 98.88 kg Yash Jeffries Other [facility] Other 08-12-2021 14:00-0500 Diastolic blood pressure 79 mm[Hg] Yash Jeffries Other [facility] Other 08-12-2021 14:00-0500 Systolic blood pressure 130 mm[Hg] Yash Jeffries Other [facility] Other Encounters Encounter Date Encounter Type Care Provider Facility Start: 05-29-2025 End: 05-29-2025 Refill Judi Jimenez MOLDING MACHINE OPERATOR Work Phone: [facility] Comment on above: Type 2 diabetes nicanor itus with insulin therapy (HCC) Start: 04-26-2025 End: 04-26-2025 Office outpatient visit 25 minutes Judi Jimenez MOLDING MACHINE OPERATOR Work Phone: [facility] Comment on above: Type 2 diabetes nicanor itus with insulin therapy (HCC) (Primary Dx); Primary hypertension ; Gastro-esophageal reflux disease without esophagitis; Morbid (severe) obesity due to excess calories ([facility]-HCC); Spinal stenosis of lumbar region, unspecified whether neurogenic claudication present; Chronic bilateral low back pain without sciatica; Seborrheic keratoses, inflamed; Mixed hyperlipidemia ; Cerebral infarction, unspecified ([facility]); Vitamin D deficiency; Gastroesophageal reflux disease without esophagitis Start: 04-26-2025 End: 04-26-2025 ambulatory JUDI TONY Not Available Start: 04-26-2025 End: 04-26-2025 Bamboo flowsheet Judi Jimenez MOLDING MACHINE OPERATOR Work Phone: [facility] Start: 04-26-2025 End: 04-26-2025 Bamboo flowsheet Judi Jimenez MOLDING MACHINE OPERATOR Work Phone: [facility] Start: 04-07-2025 End: 04-09-2025 Refill Judi Tony MOLDING MACHINE OPERATOR Work Phone: [facility] Comment on above: Cerebral infarction, unspecified (HCC) Start: 04-04-2025 End: 04-05-2025 Refill Judi Tony MOLDING MACHINE OPERATOR Work Phone: [facility] Comment on above: Type 2 diabetes nicanor itus with insulin therapy (HCC); Primary hypertension ; Mixed hyperlipidemia Start: 04-03-2025 End: 04-03-2025 Refill Judi Tony MOLDING MACHINE OPERATOR Work Phone: [facility] Comment on above: 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 (HCC) Start: 03-13-2025 End: 03-13-2025 ambulatory Farzana Arreguin MD Facility:[facility] Start: 03-08-2025 End: 03-08-2025 Refill Judi Tony MOLDING MACHINE OPERATOR Work Phone: [facility] Comment on above: Type 2 diabetes nicanor itus with insulin therapy ([facility]) (Primary Dx) Start: 02-10-2025 End: 02-10-2025 Clinisync Result Encounter Generic External Data Provider [facility] External Department Unsolicited Start: 02-10-2025 End: 02-10-2025 Clinisync Result Encounter Generic External Data Provider [facility] External Department Unsolicited Start: 01-25-2025 End: 01-25-2025 Patient encounter procedure Judi Jimenez MOLDING MACHINE OPERATOR Work Phone: [facility] Comment on above: Encounter for subseq uent annual wellness visit (AWV) in Medicare patient (Primary Dx); Type 2 diabetes mellitus with diabetic neuropathy, unspecified whether correction insulin use ([facility]); Primary hypertension ([facility]); Gastro-esophageal reflux disease without esophagitis; Morbid (severe) obesity due to excess calories ([facility]); Type 2 diabetes mellitus with insulin therapy ([facility]); Mixed hyperlipidemia (CMS/[facility]); Mixed simple and mucopurulent chronic bronchitis ([facility]); Vitamin D deficiency; Gastroesophageal reflux disease without esophagitis Start: 01-25-2025 End: 01-25-2025 ambulatory JUDI AICHHOLZ Not Available Start: 01-25-2025 End: 01-25-2025 Bamboo flowsheet Judi Aichholz MOLDING MACHINE OPERATOR Work Phone: [facility] Start: 01-25-2025 End: 01-25-2025 Bamboo flowsheet Judi Aichholz MOLDING MACHINE OPERATOR Work Phone: [facility] Start: 01-21-2025 End: 01-22-2025 Refill Judi Aichholz MOLDING MACHINE OPERATOR Work Phone: [facility] Comment on above: 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 ([facility]) Start: 01-14-2025 End: 01-16-2025 Refill Judi Aichholz MOLDING MACHINE OPERATOR Work Phone: [facility] Comment on above: Mixed simple and muc opurulent chronic bronchitis ([facility]) Start: 01-09-2025 End: 01-09-2025 ambulatory Farzana Arreguin MD Facility:[facility] Start: 01-06-2025 End: 01-06-2025 Clinisync Result Encounter Judi Aichholz MOLDING MACHINE OPERATOR Work Phone: [facility] External Department Unsolicited Start: 01-06-2025 End: 01-06-2025 Clinisync Result Encounter Judi Aichholz MOLDING MACHINE OPERATOR Work Phone: [facility] External Department Unsolicited Start: 01-05-2025 End: 01-05-2025 Refill Judi Aichholz MOLDING MACHINE OPERATOR Work Phone: [facility] Comment on above: Type 2 diabetes nicanor itus with insulin therapy ([facility]) (Primary Dx) Start: 01-03-2025 End: 01-03-2025 Refill Judi Aichholz MOLDING MACHINE OPERATOR Work Phone: [facility] Comment on above: 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 ([facility]/HCC) Start: 12-12-2024 End: 12-12-2024 Office outpatient visit 25 minutes Judi Jimenez MOLDING MACHINE OPERATOR Work Phone: [facility] Comment on above: Type 2 diabetes nicanor itus with insulin therapy ([facility]/HCC) (Primary Dx); Type 2 diabetes mellitus with diabetic neuropathy, unspecified ([facility]); Morbid (severe) obesity due to excess calories ([facility]); Gastro-esophageal reflux disease without esophagitis; Body mass index (BMI) 35.0-35.9, adult; Primary hypertension ([facility]); Vitamin D deficiency; Encounter for screening mammogram for malignant neoplasm of breast; Lung nodule seen on imaging study; Chronic bilateral low back pain without sciatica Start: 12-12-2024 End: 12-12-2024 ambulatory JUID AICHHOLZ Not Available Start: 10-31-2024 End: 10-31-2024 Refill Judi Norbertz MOLDING MACHINE OPERATOR Work Phone: [facility] Comment on above: Type 2 diabetes nicanor itus with insulin therapy ([facility]) (Primary Dx) Start: 10-17-2024 End: 10-17-2024 Refill Judi Norbertz MOLDING MACHINE OPERATOR Work Phone: [facility] Comment on above: 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 ([facility]/HCC) Start: 09-15-2024 End: 09-15-2024 Refill Judi Aickarlaz MOLDING MACHINE OPERATOR Work Phone: [facility] Comment on above: Type 2 diabetes nicanor itus with insulin therapy ([facility]/HCC) (Primary Dx) Chronic bilateral lo w back pain without sciatica; Type 2 diabetes mellitus with insulin therapy ([facility]/HCC) Start: 09-14-2024 End: 09-14-2024 Office outpatient visit 25 minutes Judi Jimenez MOLDING MACHINE OPERATOR Work Phone: [facility] Comment on above: Type 2 diabetes nicanor itus with insulin therapy ([facility]/HCC) (Primary Dx); Type 2 diabetes mellitus with diabetic neuropathy, 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 ([facility]); Primary hypertension ([facility]); Gastroesophageal reflux disease without esophagitis; Obesity (BMI 30-39.9); Mixed hyperlipidemia ([facility]); Cerebrovascular accident (CVA), unspecified mechanism ([facility]); Type 2 diabetes mellitus treated without insulin ([facility]); Chronic bilateral low back pain without sciatica Start: 09-14-2024 End: 09-14-2024 ambulatory JUDI JIMENEZ Not Available Start: 09-14-2024 End: 09-14-2024 Refill Judirico Jimenez MOLDING MACHINE OPERATOR [facility] Phone[facility] Comment on above: Type 2 diabetes nicanor itus with insulin therapy ([facility]) Start: 08-23-2024 End: 08-23-2024 Telephone encounter Judi Jimenez MOLDING MACHINE OPERATOR Work Phone: [facility] Start: 08-22-2024 End: 08-24-2024 Telephone encounter Edda Kaur MOLDING MACHINE OPERATOR Work Phone: [facility] Comment on above: order clarification Start: 08-15-2024 End: 08-15-2024 Bamboo flowsheet Edda Kaur MOLDING MACHINE OPERATOR Work Phone: [facility] Start: 08-15-2024 End: 08-15-2024 Bamboo flowsheet Edda Kaur MOLDING MACHINE OPERATOR Work Phone: [facility] Start: 08-15-2024 End: 08-15-2024 Office outpatient new 30 minutes Edda Kaur NP Work Phone: [facility] Comment on above: Right knee pain, uns pecified chronicity (Primary Dx); Chronic pain of right knee; Status post right knee replacement Start: 08-15-2024 End: 08-15-2024 ambulatory EDDA KAUR Not Available Start: 08-08-2024 End: 08-08-2024 External Result Encounter Judi Jimenez MOLDING MACHINE OPERATOR Work Phone: [facility] External Department Unsolicited Start: 08-08-2024 End: 08-08-2024 External Result Encounter Judi Jimenez MOLDING MACHINE OPERATOR Work Phone: [facility] External Department Unsolicited Start: 08-08-2024 End: 08-08-2024 ambulatory Judi Robledo Nilakatiejose Work Phone: [facility] Work Phone: Start: 08-08-2024 End: 08-08-2024 Patient encounter procedure Judi Beckhamjose Work Phone: [facility] Work Phone: Start: 08-04-2024 End: 08-04-2024 Clinisync Result Encounter Judi Dotsontroy MOLDING MACHINE OPERATOR Work Phone: [facility] External Department Unsolicited Start: 08-04-2024 End: 08-04-2024 Clinisync Result Encounter Judi Beckhamjose MOLDING MACHINE OPERATOR Work Phone: [facility] External Department Unsolicited Start: 08-04-2024 End: 08-04-2024 Refill Judi Bhavaniholz MOLDING MACHINE OPERATOR Work Phone: [facility] Comment on above: UTI symptoms (Primar y Dx) Start: 08-02-2024 End: 08-02-2024 Orders Only Judi Norbertz MOLDING MACHINE OPERATOR Work Phone: [facility] Comment on above: Urinary frequency (P rimary Dx) Start: 07-25-2024 End: 07-25-2024 Orders Only Judi Bhavaniholz MOLDING MACHINE OPERATOR Work Phone: [facility] Comment on above: Hemoptysis (Primary Dx); Lung nodule seen on imaging study Start: 07-20-2024 End: 07-20-2024 Refill Judi Aichholz MOLDING MACHINE OPERATOR Work Phone: [facility] Comment on above: 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) Start: 07-18-2024 End: 07-18-2024 Refill Judi Aichholz MOLDING MACHINE OPERATOR Work Phone: [facility] Comment on above: Chronic pain of righ t knee (Primary Dx); Leukocytosis, unspecified type Chronic pain of righ t knee (Primary Dx) Start: 07-13-2024 End: 07-13-2024 Office outpatient visit 25 minutes Judirico Jimenez MOLDING MACHINE OPERATOR Work Phone: [facility] Comment on above: Type 2 diabetes nicanor itus with insulin therapy (CMS/HCC) (Primary Dx); Primary hypertension (CMS/HCC); Hemoptysis; Chronic pain of right knee; 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); Obesity (BMI 30-39.9) Start: 07-13-2024 End: 07-13-2024 ambulatory JUDI AICHHOLZ Not Available Start: 07-13-2024 End: 07-13-2024 Bamboo flowsheet Judi Bhavaniholz MOLDING MACHINE OPERATOR Work Phone: [facility] Start: 07-13-2024 End: 07-13-2024 Bamboo flowsheet Judi Aichholz MOLDING MACHINE OPERATOR Work Phone: [facility] Start: 06-29-2024 End: 06-29-2024 Refill Judi Aichholz MOLDING MACHINE OPERATOR Work Phone: [facility] Comment on above: COVID (Primary Dx) Start: 06-20-2024 End: 06-20-2024 Refill Juid Aichholz MOLDING MACHINE OPERATOR Work Phone: [facility] Comment on above: Mixed hyperlipidemia (CMS/HCC) Start: 06-07-2024 End: 06-07-2024 Refill Judi Aichholz MOLDING MACHINE OPERATOR Work Phone: [facility] Comment on above: Type 2 diabetes nicanor itus with insulin therapy (CMS/HCC) (Primary Dx) Start: 12-28-2023 Patient encounter procedure Judi Bhavaniholz MOLDING MACHINE OPERATOR Work Phone: [facility] Start: 11-13-2023 Refill Judi Aichholz MOLDING MACHINE OPERATOR Work Phone: [facility] Comment on above: Gastroesophageal ref lux disease without esophagitis (Primary Dx) Start: 09-11-2023 End: 09-12-2023 ambulatory JUDI J NILAKatieGABYAure Facility:[facility] Start: 09-11-2023 End: 09-11-2023 Patient encounter procedure JUDI Robledo NILAKatieGABYAure [facility] Start: 06-03-2023 End: 07-18-2023 Pre-admission assessment JUDI Robledo NILAKatieGABYAure [facility] Start: 01-17-2023 End: 01-18-2023 ambulatory ELEANOR JIMENEZ Facility:[facility] Start: 12-27-2022 End: 12-28-2022 ambulatory PIE BOTTOMER JUDI NILAKatieGABYAure Facility:[facility] Start: 05-27-2022 Encounter for genera l adult medical examination without abnormal findings DR CELIA CRUZ [facility] Start: 05-24-2022 End: 05-25-[address] CELIA CRUZ Facility:[facility] Start: 05-24-2022 End: 05-25-2022 Encounter for general adult medical examination without abnormal findings DR CELIA CRUZ Facility:[facility] Start: 04-20-[address] CELIA CRUZ Facili ty:[facility] Start: 12-18-2021 End: 12-18-2021 ambulatory Yash Jeffries Other [facility] Other Start: 12-18-2021 Postop follow up vis it related to original px Yash Jeffries [facility] [place] Start: 10-02-2021 End: 10-02-2021 ambulatory Yash Jeffries Other [facility] Other Start: 10-02-2021 Telephone encounter Yash Parker [facility] Start: 09-23-2021 End: 09-23-2021 ambulatory Yash Jeffries Other [facility] Other Start: 09-23-2021 Telephone encounter Yash Parker [facility] Start: 08-12-2021 End: 08-12-2021 ambulatory Yash Jeffries Other [facility] Other Start: 08-12-2021 Office outpatient vi sit 25 minutes Yash Jeffries [facility] Neuro[facility] Procedures Date Procedure Procedure Detail Performing Clinician Start: 04-26-2025 Hemoglobin glycosylated a1c Judi Jimenez MOLDING MACHINE OPERATOR Work Phone: Start: 02-10-2025 MR LUMBAR SPINE WO CON Generic External Data Provider Start: 01-06-2025 MM TOMOSYNTHESIS SCR EENING BI Judi Jimenez MOLDING MACHINE OPERATOR Work Phone: Start: 01-06-2025 CT CHEST W CONTRAST Graciela Jimenez MOLDING MACHINE OPERATOR Work Phone: Start: 01-06-2025 Mammography Judi beckett MOLDING MACHINE OPERATOR Work Phone: Start: 12-12-2024 Hemoglobin glycosylated a1c Judi Jimenez MOLDING MACHINE OPERATOR Work Phone: Start: 08-08-2024 GLUCOSE POCT GLUCOMETERS Judi Jimenez MOLDING MACHINE OPERATOR Work Phone: Start: 08-08-2024 Positron emission tomography with computed tomography Judi Jimenez Work Phone: Start: 08-04-2024 TB UA (CLEAN/CATCH) MICROSCOPIC IF INDICATE Judi Jimenez MOLDING MACHINE OPERATOR Work Phone: Start: 12-02-2023 Mammography Judi beckett MOLDING MACHINE OPERATOR Work Phone: Plan of Treatment Date Care Activity Detail Author Start: 09-05-2026 Glaucoma screening Diabetes: R etinopathy Screening [facility] Start: 03-23-2026 Screening for malign ant neoplasm of colon [facility] Start: 01-29-2026 End: 01-29-2026 Patient encounter procedure 01/29/2026 5:30 PM EDT Office Visit [facility] [address] [place] [address] Judi Jimenez NP [address] [place] [id number] [facility] Start: 01-25-2026 Medicare Annual Wellness (AWV) Medicare Annual Wellness (AWV) [facility] Start: 01-06-2026 Screening for malign ant neoplasm of breast Mammogram [facility] Start: 12-29-2025 Urine screening for protein Diabetes: Urine Protein Screening [facility] Start: 08-02-2025 End: 08-02-2025 Patient encounter procedure 08/02/2025 6:00 PM EDT Office Visit [facility] [address] [place] [address] Judi Jimenez NP [address] [place] [id number] [facility] Start: 07-27-2025 Hemoglobin A1c measurement Diabetes: Hemoglobin A1C [facility] Start: 07-03-2025 End: 07-03-2025 Patient encounter procedure 07/03/2025 6:30 PM EDT Office Visit [facility] [address] [place] [address] Judi Jimenez NP [address] [place] [phone] [facility] Start: 05-29-2025 End: 05-29-2025 Patient encounter procedure 05/29/2025 7:20 PM EDT Office Visit [facility] [address] [place] [address] Judi Jimenez NP [address] [place] [phone] [facility] Start: 04-26-2025 End: 04-26-2025 Patient encounter procedure [facility] Comment on above: Primary hypertension (Primary Dx); Gastro-esophageal reflux disease without esophagitis; Type 2 diabetes mellitus with insulin therapy (HCC); Morbid (severe) obesity due to excess calories ([facility]) Start: 04-16-2025 Glaucoma screening Diabetes: R etinopathy Screening [facility] Start: 03-14-2025 Hemoglobin A1c measurement Diabetes: Hemoglobin A1C [facility] Start: 01-25-2025 End: 01-25-2025 Patient encounter procedure [facility] Comment on above: Type 2 diabetes nicanor itus with diabetic neuropathy, 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 ([facility]) (Primary Dx); Primary hypertension ([facility]); Gastro-esophageal reflux disease without esophagitis; Morbid (severe) obesity due to excess calories ([facility]); Type 2 diabetes mellitus with insulin therapy ([facility]); Encounter for subsequent annual wellness visit (AWV) in Medicare patient Start: 01-11-2025 End: 01-11-2025 Patient encounter procedure 01/11/2025 5:30 PM EDT Office Visit [facility] [address] [place] [address] Judi Jimenez NP [address] [place] [phone] [facility] Start: 12-27-2024 Medicare Annual Wellness (AWV) Medicare Annual Wellness (AWV) [facility] Start: 12-12-2024 End: 12-12-2024 Patient encounter procedure 12/12/2024 5:30 PM EDT Office Visit [facility] [address] [place] [address] Judi Jimenez NP [address] [place] [address] [facility] Start: 12-12-2024 End: 12-12-2025 25-hydroxyvitamin D3 [Mass/volume] in Serum or Plasma Vitamin D 25 hydroxy Lab Routine Vitamin D deficiency Expected: 12/12/2024 (Approximate), Expires: 12/12/2025 [facility] Comment on above: Expected: 12/12/2024 (Approximate), Expires: 12/12/2025 Start: 12-12-2024 End: 12-12-2025 CBC W Auto Differential panel - Blood CBC and differential Lab Routine Gastro-esophageal reflux disease without esophagitis Expected: 12/12/2024 (Approximate), Expires: 12/12/2025 [facility] Work Phone: Comment on above: Expected: 12/12/2024 (Approximate), Expires: 12/12/2025 Start: 12-12-2024 End: 12-12-2025 Comprehensive metabolic 2000 panel - Serum or Plasma Comprehensive metabolic panel Lab Routine Type 2 diabetes mellitus with diabetic neuropathy, unspecified (CMS/HCC) Primary hypertension (CMS/HCC) Type 2 diabetes mellitus with insulin therapy (CMS/HCC) Vitamin D deficiency Expected: 12/12/2024 (Approximate), Expires: 12/12/2025 [facility] Comment on above: Expected: 12/12/2024 (Approximate), Expires: 12/12/2025 Start: 12-12-2024 End: 12-12-2025 CT Chest W contrast IV CT chest w IV contrast Imaging Routine Lung nodule seen on imaging study Expected: 12/12/2024 (Approximate), Expires: 12/12/2025 [facility] Comment on above: Expected: 12/12/2024 (Approximate), Expires: 12/12/2025 Start: 12-12-2024 End: 12-12-2025 Lipid 1996 panel - Serum or Plasma Lipid panel Lab Routine Type 2 diabetes mellitus with insulin therapy (CMS/HCC) Expected: 12/12/2024 (Approximate), Expires: 12/12/2025 [facility] Comment on above: Expected: 12/12/2024 (Approximate), Expires: 12/12/2025 Start: 12-12-2024 End: 02-11-2026 MG Breast - bilateral Screening Bilateral screening mammogram Imaging Routine Encounter for screening mammogram for malignant neoplasm of breast Expected: 12/12/2024 (Approximate), Expires: 02/11/2026 [facility] Comment on above: Expected: 12/12/2024 (Approximate), Expires: 02/11/2026 Start: 12-12-2024 End: 12-12-2025 Microalbumin/Creatinine panel in random Urine Microalbumin / creatinine, urine ratio Lab Routine Primary hypertension ([facility]) Type 2 diabetes mellitus with insulin therapy ([facility]) Expected: 12/12/2024 (Approximate), Expires: 12/12/2025 [facility] Comment on above: Expected: 12/12/2024 (Approximate), Expires: 12/12/2025 Start: 12-12-2024 End: 12-12-2025 Urinalysis complete panel - Urine Urinalysis with reflex microscopic (clean catch) Lab Routine Primary hypertension ([facility]) Type 2 diabetes mellitus with insulin therapy ([facility]) Expected: 12/12/2024 (Approximate), Expires: 12/12/2025 [facility] Comment on above: Expected: 12/12/2024 (Approximate), Expires: 12/12/2025 Start: 12-02-2024 Screening for malign ant neoplasm of breast Mammogram [facility] Start: 12-02-2024 Urine screening for protein Diabetes: Urine Protein Screening [facility] Start: 10-14-2024 Hemoglobin A1c measurement Diabetes: Hemoglobin A1C [facility] Start: 09-14-2024 End: 09-14-2024 Patient encounter procedure 09/14/2024 5:30 PM EST Office Visit [facility] [address] [place] [phone] Judi Jimenez NP [address] [place] [phone] [facility] Start: 08-15-2024 End: 08-15-2025 NM Bone Limited Views NM Bone 3PH SPECT Imaging Routine Status post right knee replacement Expected: 08/15/2024 (Approximate), Expires: 08/15/2025 [facility] Work Phone: Comment on above: Expected: 08/15/2024 (Approximate), Expires: 08/15/2025 Start: 08-15-2024 End: 08-15-2024 Patient encounter procedure 08/15/2024 1:45 PM EST Office Visit [facility] [address] [facility] [place] [phone] Edda Kaur NP [address] [place] [address] [facility] Start: 08-10-2024 End: 08-10-2024 Patient encounter procedure 08/10/2024 5:30 PM EST Office Visit [facility] [address] [place] [address] Judi Jimenez NP [address] [place] [address] [facility] Start: 08-02-2024 End: 08-02-2025 Bacteria identified in Urine by Culture Urine culture (clean catch) Microbiology Routine Urinary frequency Expected: 08/02/2024 (Approximate), Expires: 08/02/2025 [facility] Comment on above: Expected: 08/02/2024 (Approximate), Expires: 08/02/2025 Start: 08-02-2024 End: 08-02-2025 Urinalysis complete panel - Urine Urinalysis with reflex microscopic (clean catch) Lab Routine Urinary frequency Expected: 08/02/2024 (Approximate), Expires: 08/02/2025 [facility] Work Phone: Comment on above: Expected: 08/02/2024 (Approximate), Expires: 08/02/2025 Start: 07-25-2024 End: 07-25-2025 PET+CT Bone from skull base to mid-thigh W [id number]-NaF IV PET/CT skull base to mid thigh Imaging Routine Hemoptysis Lung nodule seen on imaging study Expected: 07/25/2024 (Approximate), Expires: 07/25/2025 [facility] Work Phone: Comment on above: Expected: 07/25/2024 (Approximate), Expires: 07/25/2025 Start: 07-13-2024 End: 07-13-2024 Patient encounter procedure [facility] Comment on above: Type 2 diabetes nicanor itus with insulin therapy (CMS/HCC) (Primary Dx); Primary hypertension (CMS/HCC) Start: 07-13-2024 End: 07-13-2025 Basic metabolic 1998 panel - Serum or Plasma Basic metabolic panel Lab Routine Type 2 diabetes mellitus with insulin therapy ([facility]/HCC) Expected: 07/13/2024 (Approximate), Expires: 07/13/2025 [facility] Comment on above: Expected: 07/13/2024 (Approximate), Expires: 07/13/2025 Start: 07-13-2024 End: 07-13-2025 C reactive protein [Mass/volume] in Serum or Plasma C-reactive protein Lab Routine Chronic pain of right knee Expected: 07/13/2024 (Approximate), Expires: 07/13/2025 [facility] Comment on above: Expected: 07/13/2024 (Approximate), Expires: 07/13/2025 Start: 07-13-2024 End: 07-13-2025 CBC W Auto Differential panel - Blood CBC and differential Lab Routine Chronic pain of right knee Expected: 07/13/2024 (Approximate), Expires: 07/13/2025 [facility] Comment on above: Expected: 07/13/2024 (Approximate), Expires: 07/13/2025 Start: 07-13-2024 End: 07-13-2025 CT Chest W contrast IV CT chest w IV contrast Imaging Routine Hemoptysis Expected: 07/13/2024 (Approximate), Expires: 07/13/2025 [facility] Comment on above: Expected: 07/13/2024 (Approximate), Expires: 07/13/2025 Start: 07-13-2024 End: 07-13-2025 Erythrocyte sedimentation rate Sedimentation rate, automated Lab Routine Chronic pain of right knee Expected: 07/13/2024 (Approximate), Expires: 07/13/2025 [facility] Comment on above: Expected: 07/13/2024 (Approximate), Expires: 07/13/2025 Start: 07-13-2024 End: 07-13-2025 Hemoglobin A1c/Hemoglobin.total in Blood Hemoglobin A1c Lab Routine Type 2 diabetes mellitus with insulin therapy ([facility]) Expected: 07/13/2024 (Approximate), Expires: 07/13/2025 [facility] Work Phone: Comment on above: Expected: 07/13/2024 (Approximate), Expires: 07/13/2025 Start: 07-13-2024 End: 07-13-2025 XR Knee - right 3 Views XR knee 3 views right Imaging Routine Chronic pain of right knee Expected: 07/13/2024, Expires: 07/13/2025 [facility] Comment on above: Expected: 07/13/2024 , Expires: 07/13/2025 Start: 06-10-2024 Hemoglobin A1c measurement Diabetes: Hemoglobin A1C [facility] Start: 11-23-2023 End: 11-23-2023 Patient encounter procedure 11/23/2023 6:00 PM EST Office Visit [facility] [address] [place] [phone] Judi Jimenez, RUFINO [address] [place] [phone] [facility] Start: 06-05-2023 Influenza vaccination Influenza Vacc ine (#1) [facility] Start: 1996 Screening for malign ant neoplasm of breast Mammogram [facility] Start: 12-27-1975 Urine screening for protein Diabetes: Urine Protein Screening [facility] Start: 1966 Glaucoma screening Diabetes: R etinopathy Screening [facility] Start: 1962 Pneumococcal Vaccine : 65+ Years (1 - PCV) Pneumococcal Vaccine: 65+ Years (1 - PCV) [facility] Start: 1956 Hemoglobin A1c measurement Diabetes: Hemoglobin A1C [facility] Start: 1956 Medicare Annual Wellness (AWV) Medicare Annual Wellness (AWV) [facility] Start: 1956 Screening for malign ant neoplasm of colon [facility] Immunizations Immunization Date Immunization Notes Care Provider Fa cility 12-11-2024 ABRYSVO - Respirator y syncytial virus (RSV), vaccine, bivalent, protein subunit RSV prefusion F, diluent reconstituted, 0.5 mL, PF Judi Jimenez MOLDING MACHINE OPERATOR Work Phone: [facility] 08-08-2024 Influenza, injectable, Madin Jeane Canine Kidney, preservative free, quadrivalent Edda Apling MOLDING MACHINE OPERATOR Work Phone: [facility] 06-28-2021 Pfizer Purple Cap SARS-CoV-2 Vaccination Judi Aichholz MOLDING MACHINE OPERATOR Work Phone: [facility] 01-13-2021 Pfizer Purple Cap SARS-CoV-2 Vaccination Judi Aichholz MOLDING MACHINE OPERATOR Work Phone: [facility] 01-03-2021 Pfizer Purple Cap SARS-CoV-2 Vaccination Judi Aichholz MOLDING MACHINE OPERATOR Work Phone: [facility] 12-13-2020 Pfizer Purple Cap SARS-CoV-2 Vaccination Judi Aichholz MOLDING MACHINE OPERATOR Work Phone: [facility] 07-09-2020 influenza, high dose seasonal, preservative-free Judi Aichholz MOLDING MACHINE OPERATOR Work Phone: [facility] 07-09-2020 influenza virus vaccine, unspecified formulation Judi Aichholz MOLDING MACHINE OPERATOR Work Phone: [facility] 07-08-2020 influenza, injectable, quadrivalent, preservative free Judi Aichholz MOLDING MACHINE OPERATOR Work Phone: [facility] NEGATED: Highlighted row has not occurred!09-20-2021 influenza, injectable, quadrivalent, preservative free Judi Aichholz Work Phone: [facility] Payers Date Payer Category Payer Self-pay [id number] 2024 Medicare [id number] 2024 Medicare (Managed Care) [employer] [id number] 2024 Unknown [employer] D [employer] [id number] 2024-Present [address] [place] [id number] 2024 Unknown [id number] 2017 Medicare [id number] 1959 Medicare [id number] 1959 Self-pay [id number] 1956 Unknown [id number] 2.16.840.1.971280.3.579.2. 593 1956 Unknown [id number] 2.16.840.1.764960.3.579.2. 593 1956 Unknown [id number] 2.16.840.1.057123.3.579.2. 593 1956 Unknown [id number] 2.16.840.1.759492.3.579.2. 593 1956 Unknown [id number] 2.16.840.1.142487.3.579.2. 727 1956 Unknown [id number] 2.16.840.1.745262.3.579.2. 1259 1956 Unknown [id number] 2.16.840.1.618159.3.579.2. 1259 1956 Unknown [id number] 2.16.840.1.429037.3.579.2. 1259 1956 Unknown [id number] 2.16.840.1.617140.3.579.2. 1259 1956 Unknown [id number] 2.16.840.1.497915.3.579.2. 1259 1956 Unknown [id number] 2.16.840.1.408110.3.579.2. 1259 1956 Unknown [id number] 2.16.840.1.663200.3.579.2. 196 1956 Unknown [id number] 2.16.840.1.179037.3.579.2. 196 Medicaid Medicaid [id number] Medicare Medicare [id number] Unknown [id number]. 531 Social History Date Type Detail Facility Unknown if ever smoked [facility] Other Start: 10-30-2023 End: 12-28-2023 Sex Assigned At [facility] Tobacco smoking status No Smokin g Status Entered [facility] Start: 10-05-1990 End: 01-12-2025 Tobacco smoking status [facility] Smokes tobacco daily [facility] Start: 10-05-1990 History of tobacco use Cigarette Smoker [facility] Start: 10-30-2023 End: 12-28-2023 Cigarettes smoked current (pack per day) - Reported 0.5 [facility] Start: 1955 Sex Assigned At Not on file [facility] Start: 07-13-2024 End: 04-26-2025 Alcoholic beverage intake Ex-drinker (finding) [facility] Within the last year , have you been afraid of your partner or ex-partner? No [facility] Do you belong to any clubs or organizations such as mandaen groups, unions, fraternal [...] - these days [OSQ] Not at all [facility] (I/We) worried wheth er (my/our) food would run out before (I/we) got money to buy more. Never true [facility] Start: 07-27-2024 Tobacco smoking status NHIS Never smoked tobacco (finding) [facility] Start: 1955 Sex Assigned At Female [facility] Medical Equipment Procedure Code Equipment Code Equipment Origin al Text Equipment Identifier Dates 1 each by Other route Daily Start: 12-02-2023 Spinal fixation plate, non-bioabsorbable ()[id number] FDA Start: 09-19-2021 Bone-screw inter nal spinal fixation system, non-sterile ()[id number] FDA Start: 09-19-2021 Bone-screw inter nal spinal fixation system, non-sterile ()[id number] FDA Start: 09-19-2021 Bone-screw inter nal spinal fixation system, non-sterile ()[id number] FDA Start: 09-19-2021 Intervertebral-b ashely internal spinal fixation system ()[id number] FDA Start: 09-19-2021 Functional Status Date Assessment Result Facility 01-25-2025 Patient Health Quest ionnaire 2 item (PHQ-2) [Reported] [facility] Clinical Notes 08-12-2021 to 04-26-2025 Judi Jimenez NP - 04/26/2025 6:12 PM Areli Jimenez NP - 04/26/2025 6:11 PM Areli Jimenez NP - 04/26/2025 6:09 PM Areli Jimenez NP - 04/26/2025 5:30 PM EDTPatient Instructions Note Date & Type Note Facility 04-26-2025 History of Presen t illness Narrative Associated Problem(s): Seborrheic keratoses, inflamed Lesions around bra strap and she can schedule a fu appt for removal Associated Problem(s): Chronic bilateral low back pain without sciatica Under care of [facility] Pain Mgmt No help with injections, muscle relaxants and anti convulsants have caused extreme side effects Having effect on QOL, not sure what to do, does not want spine surgery Encouraged to speak to pain mgmt regarding her concerns Associated Problem(s): Lumbar spinal stenosis Does not want to see neurosurgeon Pain levels 7/10 with radiation into legs Images from the original note were not included. Vani Kauffman is a 69 y.o. female presents with chief complaint of Diabetes HPI: CGM: 7 day 137 avg 88% TIR, 12 % high GMI 6.6% 14 fpm486 avg 89 % TIR, 11% high GMI [...] tremors. Pertinent negatives for diabetes include no chest pain, no polydipsia, no polyphagia and no polyuria. There are no hypoglycemic complications. Symptoms are stable. Risk factors for coronary artery disease include diabetes mellitus, dyslipidemia, hypertension, obesity and sedentary lifestyle. Current diabetic treatment includes insulin injections and oral agent (dual therapy) (GLP 1). Her weight is stable. An JOSE ROBERTO inhibitor/angiotensin II receptor winsome is being taken. Eye exam is current. SUBJECTIVE: MEDICATIONS: Current Outpatient Medications Medication Instructions amLODIPine (NORVASC) 10 mg, Oral, Daily atorvastatin (LIPITOR) 80 mg, Oral, Nightly Breztri Aerosphere 160-9-4.8 MCG/ACT aerosol 2 puffs, 2 times daily clopidogrel (PLAVIX) 75 mg, Oral, Daily Continuous Glucose Arboriculturist (FreeStyle Laure 3 Cameron) device 1 each, Does not apply, Daily Continuous Glucose Sensor (FreeStyle Laure 3 Sensor) [employer] USE DIRECTED to test BLOOD SUGAR DAILY; [...] 11/23/2023 Gastroesophageal reflux disease without esophagitis 10/06/2023 custodial (current) use of insulin (HCC) Menopause 11/23/2023 Mixed hyperlipidemia 09/17/2023 Neoplasm of uncertain behavior 11/23/2023 Nontoxic goiter Osteoarthritis of right knee 11/23/2023 Primary hypertension 10/01/2023 Right upper extremity numbness Stroke (HCC) 11/23/2023 Type 2 diabetes mellitus with insulin therapy ([facility]) 11/23/2023 Visual impairment 11/23/2023 Vitamin D deficiency Past Surgical History: Procedure Laterality Date CERVICAL FUSION 1999 HYSTERECTOMY KNEE ARTHROPLASTY Right 2017 [place] KNEE SURGERY Right 2019 knee Infection in operative knee, treated at [facility] family history includes Breast cancer in her mother; Cancer in her mother; Diabetes in her sister; Multiple sclerosis in her sister; No Known Problems in her son; Thyroid disease in her sister. OBJECTIVE: Visit Vitals BP 140/80 (BP Location: Left arm, Patient Position: Sitting, BP Cuff Size: Adult long) Pulse 99 Temp 98.5 F (Temporal) Resp 18 Wt 205 lb 3.2 oz SpO2 98% BMI 36.35 kg/m Smoking Status Every Day BSA 2.03 [...] Relevant Medications ergocalciferol (Vitamin D2) 1.25 MG (91507 UT) capsule Chronic bilateral low back pain without sciatica Under care of [facility] Pain Mgmt No help with injections, muscle relaxants and anti convulsants have caused extreme side effects Having effect on QOL, not sure what to do, does not want spine surgery Encouraged to speak to pain mgmt regarding her concerns Morbid (severe) obesity due to excess calories (CMS-HCC) Discussed with patient their BMI (actual, verses [...] Pain levels 7/10 with radiation into legs Seborrheic keratoses, inflamed Lesions around bra strap and she can schedule a fu appt for removal Other Visit Diagnoses Cerebral infarction, unspecified (HCC) Relevant Medications clopidogrel (Plavix) 75 MG tablet Gastroesophageal reflux disease without esophagitis Relevant Medications famotidine (Pepcid) 20 MG tablet pantoprazole (ProtoNix) 40 MG EC tablet Associated Problem(s): Morbid (severe) obesity due to excess calories ([facility]-HCC) Discussed with patient their BMI (actual, verses recommended). We have also discussed lifestyle modifications: attempts to perform physical activity as chronic conditions allow, also to monitor dietary intake: increasing protein/fruits/veggies and lowering carb intake (unless contraindicated). Limit sodas, juices, and sugary drinks. Does take mounjaro for tx of her DM Associated Problem(s): Type 2 diabetes mellitus with [...] 6.9% 12/12/24 Increase mounjaro to 12.5mg weekly Associated Problem(s): Gastro-esophageal reflux disease without esophagitis Recommendations: freq small meals, nothing to eat or drink at least 2 hours prior to bed, limit caffeine, alcohol, as well as spicy foods Meds to limit or avoid if possible: NSAIDS Elevate HOB if possible Current med: pantoprazole Associated Problem(s): Primary hypertension Please check blood pressure [...] meds for this documented in this encounter [facility] 04-26-2025 Instructions Judi Jimenez NP - 04/26/2025 5:30 PM EDT Increase mounjaro to 12.5mg weekly documented in this encounter [facility] 01-25-2025 History of Presen t illness Narrative [...] being taken. She does not see a chief controller.Eye exam is current. Hypertension This is a [...] compliance problems. There is no history of CAD/SD, heart failure or PVD. SUBJECTIVE: MEDICATIONS: Current Outpatient Medications Medication Instructions amLODIPine (NORVASC) 10 mg, Oral, Daily atorvastatin (LIPITOR) 80 mg, Oral, Nightly Mdocmkz-Tmypxmusbdp-Dnzcrmtwtx (Breztri Aerosphere) 160-9-4.8 MCG/ACT aerosol 2 puffs, Inhalation, 2 times daily Continuous Glucose Arboriculturist (FreeStyle Laure 3 Cameron) device 1 each, Does not apply, Daily Continuous Glucose Sensor (FreeStyle Laure 3 Sensor) muscogee USE DIRECTED to test BLOOD SUGAR DAILY; [...] 11/23/2023 Diabetic neuropathy, type II diabetes mellitus ([facility]) 11/23/2023 Elevated alkaline phosphatase level 11/23/2023 Gastroesophageal reflux disease without esophagitis 10/06/2023 keno terminal operator (current) use of insulin ([facility]) Menopause 11/23/2023 Mixed hyperlipidemia ([facility]) 09/17/2023 Neoplasm of uncertain behavior 11/23/2023 Nontoxic goiter ([facility]) Osteoarthritis of right knee 11/23/2023 Primary hypertension ([facility]) 10/01/2023 Right upper extremity numbness Stroke ([facility]) 11/23/2023 Type 2 diabetes mellitus with insulin therapy ([facility]) 11/23/2023 Visual impairment 11/23/2023 Vitamin D deficiency Past Surgical History: Procedure Laterality Date CERVICAL FUSION 1999 HYSTERECTOMY KNEE ARTHROPLASTY Right 2017 [place] KNEE SURGERY Right 2019 knee Infection in operative knee, treated at [facility] family history includes Breast cancer in her [...] List Items Addressed This Visit Mixed hyperlipidemia ([facility]) Relevant Medications atorvastatin (Lipitor) 80 MG tablet Primary hypertension ([facility]) Please check blood pressure daily [...] 2 diabetes mellitus with diabetic neuropathy, unspecified ([facility]) - Primary No current meds for this Gabapentin gave bad nightmares Does not want to trial lyrica Type 2 diabetes mellitus with insulin therapy ([facility]) Check blood sugars daily, notify [...] sensor, and #2 samples given : lot [id number] exp 02/01/25 Relevant Medications empagliflozin (Jardiance) 25 MG Tirzepatide (Mounjaro) 10 MG/0.5ML solution auto-injector metFORMIN (Glucophage) 1000 MG tablet insulin glargine (Basaglar KwikPen) 100 UNIT/ML pen Vitamin D deficiency Relevant Medications ergocalciferol (Vitamin D2) 1.25 MG (47195 UT) capsule Encounter for subsequent annual wellness visit (AWV) in Medicare patient Reviewed Ht/Wt/BMI Recommend eye exam yearly Recommend dental exams twice a year Exercises is recommended most days of the week (appropriate as chronic conditions allow) Follow up yearly and prn 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) Relevant Medications Cdcrlhh-Lwnikgunqlv-Zbbwnjcipi (Breztri Aerosphere) 160-9-4.8 MCG/ACT aerosol Morbid (severe) [...] sensor, and #2 samples given : lot [id number] exp 02/01/25 Associated Problem(s): Morbid (severe) obesity [...] 2 diabetes mellitus with diabetic neuropathy, unspecified ([facility]) No current meds for this Gabapentin gave bad nightmares Does not want to trial lyrica documented in this encounter [facility] 01-25-2025 Instructions Judi Jimenez NP - 01/25/2025 5:30 PM EDT No med changes documented in this encounter [facility] 12-12-2024 History of Presen t illness Narrative Associated Problem(s): Chronic bilateral low back pain without sciatica Clinically is not better despite muscle relaxers and is willing to see Pain Mgmt I will also give a short supply of M[place], last given in 09/27 OARRS reviewed Images [...] (PLAVIX) 75 mg, Oral, Daily Continuous Glucose Arboriculturist (FreeStyle Laure 3 Cameron) device 1 each, Does not apply, Daily Continuous Glucose Sensor (FreeStyle Laure 3 Sensor) muscogee USE DIRECTED to test BLOOD SUGAR DAILY; change EVERY 14 days empagliflozin (JARDIANCE) 25 mg, Oral, Every morning ergocalciferol (VITAMIN D2) 1.25 mg, Oral, Weekly famotidine (PEPCID) 20 mg, Oral, Nightly HYDROcodone-acetaminophen ([place]ccaus[place]) 5-325 MG tablet 1 tablet, Oral, Every [...] 11/23/2023 Diabetic neuropathy, type II diabetes mellitus ([facility]) 11/23/2023 Elevated alkaline phosphatase level 11/23/2023 Gastroesophageal reflux disease without esophagitis 10/06/2023 Menopause 11/23/2023 Mixed hyperlipidemia ([facility]) 09/17/2023 Neoplasm of uncertain behavior 11/23/2023 Osteoarthritis of right knee 11/23/2023 Primary hypertension ([facility]) 10/01/2023 Right upper extremity numbness Stroke ([facility]) 11/23/2023 Type 2 diabetes mellitus with insulin therapy ([facility]) 11/23/2023 Visual impairment 11/23/2023 Past Surgical History: Procedure Laterality Date CERVICAL FUSION 1999 KNEE ARTHROPLASTY Right 2017 [place] KNEE SURGERY Right 2019 knee Infection in operative knee, treated at [facility] family history is not on file. [...] List Items Addressed This Visit Primary hypertension ([facility]) Please check blood pressure daily [...] 2 diabetes mellitus with diabetic neuropathy, unspecified ([facility]) No current meds for this Gabapentin gave bad nightmares Does not want to trial lyrica Relevant Orders Comprehensive metabolic panel Type 2 diabetes mellitus with insulin therapy ([facility]) - Primary Check blood sugars [...] sensor, and #2 samples given : lot [id number] exp 02/01/25 Relevant Orders POCT glycosylated hemoglobin [...] will also give a short supply of Mccausland, last given in 09/27 OARRS reviewed Relevant Medications HYDROcodone-acetaminophen (Mccausland) 5-325 MG tablet Other Relevant Orders Ambulatory [...] Type 2 diabetes mellitus with insulin therapy ([facility]) Check blood sugars daily, notify [...] sensor, and #2 samples given : lot [id number] exp 02/01/25 Associated Problem(s): Morbid (severe) obesity due to excess calories ([facility]) Discussed with patient their BMI [...] to trial lyrica documented in this encounter [facility] 12-12-2024 Instructions Judi Jimenez NP - 12/12/2024 5:30 PM EDT Lower dose on insulin to 55 units daily, add back metformin Fu in 4 weeks, bring reader with you Increase your protein snacks: cheese, yogurt, chicken, turkey, peanut butter, eggs Will send order for fu CT chest and mammogram to [facility]: they should call, if you do not hear from them in 2 weeks call [phone], ext [phone] Will refer to Pain Management at [facility] documented in this encounter [facility] 09-14-2024 History of Presen t illness Narrative [...] being taken. She does not see a chief controller.Eye exam is current. Hypertension This is a [...] is no history of kidney disease or CAD/SD. Back Pain This is a chronic problem. [...] famotidine (PEPCID) 20 mg, Oral, Nightly HYDROcodone-acetaminophen (Mccausland) 5-325 MG tablet 1 tablet, Oral, Every [...] 11/23/2023 Diabetic neuropathy, type II diabetes mellitus ([facility]) 11/23/2023 Elevated alkaline phosphatase level 11/23/2023 Gastroesophageal reflux disease without esophagitis 10/06/2023 Menopause 11/23/2023 Mixed hyperlipidemia ([facility]) 09/17/2023 Neoplasm of uncertain behavior 11/23/2023 Osteoarthritis of right knee 11/23/2023 Primary hypertension ([facility]) 10/01/2023 Right upper extremity numbness Stroke ([facility]) 11/23/2023 Type 2 diabetes mellitus with insulin therapy ([facility]) 11/23/2023 Visual impairment 11/23/2023 Past Surgical History: Procedure Laterality Date CERVICAL FUSION 2000 KNEE ARTHROPLASTY Right 2017 [place] KNEE SURGERY Right 2019 knee Infection in operative knee, treated at [facility] family history is not on file. [...] List Items Addressed This Visit Mixed hyperlipidemia ([facility]) Current meds: statin Check labs yearly and prn Relevant Medications atorvastatin (Lipitor) 80 MG tablet Primary hypertension ([facility]) Please check blood pressure daily [...] pantoprazole (ProtoNix) 40 MG EC tablet Stroke ([facility]) Current meds: asa, plavix, statin Relevant Medications clopidogrel (Plavix) 75 MG tablet Diabetic neuropathy, type II diabetes mellitus ([facility]) No current meds for this Gabapentin gave bad nightmares Does not want to trial lyrica Type 2 diabetes mellitus with insulin therapy ([facility]) - Primary Check blood sugars [...] thrown off OARRS reviewed Relevant Medications HYDROcodone-acetaminophen (Mccausland) 5-325 MG tablet tiZANidine (Zanaflex) 4 MG tablet Other Visit Diagnoses Type 2 diabetes mellitus treated without insulin (CMS/[facility]) Associated Problem(s): Stroke (CMS/[facility]) Current meds: asa, plavix, statin Associated Problem(s): Mixed hyperlipidemia (CMS/HCC) Current meds: statin Check labs yearly and prn Associated Problem(s): Type 2 diabetes mellitus with insulin therapy ([facility]) Check blood sugars daily, notify [...] Problem(s): Diabetic neuropathy, type II diabetes mellitus ([facility]/HCC) No current meds for this Gabapentin gave bad nightmares Does not want to trial lyrica documented in this encounter [facility] 09-14-2024 Instructions Judi Jimenez NP - 09/14/2024 5:30 PM EST Try muscle relaxer tizanidine at 4mg before bedtime as needed for muscle spasms in back Stretching exercises If not better consider Pain Mgmt documented in this encounter [facility] 08-23-2024 Telephone encount er Note Contact pt, I received notification from her insurance that her lantus insulin will not be covered after I think the first of the year, so I sent in a substitute which is basaglar , same dose as her lantus was at 55 units daily. So once she is out of her lantus then switch over to the basaglar [facility] 08-23-2024 Miscellaneous Notes Formattin g of [...] to the basaglar documented in this encounter [facility] 08-22-2024 Telephone encount er Note Sylwia from [facility] radiology called and left vm regarding order sent over on pt for nuc med triple phase bone scan, she would like clarification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 Medicine 10/30/23 Jamir Hare MD [address] [place] [address] PCP - Devoted 01/04/24 Judi Jiemnez NP [address] [place] [address] Nurse Practitioner Family Medicine 10/05/22 Roller Checker Relationship Specialty Start Date End Date Jamir Hare MD [address] [place] [address] PCP - General Family Medicine 10/30/23 Jamir Hare MD [address] [place] [address] PCP - Devoted 01/04/24 Judi Jimenez NP [address] [place] [address] Nurse Practitioner Family Medicine 10/05/22 Roller Checker Relationship Specialty Start Date End Date Jamir Hare MD [address] [place] [address] PCP - General Family Medicine 10/30/23 Jamir Hare MD [address] [place] [address] PCP - Devoted 01/04/24 Judi Jimenez NP [address] [place] [address] Nurse Practitioner Family Medicine 10/05/22 Roller Checker Relationship Specialty Start Date End Date Jamir Hare MD [address] [place] [address] PCP - General Family Medicine 10/30/23 Jamir Hare MD [address] [place] [address] PCP - Devoted 01/04/24 Judi Jimenez NP [address] [place] [address] Nurse Practitioner Family Medicine 10/05/22 Roller Checker Relationship Specialty Start Date End Date Jamir Hare MD [address] [place] [address] PCP - General Family Medicine 10/30/23 Jamir aHre MD [address] [place] [address] PCP - Devoted 01/04/24 Judi Jimenez NP [address] [place] [address] Nurse Practitioner Family Medicine 10/05/22 Roller Checker Relationship Specialty Start Date End Date Jamir Hare MD [address] [place] [address] PCP - General Family Medicine 10/30/23 Jamir Hare MD [address] [place] [address] PCP - Devoted 01/04/24 Judi Jimenez NP [address] [place] [address] Nurse Practitioner Family Medicine 10/05/22 Team Status: Active Member Role Status Dates Judi Jimenez Primary Care Provider Active Team Status: Inactive Member Role Status Dates Judi Jimenez Primary Care Provide r, Attending Provider Active Start: August 08, 2024 End: August 08, 2024 Roller Checker Relationship Specialty Start Date End Date Jamir Hare MD [address] [place] [address] PCP - General Family Medicine 10/30/23 Jamir Hare MD [address] [place] [address] PCP - Devoted 01/04/24 Judi Jimenez NP [address] [place] [address] Nurse Practitioner Family Medicine 10/05/22 Roller Checker Relationship Specialty Start Date End Date Jamir Hare MD [address] [place] [address] PCP - General Family Medicine 10/30/23 Jamir Hare MD [address] [place] [address] PCP - Devoted 01/04/24 Judi Jimenez NP [address] [place] [address] Nurse Practitioner Family Medicine 10/05/22 Roller Checker Relationship Specialty Start Date End Date Jamir Hare MD [address] [place] [address] PCP - General Family Medicine 10/30/23 Jamir Hare MD [address] [place] [address] PCP - Devoted 01/04/24 Judi Jimenez NP [address] [place] [address] Nurse Practitioner Family Medicine 10/05/22 Roller Checker Relationship Specialty Start Date End Date Jamir Hare MD [address] [place] [address] PCP - General Family Medicine 10/30/23 Jamir Hare MD [address] [place] [address] PCP - Devoted 01/04/24 Judi Jimenez NP [address] [place] [address] Nurse Practitioner Family Medicine 10/05/22 Roller Checker Relationship Specialty Start Date End Date Jamir Hare MD [address] [place] [address] PCP - General Family Medicine 10/30/23 Jamir Hare MD [address] [place] [address] PCP - Devoted 01/04/24 Judi Jimenez NP [address] [place] [address] Nurse Practitioner Family Medicine 10/05/22 Roller Checker Relationship Specialty Start Date End Date Jamir Hare MD [address] [place] [address] PCP - General Family Medicine 10/30/23 Jamir Hare MD [address] [place] [address] PCP - Devoted 01/04/24 Judi Jimenez NP [address] [place] [address] Nurse Practitioner Family Medicine 10/05/22 Roller Checker Relationship Specialty Start Date End Date Jamir Hare MD [address] [place] [address] PCP - General Family Medicine 10/30/23 Jamir Hare MD [address] [place] [address] PCP - Devoted 01/04/24 Judi Jimenez NP [address] [place] [address] Nurse Practitioner Family Medicine 10/05/22 Roller Checker Relationship Specialty Start Date End Date Jamir Hare MD [address] [place] [address] PCP - General Family Medicine 10/30/23 Jamir Hare MD [address] [place] [address] PCP - Devoted 01/04/24 Judi Jimenez NP [address] [place] [address] Nurse Practitioner Family Medicine 10/05/22 Roller Checker Relationship Specialty Start Date End Date Jamir Hare MD [address] [place] [address] PCP - General Family Medicine 10/30/23 Jamir Hare MD [address] [place] [address] PCP - Devoted 01/04/24 Judi Jimenez NP [address] [place] [address] Nurse Practitioner Family Medicine 10/05/22 Roller Checker Relationship Specialty Start Date End Date Jamir Hare MD [address] [place] [address] PCP - General Family Medicine 10/30/23 Jamir Hare MD [address] [place] [address] PCP - Devoted 01/04/24 Judi Jimenez NP [address] [place] [address] Nurse Practitioner Family Medicine 10/05/22 Roller Checker Relationship Specialty Start Date End Date Jamir Hare MD [address] [place] [address] PCP - General Family Medicine 10/30/23 Jamir Hare MD [address] [place] [address] PCP - Devoted 01/04/24 Judi Jimenez NP [address] [place] [address] Nurse Practitioner Family Medicine 10/05/22 Roller Checker Relationship Specialty Start Date End Date Jamir Hare MD [address] [place] [address] PCP - General Family Medicine 10/30/23 Jamir Hare MD [address] [place] [address] PCP - Devoted 01/04/24 Judi Jimenez NP [address] [place] [address] Nurse Practitioner Family Medicine 10/05/22 Roller Checker Relationship Specialty Start Date End Date Jamir Hare MD [address] [place] [address] PCP - General Family Medicine 10/30/23 Jamir Hare MD [address] [place] [address] PCP - Devoted 01/04/24 Judi Jimenez NP [address] [place] [address] Nurse Practitioner Family Medicine 10/05/22 Roller Checker Relationship Specialty Start Date End Date Jamir Hare MD [address] [place] [address] PCP - General Family Medicine 10/30/23 Jamir Hare MD [address] [place] [address] PCP - Devoted 01/04/24 Judi Jimenez NP [address] [place] [address] Nurse Practitioner Family Medicine 10/05/22 Roller Checker Relationship Specialty Start Date End Date Jamir Hare MD [address] [place] [address] PCP - General Family Medicine 10/30/23 Jamir Hare MD [address] [place] [address] PCP - Devoted 01/04/24 Judi Jimenez NP [address] [place] [address] Nurse Practitioner Family Medicine 10/05/22 Roller Checker Relationship Specialty Start Date End Date Jamir Hare MD [address] [place] [address] PCP - General Family Medicine 10/30/23 Jamir Hare MD [address] [place] [address] PCP - Devoted 01/04/24 Judi Jimenez NP [address] [place] [address] Nurse Practitioner Family Medicine 10/05/22 Roller Checker Relationship Specialty Start Date End Date Jamir Hare MD [address] [place] [address] PCP - General Family Medicine 10/30/23 Jamir Hare MD [address] [place] [address] PCP - Devoted 01/04/24 Judi Jimenez NP [address] [place] [address] Nurse Practitioner Family Medicine 10/05/22 Roller Checker Relationship Specialty Start Date End Date Jamir Hare MD [address] [place] [address] PCP - General Family Medicine 10/30/23 Jamir Hare MD [address] [place] [address] PCP - Devoted 01/04/24 Judi Jimenez NP [address] [place] [address] Nurse Practitioner Family Medicine 10/05/22 Roller Checker Relationship Specialty Start Date End Date Jamir Hare MD [address] [place] [address] PCP - General Family Medicine 10/30/23 Jamir Hare MD [address] [place] [address] PCP - Devoted 01/04/24 Judi Jimenez NP [address] [place] [address] Nurse Practitioner Family Medicine 10/05/22 Roller Checker Relationship Specialty Start Date End Date Jamir Hare MD [address] [place] [address] PCP - General Family Medicine 10/30/23 Jamir Hare MD [address] [place] [address] PCP - Devoted 01/04/24 Judi Jimenez NP [address] [place] [address] Nurse Practitioner Family Medicine 10/05/22 Roller Checker Relationship Specialty Start Date End Date Jamir Hare MD [address] [place] [address] PCP - General Family Medicine 10/30/23 Jamir Hare MD [address] [place] [address] PCP - Devoted 01/04/24 Judi Jimenez NP [address] [place] [address] Nurse Practitioner Family Medicine 10/05/22 Roller Checker Relationship Specialty Start Date End Date Jamir Hare MD [address] [place] [address] PCP - General Family Medicine 10/30/23 Jamir Hare MD [address] [place] [address] PCP - Devoted 01/04/24 Judi Jimenez NP [address] [place] [address] Nurse Practitioner Family Medicine 10/05/22 Roller Checker Relationship Specialty Start Date End Date Jamir Hare MD [address] [place] [address] PCP - General Family Medicine 10/30/23 Jamir Hare MD [address] [place] [address] PCP - Devoted 01/04/24 Judi Jimenez NP [address] [place] [address] Nurse Practitioner Family Medicine 10/05/22 Roller Checker Relationship Specialty Start Date End Date Jamir Hare MD [address] [place] [address] PCP - General Family Medicine 10/30/23 Jamir Hare MD [address] [place] [address] PCP - Devoted 01/04/24 Judi Jimenez NP [address] [place] [address] Nurse Practitioner Family Medicine 10/05/22 Roller Checker Relationship Specialty Start Date End Date Jamir Hare MD [address] [place] [address] PCP - General Family Medicine 10/30/23 Jamir Hare MD [address] [place] [address] PCP - Devoted 01/04/24 Judi Jimenez NP [address] [place] [address] Nurse Practitioner Family Medicine 10/05/22 Roller Checker Relationship Specialty Start Date End Date Jamir Hare MD [address] [place] [address] PCP - General Family Medicine 10/30/23 Jamir Hare MD [address] [place] [address] PCP - Devoted 01/04/24 Judi Jimenez NP [address] [place] [address] Nurse Practitioner Family Medicine 10/05/22 Roller Checker Relationship Specialty Start Date End Date Jamir Hare MD [address] [place] [address] PCP - General Family Medicine 10/30/23 Jamir Hare MD [address] [place] [address] PCP - Devoted 01/04/24 Judi Jmienez NP [address] [place] [address] Nurse Practitioner Family Medicine 10/05/22 Roller Checker Relationship Specialty Start Date End Date Jamir Hare MD [address] [place] [address] PCP - General Family Medicine 10/30/23 Jamir Hare MD [address] [place] [address] PCP - Devoted 01/04/24 Judi Jimenez NP [address] [place] [address] Nurse Practitioner Family Medicine 10/05/22 Roller Checker Relationship Specialty Start Date End Date Jamir Hare MD [address] [place] [address] PCP - General Family Medicine 10/30/23 Jamir Hare MD [address] [place] [address] PCP - Devoted 01/04/24 Judi Jimenez NP [address] [place] [address] Nurse Practitioner Family Medicine 10/05/22 Goals (unrecognized [...] BE BASED ON THE PRIMARY CLINICAL RECORDS. [facility]. provides no warranty or guarantee of the accuracy or completeness of information in this document.
== END 2025-05-31 11:53 | disposition home or self-care (01) ==
LOC: RAD 11:55
PROVIDERS: PCP Nurse Practitioner; Visit Provider Nurse Practitioner
DX: M48.062 Spinal stenosis, lumbar region with neurogenic claudication (principal); M41.86 Other forms of scoliosis, lumbar region; M51.369 Other intervertebral disc degeneration, lumbar region without mention of lumbar back pain or lower extremity pain
CPT/HCPCS: 72114